=== PATIENT | male | born 1940 | race African-American/Black ===

== ENCOUNTER 2017-03-03 11:16 | Inpatient (IN) | payer OTHER, MEDICARE ==
[2017-03-03] VITALS (11 sets, daily range): BP systolic 144–224; BP diastolic 85–117; PULSE 71–104; RESP 16–20; TEMP 97–98.3; O2SAT 96–100
[~2017-03-03] VITALS: Ht 170.2 cm; Wt 97.7 kg
[2017-03-03] MEDS ORDERED: SODIUM CHLOR 0.9% 1000 ML INJ 1,000 ML IV ONE (11:23)
[2017-03-03] MEDS ORDERED: SODIUM CHLORIDE 0.9% FLUSH 10 ML FLUSH IV FLUSH PRN ×2 (11:30→14:00)
--- NOTE | 2017-03-03 11:41 | PD ---
HPI Chief Complaint: General Weakness Time Seen by Provider: 11:34 Travel History International Travel<30 days: No Contact w/Intl Traveler<30days: No Traveled to known affect area: No History of Present Illness HPI 77-year-old Afro-[place]ian male presents to emergency department via EMS after a near syncopal event at local restaurant all trying to urinate in the bathroom. Patient is alert and oriented currently although somewhat obtunded. He is complaining of need to urinate but is unable to. Patient is a poor historian. He appears disheveled, homeless, and dehydrated. His chief complaint is needing to urinate. He is an alcoholic who drinks daily. He denies any other injury or pain. He denies recent fever, chills, nausea, vomiting, or diarrhea. He has no known drug allergies. [facility] Past Medical History Medical History: Unable to Obtain Arthritis: Yes Blood Disorders: No Cancer: No Cardiovascular Problems: Yes Endocrine: No Genitourinary: Yes (unable to urinate) Immune Disorder: No Musculoskeletal: Yes Neurologic: No Psychiatric: No Respiratory: No Seizures: Yes (as a child) Past Surgical History AICD: No Joint Replacement: No Pacemaker: No Social History Alcohol Use: Yes Tobacco Use: Yes Substance Use: Yes (states crack cocaine and marijuana) Allergies-Medications (Allergen,Severity, Reaction): Coded Allergies: No Known Allergies (Verified , 03/03/17) Reported Meds & Prescriptions Reported Meds & Active Scripts Active Review of Systems ROS Limitations: Altered Mental Status, Poor Historian General / Constitutional: No: Fever Eyes: No: Visual changes HENT: No: Headaches Cardiovascular: No: Chest Pain or Discomfort Respiratory: No: Shortness of Breath Gastrointestinal: No: Abdominal Pain Genitourinary: No: Dysuria Musculoskeletal: No: Pain Skin: No Rash Neurologic: No: Weakness Psychiatric: No: Depression Endocrine: No: Polydipsia Hematologic/Lymphatic: No: Easy Bruising Physical Exam Exam Limitations: Clinical Condition, Altered Mental Status, Poor Historian Narrative GENERAL: Patient appears him to this and in mild to moderate distress due to urinary retention. Patient is disheveled and unkempt. SKIN: Warm and dry. Normal color. Poor turgor with tenting present. HEAD: Atraumatic. Normocephalic. EYES: Pupils equal and round. No scleral icterus. No injection or drainage. ENT: No nasal bleeding or discharge. Mucous membranes pink and moist. Pharynx is clear. Airway is patent. NECK: Trachea midline. No JVD. Supple nontender. CARDIOVASCULAR: Regular rate and rhythm. No murmurs gallops or rubs appreciated. RESPIRATORY: No accessory muscle use. Clear to auscultation. Breath sounds equal bilaterally. GASTROINTESTINAL: Abdomen soft, non-tender, nondistended. Hepatic and splenic margins not palpable. Abdominal pain is improved after Buchanan catheter placed with over a liter of urine drained within 5 minutes. MUSCULOSKELETAL: Extremities without clubbing, cyanosis, or edema. No obvious deformities. NEUROLOGICAL: Awake and alert. No obvious cranial nerve deficits. Motor grossly within normal limits. Five out of 5 muscle strength in the arms and legs. Normal speech. PSYCHIATRIC: Difficult to obtain based on the patient's clinical condition. Data Data Last Documented VS Vital Signs Date Time Temp Pulse Resp B/P Pulse Ox O2 Delivery O2 Flow Rate FiO2 03/03/17 11:41 97.0 84 16 174/103 97 Room Air Orders Complete Blood Count With Diff (03/03/17 11:23) Comprehensive Metabolic Panel (03/03/17 11:23) Lactic Acid (03/03/17 11:23) Urinalysis - C+S If Indicated (03/03/17 11:23) Iv Access Insert/Monitor (03/03/17 11:23) Ecg Monitoring (03/03/17 11:23) Oximetry (03/03/17 11:23) Sodium Chloride 0.9% Flush (Ns Flush) (03/03/17 11:30) Electrocardiogram (03/03/17 11:23) Urinary Catheter Insert/Apply (03/03/17 11:23) Blood Culture (03/03/17 11:23) Magnesium (Mg) (03/03/17 11:23) Ckmb (Isoenzyme) Profile (03/03/17 11:23) Troponin I (03/03/17 11:23) Act Partial Throm Time (Ptt) (03/03/17 11:23) Prothrombin Time / Inr (Pt) (03/03/17 11:23) Sodium Chlor 0.9% 1000 Ml Inj (Ns 1000 M (03/03/17 11:23) Drug Screen, Random Urine (03/03/17 11:33) Alcohol (Ethanol) (03/03/17 11:33) Thiamine Inj (Thiamine Inj) (03/03/17 11:45) Chest, Single Ap (03/03/17 11:41) Urine Culture (03/03/17 11:35) Ceftriaxone Inj (Rocephin Inj) (03/03/17 12:30) CKMB (03/03/17 11:40) CKMB% (03/03/17 11:40) Potassium Chlor 20 Meq Premix (Kcl 20 Me (03/03/17 13:00) Aspirin Chew (Aspirin Chew) (03/03/17 13:00) Metoprolol Tartrate Inj (Lopressor Inj) (03/03/17 13:00) Admit Order (Ed Use Only) (03/03/17 13:14) Labs Laboratory Tests Test 03/03/17 03/03/17 11:35 11:40 Urine Color LIGHT-YELLOW Urine Turbidity HAZY Urine pH 6.5 Urine Specific [place] 1.013 Urine Protein TRACE mg/dL Urine Glucose (UA) NEG mg/dL Urine Ketones NEG mg/dL Urine Occult Blood SMALL Urine Nitrite NEG Urine Bilirubin NEG Urine Urobilinogen LESS THAN 2.0 MG/DL Urine Leukocyte Esterase MOD Urine RBC 3 /hpf Urine WBC 37 /hpf Urine Bacteria MANY /hpf Urine Mucus FEW /lpf Microscopic Urinalysis Comment CULTURE INDICATED White Blood Count 9.6 TH/MM3 Red Blood Count 4.64 MIL/MM3 Hemoglobin 14.2 GM/DL Hematocrit 43.5 % Mean Corpuscular Volume 93.8 FL Mean Corpuscular Hemoglobin 30.7 PG Mean Corpuscular Hemoglobin 32.7 % Concent Red Cell Distribution Width 13.4 % Platelet Count 233 TH/MM3 Mean Platelet Volume 7.5 FL Neutrophils (%) (Auto) 89.4 % Lymphocytes (%) (Auto) 7.2 % Monocytes (%) (Auto) 2.7 % Eosinophils (%) (Auto) 0.1 % Basophils (%) (Auto) 0.6 % Neutrophils # (Auto) 8.6 TH/MM3 Lymphocytes # (Auto) 0.7 TH/MM3 Monocytes # (Auto) 0.3 TH/MM3 Eosinophils # (Auto) 0.0 TH/MM3 Basophils # (Auto) 0.1 TH/MM3 CBC Comment DIFF FINAL Differential Comment Prothrombin Time 12.7 SEC Prothromb Time International 1.1 RATIO Ratio Activated Partial 26.8 SEC Thromboplast Time Sodium Level 140 MEQ/L Potassium Level 2.4 MEQ/L Chloride Level 100 MEQ/L Carbon Dioxide Level 26.9 MEQ/L Anion Gap 13 MEQ/L Blood Urea Nitrogen 14 MG/DL Creatinine 1.41 MG/DL Estimat Glomerular Filtration 59 ML/MIN Rate Random Glucose 174 MG/DL Lactic Acid Level 2.7 mmol/L Calcium Level 7.9 MG/DL Magnesium Level 0.3 MG/DL Total Bilirubin 0.9 MG/DL Aspartate Amino Transf 37 U/L (AST/SGOT) Alanine Aminotransferase 26 U/L (ALT/SGPT) Alkaline Phosphatase 95 U/L Total Creatine Kinase 246 U/L Creatine Kinase MB 3.4 NG/ML Troponin I 0.41 NG/ML Total Protein 8.6 GM/DL Albumin 3.6 GM/DL Urine Opiates Screen NEG Urine Barbiturates Screen NEG Urine Amphetamines Screen NEG Urine Benzodiazepines Screen NEG Urine Cocaine Screen POS Urine Cannabinoids Screen NEG Ethyl Alcohol Level LESS THAN 3 MG/DL MDM Medical Decision Making Medical Screen Exam Complete: Yes Emergency Medical Condition: Yes Medical Record Reviewed: Yes Differential Diagnosis Urinary retention. Urinary sepsis. Prostatitis. Enlarged prostate. History of EtOH abuse. Dehydration. Elect to let him balance. Near syncope. Narrative Course Labs ordered including CBC, CMP, cardiac panel, lactic acid, magnesium, urinalysis, coagulation studies, and blood cultures 2. EKG is obtained. Chest x-ray is ordered. IV access is obtained and the patient is given 1000 mL of normal saline as well as 100 mg thiamine IV. Daily catheters placed by nursing staff with immediate symptomatic relief, and over a liter of urine drained within the first 5 minutes. CBC is unremarkable. EKG shows sinus rhythm with moderate T-wave abnormality suggestive of possible anterior ischemia although the patient is not having chest pain. This was reviewed with Dr. Pastrana. CMP is remarkable for a potassium of 2.4, creatinine 1.14, random glucose 174, lactic acid of 2.7, calcium is 7.9, magnesium of 0.3, troponin is elevated at 0.41, total protein is 8.6. Toxicology is positive for cocaine but otherwise negative. Serum alcohol is negative. Urinalysis is positive for urinary tract infection with moderate leukocyte esterase with 37 wbc's per high-power field, many bacteria, and urine is cultured. Patient is ordered to have 324 mg aspirin by mouth as well as metoprolol 5 mg per protocol 3. Patient is ordered KCl 20 mEq IV 2. 1255 hrs. call was placed to the hospitalist for admission. 1310 hrs. patient was discussed with Dr. Pitts who accepted the patient for admission. Sepsis Criteria SIRS Criteria (2 or more): Heart rate over 90 Sepsis Criteria (SIRS+source): Infect source susp/known Severe Sepsis (+one): Lactate >2 Criteria Outcome: Meets SIRS criteria Diagnosis Primary Impression: UTI (urinary tract infection) Qualified Code: N30.00 - Acute cystitis without hematuria Additional Impressions: Hypokalemia Elevated lactic acid level Elevated troponin Dehydration Acute urinary retention Admitting Information Admitting Physician Requests: Admit Condition: Stable Malcolm Quiros Mar 03, 2017 11:41
[2017-03-03] MEDS ORDERED: THIAMINE INJ 100 MG in SODIUM CHLORIDE 0.9% INJ 100 ML IV ONE (11:45)
[2017-03-03 11:58] LABS: AUTOMATED NEUTROPHIL # 8.6 TH/MM3 (1.8-7.7); BASOPHIL # 0.1 TH/MM3 (0-0.2); BASOPHIL % 0.6 % (0.0-2.0); EOSINOPHIL % 0.1 % (0.0-4.0); HEMATOCRIT 43.5 % (39.0-51.0); HEMO FLAGS DIFF FINAL; LYMPH % 7.2 % (9.0-44.0); LYMPHOCYTE # 0.7 TH/MM3 (1.0-4.8); MEAN CELL VOLUME 93.8 FL (80.0-100.0); MEAN CORPUSCULAR HEMOGLOBIN 30.7 PG (27.0-34.0); MEAN CORPUSCULAR HGB CONC 32.7 % (32.0-36.0); MONO % 2.7 % (0.0-8.0); NEUT % 89.4 % (16.0-70.0); PLATELET COUNT 233 TH/MM3 (150-450); RED BLOOD COUNT 4.64 MIL/MM3 (4.50-5.90); RED CELL DISTRIBUTION WIDTH 13.4 % (11.6-17.2); WHITE BLOOD COUNT 9.6 TH/MM3 (4.0-11.0)
[2017-03-03 11:59] LABS: BACTERIA, URINE MANY /hpf; BLOOD, URINE SMALL (NEG); COMMENT (UR) CULTURE INDICATED; CULTURE IF INDICATED CULTURE INDICATED; GLUCOSE,URINE NEG (NEG); KETONE, URINE NEG (NEG); MUCUS URINE FEW /lpf (OCC); NITRITE,URINE NEG (NEG); PH, URINE 6.5 (5.0-8.5); URINE COLOR LIGHT-YELLOW (YELLW/STRAW)
[2017-03-03 12:07] LABS: AMPHETAMINE, URINE NEG (NEG); BARBITURATES, URINE NEG (NEG); COCAINE, URINE POS (NEG)
[2017-03-03 12:11] LABS: APTT (PATIENT) 26.8 SEC (24.3-30.1); INTERNATIONAL NORMALIZED RATIO 1.1 RATIO; PROTHROMBIN TIME - PATIENT 12.7 SEC (9.8-11.6)
[2017-03-03 12:17] LABS: ANION GAP 13 MEQ/L (5-15)
--- NOTE | 2017-03-03 12:17 | RADRPT ---
EXAM DATE/TIME: 03/03/2017 11:49 [place] COMPARISON: No previous studies available for comparison. INDICATIONS : Short of breath. MEDICAL HISTORY : None. SURGICAL HISTORY : None. ENCOUNTER: Initial ACUITY: 1 day PAIN SCORE: 0/10 LOCATION: Bilateral chest FINDINGS: A single view of the chest demonstrates the lungs to be symmetrically aerated without evidence of mas s, infiltrate or effusion. The cardiomediastinal contours are unremarkable. Osseous structures are intact. CONCLUSION: No acute disease. Soto Moore MD FACR on March 03, 2017 at 12:15 Board Certified Radiologist. This report was verified electronically.
[2017-03-03 12:20] LABS: ALKALINE PHOSPHATASE 95 U/L (45-117); ALT (GPT) 26 U/L (12-78); AST (GOT) 37 U/L (15-37); BICARBONATE 26.9 MEQ/L (21.0-32.0); BLOOD UREA NITROGEN 14 MG/DL (7-18); CHLORIDE 100 MEQ/L (98-107); CREATINE KINASE 246 U/L (39-308); GLOMERULAR FILTRATION RATE 59 ML/MIN (>89); MAGNESIUM 0.3 MG/DL (1.5-2.5); SODIUM (NA) 140 MEQ/L (136-145); TOTAL BILIRUBIN ADULT 0.9 MG/DL (0.2-1.0)
[2017-03-03] MEDS ORDERED: cefTRIAXone INJ 1,000 MG in SODIUM CHLORIDE 0.9% INJ 100 ML IV ONE (12:30)
[2017-03-03 12:42] LABS: POTASSIUM 2.4 MEQ/L (3.5-5.1)
--- NOTE | 2017-03-03 12:58 | PD ---
Physical Exam Narrative I, Dr. Pastrana, have reviewed the advance practice practitioner's documentation and am in agreement, met with the patient face to face, made the diagnosis, and the medical decision making was done by me. *My assessment and Findings: Near syncope vs. vasovagal syncope vs. dehydration vs. electrolyte abnormality vs. UTI 77yo M with episode of near syncope when he was trying to urinate. Pt denies any chest pain or sob. Pt is AAOx3 and follows commands but seems a bit lethargic. Labs reviewed, no leukocytosis. Severe hypokalemia at 2.4, replaced with KCl IV. Creatinine elevated at 1.41. Lactic acid is elevated at 2.7. Pt given ceftriaxone IV. UA showed moderate leukocyte with many WBC. Troponin is elevated at 0.41, may be secondary to sepsis as pt has no chest pain or sob. Although, EKG did show some TW inversions in V1-V3 which is concerning. Will trend. Utox positive for cocaine. Case discussed with hospitalist Dr. Gonzalez and accepted to his service. Data Data Last Documented VS Vital Signs Date Time Temp Pulse Resp B/P Pulse Ox O2 Delivery O2 Flow Rate FiO2 03/03/17 11:41 97.0 84 16 174/103 97 Room Air Orders Complete Blood Count With Diff (03/03/17 11:23) Comprehensive Metabolic Panel (03/03/17 11:23) Lactic Acid (03/03/17 11:23) Urinalysis - C+S If Indicated (03/03/17 11:23) Iv Access Insert/Monitor (03/03/17 11:23) Ecg Monitoring (03/03/17 11:23) Oximetry (03/03/17 11:23) Sodium Chloride 0.9% Flush (Ns Flush) (03/03/17 11:30) Electrocardiogram (03/03/17 11:23) Urinary Catheter Insert/Apply (03/03/17 11:23) Blood Culture (03/03/17 11:23) Magnesium (Mg) (03/03/17 11:23) Ckmb (Isoenzyme) Profile (03/03/17 11:23) Troponin I (03/03/17 11:23) Act Partial Throm Time (Ptt) (03/03/17 11:23) Prothrombin Time / Inr (Pt) (03/03/17 11:23) Sodium Chlor 0.9% 1000 Ml Inj (Ns 1000 M (03/03/17 11:23) Drug Screen, Random Urine (03/03/17 11:33) Alcohol (Ethanol) (03/03/17 11:33) Thiamine Inj (Thiamine Inj) (03/03/17 11:45) Chest, Single Ap (03/03/17 11:41) Urine Culture (03/03/17 11:35) Ceftriaxone Inj (Rocephin Inj) (03/03/17 12:30) CKMB (03/03/17 11:40) CKMB% (03/03/17 11:40) Potassium Chlor 20 Meq Premix (Kcl 20 Me (03/03/17 13:00) Aspirin Chew (Aspirin Chew) (03/03/17 13:00) Metoprolol Tartrate Inj (Lopressor Inj) (03/03/17 13:00) Admit Order (Ed Use Only) (03/03/17 13:14) Labs Laboratory Tests Test 03/03/17 03/03/17 03/03/17 00:00 11:35 11:40 Nasal Screen MRSA (PCR) MRSA NOT DETECTED Urine Color LIGHT-YELLOW Urine Turbidity HAZY Urine pH 6.5 Urine Specific [place] 1.013 Urine Protein TRACE mg/dL Urine Glucose (UA) NEG mg/dL Urine Ketones NEG mg/dL Urine Occult Blood SMALL Urine Nitrite NEG Urine Bilirubin NEG Urine Urobilinogen LESS THAN 2.0 MG/DL Urine Leukocyte Esterase MOD Urine RBC 3 /hpf Urine WBC 37 /hpf Urine Bacteria MANY /hpf Urine Mucus FEW /lpf Microscopic Urinalysis Comment CULTURE INDICATED White Blood Count 9.6 TH/MM3 Red Blood Count 4.64 MIL/MM3 Hemoglobin 14.2 GM/DL Hematocrit 43.5 % Mean Corpuscular Volume 93.8 FL Mean Corpuscular Hemoglobin 30.7 PG Mean Corpuscular Hemoglobin 32.7 % Concent Red Cell Distribution Width 13.4 % Platelet Count 233 TH/MM3 Mean Platelet Volume 7.5 FL Neutrophils (%) (Auto) 89.4 % Lymphocytes (%) (Auto) 7.2 % Monocytes (%) (Auto) 2.7 % Eosinophils (%) (Auto) 0.1 % Basophils (%) (Auto) 0.6 % Neutrophils # (Auto) 8.6 TH/MM3 Lymphocytes # (Auto) 0.7 TH/MM3 Monocytes # (Auto) 0.3 TH/MM3 Eosinophils # (Auto) 0.0 TH/MM3 Basophils # (Auto) 0.1 TH/MM3 CBC Comment DIFF FINAL Differential Comment Prothrombin Time 12.7 SEC Prothromb Time International 1.1 RATIO Ratio Activated Partial 26.8 SEC Thromboplast Time Sodium Level 140 MEQ/L Potassium Level 2.4 MEQ/L Chloride Level 100 MEQ/L Carbon Dioxide Level 26.9 MEQ/L Anion Gap 13 MEQ/L Blood Urea Nitrogen 14 MG/DL Creatinine 1.41 MG/DL Estimat Glomerular Filtration 59 ML/MIN Rate Random Glucose 174 MG/DL Lactic Acid Level 2.7 mmol/L Calcium Level 7.9 MG/DL Magnesium Level 0.3 MG/DL Total Bilirubin 0.9 MG/DL Aspartate Amino Transf 37 U/L (AST/SGOT) Alanine Aminotransferase 26 U/L (ALT/SGPT) Alkaline Phosphatase 95 U/L Total Creatine Kinase 246 U/L Creatine Kinase MB 3.4 NG/ML Troponin I 0.41 NG/ML Total Protein 8.6 GM/DL Albumin 3.6 GM/DL Urine Opiates Screen NEG Urine Barbiturates Screen NEG Urine Amphetamines Screen NEG Urine Benzodiazepines Screen NEG Urine Cocaine Screen POS Urine Cannabinoids Screen NEG Ethyl Alcohol Level LESS THAN 3 MG/DL MDM Supervised Visit with ANGELA: Yes Interpretation(s) EKG: NSR 95bpm. Normal axis. TWI V2, V3. Normal axis. Critical Care Narrative Aggregate critical care time was 50 minutes. Time to perform other separately billable procedures was not included in the critical care time. My time did not include minutes spent treating any other patients simultaneously or on activities that did not directly contribute to the patient's treatment. The services I provided to this patient were to treat and/or prevent clinically significant deterioration that could result in: cardiovascular collapse or . I provided critical care services requiring my management, as noted below: Chart data review, documentation time, medication orders and management, vital sign assessments/reviewing monitor data, ordering and reviewing lab tests, ordering and interpreting/reviewing x-rays and diagnostic studies, care of the patient and discussion of the patient with the admitting physicians. Diagnosis Primary Impression: UTI (urinary tract infection) Qualified Code: N30.00 - Acute cystitis without hematuria Additional Impressions: Acute urinary retention Elevated lactic acid level Elevated troponin Dehydration Hypokalemia Admitting Information Admitting Physician Requests: Admit Condition: Stable Blanche Pastrana DO Mar 03, 2017 12:58
[2017-03-03] MEDS ORDERED: ASPIRIN 81 MG CHEW TAB CHEW ONE (13:00)
[2017-03-03 13:01] LABS: CKMB 3.4 NG/ML (0.5-3.6)
[2017-03-03] MEDS: METOPROLOL TARTRATE 5 MG/5 ML VIAL IVS SCH ×3 (13:05→13:31)
[2017-03-03] MEDS: POTASSIUM CHLOR 20 MEQ PREMIX 100 ML IV SCH ×2 (13:12→15:06)
[2017-03-03] MEDS ORDERED: MAGNESIUM HYDROXIDE SUSP 30 ML CUP PO PRN (14:00)
[2017-03-03] MEDS ORDERED: ACETAMINOPHEN 325 MG TAB PO PRN (14:00)
[2017-03-03] MEDS ORDERED: BISACODYL 10 MG SUPP RECTAL PRN (14:00)
[2017-03-03] MEDS ORDERED: NALOXONE HCL 0.4 MG/ML AMP IV PRN (14:00)
[2017-03-03] MEDS ORDERED: LACTULOSE SYRUP 20 GM/30 ML CUP PO PRN (14:00)
[2017-03-03] MEDS ORDERED: SENNOSIDES 8.6 MG TAB PO PRN (14:00)
--- NOTE | 2017-03-03 14:10 | HHI.HP ---
[facility] Service [place] [facility] Primary Care Physician Unknown Admission Diagnosis Urosepsis/Hypokalemia/dehydration/elevated troponin/ Diagnoses: (1) UTI (urinary tract infection) (2) Elevated lactic acid level (3) Acute urinary retention (4) Elevated troponin (5) Hypokalemia (6) Acute kidney injury (7) Hypertension (8) Syncope Chief Complaint: syncopal episode Travel History International Travel<30 Days: No Contact w/Intl Traveler <30 Da: No Traveled to Known Affected Are: No History of Present Illness Condition to the 77-year-old male who presented to the emergency department after a syncopal episode. He states that he was in the restroom trying to urinate and passed out. He has had difficulty urinating for the past few days. Denies chest pain, dyspnea. Denies lightheadedness or dizziness. Denies headache , vision changes. Denies numbness, tingling, weakness of his extremities. Review of Systems Constitutional: DENIES: Fever, Chills, Night Sweats Eyes: DENIES: Blurred vision, Vision loss Ears, nose, mouth, throat: DENIES: Hearing loss Respiratory: DENIES: Cough, Wheezing, Sputum production, Shortness of breath Cardiovascular: COMPLAINS OF: Syncope, DENIES: Chest pain, Palpitations, Dyspnea on Exertion, Lower Extremity Edema Gastrointestinal: DENIES: Abdominal pain, Constipation, Diarrhea, Nausea, Vomiting Genitourinary: DENIES: Urinary frequency, Urinary incontinence, Urgency, Hematuria, Dysuria, Nocturia Musculoskeletal: DENIES: Joint pain, Muscle aches Integumentary: DENIES: Pruritus, Rash Hematologic/lymphatic: DENIES: Bruising Neurologic: DENIES: Headache Past Family Social History Past Medical History Osteoarthritis Hypertension Past Surgical History Denies Reported Medications Patient states that he takes 2 medications, one for blood pressure and one for his stomach, but he does not know what they are. Allergies: Coded Allergies: No Known Allergies (Verified , 03/03/17) Family History He is not aware of any family history. Social History Smokes cigarettes "occasionally". Admits to marijuana use. Previously admitted to crack cocaine use. States that he used cocaine once, about a year ago. Drinks 1 beer per day. Physical Exam Vital Signs Vital Signs Date Time Temp Pulse Resp B/P Pulse Ox O2 Delivery O2 Flow Rate FiO2 03/03/17 13:40 77 18 159/102 98 Room Air 03/03/17 13:31 91 16 184/109 99 Room Air 03/03/17 11:41 97.0 84 16 174/103 97 Room Air 03/03/17 11:41 97.0 91 16 174/103 97 Room Air 03/03/17 11:31 95 18 97 Room Air 03/03/17 11:23 97.0 90 20 224/104 99 Physical Exam GENERAL: Thin, disheveled male in no acute distress. HEENT: Normocephalic, atraumatic. Pupils equal, round and reactive. Extraocular movements intact. No scleral icterus. No injection or drainage. Oropharynx is clear. Mucous membranes are moist. Poor dentition. CARDIOVASCULAR: Regular rate and rhythm without murmurs, gallops, or rubs. RESPIRATORY: Clear to auscultation. No wheezes, rales, or rhonchi. Breathing is non-labored. GASTROINTESTINAL: Abdomen soft, non-tender, nondistended. EXTREMITIES: No lower extremity edema. No calf tenderness. PSYCH: Alert and oriented x 3. Laboratory Laboratory Tests Test 03/03/17 03/03/17 11:35 11:40 Urine Color LIGHT-YELLOW Urine Turbidity HAZY Urine pH 6.5 Urine Specific [place] 1.013 Urine Protein TRACE Urine Glucose (UA) NEG Urine Ketones NEG Urine Occult Blood SMALL Urine Nitrite NEG Urine Bilirubin NEG Urine Urobilinogen LESS THAN 2.0 Urine Leukocyte Esterase MOD Urine RBC 3 Urine WBC 37 Urine Bacteria MANY Urine Mucus FEW Microscopic Urinalysis Comment CULTURE INDICATED White Blood Count 9.6 Red Blood Count 4.64 Hemoglobin 14.2 Hematocrit 43.5 Mean Corpuscular Volume 93.8 Mean Corpuscular Hemoglobin 30.7 Mean Corpuscular Hemoglobin 32.7 Concent Red Cell Distribution Width 13.4 Platelet Count 233 Mean Platelet Volume 7.5 Neutrophils (%) (Auto) 89.4 Lymphocytes (%) (Auto) 7.2 Monocytes (%) (Auto) 2.7 Eosinophils (%) (Auto) 0.1 Basophils (%) (Auto) 0.6 Neutrophils # (Auto) 8.6 Lymphocytes # (Auto) 0.7 Monocytes # (Auto) 0.3 Eosinophils # (Auto) 0.0 Basophils # (Auto) 0.1 CBC Comment DIFF FINAL Differential Comment Prothrombin Time 12.7 Prothromb Time International 1.1 Ratio Activated Partial 26.8 Thromboplast Time Sodium Level 140 Potassium Level 2.4 Chloride Level 100 Carbon Dioxide Level 26.9 Anion Gap 13 Blood Urea Nitrogen 14 Creatinine 1.41 Estimat Glomerular Filtration 59 Rate Random Glucose 174 Lactic Acid Level 2.7 Calcium Level 7.9 Magnesium Level 0.3 Total Bilirubin 0.9 Aspartate Amino Transf 37 (AST/SGOT) Alanine Aminotransferase 26 (ALT/SGPT) Alkaline Phosphatase 95 Total Creatine Kinase 246 Creatine Kinase MB 3.4 Troponin I 0.41 Total Protein 8.6 Albumin 3.6 Urine Opiates Screen NEG Urine Barbiturates Screen NEG Urine Amphetamines Screen NEG Urine Benzodiazepines Screen NEG Urine Cocaine Screen POS Urine Cannabinoids Screen NEG Ethyl Alcohol Level LESS THAN 3 Date/Time Procedure Status Source Growth 03/03/17 11:40 Aerobic Blood Culture Received Blood Peripheral Pending 03/03/17 11:40 Anaerobic Blood Culture Received Blood Peripheral Pending 03/03/17 11:35 Urine Culture Received Urine Random Urine Pending Result Diagram: 03/03/17 1140 03/03/17 1140 Imaging Last Impressions Chest X-Ray 03/03/17 1141 Signed Impressions: Service Date/Time: Friday, March 03, 2017 11:49 - CONCLUSION: No acute disease. Soto Moore MD FACR Assessment and Plan Assessment and Plan 1. Urinary retention: Buchanan catheter placed and 1000 mL of urine was drained. Continue Buchanan catheter. Consult urology. 2. Acute kidney injury: Check renal ultrasound. Monitor BUN and creatinine. Possibly obstructive uropathy. IV fluids. 3. Syncopal episode: Likely vasovagal. Patient was trying to urinate and unable to do so at the time of the syncopal episode. Check echocardiogram. Monitor on telemetry. 4. Elevated troponin: Check serial cardiac enzymes and EKGs. Consider cardiology consultation. 5. UTI: IV Rocephin. 6. Hypokalemia: Received supplementation in the ER. Follow labs. 7. Lactic acidosis: Follow serum lactic acid level. 8. Hypertension: Patient states that he is on a medication for blood pressure, but he does not know what it is. He did not take his medication today. Add clonidine as needed. Start amlodipine. 9. DVT prophylaxis: Heparin. Problem Qualifiers (1) UTI (urinary tract infection): Qualified Code: N30.00 - Acute cystitis without hematuria Aditya Pitts MD Mar 03, 2017 14:10
[2017-03-03] MEDS: amLODIPine BESYLATE 5 MG TAB PO SCH (15:06)
[2017-03-03] MEDS: HEPARIN SODIUM - SQ 10,000 UNITS/ML VIAL SQ SCH (15:06)
[2017-03-03] MEDS: cloNIDine HCL 0.1 MG TAB PO PRN (15:35)
[2017-03-03] MEDS: niCARdipine INJ 25 MG in SODIUM CHLOR 0.9% 250 ML INJ 250 ML IV SCH ×2 (17:28→22:47)
[2017-03-03 18:31] LABS: LACTIC ACID GHOST NOT REPORTABLE
[2017-03-03] MEDS: SODIUM CHLORIDE 0.9% FLUSH 10 ML FLUSH IV FLUSH SCH (20:03)
[2017-03-03] MEDS: DOCUSATE SODIUM 50 MG/SENNA 8.6 MG TAB PO SCH (20:03)
[2017-03-03 21:23] LABS: CKMB 8.4 NG/ML (0.5-3.6)
[2017-03-03] MEDS: ONDANSETRON HCL 4 MG/2 ML VIAL IVP PRN (21:26)
--- NOTE | 2017-03-03 22:38 | ECHRPT ---
Indication: Transient cerebral ischemic attack, unspecified CONCLUSIONS The left ventricular systolic function is normal with an estimated ejection fraction in the range of 55-65%. Mild tricuspid valve regurgitation. Trivial pulmonary valve regurgitation. BP: 159 / 102 HR: Rhythm: MEASUREMENTS (Male / Female) Normal Values Technical Quality:Poor 2D ECHO LV Diastolic Diameter PLAX 3.1 cm 4.2 - 5.9 / 3.9 - 5.3 cm LV Systolic Diameter PLAX 2.3 cm IVS Diastolic Thickness 1.2 cm 0.6 - 1.0 / 0.6 - 0.9 cm LVPW Diastolic Thickness 1.0 cm 0.6 - 1.0 / 0.6 - 0.9 cm LV Relative Wall Thickness 0.7 RV Internal Dim ED PLAX 2.4 cm M-MODE Aortic Root Diameter MM 3.4 cm LA Systolic Diameter MM 3.3 cm LA Ao Ratio MM 1.0 AV Cusp Separation MM 1.7 cm DOPPLER Mitral E Point Velocity 43.4 cm/s Mitral A Point Velocity 105.0 cm/s Mitral E to A Ratio 0.4 TR Peak Velocity 284.0 cm/s TR Peak Gradient 32.3 mmHg FINDINGS LEFT VENTRICLE Normal left ventricular size and wall thickness. The left ventricular systolic function is normal wi th an estimated ejection fraction in the range of 55-65%. Left ventricular diastolic function parameters a re normal. RIGHT VENTRICLE Normal right ventricular size and systolic function. LEFT ATRIUM The left atrial size is normal. RIGHT ATRIUM The right atrial size is normal. ATRIAL SEPTUM Normal atrial septal thickness without atrial level shunting by limited color doppler interrogation. AORTA The aortic root and proximal ascending aorta are normal in size on limited imaging. MITRAL VALVE Structurally normal mitral valve. No mitral valve stenosis or regurgitation. AORTIC VALVE Trileaflet aortic valve. No aortic valve stenosis or regurgitation. TRICUSPID VALVE Structurally normal tricuspid valve. No tricuspid valve stenosis there is mild tricuspid valve regur gitation. PULMONARY VALVE no pulmonary valve stenosis. Trivial pulmonary valve regurgitation. VESSELS The inferior vena cava is normal in size. PERICARDIUM No pericardial effusion. Savage James MD (Electronically Signed) Final Date:03 March 2017 22:37
[2017-03-04] VITALS (18 sets, daily range): BP systolic 98–127; BP diastolic 53–80; PULSE 75–104; RESP 17–24; TEMP 98.3–98.8; O2SAT 95–100
[2017-03-04] MEDS: HEPARIN SODIUM - SQ 10,000 UNITS/ML VIAL SQ SCH ×2 (03:15→13:07)
[2017-03-04 05:13] LABS: CKMB 9.9 NG/ML (0.5-3.6)
[2017-03-04 05:21] LABS: BICARBONATE 29.6 MEQ/L (21.0-32.0)
[2017-03-04 05:29] LABS: POTASSIUM 2.4 MEQ/L (3.5-5.1)
[2017-03-04] MEDS ORDERED: POTASSIUM CHLORIDE 25 MEQ EFFERVESCENT TAB PO ONE (06:00)
[2017-03-04] MEDS: SODIUM CHLOR 0.9% 1000 ML INJ 1,000 ML IV SCH ×3 (06:18→19:51)
[2017-03-04] MEDS: POTASSIUM CHLOR 20 MEQ PREMIX 100 ML IV SCH ×3 (06:18→11:31)
[2017-03-04] MEDS: amLODIPine BESYLATE 5 MG TAB PO SCH (07:53)
[2017-03-04] MEDS: DOCUSATE SODIUM 50 MG/SENNA 8.6 MG TAB PO SCH ×2 (07:53→19:51)
[2017-03-04] MEDS: SODIUM CHLORIDE 0.9% FLUSH 10 ML FLUSH IV FLUSH SCH ×2 (07:53→19:51)
[2017-03-04] MEDS ORDERED: MAGNESIUM SULFATE INJ 4 GM in SODIUM CHLORIDE 0.9% INJ 92 ML IV PRN (09:30)
[2017-03-04] MEDS ORDERED: POTASSIUM CHLORIDE 25 MEQ EFFERVESCENT TAB PO PRN (09:30)
[2017-03-04] MEDS ORDERED: POTASSIUM PHOSPHATE INJ 30 MMOL in SODIUM CHLOR 0.9% 250 ML INJ 250 ML IV PRN (09:30)
[2017-03-04] MEDS ORDERED: POTASSIUM CHLOR 20 MEQ PREMIX 100 ML IV PRN (09:30)
[2017-03-04] MEDS ORDERED: POTASSIUM PHOSPHATE MONOBASIC 500 MG TAB PO PRN (09:30)
[2017-03-04] MEDS ORDERED: SODIUM PHOSPHATE INJ 30 MMOL in SODIUM CHLOR 0.9% 250 ML INJ 240 ML IV PRN (09:30)
[2017-03-04] MEDS ORDERED: POTASSIUM CHLOR 40 MEQ PREMIX 100 ML IV PRN ×2 (09:30)
[2017-03-04] MEDS ORDERED: MAGNESIUM OXIDE 400 MG TAB PO PRN (09:30)
[2017-03-04] MEDS ORDERED: MAGNESIUM SULFATE INJ 2 GM in SODIUM CHLORIDE 0.9% INJ 96 ML IV PRN (09:30)
[2017-03-04] MEDS ORDERED: POTASSIUM PHOSPHATE MONOBASIC 500 MG TAB PO/TUBE PRN (09:30)
--- NOTE | 2017-03-04 09:39 | PD.CONS ---
HPI Consult Requested By Reason for Consult Syncope, elevated troponin Primary Care Physician Unknown History of Present Illness The patient denies any cardiac history. He lives in a single room in apparently was urinating. He really denies any major problems with urination but apparently passed out which was not witnessed. He does not remember this. He otherwise is moderately active and has no cardiopulmonary symptoms whatsoever. Electrocardiogram shows sinus rhythm with nonspecific T-wave changes but we have no old EKGs to compare. Telemetry shows sinus rhythm. Review of Systems Consitutional: COMPLAINS OF: Fatigue, Weight loss HEENT: COMPLAINS OF: Change in hearing Respiratory: DENIES: Snoring, Wheezing, Sputum production Cardiovascular: COMPLAINS OF: Syncope Neurologic: COMPLAINS OF: Poor Balance, DENIES: Tingling or numbness Musculoskeletal: COMPLAINS OF: Joint pain Psychiatric: DENIES: Anxiety, Depression Past Family Social History Allergies: Coded Allergies: No Known Allergies (Verified , 03/03/17) Past Medical History The patient denies hypertension, diabetes, hyperlipidemia. Past Surgical History TURP Reported Medications Reported Meds & Active Scripts Active Active Ordered Medications Current Medications Medications (Trade) Dose Ordered Sig/Arabella Route Start Time Stop Time Status Last Admin (NS Flush) 2 ml UNSCH PRN IV FLUSH 03/03/17 14:00 (NS Flush) 2 ml BID IV FLUSH 03/03/17 21:00 03/04/17 07:53 (Tylenol) 650 mg Q4H PRN PO 03/03/17 14:00 (Zofran Inj) 4 mg Q6H PRN IVP 03/03/17 14:00 03/03/17 21:26 (Heparin Inj) 5,000 units Q12H SQ 03/03/17 15:00 03/04/17 03:15 (Narcan Inj) 0.4 mg UNSCH PRN IV 03/03/17 14:00 (Juliet-Colace) 1 tab BID PO 03/03/17 21:00 03/04/17 07:53 (Milk Of Magnesia Liq) 30 ml Q12H PRN PO 03/03/17 14:00 (Senokot) 17.2 mg Q12H PRN PO 03/03/17 14:00 (Dulcolax Supp) 10 mg DAILY PRN RECTAL 03/03/17 14:00 (Lactulose Liq) 30 ml DAILY PRN PO 03/03/17 14:00 (Catapres) 0.1 mg Q6H PRN PO 03/03/17 14:15 03/03/17 15:35 Amlodipine Besylate 5 mg 5 mg DAILY PO 03/03/17 14:15 03/04/17 07:53 Nicardipine HCl 25 mg/Sodium Chloride 260 ml @ 0 mls/hr TITRATE IV 03/03/17 17:00 Hold 03/03/17 22:47 Potassium Chloride 100 ml @ 50 mls/hr Q2H IV 03/04/17 06:00 03/04/17 11:59 03/04/17 09:26 Sodium Chloride 1,000 ml @ 125 mls/hr Q8H IV 03/04/17 06:15 03/06/17 06:14 03/04/17 06:18 Potassium Chloride 100 ml @ 50 mls/hr Q2H PRN IV 03/04/17 09:30 (KCl 20 Meq Premix Inj) 100 ml @ 50 mls/hr Q2H PRN IV 03/04/17 09:30 UNV Potassium Bicarb/ Potassium Chloride 50 meq 50 meq UNSCH PRN PO 03/04/17 09:30 UNV Potassium Chloride 100 ml @ 25 mls/hr UNSCH PRN IV 03/04/17 09:30 UNV Potassium Chloride 100 ml @ 50 mls/hr Q2H PRN IV 03/04/17 09:30 UNV (Magnesium Sulfate Inj/NS Inj) 100 ml @ 50 mls/hr UNSCH PRN IV 03/04/17 09:30 UNV Magnesium Oxide 800 mg 800 mg UNSCH PRN PO 03/04/17 09:30 UNV (Magnesium Sulfate Inj/NS Inj) 100 ml @ 50 mls/hr UNSCH PRN IV 03/04/17 09:30 UNV Potassium Phosphate 2000 mg 2,000 mg Q4H PRN PO 03/04/17 09:30 UNV (Sodium Phosphate Inj/NS 250 ml Inj) 250 ml @ 42 mls/hr UNSCH PRN IV 03/04/17 09:30 UNV Potassium Phosphate 2000 mg 2,000 mg UNSCH PRN PO/TUBE 03/04/17 09:30 UNV Potassium Phosphate 30 mmol/ Sodium Chloride 260 ml @ 42 mls/hr UNSCH PRN IV 03/04/17 09:30 UNV (Magnesium Sulfate 1 Gm Premix) 100 ml @ 100 mls/hr Q1H IV 03/04/17 09:30 03/04/17 11:29 Family History Noncontributory Social History The patient states he is single and lives in a single room. He has a rare cigarette and an occasional drink. He does use crack and marijuana. Physical Exam Vital Signs Vital Signs Date Time Temp Pulse Resp B/P Pulse Ox O2 Delivery O2 Flow Rate FiO2 03/04/17 08:00 98.8 98 119/80 98 03/04/17 08:00 98 03/04/17 06:00 97 03/04/17 04:00 98.5 100 18 114/69 100 03/04/17 04:00 75 03/04/17 02:00 95 03/04/17 00:00 98.4 92 18 121/71 100 03/04/17 00:00 89 03/03/17 22:00 91 03/03/17 20:00 98.3 104 20 146/85 96 03/03/17 20:00 104 03/03/17 19:50 100 03/03/17 18:30 101 18 144/86 98 03/03/17 17:58 98 19 169/93 99 03/03/17 17:03 71 18 202/102 98 03/03/17 16:19 72 18 211/117 98 03/03/17 13:40 77 18 159/102 98 Room Air 03/03/17 13:31 91 16 184/109 99 Room Air 03/03/17 11:41 97.0 84 16 174/103 97 Room Air 03/03/17 11:41 97.0 91 16 174/103 97 Room Air 03/03/17 11:31 95 18 97 Room Air 03/03/17 11:23 97.0 90 20 224/104 99 Physical Exam CONSTITUTIONAL: A thin patient in no apparent distress. EYES: Conjunctiva normal. Sclera nonicteric. Eyelids normal. No xanthelasma. HEENT: Oral mucosa normal without pallor or cyanosis. NECK: JVD less than or equal to 5 cm of water. RESPIRATORY: Breathing is unlabored without accessory muscle use. Normal breath sounds. No wheezes, rales or rubs present. CARDIOVASCULAR: Normal point of maximal impulse. No cardiac thrill present. Regular rate and rhythm. No murmurs, gallops, rubs or clicks present. PULSES: Carotid arteries: Normal pulses bilaterally without bruits. Palmar arteries: Radial pulses 2+ bilaterally Abdominal aorta: Aortic pulses normal without bruits or enlargement. Femoral arteries: 2+ bilaterally. No bruits present. Pedal pulses: 1+ bilaterally PERIPHERAL CIRCULATION: No cyanosis, clubbing, edema or varicosities present. GASTROINTESTINAL: Normal bowel sounds. Nontender without rigidity or guarding. No masses present. No hepatomegaly. Liver is nontender to palpation and spleen is nonpalpable. Digital rectal exam-not indicated for cardiovascular exam. MUSCULOSKELETAL: No kyphosis or scoliosis present. The patient is not ambulated. Able to undergo rehabilitation. SKIN: Skin turgor is normal. No rashes. NEUROLOGIC: Grossly oriented to person, place and time. Normal mood and appropriate affect. Laboratory Laboratory Tests Test 03/03/17 03/03/17 03/03/17 03/03/17 11:35 11:40 16:30 20:22 Urine Color LIGHT-YELLOW Urine Turbidity HAZY Urine pH 6.5 Urine Specific [place] 1.013 Urine Protein TRACE Urine Glucose (UA) NEG Urine Ketones NEG Urine Occult Blood SMALL Urine Nitrite NEG Urine Bilirubin NEG Urine Urobilinogen LESS THAN 2.0 Urine Leukocyte Esterase MOD Urine RBC 3 Urine WBC 37 Urine Bacteria MANY Urine Mucus FEW Microscopic Urinalysis Comment CULTURE INDICATED White Blood Count 9.6 Red Blood Count 4.64 Hemoglobin 14.2 Hematocrit 43.5 Mean Corpuscular Volume 93.8 Mean Corpuscular Hemoglobin 30.7 Mean Corpuscular Hemoglobin 32.7 Concent Red Cell Distribution Width 13.4 Platelet Count 233 Mean Platelet Volume 7.5 Neutrophils (%) (Auto) 89.4 Lymphocytes (%) (Auto) 7.2 Monocytes (%) (Auto) 2.7 Eosinophils (%) (Auto) 0.1 Basophils (%) (Auto) 0.6 Neutrophils # (Auto) 8.6 Lymphocytes # (Auto) 0.7 Monocytes # (Auto) 0.3 Eosinophils # (Auto) 0.0 Basophils # (Auto) 0.1 CBC Comment DIFF FINAL Differential Comment Prothrombin Time 12.7 Prothromb Time International 1.1 Ratio Activated Partial 26.8 Thromboplast Time Sodium Level 140 Potassium Level 2.4 Chloride Level 100 Carbon Dioxide Level 26.9 Anion Gap 13 Blood Urea Nitrogen 14 Creatinine 1.41 Estimat Glomerular Filtration 59 Rate Random Glucose 174 Lactic Acid Level 2.7 3.6 2.7 Calcium Level 7.9 Magnesium Level 0.3 Total Bilirubin 0.9 Aspartate Amino Transf 37 (AST/SGOT) Alanine Aminotransferase 26 (ALT/SGPT) Alkaline Phosphatase 95 Total Creatine Kinase 246 441 Creatine Kinase MB 3.4 8.4 Troponin I 0.41 0.40 Total Protein 8.6 Albumin 3.6 Urine Opiates Screen NEG Urine Barbiturates Screen NEG Urine Amphetamines Screen NEG Urine Benzodiazepines Screen NEG Urine Cocaine Screen POS Urine Cannabinoids Screen NEG Ethyl Alcohol Level LESS THAN 3 Creatine Kinase MB % 1.9 Test 03/04/17 04:02 Sodium Level 140 Potassium Level 2.4 Chloride Level 99 Carbon Dioxide Level 29.6 Anion Gap 11 Blood Urea Nitrogen 12 Creatinine 1.11 Estimat Glomerular Filtration 78 Rate Random Glucose 87 Calcium Level 7.5 Total Creatine Kinase 617 Creatine Kinase MB 9.9 Creatine Kinase MB % 1.6 Troponin I 0.35 Date/Time Procedure Status Source Growth 03/03/17 11:40 Aerobic Blood Culture Received Blood Peripheral Pending 03/03/17 11:40 Anaerobic Blood Culture Received Blood Peripheral Pending 03/03/17 11:35 Urine Culture Received Urine Random Urine Pending Result Diagram: 03/03/17 1140 03/04/17 0402 Imaging Last 48 hours Impressions Chest X-Ray 03/03/17 1141 Signed Impressions: Service Date/Time: Friday, March 03, 2017 11:49 - CONCLUSION: No acute disease. Soto Moore MD FACR Assessment and Plan Assessment and Plan Problems: Syncopethe etiology is unclear. He has not had any arrhythmia and this could' ve been vasovagal, arrhythmia in the setting of hypokalemia, seizure or others. Crack and marijuana use Urosepsis Acute kidney injury Noncompliance Elevated troponinnonspecific although somewhat concerning with abnormal EKG. Severe hypokalemia Recommendations: Substance abstinence DVT prophylaxis per primary service. I would have him on a baby aspirin daily for now. Antibiotics and electrolyte normalization per primary service. When the patient is stable I would pursue either SPECT nuclear or CT angiogram of the coronary arteries. His echocardiogram showed preserved ventricular function. I will not follow but be available should any significant abnormalities occur on the recommended testing. Edd Lee MD Mar 04, 2017 09:39
--- NOTE | 2017-03-04 10:08 | HHI.PR ---
Subjective Remarks Follow up electrolyte abnormalities, syncope. Patient states that he feels better today. Denies chest pain, dyspnea. Objective Vitals Vital Signs Date Time Temp Pulse Resp B/P Pulse Ox O2 Delivery O2 Flow Rate FiO2 03/04/17 08:00 98.8 98 119/80 98 03/04/17 08:00 98 03/04/17 06:00 97 03/04/17 04:00 98.5 100 18 114/69 100 03/04/17 04:00 75 03/04/17 02:00 95 03/04/17 00:00 98.4 92 18 121/71 100 03/04/17 00:00 89 03/03/17 22:00 91 03/03/17 20:00 98.3 104 20 146/85 96 03/03/17 20:00 104 03/03/17 19:50 100 03/03/17 18:30 101 18 144/86 98 03/03/17 17:58 98 19 169/93 99 03/03/17 17:03 71 18 202/102 98 03/03/17 16:19 72 18 211/117 98 03/03/17 13:40 77 18 159/102 98 Room Air 03/03/17 13:31 91 16 184/109 99 Room Air 03/03/17 11:41 97.0 84 16 174/103 97 Room Air 03/03/17 11:41 97.0 91 16 174/103 97 Room Air 03/03/17 11:31 95 18 97 Room Air 03/03/17 11:23 97.0 90 20 224/104 99 I/O 03/03/17 03/03/17 03/03/17 03/04/17 03/04/17 03/04/17 06:59 14:59 22:59 06:59 14:59 22:59 Intake Total 1100 ml 632 ml 239 ml Output Total 1000 ml 1625 ml 200 ml Balance 100 ml -993 ml 39 ml Intake Oral 100 ml IV Total 1100 ml 532 ml 239 ml Output Urine Total 1000 ml 1125 ml 200 ml Emesis 500 ml Result Diagram: 03/03/17 1140 03/04/17 0402 Imaging Last Impressions Chest X-Ray 03/03/17 1141 Signed Impressions: Service Date/Time: Friday, March 03, 2017 11:49 - CONCLUSION: No acute disease. Soto Moore MD FACR Objective Remarks General: Thin elderly male in no acute distress. Heart: Regular rate and rhythm. No murmur. Lungs: Clear to auscultation bilaterally. No wheezes, rales, or rhonchi. Breathing is nonlabored. Abdomen: Soft, nontender, nondistended. Extremities: No lower extremity edema. Psych: Alert and oriented. Procedures None Urinary Catheter: Yes Assessment to: Continue Buchanan insert reason: Obstruction/Retention Vascular Central Line Catheter: No A/P Problem List: (1) UTI (urinary tract infection) ICD Code: N39.0 Status: Acute (2) Elevated lactic acid level ICD Code: R79.89 Status: Acute (3) Acute urinary retention ICD Code: R33.8 Status: Acute (4) Elevated troponin ICD Code: R74.8 Status: Acute (5) Hypokalemia ICD Code: E87.6 Status: Acute (6) Acute kidney injury ICD Code: N17.9 Status: Acute (7) Hypertension ICD Code: I10 Status: Acute (8) Syncope ICD Code: R55 Status: Acute (9) Hypomagnesemia ICD Code: E83.42 Status: Acute Assessment and Plan 1. Urinary retention: Buchanan catheter placed and 1000 mL of urine was drained. Continue Buchanan catheter. Urology consultation is pending. 2. Acute kidney injury: Check renal ultrasound. Monitor BUN and creatinine. Possibly obstructive uropathy. IV fluids. 3. Syncopal episode: Likely vasovagal. Patient was trying to urinate and unable to do so at the time of the syncopal episode. Echocardiogram report noted. Ejection fraction 55-65%. Monitor on telemetry. 4. Elevated troponin: Check serial cardiac enzymes and EKGs. Appreciate cardiology recommendations. 5. UTI: IV Rocephin. 6. Hypokalemia: Potassium still low. Supplement and recheck labs. 7. Lactic acidosis: Follow serum lactic acid level. 8. Hypertension: Patient states that he is on a medication for blood pressure, but he does not know what it is. Add clonidine as needed. Continue amlodipine. Patient was on Cardene drip until early this morning. Blood pressure control is improved. 9. Hypomagnesemia: Supplement magnesium and monitor labs. 10. DVT prophylaxis: Heparin. 11. Substance abuse: Urine drug screen positive for cocaine. Patient states that he formerly used crack cocaine, but stopped a year ago. Problem Qualifiers (1) UTI (urinary tract infection): Qualified Code: N30.00 - Acute cystitis without hematuria Aditya Pitts MD Mar 04, 2017 10:08
--- NOTE | 2017-03-04 10:18 | PD.CONS ---
[facility] Service Urology Consult Requested By Reason for Consult Urinary retention Primary Care Physician Unknown Diagnosis: (1) UTI (urinary tract infection) ICD Code: N39.0 (2) Elevated lactic acid level ICD Code: R79.89 (3) Acute urinary retention ICD Code: R33.8 (4) Elevated troponin ICD Code: R74.8 (5) Hypokalemia ICD Code: E87.6 (6) Acute kidney injury ICD Code: N17.9 (7) Hypertension ICD Code: I10 (8) Syncope ICD Code: R55 (9) Hypomagnesemia ICD Code: E83.42 History of Present Illness 77-year-old gentleman with difficulty urinating over the past several days who presented to the emergency room for further management of a syncopal episode. Apparently the patient was in the restroom and trying to void and subsequently passed out. Buchanan catheter was placed upon arrival to the emergency room with evacuation of 1 L yellow urine. Urinalysis was consistent with a urinary tract infection. Patient is also being evaluated by cardiology as he had elevation in the serum troponin levels. At the time of consultation the patient was resting quietly in the intensive care unit and did not appear to be in any distress. His Buchanan catheter was draining clear yellow urine. He reports progressive deterioration in his voiding pattern up until present hospitalization. He denies any prior urologic history. Review of Systems Constitutional: DENIES: Fever, Chills Cardiovascular: DENIES: Chest pain Gastrointestinal: DENIES: Abdominal pain Genitourinary: DENIES: Hematuria Musculoskeletal: DENIES: Back pain Except as stated in HPI: all other systems reviewed are Neg Past Family Social History Past Medical History Hypertension Arthritis Past Surgical History Denies major surgery Reported Medications Refer to EMR Allergies: Coded Allergies: No Known Allergies (Verified , 03/03/17) Active Ordered Medications Refer to EMR Family History Reviewed and noncontributory Social History Occasional tobacco and marijuana use Occasional alcohol use Denies intravenous drug abuse Physical Exam Vital Signs Date Time Temp Pulse Resp B/P Pulse Ox O2 Delivery O2 Flow Rate FiO2 03/04/17 08:00 98.8 98 119/80 98 03/04/17 08:00 98 03/04/17 06:00 97 03/04/17 04:00 98.5 100 18 114/69 100 03/04/17 04:00 75 03/04/17 02:00 95 03/04/17 00:00 98.4 92 18 121/71 100 03/04/17 00:00 89 03/03/17 22:00 91 03/03/17 20:00 98.3 104 20 146/85 96 03/03/17 20:00 104 03/03/17 19:50 100 03/03/17 18:30 101 18 144/86 98 03/03/17 17:58 98 19 169/93 99 03/03/17 17:03 71 18 202/102 98 03/03/17 16:19 72 18 211/117 98 03/03/17 13:40 77 18 159/102 98 Room Air 03/03/17 13:31 91 16 184/109 99 Room Air 03/03/17 11:41 97.0 84 16 174/103 97 Room Air 03/03/17 11:41 97.0 91 16 174/103 97 Room Air 03/03/17 11:31 95 18 97 Room Air 03/03/17 11:23 97.0 90 20 224/104 99 Physical Exam GENERAL: This is a well-nourished, well-developed patient, in no apparent distress. SKIN: No rashes, ecchymoses or lesions. Cool and dry. HEAD: Atraumatic. Normocephalic. No temporal or scalp tenderness. EYES: Pupils equal round and reactive. Extraocular motions intact. No scleral icterus. No injection or drainage. ENT: Nose without bleeding, purulent drainage or septal hematoma. Throat without erythema, tonsillar hypertrophy or exudate. Uvula midline. Airway patent. NECK: Trachea midline. No JVD or lymphadenopathy. Supple, nontender, no meningeal signs. GASTROINTESTINAL: Abdomen soft, non-tender, nondistended. No hepato-splenomegaly , or palpable masses. No guarding. GENITOURINARY: Bladder not distended. Buchanan catheter in place draining yellow urine. No CVA tenderness MUSCULOSKELETAL: Extremities without clubbing, cyanosis, or edema. No joint tenderness, effusion, or edema noted. No calf tenderness. Negative Homans sign bilaterally. NEUROLOGICAL: Awake and alert. Cranial nerves II through XII intact. Motor and sensory grossly within normal limits. Five out of 5 muscle strength in all muscle groups. Normal speech. Lab results reviewed: Yes Laboratory Tests Test 7/03/03/17 03/03/17 03/03/17 11:35 11:40 16:30 20:22 Urine Color LIGHT-YELLOW Urine Turbidity HAZY Urine pH 6.5 Urine Specific [place] 1.013 Urine Protein TRACE Urine Glucose (UA) NEG Urine Ketones NEG Urine Occult Blood SMALL Urine Nitrite NEG Urine Bilirubin NEG Urine Urobilinogen LESS THAN 2.0 Urine Leukocyte Esterase MOD Urine RBC 3 Urine WBC 37 Urine Bacteria MANY Urine Mucus FEW Microscopic Urinalysis Comment CULTURE INDICATED White Blood Count 9.6 Red Blood Count 4.64 Hemoglobin 14.2 Hematocrit 43.5 Mean Corpuscular Volume 93.8 Mean Corpuscular Hemoglobin 30.7 Mean Corpuscular Hemoglobin 32.7 Concent Red Cell Distribution Width 13.4 Platelet Count 233 Mean Platelet Volume 7.5 Neutrophils (%) (Auto) 89.4 Lymphocytes (%) (Auto) 7.2 Monocytes (%) (Auto) 2.7 Eosinophils (%) (Auto) 0.1 Basophils (%) (Auto) 0.6 Neutrophils # (Auto) 8.6 Lymphocytes # (Auto) 0.7 Monocytes # (Auto) 0.3 Eosinophils # (Auto) 0.0 Basophils # (Auto) 0.1 CBC Comment DIFF FINAL Differential Comment Prothrombin Time 12.7 Prothromb Time International 1.1 Ratio Activated Partial 26.8 Thromboplast Time Sodium Level 140 Potassium Level 2.4 Chloride Level 100 Carbon Dioxide Level 26.9 Anion Gap 13 Blood Urea Nitrogen 14 Creatinine 1.41 Estimat Glomerular Filtration 59 Rate Random Glucose 174 Lactic Acid Level 2.7 3.6 2.7 Calcium Level 7.9 Magnesium Level 0.3 Total Bilirubin 0.9 Aspartate Amino Transf 37 (AST/SGOT) Alanine Aminotransferase 26 (ALT/SGPT) Alkaline Phosphatase 95 Total Creatine Kinase 246 441 Creatine Kinase MB 3.4 8.4 Troponin I 0.41 0.40 Total Protein 8.6 Albumin 3.6 Urine Opiates Screen NEG Urine Barbiturates Screen NEG Urine Amphetamines Screen NEG Urine Benzodiazepines Screen NEG Urine Cocaine Screen POS Urine Cannabinoids Screen NEG Ethyl Alcohol Level LESS THAN 3 Creatine Kinase MB % 1.9 Test 03/04/17 04:02 Sodium Level 140 Potassium Level 2.4 Chloride Level 99 Carbon Dioxide Level 29.6 Anion Gap 11 Blood Urea Nitrogen 12 Creatinine 1.11 Estimat Glomerular Filtration 78 Rate Random Glucose 87 Calcium Level 7.5 Total Creatine Kinase 617 Creatine Kinase MB 9.9 Creatine Kinase MB % 1.6 Troponin I 0.35 Date/Time Procedure Status Source Growth 03/03/17 11:40 Aerobic Blood Culture Received Blood Peripheral Pending 03/03/17 11:40 Anaerobic Blood Culture Received Blood Peripheral Pending 03/03/17 11:35 Urine Culture Received Urine Random Urine Pending Result Diagram: 03/03/17 1140 03/04/17 0402 Personally reviewed images: Yes Imaging Last Impressions Chest X-Ray 03/03/17 1141 Signed Impressions: Service Date/Time: Friday, March 03, 2017 11:49 - CONCLUSION: No acute disease. Soto Moore MD FACR Assessment and Plan Assessment and Plan Urologic impression: #1 urinary retention most likely secondary to an obstructing prostate however other etiologies will need to be ruled out #2 urinary tract infection related to urinary retention Recommendations: #1 continue with Buchanan catheter to gravity drainage #2 agree with present antibiotic therapy #3 office follow up sometime after hospital discharge to proceed with a full urologic workup to include cystoscopic evaluation. Problem Qualifiers (1) UTI (urinary tract infection): Qualified Code: N30.00 - Acute cystitis without hematuria Claudio Augustin MD Mar 04, 2017 10:18
[2017-03-04] MEDS: ASPIRIN EC 81 MG TABEC PO SCH (11:30)
[2017-03-04] MEDS: MAGNESIUM SULFATE 1 GM PREMIX 100 ML IV SCH ×2 (11:31→13:07)
--- NOTE | 2017-03-04 19:11 | EKG ---
Date Performed: 03/03/2017 Time Performed: 12:29:17 PTAGE: 77 years EKG: Sinus rhythm NONSPECIFIC T-WAVE CHANGES ANTERIORLY ABNORMAL ECG Compared to PREVIOUS TRACING , the T-wave changes are new. PREVIOUS TRACIN10/02/2005 16.15 DOCTOR: Gallito Malloy Interpretating Date/Time 03/04/2017 19:10:06
--- NOTE | 2017-03-04 19:12 | EKG ---
Date Performed: 03/03/2017 Time Performed: 17:41:07 PTAGE: 77 years EKG: Sinus rhythm NONSPECFIC T-WAVE CHANGES ANTERIORLY V1-V3 ABNORMAL ECG Since PREVIOUS TRACING , no significant change noted PREVIOUS TRACIN03/03/2017 12.29 DOCTOR: Gallito Malloy Interpretating Date/Time 03/04/2017 19:10:38
[2017-03-05] VITALS (21 sets, daily range): BP systolic 122–195; BP diastolic 70–108; PULSE 79–126; RESP 10–96; TEMP 97.5–98.7; O2SAT 93–99
[2017-03-05] MEDS: HEPARIN SODIUM - SQ 10,000 UNITS/ML VIAL SQ SCH ×2 (02:25→16:13)
[2017-03-05] MEDS: SODIUM CHLOR 0.9% 1000 ML INJ 1,000 ML IV SCH (02:25)
[2017-03-05] MEDS: amLODIPine BESYLATE 5 MG TAB PO SCH (08:12)
[2017-03-05] MEDS: SODIUM CHLORIDE 0.9% FLUSH 10 ML FLUSH IV FLUSH SCH ×2 (08:12→19:47)
[2017-03-05] MEDS: ASPIRIN EC 81 MG TABEC PO SCH (08:12)
[2017-03-05] MEDS: DOCUSATE SODIUM 50 MG/SENNA 8.6 MG TAB PO SCH ×2 (08:22→19:48)
--- NOTE | 2017-03-05 08:46 | HHI.PR ---
Subjective Remarks Follow up syncope, hypokalemia. Patient has no complaints at this time. Denies chest pain, dyspnea. Does have some nausea, but no vomiting. Objective Vitals Vital Signs Date Time Temp Pulse Resp B/P Pulse Ox O2 Delivery O2 Flow Rate FiO2 03/05/17 06:00 103 03/05/17 04:00 98.7 90 29 94 03/05/17 04:00 90 03/05/17 03:00 87 20 164/85 99 03/05/17 02:00 83 17 149/82 95 03/05/17 02:00 83 03/05/17 01:48 88 20 147/81 97 03/05/17 01:00 80 23 97 03/05/17 00:00 90 03/05/17 00:00 98.5 96 03/04/17 23:00 90 18 121/71 97 03/04/17 22:00 96 20 127/70 98 03/04/17 22:00 96 03/04/17 21:01 98 24 123/64 96 03/04/17 21:00 96 21 03/04/17 21:00 102 23 98 03/04/17 20:00 98.3 98 21 124/65 03/04/17 20:00 98 03/04/17 19:00 95 125/77 99 03/04/17 18:00 100 03/04/17 18:00 100 117/71 100 03/04/17 17:00 104 98/53 95 03/04/17 16:01 98.5 99 17 116/66 99 03/04/17 16:00 99 03/04/17 14:00 81 03/04/17 12:00 98.6 94 21 123/77 97 03/04/17 12:00 94 03/04/17 10:00 99 I/O 03/04/17 03/04/17 03/04/17 03/05/17 03/05/17 03/05/17 07:00 15:00 23:00 07:00 15:00 23:00 Intake Total 239 ml 1438 ml 950 ml 734 ml Output Total 200 ml 275 ml 165 ml 525 ml Balance 39 ml 1163 ml 785 ml 209 ml Intake Oral 150 ml 240 ml IV Total 239 ml 1288 ml 710 ml 734 ml Output Urine Total 200 ml 275 ml 165 ml 525 ml # Bowel Movements 1 Result Diagram: 03/03/17 1140 03/04/17 1837 Imaging Last Impressions Chest X-Ray 03/03/17 1141 Signed Impressions: Service Date/Time: Friday, March 03, 2017 11:49 - CONCLUSION: No acute disease. Soto Moore MD FACR Objective Remarks General: Thin elderly male in no acute distress. Heart: Regular rate and rhythm. No murmur. Lungs: Clear to auscultation bilaterally. No wheezes, rales, or rhonchi. Breathing is nonlabored. Abdomen: Soft, nontender, nondistended. Extremities: No lower extremity edema. SCDs. Psych: Alert and oriented. Procedures None Urinary Catheter: Yes Assessment to: Continue Buchanan insert reason: Obstruction/Retention Vascular Central Line Catheter: No A/P Problem List: (1) UTI (urinary tract infection) ICD Code: N39.0 Status: Acute (2) Elevated lactic acid level ICD Code: R79.89 Status: Acute (3) Acute urinary retention ICD Code: R33.8 Status: Acute (4) Elevated troponin ICD Code: R74.8 Status: Acute (5) Hypokalemia ICD Code: E87.6 Status: Acute (6) Acute kidney injury ICD Code: N17.9 Status: Acute (7) Hypertension ICD Code: I10 Status: Acute (8) Syncope ICD Code: R55 Status: Acute (9) Hypomagnesemia ICD Code: E83.42 Status: Acute Assessment and Plan 1. Urinary retention: Buchanan catheter placed and 1000 mL of urine was drained. Appreciate urology recommendations. Continue Buchanan catheter. 2. Acute kidney injury: Possibly obstructive uropathy versus prerenal secondary to dehydration. Creatinine has improved. Labs are pending today. 3. Syncopal episode: Likely vasovagal. Patient was trying to urinate and unable to do so at the time of the syncopal episode. Echocardiogram report noted. Ejection fraction 55-65%. Monitor on telemetry. She cardiology recommendations. 4. Elevated troponin: Troponin remained mildly elevated on serial enzymes. Will check SPECT nuclear scan per cardiology recommendations. 5. UTI: Urine culture positive for Enterobacter. Switch to Bactrim. 6. Hypokalemia: Potassium still low. Labs are pending this morning. 7. Lactic acidosis: Follow serum lactic acid level. 8. Hypertension: Patient states that he is on a medication for blood pressure, but he does not know what it is. Clonidine as needed. Continue amlodipine. 9. Hypomagnesemia: Supplement magnesium and monitor labs. Labs are pending this morning. 10. DVT prophylaxis: Heparin. 11. Substance abuse: Urine drug screen positive for cocaine. Patient states that he formerly used crack cocaine, but stopped a year ago. Discharge Planning Possible transfer to medical/surgical floor later today once labs are available. Problem Qualifiers (1) UTI (urinary tract infection): Qualified Code: N30.00 - Acute cystitis without hematuria Adtiya Pitts MD Mar 05, 2017 08:46
[2017-03-05] MEDS ORDERED: TEMAZEPAM 7.5 MG CAP PO PRN (09:00)
[2017-03-05] MEDS: SULFAMETHOXAZOLE-TRIMETHOPRIM DS 800-160 MG TAB PO SCH ×2 (09:37→19:47)
[2017-03-05 11:53] LABS: BICARBONATE 28.4 MEQ/L (21.0-32.0); MAGNESIUM 0.9 MG/DL (1.5-2.5)
[2017-03-05 12:12] LABS: CALCIUM-PROTEIN CORRECTED 7.1 MG/DL (8.5-10.1)
[2017-03-05] MEDS ORDERED: CALCIUM GLUCONATE INJ 1 GM in SODIUM CHLORIDE 0.9% INJ 100 ML IV ONE (12:30)
[2017-03-05] MEDS: POTASSIUM CHLOR 20 MEQ PREMIX 100 ML IV PRN ×4 (12:33→18:56)
[2017-03-05] MEDS: cloNIDine HCL 0.1 MG TAB PO PRN (21:05)
[2017-03-05] MEDS ORDERED: LORazepam 2 MG/ML VIAL IV PUSH PRN (22:00)
[2017-03-05] MEDS ORDERED: LORazepam 2 MG/ML VIAL IV PUSH ONE (22:00)
[2017-03-05] MEDS ORDERED: HALOPERIDOL LACTATE 5 MG/ML AMP IM ONE (23:15)
[2017-03-06] VITALS (14 sets, daily range): BP systolic 125–151; BP diastolic 70–87; PULSE 76–115; RESP 16–19; TEMP 97.2–98.3; O2SAT 96–100
[2017-03-06] MEDS: HEPARIN SODIUM - SQ 10,000 UNITS/ML VIAL SQ SCH ×2 (06:21→14:04)
[2017-03-06] MEDS: DOCUSATE SODIUM 50 MG/SENNA 8.6 MG TAB PO SCH ×2 (09:00→21:27)
[2017-03-06] MEDS: ASPIRIN EC 81 MG TABEC PO SCH (09:12)
[2017-03-06] MEDS: SULFAMETHOXAZOLE-TRIMETHOPRIM DS 800-160 MG TAB PO SCH ×2 (09:12→21:27)
[2017-03-06] MEDS: amLODIPine BESYLATE 5 MG TAB PO SCH (09:12)
[2017-03-06] MEDS: SODIUM CHLORIDE 0.9% FLUSH 10 ML FLUSH IV FLUSH SCH ×2 (09:12→21:28)
[2017-03-06 10:24] LABS: BICARBONATE 26.8 MEQ/L (21.0-32.0); MAGNESIUM 1.9 MG/DL (1.5-2.5); POTASSIUM 3.9 MEQ/L (3.5-5.1)
--- NOTE | 2017-03-06 11:17 | HHI.PR ---
Subjective Remarks Written by Nilsa Taylor PA-C acting as scribe for Dr. Pitts on 03/06/17 at 11:13. Follow up on patient with syncope and electrolyte abnormalities. Patient seen and examined today. Patient reports feeling well. Denies any chest pain or SOB. Discussed with nursing staff, patient confused, repeatedly getting out of bed. Given dose of Haldol and placed in restraints. Objective Vitals Vital Signs Date Time Temp Pulse Resp B/P Pulse Ox O2 Delivery O2 Flow Rate FiO2 03/06/17 07:59 100 03/06/17 06:00 80 03/06/17 06:00 80 16 125/81 98 03/06/17 05:00 81 16 138/87 97 03/06/17 04:00 97.8 84 17 147/80 96 03/06/17 04:00 84 03/06/17 03:00 82 17 134/80 96 03/06/17 02:00 85 03/06/17 02:00 85 17 145/86 98 03/06/17 01:00 86 18 144/72 97 03/06/17 00:00 98.0 91 19 140/70 96 03/06/17 00:00 91 03/05/17 23:00 108 10 157/86 95 03/05/17 22:00 126 03/05/17 22:00 126 29 165/108 96 03/05/17 21:00 109 19 177/91 93 03/05/17 20:00 108 03/05/17 20:00 97.5 108 22 163/91 98 03/05/17 19:56 112 24 172/103 98 03/05/17 19:00 106 22 195/93 94 03/05/17 18:21 104 20 167/92 95 03/05/17 18:00 99 96 98 03/05/17 18:00 99 03/05/17 17:00 94 18 140/70 98 03/05/17 16:00 98.3 91 18 154/88 98 03/05/17 16:00 91 03/05/17 14:00 92 03/05/17 12:00 104 03/05/17 12:00 98.0 104 26 122/74 93 I/O 03/05/17 03/05/17 03/05/17 03/06/17 03/06/17 03/06/17 07:00 15:00 23:00 07:00 15:00 23:00 Intake Total 734 ml 1689 ml 215 ml Output Total 525 ml 3380 ml 850 ml Balance 209 ml -1691 ml -635 ml Intake Oral 480 ml IV Total 734 ml 1209 ml 215 ml Output Urine Total 525 ml 3380 ml 850 ml # Bowel Movements 1 Result Diagram: 03/03/17 1140 03/06/17 0910 Imaging Last Impressions Chest X-Ray 03/03/17 1141 Signed Impressions: Service Date/Time: Friday, March 03, 2017 11:49 - CONCLUSION: No acute disease. Soto Moore MD FACR Objective Remarks GENERAL: Well-nourished, well-developed elderly patient in NAD. In soft restraints. Awake and alert. SKIN: Warm and dry. No rash. HEAD: Normocephalic. Atraumatic. EYES: Pupils equal and round. No scleral icterus. No injection or drainage. ENT: No nasal bleeding or discharge. Mucous membranes pink and moist. NECK: Supple. Trachea midline. CARDIOVASCULAR: Regular rate and rhythm. S1, S2 noted. No murmur appreciated. RESPIRATORY: No accessory muscle use. Clear to auscultation. Breath sounds equal bilaterally. GASTROINTESTINAL: Abdomen soft, non-tender, nondistended. Normoactive bowel sounds x4. MUSCULOSKELETAL: No obvious deformities. Extremities without clubbing, cyanosis , or edema. NEUROLOGICAL: Awake and alert. Able to move all extremities. Normal speech. PSYCHIATRIC: Appropriate mood and affect; insight and judgment normal. Procedures None Medications and IVs Current Medications Medications (Trade) Dose Ordered Sig/Arabella Route Start Time Stop Time Status Last Admin (NS Flush) 2 ml UNSCH PRN IV FLUSH 03/03/17 14:00 (NS Flush) 2 ml BID IV FLUSH 03/03/17 21:00 03/06/17 09:12 (Tylenol) 650 mg Q4H PRN PO 03/03/17 14:00 (Zofran Inj) 4 mg Q6H PRN IVP 03/03/17 14:00 03/03/17 21:26 (Heparin Inj) 5,000 units Q12H SQ 03/03/17 15:00 03/06/17 06:21 (Narcan Inj) 0.4 mg UNSCH PRN IV 03/03/17 14:00 (Juliet-Colace) 1 tab BID PO 03/03/17 21:00 03/04/17 07:53 (Milk Of Magnesia Liq) 30 ml Q12H PRN PO 03/03/17 14:00 (Senokot) 17.2 mg Q12H PRN PO 03/03/17 14:00 (Dulcolax Supp) 10 mg DAILY PRN RECTAL 03/03/17 14:00 (Lactulose Liq) 30 ml DAILY PRN PO 03/03/17 14:00 (Catapres) 0.1 mg Q6H PRN PO 03/03/17 14:15 03/05/17 21:05 (Norvasc) 5 mg DAILY PO 03/03/17 14:15 03/06/17 09:12 (Ecotrin Ec) 81 mg DAILY PO 03/04/17 11:00 03/06/17 09:12 (Bactrim Ds 800-160 Mg) 1 tab Q12HR PO 03/05/17 09:00 03/06/17 09:12 (Restoril) 7.5 mg HS PRN PO 03/05/17 09:00 A/P Problem List: (1) UTI (urinary tract infection) ICD Code: N39.0 Status: Acute (2) Elevated lactic acid level ICD Code: R79.89 Status: Acute (3) Acute urinary retention ICD Code: R33.8 Status: Acute (4) Elevated troponin ICD Code: R74.8 Status: Acute (5) Hypokalemia ICD Code: E87.6 Status: Acute (6) Acute kidney injury ICD Code: N17.9 Status: Acute (7) Hypertension ICD Code: I10 Status: Acute (8) Syncope ICD Code: R55 Status: Acute (9) Hypomagnesemia ICD Code: E83.42 Status: Acute Assessment and Plan 1. Urinary retention: Buchanan catheter placed and 1000 mL of urine was drained. Appreciate urology recommendations. Continue Buchanan catheter. 2. Acute kidney injury: Possibly obstructive uropathy versus prerenal secondary to dehydration. Creatinine continues to trend down. 3. Syncopal episode: Likely vasovagal. Patient was trying to urinate and unable to do so at the time of the syncopal episode. Echocardiogram report noted. Ejection fraction 55-65%. Monitor on telemetry. Appreciate cardiology recommendations. 4. Elevated troponin: Troponin remained mildly elevated on serial enzymes. Will check SPECT nuclear scan per cardiology recommendations. 5. UTI: Urine culture positive for Enterobacter. Continue Bactrim. 6. Hypokalemia: Resolved. Continue to monitor, am labs ordered. Transfer to med /surg floor. 7. Lactic acidosis: Follow serum lactic acid level. 8. Hypertension: Patient states that he is on a medication for blood pressure, but he does not know what it is. Clonidine as needed. Continue amlodipine. 9. Hypomagnesemia: Resolved. Continue to supplement magnesium and monitor labs. 10. DVT prophylaxis: Heparin. 11. Substance abuse: Urine drug screen positive for cocaine. Patient states that he formerly used crack cocaine, but stopped a year ago. This note was transcribed by daniel Taylor PA-C. I, Dr. Aditya Pitts personally performed the history, physical exam, and medical decision making; and confirmed the accuracy of the information in the transcribed note. Authenticated by Dr. Aditya Pitts on 03/06/17 at 13:58. Discharge Planning Transfer to medical/surgical for today. Problem Qualifiers (1) UTI (urinary tract infection): Qualified Code: N30.00 - Acute cystitis without hematuria Nilsa Taylor Mar 06, 2017 11:17 Aditya Pitts MD Mar 06, 2017 13:59
[2017-03-07] VITALS: BP 140/85; PULSE 114; RESP 18; TEMP 98.5; O2SAT 98
[2017-03-07] MEDS: HEPARIN SODIUM - SQ 10,000 UNITS/ML VIAL SQ SCH ×2 (02:33→15:32)
[2017-03-07 04:00] VITALS: BP 135/84; PULSE 107; RESP 16; TEMP 98.2; O2SAT 96
[2017-03-07 06:06] LABS: BICARBONATE 26.4 MEQ/L (21.0-32.0); MAGNESIUM 1.6 MG/DL (1.5-2.5); POTASSIUM 3.7 MEQ/L (3.5-5.1)
[2017-03-07 08:00] VITALS: BP 118/72; PULSE 102; PULSE 108; RESP 19; TEMP 97.7; O2SAT 96
[2017-03-07] MEDS: SODIUM CHLORIDE 0.9% FLUSH 10 ML FLUSH IV FLUSH SCH ×2 (08:20→20:35)
[2017-03-07] MEDS: ASPIRIN EC 81 MG TABEC PO SCH (08:21)
[2017-03-07] MEDS: SULFAMETHOXAZOLE-TRIMETHOPRIM DS 800-160 MG TAB PO SCH ×2 (08:21→20:35)
[2017-03-07] MEDS: DOCUSATE SODIUM 50 MG/SENNA 8.6 MG TAB PO SCH ×2 (08:21→20:35)
[2017-03-07] MEDS: NS + KCL 20 MEQ INJ 1,000 ML IV SCH (08:21)
[2017-03-07] MEDS: amLODIPine BESYLATE 5 MG TAB PO SCH (08:21)
[2017-03-07 12:00] VITALS: BP 133/74; PULSE 98; RESP 16; TEMP 97.8; O2SAT 99
--- NOTE | 2017-03-07 15:22 | HHI.PR ---
Subjective Remarks Follow-up syncope, electrode abnormalities. Patient reporting heartburn. States that he takes omeprazole at home. Requesting Tums. No chest pain or dyspnea. Otherwise no complaints at this time. Objective Vitals Vital Signs Date Time Temp Pulse Resp B/P Pulse Ox O2 Delivery O2 Flow Rate FiO2 03/07/17 12:00 97.8 98 16 133/74 99 03/07/17 08:00 97.7 102 19 118/72 96 03/07/17 04:00 98.2 107 16 135/84 96 03/07/17 00:00 98.5 114 18 140/85 98 03/06/17 20:00 98.0 115 16 146/82 98 03/06/17 15:30 97.2 99 17 138/81 99 I/O 03/06/17 03/06/17 03/06/17 03/07/17 03/07/17 03/07/17 07:00 15:00 23:00 07:00 15:00 23:00 Intake Total 215 ml 280 ml 360 ml Output Total 850 ml 400 ml 250 ml 550 ml Balance -635 ml -120 ml -250 ml -190 ml Intake Oral 240 ml 360 ml IV Total 215 ml 40 ml Output Urine Total 850 ml 400 ml 250 ml 550 ml # Voids 0 # Bowel Movements 1 Result Diagram: 03/03/17 1140 03/07/17 0500 Imaging Last Impressions Chest X-Ray 03/03/17 1141 Signed Impressions: Service Date/Time: Friday, March 03, 2017 11:49 - CONCLUSION: No acute disease. Soto Moore MD FACR Objective Remarks General: Thin elderly male in no acute distress. Heart: Regular rate and rhythm. No murmur. Lungs: Clear to auscultation bilaterally. No wheezes, rales, or rhonchi. Breathing is nonlabored. Abdomen: Soft, nontender, nondistended. Extremities: No lower extremity edema. Psych: Alert and oriented. Procedures None Urinary Catheter: No Vascular Central Line Catheter: No A/P Problem List: (1) UTI (urinary tract infection) ICD Code: N39.0 Status: Acute (2) Elevated lactic acid level ICD Code: R79.89 Status: Acute (3) Acute urinary retention ICD Code: R33.8 Status: Acute (4) Elevated troponin ICD Code: R74.8 Status: Acute (5) Hypokalemia ICD Code: E87.6 Status: Acute (6) Acute kidney injury ICD Code: N17.9 Status: Acute (7) Hypertension ICD Code: I10 Status: Acute (8) Syncope ICD Code: R55 Status: Acute (9) Hypomagnesemia ICD Code: E83.42 Status: Acute Assessment and Plan 1. Urinary retention: Buchanan catheter placed and 1000 mL of urine was drained. Appreciate urology recommendations. Continue Buchanan catheter. 2. Acute kidney injury: Possibly obstructive uropathy versus prerenal secondary to dehydration. Creatinine increased slightly today. 3. Syncopal episode: Likely vasovagal. Patient was trying to urinate and unable to do so at the time of the syncopal episode. Echocardiogram report noted. Ejection fraction 55-65%. Monitor on telemetry. Appreciate cardiology recommendations. 4. Elevated troponin: Troponin remained mildly elevated on serial enzymes. Will check SPECT nuclear scan per cardiology recommendations. 5. UTI: Urine culture positive for Enterobacter. Continue Bactrim. 6. Hypokalemia: Resolved. Continue to monitor, am labs ordered. Transfer to med /surg floor. 7. Lactic acidosis: Follow serum lactic acid level. 8. Hypertension: Patient states that he is on a medication for blood pressure, but he does not know what it is. Clonidine as needed. Continue amlodipine. 9. Hypomagnesemia: Resolved. Continue to supplement magnesium and monitor labs. 10. DVT prophylaxis: Heparin. 11. Substance abuse: Urine drug screen positive for cocaine. Patient states that he formerly used crack cocaine, but stopped a year ago. 12. GERD: PPI, TUMS. Discharge Planning Possible discharge to SNF next 1-2 days. Problem Qualifiers (1) UTI (urinary tract infection): Qualified Code: N30.00 - Acute cystitis without hematuria Aditya Pitts MD Mar 07, 2017 15:22
[2017-03-07] MEDS: ONDANSETRON HCL 4 MG/2 ML VIAL IVP PRN (15:31)
[2017-03-07 16:00] VITALS: BP 158/94; PULSE 116; RESP 19; TEMP 98.1; O2SAT 96
[2017-03-07] MEDS: PANTOPRAZOLE SOD 40 MG DELAYED RELEASE TAB PO SCH (16:51)
[2017-03-07] MEDS: MAGNESIUM OXIDE 400 MG TAB PO SCH (16:51)
[2017-03-07] MEDS ORDERED: CALCIUM CARBONATE 500 MG CHEWABLE TAB CHEW PRN (17:00)
[2017-03-07 20:00] VITALS: BP 163/86; PULSE 118; RESP 16; TEMP 99.6; O2SAT 96
[2017-03-08] VITALS: BP 137/79; PULSE 113; RESP 18; TEMP 99.4; O2SAT 100
[2017-03-08] MEDS: HEPARIN SODIUM - SQ 10,000 UNITS/ML VIAL SQ SCH ×2 (03:17→14:53)
[2017-03-08 05:16] LABS: BICARBONATE 27.8 MEQ/L (21.0-32.0); POTASSIUM 3.9 MEQ/L (3.5-5.1)
[2017-03-08] MEDS: NS + KCL 20 MEQ INJ 1,000 ML IV SCH (06:35)
[2017-03-08 08:00] VITALS: BP 134/83; PULSE 95; RESP 18; TEMP 97.7; O2SAT 97
[2017-03-08] MEDS: amLODIPine BESYLATE 5 MG TAB PO SCH (08:29)
[2017-03-08] MEDS: DOCUSATE SODIUM 50 MG/SENNA 8.6 MG TAB PO SCH ×2 (08:29→21:57)
[2017-03-08] MEDS: MAGNESIUM OXIDE 400 MG TAB PO SCH (08:29)
[2017-03-08] MEDS: PANTOPRAZOLE SOD 40 MG DELAYED RELEASE TAB PO SCH (08:29)
[2017-03-08 08:30] VITALS: PULSE 85
[2017-03-08] MEDS: ASPIRIN EC 81 MG TABEC PO SCH (08:33)
[2017-03-08] MEDS: SODIUM CHLORIDE 0.9% FLUSH 10 ML FLUSH IV FLUSH SCH ×2 (09:00→21:59)
[2017-03-08] MEDS ORDERED: REGADENOSON INJ 0.4 MG/5 ML SYR ONE (11:19)
[2017-03-08] MEDS ORDERED: REGADENOSON INJ 0.4 MG/5 ML SYR IV ONE (11:27)
[2017-03-08 12:00] VITALS: BP 142/68; PULSE 89; RESP 18; TEMP 97.4; O2SAT 96
[2017-03-08] MEDS: SULFAMETHOXAZOLE-TRIMETHOPRIM DS 800-160 MG TAB PO SCH ×2 (12:24→21:57)
--- NOTE | 2017-03-08 12:41 | RADRPT ---
EXAM DATE/TIME: 03/08/2017 10:19 [facility] COMPARISON: No previous studies available for comparison. INDICATIONS : Syncopal episode. Abnormal EKG. DOSE: 25.7 mCi Tc99m Myoview at stress. 8.7 mCi Tc99m Myoview at rest. 0.4 mg Lexiscan STRESS SYMPTOMS: None noted. EJECTION FRACTION: 68% MEDICAL HISTORY : Hypertension. SURGICAL HISTORY : None. ENCOUNTER: Initial ACUITY: 1 day PAIN SCALE: 0/10 LOCATION: chest TECHNIQUE: The patient underwent pharmacologic stress with infusion of prescribed dose. Continuous ECG tracing was monitored during stress. Gated SPECT imaging was performed after stress and conventional SPECT i maging was performed at rest. The examination was performed on a SPECT/CT scanner, both attenuation and non-corrected datasets were reviewed. FINDINGS: DISTRIBUTION: The maximum perfused segment at stress is in the anterior lateral wall wall. PERFUSION STUDY: The pattern of perfusion at stress is within normal limits. GATED STUDY: There is intact wall motion and thickening without hypokinetic or dyskinetic segments. CONCLUSION: Negative for stress-induced ischemia. RISK CATEGORY: Low (<1% Annual Mortality Rate) Soto Moore MD FACR on March 08, 2017 at 12:38 Board Certified Radiologist. This report was verified electronically.
[2017-03-08] MEDS ORDERED: ASPI-99 PO (13:53)
[2017-03-08] MEDS ORDERED: SULF1TAB23 PO (13:53)
[2017-03-08] MEDS ORDERED: AMLO5 PO (13:53)
[2017-03-08] MEDS ORDERED: PANT40TA3 PO (13:53)
[2017-03-08] MEDS ORDERED: MAGN400T3 PO (13:53)
--- NOTE | 2017-03-08 13:53 | HHI.DCPOC ---
Discharge Care Plan Diagnosis: (1) Dehydration (2) Hypokalemia (3) Syncope (4) UTI (urinary tract infection) (5) Hypertension (6) Elevated troponin (7) Acute kidney injury (8) Acute urinary retention (9) Elevated lactic acid level (10) Hypomagnesemia Goals to Promote Your Health * To prevent worsening of your condition and complications * To maintain your health at the optimal level Directions to Meet Your Goals Take your medications as prescribed Follow your dietary instruction Follow activity as directed Keep your appointments as scheduled Take your immunizations and boosters as scheduled If your symptoms worsen call your PCP, if no PCP go to Urgent Care Center or Emergency Room Smoking is Dangerous to Your Health. Avoid second hand smoke Call the 24-hour hour crisis hotline for domestic abuse at Aditya Pitts MD Mar 08, 2017 13:53
--- NOTE | 2017-03-08 14:41 | HHI.PR ---
Subjective Remarks Follow up syncope, electrolyte abnormalities, hypertension, elevated troponin. The patient states that he feels good today. Denies chest pain or dyspnea. No nausea or vomiting. Just returned from nuclear stress test. Objective Vitals Vital Signs Date Time Temp Pulse Resp B/P Pulse Ox O2 Delivery O2 Flow Rate FiO2 03/08/17 12:00 97.4 89 18 142/68 96 03/08/17 08:30 85 03/08/17 08:00 97.7 95 18 134/83 97 03/08/17 00:00 99.4 113 18 137/79 100 03/07/17 20:00 99.6 118 16 163/86 96 03/07/17 16:00 98.1 116 19 158/94 96 I/O 03/07/17 03/07/17 03/07/17 03/08/17 03/08/17 03/08/17 07:00 15:00 23:00 07:00 15:00 23:00 Intake Total 360 ml 587 ml 378 ml Output Total 550 ml 375 ml 325 ml Balance -190 ml 212 ml 53 ml Intake Oral 360 ml IV Total 587 ml 378 ml Output Urine Total 550 ml 375 ml 325 ml # Voids 0 # Bowel Movements 1 Result Diagram: 03/03/17 1140 03/08/17 0408 Imaging Last Impressions Myocardial Perfusion Scan Nuc Med 03/08/17 0000 Signed Impressions: Service Date/Time: Wednesday, March 08, 2017 10:19 - CONCLUSION: Negative for stress-induced ischemia. RISK CATEGORY: Low (<1%% Annual Mortality Rate) Soto Moore MD FACR Chest X-Ray 03/03/17 1141 Signed Impressions: Service Date/Time: Friday, March 03, 2017 11:49 - CONCLUSION: No acute disease. Soto Moore MD FACR Objective Remarks General: Thin elderly male in no acute distress. Sitting up in a chair. Heart: Regular rate and rhythm. No murmur. Lungs: Clear to auscultation bilaterally. No wheezes, rales, or rhonchi. Breathing is nonlabored. Abdomen: Soft, nontender, nondistended. Extremities: No lower extremity edema. Psych: Alert and oriented. Procedures None Urinary Catheter: No Vascular Central Line Catheter: No A/P Problem List: (1) UTI (urinary tract infection) ICD Code: N39.0 Status: Acute (2) Elevated lactic acid level ICD Code: R79.89 Status: Acute (3) Acute urinary retention ICD Code: R33.8 Status: Acute (4) Elevated troponin ICD Code: R74.8 Status: Acute (5) Hypokalemia ICD Code: E87.6 Status: Acute (6) Acute kidney injury ICD Code: N17.9 Status: Acute (7) Hypertension ICD Code: I10 Status: Acute (8) Syncope ICD Code: R55 Status: Acute (9) Hypomagnesemia ICD Code: E83.42 Status: Acute Assessment and Plan 1. Urinary retention: Buchanan catheter placed and 1000 mL of urine was drained. Appreciate urology recommendations. Continue Buchanan catheter. Follow-up as outpatient with urology. 2. Acute kidney injury: Possibly obstructive uropathy versus prerenal secondary to dehydration. Continue IV fluids. 3. Syncopal episode: Likely vasovagal. Patient was trying to urinate and unable to do so at the time of the syncopal episode. Echocardiogram report noted. Ejection fraction 55-65%. Monitor on telemetry. Appreciate cardiology recommendations. 4. Elevated troponin: Troponin remained mildly elevated on serial enzymes. Cardiac nuclear stress test is negative. 5. UTI: Urine culture positive for Enterobacter. Continue Bactrim. 6. Hypokalemia: Resolved. 7. Lactic acidosis 8. Hypertension: Patient states that he has been on a medication for blood pressure, but he does not know what it is. Clonidine as needed. Continue amlodipine. 9. Hypomagnesemia: Resolved. Continue to supplement magnesium and monitor labs. 10. DVT prophylaxis: Heparin. 11. Substance abuse: Urine drug screen positive for cocaine. Patient states that he formerly used crack cocaine, but stopped a year ago. He was counseled. 12. GERD: PPI, TUMS. Discharge Planning Discharge to SNF when arrangements can be made. Discussed with case management, who is pursuing insurance authorization. Problem Qualifiers (1) UTI (urinary tract infection): Qualified Code: N30.00 - Acute cystitis without hematuria Aditya Pitts MD Mar 08, 2017 14:41
[2017-03-08 16:00] VITALS: BP 139/76; PULSE 98; RESP 18; TEMP 97.7; O2SAT 100
[2017-03-08 20:00] VITALS: BP 125/64; PULSE 100; PULSE 93; RESP 18; TEMP 97.6; O2SAT 98
[2017-03-09] VITALS (7 sets, daily range): BP systolic 117–138; BP diastolic 63–81; PULSE 86–107; RESP 18–20; TEMP 97.1–98.3; O2SAT 96–100
[2017-03-09] MEDS: HEPARIN SODIUM - SQ 10,000 UNITS/ML VIAL SQ SCH ×2 (03:52→16:58)
[2017-03-09] MEDS: SODIUM CHLORIDE 0.9% FLUSH 10 ML FLUSH IV FLUSH SCH ×2 (09:00→16:58)
--- NOTE | 2017-03-09 09:04 | HHI.PR ---
Subjective Remarks Follow up syncope, electrolyte abnormalities, hypertension, elevated troponin. The patient has no complaints at this time other than feeling weak. Denies chest pain, dyspnea, nausea, vomiting. Objective Vitals Vital Signs Date Time Temp Pulse Resp B/P Pulse Ox O2 Delivery O2 Flow Rate FiO2 03/09/17 08:00 97.1 90 18 130/79 96 03/09/17 04:00 97.6 91 18 137/71 96 03/09/17 00:00 97.5 86 18 138/81 99 03/08/17 20:00 100 03/08/17 20:00 97.6 93 18 125/64 98 03/08/17 16:00 97.7 98 18 139/76 100 03/08/17 12:00 97.4 89 18 142/68 96 I/O 03/08/17 03/08/17 03/08/17 03/09/17 03/09/17 03/09/17 07:00 15:00 23:00 07:00 15:00 23:00 Intake Total 378 ml 350 ml 776 ml 487 ml Output Total 325 ml 750 ml 700 ml Balance 53 ml -400 ml 776 ml -213 ml Intake Oral 350 ml 240 ml 120 ml IV Total 378 ml 536 ml 367 ml Output Urine Total 325 ml 750 ml 700 ml # Voids 1 # Bowel Movements 1 Result Diagram: 03/08/17 0408 Imaging Last Impressions Myocardial Perfusion Scan Nuc Med 03/08/17 0000 Signed Impressions: Service Date/Time: Wednesday, March 08, 2017 10:19 - CONCLUSION: Negative for stress-induced ischemia. RISK CATEGORY: Low (<1%% Annual Mortality Rate) Soto Moore MD FACR Chest X-Ray 03/03/17 1141 Signed Impressions: Service Date/Time: Friday, March 03, 2017 11:49 - CONCLUSION: No acute disease. Soto Moore MD FACR Objective Remarks General: Thin elderly male in no acute distress. Heart: Regular rate and rhythm. No murmur. Lungs: Clear to auscultation bilaterally. No wheezes, rales, or rhonchi. Breathing is nonlabored. Abdomen: Soft, nontender, nondistended. Extremities: No lower extremity edema. Psych: Alert and oriented. Procedures None Urinary Catheter: No Vascular Central Line Catheter: No A/P Problem List: (1) Syncope ICD Code: R55 Status: Acute (2) Hypertensive urgency ICD Code: I16.0 Status: Resolved (3) Elevated lactic acid level ICD Code: R79.89 Status: Acute (4) Acute urinary retention ICD Code: R33.8 Status: Acute (5) Elevated troponin ICD Code: R74.8 Status: Acute (6) Hypokalemia ICD Code: E87.6 Status: Acute (7) UTI (urinary tract infection) ICD Code: N39.0 Status: Acute (8) Acute kidney injury ICD Code: N17.9 Status: Acute (9) Hypertension ICD Code: I10 Status: Acute (10) Hypomagnesemia ICD Code: E83.42 Status: Acute Assessment and Plan 1. Urinary retention: Appreciate urology recommendations. Continue Buchanan catheter. Follow-up as outpatient with urology. 2. Acute kidney injury: Possibly obstructive uropathy versus prerenal secondary to dehydration. Continue IV fluids. Monitor BUN and creatinine. 3. Syncopal episode: Likely vasovagal. Patient was trying to urinate and unable to do so at the time of the syncopal episode. Echocardiogram report noted. Ejection fraction 55-65%. Monitor on telemetry. Appreciate cardiology recommendations. 4. Elevated troponin: Troponin remained mildly elevated on serial enzymes. Appreciate cardiology recommendations. Cardiac nuclear stress test is negative. 5. UTI: Urine culture positive for Enterobacter. Continue Bactrim. 6. Hypokalemia: Resolved. 7. Lactic acidosis 8. Hypertensive urgency: Blood pressure is much improved. Had required Cardene drip. Patient states that he has been on a medication for blood pressure, but he does not know what it is. Clonidine as needed. Continue amlodipine. 9. Hypomagnesemia: Resolved. Continue to supplement magnesium and monitor labs. 10. DVT prophylaxis: Heparin. 11. Substance abuse: Urine drug screen positive for cocaine. Patient states that he formerly used crack cocaine, but stopped a year ago. He was counseled. 12. GERD: PPI, TUMS. Discharge Planning Discharge to SNF when arrangements can be made. Discussed with case management, who is pursuing insurance authorization. At this time there is no accepting facility. Patient is not safe for discharge home at this time secondary to generalized weakness. If no facility is available, will continue physical therapy and consider discharge home with home health care once patient is stronger. Problem Qualifiers (1) UTI (urinary tract infection): Qualified Code: N30.00 - Acute cystitis without hematuria Aditya Pitts MD Mar 09, 2017 09:04
[2017-03-09] MEDS: amLODIPine BESYLATE 5 MG TAB PO SCH (09:42)
[2017-03-09] MEDS: SULFAMETHOXAZOLE-TRIMETHOPRIM DS 800-160 MG TAB PO SCH ×2 (09:42→21:08)
[2017-03-09] MEDS: DOCUSATE SODIUM 50 MG/SENNA 8.6 MG TAB PO SCH ×2 (09:42→21:00)
[2017-03-09] MEDS: ASPIRIN EC 81 MG TABEC PO SCH (09:42)
[2017-03-09] MEDS: NS + KCL 20 MEQ INJ 1,000 ML IV SCH (09:43)
[2017-03-09] MEDS: PANTOPRAZOLE SOD 40 MG DELAYED RELEASE TAB PO SCH (09:43)
[2017-03-09] MEDS: MAGNESIUM OXIDE 400 MG TAB PO SCH (11:44)
[2017-03-10] VITALS (8 sets, daily range): BP systolic 113–140; BP diastolic 68–78; PULSE 79–109; RESP 18–19; TEMP 96.9–99.5; O2SAT 95–100
[2017-03-10] MEDS: HEPARIN SODIUM - SQ 10,000 UNITS/ML VIAL SQ SCH ×2 (03:16→18:24)
[2017-03-10] MEDS: NS + KCL 20 MEQ INJ 1,000 ML IV SCH (05:41)
[2017-03-10 06:07] LABS: MAGNESIUM 1.4 MG/DL (1.5-2.5); POTASSIUM 4.4 MEQ/L (3.5-5.1)
[2017-03-10] MEDS: PANTOPRAZOLE SOD 40 MG DELAYED RELEASE TAB PO SCH (09:00)
[2017-03-10] MEDS: SODIUM CHLORIDE 0.9% FLUSH 10 ML FLUSH IV FLUSH SCH ×2 (09:00→22:04)
[2017-03-10] MEDS: ASPIRIN EC 81 MG TABEC PO SCH (10:06)
[2017-03-10] MEDS: MAGNESIUM OXIDE 400 MG TAB PO SCH (10:06)
[2017-03-10] MEDS: amLODIPine BESYLATE 5 MG TAB PO SCH (10:06)
[2017-03-10] MEDS: DOCUSATE SODIUM 50 MG/SENNA 8.6 MG TAB PO SCH ×2 (10:06→22:03)
[2017-03-10] MEDS: SULFAMETHOXAZOLE-TRIMETHOPRIM DS 800-160 MG TAB PO SCH ×2 (10:06→22:03)
--- NOTE | 2017-03-10 13:08 | HHI.PR ---
Subjective Remarks Follow-up for syncope No further evidence of syncope, episodes of lightheadedness. Blood pressure stable. Objective Vitals Vital Signs Date Time Temp Pulse Resp B/P Pulse Ox O2 Delivery O2 Flow Rate FiO2 03/10/17 12:00 96.9 86 19 128/68 95 03/10/17 10:00 79 03/10/17 10:00 79 03/10/17 08:00 97.9 86 19 121/74 100 03/10/17 04:00 97.7 109 18 120/73 98 03/10/17 00:00 97.3 88 18 132/78 98 03/09/17 20:04 96 03/09/17 20:00 97.9 100 18 128/73 100 03/09/17 16:00 98.1 99 20 123/67 97 I/O 03/09/17 03/09/17 03/09/17 03/10/17 03/10/17 03/10/17 06:59 14:59 22:59 06:59 14:59 22:59 Intake Total 487 ml 120 ml 572 ml 602 ml 120 ml Output Total 700 ml 600 ml 550 ml 1225 ml Balance -213 ml -480 ml 22 ml -623 ml 120 ml Intake Oral 120 ml 120 ml 240 ml 240 ml 120 ml IV Total 367 ml 332 ml 362 ml Output Urine Total 700 ml 600 ml 550 ml 1225 ml Result Diagram: 03/10/17 0429 Objective Remarks General: Thin elderly male in no acute distress. Heart: Regular rate and rhythm. No murmur. Lungs: Clear to auscultation bilaterally. No wheezes, rales, or rhonchi. Breathing is nonlabored. Abdomen: Soft, nontender, nondistended. Extremities: No lower extremity edema. Psych: Alert and oriented. Procedures None A/P Problem List: (1) Syncope ICD Code: R55 Status: Acute (2) Hypertensive urgency ICD Code: I16.0 Status: Resolved (3) Elevated lactic acid level ICD Code: R79.89 Status: Acute (4) Acute urinary retention ICD Code: R33.8 Status: Acute (5) Elevated troponin ICD Code: R74.8 Status: Acute (6) Hypokalemia ICD Code: E87.6 Status: Acute (7) UTI (urinary tract infection) ICD Code: N39.0 Status: Acute (8) Acute kidney injury ICD Code: N17.9 Status: Acute (9) Hypertension ICD Code: I10 Status: Acute (10) Hypomagnesemia ICD Code: E83.42 Status: Acute Assessment and Plan 1. Urinary retention: Appreciate urology recommendations. Continue Buchanan catheter. Follow-up as outpatient with urology. 2. Acute kidney injury: Possibly obstructive uropathy versus prerenal secondary to dehydration. Continue IV fluids, increased rate, recheck BMP tomorrow. 3. Syncopal episode: Likely vasovagal. Patient was trying to urinate and unable to do so at the time of the syncopal episode. Echocardiogram report noted. Ejection fraction 55-65%. Monitor on telemetry. Appreciate cardiology recommendations. 4. Elevated troponin: Troponin remained mildly elevated on serial enzymes. Appreciate cardiology recommendations. Cardiac nuclear stress test is negative. 5. UTI: Urine culture positive for Enterobacter. Continue Bactrim. 6. Hypokalemia: Resolved. 7. Lactic acidosis 8. Hypertensive urgency: Blood pressure is much improved. Had required Cardene drip. Patient states that he has been on a medication for blood pressure, but he does not know what it is. Clonidine as needed. Continue amlodipine. 9. Hypomagnesemia: Resolved. Continue to supplement magnesium and monitor labs. 10. DVT prophylaxis: Heparin. 11. Substance abuse: Urine drug screen positive for cocaine. Patient states that he formerly used crack cocaine, but stopped a year ago. He was counseled. 12. GERD: PPI, TUMS. Discharge Planning Discharge to SNF when arrangements can be made and if creatinine is better. Discussed with case management, who is pursuing insurance authorization. At this time there is no accepting facility. Patient is not safe for discharge home at this time secondary to generalized weakness. If no facility is available , will continue physical therapy and consider discharge home with home health care once patient is stronger. Problem Qualifiers (1) UTI (urinary tract infection): Qualified Code: N30.00 - Acute cystitis without hematuria Piotr Laughlin MD Mar 10, 2017 13:08
[2017-03-10 19:39] LABS: BICARBONATE 24.2 MEQ/L (21.0-32.0); POTASSIUM 4.5 MEQ/L (3.5-5.1)
[2017-03-11] VITALS: BP 121/66; PULSE 93; RESP 19; TEMP 97.6; O2SAT 98
[2017-03-11] MEDS: HEPARIN SODIUM - SQ 10,000 UNITS/ML VIAL SQ SCH (03:57)
[2017-03-11] MEDS: NS + KCL 20 MEQ INJ 1,000 ML IV SCH ×2 (03:58→04:03)
[2017-03-11 04:00] VITALS: BP 141/78; PULSE 92; RESP 19; TEMP 97.8; O2SAT 100
[2017-03-11 07:15] LABS: BICARBONATE 24.8 MEQ/L (21.0-32.0); POTASSIUM 5.1 MEQ/L (3.5-5.1)
[2017-03-11 08:00] VITALS: BP 134/78; PULSE 83; RESP 17; TEMP 96.9; O2SAT 100
[2017-03-11] MEDS: SODIUM CHLORIDE 0.9% FLUSH 10 ML FLUSH IV FLUSH SCH (08:47)
[2017-03-11] MEDS: ASPIRIN EC 81 MG TABEC PO SCH (08:47)
[2017-03-11] MEDS: amLODIPine BESYLATE 5 MG TAB PO SCH (08:47)
[2017-03-11] MEDS: MAGNESIUM OXIDE 400 MG TAB PO SCH (08:47)
[2017-03-11] MEDS: SULFAMETHOXAZOLE-TRIMETHOPRIM DS 800-160 MG TAB PO SCH (08:47)
[2017-03-11] MEDS: PANTOPRAZOLE SOD 40 MG DELAYED RELEASE TAB PO SCH (08:47)
[2017-03-11] MEDS: DOCUSATE SODIUM 50 MG/SENNA 8.6 MG TAB PO SCH (08:47)
--- NOTE | 2017-03-11 10:05 | HHI.DS ---
Discharge Summary Admission Date Mar 03, 2017 at 13:17 Discharge Date: Mar 11, 2017 Admitting Diagnosis Urosepsis/Hypokalemia/dehydration/elevated troponin/ (1) Syncope ICD Code: R55 Diagnosis: Principal (2) Hypertensive urgency ICD Code: I16.0 Diagnosis: Principal (3) Elevated lactic acid level ICD Code: R79.89 Diagnosis: Secondary (4) Acute urinary retention ICD Code: R33.8 Diagnosis: Secondary (5) Elevated troponin ICD Code: R74.8 Diagnosis: Secondary (6) Hypokalemia ICD Code: E87.6 Diagnosis: Secondary (7) UTI (urinary tract infection) ICD Code: N39.0 Diagnosis: Secondary (8) Acute kidney injury ICD Code: N17.9 Diagnosis: Principal (9) Hypertension ICD Code: I10 Diagnosis: Secondary (10) Hypomagnesemia ICD Code: E83.42 Diagnosis: Secondary (11) Hypertensive emergency ICD Code: I16.1 Diagnosis: Principal Procedures None Brief History - From Admission Condition to the 77-year-old male who presented to the emergency department after a syncopal episode. He states that he was in the restroom trying to urinate and passed out. He has had difficulty urinating for the past few days. Denies chest pain, dyspnea. Denies lightheadedness or dizziness. Denies headache , vision changes. Denies numbness, tingling, weakness of his extremities. CBC/BMP: 03/11/17 0417 Significant Findings Laboratory Tests Test 03/10/17 03/10/17 03/11/17 04:29 18:50 04:17 Blood Urea Nitrogen 23 MG/DL (7-18) 24 MG/DL (7-18) 24 MG/DL (7-18) Creatinine 1.31 MG/DL (0.60-1.30) Estimat Glomerular Filtration 65 ML/MIN (>89) 70 ML/MIN (>89) 68 ML/MIN (>89) Rate Magnesium Level 1.4 MG/DL (1.5-2.5) Random Glucose 113 MG/DL (74-106) PE at Discharge General: Thin elderly male in no acute distress. Heart: Regular rate and rhythm. No murmur. Lungs: Clear to auscultation bilaterally. No wheezes, rales, or rhonchi. Breathing is nonlabored. Abdomen: Soft, nontender, nondistended. Extremities: No lower extremity edema. Psych: Alert and oriented. Pt update on day of discharge Feels good, creatinine better, no dizziness or lightheadedness. Hospital Course This is a 77-year-old admitted after a syncopal episode. This was thought to be vasovagal connected to inability to urinate. Echocardiogram was done, ejection fraction is 55-65%. Cardiology cleared the patient. Patient also had mild troponin elevation, nuclear stress test was negative. Upon admission, patient also had hypertensive emergency, could be secondary to distended bladder , he required Cardene drip which was then switched oral antihypertensives. For his urinary retention, Buchanan catheter was inserted, urology was consulted, recommendation is to follow-up as outpatient. Patient also had acute renal failure which was secondary to obstructive uropathy which improved with Buchanan catheterization. Creatinine improved. Patient was also found to have UTI, urine culture grew Enterobacter, he will be discharged on Bactrim to finish a course of antibiotics. He'll be discharged to rehabilitation and follow-up with urology. Pt Condition on Discharge: Stable Discharge Disposition: Discharge to SNF Discharge Time: > 30 minutes Discharge Instructions DIET: Follow Instructions for: Heart Healthy Diet Activities you can perform: Regular-No Restrictions Follow up Referrals: Cardiology - 1 Week with Edd Lee MD PCP Follow-up - 2 Weeks Urology - 1 Week with Claudio Augustin MD New Medications: Amlodipine (Norvasc) 5 Mg Tab 5 MG PO DAILY Blood Pressure Management #[address] (Adult Aspirin EC Low Strength) 81 Mg Tabec 81 MG PO DAILY heart #30 Ref 0 TAB Magnesium Oxide (Magnesium Oxide) 241.3 Mg Tab 400 MG PO DAILY Nutritional Supplement #30 Ref 0 TAB Pantoprazole (Pantoprazole) 40 Mg Tab 40 MG PO DAILY Reflux #30 Ref 0 TAB Sulfamethoxazole-Trimethoprim (Sulfamethoxazole-Trimethoprim) 800-160 Mg Tab 1 TAB PO Q12HR uti #6 Ref 0 TAB Piotr Laughlin MD Mar 11, 2017 10:05
== END 2017-03-11 12:22 | DRG 683 ==
LOC: NEPE 11:16 → NEDA 13:17 → HIMN 18:40 → N07A 03-06 15:02
PROVIDERS: ADMIT Hospitalist; ATTEND Hospitalist
DX: N17.9 Acute kidney failure, unspecified (principal); E87.2 Acidosis; E86.0 Dehydration; N39.0 Urinary tract infection, site not specified; I16.1 Hypertensive emergency; F10.20 Alcohol dependence, uncomplicated; F17.210 Nicotine dependence, cigarettes, uncomplicated; E87.6 Hypokalemia; I10 Essential (primary) hypertension; M19.90 Unspecified osteoarthritis, unspecified site; R55 Syncope and collapse; E83.42 Hypomagnesemia; N40.1 Benign prostatic hyperplasia with lower urinary tract symptoms; R33.8 Other retention of urine; K21.9 Gastro-esophageal reflux disease without esophagitis; Z59.0 Homelessness
CPT/HCPCS: 51703; 71010; 76937; 78452; 80048; 80053; 80307; 81001; 82550; 82552; 83605; 83735; 84132; 84155; 84484; 85025; 85610; 85730; 87040; 87077; 87086; 87186; 87641; 93005; 93017; 93306; 96361; 96365; 96375; A9502; J0610; J0696; J1630; J1644; J2060; J2405; J2785; J3411; J3475; J3480; J7030; J7050

== ENCOUNTER 2017-04-19 09:21 | Inpatient (IN) | payer MEDICARE, OTHER ==
[~2017-04-19] VITALS: Ht 170.2 cm; Wt 55.8 kg
[~2017-04-19 09:21] MED LIST: AMLO5 PO; ASPI-99 PO; MAGN400T3 PO; PANT40TA3 PO
[2017-04-19 09:38] VITALS: BP 124/60; PULSE 104; RESP 24; TEMP 97.7
[2017-04-19 10:28] LABS: AUTOMATED NEUTROPHIL # 10.2 TH/MM3 (1.8-7.7); BASOPHIL # 0.1 TH/MM3 (0-0.2); BASOPHIL % 0.5 % (0.0-2.0); EOSINOPHIL % 0.2 % (0.0-4.0); HEMATOCRIT 41.5 % (39.0-51.0); HEMO FLAGS DIFF FINAL; LYMPH % 10.1 % (9.0-44.0); LYMPHOCYTE # 1.2 TH/MM3 (1.0-4.8); MEAN CELL VOLUME 94.5 FL (80.0-100.0); MEAN CORPUSCULAR HEMOGLOBIN 31.2 PG (27.0-34.0); MONO % 6.6 % (0.0-8.0); NEUT % 82.6 % (16.0-70.0); PLATELET COUNT 316 TH/MM3 (150-450); RED CELL DISTRIBUTION WIDTH 13.3 % (11.6-17.2); WHITE BLOOD COUNT 12.4 TH/MM3 (4.0-11.0)
[2017-04-19] MEDS ORDERED: OMEP20TA PO (10:35)
[2017-04-19 10:43] LABS: BICARBONATE 26.1 MEQ/L (21.0-32.0); POTASSIUM 3.1 MEQ/L (3.5-5.1)
[2017-04-19] MEDS ORDERED: SODIUM CHLORID 0.9% 500 ML INJ 500 ML IV ONE (11:00)
[2017-04-19 11:30] VITALS: BP 118/71; PULSE 96; RESP 20; TEMP 97.8; O2SAT 97
--- NOTE | 2017-04-19 11:33 | PD ---
HPI Chief Complaint: General Weakness Time Seen by Provider: 11:26 Travel History International Travel<30 days: No Contact w/Intl Traveler<30days: No Traveled to known affect area: No History of Present Illness HPI 77 YO M with PMH of hypertension, recent cystoscopy by Dr. Augustin presents to the ED for evaluation of 1 month history of intermittent dizziness. No alleviating or exacerbating factors reported. Patient states that the episodes are preceded by "graying out of my vision" and last approximately 60 seconds before resolving spontaneously. He denies ever losing consciousness with these episodes. He endorses chills but has not measured a fever at home. He denies headache, chest pain, palpitations, shortness of breath, cough, abdominal pain, nausea, vomiting, dysuria, back pain, weakness of the extremities. He states that he was seen in the ED approximately one month ago with the same complaint but " they never told me nothing." PFSH Past Medical History Arthritis: Yes Blood Disorders: No Cancer: No Cardiovascular Problems: Yes Diminished Hearing: No Endocrine: No Gastrointestinal Disorders: Yes GERD: Yes Genitourinary: Yes (unable to urinate) Hypertension: Yes Immune Disorder: No Musculoskeletal: Yes Neurologic: No Psychiatric: No Respiratory: No Seizures: Yes (as a child) Tetanus Vaccination: > 5 Years Influenza Vaccination: No Past Surgical History Surgical History: No Previous Surgery AICD: No Joint Replacement: No Pacemaker: No Social History Alcohol Use: Yes (daily) Tobacco Use: No Substance Use: Yes (states crack cocaine and marijuana) Allergies-Medications (Allergen,Severity, Reaction): Coded Allergies: No Known Allergies (Verified , 04/19/17) Reported Meds & Prescriptions Reported Meds & Active Scripts Active Norvasc (Amlodipine Besylate) 5 Mg Tab 5 Mg PO DAILY Reported Omeprazole 20 Mg Tab 20 Mg PO DAILY Review of Systems Except as stated in HPI: all other systems reviewed are Neg Physical Exam Narrative GENERAL: Well-nourished, well-developed thin black male in no acute distress. SKIN: Focused skin assessment warm/dry. HEAD: Normocephalic. EYES: No scleral icterus. No injection or drainage. NECK: Supple, trachea midline. No JVD or lymphadenopathy. CARDIOVASCULAR: Regular rate and rhythm without murmurs, gallops, or rubs. RESPIRATORY: Breath sounds clear and equal bilaterally. No accessory muscle use. GASTROINTESTINAL: Abdomen soft, non-tender, nondistended. Active bowel sounds. GENITOURINARY: Circumcised. Testes descended bilaterally without evidence of rotation. No lesions or erythema. No urethral discharge. Urinary catheter in place with pale, clear yellow urine in the collection bag. MUSCULOSKELETAL: No cyanosis, or edema. BACK: Nontender without obvious deformity. No CVA tenderness. Data Data Last Documented VS Vital Signs Date Time Temp Pulse Resp B/P (MAP) Pulse Ox O2 Delivery O2 Flow Rate FiO2 04/19/17 11:30 97.8 96 20 118/71 (87) 97 Room Air Orders Orders Electrocardiogram (04/19/17 ) Complete Blood Count With Diff (04/19/17 09:41) Basic Metabolic Panel (Bmp) (04/19/17 09:41) Urinalysis - C+S If Indicated (04/19/17 10:57) Chest, Pa & Lat (04/19/17 ) Lactic Acid (04/19/17 10:58) Sodium Chlorid 0.9% 500 Ml Inj (Ns 500 M (04/19/17 11:00) Urine Culture (04/19/17 11:55) Potassium Chloride (Kcl) (04/19/17 13:00) Calcium Carbonate Chew (Tums Chew) (04/19/17 13:00) Levofloxacin 750 Mg Premix Inj (Levaquin (04/19/17 13:00) Labs Laboratory Tests Test 04/19/17 09:53 04/19/17 11:55 White Blood Count 12.4 TH/MM3 Red Blood Count 4.40 MIL/MM3 Hemoglobin 13.7 GM/DL Hematocrit 41.5 % Mean Corpuscular Volume 94.5 FL Mean Corpuscular Hemoglobin 31.2 PG Mean Corpuscular Hemoglobin Concent 33.0 % Red Cell Distribution Width 13.3 % Platelet Count 316 TH/MM3 Mean Platelet Volume 7.2 FL Neutrophils (%) (Auto) 82.6 % Lymphocytes (%) (Auto) 10.1 % Monocytes (%) (Auto) 6.6 % Eosinophils (%) (Auto) 0.2 % Basophils (%) (Auto) 0.5 % Neutrophils # (Auto) 10.2 TH/MM3 Lymphocytes # (Auto) 1.2 TH/MM3 Monocytes # (Auto) 0.8 TH/MM3 Eosinophils # (Auto) 0.0 TH/MM3 Basophils # (Auto) 0.1 TH/MM3 CBC Comment DIFF FINAL Differential Comment Blood Urea Nitrogen 17 MG/DL Creatinine 1.35 MG/DL Random Glucose 84 MG/DL Calcium Level 7.7 MG/DL Sodium Level 138 MEQ/L Potassium Level 3.1 MEQ/L Chloride Level 101 MEQ/L Carbon Dioxide Level 26.1 MEQ/L Anion Gap 11 MEQ/L Estimat Glomerular Filtration Rate 62 ML/MIN Urine Color YELLOW Urine Turbidity CLOUDY Urine pH 6.0 Urine Specific [place] 1.018 Urine Protein 300 mg/dL Urine Glucose (UA) NEG mg/dL Urine Ketones NEG mg/dL Urine Occult Blood MOD Urine Nitrite NEG Urine Bilirubin NEG Urine Urobilinogen 4.0 MG/DL Urine Leukocyte Esterase LARGE Urine RBC 20 /hpf Urine WBC /hpf Urine WBC Clumps MANY Urine Squamous Epithelial Cells <1 /hpf Urine Bacteria MANY /hpf Microscopic Urinalysis Comment CULTURE INDICATED Lactic Acid Level 2.2 mmol/L MDM Medical Decision Making Medical Screen Exam Complete: Yes Emergency Medical Condition: Yes Differential Diagnosis UTI versus urosepsis versus metabolic derangement versus other Narrative Course 77 YO M with PMH of hypertension, recent cystoscopy by Dr. Augustin presents to the ED for evaluation of 1 month history of intermittent dizziness. Patient states that the episodes are preceded by "graying out of my vision" and last approximately 60 seconds before resolving spontaneously. He denies LOC. He endorses chills. He denies headache, chest pain, palpitations, shortness of breath, cough, abdominal pain, nausea, vomiting, dysuria, back pain, weakness of the extremities. Patient is afebrile, tachycardic rate 104, respiratory rate 24 on presentation. Physical exam reveals a black male in NAD. Abdomen nontender. Silva catheter in place with pale yellow urine in the collecting bag. No focal neuro deficits. Review of the record reveals the patient was admitted 03/03 and DC'd 03/11 with urosepsis. He had a negative cardiac workup at that time. He had an in office cystoscopy on 03/[address] Menezes who placed the silva catheter. The patient is scheduled for an upcoming TURP. CBC: WBC 12.4 CMP: K 3.1, Ca 7.7 Lactic: 2.2 UA: Cloudy, moderate occult blood, large leukocyte esterase, innumerable WBCs, many clumps, many bacteria. Culture pending. Patient was administered 500 mL's normal saline, 750 mg Levaquin, 40 mg potassium and 1 g of calcium. He meets sepsis/severe sepsis criteria. Dr. Gillespie discussed the workup with the patient who is agreeable to admission. I spoke with Dr. Pitts who agrees to accept the patient to the medicine service. Urology consult placed with Dr. Augustin. Please see her allergy medicine notes for disposition. Sepsis Criteria SIRS Criteria (2 or more): Heart rate over 90, WBC > 89349, < 4000 or > 10% bands Sepsis Criteria (SIRS+source): Infect source susp/known Severe Sepsis (+one): Lactate >2 Criteria Outcome: Meets SIRS criteria, Meets sepsis criteria, Meets severe sepsis criteria Gabrielle Zamora Apr 19, 2017 11:33
--- NOTE | 2017-04-19 11:43 | RADRPT ---
EXAM DATE/TIME: 04/19/2017 11:23 [facility] COMPARISON: No previous studies available for comparison. INDICATIONS : Dizziness and chest palpitations. MEDICAL HISTORY : Hypertension. SURGICAL HISTORY : None. ENCOUNTER: Initial ACUITY: 2 days PAIN SCORE: 2/10 LOCATION: Bilateral chest FINDINGS: PA and lateral views of the chest demonstrate the lungs to be symmetrically aerated without evidence of mass, infiltrate or effusion. The cardiomediastinal contours are unremarkable. Osseous structure s are intact. CONCLUSION: No acute disease. Bert Jo MD on April 19, 2017 at 11:42 Board Certified Radiologist. This report was verified electronically.
[2017-04-19 12:17] LABS: BACTERIA, URINE MANY /hpf; BLOOD, URINE MOD (NEG); COMMENT (UR) CULTURE INDICATED; CULTURE IF INDICATED CULTURE INDICATED; GLUCOSE,URINE NEG (NEG); KETONE, URINE NEG (NEG); NITRITE,URINE NEG (NEG); SQUAMOUS EPITHELIAL CELL URINE <1 /hpf (0-5); URINE COLOR YELLOW (YELLW/STRAW)
[2017-04-19] MEDS ORDERED: CALCIUM CARBONATE 500 MG CHEWABLE TAB CHEW ONE (13:00)
[2017-04-19] MEDS ORDERED: POTASSIUM CHLORIDE 20 MEQ CONTROLLED RELEASE TAB PO ONE (13:00)
[2017-04-19] MEDS ORDERED: LEVOFLOXACIN 750 MG PREMIX INJ 150 ML IV ONE (13:00)
[2017-04-19 13:04] VITALS: BP 137/81; PULSE 98; RESP 18; TEMP 97.9; O2SAT 97
--- NOTE | 2017-04-19 13:15 | PD ---
Physical Exam Narrative GENERAL: Well-nourished, well-developed patient. SKIN: Warm and dry. HEAD: Normocephalic EYES: No injection or drainage. ENT: No nasal drainage noted. NECK: Supple, trachea midline. CARDIOVASCULAR: Regular rate and rhythm RESPIRATORY: no increased effort. No accessory muscle use. NEUROLOGICAL: Awake and alert. moves all extremities. Normal speech. Data Data Last Documented VS Vital Signs Date Time Temp Pulse Resp B/P (MAP) Pulse Ox O2 Delivery O2 Flow Rate FiO2 04/19/17 11:30 97.8 96 20 118/71 (87) 97 Room Air Orders Orders Electrocardiogram (04/19/17 ) Complete Blood Count With Diff (04/19/17 09:41) Basic Metabolic Panel (Bmp) (04/19/17 09:41) Urinalysis - C+S If Indicated (04/19/17 10:57) Chest, Pa & Lat (04/19/17 ) Lactic Acid (04/19/17 10:58) Sodium Chlorid 0.9% 500 Ml Inj (Ns 500 M (04/19/17 11:00) Urine Culture (04/19/17 11:55) Potassium Chloride (Kcl) (04/19/17 13:00) Calcium Carbonate Chew (Tums Chew) (04/19/17 13:00) Levofloxacin 750 Mg Premix Inj (Levaquin (04/19/17 13:00) Admit Order (Ed Use Only) (04/19/17 12:56) Consult Urology (04/19/17 ) Labs Laboratory Tests Test 04/19/17 09:53 04/19/17 11:55 White Blood Count 12.4 TH/MM3 Red Blood Count 4.40 MIL/MM3 Hemoglobin 13.7 GM/DL Hematocrit 41.5 % Mean Corpuscular Volume 94.5 FL Mean Corpuscular Hemoglobin 31.2 PG Mean Corpuscular Hemoglobin Concent 33.0 % Red Cell Distribution Width 13.3 % Platelet Count 316 TH/MM3 Mean Platelet Volume 7.2 FL Neutrophils (%) (Auto) 82.6 % Lymphocytes (%) (Auto) 10.1 % Monocytes (%) (Auto) 6.6 % Eosinophils (%) (Auto) 0.2 % Basophils (%) (Auto) 0.5 % Neutrophils # (Auto) 10.2 TH/MM3 Lymphocytes # (Auto) 1.2 TH/MM3 Monocytes # (Auto) 0.8 TH/MM3 Eosinophils # (Auto) 0.0 TH/MM3 Basophils # (Auto) 0.1 TH/MM3 CBC Comment DIFF FINAL Differential Comment Blood Urea Nitrogen 17 MG/DL Creatinine 1.35 MG/DL Random Glucose 84 MG/DL Calcium Level 7.7 MG/DL Sodium Level 138 MEQ/L Potassium Level 3.1 MEQ/L Chloride Level 101 MEQ/L Carbon Dioxide Level 26.1 MEQ/L Anion Gap 11 MEQ/L Estimat Glomerular Filtration Rate 62 ML/MIN Urine Color YELLOW Urine Turbidity CLOUDY Urine pH 6.0 Urine Specific [place] 1.018 Urine Protein 300 mg/dL Urine Glucose (UA) NEG mg/dL Urine Ketones NEG mg/dL Urine Occult Blood MOD Urine Nitrite NEG Urine Bilirubin NEG Urine Urobilinogen 4.0 MG/DL Urine Leukocyte Esterase LARGE Urine RBC 20 /hpf Urine WBC /hpf Urine WBC Clumps MANY Urine Squamous Epithelial Cells <1 /hpf Urine Bacteria MANY /hpf Microscopic Urinalysis Comment CULTURE INDICATED Lactic Acid Level 2.2 mmol/L MDM Supervised Visit with ANGELA: Yes Interpretation(s) CBC & BMP Diagram 04/19/17 09:53 Calcium Level 7.7 L Last 24 hours Impressions Chest X-Ray 04/19/17 0000 Signed Impressions: Service Date/Time: Wednesday, April 19, 2017 11:23 - CONCLUSION: No acute disease. Bert Jo MD Narrative Course I, Dr. nelson, have reviewed the advance practice practitioner's documentation and am in agreement, met with the patient face to face, made the diagnosis, and the medical decision making was done by me. *My assessment and Findings: 77-year-old gentleman that presents with ongoing dizziness, ua, xray, and lactic added on to protocols ordered given recent UTI with sepsis, workup reveals uti with sepsis again with elevated lactic acid, patient updated and agrees to admit Sepsis Criteria SIRS Criteria (2 or more): WBC > 51778, < 4000 or > 10% bands Sepsis Criteria (SIRS+source): Infect source susp/known Severe Sepsis (+one): Lactate >2 Criteria Outcome: Meets severe sepsis criteria Diagnosis Primary Impression: Sepsis Qualified Codes: A41.9 - Sepsis, unspecified organism Admitting Information Admitting Physician Requests: Admit Jyothi Nelson MD Apr 19, 2017 13:15
[2017-04-19] MEDS ORDERED: NALOXONE HCL 0.4 MG/ML AMP IV PUSH PRN (13:30)
[2017-04-19] MEDS ORDERED: LACTULOSE SYRUP 20 GM/30 ML CUP PO PRN (13:30)
[2017-04-19] MEDS ORDERED: BISACODYL 10 MG SUPP RECTAL PRN (13:30)
[2017-04-19] MEDS ORDERED: MAGNESIUM HYDROXIDE SUSP 30 ML CUP PO PRN (13:30)
[2017-04-19] MEDS ORDERED: ACETAMINOPHEN 325 MG TAB PO PRN (13:30)
[2017-04-19] MEDS ORDERED: ONDANSETRON HCL 4 MG/2 ML VIAL IVP PRN (13:30)
[2017-04-19] MEDS ORDERED: SENNOSIDES 8.6 MG TAB PO PRN (13:30)
[2017-04-19] MEDS: NS + KCL 20 MEQ INJ 1,000 ML IV SCH (15:03)
[2017-04-19] MEDS: HEPARIN SODIUM - SQ 10,000 UNITS/ML VIAL SQ SCH (15:05)
--- NOTE | 2017-04-19 15:10 | HHI.HP ---
[facility] Service [facility] Primary Care Physician No Primary Care Physician Admission Diagnosis urosepsis Diagnoses: (1) Sepsis (2) Leukocytosis (3) Lactic acidosis (4) Hypertension (5) UTI (urinary tract infection) (6) Hypokalemia Chief Complaint: Dizziness Travel History International Travel<30 Days: No Contact w/Intl Traveler <30 Da: No Traveled to Known Affected Are: No Sepsis Criteria SIRS Criteria (2 or more): Heart rate over 90, WBC > 84995, < 4000 or > 10% bands Sepsis Criteria (SIRS+source): Infect source susp/known Severe Sepsis (+one): Lactate >2 Criteria Outcome: Meets severe sepsis criteria History of Present Illness Patient is a 77-year-old male who presents to the emergency department with complaint of intermittent dizziness for the past month. He states that it has not really gotten better since he got out of the hospital. His symptoms worsened over the past couple days. He felt like he was going to pass out. He denies actual syncopal episodes. Denies chest pain or dyspnea. Denies fever, chills, night sweats. He had a cystoscopy recently and has an indwelling Buchanan catheter. Review of Systems Constitutional: COMPLAINS OF: Dizziness, DENIES: Fever, Chills, Night Sweats Eyes: DENIES: Blurred vision, Vision loss Ears, nose, mouth, throat: DENIES: Hearing loss Respiratory: DENIES: Cough, Wheezing, Sputum production, Shortness of breath Cardiovascular: DENIES: Chest pain, Palpitations, Dyspnea on Exertion, Lower Extremity Edema Gastrointestinal: DENIES: Abdominal pain, Constipation, Diarrhea, Nausea, Vomiting Genitourinary: DENIES: Urinary frequency, Urinary incontinence, Urgency, Hematuria, Dysuria, Nocturia Musculoskeletal: DENIES: Joint pain, Muscle aches Integumentary: DENIES: Pruritus, Rash Hematologic/lymphatic: DENIES: Bruising Neurologic: DENIES: Headache Past Family Social History Past Medical History GERD Hypertension Urinary retention Osteoarthritis Past Surgical History Cystoscopy Reported Medications Norvasc 5 mg daily Omeprazole 20 mg daily Allergies: Coded Allergies: No Known Allergies (Verified , 04/19/17) Family History Denies significant family medical history. Social History Quit smoking 40 years ago, but has previously stated that he smokes cigarettes "occasionally". Admits to marijuana use. Remote history of crack cocaine use, which he states was 35 years ago. On previous admission he had stated that he used cocaine about a year ago. Drinks beer daily. Physical Exam Vital Signs Vital Signs Date Time Temp Pulse Resp B/P (MAP) Pulse Ox O2 Delivery O2 Flow Rate FiO2 04/19/17 13:04 97.9 98 18 137/81 (99) 97 Room Air 04/19/17 11:30 97.8 96 20 118/71 (87) 97 Room Air 04/19/17 10:35 98 20 97 Room Air 04/19/17 09:38 97.7 104 24 124/60 (81) Room Air Physical Exam GENERAL: Well-nourished, well-developed male in no acute distress. HEENT: Normocephalic, atraumatic. Pupils equal, round and reactive. Extraocular movements intact. No scleral icterus. No injection or drainage. Oropharynx is clear. Mucous membranes are moist. CARDIOVASCULAR: Regular rate and rhythm without murmurs, gallops, or rubs. RESPIRATORY: Clear to auscultation. No wheezes, rales, or rhonchi. Breathing is non-labored. GASTROINTESTINAL: Abdomen soft, non-tender, nondistended. EXTREMITIES: No lower extremity edema. No calf tenderness. PSYCH: Alert and oriented x 3. Laboratory Laboratory Tests Test 04/19/17 09:53 04/19/17 11:55 White Blood Count 12.4 Red Blood Count 4.40 Hemoglobin 13.7 Hematocrit 41.5 Mean Corpuscular Volume 94.5 Mean Corpuscular Hemoglobin 31.2 Mean Corpuscular Hemoglobin Concent 33.0 Red Cell Distribution Width 13.3 Platelet Count 316 Mean Platelet Volume 7.2 Neutrophils (%) (Auto) 82.6 Lymphocytes (%) (Auto) 10.1 Monocytes (%) (Auto) 6.6 Eosinophils (%) (Auto) 0.2 Basophils (%) (Auto) 0.5 Neutrophils # (Auto) 10.2 Lymphocytes # (Auto) 1.2 Monocytes # (Auto) 0.8 Eosinophils # (Auto) 0.0 Basophils # (Auto) 0.1 CBC Comment DIFF FINAL Differential Comment Blood Urea Nitrogen 17 Creatinine 1.35 Random Glucose 84 Calcium Level 7.7 Sodium Level 138 Potassium Level 3.1 Chloride Level 101 Carbon Dioxide Level 26.1 Anion Gap 11 Estimat Glomerular Filtration Rate 62 Urine Color YELLOW Urine Turbidity CLOUDY Urine pH 6.0 Urine Specific [place] 1.018 Urine Protein 300 Urine Glucose (UA) NEG Urine Ketones NEG Urine Occult Blood MOD Urine Nitrite NEG Urine Bilirubin NEG Urine Urobilinogen 4.0 Urine Leukocyte Esterase LARGE Urine RBC 20 Urine WBC Urine WBC Clumps MANY Urine Squamous Epithelial Cells <1 Urine Bacteria MANY Microscopic Urinalysis Comment CULTURE INDICATED Lactic Acid Level 2.2 Date/Time Source Procedure Growth Status 04/19/17 13:45 Blood Peripheral Aerobic Blood Culture Pending Received 04/19/17 13:45 Blood Peripheral Anaerobic Blood Culture Pending Received 04/19/17 11:55 Urine Clean Catch Urine Culture Pending Received Result Diagram: 04/19/17 0953 04/19/17 0953 Imaging Last Impressions Chest X-Ray 04/19/17 0000 Signed Impressions: Service Date/Time: Wednesday, April 19, 2017 11:23 - CONCLUSION: No acute disease. Bert Jo MD [facility] VTE Risk Assessment Caprini VTE Risk Assessment: Mod/High Risk (score >= 2) Caprini Risk Assessment Model Point Value = 1 Point Value = 2 Point Value = 3 Point Value = 5 Age 41-60 Minor surgery BMI > 25 kg/m2 Swollen legs Varicose veins or History of unexplained or recurrent spontaneous Oral contraceptives or hormone replacement Sepsis (< 1 month) Serious lung disease, including pneumonia (< 1 month) Abnormal pulmonary function Acute myocardial infarction Congestive heart failure (< 1 month) History of inflammatory bowel disease Medical patient at bed rest Age 61-74 Arthroscopic surgery Major open surgery (> 45 min) Laparoscopic surgery (> 45 min) Malignancy Confined to bed (> 72 hours) Immobilizing plaster cast Central venous access Age >= 75 History of VTE Family history of VTE Factor V Leiden Prothrombin [id number] Lupus anticoagulant Anticardiolipin antibodies Elevated serum homocysteine Heparin-induced thrombocytopenia Other congenital or acquired thrombophilia Stroke (< 1 month) Elective arthroplasty Hip, pelvis, or leg fracture Acute spinal cord injury (< 1 month) Prophylaxis Regimen Total Risk Factor Score Risk Level Prophylaxis Regimen 0-1 Low Early ambulation 2 Moderate Order ONE of the following: *Sequential Compression Device (SCD) *Heparin 5000 units SQ BID 3-4 Higher Order ONE of the following medications: *Heparin 5000 units SQ TID *Enoxaparin/Lovenox 40 mg SQ daily (WT < 150 kg, CrCl > 30 mL/min) *Enoxaparin/Lovenox 30 mg SQ daily (WT < 150 kg, CrCl > 10-29 mL/min) *Enoxaparin/Lovenox 30 mg SQ BID (WT < 150 kg, CrCl > 30 mL/min) AND/OR *Sequential Compression Device (SCD) 5 or more Highest Order ONE of the following medications: *Heparin 5000 units SQ TID (Preferred with Epidurals) *Enoxaparin/Lovenox 40 mg SQ daily (WT < 150 kg, CrCl > 30 mL/min) *Enoxaparin/Lovenox 30 mg SQ daily (WT < 150 kg, CrCl > 10-29 mL/min) *Enoxaparin/Lovenox 30 mg SQ BID (WT < 150 kg, CrCl > 30 mL/min) AND *Sequential Compression Device (SCD) Assessment and Plan Assessment and Plan 1. Severe sepsis, source is UTI: Continue antibiotics. Urine culture and blood culture ordered. Serum lactic acid level is elevated. Repeat is pending. 2. UTI, urinary retention, indwelling Buchanan catheter: Consult urology. Change Buchanan catheter. 3. Acute kidney injury: Likely secondary to dehydration. IV fluids. Monitor BUN and creatinine. 4. Hypokalemia: Supplement potassium. 5. Lactic acidosis: Follow serum lactic acid level. 6. Hypertension: Continue Norvasc. 7. Dizziness, lightheadedness: Likely exacerbated by sepsis/UTI. Monitor on telemetry. 8. DVT prophylaxis: Heparin. Problem Qualifiers (1) Sepsis: Qualified Codes: A41.9 - Sepsis, unspecified organism Aditya Pitts MD Apr 19, 2017 15:10
[2017-04-19 15:35] VITALS: BP 130/84; TEMP 97.8
[2017-04-19 16:00] VITALS: BP 139/84; PULSE 108; RESP 16; TEMP 97.8; O2SAT 95
[2017-04-19 20:00] VITALS: BP 131/70; PULSE 110; RESP 20; TEMP 97.4; O2SAT 97
[2017-04-19] MEDS: DOCUSATE SODIUM 50 MG/SENNA 8.6 MG TAB PO SCH (20:36)
--- NOTE | 2017-04-19 21:04 | EKG ---
Date Performed: 04/19/2017 Time Performed: 10:05:13 PTAGE: 77 years EKG: Sinus rhythm NORMAL ECG PREVIOUS TRACING : 03/03/2017 17.41 Compared to prior tracing no significant change DOCTOR: Nivia Gilbert Interpretating Date/Time 04/19/2017 21:02:41
[2017-04-20] VITALS (8 sets, daily range): BP systolic 110–129; BP diastolic 65–79; PULSE 96–116; RESP 16–18; TEMP 96.4–98.1; O2SAT 95–97
[2017-04-20] MEDS: NS + KCL 20 MEQ INJ 1,000 ML IV SCH ×2 (04:54→11:57)
[2017-04-20] MEDS: HEPARIN SODIUM - SQ 10,000 UNITS/ML VIAL SQ SCH ×2 (04:54→16:27)
[2017-04-20] MEDS: DOCUSATE SODIUM 50 MG/SENNA 8.6 MG TAB PO SCH ×2 (07:59→20:27)
[2017-04-20] MEDS: PANTOPRAZOLE SOD 20 MG DELAYED RELEASE TAB PO SCH (08:00)
[2017-04-20] MEDS: amLODIPine BESYLATE 5 MG TAB PO SCH (08:00)
[2017-04-20] MEDS: LEVOFLOXACIN 750 MG PREMIX INJ 150 ML IV SCH (11:57)
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
--- NOTE | 2017-04-20 14:22 | HHI.PR ---
Subjective Remarks Follow-up UTI, sepsis. Patient has no complaints at this time. Denies pain, fever, chills, dyspnea. Objective Vitals Vital Signs Date Time Temp Pulse Resp B/P (MAP) Pulse Ox O2 Delivery O2 Flow Rate FiO2 04/20/17 12:00 98.1 96 16 110/65 (80) 97 04/20/17 08:00 97.6 102 18 121/65 (83) 95 04/20/17 04:00 97.6 104 18 123/70 (87) 97 04/20/17 01:32 105 04/20/17 00:00 96.4 116 18 124/79 (94) 97 04/19/17 20:00 97.4 110 20 131/70 (90) 97 04/19/17 16:00 97.8 108 16 139/84 (102) 95 04/19/17 15:35 97.8 86 17 130/84 (99) 98 I/O 04/19/17 04/19/17 04/19/17 04/20/17 04/20/17 04/20/17 07:00 15:00 23:00 07:00 15:00 23:00 Intake Total 650 ml 120 ml Output Total 600 ml Balance 650 ml -600 ml 120 ml Intake Oral 120 ml IV Total 650 ml Output Urine Total 600 ml # Bowel Movements 0 Result Diagram: 04/19/17 0953 04/19/17 0953 Imaging Last Impressions Chest X-Ray 04/19/17 0000 Signed Impressions: Service Date/Time: Wednesday, April 19, 2017 11:23 - CONCLUSION: No acute disease. Bert Jo MD Objective Remarks General: No acute distress. Heart: Regular rate and rhythm. No murmur. Lungs: Clear to auscultation bilaterally. No wheezes, rales, or rhonchi. Breathing is nonlabored. Abdomen: Soft, nontender, nondistended. Extremities: No lower extremity edema. Psych: Alert and oriented. Procedures None Urinary Catheter: Yes Assessment to: Continue Buchanan insert reason: Obstruction/Retention Vascular Central Line Catheter: No A/P Problem List: (1) Sepsis ICD Code: A41.9 - Sepsis, unspecified organism Status: Acute (2) Leukocytosis ICD Code: D72.829 - Elevated white blood cell count, unspecified (3) Lactic acidosis ICD Code: E87.2 - Acidosis (4) Hypertension ICD Code: I10 - Essential (primary) hypertension Status: Acute (5) UTI (urinary tract infection) ICD Code: N39.0 - Urinary tract infection, site not specified Status: Acute (6) Hypokalemia ICD Code: E87.6 - Hypokalemia Status: Acute Assessment and Plan 1. Severe sepsis, source is UTI: Continue antibiotics. Blood culture negative so far. Urine culture growing gram-negative florentino. Serum lactic acid now within normal limits. 2. UTI, urinary retention, indwelling Buchanan catheter: Appreciate urology consult. Change Buchanan catheter. 3. Acute kidney injury: Likely secondary to dehydration. IV fluids. Monitor BUN and creatinine. Labs are pending today. 4. Hypokalemia: Labs are pending today. 5. Lactic acidosis: Resolved. 6. Hypertension: Continue Norvasc. 7. Dizziness, lightheadedness: Likely exacerbated by sepsis/UTI. Monitor on telemetry. 8. DVT prophylaxis: Heparin. Problem Qualifiers (1) Sepsis: Qualified Codes: A41.9 - Sepsis, unspecified organism Aditya Pitts MD Apr 20, 2017 14:22
[2017-04-20] MEDS: PHENAZOPYRIDINE HCL 100 MG TAB PO PRN (19:15)
[2017-04-20 19:57] LABS: AUTOMATED NEUTROPHIL # 6.9 TH/MM3 (1.8-7.7); BASOPHIL # 0.1 TH/MM3 (0-0.2); BASOPHIL % 0.8 % (0.0-2.0); EOSINOPHIL % 0.1 % (0.0-4.0); HEMATOCRIT 39.5 % (39.0-51.0); HEMO FLAGS DIFF FINAL; LYMPH % 18.7 % (9.0-44.0); LYMPHOCYTE # 1.8 TH/MM3 (1.0-4.8); MEAN CELL VOLUME 93.6 FL (80.0-100.0); MEAN CORPUSCULAR HEMOGLOBIN 31.1 PG (27.0-34.0); MEAN CORPUSCULAR HGB CONC 33.2 % (32.0-36.0); NEUT % 72.4 % (16.0-70.0); PLATELET COUNT 341 TH/MM3 (150-450); RED BLOOD COUNT 4.22 MIL/MM3 (4.50-5.90); RED CELL DISTRIBUTION WIDTH 13.1 % (11.6-17.2); WHITE BLOOD COUNT 9.5 TH/MM3 (4.0-11.0)
[2017-04-20 20:28] LABS: ANION GAP 8 MEQ/L (5-15); AST (GOT) 14 U/L (15-37); BICARBONATE 27.4 MEQ/L (21.0-32.0); BLOOD UREA NITROGEN 11 MG/DL (7-18); CHLORIDE 104 MEQ/L (98-107); POTASSIUM 3.1 MEQ/L (3.5-5.1); SODIUM (NA) 139 MEQ/L (136-145)
[2017-04-20 20:29] LABS: GLOMERULAR FILTRATION RATE 95 ML/MIN (>89)
[2017-04-20 20:31] LABS: ALKALINE PHOSPHATASE 64 U/L (45-117); ALT (GPT) 12 U/L (12-78); TOTAL BILIRUBIN ADULT 0.6 MG/DL (0.2-1.0)
[2017-04-21] VITALS: BP 122/71; PULSE 96; RESP 17; TEMP 97.2; O2SAT 97
[2017-04-21] MEDS: HEPARIN SODIUM - SQ 10,000 UNITS/ML VIAL SQ SCH ×2 (04:00→15:07)
[2017-04-21] MEDS: NS + KCL 20 MEQ INJ 1,000 ML IV SCH ×3 (05:43→21:16)
[2017-04-21 08:00] VITALS: BP 127/81; PULSE 105; RESP 16; TEMP 96.7; O2SAT 99
[2017-04-21] MEDS: DOCUSATE SODIUM 50 MG/SENNA 8.6 MG TAB PO SCH ×2 (08:59→21:00)
[2017-04-21] MEDS: PANTOPRAZOLE SOD 20 MG DELAYED RELEASE TAB PO SCH (09:00)
[2017-04-21] MEDS: amLODIPine BESYLATE 5 MG TAB PO SCH (09:01)
[2017-04-21 09:03] LABS: BICARBONATE 23.9 MEQ/L (21.0-32.0); POTASSIUM 3.2 MEQ/L (3.5-5.1)
[2017-04-21] MEDS: PHENAZOPYRIDINE HCL 100 MG TAB PO PRN (09:04)
[2017-04-21 09:07] LABS: AUTOMATED NEUTROPHIL # 6.7 TH/MM3 (1.8-7.7); BASOPHIL # 0.1 TH/MM3 (0-0.2); BASOPHIL % 0.8 % (0.0-2.0); EOSINOPHIL % 0.2 % (0.0-4.0); HEMATOCRIT 40.5 % (39.0-51.0); HEMO FLAGS DIFF FINAL; LYMPH % 18.7 % (9.0-44.0); LYMPHOCYTE # 1.7 TH/MM3 (1.0-4.8); MEAN CELL VOLUME 94.1 FL (80.0-100.0); MEAN CORPUSCULAR HEMOGLOBIN 31.5 PG (27.0-34.0); MEAN CORPUSCULAR HGB CONC 33.4 % (32.0-36.0); MONO % 8.1 % (0.0-8.0); NEUT % 72.2 % (16.0-70.0); PLATELET COUNT 364 TH/MM3 (150-450); RED CELL DISTRIBUTION WIDTH 12.7 % (11.6-17.2); WHITE BLOOD COUNT 9.3 TH/MM3 (4.0-11.0)
[2017-04-21 12:00] VITALS: BP 130/76; PULSE 90; RESP 16; TEMP 97.5; O2SAT 98
[2017-04-21] MEDS: LEVOFLOXACIN 750 MG PREMIX INJ 150 ML IV SCH (13:10)
[2017-04-21] MEDS ORDERED: POTASSIUM CHLORIDE 10 MEQ CONTROLLED RELEASE TAB PO ONE (14:00)
--- NOTE | 2017-04-21 14:27 | HHI.PR ---
Subjective Remarks Follow up UTI, sepsis. Buchanan catheter changed. Patient reporting dysuria. No chest pain, dyspnea, nausea, vomiting. Objective Vitals Vital Signs Date Time Temp Pulse Resp B/P (MAP) Pulse Ox O2 Delivery O2 Flow Rate FiO2 04/21/17 12:00 97.5 90 16 130/76 (94) 98 04/21/17 08:00 96.7 105 16 127/81 (96) 99 04/21/17 00:00 97.2 96 17 122/71 (88) 97 04/20/17 20:20 107 04/20/17 20:00 97.8 105 17 128/78 (95) 97 04/20/17 16:00 97.4 100 16 129/70 (89) 96 I/O 04/20/17 04/20/17 04/20/17 04/21/17 04/21/17 04/21/17 07:00 15:00 23:00 07:00 15:00 23:00 Intake Total 120 ml 240 ml 943 ml Output Total 750 ml 1050 ml Balance 120 ml -510 ml -107 ml Intake Oral 120 ml 240 ml 240 ml IV Total 703 ml Output Urine Total 750 ml 1050 ml # Bowel Movements 0 Result Diagram: 04/21/17 0737 04/21/17 0737 Imaging Last Impressions Chest X-Ray 04/19/17 0000 Signed Impressions: Service Date/Time: Wednesday, April 19, 2017 11:23 - CONCLUSION: No acute disease. Bert Jo MD Objective Remarks General: No acute distress. Heart: Regular rate and rhythm. No murmur. Lungs: Clear to auscultation bilaterally. No wheezes, rales, or rhonchi. Breathing is nonlabored. Abdomen: Soft, nontender, nondistended. Extremities: No lower extremity edema. Psych: Alert and oriented. Procedures None Urinary Catheter: Yes Assessment to: Continue Buchanan insert reason: Obstruction/Retention Vascular Central Line Catheter: No A/P Problem List: (1) Sepsis ICD Code: A41.9 - Sepsis, unspecified organism Status: Acute (2) Leukocytosis ICD Code: D72.829 - Elevated white blood cell count, unspecified (3) Lactic acidosis ICD Code: E87.2 - Acidosis (4) Hypertension ICD Code: I10 - Essential (primary) hypertension Status: Acute (5) UTI (urinary tract infection) ICD Code: N39.0 - Urinary tract infection, site not specified Status: Acute (6) Hypokalemia ICD Code: E87.6 - Hypokalemia Status: Acute Assessment and Plan 1. Severe sepsis, source is UTI: Blood culture negative so far. Urine culture growing E coli. Adjust antibiotics. Serum lactic acid now within normal limits. 2. UTI, urinary retention, indwelling Buchanan catheter: Appreciate urology consult. Buchanan catheter changed. 3. Acute kidney injury: Likely secondary to dehydration. IV fluids. Monitor BUN and creatinine. Improved. 4. Hypokalemia: Supplement potassium. Check serum magnesium. 5. Lactic acidosis: Resolved. 6. Hypertension: Continue Norvasc. 7. Dizziness, lightheadedness: Likely exacerbated by sepsis/UTI. Monitor on telemetry. 8. DVT prophylaxis: Heparin. Problem Qualifiers (1) Sepsis: Qualified Codes: A41.9 - Sepsis, unspecified organism Aditya Pitts MD Apr 21, 2017 14:27
[2017-04-21] MEDS: cefTRIAXone INJ 1,000 MG in SODIUM CHLORIDE 0.9% INJ 100 ML IV SCH (15:07)
[2017-04-21 16:00] VITALS: BP 138/83; PULSE 99; RESP 16; TEMP 97.6; O2SAT 98
[2017-04-21 20:00] VITALS: BP 136/73; PULSE 104; RESP 16; TEMP 97.7; O2SAT 95
[2017-04-22] VITALS (8 sets, daily range): BP systolic 117–136; BP diastolic 67–89; PULSE 93–113; RESP 16–18; TEMP 96.2–98.2; O2SAT 95–100
[2017-04-22] MEDS: HEPARIN SODIUM - SQ 10,000 UNITS/ML VIAL SQ SCH ×2 (04:00→16:35)
[2017-04-22 06:00] LABS: BASOPHIL # 0.1 TH/MM3 (0-0.2); EOSINOPHIL % 0.4 % (0.0-4.0); HEMATOCRIT 41.1 % (39.0-51.0); HEMO FLAGS DIFF FINAL; LYMPH % 22.1 % (9.0-44.0); LYMPHOCYTE # 1.9 TH/MM3 (1.0-4.8); MEAN CELL VOLUME 93.7 FL (80.0-100.0); MEAN CORPUSCULAR HEMOGLOBIN 31.6 PG (27.0-34.0); MEAN CORPUSCULAR HGB CONC 33.7 % (32.0-36.0); MONO % 7.5 % (0.0-8.0); PLATELET COUNT 372 TH/MM3 (150-450); RED BLOOD COUNT 4.39 MIL/MM3 (4.50-5.90); RED CELL DISTRIBUTION WIDTH 12.8 % (11.6-17.2); WHITE BLOOD COUNT 8.7 TH/MM3 (4.0-11.0)
[2017-04-22 06:28] LABS: ANION GAP 11 MEQ/L (5-15); BICARBONATE 26.4 MEQ/L (21.0-32.0); BLOOD UREA NITROGEN 14 MG/DL (7-18); CHLORIDE 104 MEQ/L (98-107); GLOMERULAR FILTRATION RATE 89 ML/MIN (>89); MAGNESIUM LESS THAN 0.3 MG/DL (1.5-2.5); POTASSIUM 3.7 MEQ/L (3.5-5.1); SODIUM (NA) 141 MEQ/L (136-145)
[2017-04-22] MEDS: DOCUSATE SODIUM 50 MG/SENNA 8.6 MG TAB PO SCH ×2 (08:55→20:59)
[2017-04-22] MEDS: amLODIPine BESYLATE 5 MG TAB PO SCH (08:58)
[2017-04-22] MEDS: PANTOPRAZOLE SOD 20 MG DELAYED RELEASE TAB PO SCH (08:58)
[2017-04-22] MEDS ORDERED: AMOX875T PO (11:04)
[2017-04-22] MEDS: cefTRIAXone INJ 1,000 MG in SODIUM CHLORIDE 0.9% INJ 100 ML IV SCH (13:27)
[2017-04-22] MEDS: NS + KCL 20 MEQ INJ 1,000 ML IV SCH (14:30)
[2017-04-22] MEDS: MAGNESIUM SULFATE 1 GM PREMIX 100 ML IV SCH ×2 (17:15→19:04)
[2017-04-22] MEDS ORDERED: MAGNESIUM OXIDE 400 MG TAB PO ONE (17:15)
[2017-04-22] MEDS ORDERED: THIAMINE HCL 100 MG TAB PO ONE (17:15)
--- NOTE | 2017-04-22 17:16 | HHI.PR ---
Subjective Remarks Reports continued urethral discomfort. Denies any chest pain or shortness of breath. He says that ever since he has been in the hospital, he feels lightheaded when he stands up as if he will pass out, but also endorses room spinning during this time as well. Objective Vital Signs Date Time Temp Pulse Resp B/P (MAP) Pulse Ox O2 Delivery O2 Flow Rate FiO2 04/22/17 12:00 98.2 103 16 136/81 (99) 100 04/22/17 08:00 99 04/22/17 08:00 97.3 97 16 132/78 (96) 96 04/22/17 04:00 104 127/76 (93) 04/22/17 00:00 96.2 107 18 127/86 (100) 100 04/21/17 20:00 97.7 104 16 136/73 (94) 95 I/O 04/21/17 04/21/17 04/21/17 04/22/17 04/22/17 04/22/17 07:00 15:00 23:00 07:00 15:00 23:00 Intake Total 943 ml 1534 ml 1779 ml Output Total 1050 ml 600 ml Balance -107 ml 934 ml 1779 ml Intake Oral 240 ml 360 ml IV Total 703 ml 1174 ml 1779 ml Output Urine Total 1050 ml 600 ml # Bowel Movements 0 Result Diagram: 04/22/1744804/22/17448 Objective Remarks GENERAL: sitting up in bed. Appears comfortable. SKIN: Warm and dry. HEAD: Normocephalic. EYES: No scleral icterus. No injection or drainage. Pupils equal round and reactive to light. Severe bilateral nystagmus NECK: Supple, trachea midline. No JVD. CARDIOVASCULAR: Regular rate and rhythm without murmurs, gallops, or rubs. RESPIRATORY: Breath sounds equal bilaterally. No accessory muscle use. GASTROINTESTINAL: Abdomen soft, non-tender, nondistended. MUSCULOSKELETAL: No cyanosis, or edema. BACK: Nontender without obvious deformity. No CVA tenderness. A/P Assessment and Plan =====04/22/17 /Dizziness. //significant bilateral nystagmus on exam -no significant tremor or other signs of alcohol withdrawal. Patient does drink about 2 drinks per day. Denies any history of withdrawal. Ataxia not typical of Warneke's. Nevertheless, will place on thiamine. Order CT head, consult neurology //Severe hypomagnesemia. Magnesium less than 0.3. Could be a possible cause of nystagmus. Replaced IV and by mouth.. Recheck labs tomorrow // Severe sepsis, source is UTI: Blood culture negative so far. Urine culture growing E coli. Adjust antibiotics. Serum lactic acid now within normal limits. -04/22 Switched to amoxicillin by mouth. //UTI, urinary retention, indwelling Buchanan catheter: Appreciate urology consult. Buchanan catheter changed. -04/22. Switched to amoxicillin by mouth. //Acute kidney injury: Likely secondary to dehydration. IV fluids. Monitor BUN and creatinine. = Resolved. //Hypokalemia: Resolved after replacement. //Lactic acidosis: Resolved. //Hypertension: Continue Norvasc. //Dizziness, lightheadedness -Suspect this could be secondary to nystagmus, hypomagnesemia. DVT prophylaxis: Heparin. Discharge Planning Possible discharge tomorrow if magnesium replaced and lightheadedness, nystagmus resolves. Stepan Mehta MD Apr 22, 2017 17:16
[2017-04-22] MEDS ORDERED: THIAMINE INJ 100 MG in SODIUM CHLORIDE 0.9% INJ 100 ML IV ONE (18:00)
--- NOTE | 2017-04-22 18:39 | RADRPT ---
EXAM DATE/TIME: 04/22/2017 18:00 [facility] COMPARISON: No previous studies available for comparison. INDICATIONS : Syncope. MEDICAL HISTORY : Gastroesophageal reflux disease. Hypertension. Seizures. Angina. Arthritis. Urinary tract infecti on. Arthritis. Alcohol use. SURGICAL HISTORY : None. ENCOUNTER: Initial ACUITY: 1 day PAIN SCORE: 3/10 LOCATION: Bilateral neck PEAK SYSTOLIC VELOCITIES (cm/sec): ICA/CCA RATIO: Right: 0.8 Left: 1.0 ICA: Right: 52.6 Left: 63.3 CCA: Right: 64.7 Left: 60.7 ECA: Right: 40.5 Left: 32.7 VERTEBRAL: Right: 44.9 antegrade Left: 32.7 antegrade Elevated flow velocities and ICA/CCA ratios have been found to correlate with increased degrees of vessel stenosis, calculated as percentage of diameter relative to a normal segment of distal ICA/CCA FINDINGS: RIGHT CAROTID: No significant stenosis is visualized. The waveforms are within normal limits. LEFT CAROTID: No significant stenosis is visualized. The waveforms are within normal limits. VERTEBRAL ARTERIES: Antegrade flow is seen in both vertebral arteries. MISCELLANEOUS: None. CONCLUSION: Within normal limits. No significant plaque or narrowing of the carotids. Rodriguez Donald MD on April 22, 2017 at 18:37 Board Certified Radiologist. This report was verified electronically.
[2017-04-22] MEDS: AMOXICILLIN 875 MG TAB PO SCH (20:59)
--- NOTE | 2017-04-22 21:57 | RADRPT ---
EXAM DATE/TIME: 04/22/2017 21:41 [facility] COMPARISON: No previous studies available for comparison. INDICATIONS : Dizziness. RADIATION DOSE: 31.37 CTDIvol (mGy) MEDICAL HISTORY : Cardiovascular disease. Seizures. Gastroesophageal reflux disease.Hypertension. SURGICAL HISTORY : None. ENCOUNTER: Initial ACUITY: 1 day PAIN SCALE: 1/10 LOCATION: cranial TECHNIQUE: Multiple contiguous axial images were obtained of the head. Using automated exposure control and adj ustment of the mA and/or kV according to patient size, radiation dose was kept as low as reasonably a chievable to obtain optimal diagnostic quality images. DICOM format image data is available electro nically for review and comparison. FINDINGS: CEREBRUM: Atrophy with mild ventricular dilatation noted.. No evidence of midline shift, mass lesion, hemorrha ge or acute infarction. No extra-axial fluid collections are seen. The chronic, symmetric low attenu ation seen in the periventricular white matter. POSTERIOR FOSSA: The cerebellum and brainstem are intact. The 4th ventricle is midline. The cerebellopontine angle i s unremarkable. EXTRACRANIAL: There is a small fluid level in the visualized right maxillary air cell. SKULL: The calvaria is intact. No evidence of skull fracture. CONCLUSION: 1. No acute intracranial abnormality. 2. Atrophy and chronic white matter changes. 3. Apparent right maxillary sinus disease. Rodriguez Donald MD on April 22, 2017 at 21:55 Board Certified Radiologist. This report was verified electronically.
[2017-04-23] VITALS (7 sets, daily range): BP systolic 103–127; BP diastolic 60–81; PULSE 84–110; RESP 16–18; TEMP 96.3–97.9; O2SAT 95–100
[2017-04-23] MEDS: HEPARIN SODIUM - SQ 10,000 UNITS/ML VIAL SQ SCH ×2 (05:08→16:27)
[2017-04-23 07:24] LABS: AUTOMATED NEUTROPHIL # 4.5 TH/MM3 (1.8-7.7); BASOPHIL # 0.1 TH/MM3 (0-0.2); BASOPHIL % 1.1 % (0.0-2.0); EOSINOPHIL # 0.1 TH/MM3 (0-0.4); EOSINOPHIL % 0.9 % (0.0-4.0); HEMATOCRIT 40.4 % (39.0-51.0); HEMO FLAGS DIFF FINAL; LYMPHOCYTE # 1.7 TH/MM3 (1.0-4.8); MEAN CELL VOLUME 94.3 FL (80.0-100.0); MEAN CORPUSCULAR HEMOGLOBIN 31.5 PG (27.0-34.0); MEAN CORPUSCULAR HGB CONC 33.5 % (32.0-36.0); MONO % 4.9 % (0.0-8.0); NEUT % 68.1 % (16.0-70.0); PLATELET COUNT 372 TH/MM3 (150-450); RED BLOOD COUNT 4.29 MIL/MM3 (4.50-5.90); RED CELL DISTRIBUTION WIDTH 12.6 % (11.6-17.2); WHITE BLOOD COUNT 6.7 TH/MM3 (4.0-11.0)
[2017-04-23 08:12] LABS: BICARBONATE 24.2 MEQ/L (21.0-32.0); MAGNESIUM 0.5 MG/DL (1.5-2.5)
[2017-04-23 08:14] LABS: POTASSIUM 4.4 MEQ/L (3.5-5.1)
[2017-04-23] MEDS: DOCUSATE SODIUM 50 MG/SENNA 8.6 MG TAB PO SCH ×3 (08:22→20:22)
[2017-04-23] MEDS: PANTOPRAZOLE SOD 20 MG DELAYED RELEASE TAB PO SCH (08:22)
[2017-04-23] MEDS: amLODIPine BESYLATE 5 MG TAB PO SCH (08:22)
[2017-04-23] MEDS: THIAMINE HCL 100 MG TAB PO SCH (08:22)
[2017-04-23] MEDS: AMOXICILLIN 875 MG TAB PO SCH ×2 (08:22→20:21)
--- NOTE | 2017-04-23 09:20 | MB ---
cc: BRI SIMON DATE OF CONSULTATION: 04/23/2017 HISTORY OF PRESENT ILLNESS A 77-year-old right-handed man with a history of hypertension, seizure as a child up until he was about 24 years old. He lives alone, has two beers a day, he does not take an aspirin a day. He has felt dizzy for the last month on and off. No vertigo. He has been imbalanced, evidently in and out of the hospital here. He had to have an indwelling Buchanan catheter placed. He staggered but did not fall. He was walking a few days ago at home with unsteady on his feet. He has not been seen by neurology. He was admitted this time on 04/19/2017 for dizziness, felt like his vision is a little blurry. MEDICATIONS Medications at home: Omeprazole, Norvasc. ALLERGIES NO KNOWN DRUG ALLERGIES. REVIEW OF SYSTEMS He denied any diabetes, hypercholesterolemia, [place], CABG, stent, angioplasty, atrial fibrillation, Coumadin, renal, hepatic or pulmonary disease, thyroid disease, lupus, ulcer, cancer, stroke. SOCIAL HISTORY Not a smoker, has two beers a day. Lives by herself. FAMILY HISTORY Negative for cancer, seizure, stroke. PAST MEDICAL HISTORY 1. Some urinary retention. 2. Hypertension. 3. GERD. 4. Osteoarthritis. 5. Supposed to have a TURP done. PHYSICAL EXAMINATION VITAL SIGNS: Afebrile, 97, 18. EKG showed sinus rhythm. NECK: No carotid or vertebral bruits. HEART: Regular rhythm. I do not detect a murmur. NEURO: Pupils are equal. Visual perez are full. He could count fingers well at a distance. Extraocular movements are intact but he does have some slight rotatory nystagmus on primary gaze, has some vertical component and also on lateral gaze bilaterally and downward gaze. Hallpike maneuver was negative bilaterally. Face is symmetric with normal sensation. Tongue was midline. There is no drift. He had normal strength in upper and lower extremities bilaterally. DTRs are 2+ and symmetric throughout. Toes downgoing bilaterally. There is no ankle clonus. Pinprick was intact throughout. He is not ataxic on [id number], [id number]. He can stand with minimal assist but he is very unsteady on his feet, tends to fall back. LABORATORY DATA CBC is normal. UA shows large amount of leukocyte esterase, white blood cell clumps. Urine drug screen positive for cocaine March 03 and also yesterday. Coags normal. Basic metabolic profile essentially normal. LFTs have been normal. Albumin is low at 2.5. CEA in 2005 was normal. PSA was 16 in 2005. Troponin was positive 03/04/2017. LFTs normal. Magnesium less than 0.3, calcium low, phosphorus normal. Coags normal. IMAGING STUDIES CAT scan of the brain was normal. Carotid ultrasound was negative. IMPRESSION Nystagmus. Imbalance. Possibly some slight opsoclonus. Paraneoplastic syndrome was considered versus a metabolic problem with the low magnesium, is being rechecked today. Will do an MRI of the brain, MRA [id number]. He tells me he has not had any hearing loss or hearing change or tinnitus. How much could be related to the cocaine use is unclear. He has been given thiamine here, although he says he only drinks two beers a day. A Wernicke's encephalopathy could be considered. Will check some additional blood work on him and do a CT scan on his chest. I note his PSA has been elevated in the past, will recheck that. Why his troponin was elevated on the last admission is unclear. We can recheck, also can check some standing blood pressures on him. MD FLORENCIA Barros/ANNEMARIE /8:13 AM /8:49 AM
[2017-04-23 09:40] LABS: BLOOD GAS BASE EXCESS -0.2 mmol/L (-2-2); BLOOD GAS CARBOXYHEMOGLOBIN 1.1 % (0-4); BLOOD GAS HCO3 23 mmol/L (22-26); BLOOD GAS METHEMOGLOBIN 0.7 % (0-2); BLOOD GAS O2 HGB SATURATION 93 % (90-100); BLOOD GAS OXYGEN CONTENT 18.5 Vol % (12.0-20.0); BLOOD GAS PCO2 33 mmHg (38-42); BLOOD GAS PO2 79 mmHg (61-120); BLOOD GAS TOTAL HGB 14.1 G/DL (12.0-16.0); CRITICAL VALUE NO; DRAW SITE RT RADIAL; FIO2 21 %; NUMBER OF ARTERIAL PUNCTURES 1; STAT YES; TEMP CORR TO 98.6; ULNAR PULSE PRESENT
[2017-04-23] MEDS: MAGNESIUM SULFATE 1 GM PREMIX 100 ML IV SCH ×2 (10:48→13:04)
[2017-04-23] MEDS ORDERED: GADODIAMIDE PF 287 MG/ML 10 ML VIAL (for RAD MRI) IVCONTRAST ONE (11:55)
--- NOTE | 2017-04-23 12:06 | RADRPT ---
EXAM DATE/TIME: 04/23/2017 11:28 [facility] COMPARISON: No previous studies available for comparison. INDICATIONS : Dizziness. MEDICAL HISTORY : Hypertension. Seizures. SURGICAL HISTORY : None. ENCOUNTER: Initial ACUITY: 1 day PAIN SCORE: 0/10 LOCATION: cranial Please note a normal MRA of the brain does not entirely exclude the possibility of a small aneurysm, nor the possibility of distal intracranial vessel disease. TECHNIQUE: 3D time of flight MRA was performed. Source images, multiplanar STS MIP, and 3D volume MIP reconstru ctions were reviewed. FINDINGS: Anterior circulation: Distal intracranial internal carotid arteries are patent with flow extending to the middle and anteri or cerebral arteries. There is no evidence for aneurysm, vessel truncation or stenosis, and no eviden ce for vascular malformation. Posterior circulation: Asymmetric distal vertebral arteries with dominant right vertebral artery. Flow extends to basilar ar giovana. left [employer]ER origin. Patent right posterior communicating artery. There is no evidence for an eurysm, vessel truncation or stenosis, and no evidence for vascular malformation. CONCLUSION: 1. Unremarkable MRA examination. No significant large vessel occlusions, flow-limiting stenosis or an eurysm. Sg López MD on April 23, 2017 at 12:00 Board Certified Radiologist. This report was verified electronically.
--- NOTE | 2017-04-23 12:27 | RADRPT ---
EXAM DATE/TIME: 04/23/2017 11:28 [facility] COMPARISON: MRA BRAIN W/O CONTRAST, April 23, 2017, 11:28. INDICATIONS : Dizziness. CONTRAST: 10 cc Omniscan (gadodiamide) IV GFR: Date: Apr 23 2017 MEDICAL HISTORY : Hypertension. Seizures. SURGICAL HISTORY : None. ENCOUNTER: Initial ACUITY: 1 day PAIN SCORE: 0/10 LOCATION: cranial TECHNIQUE: Multiplanar, multisequence MRI of the brain was performed both prior to and following the administrat ion of paramagnetic contrast. FINDINGS: CEREBRUM: The ventricles are normal for age. No evidence of midline shift, mass lesion, hemorrhage or acute in farction. No extraaxial fluid collections are seen. The pituitary gland and suprasellar cistern are normal in configuration. WHITE MATTER: There is increased signal seen throughout the cerebral white matter. POSTERIOR FOSSA: The cerebellum and brainstem are intact. The 4th ventricle is midline. The cerebellopontine angle is unremarkable. The cerebellar tonsils are normal in position. DIFFUSION IMAGING: There is a small focal area of minimally increased signal seen at the lateral aspect of the left cere bral peduncle on the flair images. This could be artifactual. EXTRACRANIAL: The visualized portions of the orbits are unremarkable. There is fluid in the right maxillary sinus. POST-CONTRAST: No abnormal areas of parenchymal or dural enhancement. No evidence of blood-brain barrier breakdown. CONCLUSION: 1. No definite acute abnormality seen. 2. Minimal smaller focal increased signal at the left cerebral peduncle on the diffusion weighted jillian ges. This could be artifactual. We correlated the patient has any symptoms potentially related to thi s area. 3. Diffuse demyelination likely secondary to small vessel scan change. 4. Fluid in the right maxillary sinus. Rodriguez De Leon MD on April 23, 2017 at 12:17 Board Certified Radiologist. This report was verified electronically.
[2017-04-23 14:57] LABS: FREE T4 1.83 NG/DL (0.76-1.46); LDL CHOLESTEROL 71 MG/DL (0-99); TOTAL PROTEIN SPE 6.7 GM/DL (6.0-7.6)
[2017-04-23 14:58] LABS: CREATINE KINASE 29 U/L (39-308)
--- NOTE | 2017-04-23 16:25 | HHI.PR ---
Subjective Remarks Patient seen this morning prior to MRI. Says he is feeling better than yesterday. Dizziness still present, however slightly improved. Denies any nausea or vomiting. Asked patient about cocaine abuse, reports most recent cocaine was one year ago. Objective Vital Signs Date Time Temp Pulse Resp B/P (MAP) Pulse Ox O2 Delivery O2 Flow Rate FiO2 04/23/17 12:00 97.9 84 17 114/68 (83) 95 04/23/17 08:00 97.6 88 16 111/70 (84) 95 04/23/17 08:00 85 04/23/17 04:00 96.3 97 18 126/81 (96) 100 04/23/17 00:00 96.7 110 18 127/78 (94) 100 04/22/17 20:45 113 04/22/17 20:00 97.7 93 18 117/75 (89) 97 04/22/17 18:01 94 17 130/82 (98) 95 132/89 (103) 131/67 (88) I/O 04/22/17 04/22/17 04/22/17 04/23/17 04/23/17 04/23/17 07:00 15:00 23:00 07:00 15:00 23:00 Intake Total 1779 ml 360 ml Output Total 450 ml Balance 1779 ml -90 ml Intake Oral 360 ml IV Total 1779 ml Output Urine Total 450 ml # Bowel Movements 0 Result Diagram: 04/23/1762604/23/17626 Objective Remarks GENERAL: pt sitting up in bed. Appears comfortable. SKIN: Warm and dry. HEAD: Normocephalic. EYES: No scleral icterus. No injection or drainage. Pupils equal round and reactive to light. Severe bilateral nystagmus, however has improved from yesterday. NECK: Supple, trachea midline. No JVD. CARDIOVASCULAR: Regular rate and rhythm without murmurs, gallops, or rubs. RESPIRATORY: Breath sounds equal bilaterally. No accessory muscle use. GASTROINTESTINAL: Abdomen soft, non-tender, nondistended. MUSCULOSKELETAL: No cyanosis, or edema. BACK: Nontender without obvious deformity. No CVA tenderness. A/P Assessment and Plan =====04/23/17 /Dizziness. Improving. //significant bilateral nystagmus on exam, slightly improved from yesterday -no significant tremor or other signs of alcohol withdrawal. Patient does drink about 2 drinks per day. Denies any history of withdrawal. Ataxia not typical of Warneke's. Nevertheless, will place on thiamine. = Appreciate neurology assistance. MRI pending. Labs pending. //Severe hypomagnesemia. Magnesium below detectable limits on 04/22. -Magnesium 0.5 today. Replaced again. Follow-up tomorrow. //Cocaine abuse. Patient denies any recent abuse. We'll discuss with him again tomorrow. // Severe sepsis, source is UTI: Blood culture negative so far. Urine culture growing E coli. Adjust antibiotics. Serum lactic acid now within normal limits. -04/22 Switched to amoxicillin by mouth. //UTI, urinary retention, indwelling Buchanan catheter: Appreciate urology consult. Buchanan catheter changed. -04/22. Switched to amoxicillin by mouth. //Acute kidney injury: Likely secondary to dehydration. IV fluids. Monitor BUN and creatinine. = Resolved. //Hypokalemia: Resolved after replacement. //Lactic acidosis: Resolved. //Hypertension: Continue Norvasc. //Dizziness, lightheadedness -Suspect this could be secondary to nystagmus, hypomagnesemia. DVT prophylaxis: Heparin. Discharge Planning Patient still with nystagmus, low magnesium. Possible discharge tomorrow if magnesium replaced and lightheadedness, nystagmus resolves. Stepan Mehta MD Apr 23, 2017 16:25
[2017-04-23 19:47] LABS: MAGNESIUM 1.2 MG/DL (1.5-2.5)
[2017-04-24] VITALS: BP 102/62; PULSE 89; RESP 18; TEMP 97.5; O2SAT 96
[2017-04-24 04:29] VITALS: BP 110/66; PULSE 96; RESP 18; TEMP 97.4; O2SAT 98
[2017-04-24] MEDS: HEPARIN SODIUM - SQ 10,000 UNITS/ML VIAL SQ SCH ×2 (05:00→15:29)
[2017-04-24 06:11] LABS: AUTOMATED NEUTROPHIL # 4.1 TH/MM3 (1.8-7.7); BASOPHIL # 0.1 TH/MM3 (0-0.2); BASOPHIL % 1.1 % (0.0-2.0); EOSINOPHIL # 0.2 TH/MM3 (0-0.4); EOSINOPHIL % 2.9 % (0.0-4.0); HEMATOCRIT 35.7 % (39.0-51.0); HEMO FLAGS DIFF FINAL; LYMPH % 23.7 % (9.0-44.0); LYMPHOCYTE # 1.5 TH/MM3 (1.0-4.8); MEAN CELL VOLUME 92.9 FL (80.0-100.0); MEAN CORPUSCULAR HEMOGLOBIN 31.2 PG (27.0-34.0); MEAN CORPUSCULAR HGB CONC 33.6 % (32.0-36.0); MONO % 7.2 % (0.0-8.0); NEUT % 65.1 % (16.0-70.0); PLATELET COUNT 345 TH/MM3 (150-450); RED BLOOD COUNT 3.85 MIL/MM3 (4.50-5.90); RED CELL DISTRIBUTION WIDTH 12.6 % (11.6-17.2); WHITE BLOOD COUNT 6.3 TH/MM3 (4.0-11.0)
[2017-04-24 06:26] LABS: BICARBONATE 26.2 MEQ/L (21.0-32.0); MAGNESIUM 1.1 MG/DL (1.5-2.5)
[2017-04-24 06:41] LABS: CALCIUM-PROTEIN CORRECTED 7.5 MG/DL (8.5-10.1)
--- NOTE | 2017-04-24 07:21 | HHI.PR ---
Objective Vital Signs Date Time Temp Pulse Resp B/P (MAP) Pulse Ox O2 Delivery O2 Flow Rate FiO2 04/24/17 04:29 97.4 96 18 110/66 (81) 98 04/24/17 00:00 97.5 89 18 102/62 (75) 96 04/23/17 20:00 96.4 100 18 103/60 (74) 95 107/67 (80) 108/67 (81) 04/23/17 19:50 91 04/23/17 16:00 97.9 94 18 106/68 (81) 96 04/23/17 12:00 97.9 84 17 114/68 (83) 95 04/23/17 08:00 97.6 88 16 111/70 (84) 95 04/23/17 08:00 85 I/O 04/23/17 04/23/17 04/23/17 04/24/17 04/24/17 04/24/17 07:00 15:00 23:00 07:00 15:00 23:00 Intake Total 360 ml 480 ml Output Total 450 ml 400 ml 200 ml Balance -90 ml 80 ml -200 ml Intake Oral 360 ml 480 ml Output Urine Total 450 ml 400 ml 200 ml # Bowel Movements 0 0 Result Diagram: 04/24/17 0540 04/24/17 0540 Objective Remarks still nystagmus Assessment and Plan Assessment and Plan imp mri i reviewed and nl x some central atrophy mra neg stand bp ok psa 34 defer to med team trop neg mg still low 1.2 us neg b12 ok on thiamine plan is ct chest and abd paraneoplatic screen pend will consider LP PT Isai Cerrato MD Apr 24, 2017 07:21
[2017-04-24] MEDS ORDERED: DIATRIZOATE MEGLUM/DIATRIZOATE SOD 9 ML CUP PO ONE (07:45)
[2017-04-24 08:00] VITALS: BP 115/66; PULSE 83; RESP 16; TEMP 97.7; O2SAT 94
[2017-04-24] MEDS: DOCUSATE SODIUM 50 MG/SENNA 8.6 MG TAB PO SCH ×2 (08:50→20:11)
[2017-04-24] MEDS: AMOXICILLIN 875 MG TAB PO SCH ×2 (09:00→20:11)
[2017-04-24] MEDS: amLODIPine BESYLATE 5 MG TAB PO SCH (09:00)
[2017-04-24] MEDS: THIAMINE HCL 100 MG TAB PO SCH (09:00)
[2017-04-24] MEDS: PANTOPRAZOLE SOD 20 MG DELAYED RELEASE TAB PO SCH (09:00)
[2017-04-24] MEDS: CYANOCOBALAMIN 1000 MCG/ML VIAL SQ SCH (09:02)
[2017-04-24] MEDS ORDERED: SODIUM CHLORID 0.9% 500 ML INJ 500 ML IV ONE (10:30)
[2017-04-24] MEDS ORDERED: POTASSIUM CHLORIDE 10 MEQ CONTROLLED RELEASE TAB PO ONE (10:45)
[2017-04-24 12:00] VITALS: BP 140/74; PULSE 104; RESP 18; TEMP 97.6; O2SAT 93
[2017-04-24] MEDS ORDERED: IOHEXOL 350 MG/ML 10 ML VIAL (for RAD DIAG) IVCONTRAST ONE (12:41)
--- NOTE | 2017-04-24 13:09 | RADRPT ---
EXAM DATE/TIME: 04/24/2017 12:29 [facility] COMPARISON: No previous studies available for comparison. INDICATIONS : Evaluate for mass. IV CONTRAST: 86 cc Omnipaque 350 (iohexol) IV ; Cumulative dose for multiple exams. RADIATION DOSE: 5.13 CTDIvol (mGy) ; Combined studies - Thorax/Abdomen/Pelvis MEDICAL HISTORY : Hypertension. SURGICAL HISTORY : TURP. ENCOUNTER: Initial ACUITY: 1 day PAIN SCALE: 0/10 LOCATION: chest TECHNIQUE: Volumetric scanning of the chest was performed. Using automated exposure control and adjustment of t he mA and/or kV according to patient size, radiation dose was kept as low as reasonably achievable to obtain optimal diagnostic quality images. DICOM format image data is available electronically for review and comparison. Follow-up recommendations for detected pulmonary nodules are based at a minimum on nodule size and pa tient risk factors according to Fleischner Society Guidelines. FINDINGS: LUNGS: There is no consolidation or pneumothorax. No concerning pulmonary nodule is visualized. PLEURA: There is no pleural thickening or pleural effusion. MEDIASTINUM: There is an air-filled proximal esophagus that disappears into the large well-circumscribed esophagea l mass. Endoscopy would be of benefit. AXILLAE: Within normal limits. No lymphadenopathy. SKELETAL: Within normal limits for patient age. MISCELLANEOUS: Please see the CT scan abdomen and pelvis CONCLUSION: Distal esophageal mass as described above no obvious metastatic disease to the chest. Soto Moore MD FACR on April 24, 2017 at 13:05 Board Certified Radiologist. This report was verified electronically.
--- NOTE | 2017-04-24 13:13 | RADRPT ---
EXAM DATE/TIME: 04/24/2017 12:29 [facility] COMPARISON: No previous studies available for comparison. INDICATIONS : Evaluate for mass. IV CONTRAST: 86 cc Omnipaque 350 (iohexol) IV ; Cumulative dose for multiple exams. ORAL CONTRAST: Prescribed oral contrast ingested. RADIATION DOSE: 5.13 CTDIvol (mGy) ; Combined studies - Thorax/Abdomen/Pelvis MEDICAL HISTORY : Hypertension. SURGICAL HISTORY : TURP. ENCOUNTER: Initial ACUITY: 1 day PAIN SCALE: 0/10 LOCATION: abdomen/pelvis TECHNIQUE: Volumetric scanning of the abdomen and pelvis was performed. Using automated exposure control and ad justment of the mA and/or kV according to patient size, radiation dose was kept as low as reasonably achievable to obtain optimal diagnostic quality images. DICOM format image data is available electro nically for review and comparison. FINDINGS: LOWER LUNGS: The visualized lower lungs are clear. LIVER: The liver is free of focal defects. There appear to be an calcification in the proximal common duct. There is no pipe hepatis adenopathy. SPLEEN: Normal size without lesion. PANCREAS: Within normal limits. KIDNEYS: Normal in size and shape. There is no mass, stone or hydronephrosis. ADRENAL GLANDS: Within normal limits. VASCULAR: There is no aortic aneurysm. BOWEL/MESENTERY: The stomach, small bowel, and colon demonstrate no acute abnormality. There is no free intraperitone al air or fluid. ABDOMINAL WALL: Within normal limits. RETROPERITONEUM: There is no lymphadenopathy. BLADDER: Bladder is decompressed by Buchanan does have enlarged thickened irregular wall. Cystoscopy is suggeste d. There is minimal obturator adenopathy on the left. REPRODUCTIVE: Within normal limits. INGUINAL: There is no lymphadenopathy or hernia. MUSCULOSKELETAL: Within normal limits for patient age. CONCLUSION: Thickwalled bladder with obturator adenopathy on the left Possible stone in the proximal common duct There is no adenopathy, portal adenopathy or metastatic disease. Soto Moore MD FACR on April 24, 2017 at 13:08 Board Certified Radiologist. This report was verified electronically.
--- NOTE | 2017-04-24 13:27 | HHI.PR ---
Subjective Remarks Patient seen this morning around 10 AM. Sitting up in chair. Says he is still dizzy, unsteady on his feet. No change from yesterday. denies any chest pain or shortness of breath. Patient was to cocaine use, making marijuana cigars dirty. Objective Vital Signs Date Time Temp Pulse Resp B/P (MAP) Pulse Ox O2 Delivery O2 Flow Rate FiO2 04/24/17 08:00 97.7 83 16 115/66 (82) 94 04/24/17 04:29 97.4 96 18 110/66 (81) 98 04/24/17 00:00 97.5 89 18 102/62 (75) 96 04/23/17 20:00 96.4 100 18 103/60 (74) 95 107/67 (80) 108/67 (81) 04/23/17 19:50 91 04/23/17 16:00 97.9 94 18 106/68 (81) 96 I/O 04/23/17 04/23/17 04/23/17 04/24/17 04/24/17 04/24/17 07:00 15:00 23:00 07:00 15:00 23:00 Intake Total 360 ml 480 ml Output Total 450 ml 400 ml 200 ml Balance -90 ml 80 ml -200 ml Intake Oral 360 ml 480 ml Output Urine Total 450 ml 400 ml 200 ml # Bowel Movements 0 0 Result Diagram: 04/24/17 0540 04/24/17 0540 Objective Remarks GENERAL: pt sitting up in bed. Appears comfortable. SKIN: Warm and dry. HEAD: Normocephalic. EYES: No scleral icterus. No injection or drainage. Pupils equal round and reactive to light. Severe bilateral nystagmus, no change from yesterday. NECK: Supple, trachea midline. No JVD. CARDIOVASCULAR: Regular rate and rhythm without murmurs, gallops, or rubs. RESPIRATORY: Breath sounds equal bilaterally. No accessory muscle use. GASTROINTESTINAL: Abdomen soft, non-tender, nondistended. MUSCULOSKELETAL: No cyanosis, or edema. BACK: Nontender without obvious deformity. No CVA tenderness. A/P Assessment and Plan =====04/23/17 //Hypokalemia. Potassium 3.0. Affected by mg.replace potassium. Recheck tomorrow /Dizziness. //significant bilateral nystagmus on exam, no change from yesterday. -no significant tremor or other signs of alcohol withdrawal. Patient does drink about 2 drinks per day. Denies any history of withdrawal. Ataxia not typical of Warneke's. Nevertheless, cont on thiamine. = Appreciate neurology assistance. MRI pending. Labs pending. //Severe hypomagnesemia. -Magnesium below detectable limits on 04/22. -Magnesium 1.1 today. Replaced again. Follow-up needed today //Cocaine abuse. -Patient admits to making his marijuana cigars dirty. Counseled on cocaine cessation. Patient agrees to stop cocaine. // Severe sepsis. resolved. source is UTI: Blood culture negative so far. Urine culture growing E coli. Adjust antibiotics. Serum lactic acid now within normal limits. -04/22 Switched to amoxicillin by mouth. /Dizziness. //significant bilateral nystagmus on exam, no change from yesterday. -no significant tremor or other signs of alcohol withdrawal. Patient does drink about 2 drinks per day. Denies any history of withdrawal. Ataxia not typical of Warneke's. Nevertheless, cont on thiamine. = Appreciate neurology assistance. MRI pending. Labs pending. //UTI, urinary retention, indwelling Buchanan catheter: Appreciate urology consult. Buchanan catheter changed. -04/22. Switched to amoxicillin by mouth. //Acute kidney injury: Likely secondary to dehydration. IV fluids. Monitor BUN and creatinine. = Resolved. //Hypokalemia: Resolved after replacement. //Lactic acidosis: Resolved. //Hypertension: Continue Norvasc. //Cocaine abuse. -Patient admits to making his marijuana cigars dirty. Counseled on cocaine cessation. Patient agrees to stop cocaine. //Dizziness, lightheadedness -Suspect this could be secondary to nystagmus, hypomagnesemia. as above. DVT prophylaxis: Heparin. Discharge Planning Patient still with nystagmus, low magnesium. Possible discharge tomorrow if magnesium replaced and lightheadedness, nystagmus resolves. = May need SNF. PT following. Appreciate assistance. Stepan Mehta MD Apr 24, 2017 13:27
[2017-04-24 14:29] LABS: ANA SCREEN POS (NEG)
[2017-04-24] MEDS: MAGNESIUM SULFATE 1 GM PREMIX 100 ML IV SCH ×2 (15:11→21:50)
[2017-04-24] MEDS: SODIUM CHLOR 0.9% 1000 ML INJ 1,000 ML IV SCH (15:20)
[2017-04-24 16:00] VITALS: BP 130/74; PULSE 88; RESP 16; TEMP 97.9; O2SAT 94
[2017-04-24 20:00] VITALS: BP_SYST 122; BP_SYST 125; BP_SYST 135; BP_SYST 137; BP_DIAS 66; BP_DIAS 71; BP_DIAS 73; BP_DIAS 79; PULSE 111; PULSE 119; PULSE 92; PULSE 97; RESP 18; TEMP 98.2; O2SAT 100; O2SAT 95; O2SAT 96
[2017-04-24 22:17] LABS: ALBUMIN SPE 3.17 GM/DL (3.50-5.00); ALPHA 1 GLOBULIN 0.25 GM/DL (0.11-0.29); ALPHA 2 GLOBULIN 0.84 GM/DL (0.22-1.00); BETA GLOBULINS (SPE) 0.86 GM/DL (0.53-1.03)
[2017-04-25] VITALS (7 sets, daily range): BP systolic 125–154; BP diastolic 71–84; PULSE 83–111; RESP 17–18; TEMP 95.1–97; O2SAT 91–100
[2017-04-25] MEDS: HEPARIN SODIUM - SQ 10,000 UNITS/ML VIAL SQ SCH ×2 (06:52→14:39)
[2017-04-25] MEDS: SODIUM CHLOR 0.9% 1000 ML INJ 1,000 ML IV SCH ×2 (06:53→14:37)
--- NOTE | 2017-04-25 07:32 | HHI.PR ---
Subjective Remarks not dizzy now Objective Vital Signs Date Time Temp Pulse Resp B/P (MAP) Pulse Ox O2 Delivery O2 Flow Rate FiO2 04/25/17 04:00 97.0 85 18 125/76 (92) 97 04/25/17 00:00 96.5 85 18 127/71 (89) 100 04/24/17 20:00 119 135/79 (97) 95 04/24/17 20:00 98.2 97 18 137/66 (89) 96 04/24/17 20:00 111 125/73 (90) 100 04/24/17 20:00 92 122/71 (88) 100 04/24/17 16:00 97.9 88 16 130/74 (92) 94 04/24/17 12:00 97.6 104 18 140/74 (96) 93 04/24/17 08:00 97.7 83 16 115/66 (82) 94 I/O 04/24/17 04/24/17 04/24/17 04/25/17 04/25/17 04/25/17 07:00 15:00 23:00 07:00 15:00 23:00 Intake Total 460 ml Output Total 200 ml 650 ml 800 ml Balance -200 ml -190 ml -800 ml Intake Oral 360 ml IV Total 100 ml Output Urine Total 200 ml 650 ml 800 ml # Bowel Movements 2 Result Diagram: 04/24/17 0540 04/24/17 0540 Objective Remarks still nystagmus not dizzy Assessment and Plan Assessment and Plan imp mri i reviewed and nl x some central atrophy mra neg stand bp ok psa 34 defer to med team trop neg mg nl 1.8 us neg b12 ok on thiamine plan is ct chest and abd bladder thick adn esoph mass will defer to med team on that paraneoplatic screen pend PT oob spep abn check ipep upep Isai Vasquez MD Apr 25, 2017 07:32
[2017-04-25] MEDS: DOCUSATE SODIUM 50 MG/SENNA 8.6 MG TAB PO SCH ×2 (09:00→19:49)
[2017-04-25] MEDS: amLODIPine BESYLATE 5 MG TAB PO SCH (10:22)
[2017-04-25] MEDS: THIAMINE HCL 100 MG TAB PO SCH (10:23)
[2017-04-25] MEDS: CYANOCOBALAMIN 1000 MCG/ML VIAL SQ SCH (10:23)
[2017-04-25] MEDS: PANTOPRAZOLE SOD 20 MG DELAYED RELEASE TAB PO SCH (10:23)
[2017-04-25] MEDS: AMOXICILLIN 875 MG TAB PO SCH ×2 (10:23→19:48)
[2017-04-25 11:17] LABS: BICARBONATE 26.1 MEQ/L (21.0-32.0); POTASSIUM 3.7 MEQ/L (3.5-5.1)
--- NOTE | 2017-04-25 12:23 | HHI.PR ---
Subjective Remarks Patient seen this morning around 10 AM. Says he is feeling all right. He says the dizziness is improved, however still unable to stand without assistance. Objective Vital Signs Date Time Temp Pulse Resp B/P (MAP) Pulse Ox O2 Delivery O2 Flow Rate FiO2 04/25/17 08:00 97.0 83 17 130/75 (93) 99 04/25/17 04:00 97.0 85 18 125/76 (92) 97 04/25/17 00:00 96.5 85 18 127/71 (89) 100 04/24/17 20:00 119 135/79 (97) 95 04/24/17 20:00 98.2 97 18 137/66 (89) 96 04/24/17 20:00 111 125/73 (90) 100 04/24/17 20:00 92 122/71 (88) 100 04/24/17 16:00 97.9 88 16 130/74 (92) 94 I/O 04/24/17 04/24/17 04/24/17 04/25/17 04/25/17 04/25/17 07:00 15:00 23:00 07:00 15:00 23:00 Intake Total 460 ml 1000 ml Output Total 200 ml 650 ml 800 ml Balance -200 ml -190 ml 200 ml Intake Oral 360 ml IV Total 100 ml 1000 ml Output Urine Total 200 ml 650 ml 800 ml # Bowel Movements 2 Result Diagram: 04/24/17 0540 04/25/17 0956 Objective Remarks GENERAL: pt sitting up in bed. Appears comfortable. Upon standing, patient stumbles back to sit on bed. SKIN: Warm and dry. HEAD: Normocephalic. EYES: No scleral icterus. No injection or drainage. Pupils equal round and reactive to light. Severe bilateral nystagmus, no change from yesterday. NECK: Supple, trachea midline. No JVD. CARDIOVASCULAR: Regular rate and rhythm without murmurs, gallops, or rubs. RESPIRATORY: Breath sounds equal bilaterally. No accessory muscle use. GASTROINTESTINAL: Abdomen soft, non-tender, nondistended. MUSCULOSKELETAL: No cyanosis, or edema. BACK: Nontender without obvious deformity. No CVA tenderness. A/P Assessment and Plan =====04/25/17 //Hypokalemia. Resolved after replacement. /Dizziness. //significant bilateral nystagmus on exam, no change from yesterday. -no significant tremor or other signs of alcohol withdrawal. Patient does drink about 2 drinks per day. Denies any history of withdrawal. Ataxia not typical of Warneke's. Nevertheless, cont on thiamine. = Appreciate neurology assistance. MRI with no acute abnormality. LIZZIE positive. 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 Consult gastroenterology. //Thick-walled bladder with all. Her abnormality on the left. May need cystoscopy. Reconsult urology. //Severe hypomagnesemia. -Years to have resolved after replacement. We'll continue to monitor for 1 more day. // Severe sepsis. resolved. source is UTI: Blood culture negative so far. Urine culture growing E coli. Adjust antibiotics. Serum lactic acid now within normal limits. -04/22 Switched to amoxicillin by mouth. Finish amoxicillin on 04/29 /Dizziness. //significant bilateral nystagmus on exam, no change from yesterday. -no significant tremor or other signs of alcohol withdrawal. Patient does drink about 2 drinks per day. Denies any history of withdrawal. Ataxia not typical of Warneke's. Nevertheless, cont on thiamine. = Appreciate neurology assistance. MRI pending. Labs pending. //UTI, urinary retention, indwelling Buchanan catheter: Appreciate urology consult. Buchanan catheter changed. -04/22. Switched to amoxicillin by mouth. //Acute kidney injury: Likely secondary to dehydration. IV fluids. Monitor BUN and creatinine. = Resolved. //Hypokalemia: Resolved after replacement. //Lactic acidosis: Resolved. //Hypertension: Continue Norvasc. //Cocaine abuse. -Patient admits to making his marijuana cigars dirty. Counseled on cocaine cessation. Patient agrees to stop cocaine. //Dizziness, lightheadedness -Suspect this could be secondary to nystagmus, hypomagnesemia. as above. DVT prophylaxis: Heparin. Discharge Planning Patient still with nystagmus, inability to walk unassisted. -Undergoing gastroenterology and neurology workup for possible paraneoplastic cause -Completes amoxicillin by mouth 04/29 = will need SNF. PT following. Appreciate assistance. Stepan Mehta MD Apr 25, 2017 12:23
--- NOTE | 2017-04-25 12:52 | PD.CONS ---
HPI History of Present Illness This is a 77 year old male who presented to the emergency room for evaluation of intermittent dizziness x 1 month. He was found to have severe urosepsis and admitted for further evaluation and treatment. He was evaluated by urology who recommended keeping silva catheter for urinary retention. He was also noted to have some nystagmus and neurology was consulted and he was evaluated with MRI ( unremarkable other than central atrophy) and MRA(negative). During his workup, he underwent CT thorax (04/24/17) and this revealed distal esophageal mass as described above no obvious metastatic disease to the chest. He was also evaluated with CT scan abdomen and pelvis (04/24/17)---> thick walled bladder with obturator adenopathy on the left, possible stone in the proximal common duct, there is no adenopathy, portal adenopathy, or metastatic disease. GI has been consulted for evaluation of esophageal mass seen on CT thorax. The patient has never had an EGD. He does have a long history of GERD and takes Omeprazole at home. He states that as long as he takes this, his GERD is well controlled. However, if he skips a dose, he will have significant reflux/ heartburn, as well as nausea and vomiting. He does report a decreased appetite and weight loss, but is not able to quantify or tell me over what time period. He denies abdominal pain. He denies bowel changes, melena, or hematochezia. He drinks 2 beers daily and smokes marijuana. He denies cocaine use, but was positive on his toxicology screen. (Maddison Guzman) [facility] Past Medical History GERD Hypertension Urinary retention Osteoarthritis Polysubstance abuse Past Surgical History Cystoscopy (Maddison Guzman) Coded Allergies: No Known Allergies (Verified , 04/19/17) Medications Allergies Coded Allergies Type Severity Reaction Last Updated Verified No Known Allergies 04/19/17 Yes Active Scripts Medications Dose Route/Sig Max Daily Dose Days Date Category Amoxicillin 875 Mg Tab 875 Mg PO BID 7 04/22/17 Rx Omeprazole 20 Mg Tab 20 Mg PO DAILY 04/19/17 Reported Norvasc (Amlodipine Besylate) 5 Mg Tab 5 Mg PO DAILY 03/08/17 Rx Family History Denies any family history of esophageal, gastric, or colorectal cancer. Social History Denies tobacco use. Past tobacco use x 40 years ago. + MJ Denies cocaine, was positive on toxicology screen 2 beers per day (Maddison Guzman JADE) Review of Systems Constitutional: COMPLAINS OF: Fatigue, Weight loss, Change in appetite, DENIES : Fever, Chills Respiratory: DENIES: Cough Cardiovascular: DENIES: Chest pain Gastrointestinal: COMPLAINS OF: Nausea, Vomiting, Heartburn, DENIES: Abdominal pain, Black stools, Bloody stools, Constipation, Diarrhea Hematologic/lymphatic: DENIES: Bruising Neurologic: DENIES: Headache Psychiatric: DENIES: Confusion (Maddison Guzman JADE) GI Exam Vitals I&O Vital Signs Date Time Temp Pulse Resp B/P (MAP) Pulse Ox O2 Delivery O2 Flow Rate FiO2 04/25/17 08:00 97.0 83 17 130/75 (93) 99 04/25/17 04:00 97.0 85 18 125/76 (92) 97 04/25/17 00:00 96.5 85 18 127/71 (89) 100 04/24/17 20:00 119 135/79 (97) 95 04/24/17 20:00 98.2 97 18 137/66 (89) 96 04/24/17 20:00 111 125/73 (90) 100 04/24/17 20:00 92 122/71 (88) 100 04/24/17 16:00 97.9 88 16 130/74 (92) 94 I/O 04/24/17 04/24/17 04/24/17 04/25/17 04/25/17 04/25/17 07:00 15:00 23:00 07:00 15:00 23:00 Intake Total 460 ml 1000 ml Output Total 200 ml 650 ml 800 ml Balance -200 ml -190 ml 200 ml Intake Oral 360 ml IV Total 100 ml 1000 ml Output Urine Total 200 ml 650 ml 800 ml # Bowel Movements 2 Imaging Last Impressions Chest CT 04/24/17 0000 Signed Impressions: Service Date/Time: Monday, April 24, 2017 12:29 - CONCLUSION: Distal esophageal mass as described above no obvious metastatic disease to the chest. Soto Moore MD FACR Abdomen/Pelvis CT 04/24/17 0000 Signed Impressions: Service Date/Time: Monday, April 24, 2017 12:29 - CONCLUSION: Thickwalled bladder with obturator adenopathy on the left Possible stone in the proximal common duct There is no adenopathy, portal adenopathy or metastatic disease. Soto Moore MD FACR Head Magnetic Resonance Angiography 04/23/17818 Signed Impressions: Service Date/Time: Sunday, April 23, 2017 11:28 - CONCLUSION: 1. Unremarkable MRA examination. No significant large vessel occlusions, flow-limiting stenosis or aneurysm. Sg López MD Brain MRI 04/23/17818 Signed Impressions: Service Date/Time: Sunday, April 23, 2017 11:28 - CONCLUSION: 1. No definite acute abnormality seen. 2. Minimal smaller focal increased signal at the left cerebral peduncle on the diffusion weighted images. This could be artifactual. We correlated the patient has any symptoms potentially related to this area. 3. Diffuse demyelination likely secondary to small vessel scan change. 4. Fluid in the right maxillary sinus. Rodriguez De Leon MD Head CT 04/22/17 0000 Signed Impressions: Service Date/Time: Saturday, April 22, 2017 21:41 - CONCLUSION: 1. No acute intracranial abnormality. 2. Atrophy and chronic white matter changes. 3. Apparent right maxillary sinus disease. Rodriguez Donald MD Carotid Artery Ultrasound 04/22/17 0000 Signed Impressions: Service Date/Time: Saturday, April 22, 2017 18:00 - CONCLUSION: Within normal limits. No significant plaque or narrowing of the carotids. Rodriguez Donald MD Chest X-Ray 04/19/17 0000 Signed Impressions: Service Date/Time: Wednesday, April 19, 2017 11:23 - CONCLUSION: No acute disease. Bert Jo MD Laboratory Test 04/24/17 20:08 04/25/17 09:56 Magnesium Level 1.8 MG/DL 2.0 MG/DL Blood Urea Nitrogen 10 MG/DL Creatinine 1.00 MG/DL Random Glucose 73 MG/DL Albumin 2.9 GM/DL Calcium Level 8.1 MG/DL Phosphorus Level 2.2 MG/DL Sodium Level 141 MEQ/L Potassium Level 3.7 MEQ/L Chloride Level 107 MEQ/L Carbon Dioxide Level 26.1 MEQ/L Anion Gap 8 MEQ/L Estimat Glomerular Filtration Rate 88 ML/MIN Date/Time Source Procedure Growth Status 04/19/17 13:45 Blood Peripheral Aerobic Blood Culture - Final NO GROWTH IN 5 DAYS Complete 04/19/17 13:45 Blood Peripheral Anaerobic Blood Culture - Final NO GROWTH IN 5 DAYS Complete 04/19/17 11:55 Urine Clean Catch Urine Culture - Final Escherichia Coli Complete Physical Examination HEENT: Normocephalic; atraumatic; no jaundice. CHEST: CTA CARDIAC: RRR ABDOMEN: Soft, nondistended, nontender; no hepatosplenomegaly; bowel sounds are present in all four quadrants. EXTREMITIES: No clubbing, cyanosis, or edema. SKIN: Normal; no rash; no jaundice. DROP FORGER: No focal deficits; alert and oriented times three. (Maddison Guzman) Assessment and Plan Plan ASSESSMENT: - Abnormal imaging with esophageal mass noted on CT thorax. CT thorax (04/24/17 ) and this revealed distal esophageal mass as described above no obvious metastatic disease to the chest. He was also evaluated with CT scan abdomen and pelvis (04/24/17 )---> thick walled bladder with obturator adenopathy on the left, possible stone in the proximal common duct, there is no adenopathy, portal adenopathy, or metastatic disease. GI has been consulted for evaluation of esophageal mass seen on CT thorax. The patient has never had an EGD. GERD and takes Omeprazole at home. + decreased appetite and weight loss, but is not able to quantify or tell me over what time period. - Questionable choledocholithiasis. CT abdomen and pelvis with questionable CBD stone. LFT normal. No n/v/pain. - Urosepsis, UTI, Urinary retention. S/P Silva catheter placement. S/P evaluation. Cx E. Coli. Amoxicillin. - Nystagmus. Neurology following. MRI (unremarkable other than central atrophy ) and MRA(negative). Per neurology. - Hypokalemia, PSA, per attending. PLAN: - Plan for EGD tomorrow - Obtain consents - NPO after MN - CBC, LFT in am - Will d/w Dr. Hardy questionable cbd stone on CT to see if further imaging needed prior to EGD - Supportive care - Further recommendations to follow based on results of above - Pt seen and examined by Dr. 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
--- NOTE | 2017-04-25 13:01 | HHI.PR ---
Addendum to Inpatient Note Addendum Reason: Additional Documentation Additional Information Patient already evaluated bu Urology 5 days ago. Patient had a cystoscopy [address] Augsutin. Will need TURP as outpatient. No further Urological intervention required during this admission. Jg Sarkar MD Apr 25, 2017 13:01
[2017-04-25] MEDS ORDERED: GADODIAMIDE PF 287 MG/ML 5 ML VIAL (for RAD MRI) IVCONTRAST ONE (19:31)
--- NOTE | 2017-04-25 20:20 | RADRPT ---
EXAM DATE/TIME: 04/25/2017 19:10 [facility] COMPARISON: CT ABDOMEN & PELVIS W CONTRAST, April 24, 2017, 12:29. INDICATIONS : Obstruction. CONTRAST: 12 cc Omniscan (gadodiamide) IV MEDICAL HISTORY : Hypertension. Seizures. SURGICAL HISTORY : None. ENCOUNTER: Subsequent ACUITY: 3 day PAIN SCORE: 5/10 LOCATION: Abdomen. TECHNIQUE: Multiplanar, multisequence magnetic resonance imaging of the abdomen was performed. High-resolution 3D dataset was utilized to reconstruct maximum-intensity projection (MIP) images. FINDINGS: There are filling defects within the expected region of the neck of the gallbladder and cystic duct c onsistent with cholelithiasis. Minimal gallbladder wall thickening is noted. If there is clinical c oncern for acute cholecystitis a hepatobiliary scan may be helpful to confirm cystic duct obstruction . No filling defect is noted within the common bile duct or common hepatic duct. There are mild sca ttered strictures within the central intrahepatic ducts raising the possibility of primary sclerosing cholangitis. No significant biliary ductal dilatation is noted. The pancreatic duct is normal. Ev aluation of the stomach and distal esophagus is suboptimal on this examination. If there is clinical concern for esophageal mass upper endoscopy would be helpful for further evaluation of this patient. Diffuse urinary bladder wall thickening is again noted. A Buchanan catheter is noted within the urina ry bladder. Debris is noted within the urinary bladder also. Underlying bladder wall mass is diffic ult to rule out on the basis of this examination. No hepatic mass is noted. The spleen is unremarkable. The pancreas is also unremarkable without foca l mass. The adrenal glands are normal bilaterally. The abdominal aorta and inferior vena cava are un remarkable. No ascites is noted. No bowel obstruction is noted. Scattered colonic diverticulosis is noted. CONCLUSION: 1. Filling defects within the expected region of the gallbladder neck and/or cystic duct. Minimal ga llbladder wall thickening is noted. If there is clinical concern for acute cholecystitis a hepatobil iary scan may be helpful to rule out cystic duct obstruction. 2. Multiple mild focal strictures within the central intrahepatic biliary system raising the possibil ity of primary sclerosing cholangitis. Clinical correlation is recommended. 3. No evidence of choledocholithiasis. 4. Diffuse urinary bladder wall thickening which is stable compared to the previous examination. Int ernal debris is also noted. Small bladder wall mass cannot be ruled out on the basis of this examina tion. 5. Suboptimal evaluation of the stomach and distal esophagus on this examination. If there is clinica l concern for a distal esophageal mass upper endoscopy would be more sensitive. 6. Uncomplicated colonic diverticulosis. Bert Jo MD on April 25, 2017 at 20:02 Board Certified Radiologist. This report was verified electronically.
[2017-04-26] VITALS (8 sets, daily range): BP systolic 77–166; BP diastolic 71–94; PULSE 94–112; RESP 16–18; TEMP 96.6–97.9; O2SAT 94–100
[2017-04-26] MEDS ORDERED: LACTATED RINGER'S 1000 ML IV PRN (02:15)
[2017-04-26] MEDS: HEPARIN SODIUM - SQ 10,000 UNITS/ML VIAL SQ SCH ×2 (04:00→16:51)
[2017-04-26] MEDS: SODIUM CHLOR 0.9% 1000 ML INJ 1,000 ML IV SCH ×2 (05:07→16:46)
[2017-04-26 07:10] LABS: AUTOMATED NEUTROPHIL # 3.7 TH/MM3 (1.8-7.7); BASOPHIL # 0.1 TH/MM3 (0-0.2); BASOPHIL % 1.1 % (0.0-2.0); EOSINOPHIL # 0.3 TH/MM3 (0-0.4); EOSINOPHIL % 4.1 % (0.0-4.0); HEMATOCRIT 36.7 % (39.0-51.0); HEMO FLAGS DIFF FINAL; LYMPH % 28.6 % (9.0-44.0); LYMPHOCYTE # 1.9 TH/MM3 (1.0-4.8); MEAN CELL VOLUME 95.2 FL (80.0-100.0); MEAN CORPUSCULAR HEMOGLOBIN 31.2 PG (27.0-34.0); MEAN CORPUSCULAR HGB CONC 32.8 % (32.0-36.0); MONO % 10.1 % (0.0-8.0); NEUT % 56.1 % (16.0-70.0); PLATELET COUNT 353 TH/MM3 (150-450); RED BLOOD COUNT 3.86 MIL/MM3 (4.50-5.90); RED CELL DISTRIBUTION WIDTH 12.9 % (11.6-17.2); WHITE BLOOD COUNT 6.7 TH/MM3 (4.0-11.0)
--- NOTE | 2017-04-26 07:38 | HHI.PR ---
Subjective Remarks imbalance for 6 weeks Objective Vital Signs Date Time Temp Pulse Resp B/P (MAP) Pulse Ox O2 Delivery O2 Flow Rate FiO2 04/26/17 04:00 97.5 94 18 166/92 (116) 100 04/26/17 00:00 96.6 103 18 147/79 (101) 97 04/25/17 20:03 102 04/25/17 20:00 109 18 136/82 (100) 99 04/25/17 20:00 96.6 99 18 154/83 (106) 100 04/25/17 20:00 111 18 141/80 (100) 95 04/25/17 16:00 95.2 90 18 136/84 (101) 96 04/25/17 12:00 95.1 88 18 149/82 (104) 91 04/25/17 08:00 97.0 83 17 130/75 (93) 99 156/73 (100) 151/72 (98) I/O 04/25/17 04/25/17 04/25/17 04/26/17 04/26/17 04/26/17 07:00 15:00 23:00 07:00 15:00 23:00 Intake Total 1000 ml 1331 ml Output Total 800 ml 1100 ml 3000 ml Balance 200 ml 231 ml -3000 ml Intake Oral 600 ml IV Total 1000 ml 731 ml Output Urine Total 800 ml 1100 ml 3000 ml # Bowel Movements 0 Result Diagram: 04/26/17 0550 04/25/17 0956 Objective Remarks still nystagmus but less gait improved independently walked yest Assessment and Plan Assessment and Plan imp mri i reviewed and nl x some central atrophy mra neg stand bp ok psa 34 defer to med team trop neg mg nl 1.8 us neg b12 ok on thiamine plan is ct chest and abd bladder thick adn esoph mass will defer to med team on that paraneoplatic screen pend PT oob spep abn check ipep upep 04/26/17 looks better gait and nyst i think considering all prudent to do LP check hiv egd labs pend ipep/paraneo better though can silva be dced? standing bp ok Isai Vasquez MD Apr 26, 2017 07:38
[2017-04-26 07:40] LABS: BICARBONATE 25.3 MEQ/L (21.0-32.0); MAGNESIUM 1.6 MG/DL (1.5-2.5); POTASSIUM 3.5 MEQ/L (3.5-5.1)
[2017-04-26 07:42] LABS: INDIRECT BILIRUBIN 0.2 MG/DL (0.0-0.8); TOTAL BILIRUBIN ADULT 0.3 MG/DL (0.2-1.0)
[2017-04-26] MEDS: DOCUSATE SODIUM 50 MG/SENNA 8.6 MG TAB PO SCH ×2 (09:56→20:23)
[2017-04-26] MEDS: CYANOCOBALAMIN 1000 MCG/ML VIAL SQ SCH (09:56)
[2017-04-26] MEDS: amLODIPine BESYLATE 5 MG TAB PO SCH (09:56)
[2017-04-26] MEDS: AMOXICILLIN 875 MG TAB PO SCH ×2 (09:56→20:23)
[2017-04-26] MEDS: THIAMINE HCL 100 MG TAB PO SCH (09:56)
[2017-04-26] MEDS: PANTOPRAZOLE SOD 20 MG DELAYED RELEASE TAB PO SCH (09:56)
--- NOTE | 2017-04-26 10:08 | HHI.GIFU ---
Subjective Remarks Resting in bed. Going for LP today. Denies fevers, chills, abdominal pain. Still having dizziness. (Maddison Guzman) Objective Vitals I&O Vital Signs Date Time Temp Pulse Resp B/P (MAP) Pulse Ox O2 Delivery O2 Flow Rate FiO2 04/26/17 08:00 97.5 95 16 124/71 (88) 100 128/77 (94) 130/83 (99) 04/26/17 04:00 97.5 94 18 166/92 (116) 100 04/26/17 00:00 96.6 103 18 147/79 (101) 97 04/25/17 20:03 102 04/25/17 20:00 109 18 136/82 (100) 99 04/25/17 20:00 96.6 99 18 154/83 (106) 100 04/25/17 20:00 111 18 141/80 (100) 95 04/25/17 16:00 95.2 90 18 136/84 (101) 96 04/25/17 12:00 95.1 88 18 149/82 (104) 91 I/O 04/25/17 04/25/17 04/25/17 04/26/17 04/26/17 04/26/17 07:00 15:00 23:00 07:00 15:00 23:00 Intake Total 1000 ml 1331 ml 558 ml Output Total 800 ml 1100 ml 3000 ml Balance 200 ml 231 ml -2442 ml Intake Oral 600 ml IV Total 1000 ml 731 ml 558 ml Output Urine Total 800 ml 1100 ml 3000 ml # Bowel Movements 0 Laboratory Laboratory Tests Test 04/25/17 09:56 04/26/17 05:50 Blood Urea Nitrogen 10 6 Creatinine 1.00 0.96 Random Glucose 73 68 Albumin 2.9 2.7 Calcium Level 8.1 8.4 Phosphorus Level 2.2 2.5 Magnesium Level 2.0 1.6 Sodium Level 141 141 Potassium Level 3.7 3.5 Chloride Level 107 109 Carbon Dioxide Level 26.1 25.3 Anion Gap 8 7 Estimat Glomerular Filtration Rate 88 93 White Blood Count 6.7 Red Blood Count 3.86 Hemoglobin 12.1 Hematocrit 36.7 Mean Corpuscular Volume 95.2 Mean Corpuscular Hemoglobin 31.2 Mean Corpuscular Hemoglobin Concent 32.8 Red Cell Distribution Width 12.9 Platelet Count 353 Mean Platelet Volume 7.1 Neutrophils (%) (Auto) 56.1 Lymphocytes (%) (Auto) 28.6 Monocytes (%) (Auto) 10.1 Eosinophils (%) (Auto) 4.1 Basophils (%) (Auto) 1.1 Neutrophils # (Auto) 3.7 Lymphocytes # (Auto) 1.9 Monocytes # (Auto) 0.7 Eosinophils # (Auto) 0.3 Basophils # (Auto) 0.1 CBC Comment DIFF FINAL Differential Comment Total Protein 7.2 Alkaline Phosphatase 79 Aspartate Amino Transf (AST/SGOT) 27 Alanine Aminotransferase (ALT/SGPT) 20 Total Bilirubin 0.3 Direct Bilirubin 0.1 Indirect Bilirubin 0.2 Date/Time Source Procedure Growth Status 04/19/17 13:45 Blood Peripheral Aerobic Blood Culture - Final NO GROWTH IN 5 DAYS Complete 04/19/17 13:45 Blood Peripheral Anaerobic Blood Culture - Final NO GROWTH IN 5 DAYS Complete 04/19/17 11:55 Urine Clean Catch Urine Culture - Final Escherichia Coli Complete Imaging Last Impressions Cholangiopancreatography MRI 04/25/17 0000 Signed Impressions: Service Date/Time: Tuesday, April 25, 2017 19:10 - CONCLUSION: 1. Filling defects within the expected region of the gallbladder neck and/or cystic duct. Minimal gallbladder wall thickening is noted. If there is clinical concern for acute cholecystitis a hepatobiliary scan may be helpful to rule out cystic duct obstruction. 2. Multiple mild focal strictures within the central intrahepatic biliary system raising the possibility of primary sclerosing cholangitis. Clinical correlation is recommended. 3. No evidence of choledocholithiasis. 4. Diffuse urinary bladder wall thickening which is stable compared to the previous examination. Internal debris is also noted. Small bladder wall mass cannot be ruled out on the basis of this examination. 5. Suboptimal evaluation of the stomach and distal esophagus on this examination. If there is clinical concern for a distal esophageal mass upper endoscopy would be more sensitive. 6. Uncomplicated colonic diverticulosis. Bert Jo MD Chest CT 04/24/17 0000 Signed Impressions: Service Date/Time: Monday, April 24, 2017 12:29 - CONCLUSION: Distal esophageal mass as described above no obvious metastatic disease to the chest. Soto Moore MD FACR Abdomen/Pelvis CT 04/24/17 0000 Signed Impressions: Service Date/Time: Monday, April 24, 2017 12:29 - CONCLUSION: Thickwalled bladder with obturator adenopathy on the left Possible stone in the proximal common duct There is no adenopathy, portal adenopathy or metastatic disease. Soto Moore MD FACR Head Magnetic Resonance Angiography 04/23/17818 Signed Impressions: Service Date/Time: Sunday, April 23, 2017 11:28 - CONCLUSION: 1. Unremarkable MRA examination. No significant large vessel occlusions, flow-limiting stenosis or aneurysm. Sg López MD Brain MRI 04/23/17818 Signed Impressions: Service Date/Time: Sunday, April 23, 2017 11:28 - CONCLUSION: 1. No definite acute abnormality seen. 2. Minimal smaller focal increased signal at the left cerebral peduncle on the diffusion weighted images. This could be artifactual. We correlated the patient has any symptoms potentially related to this area. 3. Diffuse demyelination likely secondary to small vessel scan change. 4. Fluid in the right maxillary sinus. Rodriguez De Leon MD Head CT 04/22/17 0000 Signed Impressions: Service Date/Time: Saturday, April 22, 2017 21:41 - CONCLUSION: 1. No acute intracranial abnormality. 2. Atrophy and chronic white matter changes. 3. Apparent right maxillary sinus disease. Rodriguez Donald MD Carotid Artery Ultrasound 04/22/17 0000 Signed Impressions: Service Date/Time: Saturday, April 22, 2017 18:00 - CONCLUSION: Within normal limits. No significant plaque or narrowing of the carotids. Rodriguez Donald MD Chest X-Ray 04/19/17 0000 Signed Impressions: Service Date/Time: Wednesday, April 19, 2017 11:23 - CONCLUSION: No acute disease. Bert Jo MD Physical Exam HEENT: Normocephalic; atraumatic; no jaundice. CHEST: CTA CARDIAC: RRR ABDOMEN: Soft, nondistended, nontender; no hepatosplenomegaly; bowel sounds are present in all four quadrants. EXTREMITIES: No clubbing, cyanosis, or edema. SKIN: Normal; no rash; no jaundice. [employer]: No focal deficits; alert and oriented times three. (Maddison Guzman [facility]) Assessment and Plan Plan ASSESSMENT: - Abnormal imaging with esophageal mass noted on CT thorax. CT thorax (04/24/17 ) and this revealed distal esophageal mass as described above no obvious metastatic disease to the chest. He was also evaluated with CT scan abdomen and pelvis (04/24/17 )---> thick walled bladder with obturator adenopathy on the left, possible stone in the proximal common duct, there is no adenopathy, portal adenopathy, or metastatic disease. GI has been consulted for evaluation of esophageal mass seen on CT thorax. The patient has never had an EGD. GERD and takes Omeprazole at home. + decreased appetite and weight loss, but is not able to quantify or tell me over what time period. Plan for EGD tomorrow. - Questionable choledocholithiasis. CT abdomen and pelvis with questionable CBD stone. MRCP (04/25/17)---> Filling defects within the expected region of the gallbladder neck and/or cystic duct. Minimal gallbladder wall thickening is noted. If there is clinical concern for acute cholecystitis a HIDA may be helpful to rule out cystic duct obstruction. Multiple mild focal strictures within the central intrahepatic biliary system raising the possibility of primary sclerosing cholangitis. Clinical correlation is recommended. No evidence of choledocholithiasis. Diffuse urinary bladder wall thickened which is stable compared to the previous examination. Internal debris is also noted. Small bladder wall mass cannot be ruled out on the basis of this examination. Suboptimal evaluation of the stomach and distal esopahgus on this examination. If there is clinical concern for a distal esophageal mass upper endoscopy would be more sensitive. Uncomplicated colonic diverticulosis. LFT normal. No n/v/pain. Plan for EGD/ERCP for possible PSC in am. - Urosepsis, UTI, Urinary retention. S/P Buchanan catheter placement. S/P evaluation. Cx E. Coli. Amoxicillin. - Nystagmus. Neurology following. MRI (unremarkable other than central atrophy ) and MRA(negative). Per neurology. Scheduled for LP today. - Hypokalemia, PSA, per attending. PLAN: - Plan for EGD/ERCP tomorrow - Obtain consents - NPO after MN - Monitor labs - Supportive care - Further recommendations to follow based on results of above - Pt seen and examined by Dr. Hardy and myself and this note is written on his behalf (Maddison Guzman) Physician Comments Patient seen and examined Agree with above Continue with current supportive care Monitor labs EGD with ERCP tomorrow (Maxim Hardy MD) Maddison Guzman Apr 26, 2017 10:08 Maxim Hardy MD Apr 26, 2017 20:25
--- NOTE | 2017-04-26 12:00 | PD.RAD ---
Post Procedure Progress Note Pre Procedure Diagnosis: (1) Dizziness Post Procedure Diagnosis: (1) Dizziness Procedure Date: Apr 26, 2017 Supervising Radiologist: Donis Moore Estimated blood loss: None Anesthesia: Local Plan of Activity Patient to Unit: Nursing Unit Patient Condition: Fair Additional Comments: LP completed without difficulty 18CC of clear csf removed. Full dictated report to follow. See PACS Report for procedural detail/treatment Donis Moore MD Apr 26, 2017 12:00
[2017-04-26 13:08] LABS: GROSS BLOOD TUBE #2 TRACE (0); GROSS BLOOD TUBE #4 0 (0); SUPERNATE COLOR TUBE #1 CLEAR (CLEAR); SUPERNATE COLOR TUBE #2 CLEAR (CLEAR); SUPERNATE COLOR TUBE #3 CLEAR (CLEAR); SUPERNATE COLOR TUBE #4 CLEAR (CLEAR); VOLUME TUBE # 2 3.6 ML; VOLUME TUBE # 4 6.5 ML
[2017-04-26 13:10] LABS: CSF LYMPHOCYTES 0 %; CSF NEUTROPHILS 0 %; GROSS BLOOD TUBE #4 0 (0); SUPERNATE COLOR TUBE #4 CLEAR (CLEAR); VOLUME TUBE # 4 6.5 ML; WBC TUBE #4 0 /MM3 (0-10)
[2017-04-26 13:41] LABS: CSF LYMPHOCYTES 90 %; CSF NEUTROPHILS 0 %
[2017-04-26 13:42] LABS: CSF MONOCYTES 10 %; WBC TUBE #1 6 /MM3 (0-10)
--- NOTE | 2017-04-26 13:47 | RADRPT ---
EXAM DATE/TIME: 04/26/2017 11:53 [facility] COMPARISON: No previous studies available for comparison. INDICATIONS : Patient presents with dizziness and weakness in need of lumbar puncture to rule out encephalitis. MEDICAL HISTORY : Urosepsis HTN UTI GERD Osteoarthritis SURGICAL HISTORY : Cystoscopy ENCOUNTER: Initial ACUITY: 1 week PAIN SCORE: 0/10 LOCATION: N/A LUMBAR PUNCTURE TIME: 11:43 hours FLUORO TIME: 2.43 minutes IMAGE SERIES: 0 ACCESS LEVEL: L3-4 FLUID: 18 cc of clear CSF was collected and sent to the laboratory for analysis. PROCEDURE : 1. Fluoroscopic guided lumbar puncture. The risks, benefits and alternatives to the procedure were explained and verbal and written consent w as obtained. The site was prepped in sterile fashion. Full sterile technique was used, including ca p, mask, sterile gloves and gown and a large sterile sheet. Hand hygiene and 2% chlorhexidine and/or betadine/alcohol prep was utilized per protocol for cutaneous antisepsis. The skin and subcutaneous tissues were infiltrated with local anesthetic solution. With fluoroscopic guidance the lumbar thecal sac was punctured at the level above. The fluid describ ed above was removed without difficulty. The patient tolerated the procedure well and there were no complications. CONCLUSION: Uncomplicated fluoroscopically guided lumbar puncture. Donis Moore MD on April 26, 2017 at 13:45 Board Certified Radiologist. This report was verified electronically.
[2017-04-26] MEDS ORDERED: MAGNESIUM SULFATE 1 GM PREMIX 100 ML IV ONE (15:00)
--- NOTE | 2017-04-26 15:03 | HHI.PR ---
Subjective Remarks Patient seen this morning. Says he feels all right. Says that dizziness is a little better today. Denies any chest pain or shortness of breath. Denies any nausea or vomiting. Objective Vital Signs Date Time Temp Pulse Resp B/P (MAP) Pulse Ox O2 Delivery O2 Flow Rate FiO2 04/26/17 10:00 95 04/26/17 08:00 97.5 95 16 124/71 (88) 100 128/77 (94) 130/83 (99) 04/26/17 04:00 97.5 94 18 166/92 (116) 100 04/26/17 00:00 96.6 103 18 147/79 (101) 97 04/25/17 20:03 102 04/25/17 20:00 109 18 136/82 (100) 99 04/25/17 20:00 96.6 99 18 154/83 (106) 100 04/25/17 20:00 111 18 141/80 (100) 95 04/25/17 16:00 95.2 90 18 136/84 (101) 96 I/O 04/25/17 04/25/17 04/25/17 04/26/17 04/26/17 04/26/17 07:00 15:00 23:00 07:00 15:00 23:00 Intake Total 1000 ml 1331 ml 558 ml Output Total 800 ml 1100 ml 3000 ml 450 ml Balance 200 ml 231 ml -2442 ml -450 ml Intake Oral 600 ml IV Total 1000 ml 731 ml 558 ml Output Urine Total 800 ml 1100 ml 3000 ml 450 ml # Bowel Movements 0 Result Diagram: 04/26/17 0550 04/26/17 0550 Objective Remarks GENERAL: pt sitting up in bed. Appears comfortable. SKIN: Warm and dry. HEAD: Normocephalic. EYES: No scleral icterus. No injection or drainage. Pupils equal round and reactive to light. Severe bilateral nystagmus, still no change from yesterday. NECK: Supple, trachea midline. No JVD. CARDIOVASCULAR: Regular rate and rhythm without murmurs, gallops, or rubs. RESPIRATORY: Breath sounds equal bilaterally. No accessory muscle use. GASTROINTESTINAL: Abdomen soft, non-tender, nondistended. MUSCULOSKELETAL: No cyanosis, or edema. BACK: Nontender without obvious deformity. No CVA tenderness. A/P Assessment and Plan =====9/20/17 /Dizziness. //significant bilateral nystagmus on exam, no change from yesterday. -no significant tremor or other signs of alcohol withdrawal. Patient does drink about 2 drinks per day. Denies any history of withdrawal. Ataxia not typical of Warneke's. Nevertheless, cont on thiamine. = Lumbar puncture plan for today. //Esophageal mass. As seen on CT abdomen. Consult gastroenterology. //Urinary retention, thick-walled bladder. -Buchanan removed. Continue straight catheters. Follow with Dr. Butcher as outpatient for TURP. -Monitor closely, may need Buchanan replaced if straight catheter is unsuccessful. //Severe hypomagnesemia. -Years to have resolved after replacement. We'll continue to monitor for 1 more day. // Severe sepsis. resolved. source is UTI: Blood culture negative so far. Urine culture growing E coli. Adjust antibiotics. Serum lactic acid now within normal limits. -04/22 Switched to amoxicillin by mouth. Finish amoxicillin on 04/29 /Dizziness. //significant bilateral nystagmus on exam, no change from yesterday. -no significant tremor or other signs of alcohol withdrawal. Patient does drink about 2 drinks per day. Denies any history of withdrawal. Ataxia not typical of Warneke's. Nevertheless, cont on thiamine. = Appreciate neurology assistance. MRI with no acute abnormality. LIZZIE positive. 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 Further serologies pending //UTI, urinary retention, indwelling Buchanan catheter: Appreciate urology consult. Buchanan catheter changed. -04/22. Switched to amoxicillin by mouth. //Acute kidney injury: Likely secondary to dehydration. IV fluids. Monitor BUN and creatinine. = Resolved. //Hypokalemia: Resolved after replacement. //Lactic acidosis: Resolved. //Hypertension: Continue Norvasc. //Elevated PSA in the 30s. Follow-up with urology. //Cocaine abuse. -Patient admits to making his marijuana cigars dirty. Counseled on cocaine cessation. Patient agrees to stop cocaine. //Dizziness, lightheadedness -Suspect this could be secondary to nystagmus, hypomagnesemia. as above. DVT prophylaxis: Heparin. Discharge Planning Patient still with nystagmus, inability to walk unassisted. -Undergoing gastroenterology and neurology workup for possible paraneoplastic cause -Completes amoxicillin by mouth 04/29 -EGD pending -LP planned for today 04/26 = will need SNF. PT following. Appreciate assistance. Stepan Mehta MD Apr 26, 2017 15:03
[2017-04-26 18:02] LABS: APTT (PATIENT) 30.4 SEC (24.3-30.1); PROTHROMBIN TIME - PATIENT 11.2 SEC (9.8-11.6)
[2017-04-27] MEDS: SODIUM CHLOR 0.9% 1000 ML INJ 1,000 ML IV SCH ×2 (00:33→04:19)
[2017-04-27 00:41] VITALS: BP 118/59; PULSE 93; RESP 18; TEMP 97; O2SAT 100
[2017-04-27 04:00] VITALS: BP 141/73; PULSE 92; RESP 18; TEMP 97.1; O2SAT 95
[2017-04-27] MEDS: HEPARIN SODIUM - SQ 10,000 UNITS/ML VIAL SQ SCH ×2 (04:24→16:27)
[2017-04-27 04:53] LABS: BASOPHIL # 0.1 TH/MM3 (0-0.2); BASOPHIL % 1.1 % (0.0-2.0); EOSINOPHIL # 0.2 TH/MM3 (0-0.4); EOSINOPHIL % 3.5 % (0.0-4.0); HEMATOCRIT 34.8 % (39.0-51.0); HEMO FLAGS DIFF FINAL; LYMPH % 28.7 % (9.0-44.0); LYMPHOCYTE # 1.5 TH/MM3 (1.0-4.8); MEAN CELL VOLUME 94.4 FL (80.0-100.0); MEAN CORPUSCULAR HEMOGLOBIN 31.6 PG (27.0-34.0); MEAN CORPUSCULAR HGB CONC 33.4 % (32.0-36.0); MONO % 9.7 % (0.0-8.0); PLATELET COUNT 347 TH/MM3 (150-450); RED BLOOD COUNT 3.68 MIL/MM3 (4.50-5.90); RED CELL DISTRIBUTION WIDTH 12.7 % (11.6-17.2); WHITE BLOOD COUNT 5.3 TH/MM3 (4.0-11.0)
[2017-04-27 05:10] LABS: BICARBONATE 26.3 MEQ/L (21.0-32.0); MAGNESIUM 1.6 MG/DL (1.5-2.5); POTASSIUM 3.3 MEQ/L (3.5-5.1)
[2017-04-27 08:00] VITALS: BP_SYST 137; BP_SYST 138; BP_DIAS 77; BP_DIAS 79; BP_DIAS 88; PULSE 86; RESP 16; TEMP 96.7; O2SAT 99
[2017-04-27] MEDS ORDERED: MAGNESIUM OXIDE 400 MG TAB PO SCH (09:00)
[2017-04-27] MEDS: DOCUSATE SODIUM 50 MG/SENNA 8.6 MG TAB PO SCH ×2 (09:12→20:43)
[2017-04-27] MEDS: THIAMINE HCL 100 MG TAB PO SCH (09:13)
[2017-04-27] MEDS: PANTOPRAZOLE SOD 20 MG DELAYED RELEASE TAB PO SCH (09:13)
[2017-04-27] MEDS: amLODIPine BESYLATE 5 MG TAB PO SCH (09:14)
[2017-04-27] MEDS: AMOXICILLIN 875 MG TAB PO SCH ×2 (09:14→20:43)
--- NOTE | 2017-04-27 09:18 | HHI.PR ---
Subjective Remarks imbalance for 6 weeksm feels better Objective Vital Signs Date Time Temp Pulse Resp B/P (MAP) Pulse Ox O2 Delivery O2 Flow Rate FiO2 04/27/17 08:00 96.7 86 16 137/77 (97) 99 138/79 (98) 138/88 (105) 04/27/17 04:00 97.1 92 18 141/73 (95) 95 04/27/17 00:41 97.0 93 18 118/59 (78) 100 04/26/17 20:42 110 117/76 (90) 04/26/17 20:42 109 124/80 (95) 04/26/17 20:41 97.8 100 17 117/77 (90) 97 04/26/17 20:00 109 04/26/17 16:00 112 134/94 (107) 98 120/73 (89) 04/26/17 16:00 97.9 95 17 141/78 (99) 94 134/94 (107) 04/26/17 10:00 95 I/O 04/26/17 04/26/17 04/26/17 04/27/17 04/27/17 04/27/17 07:00 15:00 23:00 07:00 15:00 23:00 Intake Total 558 ml 600 ml 120 ml 1374 ml Output Total 3000 ml 450 ml 1150 ml Balance -2442 ml 150 ml -1030 ml 1374 ml Intake Oral 600 ml 120 ml IV Total 558 ml 1374 ml Output Urine Total 3000 ml 450 ml 1150 ml # Voids 1 # Bowel Movements 0 Result Diagram: 04/27/1740904/27/17 0410 Objective Remarks still nystagmus but less more to r than left but much less in general gait improved independently walked today down [address] Assessment and Plan Assessment and Plan imp mri i reviewed and nl x some central atrophy mra neg stand bp ok psa 34 defer to med team trop neg mg nl 1.8 us neg b12 ok on thiamine plan is ct chest and abd bladder thick and esoph mass will defer to med team on that paraneoplatic screen pend PT oob spep abn check ipep upep 04/26/17 looks better gait and nyst i think considering all prudent to do LP check hiv egd labs pend ipep/paraneo better though can silva be dced? standing bp ok 04/27/17 silva out doing well LP neg paraneo pend for egd he can dc neurowise after all else clear on mvi a day he is much improved psa high defer to med team Isai Vasquez MD Apr 27, 2017 09:18
[2017-04-27 09:29] VITALS: PULSE 71
[2017-04-27] MEDS ORDERED: MAGNESIUM SULFATE 1 GM PREMIX 100 ML IV ONE (09:45)
[2017-04-27] MEDS ORDERED: ONDANSETRON HCL 4 MG/2 ML VIAL IV PUSH ONE (09:45)
[2017-04-27] MEDS ORDERED: ePHEDrine/NS 25 MG/5 ML SYR IV ONE (09:45)
[2017-04-27] MEDS ORDERED: PROPOFOL 200 MG/20 ML AMP IV ONE ×2 (09:45→12:00)
[2017-04-27] MEDS ORDERED: SUCCINYLCHOLINE CHLORIDE 100 MG/5 ML SYRINGE IV PUSH ONE (09:45)
[2017-04-27] MEDS ORDERED: PHENYLEPH/NS 1000 MCG/10 ML SYR IV ONE (09:45)
[2017-04-27] MEDS ORDERED: GLUCAGON 1 MG/ML VIAL IV PUSH ONE (11:59)
[2017-04-27] MEDS ORDERED: IOHEXOL 350 MG/ML 50 ML BTL (for RAD DIAG) OTHER ONE (12:07)
[2017-04-27] MEDS ORDERED: DO NOT ADM ANY ANTICOAGULANT DRUGS PRN (12:40)
--- NOTE | 2017-04-27 12:46 | PD.PROCEDR ---
GI Procedure REFERRING PHYSICIAN DIEGO PROCEDURE PERFORMED EGD followed by an ERCP INDICATION FOR PROCEDURE Abnormal imaging suggesting esophageal mass also suggesting PSC PROCEDURE: The procedure, risks and benefits were discussed with Mr. Chacon and informed consent was obtained. Anesthesia sedated him with Diprivan. He was placed in the left lateral decubitus position. EGD: The Pentax videoscope was introduced through the oropharynx and advanced to the second portion of the duodenum under direct visualization. Retroflexion was performed in the stomach. FINDINGS: The esophagus this was normal The stomach this was unremarkable The duodenum this too was normal ERCP: Patient was placed in a prone position. The Pentax videoscope was introduced through the oropharynx and advanced to the second portion of the duodenum where the ampula was identified. FINDINGS: The ampulla was noted to be unremarkable. This was hard to cannulate and so a needle-knife sphincterotomy was performed. Thereafter we were able to obtain easy cannulation of the common bile duct which appeared to be slightly dilated but most importantly were the intrahepatics that were very narrowed the left intrahepatic system had a slightly beady look to it suggesting possible PSC. No filling defects were noted. No gallbladder was seen ESTIMATED BLOOD LOSS: None SPECIMENS REMOVED: None COMPLICATIONS: None IMPRESSION: Unremarkable EGD Narrowed intrahepatic biliary system possibly representing PSC PLAN: Continue with current supportive care Will obtain ASCA Consider liver biopsy Maxim Hardy MD Apr 27, 2017 12:46
[2017-04-27 13:54] LABS: HU (NEURONAL NUCLEAR) WESTBLOT NEGATIVE (NEGATIVE); NEURONAL NUCLEAR(Ri) AB SCREEN FLUORESCENCE NOTED (NEGATIVE); PURKINJE CELL (YO) AB FLUORESCENCE NOTED (NEGATIVE); PURKINJE CELL(YO)IGG AB TITER ND titer (<1:40); YO WESTBLOT NEGATIVE (NEGATIVE)
--- NOTE | 2017-04-27 14:10 | RADRPT ---
EXAM DATE/TIME: 04/27/2017 12:13 [facility] COMPARISON: No previous studies available for comparison. INDICATIONS : Obstruction, sphincterotomy, balloon sweep. FLUORO TIME: 2.12 minutes IMAGE COUNT: 5 CONTRAST: Instilled by Ordering Physician MEDICAL HISTORY : Hypertension. Seizure SURGICAL HISTORY : None. ENCOUNTER: Initial ACUITY: 1 day PAIN SCORE: Non-responsive. LOCATION: Right lower quadrant FINDINGS: An ERCP was performed by the ordering physician. The images demonstrate a balloon sweep of a mildly dilated cannulated common bile duct. No complicati ons identified. CONCLUSION: ERCP as above. Giles Gardner MD on April 27, 2017 at 14:02 Board Certified Radiologist. This report was verified electronically.
[2017-04-27 20:00] VITALS: BP 146/81; PULSE 73; PULSE 75; RESP 20; TEMP 97.2; O2SAT 93
[2017-04-27] MEDS: MAGNESIUM OXIDE 400 MG TAB PO SCH (20:43)
[2017-04-27] MEDS ORDERED: POTASSIUM CHLORIDE 20 MEQ CONTROLLED RELEASE TAB PO ONE (21:30)
--- NOTE | 2017-04-27 21:59 | HHI.PR ---
Subjective Remarks Patient seen today after EGD. Says he feels tired. Denies any pain. He says he is not sure if he has dizziness. Objective Vital Signs Date Time Temp Pulse Resp B/P (MAP) Pulse Ox O2 Delivery O2 Flow Rate FiO2 04/27/17 20:00 97.2 73 20 146/81 (102) 93 04/27/17 13:05 97.4 90 20 136/75 (95) 95 Room Air 04/27/17 13:00 92 20 134/74 (94) 98 Nasal Cannula 2 04/27/17 12:45 99 20 116/67 (83) 98 Nasal Cannula 2 04/27/17 12:37 98.7 99 20 126/72 (90) 100 Nasal Cannula 2 Manual Cuff/Doppler 04/27/17 09:29 71 04/27/17 08:00 96.7 86 16 137/77 (97) 99 138/79 (98) 138/88 (105) 04/27/17 04:00 97.1 92 18 141/73 (95) 95 04/27/17 00:41 97.0 93 18 118/59 (78) 100 I/O 04/26/17 04/26/17 04/26/17 04/27/17 04/27/17 04/27/17 06:59 14:59 22:59 06:59 14:59 22:59 Intake Total 558 ml 600 ml 120 ml 1374 ml 400 ml 583 ml Output Total 3000 ml 450 ml 1150 ml Balance -2442 ml 150 ml -1030 ml 1374 ml 400 ml 583 ml Intake Oral 600 ml 120 ml 120 ml IV Total 558 ml 1374 ml 463 ml Other 400 ml Output Urine Total 3000 ml 450 ml 1150 ml # Voids 1 3 # Bowel Movements 0 0 Result Diagram: 04/27/1740904/27/17409 Objective Remarks GENERAL: patient sleeping, wakes up for exam. SKIN: Warm and dry. HEAD: Normocephalic. EYES: No scleral icterus. No injection or drainage. Pupils equal round and reactive to light. still with bilateral nystagmus. NECK: Supple, trachea midline. No JVD. CARDIOVASCULAR: Regular rate and rhythm without murmurs, gallops, or rubs. RESPIRATORY: Breath sounds equal bilaterally. No accessory muscle use. GASTROINTESTINAL: Abdomen soft, non-tender, nondistended. MUSCULOSKELETAL: No cyanosis, or edema. BACK: Nontender without obvious deformity. No CVA tenderness. A/P Assessment and Plan =====04/27/17 /Dizziness. //significant bilateral nystagmus on exam, no change from yesterday. -no significant tremor or other signs of alcohol withdrawal. Patient does drink about 2 drinks per day. Denies any history of withdrawal. Ataxia not typical of Warneke's. Nevertheless, cont on thiamine. = Lumbar puncture appears negative. = LIZZIE positive, with anti-RI, and type Purkinje cell antibody, neuronal nuclear antibody positive. Neurology following. Appreciate assistance //Esophageal mass. //Narrowed intrahepatic biliary system, possibly PSC -Negative EGD today. -ERCP performed today. Serologies pending. Appreciate GI assistance. //Urinary retention, thick-walled bladder. - Continue straight catheters. Follow with Dr. Butcher as outpatient for TURP. //Severe hypomagnesemia. -Replaced again. Switched to twice daily by mouth replacement. // Severe sepsis. resolved. source is UTI: Blood culture negative so far. Urine culture growing E coli. Adjust antibiotics. Serum lactic acid now within normal limits. -04/22 Switched to amoxicillin by mouth. Finish amoxicillin on 04/29 /Dizziness. //significant bilateral nystagmus on exam, no change from yesterday. -no significant tremor or other signs of alcohol withdrawal. Patient does drink about 2 drinks per day. Denies any history of withdrawal. Ataxia not typical of Warneke's. Nevertheless, cont on thiamine. = Appreciate neurology assistance. MRI with no acute abnormality. LIZZIE positive. 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 Further serologies pending //UTI, urinary retention, indwelling Buchanan catheter: Appreciate urology consult. Buchanan catheter changed. -04/22. Switched to amoxicillin by mouth. //Acute kidney injury: Likely secondary to dehydration. IV fluids. Monitor BUN and creatinine. = Resolved. //Hypokalemia: Resolved after replacement. //Lactic acidosis: Resolved. //Hypertension: Continue Norvasc. //Elevated PSA in the 30s. Follow-up with urology. //Cocaine abuse. -Patient admits to making his marijuana cigars dirty. Counseled on cocaine cessation. Patient agrees to stop cocaine. //Dizziness, lightheadedness -Suspect this could be secondary to nystagmus, hypomagnesemia. as above. DVT prophylaxis: Heparin. Discharge Planning Patient still with nystagmus, inability to walk unassisted. -Undergoing gastroenterology and neurology workup for possible paraneoplastic cause -Completes amoxicillin by mouth 04/29 = patient apparently refuses SNF. we'll need straight catheters versus Buchanan, follow with urology as outpatient. Appreciate assistance. Stepan Mehta MD Apr 27, 2017 21:59
[2017-04-28] VITALS (7 sets, daily range): BP systolic 115–131; BP diastolic 65–80; PULSE 80–97; RESP 16–20; TEMP 96.6–98.3; O2SAT 94–100
[2017-04-28] MEDS: SODIUM CHLOR 0.9% 1000 ML INJ 1,000 ML IV SCH ×2 (00:14→12:35)
[2017-04-28] MEDS: HEPARIN SODIUM - SQ 10,000 UNITS/ML VIAL SQ SCH ×2 (04:00→16:39)
[2017-04-28 07:24] LABS: HEMATOCRIT 34.4 % (39.0-51.0); MEAN CELL VOLUME 93.3 FL (80.0-100.0); MEAN CORPUSCULAR HGB CONC 33.2 % (32.0-36.0); PLATELET COUNT 360 TH/MM3 (150-450); RED BLOOD COUNT 3.69 MIL/MM3 (4.50-5.90); RED CELL DISTRIBUTION WIDTH 12.9 % (11.6-17.2); REVIEW FLAG FINAL; WHITE BLOOD COUNT 6.2 TH/MM3 (4.0-11.0)
[2017-04-28 08:01] LABS: ALKALINE PHOSPHATASE 181 U/L (45-117); ALT (GPT) 45 U/L (12-78); ANION GAP 6 MEQ/L (5-15); AST (GOT) 69 U/L (15-37); BICARBONATE 26.1 MEQ/L (21.0-32.0); BLOOD UREA NITROGEN 9 MG/DL (7-18); CHLORIDE 107 MEQ/L (98-107); GLOMERULAR FILTRATION RATE 74 ML/MIN (>89); POTASSIUM 3.5 MEQ/L (3.5-5.1); SODIUM (NA) 139 MEQ/L (136-145); TOTAL BILIRUBIN ADULT 0.4 MG/DL (0.2-1.0)
[2017-04-28] MEDS: THIAMINE HCL 100 MG TAB PO SCH (08:59)
[2017-04-28] MEDS: DOCUSATE SODIUM 50 MG/SENNA 8.6 MG TAB PO SCH (08:59)
[2017-04-28] MEDS: PANTOPRAZOLE SOD 20 MG DELAYED RELEASE TAB PO SCH (08:59)
[2017-04-28] MEDS: amLODIPine BESYLATE 5 MG TAB PO SCH (08:59)
[2017-04-28] MEDS: AMOXICILLIN 875 MG TAB PO SCH (09:00)
[2017-04-28] MEDS: MAGNESIUM OXIDE 400 MG TAB PO SCH (09:00)
[2017-04-28] MEDS ORDERED: WALKER WHEELS/F1 MIS (09:12)
--- NOTE | 2017-04-28 09:12 | HHI.FF ---
Face to Face Verification Diagnosis: (1) Dizziness (2) Hypertensive urgency (3) UTI (urinary tract infection) (4) Acute urinary retention Home Health Nursing Order: Medical education Buchanan catheter maintenance Instructions: patient to straight cath q6h Ergonomics Consultant Order: To Provide: Long range planning I have seen patient Kwaku Chacon on 04/28/17. My clinical findings support the need for the requested home health care services because: Deconditioned w/ increased weakness I certify that my clinical findings support that this patient is homebound because: Unsafe to leave home unassisted Stepan Mehta MD Apr 28, 2017 09:12
[2017-04-28] MEDS ORDERED: AMOX875T PO (10:49)
[2017-04-28] MEDS ORDERED: GNP100TA3 PO (10:52)
[2017-04-28] MEDS ORDERED: MULTTAB67 PO (10:52)
[2017-04-28] MEDS ORDERED: BEDSIDE COMMODE1 MI1 (10:52)
--- NOTE | 2017-04-28 12:33 | HHI.GIFU ---
Subjective Remarks Resting in bed. No n/v. No abdominal pain. States he may be going home today. (Maddison Guzman) Objective Vitals I&O Vital Signs Date Time Temp Pulse Resp B/P (MAP) Pulse Ox O2 Delivery O2 Flow Rate FiO2 04/28/17 08:00 97.7 84 16 120/77 (91) 96 04/28/17 04:00 96.7 97 20 123/80 (94) 97 04/28/17 00:00 98.3 95 20 115/65 (82) 96 04/27/17 20:00 97.2 73 20 146/81 (102) 93 04/27/17 20:00 75 04/27/17 13:05 97.4 90 20 136/75 (95) 95 Room Air 04/27/17 13:00 92 20 134/74 (94) 98 Nasal Cannula 2 04/27/17 12:45 99 20 116/67 (83) 98 Nasal Cannula 2 04/27/17 12:37 98.7 99 20 126/72 (90) 100 Nasal Cannula 2 Manual Cuff/Doppler I/O 04/27/17 04/27/17 04/27/17 04/28/17 04/28/17 04/28/17 07:00 15:00 23:00 07:00 15:00 23:00 Intake Total 1374 ml 400 ml 823 ml 1240 ml Balance 1374 ml 400 ml 823 ml 1240 ml Intake Oral 360 ml 240 ml IV Total 1374 ml 463 ml 1000 ml Other 400 ml # Voids 1 8 2 # Bowel Movements 2 Laboratory Laboratory Tests Test 04/28/17 06:20 04/28/17 10:10 White Blood Count 6.2 Red Blood Count 3.69 Hemoglobin 11.4 Hematocrit 34.4 Mean Corpuscular Volume 93.3 Mean Corpuscular Hemoglobin 31.0 Mean Corpuscular Hemoglobin Concent 33.2 Red Cell Distribution Width 12.9 Platelet Count 360 Mean Platelet Volume 7.4 Blood Urea Nitrogen 9 Creatinine 1.16 Random Glucose 83 Total Protein 7.1 Albumin 2.8 Calcium Level 8.5 Alkaline Phosphatase 181 Aspartate Amino Transf (AST/SGOT) 69 Alanine Aminotransferase (ALT/SGPT) 45 Total Bilirubin 0.4 Sodium Level 139 Potassium Level 3.5 Chloride Level 107 Carbon Dioxide Level 26.1 Anion Gap 6 Estimat Glomerular Filtration Rate 74 Date/Time Source Procedure Growth Status 04/19/17 13:45 Blood Peripheral Aerobic Blood Culture - Final NO GROWTH IN 5 DAYS Complete 04/19/17 13:45 Blood Peripheral Anaerobic Blood Culture - Final NO GROWTH IN 5 DAYS Complete 04/26/17 11:43 Cerebral Spinal Fluid Lumbar Puncture Fungal Smear - Final NO FUNGAL ELEMENTS SEEN. Resulted 04/26/17 11:43 Cerebral Spinal Fluid Lumbar Puncture Fungal Culture Pending Resulted 04/19/17 11:55 Urine Clean Catch Urine Culture - Final Escherichia Coli Complete Imaging Last Impressions GI Procedure 04/27/17 0000 Signed Impressions: Service Date/Time: April 12:13 - CONCLUSION: ERCP as above. Giles Gardner MD Lumbar Puncture Fluoroscopy 04/26/17 0000 Signed Impressions: Service Date/Time: Wednesday, April 26, 2017 11:53 - CONCLUSION: Uncomplicated fluoroscopically guided lumbar puncture. Donis Moore MD Cholangiopancreatography MRI 04/25/17 0000 Signed Impressions: Service Date/Time: Tuesday, April 25, 2017 19:10 - CONCLUSION: 1. Filling defects within the expected region of the gallbladder neck and/or cystic duct. Minimal gallbladder wall thickening is noted. If there is clinical concern for acute cholecystitis a hepatobiliary scan may be helpful to rule out cystic duct obstruction. 2. Multiple mild focal strictures within the central intrahepatic biliary system raising the possibility of primary sclerosing cholangitis. Clinical correlation is recommended. 3. No evidence of choledocholithiasis. 4. Diffuse urinary bladder wall thickening which is stable compared to the previous examination. Internal debris is also noted. Small bladder wall mass cannot be ruled out on the basis of this examination. 5. Suboptimal evaluation of the stomach and distal esophagus on this examination. If there is clinical concern for a distal esophageal mass upper endoscopy would be more sensitive. 6. Uncomplicated colonic diverticulosis. Bert Jo MD Chest CT 04/24/17 0000 Signed Impressions: Service Date/Time: Monday, April 24, 2017 12:29 - CONCLUSION: Distal esophageal mass as described above no obvious metastatic disease to the chest. Soto Moore MD FACR Abdomen/Pelvis CT 04/24/17 0000 Signed Impressions: Service Date/Time: Monday, April 24, 2017 12:29 - CONCLUSION: Thickwalled bladder with obturator adenopathy on the left Possible stone in the proximal common duct There is no adenopathy, portal adenopathy or metastatic disease. Soto Moore MD FACR Head Magnetic Resonance Angiography 04/23/17818 Signed Impressions: Service Date/Time: Sunday, April 23, 2017 11:28 - CONCLUSION: 1. Unremarkable MRA examination. No significant large vessel occlusions, flow-limiting stenosis or aneurysm. Sg López MD Brain MRI 04/23/17818 Signed Impressions: Service Date/Time: Sunday, April 23, 2017 11:28 - CONCLUSION: 1. No definite acute abnormality seen. 2. Minimal smaller focal increased signal at the left cerebral peduncle on the diffusion weighted images. This could be artifactual. We correlated the patient has any symptoms potentially related to this area. 3. Diffuse demyelination likely secondary to small vessel scan change. 4. Fluid in the right maxillary sinus. Rodriguez De Leon MD Head CT 04/22/17 0000 Signed Impressions: Service Date/Time: Saturday, April 22, 2017 21:41 - CONCLUSION: 1. No acute intracranial abnormality. 2. Atrophy and chronic white matter changes. 3. Apparent right maxillary sinus disease. Rodriguez Donald MD Carotid Artery Ultrasound 04/22/17 0000 Signed Impressions: Service Date/Time: Saturday, April 22, 2017 18:00 - CONCLUSION: Within normal limits. No significant plaque or narrowing of the carotids. Rodriguez Donald MD Chest X-Ray 04/19/17 0000 Signed Impressions: Service Date/Time: Wednesday, April 19, 2017 11:23 - CONCLUSION: No acute disease. Bert Jo MD Physical Exam HEENT: Normocephalic; atraumatic; no jaundice. CHEST: CTA CARDIAC: RRR ABDOMEN: Soft, nondistended, nontender; no hepatosplenomegaly; bowel sounds are present in all four quadrants. EXTREMITIES: No clubbing, cyanosis, or edema. SKIN: Normal; no rash; no jaundice. NUTRITION HELPER: No focal deficits; alert and oriented times three. (Maddison Guzman) Assessment and Plan Plan ASSESSMENT: - Abnormal imaging with esophageal mass noted on CT thorax. CT thorax (04/24/17 ) and this revealed distal esophageal mass as described above no obvious metastatic disease to the chest. He was also evaluated with CT scan abdomen and pelvis (04/24/17 )---> thick walled bladder with obturator adenopathy on the left, possible stone in the proximal common duct, there is no adenopathy, portal adenopathy, or metastatic disease. GI has been consulted for evaluation of esophageal mass seen on CT thorax. The patient has never had an EGD. GERD and takes Omeprazole at home. + decreased appetite and weight loss, but is not able to quantify or tell me over what time period. 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 ASCA pending (send out). - Questionable choledocholithiasis. CT abdomen and pelvis with questionable CBD stone. MRCP (04/25/17)---> Filling defects within the expected region of the gallbladder neck and/or cystic duct. Minimal gallbladder wall thickening is noted. If there is clinical concern for acute cholecystitis a HIDA may be helpful to rule out cystic duct obstruction. Multiple mild focal strictures within the central intrahepatic biliary system raising the possibility of primary sclerosing cholangitis. Clinical correlation is recommended. No evidence of choledocholithiasis. Diffuse urinary bladder wall thickened which is stable compared to the previous examination. Internal debris is also noted. Small bladder wall mass cannot be ruled out on the basis of this examination. Suboptimal evaluation of the stomach and distal esopahgus on this examination. If there is clinical concern for a distal esophageal mass upper endoscopy would be more sensitive. Uncomplicated colonic diverticulosis. LFT normal. No n/v/pain. 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 ASCA pending (send out). Consider liver biopsy. - Urosepsis, UTI, Urinary retention. S/P Buchanan catheter placement. S/P evaluation. Cx E. Coli. Amoxicillin. - Nystagmus. Neurology following. MRI (unremarkable other than central atrophy ) and MRA(negative). Per neurology. S/P LP - Hypokalemia, PSA, per attending. PLAN: - [facility] - Await cytology - Await ASCA - Supportive care - May need liver biopsy - [facility] [place] [facility], MondayMay 08, 10:[address] Pina - Pt seen and examined by Dr. Hardy and myself and this note is written on his behalf (Maddison Guzman) Physician Comments Patient seen and examined Agree with above Continue with current supportive care Monitor labs (Maxim Hardy MD) Maddison Guzman Apr 28, 2017 12:33 Maxim Hardy MD Apr 28, 2017 18:40
--- NOTE | 2017-04-28 12:44 | HHI.PR ---
Subjective Remarks Patient seen this morning around 10 AM. Says he is feeling well. Feels like going home. Denies any chest pain or shortness of breath. Reports dizziness as a lot better. Says he would like to continue doing straight catheters at home. Most follow-up with Dr. Augustin for TURP. Again stressed avoidance of cocaine and marijuana. Objective Vital Signs Date Time Temp Pulse Resp B/P (MAP) Pulse Ox O2 Delivery O2 Flow Rate FiO2 04/28/17 12:00 96.6 97 18 115/71 (86) 94 04/28/17 08:00 97.7 84 16 120/77 (91) 96 04/28/17 04:00 96.7 97 20 123/80 (94) 97 04/28/17 00:00 98.3 95 20 115/65 (82) 96 04/27/17 20:00 97.2 73 20 146/81 (102) 93 04/27/17 20:00 75 04/27/17 13:05 97.4 90 20 136/75 (95) 95 Room Air 04/27/17 13:00 92 20 134/74 (94) 98 Nasal Cannula 2 04/27/17 12:45 99 20 116/67 (83) 98 Nasal Cannula 2 I/O 04/27/17 04/27/17 04/27/17 04/28/17 04/28/17 04/28/17 07:00 15:00 23:00 07:00 15:00 23:00 Intake Total 1374 ml 400 ml 823 ml 1240 ml Balance 1374 ml 400 ml 823 ml 1240 ml Intake Oral 360 ml 240 ml IV Total 1374 ml 463 ml 1000 ml Other 400 ml # Voids 1 8 2 # Bowel Movements 2 Result Diagram: 04/28/1720 04/28/17 0620 Imaging Last Impressions GI Procedure 04/27/17 0000 Signed Impressions: Service Date/Time: April 12:13 - CONCLUSION: ERCP as above. Giles Gardner MD Lumbar Puncture Fluoroscopy 04/26/17 0000 Signed Impressions: Service Date/Time: Wednesday, April 26, 2017 11:53 - CONCLUSION: Uncomplicated fluoroscopically guided lumbar puncture. Donis Moore MD Cholangiopancreatography MRI 04/25/17 0000 Signed Impressions: Service Date/Time: Tuesday, April 25, 2017 19:10 - CONCLUSION: 1. Filling defects within the expected region of the gallbladder neck and/or cystic duct. Minimal gallbladder wall thickening is noted. If there is clinical concern for acute cholecystitis a hepatobiliary scan may be helpful to rule out cystic duct obstruction. 2. Multiple mild focal strictures within the central intrahepatic biliary system raising the possibility of primary sclerosing cholangitis. Clinical correlation is recommended. 3. No evidence of choledocholithiasis. 4. Diffuse urinary bladder wall thickening which is stable compared to the previous examination. Internal debris is also noted. Small bladder wall mass cannot be ruled out on the basis of this examination. 5. Suboptimal evaluation of the stomach and distal esophagus on this examination. If there is clinical concern for a distal esophageal mass upper endoscopy would be more sensitive. 6. Uncomplicated colonic diverticulosis. Bert Jo MD Chest CT 04/24/17 0000 Signed Impressions: Service Date/Time: Monday, April 24, 2017 12:29 - CONCLUSION: Distal esophageal mass as described above no obvious metastatic disease to the chest. Soto Moore MD FACR Abdomen/Pelvis CT 04/24/17 0000 Signed Impressions: Service Date/Time: Monday, April 24, 2017 12:29 - CONCLUSION: Thickwalled bladder with obturator adenopathy on the left Possible stone in the proximal common duct There is no adenopathy, portal adenopathy or metastatic disease. Soto Moore MD FACR Head Magnetic Resonance Angiography 04/23/17 0819 Signed Impressions: Service Date/Time: Sunday, April 23, 2017 11:28 - CONCLUSION: 1. Unremarkable MRA examination. No significant large vessel occlusions, flow-limiting stenosis or aneurysm. Sg López MD Brain MRI 04/23/17 0819 Signed Impressions: Service Date/Time: Sunday, April 23, 2017 11:28 - CONCLUSION: 1. No definite acute abnormality seen. 2. Minimal smaller focal increased signal at the left cerebral peduncle on the diffusion weighted images. This could be artifactual. We correlated the patient has any symptoms potentially related to this area. 3. Diffuse demyelination likely secondary to small vessel scan change. 4. Fluid in the right maxillary sinus. Rodriguez De Leon MD Head CT 04/22/17 0000 Signed Impressions: Service Date/Time: Saturday, April 22, 2017 21:41 - CONCLUSION: 1. No acute intracranial abnormality. 2. Atrophy and chronic white matter changes. 3. Apparent right maxillary sinus disease. Rodriguez Donald MD Carotid Artery Ultrasound 04/22/17 0000 Signed Impressions: Service Date/Time: Saturday, April 22, 2017 18:00 - CONCLUSION: Within normal limits. No significant plaque or narrowing of the carotids. Rodriguez Donald MD Chest X-Ray 04/19/17 0000 Signed Impressions: Service Date/Time: Wednesday, April 19, 2017 11:23 - CONCLUSION: No acute disease. Bert Jo MD Objective Remarks GENERAL: patient sleeping, wakes up for exam. SKIN: Warm and dry. HEAD: Normocephalic. EYES: No scleral icterus. No injection or drainage. Pupils equal round and reactive to light. Nystagmus has improved today. NECK: Supple, trachea midline. No JVD. CARDIOVASCULAR: Regular rate and rhythm without murmurs, gallops, or rubs. RESPIRATORY: Breath sounds equal bilaterally. No accessory muscle use. GASTROINTESTINAL: Abdomen soft, non-tender, nondistended. MUSCULOSKELETAL: No cyanosis, or edema. BACK: Nontender without obvious deformity. No CVA tenderness. A/P Assessment and Plan // Severe sepsis. resolved. source is UTI: Blood culture negative so far. Urine culture growing E coli. Adjust antibiotics. Serum lactic acid now within normal limits. -04/22 Switched to amoxicillin by mouth. Finish amoxicillin on 04/29 /Dizziness. //significant bilateral nystagmus on exam, no change from yesterday. -no significant tremor or other signs of alcohol withdrawal. Patient does drink about 2 drinks per day. Denies any history of withdrawal. Ataxia not typical of Warneke's. Nevertheless, cont on thiamine. = Appreciate neurology assistance. MRI with no acute abnormality. LIZZIE positive. 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 Further serologies pending = Patient with LIZZIE 1:1280, positive fluorescence, however negative Western blot. Further confirmatory LIZZIE panel pending. Follow-up with neurology as outpatient to go over these results. Discussed with patient who conveys understanding.. //Urinary retention, thick-walled bladder. - Continue straight catheters. Follow with Dr. Augustin as outpatient for TURP. //Esophageal mass. 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 Pathology results still pending. Serologies pending. Appreciate GI assistance. Follow-up with GI as outpatient. //UTI, urinary retention, indwelling Buchanan catheter: Appreciate urology consult. Buchanan catheter changed. -04/27 complete amoxicillin 04/29. //Severe hypomagnesemia. -Magnesium was undetectable initially. -Replaced extensively IV. -Continue twice daily by mouth replacement. //Acute kidney injury: Likely secondary to dehydration. IV fluids. Monitor BUN and creatinine. = Resolved. //Hypokalemia: Resolved after replacement of magnesium. //Lactic acidosis: Resolved. //Hypertension: Continue Norvasc. //Elevated PSA in the 30s. Follow-up with urology. //Cocaine abuse. -Patient admits to making his marijuana cigars dirty. Counseled on cocaine cessation. Patient agrees to stop cocaine. //Dizziness, lightheadedness -Suspect this could be secondary to nystagmus, hypomagnesemia. as above. DVT prophylaxis: Heparin. Discharge Planning Nystagmus improved. Able to walk with walker. -Follow-up gastroenterology, neurology as outpatient. Patient aware he may have cancer, and understands importance of following up. -Close follow-up with Dr. Augustin for TURP -Completes amoxicillin by mouth 04/29 = patient apparently refuses SNF. we'll need straight catheters versus Buchanan, follow with urology as outpatient. Appreciate assistance. Stepan Mehta MD Apr 28, 2017 12:44
--- NOTE | 2017-04-28 12:50 | HHI.DS ---
Discharge Summary Admission Date Apr 19, 2017 at 12:58 Discharge Date: Apr 28, 2017 Admitting Diagnosis urosepsis (1) Sepsis ICD Code: A41.9 - Sepsis, unspecified organism Status: Acute (2) Leukocytosis ICD Code: D72.829 - Elevated white blood cell count, unspecified (3) Lactic acidosis ICD Code: E87.2 - Acidosis (4) Hypertension ICD Code: I10 - Essential (primary) hypertension Status: Acute (5) UTI (urinary tract infection) ICD Code: N39.0 - Urinary tract infection, site not specified Status: Acute (6) Hypokalemia ICD Code: E87.6 - Hypokalemia Status: Acute Procedures EGD, ERCP. LP. Please see reports. Brief History - From Admission Patient is a 77-year-old male who presents to the emergency department with complaint of intermittent dizziness for the past month. He states that it has not really gotten better since he got out of the hospital. His symptoms worsened over the past couple days. He felt like he was going to pass out. He denies actual syncopal episodes. Denies chest pain or dyspnea. Denies fever, chills, night sweats. He had a cystoscopy recently and has an indwelling Buchanan catheter. CBC/BMP: 04/28/17 0620 04/28/17 0620 Significant Findings Laboratory Tests Test 04/26/17 05:50 04/26/17 10:38 04/26/17 11:43 04/26/17 17:33 Red Blood Count 3.86 MIL/MM3 (4.50-5.90) Hemoglobin 12.1 GM/DL (13.0-17.0) Hematocrit 36.7 % (39.0-51.0) Monocytes (%) (Auto) 10.1 % (0.0-8.0) Eosinophils (%) (Auto) 4.1 % (0.0-4.0) Blood Urea Nitrogen 6 MG/DL (7-18) Random Glucose 68 MG/DL (74-106) Albumin 2.7 GM/DL (3.4-5.0) Calcium Level 8.4 MG/DL (8.5-10.1) Chloride Level 109 MEQ/L (98-107) CSF RBC (Tube 1) 35 /MM3 (NONE) CSF Gross Blood (Tube 2) TRACE (0) CSF RBC (Tube 4) 1 /MM3 (NONE) CSF Total Protein 52.1 MG/DL (15.0-45.0) Activated Partial Thromboplast Time 30.4 SEC (24.3-30.1) Test 04/27/17 04:10 04/28/17 06:20 04/28/17 10:10 Red Blood Count 3.68 MIL/MM3 (4.50-5.90) 3.69 MIL/MM3 (4.50-5.90) Hemoglobin 11.6 GM/DL (13.0-17.0) 11.4 GM/DL (13.0-17.0) Hematocrit 34.8 % (39.0-51.0) 34.4 % (39.0-51.0) Monocytes (%) (Auto) 9.7 % (0.0-8.0) Albumin 2.5 GM/DL (3.4-5.0) 2.8 GM/DL (3.4-5.0) Calcium Level 8.1 MG/DL (8.5-10.1) Phosphorus Level 2.4 MG/DL (2.5-4.9) Potassium Level 3.3 MEQ/L (3.5-5.1) Chloride Level 108 MEQ/L (98-107) Estimat Glomerular Filtration Rate 87 ML/MIN (>89) 74 ML/MIN (>89) Alkaline Phosphatase 181 U/L (45-117) Aspartate Amino Transf (AST/SGOT) 69 U/L (15-37) Imaging Last Impressions GI Procedure 04/27/17 0000 Signed Impressions: Service Date/Time: April 12:13 - CONCLUSION: ERCP as above. Giles Gardner MD Lumbar Puncture Fluoroscopy 04/26/17 0000 Signed Impressions: Service Date/Time: Wednesday, April 26, 2017 11:53 - CONCLUSION: Uncomplicated fluoroscopically guided lumbar puncture. Donis Moore MD Cholangiopancreatography MRI 04/25/17 0000 Signed Impressions: Service Date/Time: Tuesday, April 25, 2017 19:10 - CONCLUSION: 1. Filling defects within the expected region of the gallbladder neck and/or cystic duct. Minimal gallbladder wall thickening is noted. If there is clinical concern for acute cholecystitis a hepatobiliary scan may be helpful to rule out cystic duct obstruction. 2. Multiple mild focal strictures within the central intrahepatic biliary system raising the possibility of primary sclerosing cholangitis. Clinical correlation is recommended. 3. No evidence of choledocholithiasis. 4. Diffuse urinary bladder wall thickening which is stable compared to the previous examination. Internal debris is also noted. Small bladder wall mass cannot be ruled out on the basis of this examination. 5. Suboptimal evaluation of the stomach and distal esophagus on this examination. If there is clinical concern for a distal esophageal mass upper endoscopy would be more sensitive. 6. Uncomplicated colonic diverticulosis. Bert Jo MD Chest CT 04/24/17 0000 Signed Impressions: Service Date/Time: Monday, April 24, 2017 12:29 - CONCLUSION: Distal esophageal mass as described above no obvious metastatic disease to the chest. Soto Moore MD FACR Abdomen/Pelvis CT 04/24/17 0000 Signed Impressions: Service Date/Time: Monday, April 24, 2017 12:29 - CONCLUSION: Thickwalled bladder with obturator adenopathy on the left Possible stone in the proximal common duct There is no adenopathy, portal adenopathy or metastatic disease. Soto Moore MD FACR Head Magnetic Resonance Angiography 04/23/17818 Signed Impressions: Service Date/Time: Sunday, April 23, 2017 11:28 - CONCLUSION: 1. Unremarkable MRA examination. No significant large vessel occlusions, flow-limiting stenosis or aneurysm. Sg López MD Brain MRI 04/23/17818 Signed Impressions: Service Date/Time: Sunday, April 23, 2017 11:28 - CONCLUSION: 1. No definite acute abnormality seen. 2. Minimal smaller focal increased signal at the left cerebral peduncle on the diffusion weighted images. This could be artifactual. We correlated the patient has any symptoms potentially related to this area. 3. Diffuse demyelination likely secondary to small vessel scan change. 4. Fluid in the right maxillary sinus. Rodriguez De Leon MD Head CT 04/22/17 0000 Signed Impressions: Service Date/Time: Saturday, April 22, 2017 21:41 - CONCLUSION: 1. No acute intracranial abnormality. 2. Atrophy and chronic white matter changes. 3. Apparent right maxillary sinus disease. Rodriguez Donald MD Carotid Artery Ultrasound 04/22/17 0000 Signed Impressions: Service Date/Time: Saturday, April 22, 2017 18:00 - CONCLUSION: Within normal limits. No significant plaque or narrowing of the carotids. Rodriguez Donald MD Chest X-Ray 04/19/17 0000 Signed Impressions: Service Date/Time: Wednesday, April 19, 2017 11:23 - CONCLUSION: No acute disease. Bert Jo MD PE at Discharge General: No acute distress. Heart: Regular rate and rhythm. No murmur. Lungs: Clear to auscultation bilaterally. No wheezes, rales, or rhonchi. Breathing is nonlabored. Abdomen: Soft, nontender, nondistended. Extremities: No lower extremity edema. Psych: Alert and oriented. Hospital Course Patient with severe sepsis on admission, source UTI. Treated with IV antibiotics, found to be sensitive to amoxicillin. Patient will follow-up with urology as outpatient for TURP. He will continue straight catheters. Regarding patient's dizziness, patient was found to have significant bilateral nystagmus on exam, for which neurology was consulted. MRI did not show any acute intracranial findings, an LP was negative. LIZZIE was +1; 1280, with further serologies pending. PSA was found to be elevated in the 30s, which was communicated with patient. He'll need to follow-up with urology as outpatient. Magnesium was found to be below detectable limits, and was replaced aggressively IV for several days, and patient was started on by mouth replacement which he will continue as outpatient. Patient was also found to have possible esophageal mass on CT for which gastroenterology was consulted, EGD was negative, however ERCP with possible PSC. Results were discussed with patient, however he will need to follow-up with gastroenterology to go over pathology. Patient conveys understanding. For problem-based summary for most recent progress note, please see below. // Severe sepsis. resolved. source is UTI: Blood culture negative so far. Urine culture growing E coli. Adjust antibiotics. Serum lactic acid now within normal limits. -04/22 Switched to amoxicillin by mouth. Finish amoxicillin on 04/29 /Dizziness. //significant bilateral nystagmus on exam, no change from yesterday. -no significant tremor or other signs of alcohol withdrawal. Patient does drink about 2 drinks per day. Denies any history of withdrawal. Ataxia not typical of Warneke's. Nevertheless, cont on thiamine. = Appreciate neurology assistance. MRI with no acute abnormality. LIZZIE positive. 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 Further serologies pending = Patient with LIZZIE 1:1280, positive fluorescence, however negative Western blot. Further confirmatory LIZZIE panel pending. Follow-up with neurology as outpatient to go over these results. Discussed with patient who conveys understanding.. //Urinary retention, thick-walled bladder. - Continue straight catheters. Follow with Dr. Augustin as outpatient for TURP. //Esophageal mass. 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 Pathology results still pending. Serologies pending. Appreciate GI assistance. Follow-up with GI as outpatient. //UTI, urinary retention, indwelling Buchanan catheter: Appreciate urology consult. Buchanan catheter changed. -04/27 complete amoxicillin 04/29. //Severe hypomagnesemia. -Magnesium was undetectable initially. -Replaced extensively IV. -Continue twice daily by mouth replacement. //Acute kidney injury: Likely secondary to dehydration. IV fluids. Monitor BUN and creatinine. = Resolved. //Hypokalemia: Resolved after replacement of magnesium. //Lactic acidosis: Resolved. //Hypertension: Continue Norvasc. //Elevated PSA in the 30s. Follow-up with urology. //Cocaine abuse. -Patient admits to making his marijuana cigars dirty. Counseled on cocaine cessation. Patient agrees to stop cocaine. //Dizziness, lightheadedness -Suspect this could be secondary to nystagmus, hypomagnesemia. as above. DVT prophylaxis: Heparin. Discharge Planning Nystagmus improved. Able to walk with walker. -Follow-up gastroenterology, neurology as outpatient. Patient aware he may have cancer, and understands importance of following up. -Close follow-up with Dr. Augustin for TURP -Completes amoxicillin by mouth 04/29 Pt Condition on Discharge: Good Discharge Disposition: Disch w/ Home Health Serv Discharge Time: > 30 minutes Discharge Instructions DIET: Follow Instructions for: Heart Healthy Diet Activities you can perform: Regular-No Restrictions Follow up Referrals: Gastroenterology - 1 Week with Maxim Hardy MD Neurology - 1 Week with Isai Vasquez MD PCP Follow-up - 1 Week Urology - 1 Week with Claudio Augustin MD New Medications: Amoxicillin (Amoxicillin) 875 Mg Tab 875 MG PO BID for Infection for 2 Days, #4 TAB 0 Refills Bedside Commode (Bedside Commode) 1 Mis Mis EA .ROUTE DIRECTED, #1 Multiple Vitamin (Multiple Vitamin) 1 Tab 1 TAB PO DAILY for Nutritional Supplement for 30 Days, #30 TAB 0 Refills Walker with Front Wheels (Walker with Front Wheels) 1 Mis Mis EA .ROUTE DIRECTED, #1 0 Refills Thiamine HCl (Gnp Vitamin B-1) 100 Mg Tab 100 MG PO DAILY for vitamin for 30 Days, #30 TAB Continued Medications: Amlodipine (Norvasc) 5 Mg Tab 5 MG PO DAILY for Blood Pressure Management, #30 TAB 0 Refills Omeprazole (Omeprazole) 20 Mg Tab 20 MG PO DAILY, #30 TAB 0 Refills Stepan Mehta MD Apr 28, 2017 12:50
[2017-04-28] MEDS ORDERED: MAGN400T3 PO (12:51)
[2017-04-28 19:52] LABS: CALIFORNIA ENCEPH AB IGG <1:4 (<1:4); CALIFORNIA ENCEPH AB IGM <1:4 (<1:4); EAST EQUINE ENCEPH AB IGG <1:4 (<1:4); EAST EQUINE ENCEPH AB IGM <1:4 (<1:4); ST LOUIS ENCEPH AB IGG <1:4 (<1:4); ST LOUIS ENCEPH AB IGM <1:4 (<1:4)
[2017-04-29 03:51] LABS: VITAMIN B6 2.1 ng/mL (2.1-21.7)
[2017-04-29 12:16] LABS: CSF CRYPTOCOCCUS AG CONF ND (NOT DETECTD)
[2017-04-30 03:52] LABS: C3 SERUM 97 mg/dL (90-180); C4 SERUM 33 mg/dL (ADULTS: 16-47); RHEUMATOID FACTOR 6 IU/mL (<14)
[2017-04-30 23:52] LABS: ACTIN AB IGG 81 U
[2017-05-01 15:52] LABS: SCL-70 AB <1.0 NEG AI (<1.0 NEGATIVE)
[2017-05-16] MEDS ORDERED: OMEP20TA PO (16:19)
[2017-05-30] MEDS ORDERED: CATH8MIS (10:44)
[2017-05-30] MEDS ORDERED: AMLO5 PO (10:44)
== END 2017-04-28 18:44 | disposition home health service (06) | DRG 871 ==
LOC: NEPC 09:21 → NEDA 12:58 → N07B 15:47
PROVIDERS: ADMIT Internal Medicine; ATTEND Internal Medicine
PROC: 009U3ZX Drainage of Spinal Canal, Percutaneous Approach, Diagnostic (ICD-10-PCS; principal; 2017-04-26)
PROC: 0DJ08ZZ Inspection of Upper Intestinal Tract, Via Natural or Artificial Opening Endoscopic (ICD-10-PCS; 2017-04-27)
PROC: 0FJB8ZZ Inspection of Hepatobiliary Duct, Via Natural or Artificial Opening Endoscopic (ICD-10-PCS; 2017-04-27 11:35)
DX: A41.51 Sepsis due to Escherichia coli [E. coli] (principal); K83.1 Obstruction of bile duct; N17.9 Acute kidney failure, unspecified; E87.2 Acidosis; N39.0 Urinary tract infection, site not specified; Z68.1 Body mass index [BMI] 19.9 or less, adult; R65.20 Severe sepsis without septic shock; E83.42 Hypomagnesemia; E86.0 Dehydration; E87.6 Hypokalemia; I10 Essential (primary) hypertension; K21.9 Gastro-esophageal reflux disease without esophagitis; N40.1 Benign prostatic hyperplasia with lower urinary tract symptoms; R33.8 Other retention of urine; H55.00 Unspecified nystagmus; R63.4 Abnormal weight loss; R27.0 Ataxia, unspecified; K57.30 Diverticulosis of large intestine without perforation or abscess without bleeding; M19.90 Unspecified osteoarthritis, unspecified site; F12.90 Cannabis use, unspecified, uncomplicated; F14.10 Cocaine abuse, uncomplicated; F17.210 Nicotine dependence, cigarettes, uncomplicated
CPT/HCPCS: 36600; 62270; 70450; 70544; 70553; 71020; 71260; 74177; 74183; 74330; 76377; 76937; 77003; 80048; 80053; 80061; 80069; 80076; 80307; 81001; 82140; 82550; 82607; 82746; 82805; 82945; 83516; 83605; 83735; 83921; 84153; 84155; 84157; 84165; 84181; 84207; 84439; 84443; 84484; 85025; 85027; 85610; 85652; 85730; 86038; 86039; 86140; 86160; 86225; 86235; 86255; 86403; 86431; 86592; 86651; 86652; 86653; 86654; 87015; 87040; 87070; 87077; 87086; 87102; 87116; 87186; 87205; 87206; 87389; 88112; 89051; 93005; 93880; 96360; A9579; C1769; J0330; J0696; J1610; J1644; J1956; J2370; J2405; J3010; J3411; J3420; J3475; J3480; J7030; J7040; Q9963; Q9967

== ENCOUNTER 2017-06-21 11:48 | Emergency (ER) | payer MEDICARE, MEDICAID ==
[~2017-06-21] VITALS: Ht 170.2 cm; Wt 57.7 kg
[~2017-06-21 11:48] MED LIST changes: -ASPI-99 PO; +BEDSIDE COMMODE1 MI1; +CATH8MIS; -MAGN400T3 PO; +MULTTAB67 PO; +OMEP20TA93 PO; -PANT40TA3 PO; +THIA100 PO; +WALKER WHEELS/F1 MIS
[2017-06-21] MEDS ORDERED: IOHEXOL 350 MG/ML 10 ML VIAL (for RAD DIAG) IVCONTRAST ONE (11:49)
[2017-06-21 11:51] VITALS: BP 161/77; PULSE 124; RESP 18; TEMP 97.8; O2SAT 99
[2017-06-21] MEDS ORDERED: SODIUM CHLOR 0.9% 1000 ML INJ 1,000 ML IV ONE ×2 (11:52→12:15)
[2017-06-21 11:53] VITALS: RESP 18; O2SAT 100
--- NOTE | 2017-06-21 12:08 | PD ---
HPI Chief Complaint: Stroke Alert Time Seen by Provider: 11:52 Travel History International Travel<30 days: No Contact w/Intl Traveler<30days: No History of Present Illness HPI Patient is a 77-year-old male presents emergency Department as a stroke alert by EMS. Foster confusion on the scene it was unclear initially as to what his onset time was. A neighbor walked out of state that he saw the patient approximately 60 minutes prior to arrival he was seen walking out onto his porch saying that he was going to see his doctor today. He was seen about 40 minutes prior to arrival slumped over in his chair drooling and was unable to talk at that time. EMS was called and states it was chaotic on scene in several different stories were heard but this was the most reliable history. The patient was stroke alert on arrival as he is densely aphasic was certainly limits his history at this time. Review of his records shows cocaine history and multiple occasions wrist tested positive for cocaine here. EMS states that possibly he was drinking prior to arrival according to bystanders. They also state them when they tried to walk the patient he had fair flaccidity of his left lower extremity. PFSH Past Medical History Arthritis: Yes Blood Disorders: No Cancer: No Cardiovascular Problems: Yes Diminished Hearing: No Endocrine: No Gastrointestinal Disorders: Yes GERD: Yes Genitourinary: Yes (unable to urinate) Hypertension: Yes Immune Disorder: No Musculoskeletal: Yes Neurologic: No Psychiatric: No Respiratory: No Seizures: Yes (as a child) Past Surgical History AICD: No Joint Replacement: No Pacemaker: No Social History Alcohol Use: Yes (daily) Tobacco Use: No Substance Use: No Allergies-Medications (Allergen,Severity, Reaction): Coded Allergies: No Known Allergies (Verified Allergy, Unknown, 06/21/17) Reported Meds & Prescriptions Reported Meds & Active Scripts Active Norvasc (Amlodipine Besylate) 5 Mg Tab 5 Mg PO DAILY Omeprazole 20 Mg Tab 20 Mg PO DAILY Review of Systems ROS Limitations: Altered Mental Status Physical Exam Narrative GENERAL: Well-developed well-nourished in no obvious distress. Very thin. SKIN: Focused skin assessment warm/dry. HEAD: Atraumatic. Normocephalic. EYES: Pupils equal and round. No scleral icterus. No injection or drainage. ENT: No nasal bleeding or discharge. Mucous membranes pink and moist. NECK: Trachea midline. No JVD. CARDIOVASCULAR: Regular rate and rhythm. No murmur appreciated. RESPIRATORY: No accessory muscle use. Clear to auscultation. Breath sounds equal bilaterally. GASTROINTESTINAL: Abdomen soft, non-tender, nondistended. Hepatic and splenic margins not palpable. MUSCULOSKELETAL: No obvious deformities. No clubbing. No cyanosis. No edema. NEUROLOGICAL: Awake and alert. Has a GCS of [id number]=16. He is densely aphasic on arrival but is able to follow commands in all 4 extremities. Possibly a little weak on the left side with 4 out of 5 dorsiflexion. His total NIH stroke scale on arrival is 4. He seems to be quickly resolving in the emergency department. He is intermittently cooperative with a cranial nerve examination but does not have any obvious deficits. PSYCHIATRIC: Appropriate mood and affect; insight and judgment normal. Data Data Last Documented VS Vital Signs Date Time Temp Pulse Resp B/P (MAP) Pulse Ox O2 Delivery O2 Flow Rate FiO2 06/21/17 17:10 06/21/17 14:00 97.9 108 18 97 Nasal Cannula 2.00 Orders Orders Diet Npo (06/21/17 Lunch) Activity Bed Rest (06/21/17 ) Electrocardiogram (06/21/17 ) I-Stat Creatinine (06/21/17 11:52) I-Stat Profile (06/21/17 11:52) Prothrombin Time / Inr (Pt) (06/21/17 11:52) Act Partial Throm Time (Ptt) (06/21/17 11:52) Complete Blood Count With Diff (06/21/17 11:52) Fibrinogen (06/21/17 11:52) Creatine Kinase (Cpk) (06/21/17 11:52) Troponin I (06/21/17 11:52) Ua Includes Microscopic (06/21/17 11:52) Drug Screen, Random Urine (06/21/17 11:52) Type And Screen (06/21/17 11:52) Ct Brain W/O Iv Contrast(Rout) (06/21/17 ) Cta Brain W Iv Contrast W 3d (06/21/17 11:52) Cta Neck W Iv Contrast W 3d (06/21/17 11:52) Consult Neurology (06/21/17 ) Blood Glucose (06/21/17 11:52) Ecg Monitoring (06/21/17 11:52) Neuro Checks Q2HX12,Q4H (06/21/17 11:52) Nursing Bedside Swallow Assess .ONCE (06/21/17 11:52) Iv Access Insert/Monitor (06/21/17 11:52) NPO (06/21/17 11:52) Oximetry (06/21/17 11:52) Oxygen Administration (06/21/17 11:52) Sodium Chlor 0.9% 1000 Ml Inj (Ns 1000 M (06/21/17 11:52) Resp Oxygen Jules C Titrat 1-4 L (06/21/17 11:52) Cath For Specimen (06/21/17 11:52) (Hub Use Only)[facility] Cons[facility] (06/21/17 ) Alcohol (Ethanol) (06/21/17 12:01) Sodium Chlor 0.9% 1000 Ml Inj (Ns 1000 M (06/21/17 12:15) Iohexol 350 Inj (Omnipaque 350 Inj) (06/21/17 11:49) Thiamine Inj (Thiamine Inj) (06/21/17 14:15) Multivitamin (Theragran) (06/21/17 14:15) Potassium Chlor 10 Meq Premix (Kcl 10 Me (06/21/17 14:15) Potassium Chloride (Kcl) (06/21/17 14:15) Lipid Profile (06/21/17 14:26) Westergren Sedimentation Rate (06/21/17 14:26) Echo 2d Comp With Doppler (06/21/17 ) Eeg Study (06/21/17 ) Aspirin Ec (Ecotrin Ec) (06/21/17 15:00) (Hub Use Only)[facility]Ref (06/21/17 ) ^ Straight Catheter (06/21/17 16:46) Labs Laboratory Tests Test 06/21/17 11:50 06/21/17 12:40 06/21/17 15:40 White Blood Count 12.4 TH/MM3 Red Blood Count 3.87 MIL/MM3 Hemoglobin 12.2 GM/DL Bedside Hemoglobin 12.9 G/DL Hematocrit 36.8 % Bedside Hematocrit 38.0 % Mean Corpuscular Volume 95.1 FL Mean Corpuscular Hemoglobin 31.5 PG Mean Corpuscular Hemoglobin Concent 33.1 % Red Cell Distribution Width 13.7 % Platelet Count 278 TH/MM3 Mean Platelet Volume 8.6 FL CBC Comment AUTO DIFF Differential Total Cells Counted 100 Neutrophils % (Manual) 53 % Lymphocytes % 40 % Monocytes % 4 % Eosinophils % 3 % Neutrophils # (Manual) 6.6 TH/MM3 Differential Comment FINAL DIFF MANUAL Platelet Estimate NORMAL Platelet Morphology Comment NORMAL [place] Cells 1+ Acanthocytes OCC Keratocytes Prothrombin Time 13.3 SEC Prothromb Time International Ratio 1.2 RATIO Activated Partial Thromboplast Time 28.5 SEC Fibrinogen 284 mg/dL Bedside Sodium 143 MMOL/L Bedside Potassium 2.6 MMOL/L Bedside Chloride 103 MMOL/L Bedside Blood Urea Nitrogen 11 MG/DL Bedside Creatinine 1.3 MG/DL Bedside Glucose 108 MG/DL Total Creatine Kinase 90 U/L Troponin I LESS THAN 0.02 NG/ML Ethyl Alcohol Level 6 MG/DL Urine Color LIGHT-YELLOW Urine Turbidity HAZY Urine pH 6.0 Urine Specific [place] 1.018 Urine Protein TRACE mg/dL Urine Glucose (UA) NEG mg/dL Urine Ketones NEG mg/dL Urine Occult Blood NEG Urine Nitrite NEG Urine Bilirubin NEG Urine Urobilinogen LESS THAN 2.0 MG/DL Urine Leukocyte Esterase LARGE Urine RBC 1 /hpf Urine WBC 43 /hpf Urine Squamous Epithelial Cells <1 /hpf Urine Opiates Screen NEG Urine Barbiturates Screen NEG Urine Amphetamines Screen NEG Urine Benzodiazepines Screen NEG Urine Cocaine Screen POS Urine Cannabinoids Screen NEG Erythrocyte Sedimentation Rate 16 mm/hr Triglycerides Level 84 MG/DL Cholesterol Level 148 MG/DL LDL Cholesterol 60 MG/DL HDL Cholesterol 71.6 MG/DL Cholesterol/HDL Ratio 2.06 RATIO MDM Medical Screen Exam Complete: Yes Emergency Medical Condition: Yes Differential Diagnosis TIA, ACS, intracranial hemorrhage, hypertensive emergency, alcoholic encephalopathy. Narrative Course Patient roomed in the emergency department stroke alert was called on his arrival. The patient was discussed with Dr. Hodge who recommended CT angiogram the head and neck as well as CAT scan of the head as the patient may be a TPA candidate given his dense aphasia. He was taken a CAT scan on arrival to the CAT scanner he is now able to talk. He remained significantly confused and has to be redirected several times to lie flat which ultimately is able to do. 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 Minimal intimal hyperplasia is present with scattered calcific plaque. LEFT CAROTID: There is no evidence for a hemodynamically significant carotid stenosis. Minimal intimal hyperplasia is present with scattered calcific plaque. VERTEBRAL ARTERIES: Flow is antegrade in both vertebral arteries. MISCELLANEOUS: There are no ancillary masses or adenopathy. CONCLUSION: Negative examination for a hemodynamically significant carotid stenosis. Soto Moore MD FACR Head CTA 06/21/17 1152 Signed Impressions: Service Date/Time: Wednesday, June 21, 2017 12:05 - CONCLUSION: Normal examination. Flaco Lane MD Head CT 06/21/17 0000 Signed Impressions: Service Date/Time: Wednesday, June 21, 2017 11:53 - CONCLUSION: 1. No acute intracranial abnormality. 2. Extensive chronic small vessel ischemic change. Keven Velazquez Jr., MD Over the next several hours the patient continued to improve in the emergency department. Discussed again with Dr. Hodge and we held TPA. Discussed the results with the patient and highly recommended admission to the hospital for TIA given his severity of symptoms I suggested informed him that the likelihood of him having a larger stroke in the near future is significant and can lead to significant and possibly permanent morbidity or even mortality. I even explained that this could include being bedbound for the rest of his life including bedsores dependence on machines for living and feeding or unable to use an extremity or talk for the rest of his life. The patient vocalized understanding and agreement all these risks and explained that he would like to go home. He does have a negative alcohol level tested positive for cocaine here. However he does understand the risks of leaving AGAINST MEDICAL ADVICE and is no indication to keep him here against his will. Requested patient family come to offer ride home, when they arrived they are also unable to talk him into staying. At this point he must be released to his own recognizance. I discussed with him that he needs to follow-up with a primary care physician discussed cocaine cessation as well as smoking cessation and discussed she can return to the emergency department anytime should he feel he should be admitted as encouraged to do so. Critical Care Narrative Aggregate critical care time was 35 minutes. Time to perform other separately billable procedures was not included in the critical care time. My time did not include minutes spent treating any other patients simultaneously or on activities that did not directly contribute to the patient's treatment. The services I provided to this patient were to treat and/or prevent clinically significant deterioration that could result in: [ disability and organ failure I provided critical care services requiring my management, as noted below: Chart data review, documentation time, medication orders and management, vital sign assessments/reviewing monitor data, ordering and reviewing lab tests, ordering and interpreting/reviewing x-rays and diagnostic studies, care of the patient and discussion of the patient with the admitting physicians. Stroke Alert NIHSS NIH Stroke Scale Result: 4 NIHSS Time Completed: 11:55 Thrombolytic Contraindications Contraindications Comment: Resolving Diagnosis Diagnosis: Primary Impression: TIA (transient ischemic attack) Qualified Codes: G45.9 - Transient cerebral ischemic attack, unspecified Referrals: [facility] [address] Additional Instructions: I believe you had a TIA today also known as a transient ischemic attack. This can lead to a more massive stroke. Highly recommend that she follow-up with a primary care physician or the [facility] for further workup. Your strongly encouraged to return to the emergency department for admission. I recommend he take an aspirin 81 mg every day. Highly recommend you stop using illicit substances including cocaine, recommend stop smoking as these will put you at increased risk of stroke and heart attack. Disposition: 07 AGAINST MEDICAL ADVICE Condition: Bert Brown MD Jun 21, 2017 12:07
[2017-06-21 12:16] LABS: I-STAT SODIUM 143 MMOL/L (138-146)
--- NOTE | 2017-06-21 12:16 | RADRPT ---
EXAM DATE/TIME: 06/21/2017 11:53 [facility] COMPARISON: CT BRAIN W/O CONTRAST, April 22, 2017, 21:41. INDICATIONS : Stroke alert, inability to speak, resolved now RADIATION DOSE: 56.35 CTDIvol (mGy) This report was called by Dr Velazquez to Dr Rosen at 1210 MEDICAL HISTORY : Non-responsive. SURGICAL HISTORY : Non-responsive. ENCOUNTER: Initial ACUITY: 1 day PAIN SCALE: 0/10 LOCATION: cranial TECHNIQUE: Multiple contiguous axial images were obtained of the head. Using automated exposure control and adj ustment of the mA and/or kV according to patient size, radiation dose was kept as low as reasonably a chievable to obtain optimal diagnostic quality images. DICOM format image data is available electro nically for review and comparison. FINDINGS: CEREBRUM: Periventricular low attenuation change involving both cerebral hemispheres. The ventricles are normal for age. No evidence of midline shift, mass lesion, hemorrhage or acute infarction. No extra-axial fluid collections are seen. POSTERIOR FOSSA: The cerebellum and brainstem are intact. The 4th ventricle is midline. The cerebellopontine angle i s unremarkable. EXTRACRANIAL: The visualized portion of the orbits is intact. Small air-fluid level within the right maxillary sinu s without mucosal thickening. Mastoid air cells are clear. SKULL: The calvaria is intact. No evidence of skull fracture. CONCLUSION: 1. No acute intracranial abnormality. 2. Extensive chronic small vessel ischemic change. Keven Velazquez Jr., MD on June 21, 2017 at 12:08 Board Certified Radiologist. This report was verified electronically.
[2017-06-21 12:18] LABS: I-STAT POTASSIUM 2.6 MMOL/L (3.5-4.9)
[2017-06-21 12:21] LABS: HEMATOCRIT 36.8 % (39.0-51.0); MEAN CELL VOLUME 95.1 FL (80.0-100.0); MEAN CORPUSCULAR HEMOGLOBIN 31.5 PG (27.0-34.0); MEAN CORPUSCULAR HGB CONC 33.1 % (32.0-36.0); PLATELET COUNT 278 TH/MM3 (150-450); RED BLOOD COUNT 3.87 MIL/MM3 (4.50-5.90); RED CELL DISTRIBUTION WIDTH 13.7 % (11.6-17.2); WHITE BLOOD COUNT 12.4 TH/MM3 (4.0-11.0)
[2017-06-21 12:24] LABS: HEMO FLAGS AUTO DIFF
[2017-06-21 12:27] LABS: APTT (PATIENT) 28.5 SEC (24.3-30.1); INTERNATIONAL NORMALIZED RATIO 1.2 RATIO; PROTHROMBIN TIME - PATIENT 13.3 SEC (9.8-11.6)
[2017-06-21 12:39] VITALS: BP 161/86; PULSE 113; RESP 18; TEMP 97.8; O2SAT 99
[2017-06-21 12:46] LABS: CREATINE KINASE 90 U/L (39-308)
--- NOTE | 2017-06-21 12:59 | RADRPT ---
EXAM DATE/TIME: 06/21/2017 12:05 [facility] COMPARISON: CT BRAIN W/O CONTRAST, June 21, 2017, 11:53. INDICATIONS : Stroke alert confusion IV CONTRAST: 75 cc Omnipaque 350 (iohexol) IV ; Cumulative dose for multiple exams. RADIATION DOSE: 14.44 CTDIvol (mGy) ; Combined studies MEDICAL HISTORY : Non-responsive. SURGICAL HISTORY : Non-responsive. ENCOUNTER: Initial ACUITY: 1 day PAIN SCALE: Non-responsive LOCATION: CTA head TECHNIQUE: Volumetric scanning was performed using a multi-row detector CT scanner. The data was post processed with a variety of visualization algorithms including full volume maximum intensity projection, multi -planar sliding thin slab reformation, curved planar reformation, and surface rendering techniques. Using automated exposure control and adjustment of the mA and/or kV according to patient size, radiat ion dose was kept as low as reasonably achievable to obtain optimal diagnostic quality images. DICO M format image data is available electronically for review and comparison. FINDINGS: There is excellent visualization of the major intracranial arteries out to the second-order branch ve ssels. There is no evidence for aneurysm, vessel truncation or stenosis, and no evidence for vascula r malformation. CONCLUSION: Normal examination. Flaco Lane MD on June 21, 2017 at 12:57 Board Certified Radiologist. This report was verified electronically.
[2017-06-21 13:28] LABS: BLOOD, URINE NEG (NEG); GLUCOSE,URINE NEG (NEG); KETONE, URINE NEG (NEG); NITRITE,URINE NEG (NEG); SQUAMOUS EPITHELIAL CELL URINE <1 /hpf (0-5); URINE COLOR LIGHT-YELLOW (YELLW/STRAW)
[2017-06-21 13:29] LABS: EOSINOPHILS 3 % (0-4); NEUTROPHIL # MANUAL DIFF 6.6 TH/MM3 (1.8-7.7); PLATELET ESTIMATE SMEAR NORMAL (NORMAL); PLATELET MORPHOLOGY NORMAL (NORMAL); POLYS (SEG NEUTROPHILS) 53 % (16-70); SCAN/DIFF FINAL DIFF MANUAL; WBC DIFF SAMPLE 100
[2017-06-21 13:30] LABS: BURR CELLS 1+ (NORMAL)
--- NOTE | 2017-06-21 13:30 | RADRPT ---
EXAM DATE/TIME: 06/21/2017 12:03 [facility] COMPARISON: No previous studies available for comparison. INDICATIONS : Stroke alert,confusion IV CONTRAST: 75 cc Omnipaque 350 (iohexol) IV ; Cumulative dose for multiple exams. RADIATION DOSE: 14.44 CTDIvol (mGy) ; Combined studies MEDICAL HISTORY : Non-responsive. SURGICAL HISTORY : Non-responsive. ENCOUNTER: Initial ACUITY: 1 day PAIN SCALE: Non-responsive LOCATION: CTA carotid Elevated flow velocities and ICA/CCA ratios have been found to correlate with increased degrees of vessel stenosis, calculated as percentage of diameter relative to a normal segment of distal ICA/CCA. TECHNIQUE: Volumetric scanning was performed using a multirow detector CT scanner. The data was post processed with a variety of visualization algorithms including full-volume maximum intensity projection, multip lanar sliding thin-slab reformation, curved-planar reformation, and surface-rendering techniques. Us ing automated exposure control and adjustment of the mA and/or kV according to patient size, radiatio n dose was kept as low as reasonably achievable to obtain optimal diagnostic quality images. DICOM f ormat image data is available electronically for review and comparison. FINDINGS: AORTIC ARCH: There is a three-vessel origin of the great vessels from the aorta. No evidence of ostial narrowing. RIGHT CAROTID: The common carotid artery is intact. The carotid bulb has a normal configuration without ulceration o r narrowing. The internal carotid artery lumen is smooth without stenosis. The external carotid patricia ry is intact. LEFT CAROTID: The common carotid artery is intact. The carotid bulb has a normal configuration without ulceration or narrowing. The internal carotid artery lumen is smooth without stenosis. The external carotid ar giovana is intact. VERTEBRALS: The vertebral arteries have a symmetric diameter. No stenotic lesions are seen. CONCLUSION: RIGHT CAROTID: There is no evidence for a hemodynamically significant carotid stenos is. Minimal intimal hyperplasia is present with scattered calcific plaque. LEFT CAROTID: There is no evidence for a hemodynamically significant carotid stenosis. Minimal inti mal hyperplasia is present with scattered calcific plaque. VERTEBRAL ARTERIES: Flow is antegrade in both vertebral arteries. MISCELLANEOUS: There are no ancillary masses or adenopathy. CONCLUSION: Negative examination for a hemodynamically significant carotid stenosis. Soto Moore MD FACR on June 21, 2017 at 13:17 Board Certified Radiologist. This report was verified electronically.
[2017-06-21 13:31] LABS: ACANTHOCYTES OCC (NORMAL)
[2017-06-21 14:00] VITALS: BP 154/87; PULSE 108; RESP 18; TEMP 97.9; O2SAT 97
[2017-06-21] MEDS ORDERED: POTASSIUM CHLORIDE 20 MEQ CONTROLLED RELEASE TAB PO ONE (14:15)
[2017-06-21] MEDS ORDERED: POTASSIUM CHLOR 10 MEQ PREMIX 100 ML IV ONE (14:15)
[2017-06-21] MEDS ORDERED: THIAMINE INJ 100 MG in SODIUM CHLORIDE 0.9% INJ 100 ML IV ONE (14:15)
[2017-06-21] MEDS ORDERED: MULTIVITAMIN TAB PO ONE (14:15)
--- NOTE | 2017-06-21 14:59 | MB ---
cc: IKE MALONE M.D. DATE OF CONSULTATION: 06/21/2017 REASON FOR CONSULTATION The patient is [id number] seen for neurological consultation in regards to a possible stroke. HISTORY OF PRESENT ILLNESS The patient came in as a Stroke Alert. Apparently the patient lives by himself and was going to see doctors today. Then later on he was apparently found on the ground, unclear if this was by neighbors. He was brought to the hospital and initially may have been aphasic but he was moving all four extremities and following commands, just not verbalizing. I spoke to Dr. Castaneda on a couple of occasions. The patient was a potential candidate for TPA. He was sent for CT brain and CT angio studies. The studies came back negative including CT angio head and neck. The patient improved quickly and started conversing in the emergency room and seemed to be reasonably appropriate. He admitted to some significant alcohol use which apparently happened earlier today, though he is very vague when discussing this with me. He remains quite functional neurologic-arce for the past hour or two in the emergency room. PAST MEDICAL HISTORY He is unable to give me much history. He takes blood pressure medication and also medication for his stomach. We looked at the records here from the hospital including evaluation for urosepsis, positive cocaine in April this year when he had a neurologic evaluation. MRI brain and MRA head were negative studies. He had a lumbar puncture that was essentially negative. 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 NEUROLOGICAL EXAMINATION The exam shows the patient to be alert. He seems mildly anxious. He was initially standing up after he used the bedside commode on his own. The nurse helped him get back to bed. He is partially oriented but does not remember exactly why he came to the hospital. He started denying alcohol use earlier today but says he drank yesterday. He has some awareness of his medical history of hypertension and apparent stomach problems. There is facial symmetry where the left side of the face segs down. He is edentulous and more so on the left side. His speech was fairly clear and somewhat limited to a few words or simple phrases. He did head of ict strongly. He moves the lower extremities symmetrically. Reflexes were trace bilaterally and plantar responses were flexor. IMAGING CT brain and CT angio head and neck were essentially unremarkable. LABORATORY Labs so far include a potassium of 2.6, sodium normal, glucose 108. WBC 12.4, hemoglobin 12.2, platelet count 278. Toxicology positive cocaine in the urine. Alcohol level pending. Urinalysis with 1 rbc and 43 wbc's. ASSESSMENT AND RECOMMENDATIONS Stroke Alert, decreased responsiveness. He is markedly improved and his evaluation is showing findings of urinary tract infection, possible urosepsis. Again positive cocaine toxicology like in April of this year. We did not feel he was a candidate for TPA or more aggressive stroke care. We will request an EEG on him as a seizure is a consideration. Encephalopathy also probably from alcohol, cocaine and possibly from urosepsis. I will follow the neurological care. He has been started on thiamine, vitamins, IV hydration and aggressive medical care otherwise. Thank you for asking us to participate in his care. MD CECILY Waggoner/RADHA /2:25 PM /2:53 PM
[2017-06-21] MEDS ORDERED: ASPIRIN EC 81 MG TABEC PO SCH (15:00)
[2017-06-21 16:18] LABS: HDL CHOLESTEROL 71.6 MG/DL (40.0-60.0)
--- NOTE | 2017-06-22 18:11 | EKG ---
Date Performed: 06/21/2017 Time Performed: 12:28:11 PTAGE: 77 years EKG: SINUS TACHYCARDIA WITH SHORT ND INTERVAL NONSPECIFIC ST & T-WAVE ABNORMALITY ABNORMAL RHYTH M ECG PREVIOUS TRACING : 04/19/2017 10.05 Since the prior tracing, sinus tachycardia is new and the i nferolateral ST segment changes have increased. DOCTOR: Romelia Teran Interpretating Date/Time 06/22/2017 18:10:06
[2017-06-28] MEDS ORDERED: SODIUM CHLOR 0.9% 1000 ML INJ 1,000 ML IV SCH (10:23)
--- NOTE | 2017-06-30 08:43 | EKG ---
Date Performed: 06/28/2017 Time Performed: 10:17:03 PTAGE: 77 years EKG: Sinus rhythm WITH SHORT OK INTERVAL NONSPECIFIC ST & T-WAVE ABNORMALITY BORDERLINE ECG PREVIOUS TRACING : 06/21/2017 12.28 DOCTOR: Marcelino Ibanez Interpretating Date/Time 06/30/2017 08:42:46
== END 2017-06-21 17:11 | disposition left against medical advice (07) ==
LOC: NEPE 11:48
DX: G45.9 Transient cerebral ischemic attack, unspecified (principal); I10 Essential (primary) hypertension; M19.90 Unspecified osteoarthritis, unspecified site; K21.9 Gastro-esophageal reflux disease without esophagitis; R94.31 Abnormal electrocardiogram [ECG] [EKG]
CPT/HCPCS: 70450; 70496; 70498; 80061; 80307; 81001; 82435; 82550; 82565; 82947; 84132; 84295; 84484; 84520; 85007; 85027; 85384; 85610; 85652; 85730; 86850; 86900; 86901; 93005; 96361; 96365; 96368; 99291; J3411; J3480; J7030; Q9967

== ENCOUNTER 2017-06-28 09:55 | Emergency (ER) | payer MEDICARE, MEDICAID ==
[~2017-06-28] VITALS: Ht 170.2 cm; Wt 52.0 kg
[~2017-06-28 09:55] MED LIST changes: -BEDSIDE COMMODE1 MI1; -CATH8MIS; -MULTTAB67 PO; -THIA100 PO; -WALKER WHEELS/F1 MIS
[2017-06-28 10:13] VITALS: BP 168/99; PULSE 85; RESP 18; TEMP 97.8; O2SAT 99
[2017-06-28] MEDS ORDERED: SODIUM CHLOR 0.9% 1000 ML INJ 1,000 ML IV SCH (10:26)
--- NOTE | 2017-06-28 10:28 | PD ---
HPI Chief Complaint: altered mental status/syncope Time Seen by Provider: 10:03 Travel History International Travel<30 days: No Contact w/Intl Traveler<30days: No History of Present Illness HPI 77 y/o male patient brought to the ED by EMS. The patient was found by his nephew in his room, the nephew states that the patient was shaking and not responding appropriately so he called EMS. The patients only complaint is feeling weak. He also acknowledges some dizziness and difficulty with balance over the past two days. He denies chest pain/SOB, palpitations. He had N/V yesterday. He denies headache. No neck pain. No sick contacts. No recent travel. Patient was seen by me recently and had concerns for acute stroke in this person he was a stroke alert at the time and then spontaneously resolves no TPA was given. It was highly recommended him to stay in the hospital but he chose to leave AGAINST MEDICAL ADVICE. The patient does admit that he straight catheters at home and feels like he has to urinate now. PFSH Past Medical History Arthritis: Yes Blood Disorders: No Cancer: No Cardiovascular Problems: Yes Diminished Hearing: No Endocrine: No Gastrointestinal Disorders: Yes GERD: Yes Genitourinary: Yes (unable to urinate) Hypertension: Yes Immune Disorder: No Musculoskeletal: Yes Neurologic: No Psychiatric: No Respiratory: No Seizures: Yes (as a child) Past Surgical History AICD: No Joint Replacement: No Pacemaker: No Social History Alcohol Use: Yes (daily) Tobacco Use: No Substance Use: No Allergies-Medications (Allergen,Severity, Reaction): Coded Allergies: No Known Allergies (Verified Allergy, Unknown, 06/21/17) Reported Meds & Prescriptions Reported Meds & Active Scripts Active Norvasc (Amlodipine Besylate) 5 Mg Tab 5 Mg PO DAILY Omeprazole 20 Mg Tab 20 Mg PO DAILY Review of Systems Except as stated in HPI: all other systems reviewed are Neg Physical Exam Narrative GENERAL: patient is laying in bed in no acute distress, thin bordering on cachectic. SKIN: Warm and dry. HEAD: Atraumatic. Normocephalic. EYES: Pupils equal, round and reactive. The patient has episodic horizontal nystagmus lasting roughly 15-30 seconds as well as No scleral icterus. No injection or drainage. ENT: No nasal bleeding or discharge. Mucous membranes pink and moist. NECK: Trachea midline. No JVD. CARDIOVASCULAR: Regular rate and rhythm with occasional premature beats RESPIRATORY: No accessory muscle use. Clear to auscultation. Breath sounds equal bilaterally. GASTROINTESTINAL: Abdomen soft, non-tender, nondistended. Hepatic and splenic margins not palpable. MUSCULOSKELETAL: Extremities without clubbing, cyanosis, or edema. No obvious deformities. NEUROLOGICAL: Awake and alert. No obvious cranial nerve deficits. Motor grossly within normal limits. Five out of 5 muscle strength in the arms and legs. Normal speech. no ataxia. Horizontal nystagmus noted. Ambulates with even narrow based gait. PSYCHIATRIC: Appropriate mood and affect; insight and judgment normal. Alert and awake and oriented Data Data Last Documented VS Vital Signs Date Time Temp Pulse Resp B/P (MAP) Pulse Ox O2 Delivery O2 Flow Rate FiO2 06/28/17 10:17 Room Air 06/28/17 10:13 97.8 85 18 168/99 (122) 99 Orders Orders Ammonia (06/28/17 10:26) Complete Blood Count With Diff (06/28/17 10:26) Comprehensive Metabolic Panel (06/28/17 10:26) Creatine Kinase (Cpk) (06/28/17 10:26) Prothrombin Time / Inr (Pt) (06/28/17 10:26) Act Partial Throm Time (Ptt) (06/28/17 10:26) Troponin I (06/28/17 10:26) Thyroid Stimulating Hormone (06/28/17 10:26) Urinalysis - C+S If Indicated (06/28/17 10:26) Ct Brain W/O Iv Contrast(Rout) (06/28/17 10:26) Blood Glucose (06/28/17 10:26) Ecg Monitoring (06/28/17 10:26) Iv Access Insert/Monitor (06/28/17 10:26) Oximetry (06/28/17 10:26) Sodium Chloride 0.9% Flush (Ns Flush) (06/28/17 10:30) Sodium Chlor 0.9% 1000 Ml Inj (Ns 1000 M (06/28/17 10:26) Drug Screen, Random Urine (06/28/17 10:26) Alcohol (Ethanol) (06/28/17 10:26) Tylenol (Acetaminophen) (06/28/17 10:26) Salicylates (Aspirin) (06/28/17 10:26) CKMB (06/28/17 10:20) CKMB% (06/28/17 10:20) Potassium Chlor 20 Meq Premix (Kcl 20 Me (06/28/17 13:00) Potassium Chloride (Kcl) (06/28/17 12:15) Cath For Specimen (06/28/17 12:11) Ed Discharge Order (06/28/17 13:04) Urine Culture (06/28/17 12:33) Labs Laboratory Tests Test 06/28/17 10:20 06/28/17 12:33 White Blood Count 10.6 TH/MM3 Red Blood Count 4.25 MIL/MM3 Hemoglobin 13.5 GM/DL Hematocrit 39.5 % Mean Corpuscular Volume 92.9 FL Mean Corpuscular Hemoglobin 31.7 PG Mean Corpuscular Hemoglobin Concent 34.1 % Red Cell Distribution Width 13.6 % Platelet Count 315 TH/MM3 Mean Platelet Volume 8.4 FL Neutrophils (%) (Auto) 87.2 % Lymphocytes (%) (Auto) 8.6 % Monocytes (%) (Auto) 3.1 % Eosinophils (%) (Auto) 0.1 % Basophils (%) (Auto) 1.0 % Neutrophils # (Auto) 9.2 TH/MM3 Lymphocytes # (Auto) 0.9 TH/MM3 Monocytes # (Auto) 0.3 TH/MM3 Eosinophils # (Auto) 0.0 TH/MM3 Basophils # (Auto) 0.1 TH/MM3 CBC Comment DIFF FINAL Differential Comment Prothrombin Time 14.6 SEC Prothromb Time International Ratio 1.3 RATIO Activated Partial Thromboplast Time 25.7 SEC Blood Urea Nitrogen 16 MG/DL Creatinine 1.34 MG/DL Random Glucose 139 MG/DL Total Protein 7.9 GM/DL Albumin 3.4 GM/DL Calcium Level 7.5 MG/DL Alkaline Phosphatase 84 U/L Aspartate Amino Transf (AST/SGOT) 37 U/L Alanine Aminotransferase (ALT/SGPT) 24 U/L Total Bilirubin 0.7 MG/DL Sodium Level 139 MEQ/L Potassium Level 2.7 MEQ/L Chloride Level 100 MEQ/L Carbon Dioxide Level 25.9 MEQ/L Anion Gap 13 MEQ/L Estimat Glomerular Filtration Rate 63 ML/MIN Ammonia LESS THAN 10 MCMOL/L Total Creatine Kinase 998 U/L Creatine Kinase MB 1.0 NG/ML Creatine Kinase MB % 0.1 % Troponin I 0.02 NG/ML Thyroid Stimulating Hormone 3rd Gen 1.120 uIU/ML Salicylates Level LESS THAN 1.7 MG/DL Acetaminophen Level LESS THAN 2.0 MCG/ML Ethyl Alcohol Level 3 MG/DL Urine Color YELLOW Urine Turbidity HAZY Urine pH 6.0 Urine Specific [place] 1.016 Urine Protein 30 mg/dL Urine Glucose (UA) NEG mg/dL Urine Ketones TRACE mg/dL Urine Occult Blood TRACE Urine Nitrite NEG Urine Bilirubin NEG Urine Urobilinogen 2.0 MG/DL Urine Leukocyte Esterase LARGE Urine RBC 4 /hpf Urine WBC 144 /hpf Urine WBC Clumps FEW Urine Bacteria MANY /hpf Urine Mucus FEW /lpf Microscopic Urinalysis Comment CATH-CULTURE IND Urine Opiates Screen NEG Urine Barbiturates Screen NEG Urine Amphetamines Screen NEG Urine Benzodiazepines Screen NEG Urine Cocaine Screen POS Urine Cannabinoids Screen POS MDM Medical Decision Making Medical Screen Exam Complete: Yes Emergency Medical Condition: Yes Differential Diagnosis Syncope, TIA, substance abuse. Narrative Course Patient roomed in emergency department, repeat workup today shows no obvious source of his symptoms. Given his recent history and this is second presentation for similar symptoms I highly recommended to him again that he stay in the hospital. He is alert and awake and oriented and after we discussed the risks of signing out AMA including becoming permanently disabled, life-support dependent or even he verbalized understanding and wrist to go home. At this time he is alert and awake and oriented is able to make his own decisions there is no indication to keep him against his will. He was catheterized prior to discharge. His potassium was low and IV potassium infusion was ordered though he refused the IV potassium. He did take by mouth potassium. Diagnosis Primary Impression: Syncope Additional Impression: Hypokalemia Disposition: 07 AGAINST MEDICAL ADVICE Condition: Stable Bert Castaneda MD Jun 28, 2017 10:28
[2017-06-28] MEDS ORDERED: SODIUM CHLORIDE 0.9% FLUSH 5 ML FLUSH IV FLUSH PRN (10:30)
[2017-06-28 11:22] LABS: AUTOMATED NEUTROPHIL # 9.2 TH/MM3 (1.8-7.7); BASOPHIL # 0.1 TH/MM3 (0-0.2); EOSINOPHIL % 0.1 % (0.0-4.0); HEMATOCRIT 39.5 % (39.0-51.0); HEMO FLAGS DIFF FINAL; LYMPH % 8.6 % (9.0-44.0); LYMPHOCYTE # 0.9 TH/MM3 (1.0-4.8); MEAN CELL VOLUME 92.9 FL (80.0-100.0); MEAN CORPUSCULAR HEMOGLOBIN 31.7 PG (27.0-34.0); MEAN CORPUSCULAR HGB CONC 34.1 % (32.0-36.0); MONO % 3.1 % (0.0-8.0); NEUT % 87.2 % (16.0-70.0); PLATELET COUNT 315 TH/MM3 (150-450); RED BLOOD COUNT 4.25 MIL/MM3 (4.50-5.90); RED CELL DISTRIBUTION WIDTH 13.6 % (11.6-17.2); WHITE BLOOD COUNT 10.6 TH/MM3 (4.0-11.0)
--- NOTE | 2017-06-28 11:24 | RADRPT ---
EXAM DATE/TIME: 06/28/2017 11:11 [facility] COMPARISON: CT BRAIN W/O CONTRAST, June 21, 2017, 11:53. INDICATIONS : Generalized weakness and dizziness. RADIATION DOSE: 30.59 CTDIvol (mGy) MEDICAL HISTORY : Seizures. Cardiovascular disease Hypertension.Prostate cancer. SURGICAL HISTORY : None. ENCOUNTER: Initial ACUITY: 1 day PAIN SCALE: 0/10 LOCATION: cranial TECHNIQUE: Multiple contiguous axial images were obtained of the head. Using automated exposure control and adj ustment of the mA and/or kV according to patient size, radiation dose was kept as low as reasonably a chievable to obtain optimal diagnostic quality images. DICOM format image data is available electro nically for review and comparison. FINDINGS: CEREBRUM: The ventricles are normal for age. No evidence of midline shift, mass lesion, hemorrhage or acute in farction. No extra-axial fluid collections are seen. POSTERIOR FOSSA: The cerebellum and brainstem are intact. The 4th ventricle is midline. The cerebellopontine angle i s unremarkable. EXTRACRANIAL: The visualized portion of the orbits is intact. SKULL: The calvaria is intact. No evidence of skull fracture. CONCLUSION: Normal examination except for trace fluid right maxillary sinus. Macrelino Llanes MD on June 28, 2017 at 11:21 Board Certified Radiologist. This report was verified electronically.
[2017-06-28 11:32] LABS: APTT (PATIENT) 25.7 SEC (24.3-30.1); INTERNATIONAL NORMALIZED RATIO 1.3 RATIO; PROTHROMBIN TIME - PATIENT 14.6 SEC (9.8-11.6)
[2017-06-28 11:47] LABS: ALT (GPT) 24 U/L (12-78); ANION GAP 13 MEQ/L (5-15); AST (GOT) 37 U/L (15-37); BICARBONATE 25.9 MEQ/L (21.0-32.0); BLOOD UREA NITROGEN 16 MG/DL (7-18); CHLORIDE 100 MEQ/L (98-107); GLOMERULAR FILTRATION RATE 63 ML/MIN (>89); SODIUM (NA) 139 MEQ/L (136-145)
[2017-06-28 11:48] LABS: ALCOHOL 3 MG/DL (0-5)
[2017-06-28 11:51] LABS: POTASSIUM 2.7 MEQ/L (3.5-5.1)
[2017-06-28 11:53] LABS: ACETAMINOPHEN LESS THAN 2.0 MCG/ML (10.0-30.0); ALKALINE PHOSPHATASE 84 U/L (45-117); CREATINE KINASE 998 U/L (39-308); TOTAL BILIRUBIN ADULT 0.7 MG/DL (0.2-1.0)
[2017-06-28] MEDS ORDERED: POTASSIUM CHLORIDE 20 MEQ CONTROLLED RELEASE TAB PO ONE (12:15)
[2017-06-28] MEDS ORDERED: POTASSIUM CHLOR 20 MEQ PREMIX 100 ML IV ONE (13:00)
[2017-06-28 13:06] LABS: BACTERIA, URINE MANY /hpf; BLOOD, URINE TRACE (NEG); GLUCOSE,URINE NEG (NEG); KETONE, URINE TRACE mg/dL (NEG); MUCUS URINE FEW /lpf (OCC); NITRITE,URINE NEG (NEG); URINE COLOR YELLOW (YELLW/STRAW)
[2017-06-28 13:07] LABS: COMMENT (UR) CATH-CULTURE IND; CULTURE IF INDICATED CATH CULTURE IND
--- NOTE | 2017-07-03 10:51 | EKG ---
Date Performed: 06/28/2017 Time Performed: 10:17:03 PTAGE: 77 years EKG: Sinus rhythm WITH SHORT SD INTERVAL NONSPECIFIC ST & T-WAVE ABNORMALITY BORDERLINE ECG PREVIOUS TRACING : 06/21/2017 12.28 DOCTOR: Marcelino Ibanez Interpretating Date/Time 07/03/2017 10:49:01
[2017-07-10] MEDS ORDERED: NITR1CAP37 PO (09:38)
== END 2017-06-28 13:05 | disposition left against medical advice (07) ==
LOC: NEPE 09:55
DX: R55 Syncope and collapse (principal); E87.6 Hypokalemia; N39.0 Urinary tract infection, site not specified; B96.20 Unspecified Escherichia coli [E. coli] as the cause of diseases classified elsewhere; I10 Essential (primary) hypertension; M19.90 Unspecified osteoarthritis, unspecified site; R94.31 Abnormal electrocardiogram [ECG] [EKG]; Z79.899 Other long term (current) drug therapy; Z16.29 Resistance to other single specified antibiotic; Z16.23 Resistance to quinolones and fluoroquinolones
CPT/HCPCS: 70450; 80053; 80307; 81001; 82140; 82550; 82552; 84443; 84484; 85025; 85610; 85730; 87077; 87086; 87186; 93005; 96360; 99285; J7030

== ENCOUNTER 2017-09-26 16:31 | Inpatient (IN) | payer MEDICARE, MEDICAID ==
[~2017-09-26] VITALS: Ht 170.2 cm; Wt 56.5 kg
[~2017-09-26 16:31] MED LIST changes: +NITR1CAP37 PO
[2017-09-26] MEDS ORDERED: SODIUM CHLOR 0.9% 1000 ML INJ 1,000 ML IV SCH ×2 (16:48→20:00)
[2017-09-26 17:00] VITALS: BP 153/67; PULSE 121; RESP 16; TEMP 97.5
[2017-09-26] MEDS ORDERED: LORazepam 2 MG/ML VIAL IV PUSH ONE ×2 (17:00→18:30)
[2017-09-26 17:03] VITALS: BP 153/67; PULSE 123; RESP 16; TEMP 97.5
[2017-09-26] MEDS ORDERED: MAGN400T2 PO (17:10)
--- NOTE | 2017-09-26 17:12 | PD ---
HPI Chief Complaint: AMS, fever, dizziness Time Seen by Provider: 16:47 Travel History International Travel<30 days: No Contact w/Intl Traveler<30days: No History of Present Illness HPI 77-year-old male presents emergency department via [facility] from home with confusion for approximately 2 weeks. States that his nephews were concerned about him. There is very limited history on this patient as patient initially was unable to answer my questions and he was rather irritable. Patient denies fever, chills, chest pain, shortness of breath. When asked questions patient becomes agitated and says "I do not know". I asked about his alcohol history and he says that he drinks alcohol regularly but has not had a drink" quite a while". Patient is unable to quantify this. PFSH Past Medical History Arthritis: Yes Blood Disorders: No Cancer: Yes (PROSTATE) Cardiovascular Problems: Yes Diminished Hearing: No Endocrine: No Gastrointestinal Disorders: Yes GERD: Yes Genitourinary: Yes (unable to urinate) Hypertension: Yes Immune Disorder: No Musculoskeletal: Yes Neurologic: No Psychiatric: No Respiratory: No Seizures: Yes (as a child) Past Surgical History AICD: No Joint Replacement: No Pacemaker: No Other Surgery: No Social History Alcohol Use: Yes (3-4 BEERS/DAY) Tobacco Use: No Substance Use: Yes (MARIJUANA DAILY) Allergies-Medications (Allergen,Severity, Reaction): Coded Allergies: No Known Allergies (Verified Allergy, Unknown, 07/10/17) Reported Meds & Prescriptions Reported Meds & Active Scripts Active Omeprazole 20 Mg Tab 20 Mg PO DAILY Norvasc (Amlodipine Besylate) 5 Mg Tab 5 Mg PO DAILY Reported Magnesium Oxide 400 Mg Tab 400 Mg PO DAILY Review of Systems ROS Limitations: Altered Mental Status, Uncooperative, Poor Historian Except as stated in HPI: all other systems reviewed are Neg Physical Exam Narrative GENERAL: Well developed, thin male very anxious appearing and tremulous SKIN: Focused skin assessment warm/dry. Poor skin turgor HEAD: Atraumatic. Normocephalic. EYES: Pupils equal and round. No scleral icterus. No injection or drainage. Borderline exophthalmos. EOMI ENT: No nasal bleeding or discharge. Mucous membranes pink and dry NECK: Trachea midline. No JVD. No lymphadenopathy CARDIOVASCULAR: Tachycardic and regular. No murmur appreciated. RESPIRATORY: No accessory muscle use. Clear to auscultation. Breath sounds equal bilaterally. GASTROINTESTINAL: Abdomen soft, non-tender, nondistended. MUSCULOSKELETAL: No obvious deformities. No clubbing. No cyanosis. No edema. Homans sign negative bilaterally NEUROLOGICAL: Awake and alert. No obvious cranial nerve deficits. Motor grossly within normal limits. Normal speech. PSYCHIATRIC: Appropriate mood and affect; insight and judgment normal. Data Data Last Documented VS Vital Signs Date Time Temp Pulse Resp B/P (MAP) Pulse Ox O2 Delivery O2 Flow Rate FiO2 09/26/17 18:53 98.2 112 20 139/70 (93) 100 Nasal Cannula 2.00 Orders Orders Electrocardiogram (09/26/17 16:48) Ammonia (09/26/17 16:48) Complete Blood Count With Diff (09/26/17 16:48) Comprehensive Metabolic Panel (09/26/17 16:48) Prothrombin Time / Inr (Pt) (09/26/17 16:48) Act Partial Throm Time (Ptt) (09/26/17 16:48) Troponin I (09/26/17 16:48) Thyroid Stimulating Hormone (09/26/17 16:48) Urinalysis - C+S If Indicated (09/26/17 16:48) Lactic Acid Sepsis Protocol (09/26/17 16:48) Blood Culture (09/26/17 16:48) Chest, Single Ap (09/26/17 16:48) Ct Brain W/O Iv Contrast(Rout) (09/26/17 16:48) Blood Glucose (09/26/17 16:48) Ecg Monitoring (09/26/17 16:48) Iv Access Insert/Monitor (09/26/17 16:48) Oximetry (09/26/17 16:48) Oxygen Administration (09/26/17 16:48) Sodium Chlor 0.9% 1000 Ml Inj (Ns 1000 M (09/26/17 16:48) Drug Screen, Random Urine (09/26/17 16:48) Alcohol (Ethanol) (09/26/17 16:48) Ckmb (Isoenzyme) Profile (09/26/17 16:48) Lorazepam Inj (Ativan Inj) (09/26/17 17:00) Cath For Specimen (09/26/17 16:57) Dextrose 50% In Jalen (Syr) Inj (D50w (Syr (09/26/17 17:30) Thiamine Inj (Thiamine Inj) (09/26/17 18:00) Dextrose 50% In Jalen (Vial) Inj (D50w (Vi (09/26/17 18:00) Dextrose 10% Inj (D... W/Sodium Chloride (09/26/17 18:00) Insert Temp Sensing [place] Cath (09/26/17 17:53) Glucagon Inj (Glucagon Inj) (09/26/17 18:00) Magnesium (Mg) (09/26/17 17:54) Lorazepam Inj (Ativan Inj) (09/26/17 18:30) Lactulose Liq (Lactulose Liq) (09/26/17 18:30) Vancomycin Inj (Vancomycin Inj) (09/26/17 18:30) Piperacil-Tazo 4.5 Gm Premix (Zosyn 4.5 (09/26/17 18:30) Sodium Chlor 0.9% 1000 Ml Inj (Ns 1000 M (09/26/17 18:30) CKMB (09/26/17 17:35) CKMB% (09/26/17 17:35) Magnesium Sulfate 1 Gm Premix (Magnesium (09/26/17 20:00) Lactic Acid Sepsis Protocol (09/27/17 03:30) Admit Order (Ed Use Only) (09/26/17 19:10) Labs Laboratory Tests Test 09/26/17 17:35 09/26/17 19:00 White Blood Count 9.3 TH/MM3 Red Blood Count 4.33 MIL/MM3 Hemoglobin 13.4 GM/DL Hematocrit 40.5 % Mean Corpuscular Volume 93.4 FL Mean Corpuscular Hemoglobin 30.8 PG Mean Corpuscular Hemoglobin Concent 33.0 % Red Cell Distribution Width 13.3 % Platelet Count 272 TH/MM3 Mean Platelet Volume 8.6 FL Neutrophils (%) (Auto) 76.6 % Lymphocytes (%) (Auto) 18.0 % Monocytes (%) (Auto) 5.1 % Eosinophils (%) (Auto) 0.0 % Basophils (%) (Auto) 0.3 % Neutrophils # (Auto) 7.1 TH/MM3 Lymphocytes # (Auto) 1.7 TH/MM3 Monocytes # (Auto) 0.5 TH/MM3 Eosinophils # (Auto) 0.0 TH/MM3 Basophils # (Auto) 0.0 TH/MM3 CBC Comment DIFF FINAL Differential Comment Prothrombin Time 14.3 SEC Prothromb Time International Ratio 1.4 RATIO Activated Partial Thromboplast Time 29.7 SEC Blood Urea Nitrogen 64 MG/DL Creatinine 6.90 MG/DL Random Glucose 125 MG/DL Total Protein 9.1 GM/DL Albumin 3.8 GM/DL Calcium Level 6.3 MG/DL Alkaline Phosphatase 65 U/L Aspartate Amino Transf (AST/SGOT) 74 U/L Alanine Aminotransferase (ALT/SGPT) 29 U/L Total Bilirubin 0.8 MG/DL Sodium Level 132 MEQ/L Potassium Level 5.2 MEQ/L Chloride Level 92 MEQ/L Carbon Dioxide Level 17.2 MEQ/L Anion Gap 23 MEQ/L Estimat Glomerular Filtration Rate 10 ML/MIN Lactic Acid Level 13.7 mmol/L Protein Corrected Calcium MG/DL Magnesium Level 0.5 MG/DL Ammonia 63 MCMOL/L Total Creatine Kinase 955 U/L Creatine Kinase MB 5.9 NG/ML Creatine Kinase MB % 0.6 % Troponin I LESS THAN 0.02 NG/ML Thyroid Stimulating Hormone 3rd Gen 2.030 uIU/ML Ethyl Alcohol Level LESS THAN 3 MG/DL Urine Color YELLOW Urine Turbidity HAZY Urine pH 5.5 Urine Specific [place] 1.015 Urine Protein 30 mg/dL Urine Glucose (UA) TRACE mg/dL Urine Ketones NEG mg/dL Urine Occult Blood SMALL Urine Nitrite NEG Urine Bilirubin NEG Urine Urobilinogen LESS THAN 2.0 MG/DL Urine Leukocyte Esterase LARGE Urine RBC 24 /hpf Urine WBC 126 /hpf Urine WBC Clumps FEW Urine Bacteria MANY /hpf Urine Mucus MOD /lpf Microscopic Urinalysis Comment CATH-CULTURE IND Urine Opiates Screen NEG Urine Barbiturates Screen NEG Urine Amphetamines Screen NEG Urine Benzodiazepines Screen NEG Urine Cocaine Screen POS Urine Cannabinoids Screen NEG MDM Medical Decision Making Medical Screen Exam Complete: Yes Emergency Medical Condition: Yes Differential Diagnosis CVA, TIA, polysubstance abuse, alcohol intoxication, delirium tremens, sepsis Narrative Course 77-year-old male presents emergency department via [facility] from home with confusion for approximately 2 weeks. Evac states he had a BLG 61. States that his nephews were concerned about him. There is very limited history on this patient as patient initially was unable to answer my questions and he was rather irritable. Patient denies fever, chills, chest pain, shortness of breath. When asked questions patient becomes agitated and says "I do not know" . I asked about his alcohol history and he says that he drinks alcohol regularly but has not had a drink" quite a while". Patient is unable to quantify this. After a brief review of EMR, it appears the patient has chronic urinary retention, history of TIA (06/2017), urosepsis and cocaine use (04/2017). He was also found to have an LIZZIE of 1:1280. EKG demonstrates sinus tachycardia with occasional PVCs, no STEMI changes. Vital signs-difficulty with obtaining SaO2. BP stable. Initial heart rate 145. Last Impressions Chest X-Ray 09/26/17 1648 Signed Impressions: Service Date/Time: Tuesday, September 26, 2017 16:53 - CONCLUSION: The lungs are clear. Keven Courtney MD First 1 L IV fluids initiated and heart rate decreased to 122, remained steady throughout the visit. [id number] glucose in the ER 21. 1amp D50 administered, repeat at 21. Oral intake of juice, Thiamine 100mg & repeat D50 admin. D10 1/2NS ordered 50mL/hr, canceled as there was an equipment malfunction. Patient's actual blood sugar is 340. Repeat at 150. Will monitor closely. A total of 2 amps of D50, thiamine 100 mg, 3 L IV fluid administered in the emergency department today. Total of 2 mg Ativan administered for tremors. Concern for delirium tremens. Lactulose canceled as patient requires hydration. Critical value lactic acid 13.7 called to the emergency department. Empiric antibiotics immediately ordered. Vancomycin 1750mg and Zosyn 4.5mg. UA unavailable at this time, Suspected urosepsis with septic shock. I spoke with Dr. Aragon regarding this patient. He is admitted for JACOBO, urosepsis , hepatic encephalopathy, ammonemia, lactic acidosis. Ct Head and UA pending as of admission. Sepsis Criteria SIRS Criteria (2 or more): Heart rate over 90 Sepsis Criteria (SIRS+source): Infect source susp/known Severe Sepsis (+one): Lactate >2 Septic Shock Criteria: Lactic acid >=4 Criteria Outcome: Meets severe sepsis criteria Physician Communication Physician Communication Spoke with Dr. Aragon who is aware of this patient. Diagnosis Primary Impression: Increased ammonia level Additional Impressions: Hepatic encephalopathy Lactic acidosis UTI (urinary tract infection) Qualified Codes: N30.00 - Acute cystitis without hematuria Acute kidney injury Admitting Information Admitting Physician Requests: Admit Condition: Serious Malia Jamison Sep 26, 2017 17:12
[2017-09-26 17:14] VITALS: BP 153/67; PULSE 120; RESP 16; TEMP 97.5
[2017-09-26] MEDS ORDERED: DEXTROSE 50% IN WATER 50 ML SYRINGE IV PUSH ONE (17:30)
--- NOTE | 2017-09-26 17:31 | RADRPT ---
EXAM DATE/TIME: 09/26/2017 16:53 [facility] COMPARISON: CHEST SINGLE AP, March 03, 2017, 11:49. INDICATIONS : Syncope. Altered mental status. MEDICAL HISTORY : Cardiovascular disease. Hypertension Carcinoma, prostatic. Seizures SURGICAL HISTORY : None. ENCOUNTER: Initial ACUITY: 1 day PAIN SCORE: Non-responsive. LOCATION: Bilateral chest FINDINGS: A single view of the chest demonstrates the lungs to be symmetrically aerated without evidence of mas s, infiltrate or effusion. No evidence of pneumothorax. The cardiomediastinal contours are unremark able. Osseous structures are intact. CONCLUSION: The lungs are clear. Keven Courtney MD on September 26, 2017 at 17:29 Board Certified Radiologist. This report was verified electronically.
[2017-09-26 17:57] LABS: AUTOMATED NEUTROPHIL # 7.1 TH/MM3 (1.8-7.7); BASOPHIL % 0.3 % (0.0-2.0); HEMATOCRIT 40.5 % (39.0-51.0); HEMOGLOBIN 13.4 GM/DL (13.0-17.0); LYMPHOCYTE # 1.7 TH/MM3 (1.0-4.8); MEAN CELL VOLUME 93.4 FL (80.0-100.0); MEAN CORPUSCULAR HEMOGLOBIN 30.8 PG (27.0-34.0); MEAN PLATELET VOLUME 8.6 FL (7.0-11.0); MONO % 5.1 % (0.0-8.0); MONOCYTE # 0.5 TH/MM3 (0-0.9); NEUT % 76.6 % (16.0-70.0); PLATELET COUNT 272 TH/MM3 (150-450); RED BLOOD COUNT 4.33 MIL/MM3 (4.50-5.90); RED CELL DISTRIBUTION WIDTH 13.3 % (11.6-17.2); WHITE BLOOD COUNT 9.3 TH/MM3 (4.0-11.0)
--- NOTE | 2017-09-26 17:58 | PD ---
Data Data Last Documented VS Vital Signs Date Time Temp Pulse Resp B/P (MAP) Pulse Ox O2 Delivery O2 Flow Rate FiO2 09/26/17 18:53 98.2 112 20 139/70 (93) 100 Nasal Cannula 2.00 Orders Orders Electrocardiogram (09/26/17 16:48) Ammonia (09/26/17 16:48) Complete Blood Count With Diff (09/26/17 16:48) Comprehensive Metabolic Panel (09/26/17 16:48) Prothrombin Time / Inr (Pt) (09/26/17 16:48) Act Partial Throm Time (Ptt) (09/26/17 16:48) Troponin I (09/26/17 16:48) Thyroid Stimulating Hormone (09/26/17 16:48) Urinalysis - C+S If Indicated (09/26/17 16:48) Lactic Acid Sepsis Protocol (09/26/17 16:48) Blood Culture (09/26/17 16:48) Chest, Single Ap (09/26/17 16:48) Ct Brain W/O Iv Contrast(Rout) (09/26/17 16:48) Blood Glucose (09/26/17 16:48) Ecg Monitoring (09/26/17 16:48) Iv Access Insert/Monitor (09/26/17 16:48) Oximetry (09/26/17 16:48) Oxygen Administration (09/26/17 16:48) Sodium Chlor 0.9% 1000 Ml Inj (Ns 1000 M (09/26/17 16:48) Drug Screen, Random Urine (09/26/17 16:48) Alcohol (Ethanol) (09/26/17 16:48) Ckmb (Isoenzyme) Profile (09/26/17 16:48) Lorazepam Inj (Ativan Inj) (09/26/17 17:00) Cath For Specimen (09/26/17 16:57) Dextrose 50% In Jalen (Syr) Inj (D50w (Syr (09/26/17 17:30) Thiamine Inj (Thiamine Inj) (09/26/17 18:00) Dextrose 50% In Jalen (Vial) Inj (D50w (Vi (09/26/17 18:00) Dextrose 10% Inj (D... W/Sodium Chloride (09/26/17 18:00) Insert Temp Sensing [place] Cath (09/26/17 17:53) Glucagon Inj (Glucagon Inj) (09/26/17 18:00) Magnesium (Mg) (09/26/17 17:54) Lorazepam Inj (Ativan Inj) (09/26/17 18:30) Lactulose Liq (Lactulose Liq) (09/26/17 18:30) Vancomycin Inj (Vancomycin Inj) (09/26/17 18:30) Piperacil-Tazo 4.5 Gm Premix (Zosyn 4.5 (09/26/17 18:30) Sodium Chlor 0.9% 1000 Ml Inj (Ns 1000 M (09/26/17 18:30) CKMB (09/26/17 17:35) CKMB% (09/26/17 17:35) Magnesium Sulfate 1 Gm Premix (Magnesium (09/26/17 20:00) Lactic Acid Sepsis Protocol (09/27/17 03:30) Lactic Acid Sepsis Protocol (09/27/17 07:30) Admit Order (Ed Use Only) (09/26/17 19:10) Labs Laboratory Tests Test 09/26/17 17:35 09/26/17 19:00 White Blood Count 9.3 TH/MM3 Red Blood Count 4.33 MIL/MM3 Hemoglobin 13.4 GM/DL Hematocrit 40.5 % Mean Corpuscular Volume 93.4 FL Mean Corpuscular Hemoglobin 30.8 PG Mean Corpuscular Hemoglobin Concent 33.0 % Red Cell Distribution Width 13.3 % Platelet Count 272 TH/MM3 Mean Platelet Volume 8.6 FL Neutrophils (%) (Auto) 76.6 % Lymphocytes (%) (Auto) 18.0 % Monocytes (%) (Auto) 5.1 % Eosinophils (%) (Auto) 0.0 % Basophils (%) (Auto) 0.3 % Neutrophils # (Auto) 7.1 TH/MM3 Lymphocytes # (Auto) 1.7 TH/MM3 Monocytes # (Auto) 0.5 TH/MM3 Eosinophils # (Auto) 0.0 TH/MM3 Basophils # (Auto) 0.0 TH/MM3 CBC Comment DIFF FINAL Differential Comment Prothrombin Time 14.3 SEC Prothromb Time International Ratio 1.4 RATIO Activated Partial Thromboplast Time 29.7 SEC Blood Urea Nitrogen 64 MG/DL Creatinine 6.90 MG/DL Random Glucose 125 MG/DL Total Protein 9.1 GM/DL Albumin 3.8 GM/DL Calcium Level 6.3 MG/DL Alkaline Phosphatase 65 U/L Aspartate Amino Transf (AST/SGOT) 74 U/L Alanine Aminotransferase (ALT/SGPT) 29 U/L Total Bilirubin 0.8 MG/DL Sodium Level 132 MEQ/L Potassium Level 5.2 MEQ/L Chloride Level 92 MEQ/L Carbon Dioxide Level 17.2 MEQ/L Anion Gap 23 MEQ/L Estimat Glomerular Filtration Rate 10 ML/MIN Lactic Acid Level 13.7 mmol/L Protein Corrected Calcium MG/DL Magnesium Level 0.5 MG/DL Ammonia 63 MCMOL/L Total Creatine Kinase 955 U/L Creatine Kinase MB 5.9 NG/ML Creatine Kinase MB % 0.6 % Troponin I LESS THAN 0.02 NG/ML Thyroid Stimulating Hormone 3rd Gen 2.030 uIU/ML Ethyl Alcohol Level LESS THAN 3 MG/DL Urine Color YELLOW Urine Turbidity HAZY Urine pH 5.5 Urine Specific [place] 1.015 Urine Protein 30 mg/dL Urine Glucose (UA) TRACE mg/dL Urine Ketones NEG mg/dL Urine Occult Blood SMALL Urine Nitrite NEG Urine Bilirubin NEG Urine Urobilinogen LESS THAN 2.0 MG/DL Urine Leukocyte Esterase LARGE Urine RBC 24 /hpf Urine WBC 126 /hpf Urine WBC Clumps FEW Urine Bacteria MANY /hpf Urine Mucus MOD /lpf Microscopic Urinalysis Comment CATH-CULTURE IND Urine Opiates Screen NEG Urine Barbiturates Screen NEG Urine Amphetamines Screen NEG Urine Benzodiazepines Screen NEG Urine Cocaine Screen POS Urine Cannabinoids Screen NEG MDM Supervised Visit with ANGELA: Yes Narrative Course I, Dr. Castaneda, have reviewed the advance practice practitioner's documentation and am in agreement, met with the patient face to face, made the diagnosis, and the medical decision making was done by me. *My assessment and Findings: Patient seen and examined by me in addition to Malia CARBALLO. Patient certainly is significantly altered, he is tremulous in our initial diagnostic impression of him may have been delirium tremens. A full septic workup was ordered with this patient as well and does show significant abnormal lab findings concluding a and acute kidney injury, lactic acidosis with a lactic acid of 13, chest x- ray was clear, remainder of his physical exam for me did not reveal any source of his fever. According to EMS the patient has been altered for the past few days, he has self cathed in the past for urinary retention and quite possibly the source of his fever is urine. The patient has no nuchal rigidity. He certainly is critically ill and have ordered vancomycin and Zosyn. He is received a total of 3 L of fluid in the emergency department and is critically ill. I have paged Dr. Aragon and Malia has discussed this patient with her and she will admit the patient. CT head still pending. The patient also had been noted to be hypoglycemic for EMS into the 60s, for us he has been as low as 20 but has not been diaphoretic, he was bolus D50 and repeat glucose again was in the 20s, he was bolused an additional D50 ampule. The patient's blood sugar was rechecked using a different glucometer and now is in the 350 range. It is quite possible that this was spurious however the blood sugars again starting to decline into the 150s range. All this was discussed with Dr. Aragon by Malia CARBALLO. The patient's ammonia level is also increased, initially Malia had ordered lactulose for this, we have discontinued this order as we will get the patient adequately hydrated prior to treating his ammonia level. Critical Care Narrative Aggregate critical care time was 35 minutes. Time to perform other separately billable procedures was not included in the critical care time. My time did not include minutes spent treating any other patients simultaneously or on activities that did not directly contribute to the patient's treatment. The services I provided to this patient were to treat and/or prevent clinically significant deterioration that could result in: , disability, organ failure I provided critical care services requiring my management, as noted below: I managed all this patient care including fluid, antibiotics, multiple reassessments management of blood sugar and discussion with the admitting physicians. I instructed Ms. Jamison which fluid orders to place. I also directly discussed this patient with Dr. Aragon. Chart data review, documentation time, medication orders and management, vital sign assessments/reviewing monitor data, ordering and reviewing lab tests, ordering and interpreting/reviewing x-rays and diagnostic studies, care of the patient and discussion of the patient with the admitting physicians. Diagnosis Primary Impression: Severe sepsis Additional Impressions: Lactic acidosis Acute kidney failure Dehydration Encephalopathy, toxic Hepatic encephalopathy Increased ammonia level Admitting Information Admitting Physician Requests: Admit Condition: Critical Bert Castaneda MD Sep 26, 2017 17:58
[2017-09-26] MEDS ORDERED: GLUCAGON 1 MG/ML VIAL IV PUSH ONE (18:00)
[2017-09-26] MEDS ORDERED: THIAMINE INJ 100 MG in SODIUM CHLORIDE 0.9% INJ 100 ML IV ONE (18:00)
[2017-09-26] MEDS ORDERED: SODIUM CHLORIDE 23.4% INJ 77 MEQ in DEXTROSE 10% INJ 1,000 ML IV SCH (18:00)
[2017-09-26] MEDS ORDERED: DEXTROSE 50% IN WATER 50 ML VIAL(D50) IV PUSH ONE ×2 (18:00→21:00)
[2017-09-26 18:12] LABS: LACTIC ACID SEPSIS PROTOCOL 13.7 mmol/L (0.4-2.0)
[2017-09-26 18:15] LABS: INTERNATIONAL NORMALIZED RATIO 1.4 RATIO; PROTHROMBIN TIME - PATIENT 14.3 SEC (9.8-11.6)
[2017-09-26 18:28] LABS: ALBUMIN 3.8 GM/DL (3.4-5.0); ALT (GPT) 29 U/L (12-78); AST (GOT) 74 U/L (15-37); BICARBONATE 17.2 MEQ/L (21.0-32.0); BLOOD UREA NITROGEN 64 MG/DL (7-18); CALCIUM 6.3 MG/DL (8.5-10.1); CHLORIDE 92 MEQ/L (98-107); GLOMERULAR FILTRATION RATE 10 ML/MIN (>89); GLUCOSE,RANDOM 125 MG/DL (74-106); SODIUM (NA) 132 MEQ/L (136-145)
[2017-09-26] MEDS ORDERED: SODIUM CHLOR 0.9% 1000 ML INJ 1,000 ML IV ONE ×2 (18:30→19:15)
[2017-09-26] MEDS ORDERED: VANCOMYCIN INJ 1,750 MG in SODIUM CHLORID 0.9% 500 ML INJ 500 ML IV ONE (18:30)
[2017-09-26] MEDS ORDERED: LACTULOSE SYRUP 20 GM/30 ML CUP PO ONE (18:30)
[2017-09-26] MEDS ORDERED: PIPERACIL-TAZO 4.5 GM PREMIX 100 ML IV ONE (18:30)
[2017-09-26 18:38] LABS: ALKALINE PHOSPHATASE 65 U/L (45-117); TOTAL BILIRUBIN ADULT 0.8 MG/DL (0.2-1.0); TROPONIN I LESS THAN 0.02 NG/ML (0.02-0.05)
[2017-09-26 18:41] LABS: TOTAL PROTEIN 9.1 GM/DL (6.4-8.2)
[2017-09-26 18:53] VITALS: BP 139/70; PULSE 112; RESP 20; TEMP 98.2; O2SAT 100
[2017-09-26 19:39] VITALS: BP 118/71; PULSE 98; RESP 20; TEMP 98.6; O2SAT 100
[2017-09-26 19:41] LABS: BACTERIA, URINE MANY /hpf; BILIRUBIN, URINE NEG (NEG); BLOOD, URINE SMALL (NEG); GLUCOSE,URINE TRACE mg/dL (NEG); KETONE, URINE NEG (NEG); MUCUS URINE MOD /lpf (OCC); NITRITE,URINE NEG (NEG); PH, URINE 5.5 (5.0-8.5); URINE COLOR YELLOW (YELLW/STRAW); URINE LEUKOCYTE ESTERASE LARGE (NEG); WHITE BLOOD CELL CLUMPS FEW
[2017-09-26] MEDS ORDERED: MAGNESIUM SULFATE 1 GM PREMIX 100 ML IV SCH ×2 (20:00→22:00)
--- NOTE | 2017-09-26 20:32 | HHI.HP ---
HPI Service Critical Care Medicine Primary Care Physician Unknown Admission Diagnosis Severe sepsis, urosepsis, lactic acidosis Diagnosis: Travel History International Travel<30 Days: No Contact w/Intl Traveler <30 Da: No Traveled to Known Affected Are: No History of Present Illness 77-year-old male with past medical history of hypertension, prostate cancer, urinary retention with self I/O cath, cocaine abuse, GERD, prior TIA, who presents to [facility] emergency department from home via [facility] complaining of 2 weeks of dizziness and weakness. History from patient is limited due to mental status. I attempted to contact family and was only able to get in touch his nephew Paul who states patient has been unable to ambulate, not eating very well for couple of weeks. He was not able to really elaborate any further. When patient presented to [place] he was afebrile, tachycardic in the 120s. Blood pressure was 153/76. It has trended down to 118/71 in emergency department. He has acute kidney injury with creatinine of 6.9, BUN 64. Potassium is 5.2. Lactic acid 13.7. He is hypomagnesemic with magnesium of 0.5. WBC 9.3 He has been intermittently hypoglycemic with glucose in the 20s in the emergency department and received multiple amps of D50. Repeat glucose was 125 but then down trended again. Buchanan catheter was inserted. There is 1100 of urine in the Buchanan bag, unclear how much of that was immediately on insertion. No reported seizure. Review of Systems ROS Limitations: Clinical Condition Past Family Social History Allergies: Coded Allergies: No Known Allergies (Verified Allergy, Unknown, 07/10/17) Past Medical History Hypertension Prostate cancer Urinary retention GERD Osteoarthritis TIA Cocaine abuse History of seizure during childhood Past Surgical History TURP 09/30/[address] Griffin pathology indicated adenocarcinoma Cystoscopy EGD and ERCP 04/27/17 Dr. Hardy Reported Medications Norvasc 5 mg by mouth daily Omeprazole 20 mill grams by mouth daily Magnesium Family History Unable to obtain from patient due to clinical condition. Nephew is not certain of significant family medical history. Social History Reportedly drinks 3-4 beers per day Uses marijuana Not Has 1 adult daughter whose name is Hailee Chacon. Contact information was provided for his nephew, Paul who was reached at [phone]. He is not aware of patient having any advance directives. Physical Exam Vital Signs Vital Signs Date Time Temp Pulse Resp B/P (MAP) Pulse Ox O2 Delivery O2 Flow Rate FiO2 09/26/17 19:39 98.6 98 20 118/71 (87) 100 Nasal Cannula 2.00 18 18:53 98.2 112 20 139/70 (93) 100 Nasal Cannula 2.00 09/26/17 17:14 Nasal Cannula 2.00 09/26/17 17:14 97.5 120 16 153/67 (95) Nasal Cannula 2.00 18 17:03 Nasal Cannula 2.00 09/26/17 17:03 97.5 123 16 153/67 (95) Nasal Cannula 2.00 09/26/17 17:00 97.5 121 16 153/67 (95) Physical Exam GENERAL: Very thin chronically ill appearing male who is sitting up in ED stretcher. SKIN: Warm and dry. HEAD: Atraumatic. Normocephalic. EYES: Pupils equal and round, 2 mm and sluggishly reactive bilaterally.. No scleral icterus. No injection or drainage. ENT: No nasal bleeding or discharge. Mucous membranes dry. NECK: Trachea midline. No JVD. CARDIOVASCULAR: Regular rate and rhythm currently rate in the 80s with sinus rhythm on the monitor.. No murmurs rubs or gallops. RESPIRATORY: Breathing comfortably now accessory muscle use. Clear to auscultation bilaterally. GASTROINTESTINAL: Abdomen soft, non-tender, nondistended. : Buchanan catheter in place with cloudy dark yellow urine output. MUSCULOSKELETAL: Extremities without clubbing, cyanosis, or edema. No obvious deformities. NEUROLOGICAL: Awakens to voice. Makes eye contact. No facial droop. Squeezes hand and move his legs to command. Answers questions yes/no. Oriented to self. No asterixis He had horizontal nystagmus more prominent while he was hypoglycemic Laboratory Laboratory Tests Test 09/26/17 17:35 09/26/17 19:00 White Blood Count 9.3 Red Blood Count 4.33 Hemoglobin 13.4 Hematocrit 40.5 Mean Corpuscular Volume 93.4 Mean Corpuscular Hemoglobin 30.8 Mean Corpuscular Hemoglobin Concent 33.0 Red Cell Distribution Width 13.3 Platelet Count 272 Mean Platelet Volume 8.6 Neutrophils (%) (Auto) 76.6 Lymphocytes (%) (Auto) 18.0 Monocytes (%) (Auto) 5.1 Eosinophils (%) (Auto) 0.0 Basophils (%) (Auto) 0.3 Neutrophils # (Auto) 7.1 Lymphocytes # (Auto) 1.7 Monocytes # (Auto) 0.5 Eosinophils # (Auto) 0.0 Basophils # (Auto) 0.0 CBC Comment DIFF FINAL Differential Comment Prothrombin Time 14.3 Prothromb Time International Ratio 1.4 Activated Partial Thromboplast Time 29.7 Blood Urea Nitrogen 64 Creatinine 6.90 Random Glucose 125 Total Protein 9.1 Albumin 3.8 Calcium Level 6.3 Alkaline Phosphatase 65 Aspartate Amino Transf (AST/SGOT) 74 Alanine Aminotransferase (ALT/SGPT) 29 Total Bilirubin 0.8 Sodium Level 132 Potassium Level 5.2 Chloride Level 92 Carbon Dioxide Level 17.2 Anion Gap 23 Estimat Glomerular Filtration Rate 10 Lactic Acid Level 13.7 Magnesium Level 0.5 Ammonia 63 Total Creatine Kinase 955 Creatine Kinase MB 5.9 Creatine Kinase MB % 0.6 Troponin I LESS THAN 0.02 Thyroid Stimulating Hormone 3rd Gen 2.030 Urine Color YELLOW Urine Turbidity HAZY Urine pH 5.5 Urine Specific [place] 1.015 Urine Protein 30 Urine Glucose (UA) TRACE Urine Ketones NEG Urine Occult Blood SMALL Urine Nitrite NEG Urine Bilirubin NEG Urine Urobilinogen LESS THAN 2.0 Urine Leukocyte Esterase LARGE Urine RBC 24 Urine WBC 126 Urine WBC Clumps FEW Urine Bacteria MANY Urine Mucus MOD Microscopic Urinalysis Comment CATH-CULTURE IND Urine Opiates Screen NEG Urine Barbiturates Screen NEG Urine Amphetamines Screen NEG Urine Benzodiazepines Screen NEG Urine Cocaine Screen POS Urine Cannabinoids Screen NEG Date/Time Source Procedure Growth Status 09/26/17 17:35 Blood Peripheral Aerobic Blood Culture Pending Received 09/26/17 17:35 Blood Peripheral Anaerobic Blood Culture Pending Received 09/26/17 19:00 Urine Catheterized Urine Urine Culture Pending Received Result Diagram: 09/26/17 1735 09/26/17 1735 Septic Shock Reassessment Septic shock perfusion: reassessment completed Caprini VTE Risk Assessment Caprini Risk Assessment Model Point Value = 1 Point Value = 2 Point Value = 3 Point Value = 5 Age 41-60 Minor surgery BMI > 25 kg/m2 Swollen legs Varicose veins or History of unexplained or recurrent spontaneous Oral contraceptives or hormone replacement Sepsis (< 1 month) Serious lung disease, including pneumonia (< 1 month) Abnormal pulmonary function Acute myocardial infarction Congestive heart failure (< 1 month) History of inflammatory bowel disease Medical patient at bed rest Age 61-74 Arthroscopic surgery Major open surgery (> 45 min) Laparoscopic surgery (> 45 min) Malignancy Confined to bed (> 72 hours) Immobilizing plaster cast Central venous access Age >= 75 History of VTE Family history of VTE Factor V Leiden Prothrombin [id number] Lupus anticoagulant Anticardiolipin antibodies Elevated serum homocysteine Heparin-induced thrombocytopenia Other congenital or acquired thrombophilia Stroke (< 1 month) Elective arthroplasty Hip, pelvis, or leg fracture Acute spinal cord injury (< 1 month) Prophylaxis Regimen Total Risk Factor Score Risk Level Prophylaxis Regimen 0-1 Low Early ambulation 2 Moderate Order ONE of the following: *Sequential Compression Device (SCD) *Heparin 5000 units SQ BID 3-4 Higher Order ONE of the following medications: *Heparin 5000 units SQ TID *Enoxaparin/Lovenox 40 mg SQ daily (WT < 150 kg, CrCl > 30 mL/min) *Enoxaparin/Lovenox 30 mg SQ daily (WT < 150 kg, CrCl > 10-29 mL/min) *Enoxaparin/Lovenox 30 mg SQ BID (WT < 150 kg, CrCl > 30 mL/min) AND/OR *Sequential Compression Device (SCD) 5 or more Highest Order ONE of the following medications: *Heparin 5000 units SQ TID (Preferred with Epidurals) *Enoxaparin/Lovenox 40 mg SQ daily (WT < 150 kg, CrCl > 30 mL/min) *Enoxaparin/Lovenox 30 mg SQ daily (WT < 150 kg, CrCl > 10-29 mL/min) *Enoxaparin/Lovenox 30 mg SQ BID (WT < 150 kg, CrCl > 30 mL/min) AND *Sequential Compression Device (SCD) Assessment and Plan Assessment and Plan NEURO: Cocaine abuse Marijuana abuse Hyperammonemia Alcohol abuse Received Ativan 1 mg IV in the emergency department CT brain -no acute abnormality Hyperammonemia noted, will hold off on lactulose for now and initiate if able to swallow and when acid/base/improved States he hasn't had a drink "in a while". Monitor for signs and symptoms of alcohol withdrawal. Ativan as needed Thiamine/multi vitamin/folic acid supplementation. RESP: Nasal cannula wean as tolerated CV: Severe sepsis Normotensive. Monitor blood pressure and heart rate. Serial lactic acid. Received 3 L normal saline bolus in the emergency department. IVF as per below GI: AST elevation Bedside swallow assessment. Speech therapy consult if needed. Check lipase FEN/RENAL: Acute kidney injury Hyponatremia Hyperkalemia Acute hypomagnesemia Acute anion gap metabolic acidemia with lactic acidemia. Has received 3 L normal saline in the emergency department. I expect potassium will downtrend with fluid resuscitation. Will follow-up at 23:30 with lactic acid. Hypoglycemia. Place on D5 0.9 NaCl at 150 L per hour. Monitor glucose every hour and administer amp of D50 or adjust fluids as needed to avoid hypoglycemia Buchanan inserted in the emergency department. Suspect he was having urinary retention and may not have been performing in and out catheter regularly. Monitor intake and output. Obtain CT abdomen and pelvis to evaluate for evidence of obstruction ID: Severe sepsis Urinary tract infection Prostate cancer with history of urinary retention status post TURP, I/O cath at home UTI Buchanan inserted in the emergency department. Prior UTI in April 2017 was Escherichia coli and was resistant to fluoroquinolones Has been started on Zosyn and vancomycin in the emergency department. Will continue. Will follow-up blood and urine cultures and adjust antibiotics as indicated HEME: History of prostate cancer status post TURP 2005 Pathology demonstrated poorly differentiated adenocarcinoma ENDO: Acute hypoglycemia IV fluids with dextrose as per above. Bedside glucose every hour. PROPH: SCDsHeparin 5000 units subcutaneous every 12 hours for DVT prophylaxis. Protonix 40 mg by mouth daily for stress ulcer prophylaxis and history of GERD with prior PPI use ACCESS: Peripheral IV providing adequate access at this time. Will place intravenous line if needed. Patient was not capacitated for medical decision making when I first evaluated him. Patient's nephew, Paul, is not aware of any advanced directives. He states his sister and mom may know more and he will try to contact them. Patient is full code. I contacted patient's niece, Evita Stringer but there was no answer. Patient is critically ill with severe metabolic acidemia, altered mental status , severe recurrent hyperglycemia, severe electrolyte derangements which posed threat to life. He is at risk for further decompensation. Critical care time 55 minutes exclusive of separately billable procedures. Oneida Aragon MD Sep 26, 2017 20:32
--- NOTE | 2017-09-26 20:42 | RADRPT ---
EXAM DATE/TIME: 09/26/2017 20:11 [facility] COMPARISON: CT BRAIN W/O CONTRAST, June 28, 2017, 11:11. INDICATIONS : Altered mental status. RADIATION DOSE: 117.17 CTDIvol (mGy) ; Patient motion MEDICAL HISTORY : Seizures. Hypertension. Cardiovascular diseaseProstate cancer. SURGICAL HISTORY : None. ENCOUNTER: Initial ACUITY: 1 day PAIN SCALE: Non-responsive LOCATION: cranial TECHNIQUE: Multiple contiguous axial images were obtained of the head. Using automated exposure control and adj ustment of the mA and/or kV according to patient size, radiation dose was kept as low as reasonably a chievable to obtain optimal diagnostic quality images. DICOM format image data is available electro nically for review and comparison. FINDINGS: CEREBRUM: Mild diffuse cerebral volume loss. Moderate periventricular white matter hypodensities. The ventricle s are normal for degree of atrophy. No evidence of midline shift, mass lesion, hemorrhage or acute i nfarction. No extra-axial fluid collections are seen. POSTERIOR FOSSA: The cerebellum and brainstem are intact. The 4th ventricle is midline. The cerebellopontine angle i s unremarkable. EXTRACRANIAL: The visualized portion of the orbits is intact. SKULL: The calvaria is intact. No evidence of skull fracture. CONCLUSION: 1. Stable senescent changes without acute intracranial abnormality. Sg López MD on September 26, 2017 at 20:39 Board Certified Radiologist. This report was verified electronically.
[2017-09-26] MEDS ORDERED: Vancomycin Consult Pharmacy 1 EA OTHER SCH (20:45)
[2017-09-26 20:48] VITALS: BP 118/71; PULSE 89; RESP 20; TEMP 98.6; O2SAT 100
[2017-09-26] MEDS ORDERED: DEXTROSE 10% INJ 500 ML IV SCH (21:00)
[2017-09-26] MEDS ORDERED: SODIUM CHLORIDE 0.9% FLUSH 10 ML FLUSH IV FLUSH PRN ×2 (21:30→21:45)
[2017-09-26] MEDS ORDERED: LORazepam 2 MG TAB PO PRN (21:30)
[2017-09-26] MEDS ORDERED: LORazepam 2 MG/ML VIAL IV PUSH PRN ×2 (21:30)
[2017-09-26] MEDS ORDERED: FLUMAZENIL 0.5 MG/5 ML VIAL IV PUSH PRN (21:30)
[2017-09-26] MEDS ORDERED: LORazepam 1 MG TAB PO PRN (21:30)
[2017-09-26] MEDS ORDERED: RESP: ALBUTEROL 2.5 MG/3 ML NEB (PRN) INH (21:45)
[2017-09-26] MEDS ORDERED: ONDANSETRON HCL 4 MG/2 ML VIAL IV PUSH PRN (21:45)
[2017-09-26] MEDS ORDERED: LACTULOSE SYRUP 20 GM/30 ML CUP PO PRN (21:45)
[2017-09-26] MEDS ORDERED: BISACODYL 10 MG SUPP RECTAL PRN (21:45)
[2017-09-26] MEDS ORDERED: MISCELLANEOUS NURSING INFORMATION XX SCH (21:45)
[2017-09-26] MEDS ORDERED: CHLORHEXIDINE GLUCONATE 2 % 1 PACK (2 CLOTHS) TOP PRN (21:45)
[2017-09-26] MEDS ORDERED: SENNOSIDES 8.6 MG TAB PO PRN (21:45)
[2017-09-26] MEDS ORDERED: MAGNESIUM HYDROXIDE SUSP 30 ML CUP PO PRN (21:45)
[2017-09-26] MEDS: THIAMINE INJ 100 MG in SODIUM CHLORIDE 0.9% INJ 100 ML IV SCH (22:00)
--- NOTE | 2017-09-26 23:07 | RADRPT ---
EXAM DATE/TIME: 09/26/2017 22:06 [facility] COMPARISON: No previous studies available for comparison. INDICATIONS : Diffuse lower abdomen pain, obstruction. ORAL CONTRAST: No oral contrast ingested. RADIATION DOSE: 6.23 CTDIvol (mGy) MEDICAL HISTORY : Hypertension. Carcinoma, prostate. GERD. SURGICAL HISTORY : None. ENCOUNTER: Initial ACUITY: 1 day PAIN SCALE: Non-responsive LOCATION: Bilateral lower quadrant TECHNIQUE: Volumetric scanning of the abdomen and pelvis was performed. Using automated exposure control and ad justment of the mA and/or kV according to patient size, radiation dose was kept as low as reasonably achievable to obtain optimal diagnostic quality images. DICOM format image data is available electro nically for review and comparison. FINDINGS: The study is degraded by streak and motion artifact. LOWER LUNGS: There is mild consolidation in the posterior left lower lobe. LIVER: Homogeneous density without lesion. There is no dilation of the biliary tree. There are multiple albaro cifications in the right upper quadrant which appear located in the gallbladder however the gallbladd er is not well delineated. There is streak and motion artifact in this region. SPLEEN: Normal size without lesion. PANCREAS: Within normal limits. KIDNEYS: Normal in size and shape. There is no mass, stone, or hydronephrosis. ADRENAL GLANDS: Within normal limits. VASCULAR: There is no aortic aneurysm. BOWEL/MESENTERY: No oral contrast was given limiting the sensitivity of the exam. The stomach, small bowel, and colon demonstrate no acute abnormality. There is no free intraperitoneal air or fluid. ABDOMINAL WALL: Within normal limits. RETROPERITONEUM: There is no lymphadenopathy. BLADDER: A Buchanan catheter is present. There is air in the bladder with wall thickening and questionable mass a long the right side of the bladder poorly defined. REPRODUCTIVE: Within normal limits. INGUINAL: There is no lymphadenopathy or hernia. MUSCULOSKELETAL: Within normal limits for patient age. CONCLUSION: 1. Suboptimal examination performed without intravenous or oral contrast limiting the sensitivity of the exam. 2. Buchanan catheter in the bladder with wall thickening, air and questionable mass along the right side of the bladder wall. Cystoscopy may be helpful. 3. Right upper quadrant calcifications which appear to represent calcified gallstones. The gallbladde r is poorly delineated in this region. 4. Small area of consolidation in the left lower lobe which could represent pneumonia. 5. Nonobstructive bowel gas pattern. Visualization is suboptimal due to lack of oral contrast, streak and motion artifact. Rayo Escudero MD on September 26, 2017 at 23:01 Board Certified Radiologist. This report was verified electronically.
[2017-09-27] VITALS (25 sets, daily range): BP systolic 119–171; BP diastolic 63–88; PULSE 69–97; RESP 15–22; TEMP 97.4–98.7; O2SAT 83–99
[2017-09-27] MEDS: CHLORHEXIDINE GLUCONATE 2 % 1 PACK (2 CLOTHS) TOP SCH (02:24)
[2017-09-27 04:10] LABS: AUTOMATED NEUTROPHIL # 8.2 TH/MM3 (1.8-7.7); BASOPHIL % 0.2 % (0.0-2.0); HEMATOCRIT 34.8 % (39.0-51.0); HEMOGLOBIN 11.7 GM/DL (13.0-17.0); LYMPH % 14.8 % (9.0-44.0); LYMPHOCYTE # 1.5 TH/MM3 (1.0-4.8); MEAN CELL VOLUME 91.6 FL (80.0-100.0); MEAN CORPUSCULAR HEMOGLOBIN 30.9 PG (27.0-34.0); MEAN CORPUSCULAR HGB CONC 33.7 % (32.0-36.0); MEAN PLATELET VOLUME 7.8 FL (7.0-11.0); MONO % 6.2 % (0.0-8.0); MONOCYTE # 0.6 TH/MM3 (0-0.9); NEUT % 78.8 % (16.0-70.0); PLATELET COUNT 190 TH/MM3 (150-450); RED CELL DISTRIBUTION WIDTH 13.1 % (11.6-17.2); WHITE BLOOD COUNT 10.4 TH/MM3 (4.0-11.0)
[2017-09-27 04:20] LABS: LACTIC ACID SEPSIS PROTOCOL 3.8 mmol/L (0.4-2.0)
[2017-09-27 05:20] LABS: BICARBONATE 23.8 MEQ/L (21.0-32.0); CALCIUM 5.9 MG/DL (8.5-10.1); CREATININE 4.93 MG/DL (0.60-1.30); PHOSPHORUS 3.3 MG/DL (2.5-4.9); TROPONIN I 0.07 NG/ML (0.02-0.05)
[2017-09-27 05:43] LABS: TOTAL PROTEIN 6.9 GM/DL (6.4-8.2)
[2017-09-27] MEDS ORDERED: PIPERACIL-TAZO 2.25 GM PREMIX 50 ML IV ONE (07:00)
[2017-09-27] MEDS ORDERED: CALCIUM GLUCONATE INJ 2 GM in DEXTROSE 5% IN WATER 100ML INJ 100 ML IV ONE ×2 (08:00)
--- NOTE | 2017-09-27 08:18 | EKG ---
Date Performed: 09/26/2017 Time Performed: 17:01:39 PTAGE: 77 years EKG: SINUS TACHYCARDIA WITH OCCASIONAL ECTOPIC PREMATURE COMPLEXES NONSPECIFIC ST & T-WAVE ABNOR MALITY ABNORMAL RHYTHM ECG INTERPRETATION BASED ON A DEFAULT AGE OF 40 YEARS PREVIOUS TRACING : 06/28/2017 10.17 DOCTOR: Marcelino Ibanez Interpretating Date/Time 09/27/2017 08:17:00
[2017-09-27] MEDS: MAGNESIUM SULFATE 1 GM PREMIX 100 ML IV SCH ×2 (08:45→10:00)
[2017-09-27] MEDS: DOCUSATE SODIUM 50 MG/SENNA 8.6 MG TAB PO SCH ×2 (08:45→20:46)
[2017-09-27] MEDS: DEXTROSE 5% IN WATE 1000ML INJ 1,000 ML IV SCH ×3 (08:45→23:45)
[2017-09-27] MEDS: SODIUM CHLORIDE 0.9% FLUSH 10 ML FLUSH IV FLUSH SCH ×2 (08:46→20:47)
[2017-09-27] MEDS: PANTOPRAZOLE SOD 40 MG DELAYED RELEASE TAB PO SCH (08:48)
[2017-09-27] MEDS ORDERED: SODIUM CHLORIDE 0.9% FLUSH 10 ML FLUSH IV FLUSH SCH (09:00)
[2017-09-27 12:44] LABS: ALBUMIN 2.8 GM/DL (3.4-5.0); CREATININE 3.96 MG/DL (0.60-1.30); TOTAL BILIRUBIN ADULT 0.7 MG/DL (0.2-1.0); TOTAL PROTEIN 6.7 GM/DL (6.4-8.2); TROPONIN I 0.05 NG/ML (0.02-0.05)
--- NOTE | 2017-09-27 12:53 | HHI.CCPN ---
Subjective Remarks/Hospital Course 09/26: 77-year-old male with past medical history of hypertension, prostate cancer, urinary retention with self I/O cath, cocaine abuse, GERD, prior TIA, who presents to [facility] emergency department from home via [facility] complaining of 2 weeks of dizziness and weakness. History from patient is limited due to mental status. I attempted to contact family and was only able to get in touch his nephew Paul who states patient has been unable to ambulate, not eating very well for couple of weeks. He was not able to really elaborate any further. When patient presented to [facility] he was afebrile, tachycardic in the 120s. Blood pressure was 153/76. It has trended down to 118/71 in emergency department. He has acute kidney injury with creatinine of 6.9, BUN 64. Potassium is 5.2. Lactic acid 13.7. He is hypomagnesemic with magnesium of 0.5. WBC 9.3 He has been intermittently hypoglycemic with glucose in the 20s in the emergency department and received multiple amps of D50. Repeat glucose was 125 but then down trended again. Buchanan catheter was inserted. There is 1100cc of urine in the Buchanan bag, unclear how much of that was immediately on insertion. No reported seizure. 09/27: Awake and alert. Resting in bed comfortably. Knows he is at the hospital. Has some disorientation currently. Following commands. Not in any acute distress. Making urine Objective Vital Signs Date Time Temp Pulse Resp B/P (MAP) Pulse Ox O2 Delivery O2 Flow Rate FiO2 09/27/17 08:54 93 Nasal Cannula 3.00 09/27/17 08:00 98.0 71 15 119/76 (90) Intake and Output 09/27/17 09/27/17 09/28/17 08:00 16:00 00:00 Intake Total 270 ml Output Total 950 ml Balance -950 ml 270 ml Result Diagram: 09/27/17 0352 09/27/17 0352 Other Results Laboratory Tests Test 09/26/17 22:18 Blood Gas Puncture Site RT RADIAL Blood Gas Patient Temperature 98.6 Blood Gas HCO3 21 mmol/L (22-26) Blood Gas Base Excess -2.5 mmol/L (-2-2) Blood Gas Oxygen Saturation 97 % (90-100) Arterial Blood pH 7.42 (7.380-7.420) Arterial Blood Partial Pressure CO2 34 mmHg (38-42) Arterial Blood Partial Pressure O2 113 mmHG (61-120) Arterial Blood Oxygen Content 13.6 Vol % (12.0-20.0) Arterial Blood Carboxyhemoglobin 0.7 % (0-4) Arterial Blood Methemoglobin 0.6 % (0-2) Blood Gas Hemoglobin 9.8 G/DL (12.0-16.0) Oxygen Delivery Device NASAL CANNULA Blood Gas Liter Flow 3 L/M Objective Remarks GENERAL: Very thin chronically ill appearing male who is sitting up in ICU bed SKIN: Warm and dry. HEAD: Atraumatic. Normocephalic. EYES: Pupils equal and round, 2 mm and sluggishly reactive bilaterally.. No scleral icterus. No injection or drainage. ENT: No nasal bleeding or discharge. Mucous membranes dry. NECK: Trachea midline. No JVD. CARDIOVASCULAR: S1-S2 regular. No murmurs rubs or gallops. RESPIRATORY: Breathing comfortably now accessory muscle use. Clear to auscultation bilaterally. GASTROINTESTINAL: Abdomen soft, non-tender, nondistended. : Buchanan catheter in place with cloudy dark yellow urine output. MUSCULOSKELETAL: Extremities without clubbing, cyanosis, or edema. No obvious deformities. NEUROLOGICAL: Awakens to voice. Makes eye contact. No facial droop. Squeezes hand and move his legs to command. Answers questions yes/no. Oriented to self. No asterixis He had horizontal nystagmus more prominent while he was hypoglycemic A/P Assessment and Plan NEURO: Cocaine abuse Marijuana abuse Hyperammonemia Alcohol abuse Received Ativan 1 mg IV in the emergency department CT brain -no acute abnormality Hyperammonemia noted, will hold off on lactulose for now and initiate if able to swallow and when acid/base/improved States he hasn't had a drink "in a while". Monitor for signs and symptoms of alcohol withdrawal. Ativan as needed Thiamine/multi vitamin/folic acid supplementation. RESP: Nasal cannula wean as tolerated CV: Severe sepsis Normotensive. Monitor blood pressure and heart rate. Serial lactic acid. Received 3 L normal saline bolus in the emergency department. IVF as per below GI: AST elevation Bedside swallow assessment. Speech therapy consult if needed. Check lipase FEN/RENAL: Acute kidney injury Hyponatremia Hyperkalemia Acute hypomagnesemia Acute anion gap metabolic acidemia with lactic acidemia. Has received 3 L normal saline in the emergency department. Hypoglycemia. Place on D5 0.9 NaCl at 150 L per hour. Monitor glucose every hour and administer amp of D50 or adjust fluids as needed to avoid hypoglycemia Buchanan inserted in the emergency department. Suspect he was having urinary retention and may not have been performing in and out catheter regularly. Monitor intake and output. CT abdomen and pelvis did not show any hydronephrosis ID: Severe sepsis Urinary tract infection Prostate cancer with history of urinary retention status post TURP, I/O cath at home UTI Buchanan inserted in the emergency department. Prior UTI in April 2017 was Escherichia coli and was resistant to fluoroquinolones Has been started on Zosyn and vancomycin in the emergency department. Will continue. Will follow-up blood and urine cultures and adjust antibiotics as indicated HEME: History of prostate cancer status post TURP 2005 Pathology demonstrated poorly differentiated adenocarcinoma ENDO: Acute hypoglycemia IV fluids with dextrose as per above. Bedside glucose every hour. PROPH: SCDsHeparin 5000 units subcutaneous every 12 hours for DVT prophylaxis. Protonix 40 mg by mouth daily for stress ulcer prophylaxis and history of GERD with prior PPI use ACCESS: Peripheral IV providing adequate access at this time. Will place intravenous line if needed. Patient was not capacitated for medical decision making when I first evaluated him. Patient's nephew, Paul, is not aware of any advanced directives. He states his sister and mom may know more and he will try to contact them. Patient is full code. I contacted patient's niece, Evita Stringer but there was no answer. Patient is critically ill with severe metabolic acidemia, altered mental status , severe recurrent hyperglycemia, severe electrolyte derangements which posed threat to life. He is at risk for further decompensation. Hill Wheatley MD Sep 27, 2017 12:52
[2017-09-27 13:11] LABS: CALCIUM-PROTEIN CORRECTED 6.2 MG/DL (8.5-10.1)
[2017-09-27] MEDS: PIPERACIL-TAZO 2.25 GM PREMIX 50 ML IV SCH ×2 (14:00→20:46)
[2017-09-27 14:59] LABS: RANDOM VANCOMYCIN 20.7 COMMENT; TROPONIN I 0.05 NG/ML (0.02-0.05)
[2017-09-27] MEDS ORDERED: POTASSIUM CHLORIDE 25 MEQ EFFERVESCENT TAB PO ONE (18:00)
[2017-09-27] MEDS ORDERED: CALCIUM CHLORIDE INJ 1 GM in SODIUM CHLORIDE 0.9% INJ 100 ML IV ONE (18:00)
[2017-09-27] MEDS: THIAMINE INJ 100 MG in SODIUM CHLORIDE 0.9% INJ 100 ML IV SCH (20:45)
[2017-09-27] MEDS: HEPARIN SODIUM - SQ 10,000 UNITS/ML VIAL SQ SCH (20:46)
[2017-09-27] MEDS: MULTIVITAMIN INJ 10 ML, FOLIC ACID INJ 1 MG in SODIUM CHLORID 0.9% 500 ML INJ 500 ML IV SCH (23:17)
[2017-09-28] VITALS (13 sets, daily range): BP systolic 150–202; BP diastolic 77–125; PULSE 70–124; RESP 15–32; TEMP 97.9–99.2; O2SAT 88–100
[2017-09-28] MEDS: PIPERACIL-TAZO 2.25 GM PREMIX 50 ML IV SCH ×4 (01:45→20:47)
[2017-09-28 02:42] LABS: MAGNESIUM 1.1 MG/DL (1.5-2.5); PHOSPHORUS 1.5 MG/DL (2.5-4.9); RANDOM VANCOMYCIN 13.5 COMMENT
[2017-09-28] MEDS: CHLORHEXIDINE GLUCONATE 2 % 1 PACK (2 CLOTHS) TOP SCH (03:43)
[2017-09-28] MEDS: LORazepam 2 MG/ML VIAL IV PUSH PRN ×5 (04:09→20:48)
[2017-09-28] MEDS ORDERED: POTASSIUM PHOSPHATE INJ 15 MMOL in SODIUM CHLORIDE 0.9% INJ 150 ML IV ONE (04:30)
[2017-09-28] MEDS: MAGNESIUM SULFATE 1 GM PREMIX 100 ML IV SCH ×2 (04:48→05:51)
[2017-09-28 04:56] LABS: CALCIUM 7.1 MG/DL (8.5-10.1)
[2017-09-28 05:15] LABS: CALCIUM-PROTEIN CORRECTED 7.7 MG/DL (8.5-10.1); TOTAL PROTEIN 5.9 GM/DL (6.4-8.2)
[2017-09-28] MEDS: THIAMINE INJ 100 MG in SODIUM CHLORIDE 0.9% INJ 100 ML IV SCH ×3 (08:34→20:47)
[2017-09-28] MEDS: SODIUM CHLORIDE 0.9% FLUSH 10 ML FLUSH IV FLUSH SCH ×2 (08:35→20:46)
[2017-09-28] MEDS: DEXTROSE 5% IN WATE 1000ML INJ 1,000 ML IV SCH ×2 (08:35→13:44)
[2017-09-28] MEDS: PANTOPRAZOLE SOD 40 MG DELAYED RELEASE TAB PO SCH (08:35)
[2017-09-28] MEDS: DOCUSATE SODIUM 50 MG/SENNA 8.6 MG TAB PO SCH ×3 (08:35→20:46)
[2017-09-28 10:28] LABS: ALBUMIN 2.6 GM/DL (3.4-5.0); BICARBONATE 19.8 MEQ/L (21.0-32.0); CALCIUM 7.3 MG/DL (8.5-10.1); CALCIUM-PROTEIN CORRECTED 7.9 MG/DL (8.5-10.1); CREATININE 2.73 MG/DL (0.60-1.30); TOTAL BILIRUBIN ADULT 0.5 MG/DL (0.2-1.0)
[2017-09-28] MEDS ORDERED: VANCOMYCIN 1,000 MG/NS 250 ML IV ONE ×2 (11:00)
[2017-09-28] MEDS ORDERED: VANCOMYCIN INJ 1,250 MG in SODIUM CHLOR 0.9% 250 ML INJ 250 ML IV ONE (12:00)
[2017-09-28] MEDS: HEPARIN SODIUM - SQ 10,000 UNITS/ML VIAL SQ SCH ×2 (13:45→20:46)
--- NOTE | 2017-09-28 14:39 | HHI.CCPN ---
Subjective Remarks/Hospital Course 09/26: 77-year-old male with past medical history of hypertension, prostate cancer, urinary retention with self I/O cath, cocaine abuse, GERD, prior TIA, who presents to [facility] emergency department from home via [facility] complaining of 2 weeks of dizziness and weakness. History from patient is limited due to mental status. I attempted to contact family and was only able to get in touch his nephew Paul who states patient has been unable to ambulate, not eating very well for couple of weeks. He was not able to really elaborate any further. When patient presented to [facility] he was afebrile, tachycardic in the 120s. Blood pressure was 153/76. It has trended down to 118/71 in emergency department. He has acute kidney injury with creatinine of 6.9, BUN 64. Potassium is 5.2. Lactic acid 13.7. He is hypomagnesemic with magnesium of 0.5. WBC 9.3 He has been intermittently hypoglycemic with glucose in the 20s in the emergency department and received multiple amps of D50. Repeat glucose was 125 but then down trended again. Buchanan catheter was inserted. There is 1100cc of urine in the Buchanan bag, unclear how much of that was immediately on insertion. No reported seizure. 09/27: Awake and alert. Resting in bed comfortably. Knows he is at the hospital. Has some disorientation currently. Following commands. Not in any acute distress. Making urine 09/28: Drowsy, easily arousable. Resting in bed, no acute distress. Objective Vital Signs Date Time Temp Pulse Resp B/P (MAP) Pulse Ox O2 Delivery O2 Flow Rate FiO2 09/28/17 14:00 96 09/28/17 12:00 98.1 32 202/91 (128) 88 09/28/17 08:58 Nasal Cannula 4.00 Intake and Output 09/28/17 09/28/17 09/28/17 07:59 15:59 23:59 Intake Total 1140.2 ml Output Total 1400 ml Balance -259.8 ml Result Diagram: 09/27/17 0352 09/28/17 0209 Objective Remarks GENERAL: Very thin chronically ill appearing male who is sitting up in ICU bed SKIN: Warm and dry. HEAD: Atraumatic. Normocephalic. EYES: Pupils equal and round, 2 mm and sluggishly reactive bilaterally.. No scleral icterus. No injection or drainage. ENT: No nasal bleeding or discharge. Mucous membranes dry. NECK: Trachea midline. No JVD. CARDIOVASCULAR: S1-S2 regular. No murmurs rubs or gallops. RESPIRATORY: Breathing comfortably now accessory muscle use. Clear to auscultation bilaterally. GASTROINTESTINAL: Abdomen soft, non-tender, nondistended. : Buchanan catheter in place with cloudy dark yellow urine output. MUSCULOSKELETAL: Extremities without clubbing, cyanosis, or edema. No obvious deformities. NEUROLOGICAL: Awakens to voice. Makes eye contact. No facial droop. Squeezes hand and move his legs to command. Answers questions yes/no. Oriented to self. No asterixis A/P Assessment and Plan NEURO: Cocaine abuse Marijuana abuse Hyperammonemia Alcohol abuse Received Ativan 1 mg IV in the emergency department CT brain -no acute abnormality Hyperammonemia noted, will hold off on lactulose for now and initiate if able to swallow and when acid/base/improved States he hasn't had a drink "in a while". Monitor for signs and symptoms of alcohol withdrawal. Ativan as needed Thiamine/multi vitamin/folic acid supplementation. RESP: Nasal cannula wean as tolerated CV: Severe sepsis Normotensive. Monitor blood pressure and heart rate. Serial lactic acid. Received 3 L normal saline bolus in the emergency department. IVF as per below GI: AST elevation Bedside swallow assessment. Speech therapy consult if needed. Check lipase FEN/RENAL: Acute kidney injury Hyponatremia Hyperkalemia Acute hypomagnesemia Acute anion gap metabolic acidemia with lactic acidemia. Has received 3 L normal saline in the emergency department. Hypoglycemia. D5 0.9 NaCl at 150 L per hour. Monitor glucose every hour and administer amp of D50 or adjust fluids as needed to avoid hypoglycemia Bucahnan inserted in the emergency department. Suspect he was having urinary retention and may not have been performing in and out catheter regularly. Monitor intake and output. CT abdomen and pelvis did not show any hydronephrosis. Consult nephrology to follow up on JACOBO/ CKD ID: Severe sepsis Urinary tract infection Prostate cancer with history of urinary retention status post TURP, I/O cath at home UTI Buchanan inserted in the emergency department. Prior UTI in April 2017 was Escherichia coli and was resistant to fluoroquinolones Has been started on Zosyn and vancomycin in the emergency department. Will continue. Will follow-up blood and urine cultures and adjust antibiotics as indicated. Urine cultures growing gram-negative rods. HEME: History of prostate cancer status post TURP 2005 Pathology demonstrated poorly differentiated adenocarcinoma ENDO: Acute hypoglycemia IV fluids with dextrose as per above. PROPH: SCDsHeparin 5000 units subcutaneous every 12 hours for DVT prophylaxis. Protonix 40 mg by mouth daily for stress ulcer prophylaxis and history of GERD with prior PPI use ACCESS: Peripheral IV providing adequate access at this time. Will place intravenous line if needed. Patient's nephew, Paul, is not aware of any advanced directives. He states his sister and mom may know more and he will try to contact them. Patient is full code. Dr. Aragon contacted patient's niece, Evita Stringer but there was no answer. Consult and transfer to hospitalist service for further medical management. Nephrology consult requested. Critical care will be signing off. Please reconsult if needed. Hill Wheatley MD Sep 28, 2017 14:39
--- NOTE | 2017-09-28 15:49 | PD.CONS ---
HPI Service Nephrology Consult Requested By Dr. Wheatley Reason for Consult JACOBO on CKD Primary Care Physician Unknown History of Present Illness Patient is a 77-year-old male with past medical history of hypertension, prostate cancer, urinary retention with self I/O cath, cocaine abuse, GERD, prior TIA. Presented to ER complaining of 2 weeks of dizziness and weakness. History from patient is limited due to mental status. He was found to have acute kidney injury with creatinine of 6.9, BUN 64 on admission. His creatinine has slowly improved with a creatinine of 2.73 today. Creatinine was noted to be 1.0 in 04/23. Has a indwelling silva catheter that is draining clear yellow urine. (Radha Campos) Review of Systems ROS Limitations: Altered Mental Status (Radha Campos) Past Family Social History Allergies: Coded Allergies: No Known Allergies (Verified Allergy, Unknown, 07/10/17) Past Medical History Hypertension Prostate cancer Urinary retention GERD Osteoarthritis TIA Cocaine abuse History obtained from chart Past Surgical History y TURP 09/30/[address] Griffin pathology indicated adenocarcinoma Cystoscopy EGD and ERCP 04/27/17 Dr. Hardy Active Ordered Medications Current Medications Medications (Trade) Dose Ordered Sig/Arabella Route Start Time Stop Time Status Last Admin Pharmacy Profile Note 0 ml @ 0 mls/hr UNSCH OTHER 09/26/17 20:45 Dextrose 1,000 ml @ 150 mls/hr Q6H40M IV 09/26/17 22:00 09/28/17 13:44 Thiamine HCl 100 mg/Sodium Chloride 101 ml @ 101 mls/hr DAILY IV 09/27/17 09:00 09/28/17 08:43 Multivitamins 10 ml/Folic Acid 1 mg/Sodium Chloride 510.2 ml @ 125 mls/hr Q24H IV 09/26/17 23:00 10/01/17 22:59 09/27/17 23:17 Thiamine HCl 100 mg/Sodium Chloride 101 ml @ 100 mls/hr Q24H IV 09/26/17 22:00 09/29/17 21:59 09/27/17 20:45 (Vitamin B1) 100 mg DAILY PO 09/29/17 09:00 (Romazicon Inj) 0.2 mg Q1M PRN IV PUSH 09/26/17 21:30 (Ativan) 1 mg Q4H PRN PO 09/26/17 21:30 (Ativan Inj) 1 mg Q4H PRN IV PUSH 09/26/17 21:30 (Ativan) 2 mg Q2H PRN PO 09/26/17 21:30 (Ativan Inj) 2 mg Q2H PRN IV PUSH 09/26/17 21:30 (Ativan Inj) 2 mg Q1H PRN IV PUSH 09/26/17 21:30 (Ativan Inj) 2 mg Q15M PRN IV PUSH 09/26/17 21:30 09/28/17 04:51 (NS Flush) 2 ml UNSCH PRN IV FLUSH 09/26/17 21:45 (NS Flush) 2 ml BID IV FLUSH 09/27/17 09:00 09/28/17 08:35 (Protonix) 40 mg DAILY PO 09/27/17 09:00 09/28/17 08:35 (Zofran Inj) 4 mg Q6H PRN IV PUSH 09/26/17 21:45 (Albuterol Neb) 2.5 mg Q2HR NEB PRN INH 09/26/17 21:45 (Heparin Inj) 5,000 units Q12H SQ 09/26/17 22:00 09/28/17 13:45 Miscellaneous Information 1 Q361D XX 09/26/17 21:45 (Chlorhexidine 2% Cloth) 3 pack Taper DAILY@04 TOP 09/27/17 04:00 09/23/18 03:59 09/28/17 03:43 (Chlorhexidine 2% Cloth) 3 pack UNSCH PRN TOP 09/26/17 21:45 (Juliet-Colace) 1 tab BID PO 09/27/17 09:00 (Milk Of Magnesia Liq) 30 ml Q12H PRN PO 09/26/17 21:45 (Senokot) 17.2 mg Q12H PRN PO 09/26/17 21:45 (Dulcolax Supp) 10 mg DAILY PRN RECTAL 09/26/17 21:45 (Lactulose Liq) 30 ml DAILY PRN PO 09/26/17 21:45 Piperacillin Sod/ Tazobactam Sod 50 ml @ 100 mls/hr Q6H IV 09/27/17 14:00 09/28/17 13:45 Family History Unable to obtain Social History Reportedly drinks 3-4 beers per day Uses marijuana Not (Radha Campos) Physical Exam Vital Signs Vital Signs Date Time Temp Pulse Resp B/P (MAP) Pulse Ox O2 Delivery O2 Flow Rate FiO2 09/28/17 14:00 96 09/28/17 12:00 103 09/28/17 12:00 98.1 103 32 202/91 (128) 88 09/28/17 10:00 96 09/28/17 08:58 100 Nasal Cannula 4.00 09/28/17 08:00 70 09/28/17 08:00 98.2 70 15 170/77 (108) 100 09/28/17 07:00 100 Nasal Cannula 4.00 09/28/17 06:00 73 09/28/17 04:00 99.2 81 17 150/125 (133) 100 09/28/17 04:00 81 09/28/17 02:00 81 09/28/17 00:00 99.1 84 19 163/87 (112) 100 09/28/17 00:00 84 09/27/17 22:00 89 09/27/17 20:00 98.5 84 19 171/75 (107) 09/27/17 20:00 84 09/27/17 19:00 Nasal Cannula 4.00 09/27/17 18:00 86 09/27/17 17:00 86 09/27/17 16:00 97 09/27/17 16:00 98.7 97 22 136/63 (87) 99 Physical Exam GENERAL: Drowsy SKIN: Warm. Left arm with blisters present HEAD: Normocephalic. EYES: No scleral icterus. No injection or drainage. NECK: Supple, trachea midline. No JVD or lymphadenopathy. CARDIOVASCULAR: Regular rate and rhythm without murmurs, gallops, or rubs. RESPIRATORY: Breath sounds equal bilaterally. No accessory muscle use. Rhonchi noted GASTROINTESTINAL: Abdomen soft, non-tender, nondistended. MUSCULOSKELETAL: No cyanosis. Left arm swollen BACK: Nontender without obvious deformity. No CVA tenderness. Laboratory Laboratory Tests Test 09/28/17 02:09 Blood Urea Nitrogen 37 Creatinine 2.73 Random Glucose 77 Total Protein 6.0 Albumin 2.6 Calcium Level 7.3 Alkaline Phosphatase 52 Aspartate Amino Transf (AST/SGOT) 37 Alanine Aminotransferase (ALT/SGPT) 16 Total Bilirubin 0.5 Sodium Level 139 Potassium Level 3.6 Chloride Level 107 Carbon Dioxide Level 19.8 Anion Gap 12 Estimat Glomerular Filtration Rate 28 Protein Corrected Calcium 7.9 Phosphorus Level 1.5 Magnesium Level 1.1 Random Vancomycin Level 13.5 Date/Time Source Procedure Growth Status 09/26/17 17:35 Blood Peripheral Aerobic Blood Culture - Preliminary NO GROWTH IN 2 DAYS Resulted 09/26/17 17:35 Blood Peripheral Anaerobic Blood Culture - Preliminary NO GROWTH IN 2 DAYS Resulted 09/26/17 19:00 Urine Catheterized Urine Urine Culture - Preliminary Gram Negative Sim Group D Enterococcus Resulted (Radha Campos) Result Diagram: 09/27/17 0352 09/28/17 0209 Imaging Last Impressions Head CT 09/26/178 Signed Impressions: Service Date/Time: Tuesday, September 26, 2017 20:11 - CONCLUSION: 1. Stable senescent changes without acute intracranial abnormality. Sg López MD Chest X-Ray [id number]/26/[id number] Signed Impressions: Service Date/Time: Tuesday, September 26, 2017 16:53 - CONCLUSION: The lungs are clear. Keven Courtney MD Abdomen/Pelvis CT 09/26/17 0000 Signed Impressions: Service Date/Time: Tuesday, September 26, 2017 22:06 - CONCLUSION: 1. Suboptimal examination performed without intravenous or oral contrast limiting the sensitivity of the exam. 2. Silva catheter in the bladder with wall thickening, air and questionable mass along the right side of the bladder wall. Cystoscopy may be helpful. 3. Right upper quadrant calcifications which appear to represent calcified gallstones. The gallbladder is poorly delineated in this region. 4. Small area of consolidation in the left lower lobe which could represent pneumonia. 5. Nonobstructive bowel gas pattern. Visualization is suboptimal due to lack of oral contrast, streak and motion artifact. Rayo Escudero MD (Radha Campos) Assessment and Plan Problem List: (1) JACOBO (acute kidney injury) ICD Codes: N17.9 - Acute kidney failure, unspecified Plan: Acute kidney injury with creatinine of 6.9, BUN 64 on admission most likely related to obstruction and UTI His creatinine has slowly improved with a creatinine of 2.73 today. Baseline creatinine was noted to be 1.0 in 04/23 Maintain indwelling silva catheter secondary to retention and to maintain I+O Good UOP at [address] of pelvis with kidneys of normal in size and shape. There is no mass, stone , or hydronephrosis. Patient is drowsy Potassium WNL Mag and phos low on replacement Avoid nephrotoxins. (2) Increased ammonia level ICD Codes: R79.89 - Other specified abnormal findings of blood chemistry Status: Acute (3) Encephalopathy, toxic ICD Codes: G92 - Toxic encephalopathy; R65.20 - Severe sepsis without septic shock Status: Acute (4) Hypertensive emergency ICD Codes: I16.1 - Hypertensive emergency Status: Acute (5) UTI (urinary tract infection) ICD Codes: N39.0 - Urinary tract infection, site not specified Status: Acute (6) Acute urinary retention ICD Codes: R33.8 - Other retention of urine Status: Acute (7) Hypomagnesemia ICD Codes: E83.42 - Hypomagnesemia Status: Acute (8) Hypertension ICD Codes: I10 - Essential (primary) hypertension Status: Acute (Radha Campos) Problem List: (1) JACOBO (acute kidney injury) ICD Codes: N17.9 - Acute kidney failure, unspecified Plan: Acute kidney injury with creatinine of 6.9, BUN 64 on admission most likely related to obstruction and UTI His creatinine has slowly improved with a creatinine of 2.73 today. Baseline creatinine was noted to be 1.0 in 04/23 Maintain indwelling silva catheter secondary to retention and to maintain I+O Good UOP at [address] over [address] of pelvis with kidneys of normal in size and shape. There is no mass, stone , or hydronephrosis. Possible mass in the Bladder. Patient is drowsy Potassium WNL Mag and phos low on replacement Avoid nephrotoxins. Patient seen and examined, agree with above. Possible pre renal/Obstructive. Consider urology, will need Cystoscopy. Continue IVF. (2) Increased ammonia level ICD Codes: R79.89 - Other specified abnormal findings of blood chemistry Status: Acute (3) Encephalopathy, toxic ICD Codes: G92 - Toxic encephalopathy; R65.20 - Severe sepsis without septic shock Status: Acute (4) Hypertensive emergency ICD Codes: I16.1 - Hypertensive emergency Status: Acute (5) UTI (urinary tract infection) ICD Codes: N39.0 - Urinary tract infection, site not specified Status: Acute (6) Acute urinary retention ICD Codes: R33.8 - Other retention of urine Status: Acute (7) Hypomagnesemia ICD Codes: E83.42 - Hypomagnesemia Status: Acute (8) Hypertension ICD Codes: I10 - Essential (primary) hypertension Status: Acute (Brisa Elise MD) Problem Qualifiers (1) UTI (urinary tract infection): Qualified Codes: N30.00 - Acute cystitis without hematuria Radha Campos Sep 28, 2017 15:49 Brisa Elise MD Sep 28, 2017 21:29
[2017-09-28] MEDS: MULTIVITAMIN INJ 10 ML, FOLIC ACID INJ 1 MG in SODIUM CHLORID 0.9% 500 ML INJ 500 ML IV SCH (23:10)
[2017-09-29] VITALS (14 sets, daily range): BP systolic 138–195; BP diastolic 63–87; PULSE 78–115; RESP 14–18; TEMP 97.6–98.8; O2SAT 96–100
[2017-09-29] MEDS: PIPERACIL-TAZO 2.25 GM PREMIX 50 ML IV SCH ×4 (02:40→20:37)
[2017-09-29] MEDS: CHLORHEXIDINE GLUCONATE 2 % 1 PACK (2 CLOTHS) TOP SCH (04:00)
[2017-09-29] MEDS: LORazepam 2 MG/ML VIAL IV PUSH PRN (05:26)
--- NOTE | 2017-09-29 06:34 | RADRPT ---
EXAM DATE/TIME: 09/29/2017 05:26 [facility] COMPARISON: CHEST SINGLE AP, September 26, 2017, 16:53. INDICATIONS : Evaluate for pneumonia- Respiratory failure MEDICAL HISTORY : Cardiovascular disease. Hypertension Carcinoma, prostatic. Seizures SURGICAL HISTORY : None. ENCOUNTER: Subsequent ACUITY: 3 days PAIN SCORE: Non-responsive. LOCATION: Bilateral chest FINDINGS: A single view of the chest demonstrates the lungs to be symmetrically aerated without evidence of mas s, infiltrate or effusion. The cardiomediastinal contours are unremarkable. Osseous structures are intact. CONCLUSION: No acute cardiopulmonary disease demonstrated. Rodriguez Donald MD on September 29, 2017 at 6:32 Board Certified Radiologist. This report was verified electronically.
[2017-09-29 07:33] LABS: AUTOMATED NEUTROPHIL # 5.4 TH/MM3 (1.8-7.7); BASOPHIL % 0.5 % (0.0-2.0); EOSINOPHIL % 0.6 % (0.0-4.0); HEMATOCRIT 37.4 % (39.0-51.0); HEMOGLOBIN 12.9 GM/DL (13.0-17.0); LYMPH % 13.7 % (9.0-44.0); LYMPHOCYTE # 0.9 TH/MM3 (1.0-4.8); MEAN CELL VOLUME 90.3 FL (80.0-100.0); MEAN CORPUSCULAR HEMOGLOBIN 31.1 PG (27.0-34.0); MEAN CORPUSCULAR HGB CONC 34.5 % (32.0-36.0); MEAN PLATELET VOLUME 7.9 FL (7.0-11.0); MONO % 4.8 % (0.0-8.0); MONOCYTE # 0.3 TH/MM3 (0-0.9); NEUT % 80.4 % (16.0-70.0); PLATELET COUNT 195 TH/MM3 (150-450); RED BLOOD COUNT 4.15 MIL/MM3 (4.50-5.90); RED CELL DISTRIBUTION WIDTH 12.8 % (11.6-17.2); WHITE BLOOD COUNT 6.7 TH/MM3 (4.0-11.0)
[2017-09-29 07:37] LABS: ALBUMIN 2.4 GM/DL (3.4-5.0); BICARBONATE 26.4 MEQ/L (21.0-32.0); CALCIUM 7.3 MG/DL (8.5-10.1); CALCIUM-PROTEIN CORRECTED 7.9 MG/DL (8.5-10.1); CREATININE 1.68 MG/DL (0.60-1.30); MAGNESIUM 1.3 MG/DL (1.5-2.5); RANDOM VANCOMYCIN 7.4 COMMENT
--- NOTE | 2017-09-29 08:10 | HHI.PR ---
Subjective Remarks in no acute distress. but just briefly opens the eyes to calling his name. no fever. good urine output. received Ativan earlier . d/w the RN. Objective Vitals Vital Signs Date Time Temp Pulse Resp B/P (MAP) Pulse Ox O2 Delivery O2 Flow Rate FiO2 09/29/17 06:00 84 09/29/17 04:00 98.1 87 16 190/85 (120) 09/29/17 04:00 87 09/29/17 02:00 84 09/29/17 00:00 82 09/29/17 00:00 98.2 82 14 195/87 (123) 09/28/17 22:00 82 09/28/17 20:00 97.9 90 17 182/98 (126) 100 09/28/17 20:00 90 09/28/17 19:00 100 Nasal Cannula 4.00 09/28/17 18:00 124 09/28/17 16:00 105 09/28/17 16:00 98.0 105 16 199/84 (122) 100 09/28/17 14:00 96 09/28/17 12:00 103 09/28/17 12:00 98.1 103 32 202/91 (128) 88 09/28/17 10:00 96 09/28/17 08:58 100 Nasal Cannula 4.00 I/O 09/28/17 09/28/17 09/28/17 09/29/17 09/29/17 09/29/17 07:00 15:00 23:00 07:00 15:00 23:00 Intake Total 1140.2 ml 1400 ml 390 ml 590 ml Output Total 1400 ml 4950 ml 2300 ml Balance -259.8 ml 1400 ml -4560 ml -1710 ml Intake Oral 480 ml 240 ml 40 ml IV Total 660.2 ml 1400 ml 150 ml 550 ml Output Urine Total 1400 ml 4950 ml 2300 ml # Bowel Movements 3 4 0 Result Diagram: 09/29/1745 09/29/1745 Imaging Last Impressions Chest X-Ray 09/29/17 06 Signed Impressions: Service Date/Time: Friday, September 29, 2017 05:26 - CONCLUSION: No acute cardiopulmonary disease demonstrated. Rodriguez Donald MD Head CT 09/26/17 1648 Signed Impressions: Service Date/Time: Tuesday, September 26, 2017 20:11 - CONCLUSION: 1. Stable senescent changes without acute intracranial abnormality. Sg López MD Abdomen/Pelvis CT 09/26/17 0000 Signed Impressions: Service Date/Time: Tuesday, September 26, 2017 22:06 - CONCLUSION: 1. Suboptimal examination performed without intravenous or oral contrast limiting the sensitivity of the exam. 2. Buchanan catheter in the bladder with wall thickening, air and questionable mass along the right side of the bladder wall. Cystoscopy may be helpful. 3. Right upper quadrant calcifications which appear to represent calcified gallstones. The gallbladder is poorly delineated in this region. 4. Small area of consolidation in the left lower lobe which could represent pneumonia. 5. Nonobstructive bowel gas pattern. Visualization is suboptimal due to lack of oral contrast, streak and motion artifact. Rayo Escudero MD Objective Remarks GENERAL: in no apparent distress. CARDIOVASCULAR: Regular rate and regular rhythm without murmurs, gallops, or rubs. RESPIRATORY: Clear to auscultation. Breath sounds equal bilaterally. No wheezes , rales, or rhonchi. GASTROINTESTINAL: Abdomen soft, non-tender, nondistended. Normal, active bowel sounds MUSCULOSKELETAL: Extremities without clubbing, cyanosis, or edema. NEURO: briefly opened the eyes to calling his name. Medications and IVs Inpatient Medications Albuterol Sulfate (Albuterol Neb) 2.5 mg Q2HR NEB PRN INH SOB/WHEEZING; Start 09/26/17 at 21:45 Bisacodyl (Dulcolax Supp) 10 mg DAILY PRN RECTAL SEVERE CONSITIPATION; Start at 21:45 Calcium Chloride 1 gm/Sodium Chloride 110 ml @ 110 mls/hr ONCE ONCE IV Last administered on 09/27/17at 19:25; Start 09/27/17 at 18:00; Stop 09/27/17 at 18:59 ; Status DC Calcium Gluconate 2 gm/Dextrose 120 ml @ 120 mls/hr ONCE ONCE IV Last administered on 09/27/17at 08:46; Start 09/27/17 at 08:00; Stop 09/27/17 at 08:59 ; Status DC Chlorhexidine Gluconate (Chlorhexidine 2% Cloth) 3 pack UNSCH PRN TOP HYGIENIC CARE; Start 09/26/17 at 21:45 Dextrose 1,000 ml @ 150 mls/hr Q6H40M IV Last administered on 09/28/17at 13:44 ; Start 09/26/17 at 22:00 Dextrose (D50w (Syr) Inj) 50 ml ONCE ONCE IV PUSH Last administered on at 17:29; Start 09/26/17 at 17:30; Stop 09/26/17 at 17:31; Status DC Dextrose (D50w (Vial) Inj) 50 ml ONCE ONCE IV PUSH Last administered on at 21:00; Start 09/26/17 at 21:00; Stop 09/26/17 at 21:01; Status DC Flumazenil (Romazicon Inj) 0.2 mg Q1M PRN IV PUSH SEE LABEL COMMENTS; Start at 21:30 Glucagon (Glucagon Inj) 1 mg ONCE ONCE IV PUSH ; Start 09/26/17 at 18:00; Stop 09/26/17 at 18:23; Status DC Heparin Sodium (Porcine) (Heparin Inj) 5,000 units Q12H SQ Last administered on 09/28/17at 20:46; Start 09/26/17 at 22:00 Lactulose (Lactulose Liq) 30 ml DAILY PRN PO SEVERE CONSITIPATION; Start at 21:45 Lorazepam (Ativan Inj) 2 mg Q15M PRN IV PUSH CIWA > 20 Last administered on at 04:51; Start 09/26/17 at 21:30 Lorazepam (Ativan) 2 mg Q2H PRN PO CIWA 11-14; Start 09/26/17 at 21:30 Magnesium Hydroxide (Milk Of Magnesia Liq) 30 ml Q12H PRN PO Mild constipation ; Start 09/26/17 at 21:45 Magnesium Sulfate/ Dextrose 100 ml @ 100 mls/hr Q1H IV Last administered on at 05:51; Start 09/28/17 at 04:30; Stop 09/28/17 at 06:29; Status DC Miscellaneous Information 1 [id number] XX ; Start 09/26/17 at 21:45 Multivitamins 10 ml/Folic Acid 1 mg/Sodium Chloride 510.2 ml @ 125 mls/hr Q24H IV Last administered on 09/28/17at 23:10; Start 09/26/17 at 23:00; Stop at 22:59 Ondansetron HCl (Zofran Inj) 4 mg Q6H PRN IV PUSH NAUSEA OR VOMITING; Start at 21:45 Pantoprazole Sodium (Protonix) 40 mg DAILY PO Last administered on 09/28/17at 08 :35; Start 09/27/17 at 09:00 Pharmacy Profile Note 0 ml @ 0 mls/hr UNSCH OTHER ; Start 09/26/17 at 20:45 Piperacillin Sod/ Tazobactam Sod 50 ml @ 100 mls/hr STAT ONCE IV Last administered on 09/27/17at 08:46; Start 09/27/17 at 07:00; Stop 09/27/17 at 07:29 ; Status DC Potassium Phosphate 15 mmol/ Sodium Chloride 155 ml @ 38.75 mls/ hr ONCE ONCE IV Last administered on 09/28/17at 08:34; Start 09/28/17 at 04:30; Stop at 08:29; Status DC Potassium Bicarb/ Potassium Chloride (K-Lyte Cl Eff) 100 meq ONCE ONCE PO Last administered on 09/27/17at 20:46; Start 09/27/17 at 18:00; Stop 09/27/17 at 18:01; Status DC Senna/Docusate Sodium (Juliet-Colace) 1 tab BID PO ; Start 09/27/17 at 09:00 Sennosides (Senokot) 17.2 mg Q12H PRN PO Moderate constipation; Start 09/26/17 at 21:45 Sodium Chloride (NS Flush) 2 ml BID IV FLUSH Last administered on 09/28/17at 20: 46; Start 09/27/17 at 09:00 Sodium Chloride 77 meq/Dextrose 1,019.25 ml @ 50 mls/hr [id number] IV ; Start at 18:00; Stop 09/26/17 at 18:02; Status DC Thiamine HCl (Vitamin B1) 100 mg DAILY PO ; Start 09/29/17 at 09:00 Thiamine HCl 100 mg/Sodium Chloride 101 ml @ 100 mls/hr Q24H IV Last administered on 09/28/17at 20:47; Start 09/26/17 at 22:00; Stop 09/29/17 at 21:59 Vancomycin HCl 1250 mg/Sodium Chloride 262.5 ml @ 250 mls/hr ONCE ONCE IV Last administered on 09/28/17at 13:44; Start 09/28/17 at 12:00; Stop 09/28/17 at 13:02; Status DC Vancomycin HCl 1750 mg/Sodium Chloride 517.5 ml @ 258.75 mls/ hr ONCE ONCE IV Last administered on 09/26/17at 18:30; Start 09/26/17 at 18:30; Stop 09/26/17 at 20:29; Status DC A/P Assessment and Plan Cocaine abuse Marijuana abuse Hyperammonemia Alcohol abuse CT brain -no acute abnormality Hyperammonemia noted, will hold off on lactulose for now and initiate if able to swallow and when acid/base/improved States he hasn't had a drink "in a while". Monitor for signs and symptoms of alcohol withdrawal. Ativan as needed Thiamine/multi vitamin/folic acid supplementation. AST elevation- improved. consult ST. Acute kidney injury Hyponatremia Hypokalemia Acute hypomagnesemia Acute anion gap metabolic acidemia with lactic acidemia. Hypoglycemia. questionable bladder mass D5 0.9 NaCl at 100 L per hour. Monitor glucose every hour and administer amp of D50 or adjust fluids as needed to avoid hypoglycemia Buchanan inserted in the emergency department. Suspect he was having urinary retention and may not have been performing in and out catheter regularly. Monitor intake and output. CT abdomen and pelvis did not show any hydronephrosis. electrolyte supplementation as needed. nephrology consult appreciated. urology consult. Severe sepsis Urinary tract infection Prostate cancer with history of urinary retention status post TURP, I/O cath at home UTI Buchanan inserted in the emergency department. Prior UTI in April 2017 was Escherichia coli and was resistant to fluoroquinolones Has been started on Zosyn and vancomycin in the emergency department. Will continue. Will follow-up blood and urine cultures and adjust antibiotics as indicated. Urine cultures growing gram-negative rods. History of prostate cancer status post TURP 2005 Pathology demonstrated poorly differentiated adenocarcinoma continue PT. PROPH: SCDsHeparin 5000 units subcutaneous every 12 hours for DVT prophylaxis. Protonix 40 mg by mouth daily for stress ulcer prophylaxis and history of GERD with prior PPI use Liz Rm MD Sep 29, 2017 08:10
[2017-09-29] MEDS ORDERED: POTASSIUM CHLORIDE 10 MEQ CONTROLLED RELEASE TAB PO ONE (08:15)
[2017-09-29] MEDS ORDERED: THIAMINE HCL 100 MG TAB PO SCH (09:00)
[2017-09-29] MEDS: DEXTROSE 5% IN WATE 1000ML INJ 1,000 ML IV SCH ×2 (10:13→20:58)
[2017-09-29] MEDS: THIAMINE INJ 100 MG in SODIUM CHLORIDE 0.9% INJ 100 ML IV SCH (10:13)
[2017-09-29] MEDS: DOCUSATE SODIUM 50 MG/SENNA 8.6 MG TAB PO SCH ×2 (10:14→20:22)
[2017-09-29] MEDS: MAGNESIUM OXIDE 400 MG TAB PO SCH (10:14)
[2017-09-29] MEDS: HEPARIN SODIUM - SQ 10,000 UNITS/ML VIAL SQ SCH ×2 (10:15→20:37)
[2017-09-29] MEDS: SODIUM CHLORIDE 0.9% FLUSH 10 ML FLUSH IV FLUSH SCH ×2 (10:15→20:22)
[2017-09-29] MEDS: PANTOPRAZOLE SOD 40 MG DELAYED RELEASE TAB PO SCH (10:16)
--- NOTE | 2017-09-29 10:36 | HHI.NPPN ---
Subjective Complaints: Confused General Problems: Anemia Renal Failure: Chronic, Acute, Stage III History of Present Illness Patient is a 77-year-old male with past medical history of hypertension, prostate cancer, urinary retention with self I/O cath, cocaine abuse, GERD, prior TIA. Presented to ER complaining of 2 weeks of dizziness and weakness. History from patient is limited due to mental status. He was found to have acute kidney injury with creatinine of 6.9, BUN 64 on admission. His creatinine has slowly improved with a creatinine of 2.73 today. Creatinine was noted to be 1.0 in 04/23. Has a indwelling silva catheter that is draining clear yellow urine Additional Remarks Patient remains confused but more alert today. Restrained. No SOB. No Edema (Radha Campos) Objective Data Data Vital Signs Date Time Temp Pulse Resp B/P (MAP) Pulse Ox O2 Delivery O2 Flow Rate FiO2 09/29/17 08:45 96 Nasal Cannula 2.00 09/29/17 06:00 84 09/29/17 04:00 98.1 87 16 190/85 (120) 09/29/17 04:00 87 09/29/17 02:00 84 09/29/17 00:00 82 09/29/17 00:00 98.2 82 14 195/87 (123) 09/28/17 22:00 82 09/28/17 20:00 97.9 90 17 182/98 (126) 100 09/28/17 20:00 90 09/28/17 19:00 100 Nasal Cannula 4.00 09/28/17 18:00 124 09/28/17 16:00 105 09/28/17 16:00 98.0 105 16 199/84 (122) 100 09/28/17 14:00 96 09/28/17 12:00 103 09/28/17 12:00 98.1 103 32 202/91 (128) 88 (Radha Campos) -: 09/29/17 0645 09/29/17 0645 Physical Exam General Appearance: No Acute Distress, Comfortable (Radha Campos) Throat Throat Exam: Oral Mucosa [place] & Moist (Radha Campos) Pulmonary Resp Exam: Clear Bilaterally, Breath Sounds Equal (Radha Campos) Cardiology CV Exam: Regular (Radha Campos) Gastrointestinal/Abdomen GI Exam: Soft, Non-Tender (Radha Campos) Genitourinary Exam: Flank Non-Tender Remarks indwelling silva (Radha Campos) Integumentary Skin Exam: Clear, Warm Skin Remarks left arm skin sloughing (Radha Campos) Extremeties Extremities Exam: No Edema (Radha Campos) Neurologic Neuro Exam: Alert Neuro Remarks confused (Radha Campos) Assessment/Plan Problem List: (1) JACOBO (acute kidney injury) ICD Codes: N17.9 - Acute kidney failure, unspecified Plan: Acute kidney injury with creatinine of 6.9, BUN 64 on admission most likely related to pre renal/ obstruction His creatinine has slowly improved with a creatinine of 1.68 from 2.73 today. Baseline creatinine was noted to be 1.0 in 04/23 Continues to have good UOP over past [address] of pelvis with kidneys of normal in size and shape. There is no mass, stone , or hydronephrosis. Possible mass in the Bladder. Mag, potassium, and phos low on replacement Plan Maintain indwelling silva catheter secondary to retention and to maintain I+O Continue IVF Avoid nephrotoxins. Consider urology, will need Cystoscopy. Will monitor bmp and UOP (2) Increased ammonia level ICD Codes: R79.89 - Other specified abnormal findings of blood chemistry Status: Acute (3) Encephalopathy, toxic ICD Codes: G92 - Toxic encephalopathy; R65.20 - Severe sepsis without septic shock Status: Acute (4) Hypertensive emergency ICD Codes: I16.1 - Hypertensive emergency Status: Acute (5) UTI (urinary tract infection) ICD Codes: N39.0 - Urinary tract infection, site not specified Status: Acute (6) Acute urinary retention ICD Codes: R33.8 - Other retention of urine Status: Acute (7) Hypomagnesemia ICD Codes: E83.42 - Hypomagnesemia Status: Acute (8) Hypertension ICD Codes: I10 - Essential (primary) hypertension Status: Acute (Radha Campos) Problem List: (1) JACOBO (acute kidney injury) ICD Codes: N17.9 - Acute kidney failure, unspecified Plan: Acute kidney injury with creatinine of 6.9, BUN 64 on admission most likely related to pre renal/ obstruction His creatinine has slowly improved with a creatinine of 1.68 from 2.73 today. Baseline creatinine was noted to be 1.0 in 04/23 Continues to have good UOP over past [address] of pelvis with kidneys of normal in size and shape. There is no mass, stone , or hydronephrosis. Possible mass in the Bladder. Mag, potassium, and phos low on replacement Plan Maintain indwelling silva catheter secondary to retention and to maintain I+O Continue IVF Avoid nephrotoxins. Consider urology, will need Cystoscopy. Will monitor bmp and UOP. Patient seen and examined, agree with above. Creatinine is improving, K is low and replaced. (2) Increased ammonia level ICD Codes: R79.89 - Other specified abnormal findings of blood chemistry Status: Acute (3) Encephalopathy, toxic ICD Codes: G92 - Toxic encephalopathy; R65.20 - Severe sepsis without septic shock Status: Acute (4) Hypertensive emergency ICD Codes: I16.1 - Hypertensive emergency Status: Acute (5) UTI (urinary tract infection) ICD Codes: N39.0 - Urinary tract infection, site not specified Status: Acute (6) Acute urinary retention ICD Codes: R33.8 - Other retention of urine Status: Acute (7) Hypomagnesemia ICD Codes: E83.42 - Hypomagnesemia Status: Acute (8) Hypertension ICD Codes: I10 - Essential (primary) hypertension Status: Acute (Brisa Elise MD) Problem Qualifiers (1) UTI (urinary tract infection): Qualified Codes: N30.00 - Acute cystitis without hematuria Radha Campos Sep 29, 2017 10:36 Brisa Elise MD Sep 29, 2017 23:00
--- NOTE | 2017-09-29 12:31 | PD.WCN.NOT ---
Wound Consult Description: Received consult from Doctor Rm regarding wound management of L Forearm and upper arm blisters infiltrated. Communicated with: RASHAD Carreno C, Keila charge machine operator [facility], Call placed to Doctor Rm Recommendation: 1.Please leave transparent dressing in place until saturated or dislodged. 2.Then cleanse open unroofed bullae with normal saline approximating skin flap back over wound bed 3. Cover with Versatel, secure dressing with rolled gauze and tape 3. OR IF unroofed bullae are draining heavily, cover with Optilock dressing secured with rolled gauze and tape. 4.Change dressing every 3 days or PRN if saturated or dislodged Additional Information: Patient seen on [facility] for evaluation of wound management of L forearm and upper arm blisters infiltrated. Patient is laying in bed and awake, with garbled speech. Observed Patient's L forearm and upper arm. Noted diffuse roofed and unroofed bullae to L forearm, antecubital space, and upper medial arm. Transparent dressing is noted over unroofed bullae extending and covering small portion of roofed bullae distally. Dressing is dry and intact. Left dressing in place. Dressing not removed, was placed last night and bond underwriter is concerned with opening roofed bulla.Spoke with RASHAD Carreno [facility] and Keila SOLORZANO [facility] charge nurse. Recommendations were verbalized at this time and also noted above. Fay Nielson [facility] Sep 29, 2017 12:31
[2017-09-29] MEDS ORDERED: VANCOMYCIN 1,000 MG/NS 250 ML IV ONE ×2 (13:00)
--- NOTE | 2017-09-29 16:34 | PD.CONS ---
HPI Service Urology Consult Requested By Dr Rm Reason for Consult Urinary retention and bladder mass Primary Care Physician Unknown Diagnosis: (1) BPH (benign prostatic hyperplasia) ICD Code: N40.0 - Benign prostatic hyperplasia without lower urinary tract symptoms (2) Acute urinary retention ICD Code: R33.8 - Other retention of urine History of Present Illness 77-year-old male with past medical history of hypertension, BPH / urinary retention with CIC x 4-5 a day, cocaine abuse, GERD, prior TIA, who presents to [facility] emergency department from home via [facility] complaining of 2 weeks of dizziness and weakness. He found to have acute kidney injury with creatinine of 6.9, BUN 64. Potassium is 5.2. Lactic acid 13.7. He has been intermittently hypoglycemic with glucose in the 20s in the emergency department and received multiple amps of D50. History from patient is limited due to mental status so other Dr's notes were used He also was in retention and silva placed with 1100cc return of clear yellow urine. Urine remains clear yellow. He was seen by [facility] urology in the past for BPH, retention and hematuria. Cytology in April 2017 was normal. He was scheduled for TURP twice last year but never showed up for it. His Cr is improving now. UC is growing E. coli. Also his Ct scan showed possible bladder mass vs enlarged prostate. He had TURP in 2005 and found to have Canadensis 8 Prostate cancer, non compliant with follow ups and treatment but mets w/u was negative Review of Systems Except as stated in HPI: all other systems reviewed are Neg Past Family Social History Past Medical History Hypertension BPH Prostate cancer Urinary retention GERD Osteoarthritis TIA Cocaine abuse Past Surgical History TURP 09/30/[address] Griffin pathology indicated adenocarcinoma, Brissa 8 Cystoscopy EGD and ERCP 04/27/17 Dr. England Allergies: Coded Allergies: No Known Allergies (Verified Allergy, Unknown, 07/10/17) Family History cant obtain Social History Reportedly drinks 3-4 beers per day Uses marijuana Not . Physical Exam Vital Signs Date Time Temp Pulse Resp B/P (MAP) Pulse Ox O2 Delivery O2 Flow Rate FiO2 09/29/17 12:00 97.9 113 18 174/81 (112) 100 09/29/17 12:00 113 09/29/17 10:00 80 09/29/17 08:45 96 Nasal Cannula 2.00 09/29/17 08:00 78 09/29/17 08:00 97.6 78 14 138/63 (88) 99 09/29/17 07:00 100 Nasal Cannula 4.00 09/29/17 06:00 84 09/29/17 04:00 98.1 87 16 190/85 (120) 09/29/17 04:00 87 09/29/17 02:00 84 09/29/17 00:00 82 09/29/17 00:00 98.2 82 14 195/87 (123) 09/28/17 22:00 82 09/28/17 20:00 97.9 90 17 182/98 (126) 100 09/28/17 20:00 90 09/28/17 19:00 100 Nasal Cannula 4.00 09/28/17 18:00 124 Physical Exam GENERAL: This is a well-nourished, well-developed patient, in no apparent distress. HEAD: Atraumatic. Normocephalic. EYES: Pupils equal round and reactive. NECK: Supple, nontender, no meningeal signs. CARDIOVASCULAR: Regular rate and rhythm without murmurs, gallops, or rubs. RESPIRATORY: Clear to auscultation. Breath sounds equal bilaterally. No wheezes , rales, or rhonchi. GASTROINTESTINAL: Abdomen soft, non-tender, nondistended. N GENITOURINARY:Normal henital exam. silva is in place draining well MUSCULOSKELETAL: not assessed NEUROLOGICAL: confused. Lab results reviewed: Yes Laboratory Tests Test 09/29/17 06:45 White Blood Count 6.7 Red Blood Count 4.15 Hemoglobin 12.9 Hematocrit 37.4 Mean Corpuscular Volume 90.3 Mean Corpuscular Hemoglobin 31.1 Mean Corpuscular Hemoglobin Concent 34.5 Red Cell Distribution Width 12.8 Platelet Count 195 Mean Platelet Volume 7.9 Neutrophils (%) (Auto) 80.4 Lymphocytes (%) (Auto) 13.7 Monocytes (%) (Auto) 4.8 Eosinophils (%) (Auto) 0.6 Basophils (%) (Auto) 0.5 Neutrophils # (Auto) 5.4 Lymphocytes # (Auto) 0.9 Monocytes # (Auto) 0.3 Eosinophils # (Auto) 0.0 Basophils # (Auto) 0.0 CBC Comment DIFF FINAL Differential Comment Blood Urea Nitrogen 16 Creatinine 1.68 Random Glucose 91 Total Protein 6.0 Albumin 2.4 Calcium Level 7.3 Magnesium Level 1.3 Alkaline Phosphatase 47 Aspartate Amino Transf (AST/SGOT) 23 Alanine Aminotransferase (ALT/SGPT) 15 Total Bilirubin 1.0 Sodium Level 142 Potassium Level 3.1 Chloride Level 108 Carbon Dioxide Level 26.4 Anion Gap 8 Estimat Glomerular Filtration Rate 49 Lactic Acid Level 1.5 Protein Corrected Calcium 7.9 Phosphorus Level 2.1 Random Vancomycin Level 7.4 Date/Time Source Procedure Growth Status 09/26/17 17:35 Blood Peripheral Aerobic Blood Culture - Preliminary NO GROWTH IN 3 DAYS Resulted 09/26/17 17:35 Blood Peripheral Anaerobic Blood Culture - Preliminary NO GROWTH IN 3 DAYS Resulted 09/26/17 19:00 Urine Catheterized Urine Urine Culture - Final Escherichia Coli Enterococcus Faecalis Complete Result Diagram: 09/29/17 0645 09/29/17 0645 Personally reviewed images: Yes Imaging Last Impressions Chest X-Ray 09/29/17 0600 Signed Impressions: Service Date/Time: Friday, September 29, 2017 05:26 - CONCLUSION: No acute cardiopulmonary disease demonstrated. Rodriguez Donald MD Head CT 09/26/17 1648 Signed Impressions: Service Date/Time: Tuesday, September 26, 2017 20:11 - CONCLUSION: 1. Stable senescent changes without acute intracranial abnormality. Sg López MD Abdomen/Pelvis CT 09/26/17 0000 Signed Impressions: Service Date/Time: Tuesday, September 26, 2017 22:06 - CONCLUSION: 1. Suboptimal examination performed without intravenous or oral contrast limiting the sensitivity of the exam. 2. Silva catheter in the bladder with wall thickening, air and questionable mass along the right side of the bladder wall. Cystoscopy may be helpful. 3. Right upper quadrant calcifications which appear to represent calcified gallstones. The gallbladder is poorly delineated in this region. 4. Small area of consolidation in the left lower lobe which could represent pneumonia. 5. Nonobstructive bowel gas pattern. Visualization is suboptimal due to lack of oral contrast, streak and motion artifact. Rayo Escudero MD Assessment and Plan Assessment and Plan 77 y.o. M with Urinary retention, UTI and BPH. Also Canadensis 8 prostate cancer Has possibly a bladder mass. Usually does CIC at home Plan: Continue care as per primary team. Treat UTI according to C&S Keep silva catheter in and d/c with silva catheter when ready for discharge Needs Flomax daily Bladder mass will be evaluate as an outpatient in our office with cystoscopy Also his Prostate cancer will be addressed at that time No acute intervention needed now Discussed Condition With Dr Antonina DOTSON attending who agrees with this plan Rosendo Hood Sep 29, 2017 16:34
[2017-09-29] MEDS: TAMSULOSIN HCL 0.4 MG CAP PO SCH (18:21)
[2017-09-30] VITALS (12 sets, daily range): BP systolic 130–164; BP diastolic 58–100; PULSE 104–157; RESP 15–24; TEMP 97.9–98.5; O2SAT 95–100
[2017-09-30] MEDS: PIPERACIL-TAZO 2.25 GM PREMIX 50 ML IV SCH ×4 (01:31→21:19)
[2017-09-30] MEDS: MULTIVITAMIN INJ 10 ML, FOLIC ACID INJ 1 MG in SODIUM CHLORID 0.9% 500 ML INJ 500 ML IV SCH (01:31)
[2017-09-30 06:52] LABS: BICARBONATE 26.3 MEQ/L (21.0-32.0); CALCIUM 7.9 MG/DL (8.5-10.1); CREATININE 1.64 MG/DL (0.60-1.30); MAGNESIUM 0.9 MG/DL (1.5-2.5)
--- NOTE | 2017-09-30 08:06 | HHI.PR ---
Subjective Remarks in no acute distress. more alert today. still on restraints. denies pain. no fever. Objective Vitals Vital Signs Date Time Temp Pulse Resp B/P (MAP) Pulse Ox O2 Delivery O2 Flow Rate FiO2 09/30/17 06:00 104 09/30/17 04:00 113 09/30/17 04:00 98.5 113 15 151/69 (96) 100 09/30/17 02:00 105 09/30/17 00:00 115 09/30/17 00:00 97.9 115 19 130/58 (82) 100 09/29/17 22:00 111 09/29/17 20:00 105 09/29/17 20:00 98.3 105 18 166/73 (104) 100 09/29/17 19:23 100 Nasal Cannula 2.00 09/29/17 19:00 100 Nasal Cannula 4.00 09/29/17 18:00 112 09/29/17 16:00 104 09/29/17 16:00 98.8 104 16 173/76 (108) 99 09/29/17 14:00 115 09/29/17 12:00 97.9 113 18 174/81 (112) 100 09/29/17 12:00 113 09/29/17 10:00 80 09/29/17 08:45 96 Nasal Cannula 2.00 I/O 09/29/17 09/29/17 09/29/17 09/30/17 09/30/17 09/30/17 07:00 15:00 23:00 07:00 15:00 23:00 Intake Total 590 ml 151 ml 6940 ml 500 ml Output Total 2300 ml 1800 ml 1000 ml Balance -1710 ml 151 ml 5140 ml -500 ml Intake Oral 40 ml 850 ml 500 ml IV Total 550 ml 151 ml 6090 ml Output Urine Total 2300 ml 1800 ml 1000 ml # Bowel Movements 0 0 0 Result Diagram: 09/29/17 0645 09/30/17 0614 Imaging Last Impressions Chest X-Ray 09/29/17 06 Signed Impressions: Service Date/Time: Friday, September 29, 2017 05:26 - CONCLUSION: No acute cardiopulmonary disease demonstrated. Rodriguez Donald MD Head CT 09/26/17 1648 Signed Impressions: Service Date/Time: Tuesday, September 26, 2017 20:11 - CONCLUSION: 1. Stable senescent changes without acute intracranial abnormality. Sg López MD Abdomen/Pelvis CT 09/26/17 0000 Signed Impressions: Service Date/Time: Tuesday, September 26, 2017 22:06 - CONCLUSION: 1. Suboptimal examination performed without intravenous or oral contrast limiting the sensitivity of the exam. 2. Silva catheter in the bladder with wall thickening, air and questionable mass along the right side of the bladder wall. Cystoscopy may be helpful. 3. Right upper quadrant calcifications which appear to represent calcified gallstones. The gallbladder is poorly delineated in this region. 4. Small area of consolidation in the left lower lobe which could represent pneumonia. 5. Nonobstructive bowel gas pattern. Visualization is suboptimal due to lack of oral contrast, streak and motion artifact. Rayo Escudero MD Objective Remarks GENERAL: in no apparent distress. CARDIOVASCULAR: Regular rate and regular rhythm without murmurs, gallops, or rubs. RESPIRATORY: Clear to auscultation. Breath sounds equal bilaterally. No wheezes , rales, or rhonchi. GASTROINTESTINAL: Abdomen soft, non-tender, nondistended. Normal, active bowel sounds MUSCULOSKELETAL: Extremities without clubbing, cyanosis, or edema. NEURO: awake and more alert today. Medications and IVs Inpatient Medications Albuterol Sulfate (Albuterol Neb) 2.5 mg Q2HR NEB PRN INH SOB/WHEEZING; Start 09/26/17 at 21:45 Bisacodyl (Dulcolax Supp) 10 mg DAILY PRN RECTAL SEVERE CONSITIPATION; Start at 21:45 Calcium Chloride 1 gm/Sodium Chloride 110 ml @ 110 mls/hr ONCE ONCE IV Last administered on 09/27/17at 19:25; Start 09/27/17 at 18:00; Stop 09/27/17 at 18:59 ; Status DC Calcium Gluconate 2 gm/Dextrose 120 ml @ 120 mls/hr ONCE ONCE IV Last administered on 09/27/17at 08:46; Start 09/27/17 at 08:00; Stop 09/27/17 at 08:59 ; Status DC Chlorhexidine Gluconate (Chlorhexidine 2% Cloth) 3 pack UNSCH PRN TOP HYGIENIC CARE; Start 09/26/17 at 21:45 Dextrose 1,000 ml @ 100 mls/hr Q10H IV Last administered on 09/29/17at 20:58; Start 09/26/17 at 22:00 Dextrose (D50w (Syr) Inj) 50 ml ONCE ONCE IV PUSH Last administered on at 17:29; Start 09/26/17 at 17:30; Stop 09/26/17 at 17:31; Status DC Dextrose (D50w (Vial) Inj) 50 ml ONCE ONCE IV PUSH Last administered on at 21:00; Start 09/26/17 at 21:00; Stop 09/26/17 at 21:01; Status DC Flumazenil (Romazicon Inj) 0.2 mg Q1M PRN IV PUSH SEE LABEL COMMENTS; Start at 21:30 Glucagon (Glucagon Inj) 1 mg ONCE ONCE IV PUSH ; Start 09/26/17 at 18:00; Stop 09/26/17 at 18:23; Status DC Heparin Sodium (Porcine) (Heparin Inj) 5,000 units Q12H SQ Last administered on 09/29/17at 20:37; Start 09/26/17 at 22:00 Lactulose (Lactulose Liq) 30 ml DAILY PRN PO SEVERE CONSITIPATION; Start at 21:45 Lorazepam (Ativan Inj) 2 mg Q15M PRN IV PUSH CIWA > 20 Last administered on at 04:51; Start 09/26/17 at 21:30 Lorazepam (Ativan) 2 mg Q2H PRN PO CIWA 11-14; Start 09/26/17 at 21:30 Magnesium Hydroxide (Milk Of Magnesia Liq) 30 ml Q12H PRN PO Mild constipation ; Start 09/26/17 at 21:45 Magnesium Oxide (Mag-Ox) 400 mg DAILY PO Last administered on 09/29/17at 10:14; Start 09/29/17 at 09:00 Magnesium Sulfate/ Dextrose 100 ml @ 100 mls/hr Q1H IV Last administered on at 05:51; Start 09/28/17 at 04:30; Stop 09/28/17 at 06:29; Status DC Miscellaneous Information 1 Q361D XX ; Start 09/26/17 at 21:45 Multivitamins 10 ml/Folic Acid 1 mg/Sodium Chloride 510.2 ml @ 125 mls/hr Q24H IV Last administered on 09/30/17at 01:31; Start 09/26/17 at 23:00; Stop at 22:59 Ondansetron HCl (Zofran Inj) 4 mg Q6H PRN IV PUSH NAUSEA OR VOMITING; Start at 21:45 Pantoprazole Sodium (Protonix) 40 mg DAILY PO Last administered on 09/29/17at 10 :16; Start 09/27/17 at 09:00 Pharmacy Profile Note 0 ml @ 0 mls/hr UNSCH OTHER ; Start 09/26/17 at 20:45 Piperacillin Sod/ Tazobactam Sod 50 ml @ 100 mls/hr STAT ONCE IV Last administered on 09/27/17at 08:46; Start 09/27/17 at 07:00; Stop 09/27/17 at 07:29 ; Status DC Potassium Phosphate 15 mmol/ Sodium Chloride 155 ml @ 38.75 mls/ hr ONCE ONCE IV Last administered on 09/28/17at 08:34; Start 09/28/17 at 04:30; Stop at 08:29; Status DC Potassium Bicarb/ Potassium Chloride (K-Lyte Cl Eff) 100 meq ONCE ONCE PO Last administered on 09/27/17at 20:46; Start 09/27/17 at 18:00; Stop 09/27/17 at 18:01; Status DC Potassium Chloride (KCl) 40 meq ONCE ONCE PO Last administered on 09/29/17at 10 :14; Start 09/29/17 at 08:15; Stop 09/29/17 at 08:17; Status DC Senna/Docusate Sodium (Juliet-Colace) 1 tab BID PO Last administered on at 10:14; Start 09/27/17 at 09:00 Sennosides (Senokot) 17.2 mg Q12H PRN PO Moderate constipation; Start 09/26/17 at 21:45 Sodium Chloride (NS Flush) 2 ml BID IV FLUSH Last administered on 09/29/17at 20: 22; Start 09/27/17 at 09:00 Sodium Chloride 77 meq/Dextrose 1,019.25 ml @ 50 mls/hr [id number] IV ; Start at 18:00; Stop 09/26/17 at 18:02; Status DC Tamsulosin HCl (Flomax) 0.4 mg DAILY PO Last administered on 09/29/17at 18:21; Start 09/29/17 at 16:00 Thiamine HCl (Vitamin B1) 100 mg DAILY PO Last administered on 09/29/17at 10:14 ; Start 09/29/17 at 09:00 Thiamine HCl 100 mg/Sodium Chloride 101 ml @ 100 mls/hr Q24H IV Last administered on 09/28/17at 20:47; Start 09/26/17 at 22:00; Stop 09/29/17 at 21:59 ; Status DC Vancomycin HCl 1000 mg/Sodium Chloride 250 ml @ 250 mls/hr ONCE ONCE IV Last administered on 09/29/17at 14:35; Start 09/29/17 at 13:00; Stop 09/29/17 at 13:59 ; Status DC Vancomycin HCl 1250 mg/Sodium Chloride 262.5 ml @ 250 mls/hr ONCE ONCE IV Last administered on 09/28/17at 13:44; Start 09/28/17 at 12:00; Stop 09/28/17 at 13:02; Status DC Vancomycin HCl 1750 mg/Sodium Chloride 517.5 ml @ 258.75 mls/ hr ONCE ONCE IV Last administered on 09/26/17at 18:30; Start 09/26/17 at 18:30; Stop 09/26/17 at 20:29; Status DC A/P Problem List: (1) BPH (benign prostatic hyperplasia) ICD Code: N40.0 - Benign prostatic hyperplasia without lower urinary tract symptoms (2) Acute urinary retention ICD Code: R33.8 - Other retention of urine Status: Acute Assessment and Plan Cocaine abuse Marijuana abuse Hyperammonemia Alcohol abuse CT brain -no acute abnormality States he hasn't had a drink "in a while". Monitor for signs and symptoms of alcohol withdrawal. Ativan as needed Thiamine/multi vitamin/folic acid supplementation. AST elevation- improved. Acute kidney injury Hyponatremia Hypokalemia Acute hypomagnesemia Acute anion gap metabolic acidemia with lactic acidemia. Hypoglycemia-resolved. questionable bladder mass continue D5 0.9 NaCl at 100 L per hour. Silva inserted in the emergency department. Suspect he was having urinary retention and may not have been performing in and out catheter regularly. Monitor intake and output. CT abdomen and pelvis did not show any hydronephrosis. electrolyte supplementation as needed. nephrology following. urology consult appreciated; the patient will be discharged with silva cath in place and outpatient f/u. Severe sepsis Urinary tract infection Prostate cancer with history of urinary retention status post TURP, I/O cath at home UTI Silva inserted in the emergency department. Prior UTI in April 2017 was Escherichia coli and was resistant to fluoroquinolones stop Vancomycin and continue with Zosyn for now. History of prostate cancer status post TURP 2005 Pathology demonstrated poorly differentiated adenocarcinoma urology consult as noted above. continue PT. PROPH: SCDsHeparin 5000 units subcutaneous every 12 hours for DVT prophylaxis. Protonix 40 mg by mouth daily for stress ulcer prophylaxis and history of GERD with prior PPI use. transfer to telemetry. Liz Rm MD Sep 30, 2017 08:06
[2017-09-30] MEDS: TAMSULOSIN HCL 0.4 MG CAP PO SCH (08:08)
[2017-09-30] MEDS: PANTOPRAZOLE SOD 40 MG DELAYED RELEASE TAB PO SCH (08:08)
[2017-09-30] MEDS: SODIUM CHLORIDE 0.9% FLUSH 10 ML FLUSH IV FLUSH SCH ×2 (08:09→21:19)
[2017-09-30] MEDS: MAGNESIUM OXIDE 400 MG TAB PO SCH (08:09)
[2017-09-30] MEDS: DOCUSATE SODIUM 50 MG/SENNA 8.6 MG TAB PO SCH ×2 (08:09→21:00)
--- NOTE | 2017-09-30 09:59 | HHI.NPPN ---
Subjective Complaints: Confused General Problems: Anemia Renal Failure: Chronic, Acute, Stage III History of Present Illness Patient is a 77-year-old male with past medical history of hypertension, prostate cancer, urinary retention with self I/O cath, cocaine abuse, GERD, prior TIA. Presented to ER complaining of 2 weeks of dizziness and weakness. History from patient is limited due to mental status. He was found to have acute kidney injury with creatinine of 6.9, BUN 64 on admission. His creatinine has slowly improved with a creatinine of 2.73 today. Creatinine was noted to be 1.0 in 04/23. Has a indwelling silva catheter that is draining clear yellow urine Additional Remarks Patient remains confused, no acute complaints. Objective Data Data Vital Signs Date Time Temp Pulse Resp B/P (MAP) Pulse Ox O2 Delivery O2 Flow Rate FiO2 09/30/17 06:00 104 09/30/17 04:00 113 09/30/17 04:00 98.5 113 15 151/69 (96) 100 09/30/17 02:00 105 09/30/17 00:00 115 09/30/17 00:00 97.9 115 19 130/58 (82) 100 09/29/17 22:00 111 09/29/17 20:00 105 09/29/17 20:00 98.3 105 18 166/73 (104) 100 09/29/17 19:23 100 Nasal Cannula 2.00 09/29/17 19:00 100 Nasal Cannula 4.00 09/29/17 18:00 112 09/29/17 16:00 104 09/29/17 16:00 98.8 104 16 173/76 (108) 99 09/29/17 14:00 115 09/29/17 12:00 97.9 113 18 174/81 (112) 100 09/29/17 12:00 113 09/29/17 10:00 80 -: 09/29/17 0645 09/30/17 0614 Physical Exam General Appearance: No Acute Distress, Comfortable Throat Throat Exam: Oral Mucosa [place] & Moist Pulmonary Resp Exam: Clear Bilaterally, Breath Sounds Equal Cardiology CV Exam: Regular Gastrointestinal/Abdomen GI Exam: Soft, Non-Tender Genitourinary Exam: Flank Non-Tender Integumentary Skin Exam: Clear, Warm Extremeties Extremities Exam: No Edema Neurologic Neuro Exam: Alert Assessment/Plan Problem List: (1) JACOBO (acute kidney injury) ICD Codes: N17.9 - Acute kidney failure, unspecified Plan: Acute kidney injury with creatinine of 6.9, BUN 64 on admission most likely related to pre renal/ obstruction Baseline creatinine was noted to be 1.0 in 04/23 Creatinine stable at 1.6 today Continues to have good UOP over past [address] of pelvis with kidneys of normal in size and shape. There is no mass, stone , or hydronephrosis. Possible mass in the Bladder. Follow Mag, potassium, and phos Plan Maintain indwelling silva catheter secondary to retention and to maintain I+O Continue IVFs with D5NS at 100cc/hour. Will order phosphorus replacement On flomax, outpatient cystoscopy per Avoid nephrotoxins. (2) Increased ammonia level ICD Codes: R79.89 - Other specified abnormal findings of blood chemistry Status: Acute (3) Encephalopathy, toxic ICD Codes: G92 - Toxic encephalopathy; R65.20 - Severe sepsis without septic shock Status: Acute (4) Hypertensive emergency ICD Codes: I16.1 - Hypertensive emergency Status: Acute (5) UTI (urinary tract infection) ICD Codes: N39.0 - Urinary tract infection, site not specified Status: Acute (6) Acute urinary retention ICD Codes: R33.8 - Other retention of urine Status: Acute (7) Hypomagnesemia ICD Codes: E83.42 - Hypomagnesemia Status: Acute (8) Hypertension ICD Codes: I10 - Essential (primary) hypertension Status: Acute Problem Qualifiers (1) UTI (urinary tract infection): Qualified Codes: N30.00 - Acute cystitis without hematuria Donis Oquendo MD Sep 30, 2017 09:59
[2017-09-30] MEDS: HEPARIN SODIUM - SQ 10,000 UNITS/ML VIAL SQ SCH ×2 (10:00→21:18)
[2017-09-30] MEDS ORDERED: MAGNESIUM SULFATE 1 GM PREMIX 100 ML IV ONE (10:15)
[2017-09-30] MEDS ORDERED: ENALAPRILAT 1.25 MG/ML VIAL IV PUSH PRN (10:15)
[2017-09-30] MEDS: MAGNESIUM SULFATE 1 GM PREMIX 100 ML IV SCH ×2 (11:00→12:00)
[2017-09-30] MEDS ORDERED: POTASSIUM PHOSPHATE INJ 30 MMOL in SODIUM CHLOR 0.9% 250 ML INJ 250 ML IV ONE (12:00)
--- NOTE | 2017-09-30 14:24 | EKG ---
Date Performed: 09/30/2017 Time Performed: 13:32:17 PTAGE: 77 years EKG: SINUS TACHYCARDIA ST & T-WAVE ABNORMALITY, CONSIDER INFERIOR AND LATERAL ISCHEMIA ABNORMAL RHYTHM ECG PREVIOUS TRACING : 09/26/2017 17.01 Compared to previous tracing, inferior and lateral ST/ T ch anges are now much more pronounced. DOCTOR: Markie Harrison Interpretating Date/Time 09/30/2017 14:22:06
[2017-09-30] MEDS: DEXTROSE 5% IN WATE 1000ML INJ 1,000 ML IV SCH ×2 (14:55→16:58)
[2017-09-30] MEDS: POTASSIUM PHOSPHATE/SODIUM PHOSPHATE 250 MG TAB PO SCH ×2 (14:57→21:19)
[2017-10-01] VITALS (10 sets, daily range): BP systolic 116–152; BP diastolic 56–71; PULSE 97–115; RESP 16–20; TEMP 97.5–98.9; O2SAT 98–100
[2017-10-01] MEDS: PIPERACIL-TAZO 2.25 GM PREMIX 50 ML IV SCH ×4 (02:00→20:11)
[2017-10-01] MEDS: DEXTROSE 5% IN WATE 1000ML INJ 1,000 ML IV SCH ×2 (02:58→10:22)
[2017-10-01] MEDS: CHLORHEXIDINE GLUCONATE 2 % 1 PACK (2 CLOTHS) TOP SCH (04:00)
[2017-10-01 04:57] LABS: AUTOMATED NEUTROPHIL # 5.1 TH/MM3 (1.8-7.7); BASOPHIL % 0.5 % (0.0-2.0); EOSINOPHIL # 0.1 TH/MM3 (0-0.4); EOSINOPHIL % 1.2 % (0.0-4.0); HEMATOCRIT 29.9 % (39.0-51.0); HEMOGLOBIN 10.3 GM/DL (13.0-17.0); LYMPHOCYTE # 1.1 TH/MM3 (1.0-4.8); MEAN CELL VOLUME 90.7 FL (80.0-100.0); MEAN CORPUSCULAR HEMOGLOBIN 31.3 PG (27.0-34.0); MEAN CORPUSCULAR HGB CONC 34.5 % (32.0-36.0); MEAN PLATELET VOLUME 7.2 FL (7.0-11.0); MONO % 7.3 % (0.0-8.0); MONOCYTE # 0.5 TH/MM3 (0-0.9); PLATELET COUNT 204 TH/MM3 (150-450); RED CELL DISTRIBUTION WIDTH 12.8 % (11.6-17.2); WHITE BLOOD COUNT 6.9 TH/MM3 (4.0-11.0)
[2017-10-01] MEDS: POTASSIUM PHOSPHATE/SODIUM PHOSPHATE 250 MG TAB PO SCH ×3 (06:00→20:09)
[2017-10-01 06:34] LABS: ALBUMIN 2.2 GM/DL (3.4-5.0); AST (GOT) 27 U/L (15-37); BICARBONATE 23.3 MEQ/L (21.0-32.0); BLOOD UREA NITROGEN 8 MG/DL (7-18); CALCIUM 7.7 MG/DL (8.5-10.1); CHLORIDE 111 MEQ/L (98-107); CREATININE 1.49 MG/DL (0.60-1.30); GLOMERULAR FILTRATION RATE 56 ML/MIN (>89); GLUCOSE,RANDOM 104 MG/DL (74-106); MAGNESIUM 1.4 MG/DL (1.5-2.5); SODIUM (NA) 142 MEQ/L (136-145)
[2017-10-01 06:39] LABS: ALKALINE PHOSPHATASE 49 U/L (45-117); ALT (GPT) 17 U/L (12-78); PHOSPHORUS 2.8 MG/DL (2.5-4.9); TOTAL BILIRUBIN ADULT 0.4 MG/DL (0.2-1.0); TOTAL PROTEIN 5.5 GM/DL (6.4-8.2)
[2017-10-01] MEDS: DOCUSATE SODIUM 50 MG/SENNA 8.6 MG TAB PO SCH ×2 (08:08→20:09)
[2017-10-01] MEDS: FOLIC ACID 1 MG TAB PO SCH (08:09)
[2017-10-01] MEDS: MULTIVITAMIN TAB PO SCH (08:09)
[2017-10-01] MEDS: MAGNESIUM OXIDE 400 MG TAB PO SCH (08:09)
[2017-10-01] MEDS: TAMSULOSIN HCL 0.4 MG CAP PO SCH (08:09)
[2017-10-01] MEDS: PANTOPRAZOLE SOD 40 MG DELAYED RELEASE TAB PO SCH (08:09)
[2017-10-01] MEDS: SODIUM CHLORIDE 0.9% FLUSH 10 ML FLUSH IV FLUSH SCH ×2 (08:09→21:00)
--- NOTE | 2017-10-01 08:17 | HHI.PR ---
Subjective Remarks in no acute distress. looks better today. had some hematuria yesterday which has resolved. denies pain. no fever. d/w the RN. Objective Vitals Vital Signs Date Time Temp Pulse Resp B/P (MAP) Pulse Ox O2 Delivery O2 Flow Rate FiO2 10/01/17 06:00 104 10/01/17 04:00 98.0 103 16 152/71 (98) 100 10/01/17 04:00 103 10/01/17 02:00 103 10/01/17 00:00 98.8 115 18 124/62 (82) 99 10/01/17 00:00 115 09/30/17 22:00 111 09/30/17 20:00 Nasal Cannula 4.00 Humidified 09/30/17 20:00 125 09/30/17 20:00 98.4 125 18 130/65 (86) 100 09/30/17 18:00 124 09/30/17 16:00 98.4 120 24 131/63 (85) 100 09/30/17 16:00 120 09/30/17 14:00 134 09/30/17 12:00 98.4 157 24 162/100 (120) 99 09/30/17 12:00 157 09/30/17 10:00 124 I/O 09/30/17 09/30/17 09/30/17 10/01/17 10/01/17 10/01/17 06:59 14:59 22:59 06:59 14:59 22:59 Intake Total 500 ml 1842 ml 500 ml Output Total 1000 ml 1000 ml 700 ml Balance -500 ml 842 ml -200 ml Intake Oral 500 ml 600 ml 240 ml IV Total 1242 ml 260 ml Output Urine Total 1000 ml 1000 ml 700 ml # Bowel Movements 0 1 1 Result Diagram: 10/01/17 0446 10/01/17 0446 Imaging Last Impressions Chest X-Ray 09/29/17 0600 Signed Impressions: Service Date/Time: Friday, September 29, 2017 05:26 - CONCLUSION: No acute cardiopulmonary disease demonstrated. Rodriguez Donald MD Head CT 09/26/17 1648 Signed Impressions: Service Date/Time: Tuesday, September 26, 2017 20:11 - CONCLUSION: 1. Stable senescent changes without acute intracranial abnormality. Sg López MD Abdomen/Pelvis CT 09/26/17 0000 Signed Impressions: Service Date/Time: Tuesday, September 26, 2017 22:06 - CONCLUSION: 1. Suboptimal examination performed without intravenous or oral contrast limiting the sensitivity of the exam. 2. Silva catheter in the bladder with wall thickening, air and questionable mass along the right side of the bladder wall. Cystoscopy may be helpful. 3. Right upper quadrant calcifications which appear to represent calcified gallstones. The gallbladder is poorly delineated in this region. 4. Small area of consolidation in the left lower lobe which could represent pneumonia. 5. Nonobstructive bowel gas pattern. Visualization is suboptimal due to lack of oral contrast, streak and motion artifact. Rayo Escudero MD Objective Remarks GENERAL: in no apparent distress. CARDIOVASCULAR: Regular rate and regular rhythm without murmurs, gallops, or rubs. RESPIRATORY: Clear to auscultation. Breath sounds equal bilaterally. No wheezes , rales, or rhonchi. GASTROINTESTINAL: Abdomen soft, non-tender, nondistended. Normal, active bowel sounds MUSCULOSKELETAL: Extremities without clubbing, cyanosis, or edema. NEURO: awake and more alert today. Medications and IVs Inpatient Medications Albuterol Sulfate (Albuterol Neb) 2.5 mg Q2HR NEB PRN INH SOB/WHEEZING; Start 09/26/17 at 21:45 Bisacodyl (Dulcolax Supp) 10 mg DAILY PRN RECTAL SEVERE CONSITIPATION; Start at 21:45 Calcium Chloride 1 gm/Sodium Chloride 110 ml @ 110 mls/hr ONCE ONCE IV Last administered on 09/27/17at 19:25; Start 09/27/17 at 18:00; Stop 09/27/17 at 18:59 ; Status DC Calcium Gluconate 2 gm/Dextrose 120 ml @ 120 mls/hr ONCE ONCE IV Last administered on 09/27/17at 08:46; Start 09/27/17 at 08:00; Stop 09/27/17 at 08:59 ; Status DC Chlorhexidine Gluconate (Chlorhexidine 2% Cloth) 3 pack UNSCH PRN TOP HYGIENIC CARE; Start 09/26/17 at 21:45 Dextrose 1,000 ml @ 100 mls/hr Q10H IV Last administered on 09/30/17at 16:58; Start 09/26/17 at 22:00 Dextrose (D50w (Syr) Inj) 50 ml ONCE ONCE IV PUSH Last administered on at 17:29; Start 09/26/17 at 17:30; Stop 09/26/17 at 17:31; Status DC Dextrose (D50w (Vial) Inj) 50 ml ONCE ONCE IV PUSH Last administered on at 21:00; Start 09/26/17 at 21:00; Stop 09/26/17 at 21:01; Status DC Enalaprilat (Vasotec Inj) 1.25 mg Q8H PRN IV PUSH SBP> OR = 180, DBP> OR = 100 ; Start 09/30/17 at 10:15 Flumazenil (Romazicon Inj) 0.2 mg Q1M PRN IV PUSH SEE LABEL COMMENTS; Start at 21:30 Folic Acid (Folate) 1 mg DAILY PO Last administered on 10/01/17at 08:09; Start 10/01/17 at 09:00 Glucagon (Glucagon Inj) 1 mg ONCE ONCE IV PUSH ; Start 09/26/17 at 18:00; Stop 09/26/17 at 18:23; Status DC Heparin Sodium (Porcine) (Heparin Inj) 5,000 units Q12H SQ Last administered on 09/30/17at 21:18; Start 09/26/17 at 22:00 Lactulose (Lactulose Liq) 30 ml DAILY PRN PO SEVERE CONSITIPATION; Start at 21:45 Lorazepam (Ativan Inj) 2 mg Q15M PRN IV PUSH CIWA > 20 Last administered on at 04:51; Start 09/26/17 at 21:30 Lorazepam (Ativan) 2 mg Q2H PRN PO CIWA 11-14; Start 09/26/17 at 21:30 Magnesium Hydroxide (Milk Of Magnesia Liq) 30 ml Q12H PRN PO Mild constipation ; Start 09/26/17 at 21:45 Magnesium Oxide (Mag-Ox) 400 mg DAILY PO Last administered on 10/01/17at 08:09; Start 09/29/17 at 09:00 Magnesium Sulfate/ Dextrose 100 ml @ 100 mls/hr ONCE ONCE IV Last administered on 09/30/17at 14:56; Start 09/30/17 at 10:15; Stop 09/30/17 at 11:14 ; Status DC Miscellaneous Information 1 Q361D XX ; Start 09/26/17 at 21:45 Multivitamins (Theragran) 1 tab DAILY PO Last administered on 10/01/17at 08:09; Start 10/01/17 at 09:00 Multivitamins 10 ml/Folic Acid 1 mg/Sodium Chloride 510.2 ml @ 125 mls/hr Q24H IV Last administered on 09/30/17at 01:31; Start 09/26/17 at 23:00; Stop at 08:07; Status DC Ondansetron HCl (Zofran Inj) 4 mg Q6H PRN IV PUSH NAUSEA OR VOMITING; Start at 21:45 Pantoprazole Sodium (Protonix) 40 mg DAILY PO Last administered on 10/01/17at 08 :09; Start 09/27/17 at 09:00 Pharmacy Profile Note 0 ml @ 0 mls/hr UNSCH OTHER ; Start 09/26/17 at 20:45; Stop 09/30/17 at 08:07; Status DC Piperacillin Sod/ Tazobactam Sod 50 ml @ 100 mls/hr STAT ONCE IV Last administered on 09/27/17at 08:46; Start 09/27/17 at 07:00; Stop 09/27/17 at 07:29 ; Status DC Potassium Phosphate 15 mmol/ Sodium Chloride 155 ml @ 38.75 mls/ hr ONCE ONCE IV Last administered on 09/28/17at 08:34; Start 09/28/17 at 04:30; Stop at 08:29; Status DC Potassium Phosphate 30 mmol/ Sodium Chloride 260 ml @ 43.333 mls/ hr ONCE ONCE IV Last administered on 09/30/17at 14:57; Start 09/30/17 at 12:00; Stop at 17:59; Status DC Potassium Bicarb/ Potassium Chloride (K-Lyte Cl Eff) 100 meq ONCE ONCE PO Last administered on 09/27/17at 20:46; Start 09/27/17 at 18:00; Stop 09/27/17 at 18:01; Status DC Potassium Chloride (KCl) 40 meq ONCE ONCE PO Last administered on 09/29/17at 10 :14; Start 09/29/17 at 08:15; Stop 09/29/17 at 08:17; Status DC Potassium Phos/ Sodium Phos (K-Phos Neutral) 250 mg Q8HR PO Last administered on 10/01/17at 08:08; Start 09/30/17 at 14:00 Senna/Docusate Sodium (Juliet-Colace) 1 tab BID PO Last administered on at 08:09; Start 09/27/17 at 09:00 Sennosides (Senokot) 17.2 mg Q12H PRN PO Moderate constipation; Start 09/26/17 at 21:45 Sodium Chloride (NS Flush) 2 ml BID IV FLUSH Last administered on 10/01/17at 08: 09; Start 09/27/17 at 09:00 Sodium Chloride 77 meq/Dextrose 1,019.25 ml @ 50 mls/hr [id number] IV ; Start at 18:00; Stop 09/26/17 at 18:02; Status DC Tamsulosin HCl (Flomax) 0.4 mg DAILY PO Last administered on 10/01/17at 08:09; Start 09/29/17 at 16:00 Thiamine HCl (Vitamin B1) 100 mg DAILY PO Last administered on 09/29/17at 10:14 ; Start 09/29/17 at 09:00; Stop 09/30/17 at 08:07; Status DC Thiamine HCl 100 mg/Sodium Chloride 101 ml @ 100 mls/hr Q24H IV Last administered on 09/28/17at 20:47; Start 09/26/17 at 22:00; Stop 09/29/17 at 21:59 ; Status DC Vancomycin HCl 1000 mg/Sodium Chloride 250 ml @ 250 mls/hr ONCE ONCE IV Last administered on 09/29/17at 14:35; Start 09/29/17 at 13:00; Stop 09/29/17 at 13:59 ; Status DC Vancomycin HCl 1250 mg/Sodium Chloride 262.5 ml @ 250 mls/hr ONCE ONCE IV Last administered on 09/28/17at 13:44; Start 09/28/17 at 12:00; Stop 09/28/17 at 13:02; Status DC Vancomycin HCl 1750 mg/Sodium Chloride 517.5 ml @ 258.75 mls/ hr ONCE ONCE IV Last administered on 2/20/18at 18:30; Start 09/26/17 at 18:30; Stop 09/26/17 at 20:29; Status DC A/P Problem List: (1) BPH (benign prostatic hyperplasia) ICD Code: N40.0 - Benign prostatic hyperplasia without lower urinary tract symptoms (2) Acute urinary retention ICD Code: R33.8 - Other retention of urine Status: Acute Assessment and Plan Cocaine abuse Marijuana abuse Hyperammonemia Alcohol abuse CT brain -no acute abnormality States he hasn't had a drink "in a while". Monitor for signs and symptoms of alcohol withdrawal. Ativan as needed Thiamine/multi vitamin/folic acid supplementation. AST elevation- improved. Acute kidney injury- improving. Hyponatremia-resolved. Hypokalemia-replaced. Acute hypomagnesemia-improved. Hypophosphatemia-resolved. Hypoglycemia-resolved. questionable bladder mass Hematuria- traumatic ( after the patient removed the silva cath)- now resolved. continue D5 0.9 NaCl at 100 L per hour. Silva inserted in the emergency department. Suspect he was having urinary retention and may not have been performing in and out catheter regularly. Monitor intake and output. CT abdomen and pelvis did not show any hydronephrosis. electrolyte supplementation as needed. nephrology following. urology consult appreciated; the patient will be discharged with silva cath in place and outpatient f/u. Severe sepsis Urinary tract infection Prostate cancer with history of urinary retention status post TURP, I/O cath at home UTI continue with silva cath. Prior UTI in April 2017 was Escherichia coli and was resistant to fluoroquinolones continue with Zosyn for now. hypertension/ tachycardia- due to alcohol withdrawal start on po cardizem will continue to monitor and adjust the regimen as needed. History of prostate cancer status post TURP 2005 Pathology demonstrated poorly differentiated adenocarcinoma urology consult as noted above. continue PT. DVT prophylaxis with subq Heparin. transfer to telemetry. Discharge Planning dc planning to rehab. Liz Rm MD Oct 01, 2017 08:17
[2017-10-01] MEDS ORDERED: DILTIAZEM HCL 30 MG TAB PO SCH (08:30)
[2017-10-01] MEDS ORDERED: METOPROLOL TARTRATE 25 MG TAB PO SCH (09:00)
--- NOTE | 2017-10-01 10:02 | HHI.NPPN ---
Subjective Complaints: Confused General Problems: Anemia Renal Failure: Chronic, Acute, Stage III History of Present Illness Patient is a 77-year-old male with past medical history of hypertension, prostate cancer, urinary retention with self I/O cath, cocaine abuse, GERD, prior TIA. Presented to ER complaining of 2 weeks of dizziness and weakness. History from patient is limited due to mental status. He was found to have acute kidney injury with creatinine of 6.9, BUN 64 on admission. His creatinine has slowly improved with a creatinine of 2.73 today. Creatinine was noted to be 1.0 in 04/23. Has a indwelling silva catheter that is draining clear yellow urine Additional Remarks Patient remains confused, no acute complaints. Objective Data Data Vital Signs Date Time Temp Pulse Resp B/P (MAP) Pulse Ox O2 Delivery O2 Flow Rate FiO2 10/01/17 07:00 100 Nasal Cannula 4.00 Humidified 10/01/17 06:00 104 10/01/17 04:00 98.0 103 16 152/71 (98) 100 10/01/17 04:00 103 10/01/17 02:00 103 10/01/17 00:00 98.8 115 18 124/62 (82) 99 10/01/17 00:00 115 09/30/17 22:00 111 09/30/17 20:00 Nasal Cannula 4.00 Humidified 09/30/17 20:00 125 09/30/17 20:00 98.4 125 18 130/65 (86) 100 09/30/17 18:00 124 09/30/17 16:00 98.4 120 24 131/63 (85) 100 09/30/17 16:00 120 09/30/17 14:00 134 09/30/17 12:00 98.4 157 24 162/100 (120) 99 09/30/17 12:00 157 09/30/17 10:00 124 -: 10/01/17 0446 10/01/17 0446 Physical Exam General Appearance: No Acute Distress, Comfortable Throat Throat Exam: Oral Mucosa [place] & Moist Pulmonary Resp Exam: Clear Bilaterally, Breath Sounds Equal Cardiology CV Exam: Regular Gastrointestinal/Abdomen GI Exam: Soft, Non-Tender Genitourinary Exam: Flank Non-Tender Integumentary Skin Exam: Clear, Warm Extremeties Extremities Exam: No Edema Neurologic Neuro Exam: Alert Assessment/Plan Problem List: (1) JACOBO (acute kidney injury) ICD Codes: N17.9 - Acute kidney failure, unspecified Plan: Acute kidney injury with creatinine of 6.9, BUN 64 on admission most likely related to pre renal/ obstruction Baseline creatinine was noted to be 1.0 in 04/23 Creatinine stable at 1.6 -> 1.4 today Continues to have good UOP over past [address] of pelvis with kidneys of normal in size and shape. There is no mass, stone , or hydronephrosis. Possible mass in the Bladder. Follow Mag, potassium, and phos Plan Maintain indwelling silva catheter secondary to retention and to maintain I+O ( seen with , keep silva at time of eventual D/C) Continue IVFs with D5NS at 100cc/hour. Phosphorus replaced yesterday Will replace magnesium today On flomax, outpatient cystoscopy per Avoid nephrotoxins. (2) Increased ammonia level ICD Codes: R79.89 - Other specified abnormal findings of blood chemistry Status: Acute (3) Encephalopathy, toxic ICD Codes: G92 - Toxic encephalopathy; R65.20 - Severe sepsis without septic shock Status: Acute (4) Hypertensive emergency ICD Codes: I16.1 - Hypertensive emergency Status: Acute (5) UTI (urinary tract infection) ICD Codes: N39.0 - Urinary tract infection, site not specified Status: Acute (6) Acute urinary retention ICD Codes: R33.8 - Other retention of urine Status: Acute (7) Hypomagnesemia ICD Codes: E83.42 - Hypomagnesemia Status: Acute (8) Hypertension ICD Codes: I10 - Essential (primary) hypertension Status: Acute Problem Qualifiers (1) UTI (urinary tract infection): Qualified Codes: N30.00 - Acute cystitis without hematuria Donis Oquendo MD Oct 01, 2017 10:02
[2017-10-01] MEDS: MAGNESIUM SULFATE 1 GM PREMIX 100 ML IV SCH ×2 (10:21→12:11)
[2017-10-01] MEDS: HEPARIN SODIUM - SQ 10,000 UNITS/ML VIAL SQ SCH ×2 (10:22→20:10)
[2017-10-01] MEDS: DILTIAZEM HCL 30 MG TAB PO SCH ×2 (17:41→20:10)
[2017-10-02] VITALS (9 sets, daily range): BP systolic 93–112; BP diastolic 50–58; PULSE 90–101; RESP 16–18; TEMP 97.9–99.4; O2SAT 93–100
[2017-10-02] MEDS: DEXTROSE 5% IN WATE 1000ML INJ 1,000 ML IV SCH ×3 (00:36→21:47)
[2017-10-02] MEDS: DILTIAZEM HCL 30 MG TAB PO SCH ×4 (02:52→21:38)
[2017-10-02] MEDS: PIPERACIL-TAZO 2.25 GM PREMIX 50 ML IV SCH ×2 (02:54→09:53)
[2017-10-02] MEDS: CHLORHEXIDINE GLUCONATE 2 % 1 PACK (2 CLOTHS) TOP SCH (02:54)
[2017-10-02 05:39] LABS: CALCIUM 7.9 MG/DL (8.5-10.1); CREATININE 1.59 MG/DL (0.60-1.30); MAGNESIUM 1.4 MG/DL (1.5-2.5)
[2017-10-02] MEDS: POTASSIUM PHOSPHATE/SODIUM PHOSPHATE 250 MG TAB PO SCH (05:44)
[2017-10-02] MEDS: SODIUM CHLORIDE 0.9% FLUSH 10 ML FLUSH IV FLUSH SCH ×2 (09:00→21:38)
[2017-10-02] MEDS: FOLIC ACID 1 MG TAB PO SCH (09:54)
[2017-10-02] MEDS: DOCUSATE SODIUM 50 MG/SENNA 8.6 MG TAB PO SCH ×2 (09:54→21:38)
[2017-10-02] MEDS: TAMSULOSIN HCL 0.4 MG CAP PO SCH (09:54)
[2017-10-02] MEDS: MAGNESIUM OXIDE 400 MG TAB PO SCH (09:54)
[2017-10-02] MEDS: MULTIVITAMIN TAB PO SCH (09:54)
[2017-10-02] MEDS: PANTOPRAZOLE SOD 40 MG DELAYED RELEASE TAB PO SCH (09:54)
[2017-10-02] MEDS: HEPARIN SODIUM - SQ 10,000 UNITS/ML VIAL SQ SCH ×2 (09:55→22:45)
[2017-10-02] MEDS ORDERED: AMOXICILLIN 875 MG TAB PO ONE (10:45)
--- NOTE | 2017-10-02 12:57 | HHI.NPPN ---
Subjective General Problems: Anemia Renal Failure: Chronic, Acute, Stage III History of Present Illness Patient is a 77-year-old male with past medical history of hypertension, prostate cancer, urinary retention with self I/O cath, cocaine abuse, GERD, prior TIA. Presented to ER complaining of 2 weeks of dizziness and weakness. History from patient is limited due to mental status. He was found to have acute kidney injury with creatinine of 6.9, BUN 64 on admission. His creatinine has slowly improved with a creatinine of 2.73 today. Creatinine was noted to be 1.0 in 04/23. Has a indwelling silva catheter that is draining clear yellow urine Additional Remarks Patient alert with no acute complaints. (Radha Campos) Review of Systems Respiratory Respiratory Remarks Denies any SOB (Radha Campos) Cardiovascular Cardiac Remarks Denies any CP (Radha Campos) Gastrointestinal GI Remarks Denies any abdominal pain (Radha Campos) Objective Data Data Vital Signs Date Time Temp Pulse Resp B/P (MAP) Pulse Ox O2 Delivery O2 Flow Rate FiO2 10/02/17 12:00 98.6 99 18 93/55 (68) 100 10/02/17 10:36 94 10/02/17 08:00 98.3 94 18 101/56 (71) 93 10/02/17 04:00 98.5 98 16 109/57 (74) 100 10/02/17 00:00 99.4 100 16 104/58 (73) 97 10/01/17 20:00 97.5 106 16 116/59 (78) 99 10/01/17 16:30 99 10/01/17 14:00 98.9 104 20 134/64 (87) 98 (Radha Campos) -: 10/01/17 0446 10/02/17 0450 Imaging Last Impressions Chest X-Ray 09/29/17 0600 Signed Impressions: Service Date/Time: Friday, September 29, 2017 05:26 - CONCLUSION: No acute cardiopulmonary disease demonstrated. Rodriguez Donald MD Head CT 09/26/17 1648 Signed Impressions: Service Date/Time: Tuesday, September 26, 2017 20:11 - CONCLUSION: 1. Stable senescent changes without acute intracranial abnormality. Sg López MD Abdomen/Pelvis CT 09/26/17 0000 Signed Impressions: Service Date/Time: Tuesday, September 26, 2017 22:06 - CONCLUSION: 1. Suboptimal examination performed without intravenous or oral contrast limiting the sensitivity of the exam. 2. Silva catheter in the bladder with wall thickening, air and questionable mass along the right side of the bladder wall. Cystoscopy may be helpful. 3. Right upper quadrant calcifications which appear to represent calcified gallstones. The gallbladder is poorly delineated in this region. 4. Small area of consolidation in the left lower lobe which could represent pneumonia. 5. Nonobstructive bowel gas pattern. Visualization is suboptimal due to lack of oral contrast, streak and motion artifact. Rayo Escudero MD (GellerHaleigh rousseaune M. PSYCHOLOGY TECH) Physical Exam General Appearance: No Acute Distress, Comfortable (GellermannRadha M. PSYCHOLOGY TECH) Throat Throat Exam: Oral Mucosa [place] & Moist (GellermannRadha M. PSYCHOLOGY TECH) Pulmonary Resp Exam: Clear Bilaterally, Breath Sounds Equal (GellermannRadha M. PSYCHOLOGY TECH) Cardiology CV Exam: Regular (GellermannRadha M. PSYCHOLOGY TECH) Gastrointestinal/Abdomen GI Exam: Soft, Non-Tender (GellermannRadha M. PSYCHOLOGY TECH) Genitourinary Exam: Flank Non-Tender Remarks indwelling silva (GellermannRadha M. PSYCHOLOGY TECH) Integumentary Skin Exam: Clear, Warm Skin Remarks left arm skin sloughing (GellermannRadha M. PSYCHOLOGY TECH) Extremeties Extremities Exam: No Edema (GellermannRadha M. PSYCHOLOGY TECH) Neurologic Neuro Exam: Alert Neuro Remarks confused (GellersohamRadha M. PSYCHOLOGY TECH) Neuro Exam: Awake (Brisa Elise MD) Assessment/Plan Problem List: (1) JACOBO (acute kidney injury) ICD Codes: N17.9 - Acute kidney failure, unspecified Plan: Acute kidney injury with creatinine of 6.9, BUN 64 on admission most likely related to pre renal/ obstruction Baseline creatinine was noted to be 1.0 in 04/23 Creatinine stable at 1.59 today Continues to have good UOP over past [address] of pelvis with kidneys of normal in size and shape. There is no mass, stone , or hydronephrosis. Possible mass in the Bladder. Plan Maintain indwelling silva catheter secondary to retention and to maintain I+O ( seen with , keep silva at time of eventual D/C) On IVFs with D5NS at 100cc/hour oral fluids encouraged Magnesium, potassium, and calcium level low replacement ordered On flomax, outpatient cystoscopy per Avoid nephrotoxins. (2) Increased ammonia level ICD Codes: R79.89 - Other specified abnormal findings of blood chemistry Status: Acute (3) Encephalopathy, toxic ICD Codes: G92 - Toxic encephalopathy; R65.20 - Severe sepsis without septic shock Status: Acute (4) Hypertensive emergency ICD Codes: I16.1 - Hypertensive emergency Status: Acute (5) UTI (urinary tract infection) ICD Codes: N39.0 - Urinary tract infection, site not specified Status: Acute (6) Acute urinary retention ICD Codes: R33.8 - Other retention of urine Status: Acute (7) Hypomagnesemia ICD Codes: E83.42 - Hypomagnesemia Status: Acute (8) Hypertension ICD Codes: I10 - Essential (primary) hypertension Status: Acute (Radha Campos) Problem List: (1) JACOBO (acute kidney injury) ICD Codes: N17.9 - Acute kidney failure, unspecified Plan: Acute kidney injury with creatinine of 6.9, BUN 64 on admission most likely related to pre renal/ obstruction Baseline creatinine was noted to be 1.0 in 04/23 Creatinine stable at 1.59 today Continues to have good UOP over past [address] of pelvis with kidneys of normal in size and shape. There is no mass, stone , or hydronephrosis. Possible mass in the Bladder. Plan Maintain indwelling silva catheter secondary to retention and to maintain I+O ( seen with , keep silva at time of eventual D/C) On IVFs with D5NS at 100cc/hour oral fluids encouraged Magnesium, potassium, and calcium level low replacement ordered On flomax, outpatient cystoscopy per Avoid nephrotoxins. Patient seen and examined, agree with above. Encourage oral intake, follow the urine out put and BMP. (2) Increased ammonia level ICD Codes: R79.89 - Other specified abnormal findings of blood chemistry Status: Acute (3) Encephalopathy, toxic ICD Codes: G92 - Toxic encephalopathy; R65.20 - Severe sepsis without septic shock Status: Acute (4) Hypertensive emergency ICD Codes: I16.1 - Hypertensive emergency Status: Acute (5) UTI (urinary tract infection) ICD Codes: N39.0 - Urinary tract infection, site not specified Status: Acute (6) Acute urinary retention ICD Codes: R33.8 - Other retention of urine Status: Acute (7) Hypomagnesemia ICD Codes: E83.42 - Hypomagnesemia Status: Acute (8) Hypertension ICD Codes: I10 - Essential (primary) hypertension Status: Acute (Brisa Elise MD) Problem Qualifiers (1) UTI (urinary tract infection): Qualified Codes: N30.00 - Acute cystitis without hematuria Radha Campos Oct 02, 2017 12:57 Brisa Elise MD Oct 02, 2017 19:19
[2017-10-02] MEDS ORDERED: POTASSIUM CHLORIDE 20 MEQ CONTROLLED RELEASE TAB PO ONE (13:00)
[2017-10-02] MEDS: MAGNESIUM SULFATE 1 GM PREMIX 100 ML IV SCH ×2 (14:00→18:09)
[2017-10-02] MEDS: AMOXICILLIN (TRIHYDRATE) 500 MG CAP PO SCH ×2 (14:00→22:45)
--- NOTE | 2017-10-02 14:12 | PD.PSY.CON ---
Provisional Diagnosis Admission Date Sep 26, 2017 at 19:12 [place] I. Adjustment disorder with depressed mood [place] II. Deferred [place] III. BPH, HTN, prostate cancer, UTI History of Present Illness Service Psychiatry Consult Requested By Medical team Reason for Consult Suicidal ideation Primary Care Physician Unknown HPI The patient is a 77-year-old man, unemployed, single, he denies previous psychiatric history, he denies previous suicidal attempts, denies psychiatric hospitalizations, cocaine and alcohol use disorder, with past medical history of hypertension, prostate cancer, urinary retention with self I/O cath,GERD, prior TIA, who presents to [facility] emergency department from home via [facility] complaining of 2 weeks of dizziness and weakness. Initially history from patient was limited due to mental status. Patient was admitted due to severe sepsis, UTI, hyperammonemia. Consulted to psychiatry due to suicidal ideation. Chart was reviewed. On psychiatric evaluation today the patient initially oppositional, a little irritable. He says that the reason he is here is "because I want to be here". However, he was sensitive to redirection. Today he says that his mood is okay, he denies depression, he says that he is love himself "I will never harm myself, that is not me". Patient is oriented in place, partially oriented in time. He denies suicidal and homicidal ideation, he denies visual and auditory hallucinations at this moment. Review of Systems Constitutional: DENIES: Diaphoretic episodes, Fatigue, Fever, Weight gain, Weight loss, Chills, Dizziness, Change in appetite, Night Sweats Endocrine: DENIES: Heat/cold intolerance, Polydipsia, Polyuria, Polyphagia Eyes: DENIES: Blurred vision, Diplopia, Eye inflammation, Eye pain, Vision loss , Photosensitivity, Double Vision Ears, nose, mouth, throat: DENIES: Tinnitus, Hearing loss, Vertigo, Nasal discharge, Oral lesions, Throat pain, Hoarseness, Ear Pain, Running Nose, Epistaxis, Sinus Pain, Toothache, Odynophagia Respiratory: DENIES: Apneas, Cough, Snoring, Wheezing, Hemoptysis, Sputum production, Shortness of breath Cardiovascular: DENIES: Chest pain, Palpitations, Syncope, Dyspnea on Exertion , PND, Lower Extremity Edema, Orthopnea, Claudication Gastrointestinal: DENIES: Abdominal pain, Black stools, Bloody stools, Constipation, Diarrhea, Nausea, Vomiting, Difficulty Swallowing, Anorexia Genitourinary: DENIES: Sexual dysfunction, Urinary frequency, Urinary incontinence, Urgency, Hematuria, Dysuria, Nocturia, Penile Discharge, Testicular Pain, Testicular Swelling Musculoskeletal: DENIES: Joint pain, Muscle aches, Stiffness, Joint Swelling, Back pain, Neck pain Integumentary: DENIES: Abnormal pigmentation, Nail changes, Pruritus, Rash Hematologic/lymphatic: DENIES: Bruising, Lymphadenopathy Immunologic/allergic: DENIES: Eczema, Urticaria Neurologic: DENIES: Abnormal gait, Headache, Localized weakness, Paresthesias, Seizures, Speech Problems, Tremor, Poor Balance Psychiatric: DENIES: Anxiety, Confusion, Mood changes, Depression, Hallucinations, Agitation, Suicidal Ideation, Homicidal Ideation, Delusions Past Family Social History Coded Allergies: No Known Allergies (Verified Allergy, Unknown, 07/10/17) Active Scripts Omeprazole (Omeprazole) 20 Mg Tab, 20 MG PO DAILY, #30 TAB 3 Refills Prov:Marce Comer MD 08/21/17 Amlodipine (Norvasc) 5 Mg Tab, 5 MG PO DAILY for Blood Pressure Management, #30 TAB 2 Refills Prov:Marce Comer MD 05/30/17 Reported Medications Magnesium Oxide (Magnesium Oxide) 400 Mg Tab, 400 MG PO DAILY for Nutritional Supplement, TAB 0 Refills 09/26/17 Discontinued Scripts Nitrofurantoin Macrocrystal (Nitrofurantoin Macrocrystal) 50 Mg Cap, 50 MG PO BID for Infection, #14 CAP 0 Refills Prov:Marce Comer MD 07/10/17 Current Medications Medications (Trade) Dose Ordered Sig/Arabella Route Start Time Stop Time Status Last Admin Dextrose 1,000 ml @ 100 mls/hr Q10H IV 09/26/17 22:00 10/02/17 09:54 (Romazicon Inj) 0.2 mg Q1M PRN IV PUSH 09/26/17 21:30 (Ativan) 1 mg Q4H PRN PO 09/26/17 21:30 09/29/17 15:04 (Ativan Inj) 1 mg Q4H PRN IV PUSH 09/26/17 21:30 09/29/17 05:26 (Ativan) 2 mg Q2H PRN PO 09/26/17 21:30 (Ativan Inj) 2 mg Q2H PRN IV PUSH 09/26/17 21:30 09/28/17 18:45 (Ativan Inj) 2 mg Q1H PRN IV PUSH 09/26/17 21:30 (Ativan Inj) 2 mg Q15M PRN IV PUSH 09/26/17 21:30 09/28/17 04:51 (NS Flush) 2 ml UNSCH PRN IV FLUSH 09/26/17 21:45 (NS Flush) 2 ml BID IV FLUSH 09/27/17 09:00 10/01/17 21:00 (Protonix) 40 mg DAILY PO 09/27/17 09:00 10/02/17 09:54 (Zofran Inj) 4 mg Q6H PRN IV PUSH 09/26/17 21:45 (Albuterol Neb) 2.5 mg Q2HR NEB PRN INH 09/26/17 21:45 (Heparin Inj) 5,000 units Q12H SQ 09/26/17 22:00 10/02/17 09:55 Miscellaneous Information 1 Q361D XX 09/26/17 21:45 (Chlorhexidine 2% Cloth) Taper DAILY@04 TOP 09/27/17 04:00 09/23/18 03:59 09/29/17 04:00 (Chlorhexidine 2% Cloth) 3 pack UNSCH PRN TOP 09/26/17 21:45 (Juliet-Colace) 1 tab BID PO 09/27/17 09:00 10/02/17 09:54 (Milk Of Magnesia Liq) 30 ml Q12H PRN PO 09/26/17 21:45 (Senokot) 17.2 mg Q12H PRN PO 09/26/17 21:45 (Dulcolax Supp) 10 mg DAILY PRN RECTAL 09/26/17 21:45 (Lactulose Liq) 30 ml DAILY PRN PO 09/26/17 21:45 (Mag-Ox) 400 mg DAILY PO 09/29/17 09:00 10/02/17 09:54 (Flomax) 0.4 mg DAILY PO 09/29/17 16:00 10/02/17 09:54 (Theragran) 1 tab DAILY PO 10/01/17 09:00 10/02/17 09:54 (Folate) 1 mg DAILY PO 10/01/17 09:00 10/02/17 09:54 (Vasotec Inj) 1.25 mg Q8H PRN IV PUSH 09/30/17 10:15 (Cardizem) 30 mg Q6H PO 10/01/17 16:00 10/02/17 02:52 (Trimox) 500 mg Q8HR PO 10/02/17 14:00 Magnesium Sulfate/ Dextrose 100 ml @ 100 mls/hr Q1H IV 10/02/17 13:00 10/02/17 14:59 (Tums Chew) 500 mg Q12HR CHEW 10/02/17 21:00 Family Psych History No family psychiatric history Social History Patient was born and raised in [place], his single, unemployed, homeless Patient's Strengths (min. 2) Verbal communication Physical Exam Vital Signs Vital Signs Date Time Temp Pulse Resp B/P (MAP) Pulse Ox O2 Delivery O2 Flow Rate FiO2 10/02/17 12:00 98.6 99 18 93/55 (68) 100 10/01/17 07:00 Nasal Cannula 4.00 Humidified I/O 10/02/17 10/02/17 10/03/17 08:00 16:00 00:00 Intake Total 840 ml Output Total 850 ml Balance -10 ml Lab Results Test 10/02/17 04:50 Blood Urea Nitrogen 8 MG/DL Creatinine 1.59 MG/DL Random Glucose 128 MG/DL Calcium Level 7.9 MG/DL Magnesium Level 1.4 MG/DL Sodium Level 140 MEQ/L Potassium Level 3.2 MEQ/L Chloride Level 107 MEQ/L Carbon Dioxide Level 26.0 MEQ/L Anion Gap 7 MEQ/L Estimat Glomerular Filtration Rate 52 ML/MIN Date/Time Source Procedure Growth Status 09/26/17 17:35 Blood Peripheral Aerobic Blood Culture - Final NO GROWTH IN 5 DAYS Complete 09/26/17 17:35 Blood Peripheral Anaerobic Blood Culture - Final NO GROWTH IN 5 DAYS Complete 09/26/17 19:00 Urine Catheterized Urine Urine Culture - Final Escherichia Coli Enterococcus Faecalis Complete Mental Status Examination Appearance: Appropriate Consciousness: Alert Orientation: Person, Place Motor Activity: Normal gait Speech: Unremarkable Language: Adequate Fund of Knowledge: Adequate Attention and Concentration: Adequate Memory: Impaired Mood: Appropriate Affect: Appropriate Thought Process & Associations: Intact Thought Content: Appropriate Hallucination Type: None Delusion Type: None Suicidal Ideation: No Suicidal Plan: No Suicidal Intention: No Homicidal Ideation: No Homicidal Plan: No Homicidal Intention: No Insight: Fair Judgment: Impulsive Assessment & Plan Problem List: (1) Adjustment disorder with depressed mood ICD Codes: F43.21 - Adjustment disorder with depressed mood Assessment & Plan: On psychiatric evaluation today patient is kind of irritable , oppositional, partially oriented in time and place. However, the patient is able to report good mood, denies depressive symptoms, denies hopelessness, denies helplessness, he denies suicidal and homicidal ideation, he denies visual and auditory hallucinations. Patient denies that he ever voices SI, "I love myself too much". Seems to be the recent suicidal ideation was in the context of delirium due to UTI and adjustment. At this moment the patient does not meet criteria for involuntary psychiatric admission. Continue medical treatment as needed. Can discontinue sitter. I will follow-up. Assessment & Plan Estimated LOS: Yonny Mayo MD Oct 02, 2017 14:12
--- NOTE | 2017-10-02 19:27 | HHI.PR ---
Subjective Remarks Follow-up for severe sepsis, UTI, acute kidney injury. Patient is currently doing well. He is confused. However he follows commands. No acute concerns. Denies any chest pain, shortness of breath, fever or chills. Objective Vitals Vital Signs Date Time Temp Pulse Resp B/P (MAP) Pulse Ox O2 Delivery O2 Flow Rate FiO2 10/02/17 17:54 99 Room Air 10/02/17 16:00 98.2 92 18 105/57 (73) 99 10/02/17 12:00 98.6 99 18 93/55 (68) 100 10/02/17 10:36 94 10/02/17 08:00 98.3 94 18 101/56 (71) 93 10/02/17 04:00 98.5 98 16 109/57 (74) 100 10/02/17 00:00 99.4 100 16 104/58 (73) 97 10/01/17 20:00 97.5 106 16 116/59 (78) 99 I/O 10/01/17 10/01/17 10/01/17 10/02/17 10/02/17 10/02/17 07:00 15:00 23:00 07:00 15:00 23:00 Intake Total 500 ml 840 ml 1000 ml 530 ml Output Total 700 ml 1350 ml 850 ml 800 ml Balance -200 ml -1350 ml -10 ml 1000 ml -270 ml Intake Oral 240 ml 840 ml 480 ml IV Total 260 ml 1000 ml 50 ml Output Urine Total 700 ml 1350 ml 850 ml 800 ml # Bowel Movements 1 1 2 1 Result Diagram: 10/01/17 0446 10/02/17 0450 Imaging Last Impressions Chest X-Ray 09/29/17 0600 Signed Impressions: Service Date/Time: Friday, September 29, 2017 05:26 - CONCLUSION: No acute cardiopulmonary disease demonstrated. Rodriguez Donald MD Head CT 09/26/17 1648 Signed Impressions: Service Date/Time: Tuesday, September 26, 2017 20:11 - CONCLUSION: 1. Stable senescent changes without acute intracranial abnormality. Sg López MD Abdomen/Pelvis CT 09/26/17 0000 Signed Impressions: Service Date/Time: Tuesday, September 26, 2017 22:06 - CONCLUSION: 1. Suboptimal examination performed without intravenous or oral contrast limiting the sensitivity of the exam. 2. Buchanan catheter in the bladder with wall thickening, air and questionable mass along the right side of the bladder wall. Cystoscopy may be helpful. 3. Right upper quadrant calcifications which appear to represent calcified gallstones. The gallbladder is poorly delineated in this region. 4. Small area of consolidation in the left lower lobe which could represent pneumonia. 5. Nonobstructive bowel gas pattern. Visualization is suboptimal due to lack of oral contrast, streak and motion artifact. Rayo Escudero MD Objective Remarks GENERAL: Alert, NAD. Oriented. Knows the name of the current president. SKIN: Warm and dry. HEAD: Normocephalic. EYES: No scleral icterus. No injection or drainage. NECK: Supple, trachea midline. No JVD or lymphadenopathy. CARDIOVASCULAR: Regular rate and rhythm without murmurs, gallops, or rubs. RESPIRATORY: Breath sounds equal bilaterally. No accessory muscle use. GASTROINTESTINAL: Abdomen soft, non-tender, nondistended. MUSCULOSKELETAL: No cyanosis, or edema. BACK: Nontender without obvious deformity. No CVA tenderness. Procedures None A/P Problem List: (1) Severe sepsis ICD Code: A41.9 - Sepsis, unspecified organism; R65.20 - Severe sepsis without septic shock Status: Acute (2) UTI (urinary tract infection) ICD Code: N39.0 - Urinary tract infection, site not specified Status: Acute (3) Acute urinary retention ICD Code: R33.8 - Other retention of urine Status: Acute (4) JACOBO (acute kidney injury) ICD Code: N17.9 - Acute kidney failure, unspecified (5) BPH (benign prostatic hyperplasia) ICD Code: N40.0 - Benign prostatic hyperplasia without lower urinary tract symptoms Assessment and Plan Mr. Chacon is a 77-year-old -[place] male with a history of hypertension, prostate cancer, urinary obstruction, multiple substance abuse who presented to the emergency department on 09/26/2017 via [facility] complaining of 2 week long dizziness and weakness. When patient presented to [facility] he was afebrile, tachycardic in the 120s. Blood pressure was 153/76. It has trended down to 118/71 in emergency department. He has acute kidney injury with creatinine of 6.9, BUN 64. Potassium is 5.2. Lactic acid 13.7. He is hypomagnesemic with magnesium of 0.5. WBC 9.3 He has been intermittently hypoglycemic with glucose in the 20s in the emergency department and received multiple amps of D50. Repeat glucose was 125 but then down trended again. Buchanan catheter was inserted. There is 1100cc of urine in the Buchanan bag, unclear how much of that was immediately on insertion. Patient was managed in the ICU until 09/28/2017. -Severe sepsis due to UTI -resolved -Urinary tract infection with E. coli and Enterococcus faecalis. -We will continue patient on amoxicillin 500 mg every 8 hours. -Patient is currently asymptomatic. Can be discharged home if proper placement is arranged. -Acute kidney injury -Urinary retention -BPH -Possible bladder mass -Creatinine 6.9 on admission. Currently 1.59. -Urology evaluated patient and recommended Buchanan catheter. Continue tamsulosin 0.4 mg daily. -Urology recommends outpatient evaluation for bladder mass. -Hypertension -Patient is currently on diltiazem 30 mg every 6 hours. May consider switching to amlodipine. -Polysubstance abuse -patient has been counseled. Full code. Heparin sq. Discharge plan: Medically cleared for discharge once a safe discharge plan is devised. Problem Qualifiers (1) UTI (urinary tract infection): Qualified Codes: N30.00 - Acute cystitis without hematuria Jordi Anguiano DO Oct 02, 2017 7:27 pm
[2017-10-02] MEDS ORDERED: AMOXICILLIN 875 MG TAB PO SCH (21:00)
[2017-10-02] MEDS: CALCIUM CARBONATE 500 MG CHEWABLE TAB CHEW SCH (21:38)
[2017-10-03] VITALS (11 sets, daily range): BP systolic 113–138; BP diastolic 59–66; PULSE 65–99; RESP 14–20; TEMP 98–98.9; O2SAT 98–100
[2017-10-03] MEDS: MAGNESIUM SULFATE 1 GM PREMIX 100 ML IV SCH (03:40)
[2017-10-03] MEDS: CHLORHEXIDINE GLUCONATE 2 % 1 PACK (2 CLOTHS) TOP SCH (04:00)
[2017-10-03] MEDS: DEXTROSE 5% IN WATE 1000ML INJ 1,000 ML IV SCH ×2 (04:10→10:54)
[2017-10-03] MEDS: DILTIAZEM HCL 30 MG TAB PO SCH ×4 (04:10→22:40)
[2017-10-03] MEDS: AMOXICILLIN (TRIHYDRATE) 500 MG CAP PO SCH ×3 (04:46→22:41)
[2017-10-03] MEDS: SODIUM CHLORIDE 0.9% FLUSH 10 ML FLUSH IV FLUSH SCH ×2 (09:00→20:41)
[2017-10-03] MEDS: CALCIUM CARBONATE 500 MG CHEWABLE TAB CHEW SCH ×2 (09:05→20:41)
[2017-10-03] MEDS: DOCUSATE SODIUM 50 MG/SENNA 8.6 MG TAB PO SCH ×2 (09:06→20:41)
[2017-10-03] MEDS: MAGNESIUM OXIDE 400 MG TAB PO SCH (09:06)
[2017-10-03] MEDS: HEPARIN SODIUM - SQ 10,000 UNITS/ML VIAL SQ SCH ×2 (09:06→22:41)
[2017-10-03] MEDS: FOLIC ACID 1 MG TAB PO SCH (09:06)
[2017-10-03] MEDS: MULTIVITAMIN TAB PO SCH (09:06)
[2017-10-03] MEDS: TAMSULOSIN HCL 0.4 MG CAP PO SCH (09:06)
[2017-10-03] MEDS: PANTOPRAZOLE SOD 40 MG DELAYED RELEASE TAB PO SCH (09:06)
--- NOTE | 2017-10-03 11:04 | HHI.NPPN ---
Subjective General Problems: Anemia Renal Failure: Chronic, Acute, Stage III History of Present Illness Patient is a 77-year-old male with past medical history of hypertension, prostate cancer, urinary retention with self I/O cath, cocaine abuse, GERD, prior TIA. Presented to ER complaining of 2 weeks of dizziness and weakness. History from patient is limited due to mental status. He was found to have acute kidney injury with creatinine of 6.9, BUN 64 on admission. His creatinine has slowly improved with a creatinine of 2.73 today. Creatinine was noted to be 1.0 in 04/23. Has a indwelling silva catheter that is draining clear yellow urine Additional Remarks Patient resting comfortably. No acute findings (Radha Campos) Review of Systems Respiratory Respiratory Remarks Denies any SOB (Radha Campos) Cardiovascular Cardiac Remarks Denies any CP (Radha Campos) Gastrointestinal GI Remarks Denies any abdominal pain (Radha Campos) Objective Data Data 10/03/17 10/04/17 19:00 07:00 Intake Total 1000 ml Output Total 800 ml Balance 200 ml IV Total 1000 ml Output Urine Total 800 ml Vital Signs Date Time Temp Pulse Resp B/P (MAP) Pulse Ox O2 Delivery O2 Flow Rate FiO2 10/03/17 08:06 98.9 84 16 117/62 (80) 98 10/03/17 08:00 90 10/03/17 07:15 98 Room Air 10/03/17 04:13 98.2 83 20 122/61 (81) 100 10/03/17 04:00 90 10/03/17 04:00 Room Air 10/03/17 00:00 92 10/03/17 00:00 Room Air 10/02/17 23:49 98.5 90 16 98/50 (66) 98 10/02/17 20:20 Room Air 10/02/17 20:08 97.9 91 16 112/55 (74) 99 10/02/17 20:00 93 10/02/17 17:54 99 Room Air 10/02/17 16:00 98.2 92 18 105/57 (73) 99 10/02/17 16:00 98 10/02/17 12:00 98.6 99 18 93/55 (68) 100 10/02/17 12:00 101 (Radha Campos) -: 10/01/17 0446 10/02/17 0450 Imaging Last Impressions Chest X-Ray 09/29/17 0600 Signed Impressions: Service Date/Time: Friday, September 29, 2017 05:26 - CONCLUSION: No acute cardiopulmonary disease demonstrated. Rodriguez Donald MD Head CT 09/26/17 1648 Signed Impressions: Service Date/Time: Tuesday, September 26, 2017 20:11 - CONCLUSION: 1. Stable senescent changes without acute intracranial abnormality. Sg López MD Abdomen/Pelvis CT 09/26/17 0000 Signed Impressions: Service Date/Time: Tuesday, September 26, 2017 22:06 - CONCLUSION: 1. Suboptimal examination performed without intravenous or oral contrast limiting the sensitivity of the exam. 2. Silva catheter in the bladder with wall thickening, air and questionable mass along the right side of the bladder wall. Cystoscopy may be helpful. 3. Right upper quadrant calcifications which appear to represent calcified gallstones. The gallbladder is poorly delineated in this region. 4. Small area of consolidation in the left lower lobe which could represent pneumonia. 5. Nonobstructive bowel gas pattern. Visualization is suboptimal due to lack of oral contrast, streak and motion artifact. Rayo Escudero MD (Radha Campos) Physical Exam General Appearance: No Acute Distress, Comfortable (Radha Campos) Throat Throat Exam: Oral Mucosa [place] & Moist (Radha Campos) Pulmonary Resp Exam: Clear Bilaterally, Breath Sounds Equal (Radha Campos) Cardiology CV Exam: Regular (Radha Campos) Gastrointestinal/Abdomen GI Exam: Soft, Non-Tender (Radha Campos) Genitourinary Exam: Flank Non-Tender Remarks indwelling silva (Radha Campos) Integumentary Skin Exam: Clear, Warm Skin Remarks left arm skin sloughing (Radha Campos) Extremeties Extremities Exam: No Edema (Radha Campos) Neurologic Neuro Exam: Awake Neuro Remarks confused (Radha Campos) Assessment/Plan Problem List: (1) JACOBO (acute kidney injury) ICD Codes: N17.9 - Acute kidney failure, unspecified Plan: Acute kidney injury with creatinine of 6.9, BUN 64 on admission most likely related to pre renal/ obstruction Baseline creatinine was noted to be 1.0 in 04/23 Creatinine stable Continues to have good UOP over past [address] of pelvis with kidneys of normal in size and shape. There is no mass, stone , or hydronephrosis. Possible mass in the Bladder. Plan Tolerating oral fluids will discontinue IVF Maintain indwelling silva catheter secondary to retention and to maintain I+O ( seen with , keep silva at time of eventual D/C) On flomax, outpatient cystoscopy per Avoid nephrotoxins. Encourage oral intake, follow the urine out put and BMP. (2) Increased ammonia level ICD Codes: R79.89 - Other specified abnormal findings of blood chemistry Status: Acute (3) Encephalopathy, toxic ICD Codes: G92 - Toxic encephalopathy; R65.20 - Severe sepsis without septic shock Status: Acute (4) Hypertensive emergency ICD Codes: I16.1 - Hypertensive emergency Status: Acute (5) UTI (urinary tract infection) ICD Codes: N39.0 - Urinary tract infection, site not specified Status: Acute (6) Acute urinary retention ICD Codes: R33.8 - Other retention of urine Status: Acute (7) Hypomagnesemia ICD Codes: E83.42 - Hypomagnesemia Status: Acute (8) Hypertension ICD Codes: I10 - Essential (primary) hypertension Status: Acute (Radha Campos) Problem List: (1) JACOBO (acute kidney injury) ICD Codes: N17.9 - Acute kidney failure, unspecified Plan: Acute kidney injury with creatinine of 6.9, BUN 64 on admission most likely related to pre renal/ obstruction Baseline creatinine was noted to be 1.0 in 04/23 Creatinine stable Continues to have good UOP over past [address] of pelvis with kidneys of normal in size and shape. There is no mass, stone , or hydronephrosis. Possible mass in the Bladder. Plan Tolerating oral fluids will discontinue IVF Maintain indwelling silva catheter secondary to retention and to maintain I+O ( seen with , keep silva at time of eventual D/C) On flomax, outpatient cystoscopy per Avoid nephrotoxins. Encourage oral intake, follow the urine out put and BMP. Patient seen and examined, agree with above. (2) Increased ammonia level ICD Codes: R79.89 - Other specified abnormal findings of blood chemistry Status: Acute (3) Encephalopathy, toxic ICD Codes: G92 - Toxic encephalopathy; R65.20 - Severe sepsis without septic shock Status: Acute (4) Hypertensive emergency ICD Codes: I16.1 - Hypertensive emergency Status: Acute (5) UTI (urinary tract infection) ICD Codes: N39.0 - Urinary tract infection, site not specified Status: Acute (6) Acute urinary retention ICD Codes: R33.8 - Other retention of urine Status: Acute (7) Hypomagnesemia ICD Codes: E83.42 - Hypomagnesemia Status: Acute (8) Hypertension ICD Codes: I10 - Essential (primary) hypertension Status: Acute (Brisa Elise MD) Problem Qualifiers (1) UTI (urinary tract infection): Qualified Codes: N30.00 - Acute cystitis without hematuria Radha Campos Oct 03, 2017 11:04 Brisa Elise MD Oct 03, 2017 19:06
--- NOTE | 2017-10-03 18:54 | HHI.PR ---
Subjective Remarks Follow-up for severe sepsis, UTI, acute kidney injury. Patient is currently doing well. Somewhat confused. Follows commands. No fever or chills. Objective Vitals Vital Signs Date Time Temp Pulse Resp B/P (MAP) Pulse Ox O2 Delivery O2 Flow Rate FiO2 10/03/17 17:56 90 10/03/17 17:00 98.0 65 19 138/59 (85) 10/03/17 16:03 98.3 83 18 113/66 (82) 99 10/03/17 12:06 98.3 95 16 118/64 (82) 98 10/03/17 08:06 98.9 84 16 117/62 (80) 98 10/03/17 08:00 90 10/03/17 07:15 98 Room Air 10/03/17 04:13 98.2 83 20 122/61 (81) 100 10/03/17 04:00 90 10/03/17 04:00 Room Air 10/03/17 00:00 92 10/03/17 00:00 Room Air 10/02/17 23:49 98.5 90 16 98/50 (66) 98 10/02/17 20:20 Room Air 10/02/17 20:08 97.9 91 16 112/55 (74) 99 10/02/17 20:00 93 I/O 10/02/17 10/02/17 10/02/17 10/03/17 10/03/17 10/03/17 07:00 15:00 23:00 07:00 15:00 23:00 Intake Total 840 ml 1000 ml 1628 ml 439 ml 1050 ml Output Total 850 ml 800 ml 1150 ml 800 ml 500 ml Balance -10 ml 1000 ml 828 ml -711 ml 250 ml -500 ml Intake Oral 840 ml 480 ml 340 ml IV Total 1000 ml 1148 ml 99 ml 1050 ml Output Urine Total 850 ml 800 ml 1150 ml 800 ml 500 ml # Bowel Movements 2 1 2 Result Diagram: 10/01/17 0446 10/02/17 2210 Objective Remarks GENERAL: Alert, NAD. Oriented. Knows the name of the current president. SKIN: Warm and dry. HEAD: Normocephalic. EYES: No scleral icterus. No injection or drainage. NECK: Supple, trachea midline. No JVD or lymphadenopathy. CARDIOVASCULAR: Regular rate and rhythm without murmurs, gallops, or rubs. RESPIRATORY: Breath sounds equal bilaterally. No accessory muscle use. GASTROINTESTINAL: Abdomen soft, non-tender, nondistended. MUSCULOSKELETAL: No cyanosis, or edema. BACK: Nontender without obvious deformity. No CVA tenderness. Procedures None A/P Problem List: (1) Severe sepsis ICD Code: A41.9 - Sepsis, unspecified organism; R65.20 - Severe sepsis without septic shock Status: Acute (2) UTI (urinary tract infection) ICD Code: N39.0 - Urinary tract infection, site not specified Status: Acute (3) Acute urinary retention ICD Code: R33.8 - Other retention of urine Status: Acute (4) JACOBO (acute kidney injury) ICD Code: N17.9 - Acute kidney failure, unspecified (5) BPH (benign prostatic hyperplasia) ICD Code: N40.0 - Benign prostatic hyperplasia without lower urinary tract symptoms Assessment and Plan Mr. Chacon is a 77-year-old -[place] Citizen male with a history of hypertension, prostate cancer, urinary obstruction, multiple substance abuse who presented to the emergency department on 09/26/2017 via [facility] complaining of 2 week long dizziness and weakness. When patient presented to [place] he was afebrile, tachycardic in the 120s. Blood pressure was 153/76. It has trended down to 118/71 in emergency department. He has acute kidney injury with creatinine of 6.9, BUN 64. Potassium is 5.2. Lactic acid 13.7. He is hypomagnesemic with magnesium of 0.5. WBC 9.3 He has been intermittently hypoglycemic with glucose in the 20s in the emergency department and received multiple amps of D50. Repeat glucose was 125 but then down trended again. Buchanan catheter was inserted. There is 1100cc of urine in the Buchanan bag, unclear how much of that was immediately on insertion. Patient was managed in the ICU until 09/28/2017. -Severe sepsis due to UTI -resolved -Urinary tract infection with E. coli and Enterococcus faecalis. -We will continue patient on amoxicillin 500 mg every 8 hours. -Patient is currently asymptomatic. Can be discharged home if proper placement is arranged. -Acute kidney injury -Urinary retention -BPH -Possible bladder mass -Creatinine 6.9 on admission. Currently 1.59. -Urology evaluated patient and recommended Buchanan catheter. Continue tamsulosin 0.4 mg daily. -Urology recommends outpatient evaluation for bladder mass. -Hypertension -Patient is currently on diltiazem 30 mg every 6 hours. May consider switching to amlodipine. -Polysubstance abuse -patient has been counseled. Full code. Heparin sq. No change in current plan. Once this day of discharge is arranged, patient can be discharged. Problem Qualifiers (1) UTI (urinary tract infection): Qualified Codes: N30.00 - Acute cystitis without hematuria Jordi Anguiano DO Oct 03, 2017 6:54 pm
[2017-10-04] VITALS (10 sets, daily range): BP systolic 98–127; BP diastolic 55–75; PULSE 82–120; RESP 14–19; TEMP 96.8–99; O2SAT 95–100
[2017-10-04] MEDS: CHLORHEXIDINE GLUCONATE 2 % 1 PACK (2 CLOTHS) TOP SCH (03:43)
[2017-10-04] MEDS: DILTIAZEM HCL 30 MG TAB PO SCH ×4 (04:50→21:33)
[2017-10-04] MEDS: AMOXICILLIN (TRIHYDRATE) 500 MG CAP PO SCH ×3 (05:09→21:33)
[2017-10-04] MEDS: CALCIUM CARBONATE 500 MG CHEWABLE TAB CHEW SCH ×2 (08:20→21:34)
[2017-10-04] MEDS: TAMSULOSIN HCL 0.4 MG CAP PO SCH (08:21)
[2017-10-04] MEDS: FOLIC ACID 1 MG TAB PO SCH (08:21)
[2017-10-04] MEDS: MAGNESIUM OXIDE 400 MG TAB PO SCH (08:21)
[2017-10-04] MEDS: PANTOPRAZOLE SOD 40 MG DELAYED RELEASE TAB PO SCH (08:21)
[2017-10-04] MEDS: MULTIVITAMIN TAB PO SCH (08:21)
[2017-10-04] MEDS: DOCUSATE SODIUM 50 MG/SENNA 8.6 MG TAB PO SCH ×2 (08:21→21:34)
[2017-10-04] MEDS: SODIUM CHLORIDE 0.9% FLUSH 10 ML FLUSH IV FLUSH SCH ×2 (08:21→21:34)
[2017-10-04] MEDS: HEPARIN SODIUM - SQ 10,000 UNITS/ML VIAL SQ SCH ×2 (08:24→21:33)
--- NOTE | 2017-10-04 10:01 | HHI.NPPN ---
Subjective General Problems: Anemia Renal Failure: Chronic, Acute, Stage III History of Present Illness Patient is a 77-year-old male with past medical history of hypertension, prostate cancer, urinary retention with self I/O cath, cocaine abuse, GERD, prior TIA. Presented to ER complaining of 2 weeks of dizziness and weakness. History from patient is limited due to mental status. He was found to have acute kidney injury with creatinine of 6.9, BUN 64 on admission. His creatinine has slowly improved with a creatinine of 2.73 today. Creatinine was noted to be 1.0 in 04/23. Has a indwelling silva catheter that is draining clear yellow urine Additional Remarks Patient resting comfortably. Remains somewhat confused. Does not report any problems. Indwelling silva catheter (Radha Campos) Review of Systems Respiratory Respiratory Remarks Denies any SOB (Radha Campos) Cardiovascular Cardiac Remarks Denies any CP (Radha Campos) Gastrointestinal GI Remarks Denies any abdominal pain (Radha Campos) Objective Data Data Vital Signs Date Time Temp Pulse Resp B/P (MAP) Pulse Ox O2 Delivery O2 Flow Rate FiO2 10/04/17 09:52 Room Air 10/04/17 08:07 98.1 89 17 120/57 (78) 99 10/04/17 05:09 96.8 90 14 125/72 (89) 95 10/04/17 04:00 89 10/04/17 00:46 98.6 93 14 98/60 (73) 96 10/04/17 00:00 95 10/03/17 20:15 98.7 99 14 122/66 (84) 99 10/03/17 20:05 Room Air 10/03/17 20:00 96 10/03/17 17:56 90 10/03/17 17:00 98.0 65 19 138/59 (85) 10/03/17 16:03 98.3 83 18 113/66 (82) 99 10/03/17 12:06 98.3 95 16 118/64 (82) 98 (Radha Campos) -: 10/01/17 0446 10/02/17 0450 Physical Exam General Appearance: No Acute Distress, Comfortable (Radha Campos) Throat Throat Exam: Oral Mucosa [place] & Moist (Radha Campos) Pulmonary Resp Exam: Clear Bilaterally, Breath Sounds Equal (Radha Campos) Cardiology CV Exam: Regular (Radha Campos) Gastrointestinal/Abdomen GI Exam: Soft, Non-Tender (Radha Campos) Genitourinary Exam: Flank Non-Tender Remarks indwelling silva (Radha Campos) Integumentary Skin Exam: Clear, Warm Skin Remarks left arm skin sloughing (Radha Campos) Extremeties Extremities Exam: No Edema (Radha Campos) Neurologic Neuro Exam: Awake Neuro Remarks confused (Radha Campos) Assessment/Plan Problem List: (1) JACOBO (acute kidney injury) ICD Codes: N17.9 - Acute kidney failure, unspecified Plan: Acute kidney injury with creatinine of 6.9, BUN 64 on admission most likely related to pre renal/ obstruction Baseline creatinine was noted to be 1.0 in 04/23 Creatinine stable Continues to have good UOP over past [address] of pelvis with kidneys of normal in size and shape. There is no mass, stone , or hydronephrosis. Possible mass in the Bladder. Plan Maintain indwelling silva catheter secondary to retention and to maintain I+O ( seen with , keep silva at time of eventual D/C) On flomax, outpatient cystoscopy per Avoid nephrotoxins. Continue to encourage oral intake, follow the urine out put and BMP. Discharge planning underway (2) Increased ammonia level ICD Codes: R79.89 - Other specified abnormal findings of blood chemistry Status: Acute (3) Encephalopathy, toxic ICD Codes: G92 - Toxic encephalopathy; R65.20 - Severe sepsis without septic shock Status: Acute (4) Hypertensive emergency ICD Codes: I16.1 - Hypertensive emergency Status: Acute (5) UTI (urinary tract infection) ICD Codes: N39.0 - Urinary tract infection, site not specified Status: Acute (6) Acute urinary retention ICD Codes: R33.8 - Other retention of urine Status: Acute (7) Hypomagnesemia ICD Codes: E83.42 - Hypomagnesemia Status: Acute (8) Hypertension ICD Codes: I10 - Essential (primary) hypertension Status: Acute (Radha Campos) Problem List: (1) JACOBO (acute kidney injury) ICD Codes: N17.9 - Acute kidney failure, unspecified Plan: Acute kidney injury with creatinine of 6.9, BUN 64 on admission most likely related to pre renal/ obstruction Baseline creatinine was noted to be 1.0 in 04/23 Creatinine stable Continues to have good UOP over past [address] of pelvis with kidneys of normal in size and shape. There is no mass, stone , or hydronephrosis. Possible mass in the Bladder. Plan Maintain indwelling silva catheter secondary to retention and to maintain I+O ( seen with , keep silva at time of eventual D/C) On flomax, outpatient cystoscopy per Avoid nephrotoxins. Continue to encourage oral intake, follow the urine out put and BMP. Discharge planning underway. Patient seen and examined, agree with above. Awaiting placement. (2) Increased ammonia level ICD Codes: R79.89 - Other specified abnormal findings of blood chemistry Status: Acute (3) Encephalopathy, toxic ICD Codes: G92 - Toxic encephalopathy; R65.20 - Severe sepsis without septic shock Status: Acute (4) Hypertensive emergency ICD Codes: I16.1 - Hypertensive emergency Status: Acute (5) UTI (urinary tract infection) ICD Codes: N39.0 - Urinary tract infection, site not specified Status: Acute (6) Acute urinary retention ICD Codes: R33.8 - Other retention of urine Status: Acute (7) Hypomagnesemia ICD Codes: E83.42 - Hypomagnesemia Status: Acute (8) Hypertension ICD Codes: I10 - Essential (primary) hypertension Status: Acute (Brisa Elise MD) Problem Qualifiers (1) UTI (urinary tract infection): Qualified Codes: N30.00 - Acute cystitis without hematuria Radha Campos Oct 04, 2017 10:01 Brisa Elise MD Oct 04, 2017 19:25
--- NOTE | 2017-10-04 15:18 | HHI.PR ---
Subjective Remarks Follow-up for severe sepsis, UTI, acute kidney injury. Patient is moving around the room. No acute concerns. No fever, chills. Objective Vitals Vital Signs Date Time Temp Pulse Resp B/P (MAP) Pulse Ox O2 Delivery O2 Flow Rate FiO2 10/04/17 12:22 98.0 82 17 110/55 (73) 100 10/04/17 09:52 Room Air 10/04/17 08:07 98.1 89 17 120/57 (78) 99 10/04/17 08:00 87 10/04/17 05:09 96.8 90 14 125/72 (89) 95 10/04/17 04:00 89 10/04/17 00:46 98.6 93 14 98/60 (73) 96 10/04/17 00:00 95 10/03/17 20:15 98.7 99 14 122/66 (84) 99 10/03/17 20:05 Room Air 10/03/17 20:00 96 10/03/17 17:56 90 10/03/17 17:00 98.0 65 19 138/59 (85) 10/03/17 16:03 98.3 83 18 113/66 (82) 99 I/O 10/03/17 10/03/17 10/03/17 10/04/17 10/04/17 10/04/17 07:00 15:00 23:00 07:00 15:00 23:00 Intake Total 439 ml 1050 ml 380 ml Output Total 1150 ml 800 ml 1000 ml 1500 ml Balance -711 ml 250 ml -620 ml -1500 ml Intake Oral 340 ml 380 ml IV Total 99 ml 1050 ml Output Urine Total 1150 ml 800 ml 1000 ml 1500 ml # Voids 4 # Bowel Movements 2 0 Result Diagram: 10/01/17 0446 10/02/17 0450 Objective Remarks GENERAL: Alert, NAD. Oriented. Knows the name of the current president. SKIN: Warm and dry. HEAD: Normocephalic. EYES: No scleral icterus. No injection or drainage. NECK: Supple, trachea midline. No JVD or lymphadenopathy. CARDIOVASCULAR: Regular rate and rhythm without murmurs, gallops, or rubs. RESPIRATORY: Breath sounds equal bilaterally. No accessory muscle use. GASTROINTESTINAL: Abdomen soft, non-tender, nondistended. MUSCULOSKELETAL: No cyanosis, or edema. BACK: Nontender without obvious deformity. No CVA tenderness. Procedures None A/P Problem List: (1) Severe sepsis ICD Code: A41.9 - Sepsis, unspecified organism; R65.20 - Severe sepsis without septic shock Status: Acute (2) UTI (urinary tract infection) ICD Code: N39.0 - Urinary tract infection, site not specified Status: Acute (3) Acute urinary retention ICD Code: R33.8 - Other retention of urine Status: Acute (4) JACOBO (acute kidney injury) ICD Code: N17.9 - Acute kidney failure, unspecified (5) BPH (benign prostatic hyperplasia) ICD Code: N40.0 - Benign prostatic hyperplasia without lower urinary tract symptoms Assessment and Plan Mr. Chacon is a 77-year-old -[place] male with a history of hypertension, prostate cancer, urinary obstruction, multiple substance abuse who presented to the emergency department on 09/26/2017 via [facility] complaining of 2 week long dizziness and weakness. When patient presented to [place] he was afebrile, tachycardic in the 120s. Blood pressure was 153/76. It has trended down to 118/71 in emergency department. He has acute kidney injury with creatinine of 6.9, BUN 64. Potassium is 5.2. Lactic acid 13.7. He is hypomagnesemic with magnesium of 0.5. WBC 9.3 He has been intermittently hypoglycemic with glucose in the 20s in the emergency department and received multiple amps of D50. Repeat glucose was 125 but then down trended again. Buchanan catheter was inserted. There is 1100cc of urine in the Buchanan bag, unclear how much of that was immediately on insertion. Patient was managed in the ICU until 09/28/2017. -Severe sepsis due to UTI -resolved -Urinary tract infection with E. coli and Enterococcus faecalis. -We will continue patient on amoxicillin 500 mg every 8 hours. -Patient is currently asymptomatic. Can be discharged home if proper placement is arranged. -Acute kidney injury -Urinary retention -BPH -Possible bladder mass -Creatinine 6.9 on admission. Currently 1.54 -Urology evaluated patient and recommended Buchanan catheter. Continue tamsulosin 0.4 mg daily. -Urology recommends outpatient evaluation for bladder mass. -Hypertension -Patient is currently on diltiazem 30 mg every 6 hours. May consider switching to amlodipine. -Polysubstance abuse -patient has been counseled. Full code. Heparin sq. No change in current plan. Once safe discharge disposition is arranged, patient can be discharged. Problem Qualifiers (1) UTI (urinary tract infection): Qualified Codes: N30.00 - Acute cystitis without hematuria Jordi Anguiano DO Oct 04, 2017 15:18
[2017-10-05] MEDS: CHLORHEXIDINE GLUCONATE 2 % 1 PACK (2 CLOTHS) TOP SCH (04:00)
[2017-10-05] MEDS: AMOXICILLIN (TRIHYDRATE) 500 MG CAP PO SCH ×2 (04:25→13:00)
[2017-10-05] MEDS: DILTIAZEM HCL 30 MG TAB PO SCH ×2 (04:25→08:50)
[2017-10-05 04:33] VITALS: BP 131/67; PULSE 92; RESP 16; TEMP 98.4; O2SAT 97
[2017-10-05 08:07] VITALS: BP 137/60; PULSE 95; RESP 18; TEMP 98.2; O2SAT 100
[2017-10-05] MEDS: FOLIC ACID 1 MG TAB PO SCH (08:50)
[2017-10-05] MEDS: DOCUSATE SODIUM 50 MG/SENNA 8.6 MG TAB PO SCH (08:50)
[2017-10-05] MEDS: PANTOPRAZOLE SOD 40 MG DELAYED RELEASE TAB PO SCH (08:50)
[2017-10-05] MEDS: CALCIUM CARBONATE 500 MG CHEWABLE TAB CHEW SCH (08:50)
[2017-10-05] MEDS: MAGNESIUM OXIDE 400 MG TAB PO SCH (08:50)
[2017-10-05] MEDS: TAMSULOSIN HCL 0.4 MG CAP PO SCH (08:50)
[2017-10-05] MEDS: MULTIVITAMIN TAB PO SCH (08:50)
[2017-10-05] MEDS: HEPARIN SODIUM - SQ 10,000 UNITS/ML VIAL SQ SCH (08:52)
[2017-10-05] MEDS: SODIUM CHLORIDE 0.9% FLUSH 10 ML FLUSH IV FLUSH SCH (08:52)
--- NOTE | 2017-10-05 09:59 | PD.WCN.NOT ---
Wound Consult Description: Reconsulted regarding wound management of L arm blisters per Dr Anguiano. Communicated with: Dr Anguiano Patient Recommendation: Every other day and PRN for dislodgement or saturation: 1. Cleanse left antecubital/forearm unroofed bullae with NS and gauze. 2. Pat dry with gauze. 3. Apply *SINGLE LAYER* Xeroform to open wound ONLY. 3. Cover with gauze and secure with rolled gauze and tape. *Please do not apply tape to patient skin. Additional Information: Patient seen today for reconsult of left forearm unroofed bullae (blisters). Left forearm/antecubital was cleansed with NS and gauze. Open partial thickness skin loss area measured ~5cm x 3cm x <0.1cm and is noted with dried yellow friable exudate and 100% pink moist tissue without active drainage and without odor. Periwound is noted with deflated bullae; dry; patient own skin covering areas that are not open. Single layer Xeroform was applied over open unroofed bullae and covered with gauze secured with rolled gauze and tape that may remain in place for 2 days unless saturated or dislodged. Please do not apply tape to patient skin. Change dressing every other day. Thank you for the reconsult. Romana Merrill [facility] Oct 05, 2017 09:59
--- NOTE | 2017-10-05 10:53 | HHI.NPPN ---
Subjective General Problems: Anemia Renal Failure: Chronic, Acute, Stage III History of Present Illness Patient is a 77-year-old male with past medical history of hypertension, prostate cancer, urinary retention with self I/O cath, cocaine abuse, GERD, prior TIA. Presented to ER complaining of 2 weeks of dizziness and weakness. History from patient is limited due to mental status. He was found to have acute kidney injury with creatinine of 6.9, BUN 64 on admission. His creatinine has slowly improved with a creatinine of 2.73 today. Creatinine was noted to be 1.0 in 04/23. Has a indwelling silva catheter that is draining clear yellow urine Additional Remarks Patient resting comfortably. Does not report any problems. Indwelling silva catheter (Radha Campos) Review of Systems Respiratory Respiratory Remarks Denies any SOB (Radha Campos) Cardiovascular Cardiac Remarks Denies any CP (Radha Campos) Gastrointestinal GI Remarks Denies any abdominal pain (Radha Campos) Objective Data Data Vital Signs Date Time Temp Pulse Resp B/P (MAP) Pulse Ox O2 Delivery O2 Flow Rate FiO2 10/05/17 08:07 98.2 95 18 137/60 (85) 100 10/05/17 07:07 Room Air 10/05/17 04:33 98.4 92 16 131/67 (88) 97 10/04/17 23:22 99.0 86 16 127/62 (83) 98 10/04/17 19:37 98.5 120 18 115/75 (88) 99 10/04/17 19:15 99 Room Air 10/04/17 16:17 98.2 89 19 122/65 (84) 99 10/04/17 12:22 98.0 82 17 110/55 (73) 100 (Radha Campos) -: 10/01/17 0446 10/02/17 0450 Physical Exam General Appearance: No Acute Distress, Comfortable (Radha Campos) Throat Throat Exam: Oral Mucosa Touchet & Moist (Radha Campos) Pulmonary Resp Exam: Clear Bilaterally, Breath Sounds Equal (Radha Campos) Cardiology CV Exam: Regular (Radha Campos) Gastrointestinal/Abdomen GI Exam: Soft, Non-Tender (Radha Campos) Genitourinary Exam: Flank Non-Tender Remarks indwelling silva (Radha Campos) Integumentary Skin Exam: Clear, Warm Skin Remarks left arm skin sloughing (Radha Campos) Extremeties Extremities Exam: No Edema (Radha Campos) Neurologic Neuro Exam: Awake Neuro Remarks confused (Radha Campos) Assessment/Plan Problem List: (1) JACOBO (acute kidney injury) ICD Codes: N17.9 - Acute kidney failure, unspecified Plan: Acute kidney injury with creatinine of 6.9, BUN 64 on admission most likely related to pre renal/ obstruction Baseline creatinine was noted to be 1.0 in 04/23 Creatinine stable Continues to have good UOP over past [address] of pelvis with kidneys of normal in size and shape. There is no mass, stone , or hydronephrosis. Possible mass in the Bladder. Plan Maintain indwelling silva catheter secondary to retention and to maintain I+O ( seen with , keep silva at time of eventual D/C) On flomax, outpatient cystoscopy per Avoid nephrotoxins. Continue to encourage oral intake, follow the urine out put and BMP. Awaiting placement (2) Increased ammonia level ICD Codes: R79.89 - Other specified abnormal findings of blood chemistry Status: Acute (3) Encephalopathy, toxic ICD Codes: G92 - Toxic encephalopathy; R65.20 - Severe sepsis without septic shock Status: Acute (4) Hypertensive emergency ICD Codes: I16.1 - Hypertensive emergency Status: Acute (5) UTI (urinary tract infection) ICD Codes: N39.0 - Urinary tract infection, site not specified Status: Acute (6) Acute urinary retention ICD Codes: R33.8 - Other retention of urine Status: Acute (7) Hypomagnesemia ICD Codes: E83.42 - Hypomagnesemia Status: Acute (8) Hypertension ICD Codes: I10 - Essential (primary) hypertension Status: Acute (Radha Campos) Problem List: (1) JACOBO (acute kidney injury) ICD Codes: N17.9 - Acute kidney failure, unspecified Plan: Acute kidney injury with creatinine of 6.9, BUN 64 on admission most likely related to pre renal/ obstruction Baseline creatinine was noted to be 1.0 in 04/23 Creatinine stable Continues to have good UOP over past [address] of pelvis with kidneys of normal in size and shape. There is no mass, stone , or hydronephrosis. Possible mass in the Bladder. Plan Maintain indwelling silva catheter secondary to retention and to maintain I+O ( seen with , keep silva at time of eventual D/C) On flomax, outpatient cystoscopy per Avoid nephrotoxins. Continue to encourage oral intake, follow the urine out put and BMP. Awaiting placement. Patient seen and examined, agree with above. (2) Increased ammonia level ICD Codes: R79.89 - Other specified abnormal findings of blood chemistry Status: Acute (3) Encephalopathy, toxic ICD Codes: G92 - Toxic encephalopathy; R65.20 - Severe sepsis without septic shock Status: Acute (4) Hypertensive emergency ICD Codes: I16.1 - Hypertensive emergency Status: Acute (5) UTI (urinary tract infection) ICD Codes: N39.0 - Urinary tract infection, site not specified Status: Acute (6) Acute urinary retention ICD Codes: R33.8 - Other retention of urine Status: Acute (7) Hypomagnesemia ICD Codes: E83.42 - Hypomagnesemia Status: Acute (8) Hypertension ICD Codes: I10 - Essential (primary) hypertension Status: Acute (Brisa Elise MD) Problem Qualifiers (1) UTI (urinary tract infection): Qualified Codes: N30.00 - Acute cystitis without hematuria Radha Campos Oct 05, 2017 10:53 Brisa Elise MD Oct 05, 2017 21:40
[2017-10-05 12:07] VITALS: BP 113/67; PULSE 88; RESP 18; TEMP 97.5; O2SAT 100
[2017-10-05] MEDS ORDERED: TAMS5CAP PO (12:43)
[2017-10-05] MEDS ORDERED: AMOX500C PO (12:43)
[2017-10-05] MEDS ORDERED: THERTAB15 PO (12:43)
--- NOTE | 2017-10-05 12:44 | HHI.DS ---
Discharge Summary Admission Date Sep 26, 2017 at 7:12 pm Discharge Date: Oct 05, 2017 Admitting Diagnosis Severe sepsis, urosepsis, lactic acidosis (1) Severe sepsis ICD Code: A41.9 - Sepsis, unspecified organism; R65.20 - Severe sepsis without septic shock Status: Acute (2) UTI (urinary tract infection) ICD Code: N39.0 - Urinary tract infection, site not specified Status: Acute (3) Acute urinary retention ICD Code: R33.8 - Other retention of urine Status: Acute (4) JACOBO (acute kidney injury) ICD Code: N17.9 - Acute kidney failure, unspecified (5) BPH (benign prostatic hyperplasia) ICD Code: N40.0 - Benign prostatic hyperplasia without lower urinary tract symptoms Procedures None Brief History - From Admission 77-year-old male with past medical history of hypertension, prostate cancer, urinary retention with self I/O cath, cocaine abuse, GERD, prior TIA, who presents to [facility] emergency department from home via [facility] complaining of 2 weeks of dizziness and weakness. History from patient is limited due to mental status. I attempted to contact family and was only able to get in touch his nephew Paul who states patient has been unable to ambulate, not eating very well for couple of weeks. He was not able to really elaborate any further. When patient presented to [facility] he was afebrile, tachycardic in the 120s. Blood pressure was 153/76. It has trended down to 118/71 in emergency department. He has acute kidney injury with creatinine of 6.9, BUN 64. Potassium is 5.2. Lactic acid 13.7. He is hypomagnesemic with magnesium of 0.5. WBC 9.3 He has been intermittently hypoglycemic with glucose in the 20s in the emergency department and received multiple amps of D50. Repeat glucose was 125 but then down trended again. Buchanan catheter was inserted. There is 1100 of urine in the Buchanan bag, unclear how much of that was immediately on insertion. No reported seizure. CBC/BMP: 10/01/17 0446 10/02/17 0450 Imaging Last Impressions Chest X-Ray 09/29/17 0600 Signed Impressions: Service Date/Time: Friday, September 29, 2017 05:26 - CONCLUSION: No acute cardiopulmonary disease demonstrated. Rodriguez Donald MD Head CT 09/26/17 1648 Signed Impressions: Service Date/Time: Tuesday, September 26, 2017 20:11 - CONCLUSION: 1. Stable senescent changes without acute intracranial abnormality. Sg López MD Abdomen/Pelvis CT 09/26/17 0000 Signed Impressions: Service Date/Time: Tuesday, September 26, 2017 22:06 - CONCLUSION: 1. Suboptimal examination performed without intravenous or oral contrast limiting the sensitivity of the exam. 2. Buchanan catheter in the bladder with wall thickening, air and questionable mass along the right side of the bladder wall. Cystoscopy may be helpful. 3. Right upper quadrant calcifications which appear to represent calcified gallstones. The gallbladder is poorly delineated in this region. 4. Small area of consolidation in the left lower lobe which could represent pneumonia. 5. Nonobstructive bowel gas pattern. Visualization is suboptimal due to lack of oral contrast, streak and motion artifact. Rayo Escudero MD PE at Discharge GENERAL: Alert, NAD. Oriented. Knows the name of the current president. SKIN: Warm and dry. HEAD: Normocephalic. EYES: No scleral icterus. No injection or drainage. NECK: Supple, trachea midline. No JVD or lymphadenopathy. CARDIOVASCULAR: Regular rate and rhythm without murmurs, gallops, or rubs. RESPIRATORY: Breath sounds equal bilaterally. No accessory muscle use. GASTROINTESTINAL: Abdomen soft, non-tender, nondistended. MUSCULOSKELETAL: No cyanosis, or edema. BACK: Nontender without obvious deformity. No CVA tenderness. Pt update on day of discharge Patient is doing well. More alert and coherent today. No fever, chills. Ambulating well. Hospital Course Mr. Chacon is a 77-year-old -[place] male with a history of hypertension, prostate cancer, urinary obstruction, multiple substance abuse who presented to the emergency department on 09/26/2017 via [facility] complaining of 2 week long dizziness and weakness. When patient presented to [facility] he was afebrile, tachycardic in the 120s. Blood pressure was 153/76. It has trended down to 118/71 in emergency department. He has acute kidney injury with creatinine of 6.9, BUN 64. Potassium is 5.2. Lactic acid 13.7. He is hypomagnesemic with magnesium of 0.5. WBC 9.3 He has been intermittently hypoglycemic with glucose in the 20s in the emergency department and received multiple amps of D50. Repeat glucose was 125 but then down trended again. Buchanan catheter was inserted. There is 1100cc of urine in the Buchanan bag, unclear how much of that was immediately on insertion. Patient was managed in the ICU until 09/28/2017. -Severe sepsis due to UTI -resolved -Urinary tract infection with E. coli and Enterococcus faecalis. -We will continue patient on amoxicillin 500 mg every 8 hours. -Will continue Amoxicillin for 7 days upon discharge. -Acute kidney injury -Urinary retention -BPH -Possible bladder mass -Creatinine 6.9 on admission. Currently 1.54 -Urology evaluated patient and recommended Buchanan catheter. Continue tamsulosin 0.4 mg daily. -Urology recommends outpatient evaluation for bladder mass. -Hypertension -Patient is currently on diltiazem 30 mg every 6 hours. May consider switching to amlodipine. -Polysubstance abuse -patient has been counseled. Wound care recommendations 10/05/2017 Every other day and PRN for dislodgement or saturation: 1. Cleanse left antecubital/forearm unroofed bullae with NS and gauze. 2. Pat dry with gauze. 3. Apply *SINGLE LAYER* Xeroform to open wound ONLY. 3. Cover with gauze and secure with rolled gauze and tape. *Please do not apply tape to patient skin. Pt Condition on Discharge: Good Discharge Disposition: Discharge to SNF Discharge Time: <= 30 minutes Discharge Instructions DIET: Follow Instructions for: Heart Healthy Diet Activities you can perform: Regular-No Restrictions Follow up Referrals: SNF/DETENTION/ New Medications: Amoxicillin (Amoxicillin) 500 Mg Cap 500 MG PO Q8HR for Infection, #21 CAP Multivitamin with Folic Acid (Thera Tablet) 400 Mcg Tablet 1 TAB PO DAILY for vitamin, #30 TAB 5 Refills Tamsulosin (Flomax) 0.4 Mg Cap 0.4 MG PO DAILY for BPH, #30 CAP Continued Medications: Amlodipine (Norvasc) 5 Mg Tab 5 MG PO DAILY for Blood Pressure Management, #30 TAB 2 Refills Magnesium Oxide (Magnesium Oxide) 400 Mg Tab 400 MG PO DAILY for Nutritional Supplement, TAB 0 Refills Omeprazole (Omeprazole) 20 Mg Tab 20 MG PO DAILY, #30 TAB 3 Refills Jordi Anguiano DO Oct 05, 2017 12:44
== END 2017-10-05 14:10 | DRG 871 ==
LOC: NEPC 16:31 → NEDA 19:12 → HIMN 23:55 → N04B 10-01 13:44
PROVIDERS: ADMIT Hospitalist; ATTEND Hospitalist
PROC: 0T9B70Z Drainage of Bladder with Drainage Device, Via Natural or Artificial Opening (ICD-10-PCS; principal; 2017-09-28)
DX: A41.9 Sepsis, unspecified organism (principal); G92 Toxic encephalopathy; N17.9 Acute kidney failure, unspecified; E72.20 Disorder of urea cycle metabolism, unspecified; E87.2 Acidosis; N30.00 Acute cystitis without hematuria; F10.239 Alcohol dependence with withdrawal, unspecified; E87.1 Hypo-osmolality and hyponatremia; I16.1 Hypertensive emergency; E86.0 Dehydration; N18.9 Chronic kidney disease, unspecified; F43.21 Adjustment disorder with depressed mood; I12.9 Hypertensive chronic kidney disease with stage 1 through stage 4 chronic kidney disease, or unspecified chronic kidney disease; K72.90 Hepatic failure, unspecified without coma; F14.10 Cocaine abuse, uncomplicated; F12.10 Cannabis abuse, uncomplicated; R33.8 Other retention of urine; E83.42 Hypomagnesemia; E87.5 Hyperkalemia; E87.6 Hypokalemia; K21.9 Gastro-esophageal reflux disease without esophagitis; M19.90 Unspecified osteoarthritis, unspecified site; N32.9 Bladder disorder, unspecified; E83.39 Other disorders of phosphorus metabolism; N40.1 Benign prostatic hyperplasia with lower urinary tract symptoms; R00.0 Tachycardia, unspecified; E16.2 Hypoglycemia, unspecified; R23.8 Other skin changes; R45.4 Irritability and anger; B96.20 Unspecified Escherichia coli [E. coli] as the cause of diseases classified elsewhere; B95.2 Enterococcus as the cause of diseases classified elsewhere; I49.3 Ventricular premature depolarization; Z86.73 Personal history of transient ischemic attack (TIA), and cerebral infarction without residual deficits; Z59.0 Homelessness; Z78.1 Physical restraint status; Z85.46 Personal history of malignant neoplasm of prostate; Z87.440 Personal history of urinary (tract) infections; Z90.79 Acquired absence of other genital organ(s); Z91.19 Patient's noncompliance with other medical treatment and regimen
CPT/HCPCS: 36600; 70450; 71045; 74176; 76937; 80048; 80053; 80202; 80307; 81001; 82140; 82550; 82552; 82805; 82948; 83605; 83690; 83735; 84100; 84132; 84155; 84443; 84484; 85025; 85610; 85730; 87040; 87077; 87086; 87186; 87641; 93005; 96361; 96365; 96368; 96375; 96376; J0610; J1644; J2060; J2543; J3370; J3411; J3475; J7030; J7040; J7050; J7070

== ENCOUNTER 2018-05-03 09:47 | Inpatient (IN) ==
[2018-05-03] MEDS ORDERED: Sod Chloride 0.9% Inj 1,000 ML IV.SIG ONE (10:25)
--- NOTE | 2018-05-03 10:49 | ED ---
HPI General Chief complaint: Weakness Stated complaint: Light headedness Time Seen by Provider: 05/03/18 10:08 Source: patient Mode of arrival: ambulatory Limitations: no limitations History of Present Illness HPI Narrative: 78-year-old male with history of hypertension presents to the emergency department for evaluation of weakness for 6 months. Patient also reports dizziness. He says that the dizziness occurs whenever he turns his head to the left or right, worse to the left. Says the dizziness resolves within 10 seconds of looking straight ahead. He denies fever, chills, chest pain, shortness of breath, abdominal pain, back pain, leg pain. He says that he was in this emergency department approximately 6 months ago and since then, he has felt weak. He says that he has had poor oral intake and is 'almost homeless'. 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) Prostate cancer (Chronic) TIA (transient ischemic attack) (Chronic) Urinary retention due to benign prostatic hyperplasia (Chronic) Surgical History Surgical History H/O cystoscopy (Acute) History of ERCP (Acute) History of esophagogastroduodenoscopy (EGD) (Acute) S/P TURP (Acute) Family History Family History Other Family history unknown Social History Social History Substance History: Past History Second Hand Smoke Exposure: No Smoking Status: Current every day smoker Tobacco Type: Cigarettes How Often Do You Have a Drink Containing Alcohol: 2 to 4 times a month Recent Travel in [facility] within the Last 8 Weeks: No Recent Out of Country Travel within the Last 8 Weeks: No Exam Narrative Exam Narrative: GENERAL: WD, Wn in NAD SKIN: Focused skin assessment warm/dry. HEAD: Atraumatic. Normocephalic. EYES: Pupils equal and round. No scleral icterus. No injection or drainage. ENT: No nasal bleeding or discharge. Mucous membranes pink and moist. NECK: Trachea midline. No JVD. No lyphadenopathy CARDIOVASCULAR: Regular rate and rhythm. No murmur appreciated. RESPIRATORY: No accessory muscle use. Clear to auscultation. Breath sounds equal bilaterally. GASTROINTESTINAL: Abdomen soft, non-tender, nondistended. Hepatic and splenic margins not palpable. MUSCULOSKELETAL: No obvious deformities. No clubbing. No cyanosis. No edema. NEUROLOGICAL: Awake and alert. No obvious cranial nerve deficits. Motor grossly within normal limits. Normal speech. PSYCHIATRIC: Appropriate mood and affect; insight and judgment normal. Procedures Intubation Time Out Performed: Yes Sedative: etomidate Mg Given: 20 Paralytic: succinylcholine Mg Given: 100 Laryngoscope: Cindy ET Tube Size: 7.5 Tube Placement Confirmation: visualized tube passing through cords Patient Tolerated Procedure: well Additional Comments: Patient became more, more altered, uncooperative, tachycardic, magnesium is low 0.4, suspect that metabolic encephalopathy decision to intubate the patient to secure the airway was made, patient will be admitted to ICU. Course Initial Documented Vital Signs Temperature 98.2 F 05/03/18 09:55 Pulse Rate 76 05/03/18 09:55 Respiratory Rate 20 05/03/18 09:55 Blood Pressure 202/117 H 05/03/18 09:55 Pulse Oximetry 97 05/03/18 09:55 Last Documented Vital Signs Temperature 97.7 F 05/04/18 04:00 Pulse Rate 79 05/04/18 07:39 Respiratory Rate 18 05/04/18 07:39 Blood Pressure 148/75 H 05/04/18 06:30 Pulse Oximetry 100 05/04/18 06:00 Critical Care Time Critical Care Time: Yes Total Critical Care Time: 35 Attestation: Aggregate critical care time was 35 minutes. Time to perform other separately billable procedures was not included in the critical care time. My time did not include minutes spent treating any other patients simultaneously or on activities that did not directly contribute to the patient's treatment. The services I provided to this patient were to treat and/or prevent clinically significant deterioration that could result in: significant disability or . I provided critical care services requiring my management, as noted below: Chart data review, documentation time, medication orders and management, vital sign assessments/reviewing monitor data, ordering and reviewing lab tests, ordering and interpreting/reviewing x-rays and diagnostic studies, care of the patient and discussion of the patient with the admitting physicians. Pt was reevaluated for stability, repeat EKGs performed, intubation performed due to change in patient status. Medical Decision Making MDM Narrative Medical decision making narrative: 78-year male presents to the emerge part for evaluation of dizziness and "feeling weak" for 6 months since his discharge in September. He says that the dizziness occurs whenever he turns his head and last for 10 seconds before resolving spontaneously. Patient denies any other symptoms such as fever, chills, chest pain, shortness of breath, abdominal pain , back pain, leg pain. He states that he is "almost homeless". He reports that he self caths to urinate at home. He denies any medication use to include blood pressure or blood thinners. @1239 A thud was heard and patient found on the ground actively seizing. Pt was reportedly self-cathing as he does this at home. He insisted and refused assistance according to nurse report. He is unresponsive at evaluation. 2mg ativan administered IM. No obvious urinary incontinence. He remains postictal upon reevaluation but does acknowledge my presence. Restraints placed as he was attempting to stand up after the fall and became increasingly agitated. Ordered repeat CT head and neck. I called CT and requested patient be urgently evaluated. Ordered further labs for evaluation. Plan to admit. Head CT is stable from the previous just 2 hours ago. Ordered potassium 20 mEq for administration. Ordered IV as I am unsure patient is able to take oral medication at this time. Labs are significant for INR 1.3. Patient is not on Coumadin. Calcium 7.4. Patient has a history of chronic hypocalcemia. Will monitor for correction. Kidney function stable. Magnesium 0.4. Ordered 2g IV. Hydralazine for elevated blood pressure. Patient has metabolic encephalopathy. Recommend patient be admitted for observation. I spoke with Dr. Jiang who agreed to the admission. After spoke with Dr. Jiang, blood sugar was repeated as patient did have a seizure. Blood sugar was rather low around 60. Administered D50 with thiamine. There is a questionable history of alcohol abuse after further review from records. A second straight cath demonstrated 900 cc urine from bladder. @1630, Patient became increasingly lethargic and altered during the stay in the ED today. Intubation performed for extreme agitation and concern for airway protection. Please see Dr. Dsouza's note regarding the intubation. I called long wall shear operator for admission. UDS, ABG pending as of admission. Medical Screen Exam Complete: Yes Emergency Medical Condition: Yes Medical Records Medical records reviewed: Yes I reviewed the patient's medical records. Patient presented to this emergency department in September 2017. Patient was eventually admitted to the ICU remained in the hospital approximately 20 days. Lab Data Lab results reviewed: Yes I reviewed the patient's lab results. Result diagrams: 05/04/18 05:08 05/04/18 06:30 Lab Results 05/03/18 05/03/18 05/03/18 Range/Units 00:00 11:55 11:55 WBC 4.8 (4.0-11.0) th/mm3 RBC 3.94 L (4.50-5.90) mil/mm3 Hgb 12.1 L (13.0-17.0) gm/dL Hct 36.5 L (39.0-51.0) % MCV 92.7 (80.0-100.0) fL MCH 30.7 (27.0-34.0) pg MCHC 33.1 (32.0-36.0) % RDW 14.0 (11.6-17.2) % Plt Count 202 (150-450) th/mm3 MPV 7.9 (7.0-11.0) fL Prelim Diff (Auto) Manual diff required Neut % (Auto) (16.0-70.0) % Lymph % (Auto) (9.0-44.0) % Hawkins % (Auto) (0.0-8.0) % Eos % (Auto) (0.0-4.0) % Baso % (Auto) (0.0-2.0) % Neut # (Auto) (1.8-7.7) th/mm3 Lymph # (Auto) (1.0-4.8) th/mm3 Hawkins # (Auto) (0.0-0.9) th/mm3 Eos # (Auto) (0.0-0.4) th/mm3 Baso # (Auto) (0.0-0.2) th/mm3 WBC Differential Manual diff final Seg Neuts % (Manual) 83 H (16-70) % Lymphocytes % (Manual) 9 (9-44) % Monocytes % (Manual) 8 (0-8) % Abs Neuts (Manual) 4.0 (1.8-7.7) th/mm3 Differential Comment . Platelet Estimate Normal (Normal) Platelet Morphology Normal (Normal) RBC Morphology Normal (Normal) PT 12.9 H (9.8-11.6) sec INR 1.3 Ratio APTT (24.3-30.1) sec Puncture Site Patient Temperature O2 Saturation (90-100) % ABG pH (7.380-7.420) ABG pCO2 (38-42) mmHg ABG pO2 (61-120) mmHg ABG HCO3 (22-26) mmol/L ABG O2 Content (12.0-20.0) Vol % ABG Base Excess (-2-2) mmol/L ABG Methemoglobin (0-2) % Eduardo Test Hemoglobin (12.0-16.0) G/DL Carboxyhemoglobin (0-4) % O2 Delivery Device Vent Setting Inspired O2 % Critical Value Sodium (136-145) meq/L Potassium (3.5-5.1) meq/L Chloride (98-107) meq/L Carbon Dioxide (21.0-32.0) meq/L Anion Gap (5-15) meq/L BUN (7-18) mg/dL Creatinine (0.60-1.30) mg/dL Estimated GFR (>89) mL/min POC Glucose (68-110) mg/dl Random Glucose (74-106) mg/dL Lactic Acid (0.4-2.0) mmol/L Calcium (8.5-10.1) mg/dL Prot Corrected Calcium (8.5-10.1) mg/dL Phosphorus (2.5-4.9) mg/dL Magnesium (1.5-2.5) mg/dL Total Bilirubin (0.2-1.0) mg/dL AST (15-37) U/L ALT (12-78) U/L Alkaline Phosphatase (45-117) U/L Ammonia (11-32) mcmol/L Total Creatine Kinase (39-308) U/L CK-MB (CK-2) (0.5-3.6) ng/mL CK-MB (CK-2) % (0.0-4.0) % Troponin I (0.02-0.05) ng/mL Total Protein (6.4-8.2) g/dL Albumin (3.4-5.0) g/dL Urine Color (Yellw/Straw) Urine Clarity (Clear) Urine pH (5.0-8.5) Ur Specific Irving (1.002-1.035) Urine Protein (Neg-Trace) mg/dL Urine Glucose (UA) (Negative) mg/dL Urine Ketones (Negative) mg/dL Urine Occult Blood (Negative) Urine Nitrate (Negative) Urine Bilirubin (Negative) Urine Urobilinogen (Less than 2) mg/dL Ur Leukocyte Esterase (Negative) Urine RBC (0-3) /hpf Urine WBC (0-5) /hpf Urine Bacteria (None) /hpf Urine Mucus (Occasional) /lpf Micro UA Comment Ur Microscopic Review Urine Culture Comments Nasal Screen MRSA (PCR) (Negative) Salicylates (2.8-20.0) mg/dL Urine Opiates Screen Neg (Neg) Acetaminophen (10.0-30.0) mcg/mL Ur Barbiturates Screen Neg (Neg) Ur Amphetamines Screen Neg (Neg) U Benzodiazepines Scrn Neg (Neg) Urine Cocaine Screen Pos H (Neg) U Cannabinoids Screen Neg (Neg) Serum Alcohol (0-5) mg/dL 05/03/18 05/03/18 05/03/18 Range/Units 11:55 11:55 11:55 WBC (4.0-11.0) th/mm3 RBC (4.50-5.90) mil/mm3 Hgb (13.0-17.0) gm/dL Hct (39.0-51.0) % MCV (80.0-100.0) fL MCH (27.0-34.0) pg MCHC (32.0-36.0) % RDW (11.6-17.2) % Plt Count (150-450) th/mm3 MPV (7.0-11.0) fL Prelim Diff (Auto) Neut % (Auto) (16.0-70.0) % Lymph % (Auto) (9.0-44.0) % Hawkins % (Auto) (0.0-8.0) % Eos % (Auto) (0.0-4.0) % Baso % (Auto) (0.0-2.0) % Neut # (Auto) (1.8-7.7) th/mm3 Lymph # (Auto) (1.0-4.8) th/mm3 Hawkins # (Auto) (0.0-0.9) th/mm3 Eos # (Auto) (0.0-0.4) th/mm3 Baso # (Auto) (0.0-0.2) th/mm3 WBC Differential Seg Neuts % (Manual) (16-70) % Lymphocytes % (Manual) (9-44) % Monocytes % (Manual) (0-8) % Abs Neuts (Manual) (1.8-7.7) th/mm3 Differential Comment Platelet Estimate (Normal) Platelet Morphology (Normal) RBC Morphology (Normal) PT (9.8-11.6) sec INR Ratio APTT 28.6 (24.3-30.1) sec Puncture Site Patient Temperature O2 Saturation (90-100) % ABG pH (7.380-7.420) ABG pCO2 (38-42) mmHg ABG pO2 (61-120) mmHg ABG HCO3 (22-26) mmol/L ABG O2 Content (12.0-20.0) Vol % ABG Base Excess (-2-2) mmol/L ABG Methemoglobin (0-2) % Eduardo Test Hemoglobin (12.0-16.0) G/DL Carboxyhemoglobin (0-4) % O2 Delivery Device Vent Setting Inspired O2 % Critical Value Sodium 142 (136-145) meq/L Potassium 3.1 L (3.5-5.1) meq/L Chloride 106 (98-107) meq/L Carbon Dioxide 29.7 (21.0-32.0) meq/L Anion Gap 6 (5-15) meq/L BUN 14 (7-18) mg/dL Creatinine 1.25 (0.60-1.30) mg/dL Estimated GFR 68 L (>89) mL/min POC Glucose (68-110) mg/dl Random Glucose 79 (74-106) mg/dL Lactic Acid (0.4-2.0) mmol/L Calcium 7.4 L* (8.5-10.1) mg/dL Prot Corrected Calcium 7.4 L* (8.5-10.1) mg/dL Phosphorus (2.5-4.9) mg/dL Magnesium (1.5-2.5) mg/dL Total Bilirubin 1.1 H (0.2-1.0) mg/dL AST 28 (15-37) U/L ALT 21 (12-78) U/L Alkaline Phosphatase 87 (45-117) U/L Ammonia (11-32) mcmol/L Total Creatine Kinase 154 (39-308) U/L CK-MB (CK-2) (0.5-3.6) ng/mL CK-MB (CK-2) % (0.0-4.0) % Troponin I (0.02-0.05) ng/mL Total Protein 7.3 (6.4-8.2) g/dL Albumin 3.1 L (3.4-5.0) g/dL Urine Color (Yellw/Straw) Urine Clarity (Clear) Urine pH (5.0-8.5) Ur Specific Irving (1.002-1.035) Urine Protein (Neg-Trace) mg/dL Urine Glucose (UA) (Negative) mg/dL Urine Ketones (Negative) mg/dL Urine Occult Blood (Negative) Urine Nitrate (Negative) Urine Bilirubin (Negative) Urine Urobilinogen (Less than 2) mg/dL Ur Leukocyte Esterase (Negative) Urine RBC (0-3) /hpf Urine WBC (0-5) /hpf Urine Bacteria (None) /hpf Urine Mucus (Occasional) /lpf Micro UA Comment Ur Microscopic Review Urine Culture Comments Nasal Screen MRSA (PCR) (Negative) Salicylates (2.8-20.0) mg/dL Urine Opiates Screen (Neg) Acetaminophen (10.0-30.0) mcg/mL Ur Barbiturates Screen (Neg) Ur Amphetamines Screen (Neg) U Benzodiazepines Scrn (Neg) Urine Cocaine Screen (Neg) U Cannabinoids Screen (Neg) Serum Alcohol (0-5) mg/dL 05/03/18 05/03/18 05/03/18 Range/Units 12:45 13:50 13:50 WBC (4.0-11.0) th/mm3 RBC (4.50-5.90) mil/mm3 Hgb (13.0-17.0) gm/dL Hct (39.0-51.0) % MCV (80.0-100.0) fL MCH (27.0-34.0) pg MCHC (32.0-36.0) % RDW (11.6-17.2) % Plt Count (150-450) th/mm3 MPV (7.0-11.0) fL Prelim Diff (Auto) Neut % (Auto) (16.0-70.0) % Lymph % (Auto) (9.0-44.0) % Hawkins % (Auto) (0.0-8.0) % Eos % (Auto) (0.0-4.0) % Baso % (Auto) (0.0-2.0) % Neut # (Auto) (1.8-7.7) th/mm3 Lymph # (Auto) (1.0-4.8) th/mm3 Hawkins # (Auto) (0.0-0.9) th/mm3 Eos # (Auto) (0.0-0.4) th/mm3 Baso # (Auto) (0.0-0.2) th/mm3 WBC Differential Seg Neuts % (Manual) (16-70) % Lymphocytes % (Manual) (9-44) % Monocytes % (Manual) (0-8) % Abs Neuts (Manual) (1.8-7.7) th/mm3 Differential Comment Platelet Estimate (Normal) Platelet Morphology (Normal) RBC Morphology (Normal) PT (9.8-11.6) sec INR Ratio APTT (24.3-30.1) sec Puncture Site Patient Temperature O2 Saturation (90-100) % ABG pH (7.380-7.420) ABG pCO2 (38-42) mmHg ABG pO2 (61-120) mmHg ABG HCO3 (22-26) mmol/L ABG O2 Content (12.0-20.0) Vol % ABG Base Excess (-2-2) mmol/L ABG Methemoglobin (0-2) % Eduardo Test Hemoglobin (12.0-16.0) G/DL Carboxyhemoglobin (0-4) % O2 Delivery Device Vent Setting Inspired O2 % Critical Value Sodium (136-145) meq/L Potassium (3.5-5.1) meq/L Chloride (98-107) meq/L Carbon Dioxide (21.0-32.0) meq/L Anion Gap (5-15) meq/L BUN (7-18) mg/dL Creatinine (0.60-1.30) mg/dL Estimated GFR (>89) mL/min POC Glucose (68-110) mg/dl Random Glucose (74-106) mg/dL Lactic Acid (0.4-2.0) mmol/L Calcium (8.5-10.1) mg/dL Prot Corrected Calcium (8.5-10.1) mg/dL Phosphorus (2.5-4.9) mg/dL Magnesium 0.4 L (1.5-2.5) mg/dL Total Bilirubin (0.2-1.0) mg/dL AST (15-37) U/L ALT (12-78) U/L Alkaline Phosphatase (45-117) U/L Ammonia 63 H (11-32) mcmol/L Total Creatine Kinase (39-308) U/L CK-MB (CK-2) (0.5-3.6) ng/mL CK-MB (CK-2) % (0.0-4.0) % Troponin I (0.02-0.05) ng/mL Total Protein (6.4-8.2) g/dL Albumin (3.4-5.0) g/dL Urine Color Yellow (Yellw/Straw) Urine Clarity Clear (Clear) Urine pH 7.0 (5.0-8.5) Ur Specific Irving 1.006 (1.002-1.035) Urine Protein Negative (Neg-Trace) mg/dL Urine Glucose (UA) Negative (Negative) mg/dL Urine Ketones Negative (Negative) mg/dL Urine Occult Blood Small H (Negative) Urine Nitrate Negative (Negative) Urine Bilirubin Negative (Negative) Urine Urobilinogen Less than 2 (Less than 2) mg/dL Ur Leukocyte Esterase Small H (Negative) Urine RBC 1 (0-3) /hpf Urine WBC 31 H (0-5) /hpf Urine Bacteria Occasional H (None) /hpf Urine Mucus Few H (Occasional) /lpf Micro UA Comment Cath-culture ind Ur Microscopic Review Not Reportable Urine Culture Comments Cath-cult indicated Nasal Screen MRSA (PCR) (Negative) Salicylates (2.8-20.0) mg/dL Urine Opiates Screen (Neg) Acetaminophen (10.0-30.0) mcg/mL Ur Barbiturates Screen (Neg) Ur Amphetamines Screen (Neg) U Benzodiazepines Scrn (Neg) Urine Cocaine Screen (Neg) U Cannabinoids Screen (Neg) Serum Alcohol (0-5) mg/dL 05/03/18 05/03/18 05/03/18 Range/Units 15:03 15:56 17:40 WBC (4.0-11.0) th/mm3 RBC (4.50-5.90) mil/mm3 Hgb (13.0-17.0) gm/dL Hct (39.0-51.0) % MCV (80.0-100.0) fL MCH (27.0-34.0) pg MCHC (32.0-36.0) % RDW (11.6-17.2) % Plt Count (150-450) th/mm3 MPV (7.0-11.0) fL Prelim Diff (Auto) Neut % (Auto) (16.0-70.0) % Lymph % (Auto) (9.0-44.0) % Hawkins % (Auto) (0.0-8.0) % Eos % (Auto) (0.0-4.0) % Baso % (Auto) (0.0-2.0) % Neut # (Auto) (1.8-7.7) th/mm3 Lymph # (Auto) (1.0-4.8) th/mm3 Hawkins # (Auto) (0.0-0.9) th/mm3 Eos # (Auto) (0.0-0.4) th/mm3 Baso # (Auto) (0.0-0.2) th/mm3 WBC Differential Seg Neuts % (Manual) (16-70) % Lymphocytes % (Manual) (9-44) % Monocytes % (Manual) (0-8) % Abs Neuts (Manual) (1.8-7.7) th/mm3 Differential Comment Platelet Estimate (Normal) Platelet Morphology (Normal) RBC Morphology (Normal) PT (9.8-11.6) sec INR Ratio APTT (24.3-30.1) sec Puncture Site Patient Temperature O2 Saturation (90-100) % ABG pH (7.380-7.420) ABG pCO2 (38-42) mmHg ABG pO2 (61-120) mmHg ABG HCO3 (22-26) mmol/L ABG O2 Content (12.0-20.0) Vol % ABG Base Excess (-2-2) mmol/L ABG Methemoglobin (0-2) % Eduardo Test Hemoglobin (12.0-16.0) G/DL Carboxyhemoglobin (0-4) % O2 Delivery Device Vent Setting Inspired O2 % Critical Value Sodium (136-145) meq/L Potassium (3.5-5.1) meq/L Chloride (98-107) meq/L Carbon Dioxide (21.0-32.0) meq/L Anion Gap (5-15) meq/L BUN (7-18) mg/dL Creatinine (0.60-1.30) mg/dL Estimated GFR (>89) mL/min POC Glucose 60 L 125 H 116 H (68-110) mg/dl Random Glucose (74-106) mg/dL Lactic Acid (0.4-2.0) mmol/L Calcium (8.5-10.1) mg/dL Prot Corrected Calcium (8.5-10.1) mg/dL Phosphorus (2.5-4.9) mg/dL Magnesium (1.5-2.5) mg/dL Total Bilirubin (0.2-1.0) mg/dL AST (15-37) U/L ALT (12-78) U/L Alkaline Phosphatase (45-117) U/L Ammonia (11-32) mcmol/L Total Creatine Kinase (39-308) U/L CK-MB (CK-2) (0.5-3.6) ng/mL CK-MB (CK-2) % (0.0-4.0) % Troponin I (0.02-0.05) ng/mL Total Protein (6.4-8.2) g/dL Albumin (3.4-5.0) g/dL Urine Color (Yellw/Straw) Urine Clarity (Clear) Urine pH (5.0-8.5) Ur Specific Irving (1.002-1.035) Urine Protein (Neg-Trace) mg/dL Urine Glucose (UA) (Negative) mg/dL Urine Ketones (Negative) mg/dL Urine Occult Blood (Negative) Urine Nitrate (Negative) Urine Bilirubin (Negative) Urine Urobilinogen (Less than 2) mg/dL Ur Leukocyte Esterase (Negative) Urine RBC (0-3) /hpf Urine WBC (0-5) /hpf Urine Bacteria (None) /hpf Urine Mucus (Occasional) /lpf Micro UA Comment Ur Microscopic Review Urine Culture Comments Nasal Screen MRSA (PCR) (Negative) Salicylates (2.8-20.0) mg/dL Urine Opiates Screen (Neg) Acetaminophen (10.0-30.0) mcg/mL Ur Barbiturates Screen (Neg) Ur Amphetamines Screen (Neg) U Benzodiazepines Scrn (Neg) Urine Cocaine Screen (Neg) U Cannabinoids Screen (Neg) Serum Alcohol (0-5) mg/dL 05/03/18 05/03/18 05/03/18 Range/Units 17:41 17:41 17:41 WBC (4.0-11.0) th/mm3 RBC (4.50-5.90) mil/mm3 Hgb (13.0-17.0) gm/dL Hct (39.0-51.0) % MCV (80.0-100.0) fL MCH (27.0-34.0) pg MCHC (32.0-36.0) % RDW (11.6-17.2) % Plt Count (150-450) th/mm3 MPV (7.0-11.0) fL Prelim Diff (Auto) Neut % (Auto) (16.0-70.0) % Lymph % (Auto) (9.0-44.0) % Hawkins % (Auto) (0.0-8.0) % Eos % (Auto) (0.0-4.0) % Baso % (Auto) (0.0-2.0) % Neut # (Auto) (1.8-7.7) th/mm3 Lymph # (Auto) (1.0-4.8) th/mm3 Hawkins # (Auto) (0.0-0.9) th/mm3 Eos # (Auto) (0.0-0.4) th/mm3 Baso # (Auto) (0.0-0.2) th/mm3 WBC Differential Seg Neuts % (Manual) (16-70) % Lymphocytes % (Manual) (9-44) % Monocytes % (Manual) (0-8) % Abs Neuts (Manual) (1.8-7.7) th/mm3 Differential Comment Platelet Estimate (Normal) Platelet Morphology (Normal) RBC Morphology (Normal) PT (9.8-11.6) sec INR Ratio APTT (24.3-30.1) sec Puncture Site Patient Temperature O2 Saturation (90-100) % ABG pH (7.380-7.420) ABG pCO2 (38-42) mmHg ABG pO2 (61-120) mmHg ABG HCO3 (22-26) mmol/L ABG O2 Content (12.0-20.0) Vol % ABG Base Excess (-2-2) mmol/L ABG Methemoglobin (0-2) % Eduardo Test Hemoglobin (12.0-16.0) G/DL Carboxyhemoglobin (0-4) % O2 Delivery Device Vent Setting Inspired O2 % Critical Value Sodium (136-145) meq/L Potassium (3.5-5.1) meq/L Chloride (98-107) meq/L Carbon Dioxide (21.0-32.0) meq/L Anion Gap (5-15) meq/L BUN (7-18) mg/dL Creatinine (0.60-1.30) mg/dL Estimated GFR (>89) mL/min POC Glucose (68-110) mg/dl Random Glucose (74-106) mg/dL Lactic Acid (0.4-2.0) mmol/L Calcium (8.5-10.1) mg/dL Prot Corrected Calcium (8.5-10.1) mg/dL Phosphorus 0.4 L (2.5-4.9) mg/dL Magnesium (1.5-2.5) mg/dL Total Bilirubin (0.2-1.0) mg/dL AST (15-37) U/L ALT (12-78) U/L Alkaline Phosphatase (45-117) U/L Ammonia (11-32) mcmol/L Total Creatine Kinase (39-308) U/L CK-MB (CK-2) (0.5-3.6) ng/mL CK-MB (CK-2) % (0.0-4.0) % Troponin I (0.02-0.05) ng/mL Total Protein (6.4-8.2) g/dL Albumin (3.4-5.0) g/dL Urine Color (Yellw/Straw) Urine Clarity (Clear) Urine pH (5.0-8.5) Ur Specific Irving (1.002-1.035) Urine Protein (Neg-Trace) mg/dL Urine Glucose (UA) (Negative) mg/dL Urine Ketones (Negative) mg/dL Urine Occult Blood (Negative) Urine Nitrate (Negative) Urine Bilirubin (Negative) Urine Urobilinogen (Less than 2) mg/dL Ur Leukocyte Esterase (Negative) Urine RBC (0-3) /hpf Urine WBC (0-5) /hpf Urine Bacteria (None) /hpf Urine Mucus (Occasional) /lpf Micro UA Comment Ur Microscopic Review Urine Culture Comments Nasal Screen MRSA (PCR) (Negative) Salicylates Less than 1.7 L (2.8-20.0) mg/dL Urine Opiates Screen (Neg) Acetaminophen Less than 2.0 L (10.0-30.0) mcg/mL Ur Barbiturates Screen (Neg) Ur Amphetamines Screen (Neg) U Benzodiazepines Scrn (Neg) Urine Cocaine Screen (Neg) U Cannabinoids Screen (Neg) Serum Alcohol Less than 3 (0-5) mg/dL 05/03/18 05/03/18 05/03/18 Range/Units 17:41 17:54 19:30 WBC (4.0-11.0) th/mm3 RBC (4.50-5.90) mil/mm3 Hgb (13.0-17.0) gm/dL Hct (39.0-51.0) % MCV (80.0-100.0) fL MCH (27.0-34.0) pg MCHC (32.0-36.0) % RDW (11.6-17.2) % Plt Count (150-450) th/mm3 MPV (7.0-11.0) fL Prelim Diff (Auto) Neut % (Auto) (16.0-70.0) % Lymph % (Auto) (9.0-44.0) % Hawkins % (Auto) (0.0-8.0) % Eos % (Auto) (0.0-4.0) % Baso % (Auto) (0.0-2.0) % Neut # (Auto) (1.8-7.7) th/mm3 Lymph # (Auto) (1.0-4.8) th/mm3 Hawkins # (Auto) (0.0-0.9) th/mm3 Eos # (Auto) (0.0-0.4) th/mm3 Baso # (Auto) (0.0-0.2) th/mm3 WBC Differential Seg Neuts % (Manual) (16-70) % Lymphocytes % (Manual) (9-44) % Monocytes % (Manual) (0-8) % Abs Neuts (Manual) (1.8-7.7) th/mm3 Differential Comment Platelet Estimate (Normal) Platelet Morphology (Normal) RBC Morphology (Normal) PT (9.8-11.6) sec INR Ratio APTT (24.3-30.1) sec Puncture Site Left radial Patient Temperature 98.6 O2 Saturation 97 (90-100) % ABG pH 7.47 H (7.380-7.420) ABG pCO2 29 L (38-42) mmHg ABG pO2 155 H (61-120) mmHg ABG HCO3 21 L (22-26) mmol/L ABG O2 Content 14.7 (12.0-20.0) Vol % ABG Base Excess -2.2 L (-2-2) mmol/L ABG Methemoglobin 0.7 (0-2) % Eduardo Test + Hemoglobin 10.5 L (12.0-16.0) G/DL Carboxyhemoglobin 1.2 (0-4) % O2 Delivery Device Ventilator Vent Setting See comments Inspired O2 40 % Critical Value No Sodium (136-145) meq/L Potassium (3.5-5.1) meq/L Chloride (98-107) meq/L Carbon Dioxide (21.0-32.0) meq/L Anion Gap (5-15) meq/L BUN (7-18) mg/dL Creatinine (0.60-1.30) mg/dL Estimated GFR (>89) mL/min POC Glucose (68-110) mg/dl Random Glucose (74-106) mg/dL Lactic Acid (0.4-2.0) mmol/L Calcium (8.5-10.1) mg/dL Prot Corrected Calcium (8.5-10.1) mg/dL Phosphorus (2.5-4.9) mg/dL Magnesium (1.5-2.5) mg/dL Total Bilirubin (0.2-1.0) mg/dL AST (15-37) U/L ALT (12-78) U/L Alkaline Phosphatase (45-117) U/L Ammonia (11-32) mcmol/L Total Creatine Kinase 346 H (39-308) U/L CK-MB (CK-2) 3.9 H (0.5-3.6) ng/mL CK-MB (CK-2) % 1.1 (0.0-4.0) % Troponin I (0.02-0.05) ng/mL Total Protein (6.4-8.2) g/dL Albumin (3.4-5.0) g/dL Urine Color (Yellw/Straw) Urine Clarity (Clear) Urine pH (5.0-8.5) Ur Specific Irving (1.002-1.035) Urine Protein (Neg-Trace) mg/dL Urine Glucose (UA) (Negative) mg/dL Urine Ketones (Negative) mg/dL Urine Occult Blood (Negative) Urine Nitrate (Negative) Urine Bilirubin (Negative) Urine Urobilinogen (Less than 2) mg/dL Ur Leukocyte Esterase (Negative) Urine RBC (0-3) /hpf Urine WBC (0-5) /hpf Urine Bacteria (None) /hpf Urine Mucus (Occasional) /lpf Micro UA Comment Ur Microscopic Review Urine Culture Comments Nasal Screen MRSA (PCR) Not detected (Negative) Salicylates (2.8-20.0) mg/dL Urine Opiates Screen (Neg) Acetaminophen (10.0-30.0) mcg/mL Ur Barbiturates Screen (Neg) Ur Amphetamines Screen (Neg) U Benzodiazepines Scrn (Neg) Urine Cocaine Screen (Neg) U Cannabinoids Screen (Neg) Serum Alcohol (0-5) mg/dL 05/03/18 05/04/18 05/04/18 Range/Units 20:30 00:22 00:47 WBC (4.0-11.0) th/mm3 RBC (4.50-5.90) mil/mm3 Hgb (13.0-17.0) gm/dL Hct (39.0-51.0) % MCV (80.0-100.0) fL MCH (27.0-34.0) pg MCHC (32.0-36.0) % RDW (11.6-17.2) % Plt Count (150-450) th/mm3 MPV (7.0-11.0) fL Prelim Diff (Auto) Neut % (Auto) (16.0-70.0) % Lymph % (Auto) (9.0-44.0) % Hawkins % (Auto) (0.0-8.0) % Eos % (Auto) (0.0-4.0) % Baso % (Auto) (0.0-2.0) % Neut # (Auto) (1.8-7.7) th/mm3 Lymph # (Auto) (1.0-4.8) th/mm3 Hawkins # (Auto) (0.0-0.9) th/mm3 Eos # (Auto) (0.0-0.4) th/mm3 Baso # (Auto) (0.0-0.2) th/mm3 WBC Differential Seg Neuts % (Manual) (16-70) % Lymphocytes % (Manual) (9-44) % Monocytes % (Manual) (0-8) % Abs Neuts (Manual) (1.8-7.7) th/mm3 Differential Comment Platelet Estimate (Normal) Platelet Morphology (Normal) RBC Morphology (Normal) PT (9.8-11.6) sec INR Ratio APTT (24.3-30.1) sec Puncture Site Patient Temperature O2 Saturation (90-100) % ABG pH (7.380-7.420) ABG pCO2 (38-42) mmHg ABG pO2 (61-120) mmHg ABG HCO3 (22-26) mmol/L ABG O2 Content (12.0-20.0) Vol % ABG Base Excess (-2-2) mmol/L ABG Methemoglobin (0-2) % Eduardo Test Hemoglobin (12.0-16.0) G/DL Carboxyhemoglobin (0-4) % O2 Delivery Device Vent Setting Inspired O2 % Critical Value Sodium 145 (136-145) meq/L Potassium 2.7 L* (3.5-5.1) meq/L Chloride 111 H (98-107) meq/L Carbon Dioxide 25.1 (21.0-32.0) meq/L Anion Gap 9 (5-15) meq/L BUN 11 (7-18) mg/dL Creatinine 1.03 (0.60-1.30) mg/dL Estimated GFR 85 L (>89) mL/min POC Glucose 51 L 87 (68-110) mg/dl Random Glucose 86 (74-106) mg/dL Lactic Acid (0.4-2.0) mmol/L Calcium 6.8 L* (8.5-10.1) mg/dL Prot Corrected Calcium 7.0 L* (8.5-10.1) mg/dL Phosphorus (2.5-4.9) mg/dL Magnesium 1.2 L D (1.5-2.5) mg/dL Total Bilirubin (0.2-1.0) mg/dL AST (15-37) U/L ALT (12-78) U/L Alkaline Phosphatase (45-117) U/L Ammonia (11-32) mcmol/L Total Creatine Kinase (39-308) U/L CK-MB (CK-2) (0.5-3.6) ng/mL CK-MB (CK-2) % (0.0-4.0) % Troponin I 0.07 H (0.02-0.05) ng/mL Total Protein 6.7 D (6.4-8.2) g/dL Albumin (3.4-5.0) g/dL Urine Color (Yellw/Straw) Urine Clarity (Clear) Urine pH (5.0-8.5) Ur Specific Irving (1.002-1.035) Urine Protein (Neg-Trace) mg/dL Urine Glucose (UA) (Negative) mg/dL Urine Ketones (Negative) mg/dL Urine Occult Blood (Negative) Urine Nitrate (Negative) Urine Bilirubin (Negative) Urine Urobilinogen (Less than 2) mg/dL Ur Leukocyte Esterase (Negative) Urine RBC (0-3) /hpf Urine WBC (0-5) /hpf Urine Bacteria (None) /hpf Urine Mucus (Occasional) /lpf Micro UA Comment Ur Microscopic Review Urine Culture Comments Nasal Screen MRSA (PCR) (Negative) Salicylates (2.8-20.0) mg/dL Urine Opiates Screen (Neg) Acetaminophen (10.0-30.0) mcg/mL Ur Barbiturates Screen (Neg) Ur Amphetamines Screen (Neg) U Benzodiazepines Scrn (Neg) Urine Cocaine Screen (Neg) U Cannabinoids Screen (Neg) Serum Alcohol (0-5) mg/dL 09/05/04/18 05/04/18 Range/Units 05:08 05:08 05:08 WBC 6.3 (4.0-11.0) th/mm3 RBC 3.38 L (4.50-5.90) mil/mm3 Hgb 10.5 L (13.0-17.0) gm/dL Hct 31.5 L (39.0-51.0) % MCV 93.1 (80.0-100.0) fL MCH 30.9 (27.0-34.0) pg MCHC 33.2 (32.0-36.0) % RDW 13.9 (11.6-17.2) % Plt Count 165 (150-450) th/mm3 MPV 7.9 (7.0-11.0) fL Prelim Diff (Auto) Neut % (Auto) 76.6 H (16.0-70.0) % Lymph % (Auto) 16.3 (9.0-44.0) % Hawkins % (Auto) 5.4 (0.0-8.0) % Eos % (Auto) 1.0 (0.0-4.0) % Baso % (Auto) 0.7 (0.0-2.0) % Neut # (Auto) 4.8 (1.8-7.7) th/mm3 Lymph # (Auto) 1.0 (1.0-4.8) th/mm3 Hawkins # (Auto) 0.3 (0.0-0.9) th/mm3 Eos # (Auto) 0.1 (0.0-0.4) th/mm3 Baso # (Auto) 0.0 (0.0-0.2) th/mm3 WBC Differential . Seg Neuts % (Manual) (16-70) % Lymphocytes % (Manual) (9-44) % Monocytes % (Manual) (0-8) % Abs Neuts (Manual) (1.8-7.7) th/mm3 Differential Comment Auto diff final Platelet Estimate (Normal) Platelet Morphology (Normal) RBC Morphology (Normal) PT 11.7 H (9.8-11.6) sec INR 1.2 Ratio APTT 31.7 H (24.3-30.1) sec Puncture Site Patient Temperature O2 Saturation (90-100) % ABG pH (7.380-7.420) ABG pCO2 (38-42) mmHg ABG pO2 (61-120) mmHg ABG HCO3 (22-26) mmol/L ABG O2 Content (12.0-20.0) Vol % ABG Base Excess (-2-2) mmol/L ABG Methemoglobin (0-2) % Eduardo Test Hemoglobin (12.0-16.0) G/DL Carboxyhemoglobin (0-4) % O2 Delivery Device Vent Setting Inspired O2 % Critical Value Sodium (136-145) meq/L Potassium (3.5-5.1) meq/L Chloride (98-107) meq/L Carbon Dioxide (21.0-32.0) meq/L Anion Gap (5-15) meq/L BUN (7-18) mg/dL Creatinine (0.60-1.30) mg/dL Estimated GFR (>89) mL/min POC Glucose (68-110) mg/dl Random Glucose (74-106) mg/dL Lactic Acid (0.4-2.0) mmol/L Calcium (8.5-10.1) mg/dL Prot Corrected Calcium (8.5-10.1) mg/dL Phosphorus (2.5-4.9) mg/dL Magnesium (1.5-2.5) mg/dL Total Bilirubin (0.2-1.0) mg/dL AST (15-37) U/L ALT (12-78) U/L Alkaline Phosphatase (45-117) U/L Ammonia 24 (11-32) mcmol/L Total Creatine Kinase (39-308) U/L CK-MB (CK-2) (0.5-3.6) ng/mL CK-MB (CK-2) % (0.0-4.0) % Troponin I (0.02-0.05) ng/mL Total Protein (6.4-8.2) g/dL Albumin (3.4-5.0) g/dL Urine Color (Yellw/Straw) Urine Clarity (Clear) Urine pH (5.0-8.5) Ur Specific Irving (1.002-1.035) Urine Protein (Neg-Trace) mg/dL Urine Glucose (UA) (Negative) mg/dL Urine Ketones (Negative) mg/dL Urine Occult Blood (Negative) Urine Nitrate (Negative) Urine Bilirubin (Negative) Urine Urobilinogen (Less than 2) mg/dL Ur Leukocyte Esterase (Negative) Urine RBC (0-3) /hpf Urine WBC (0-5) /hpf Urine Bacteria (None) /hpf Urine Mucus (Occasional) /lpf Micro UA Comment Ur Microscopic Review Urine Culture Comments Nasal Screen MRSA (PCR) (Negative) Salicylates (2.8-20.0) mg/dL Urine Opiates Screen (Neg) Acetaminophen (10.0-30.0) mcg/mL Ur Barbiturates Screen (Neg) Ur Amphetamines Screen (Neg) U Benzodiazepines Scrn (Neg) Urine Cocaine Screen (Neg) U Cannabinoids Screen (Neg) Serum Alcohol (0-5) mg/dL 05/04/18 05/04/18 05/04/18 Range/Units 05:08 06:15 06:30 WBC (4.0-11.0) th/mm3 RBC (4.50-5.90) mil/mm3 Hgb (13.0-17.0) gm/dL Hct (39.0-51.0) % MCV (80.0-100.0) fL MCH (27.0-34.0) pg MCHC (32.0-36.0) % RDW (11.6-17.2) % Plt Count (150-450) th/mm3 MPV (7.0-11.0) fL Prelim Diff (Auto) Neut % (Auto) (16.0-70.0) % Lymph % (Auto) (9.0-44.0) % Hawkins % (Auto) (0.0-8.0) % Eos % (Auto) (0.0-4.0) % Baso % (Auto) (0.0-2.0) % Neut # (Auto) (1.8-7.7) th/mm3 Lymph # (Auto) (1.0-4.8) th/mm3 Hawkins # (Auto) (0.0-0.9) th/mm3 Eos # (Auto) (0.0-0.4) th/mm3 Baso # (Auto) (0.0-0.2) th/mm3 WBC Differential Seg Neuts % (Manual) (16-70) % Lymphocytes % (Manual) (9-44) % Monocytes % (Manual) (0-8) % Abs Neuts (Manual) (1.8-7.7) th/mm3 Differential Comment Platelet Estimate (Normal) Platelet Morphology (Normal) RBC Morphology (Normal) PT (9.8-11.6) sec INR Ratio APTT (24.3-30.1) sec Puncture Site Patient Temperature O2 Saturation (90-100) % ABG pH (7.380-7.420) ABG pCO2 (38-42) mmHg ABG pO2 (61-120) mmHg ABG HCO3 (22-26) mmol/L ABG O2 Content (12.0-20.0) Vol % ABG Base Excess (-2-2) mmol/L ABG Methemoglobin (0-2) % Eduardo Test Hemoglobin (12.0-16.0) G/DL Carboxyhemoglobin (0-4) % O2 Delivery Device Vent Setting Inspired O2 % Critical Value Sodium (136-145) meq/L Potassium (3.5-5.1) meq/L Chloride (98-107) meq/L Carbon Dioxide (21.0-32.0) meq/L Anion Gap (5-15) meq/L BUN (7-18) mg/dL Creatinine (0.60-1.30) mg/dL Estimated GFR (>89) mL/min POC Glucose 49 L* (68-110) mg/dl Random Glucose 79 (74-106) mg/dL Lactic Acid 1.1 (0.4-2.0) mmol/L Calcium (8.5-10.1) mg/dL Prot Corrected Calcium (8.5-10.1) mg/dL Phosphorus (2.5-4.9) mg/dL Magnesium (1.5-2.5) mg/dL Total Bilirubin (0.2-1.0) mg/dL AST (15-37) U/L ALT (12-78) U/L Alkaline Phosphatase (45-117) U/L Ammonia (11-32) mcmol/L Total Creatine Kinase (39-308) U/L CK-MB (CK-2) (0.5-3.6) ng/mL CK-MB (CK-2) % (0.0-4.0) % Troponin I (0.02-0.05) ng/mL Total Protein (6.4-8.2) g/dL Albumin (3.4-5.0) g/dL Urine Color (Yellw/Straw) Urine Clarity (Clear) Urine pH (5.0-8.5) Ur Specific Irving (1.002-1.035) Urine Protein (Neg-Trace) mg/dL Urine Glucose (UA) (Negative) mg/dL Urine Ketones (Negative) mg/dL Urine Occult Blood (Negative) Urine Nitrate (Negative) Urine Bilirubin (Negative) Urine Urobilinogen (Less than 2) mg/dL Ur Leukocyte Esterase (Negative) Urine RBC (0-3) /hpf Urine WBC (0-5) /hpf Urine Bacteria (None) /hpf Urine Mucus (Occasional) /lpf Micro UA Comment Ur Microscopic Review Urine Culture Comments Nasal Screen MRSA (PCR) (Negative) Salicylates (2.8-20.0) mg/dL Urine Opiates Screen (Neg) Acetaminophen (10.0-30.0) mcg/mL Ur Barbiturates Screen (Neg) Ur Amphetamines Screen (Neg) U Benzodiazepines Scrn (Neg) Urine Cocaine Screen (Neg) U Cannabinoids Screen (Neg) Serum Alcohol (0-5) mg/dL 05/04/18 05/04/18 Range/Units 06:35 06:49 WBC (4.0-11.0) th/mm3 RBC (4.50-5.90) mil/mm3 Hgb (13.0-17.0) gm/dL Hct (39.0-51.0) % MCV (80.0-100.0) fL MCH (27.0-34.0) pg MCHC (32.0-36.0) % RDW (11.6-17.2) % Plt Count (150-450) th/mm3 MPV (7.0-11.0) fL Prelim Diff (Auto) Neut % (Auto) (16.0-70.0) % Lymph % (Auto) (9.0-44.0) % Hawkins % (Auto) (0.0-8.0) % Eos % (Auto) (0.0-4.0) % Baso % (Auto) (0.0-2.0) % Neut # (Auto) (1.8-7.7) th/mm3 Lymph # (Auto) (1.0-4.8) th/mm3 Hawkins # (Auto) (0.0-0.9) th/mm3 Eos # (Auto) (0.0-0.4) th/mm3 Baso # (Auto) (0.0-0.2) th/mm3 WBC Differential Seg Neuts % (Manual) (16-70) % Lymphocytes % (Manual) (9-44) % Monocytes % (Manual) (0-8) % Abs Neuts (Manual) (1.8-7.7) th/mm3 Differential Comment Platelet Estimate (Normal) Platelet Morphology (Normal) RBC Morphology (Normal) PT (9.8-11.6) sec INR Ratio APTT (24.3-30.1) sec Puncture Site Patient Temperature O2 Saturation (90-100) % ABG pH (7.380-7.420) ABG pCO2 (38-42) mmHg ABG pO2 (61-120) mmHg ABG HCO3 (22-26) mmol/L ABG O2 Content (12.0-20.0) Vol % ABG Base Excess (-2-2) mmol/L ABG Methemoglobin (0-2) % Eduardo Test Hemoglobin (12.0-16.0) G/DL Carboxyhemoglobin (0-4) % O2 Delivery Device Vent Setting Inspired O2 % Critical Value Sodium (136-145) meq/L Potassium (3.5-5.1) meq/L Chloride (98-107) meq/L Carbon Dioxide (21.0-32.0) meq/L Anion Gap (5-15) meq/L BUN (7-18) mg/dL Creatinine (0.60-1.30) mg/dL Estimated GFR (>89) mL/min POC Glucose 63 L 88 (68-110) mg/dl Random Glucose (74-106) mg/dL Lactic Acid (0.4-2.0) mmol/L Calcium (8.5-10.1) mg/dL Prot Corrected Calcium (8.5-10.1) mg/dL Phosphorus (2.5-4.9) mg/dL Magnesium (1.5-2.5) mg/dL Total Bilirubin (0.2-1.0) mg/dL AST (15-37) U/L ALT (12-78) U/L Alkaline Phosphatase (45-117) U/L Ammonia (11-32) mcmol/L Total Creatine Kinase (39-308) U/L CK-MB (CK-2) (0.5-3.6) ng/mL CK-MB (CK-2) % (0.0-4.0) % Troponin I (0.02-0.05) ng/mL Total Protein (6.4-8.2) g/dL Albumin (3.4-5.0) g/dL Urine Color (Yellw/Straw) Urine Clarity (Clear) Urine pH (5.0-8.5) Ur Specific Irving (1.002-1.035) Urine Protein (Neg-Trace) mg/dL Urine Glucose (UA) (Negative) mg/dL Urine Ketones (Negative) mg/dL Urine Occult Blood (Negative) Urine Nitrate (Negative) Urine Bilirubin (Negative) Urine Urobilinogen (Less than 2) mg/dL Ur Leukocyte Esterase (Negative) Urine RBC (0-3) /hpf Urine WBC (0-5) /hpf Urine Bacteria (None) /hpf Urine Mucus (Occasional) /lpf Micro UA Comment Ur Microscopic Review Urine Culture Comments Nasal Screen MRSA (PCR) (Negative) Salicylates (2.8-20.0) mg/dL Urine Opiates Screen (Neg) Acetaminophen (10.0-30.0) mcg/mL Ur Barbiturates Screen (Neg) Ur Amphetamines Screen (Neg) U Benzodiazepines Scrn (Neg) Urine Cocaine Screen (Neg) U Cannabinoids Screen (Neg) Serum Alcohol (0-5) mg/dL Imaging Data Attestation: I personally reviewed and interpreted this imaging study as follows : My impression: Initial EKG Sinus rhythm rate 62 without STEMI changes. Radiologist's impression: Head CT 05/03/18 10:25 CONCLUSION: 1. Microvascular ischemic demyelinative changes. No acute abnormality. Cervical Spine CT 05/03/18 12:37 CONCLUSION: 1. 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 2. No acute cervical spine fracture identified. Head CT 05/03/18 12:37 CONCLUSION: 1. Microvascular ischemic demyelinative change. No acute intracranial abnormality identified. . Chest X-Ray 05/03/18 17:33 CONCLUSION: 1. ET tube in good position 2. There is a lucent reflection in the left chest which could represent a pneumothorax, but appears to extend into the upper abdomen suggesting and may represent a skinfold or something extrinsic to the patient. Recommend performing an expiratory view of the chest for further evaluation. Abdomen/Pelvis CT 05/04/18 00:00 CONCLUSION: 1. Thick walled urinary bladder with a Buchanan catheter. Similar findings were seen on the prior 2 studies. 2. No obstruction or acute inflammatory changes are seen of the gastrointestinal tract. 3. Mildly distended stomach despite presence of nasogastric tube. There is questionable wall thickening, especially greater curvature of the body. This is nonspecific. Chronic hiatal hernia. 4. Cholelithiasis again demonstrated. No associated inflammatory changes are seen. No duct stone or ductal dilatation. 5. Small effusions of the visualized lung bases and mild body wall edema/ anasarca. 6. Mild bibasilar atelectasis. Discharge Plan Discharge Disposition Patient Disposition: 30 Still Patient Discharge Condition Condition: Stable Discharge Details Diagnosis: Acute metabolic encephalopathy, Chronic hypokalemia, Observed seizure-like activity, Hypocalcemia, Benign paroxysmal positional vertigo of left ear, Hyperammonemia, Hypomagnesemia, Altered mental status Physicians Team ED Provider: Kevin Pickering ED Midlevel Provider: Malia Jamison Primary Care Provider: Marce Comer Attending Provider: Orlin Gutierres Other Providers: Saeed Batres ; [facility],Insurance Status ED Status: Left Department Discharge Information Discharge Date/Time: 05/03/18 19:15
--- NOTE | 2018-05-03 10:55 | CT ---
EXAM DATE: 05/03/2018 10:43 AM EDT AGE/SEX: 78 years / Male INDICATIONS: Dizziness. CLINICAL DATA: This is the patient's initial encounter. Patient reports that signs and symptoms have been present for 1 day and indicates a pain score of 0/10. MEDICAL/SURGICAL HISTORY: Hyperparathyroidism. None. RADIATION DOSE: 56.35 CTDI (mGy) COMPARISON: [facility], CT BRAIN W/O CONTRAST, 09/26/2017. . TECHNIQUE: CT of the head without contrast. Using automated exposure control and adjustment of the mA and/or kV according to patient size, radiation dose was kept as low as reasonably achievable to ob tain optimal diagnostic quality images. DICOM format image data is available electronically for revi ew and comparison. FINDINGS: Cerebrum: The ventricles are normal in size and configuration. There is decreased attenuation of the periventricular and subcortical white matter most consistent with microvascular ischemic demyelinati ve change. There is no acute intracranial hemorrhage. No abnormal extra-axial fluid collections are s een. The sulci and gyri are otherwise intact. Posterior Fossa: The cerebellum and brainstem are intact. The 4th ventricle is midline. The cerebe llopontine angle is unremarkable. Extracranial: The visualized portion of the orbits is intact. Skull: The calvaria is intact. No evidence of skull fracture. CONCLUSION: 1. Microvascular ischemic demyelinative changes. No acute abnormality. Electronically signed by: Donis Moore MD 05/03/2018 10:54 AM EDT
[2018-05-03 12:09] LABS: Hematocrit 36.5 % (39.0-51.0); Hemoglobin 12.1 gm/dL (13.0-17.0); Mean Corpuscular HGB Conc 33.1 % (32.0-36.0); Mean Corpuscular Hemoglobin 30.7 pg (27.0-34.0); Mean Corpuscular Volume 92.7 fL (80.0-100.0); Mean Platelet Volume 7.9 fL (7.0-11.0); Platelet Count 202 th/mm3 (150-450); Red Blood Count 3.94 mil/mm3 (4.50-5.90); White Blood Count 4.8 th/mm3 (4.0-11.0)
[2018-05-03 12:20] LABS: INR 1.3 Ratio; Prothrombin Time 12.9 sec (9.8-11.6)
[2018-05-03 12:51] LABS: Lymphocytes 9 % (9-44); Monocytes 8 % (0-8); RBC Morphology Normal (Normal)
[2018-05-03 12:52] LABS: Platelet Estimate Normal (Normal); Platelet Morphology Normal (Normal)
[2018-05-03 12:55] LABS: Albumin 3.1 g/dL (3.4-5.0); Calcium 7.4 mg/dL (8.5-10.1); Carbon Dioxide 29.7 meq/L (21.0-32.0); Potassium 3.1 meq/L (3.5-5.1); Total Protein 7.3 g/dL (6.4-8.2)
[2018-05-03] MEDS ORDERED: Potassium Chlor 20 mEq Premix 20 MEQ/100 ML PIGGYBACK IV.SIG ONE (13:18)
[2018-05-03 13:48] LABS: Bacteria,Urine Occasional /hpf; Bilirubin,Urine Negative (Negative); Clarity,Urine Clear (Clear); Color,Urine Yellow (Yellw/Straw); Glucose,Urine (UA) Negative (Negative); Leukocyte Esterase,Urine Small (Negative); Mucus,Urine Few /lpf (Occasional); Nitrite,Urine Negative (Negative); Specific Gravity,Urine 1.006 (1.002-1.035)
--- NOTE | 2018-05-03 13:53 | CT ---
EXAM DATE: 05/03/2018 1:00 PM EDT AGE/SEX: 78 years / Male INDICATIONS: Seizure, fall. CLINICAL DATA: This is the patient's initial encounter. Patient reports that signs and symptoms have been present for 1 day and indicates a pain score of Nonresponsive. MEDICAL/SURGICAL HISTORY: Hypertension. None. RADIATION DOSE: 66.37 CTDI (mGy) COMPARISON: [facility], CT HEAD W/O CONTRAST, 05/03/2018. . TECHNIQUE: CT of the head without contrast. Using automated exposure control and adjustment of the mA and/or kV according to patient size, radiation dose was kept as low as reasonably achievable to ob tain optimal diagnostic quality images. DICOM format image data is available electronically for revi ew and comparison. FINDINGS: Cerebrum: The ventricles are normal for age. There is decreased attenuation in the periventricular a nd subcortical white matter most consistent with microvascular ischemic demyelinative change. No quentin dence of midline shift, mass lesion, hemorrhage or acute infarction. No extraaxial fluid collections are seen. Posterior Fossa: The cerebellum and brainstem are intact. The 4th ventricle is midline. The cerebe llopontine angle is unremarkable. Extracranial: The visualized portion of the orbits is intact. Skull: The calvaria is intact. No evidence of skull fracture. CONCLUSION: 1. Microvascular ischemic demyelinative change. No acute intracranial abnormality identified. . Electronically signed by: Donis Moore MD 05/03/2018 1:52 PM EDT
[2018-05-03] MEDS ORDERED: hydrALAZINE HCl Inj 20 MG/ML Vial IV.PUSH ONE (13:58)
--- NOTE | 2018-05-03 14:05 | CT ---
EXAM DATE: 05/03/2018 1:00 PM EDT AGE/SEX: 78 years / Male INDICATIONS: Seizure, fall. CLINICAL DATA: This is the patient's initial encounter. Patient reports that signs and symptoms have been present for 1 day and indicates a pain score of Nonresponsive. MEDICAL/SURGICAL HISTORY: Hypertension. None. RADIATION DOSE: 14.04 CTDI (mGy) COMPARISON: No prior exams available for comparison. TECHNIQUE: Contiguous axial images were obtained using helical multirow detector technique. The vol umetric data was post-processed with multiplanar reconstruction in oblique axial, sagittal, and coron al planes. Using automated exposure control and adjustment of the mA and/or kV according to patient s ize, radiation dose was kept as low as reasonably achievable to obtain optimal diagnostic quality jillian ges. DICOM format image data is available electronically for review and comparison. FINDINGS: Sagittal and coronal reformatted images demonstrate adequate alignment of the cervical vertebral bodi es. There are degenerative changes in the atlantodens joint. There are degenerated disc at C3/4, C4/5 and C5/6. The overall alignment is adequate. No acute cervical fracture is identified. Axial imaging: C2-C3: The thecal sac has a normal configuration. There is no evidence of disc herniation or spinal canal stenosis. The neural foramina are patent bilaterally. C3-C4: There is a small central disc protrusion which abuts the ventral aspect of the cord. The fora margaret are adequate. There is mild arthritic changes within the facet joints bilaterally. C4-C5: There is a degenerated disc with broad-based disc bulge which effaces the ventral thecal sac. There is flattening of ventral aspect of the cord. There is slight encroachment on the lateral reces s bilaterally. The foramina are adequate. There is moderate facet arthritis bilaterally. C5-C6: There is a degenerated disc with broad-based disc bulge and osteophytic ridging which effaces the ventral thecal sac. There is encroachment of disc bulge on the lateral recess bilaterally. There is moderate facet arthritis bilaterally. C6-C7: There is a degenerated disc with broad-based disc bulge and osteophytic ridging. This effaces the ventral thecal sac. There is moderate facet arthritis bilaterally. There is moderate bony forami nal narrowing bilaterally. C7-T1: No epidural impressions seen. CONCLUSION: 1. 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 2. No acute cervical spine fracture identified. Electronically signed by: Donis Moore MD 05/03/2018 2:04 PM EDT
[2018-05-03] MEDS ORDERED: Sod Chloride 0.9% Inj 1,000 ML IV.SIG SCH (14:15)
[2018-05-03] MEDS ORDERED: Magnesium Sulfate Inj 2 GM in Sodium Chlor 0.9% Inj 96 ML IV.SIG ONE (14:18)
[2018-05-03] MEDS ORDERED: Bisacodyl 10 MG Supp RECTAL PRN ×2 (14:37→17:29)
[2018-05-03] MEDS ORDERED: Acetaminophen 325 MG Tablet PO PRN ×2 (14:37→17:29)
[2018-05-03] MEDS ORDERED: Sod Chloride 0.9% Inj 1,000 ML IV.CONT SCH (14:45)
[2018-05-03] MEDS ORDERED: Thiamine Inj 100 MG in Sodium Chlor 0.9% Inj 100 ML IV.SIG ONE (15:12)
[2018-05-03] MEDS ORDERED: Enoxaparin Inj 40 MG/0.4 ML Syringe SQ SCH (16:00)
[2018-05-03] MEDS ORDERED: Etomidate Inj 20 MG/10 ML Ampul IV.PUSH ONE (16:51)
[2018-05-03] MEDS ORDERED: Succinylcholine Inj 100 MG/5 ML Syringe IV.PUSH ONE (16:51)
[2018-05-03] MEDS ORDERED: Etomidate Inj 40 MG/20 ML Vial IV.PUSH ONE (16:53)
[2018-05-03] MEDS ORDERED: Propofol 1000 mg/100 ml Inj 1,000 MG/100 ML BOTTLE IV.CONT PRN (17:01)
[2018-05-03] MEDS ORDERED: Sodium Phosphate Inj 30 MMOL in Sodium Chlor 0.9% Inj 250 ML IV.SIG PRN (17:20)
[2018-05-03] MEDS ORDERED: Potassium Chlor 40 mEq Premix 40 MEQ/100 ML PIGGYBACK IV.SIG PRN (17:20)
[2018-05-03] MEDS ORDERED: Potassium Chlor 20 mEq Premix 20 MEQ/100 ML PIGGYBACK IV.SIG PRN ×2 (17:20)
[2018-05-03] MEDS ORDERED: Potassium Phosphate 500 MG Soluble Tablet PO PRN (17:20)
[2018-05-03] MEDS ORDERED: Potassium Chloride 25 MEQ Effervescent Tablet PO PRN (17:20)
[2018-05-03] MEDS ORDERED: Magnesium Sulfate Inj 2 GM in Sodium Chlor 0.9% Inj 96 ML IV.SIG PRN (17:20)
[2018-05-03] MEDS ORDERED: Magnesium Sulfate Inj 4 GM in Sodium Chlor 0.9% Inj 92 ML IV.SIG PRN (17:20)
[2018-05-03] MEDS ORDERED: Potassium Phosphate Inj 30 MMOL in Sodium Chlor 0.9% Inj 250 ML IV.SIG PRN (17:20)
[2018-05-03] MEDS ORDERED: Magnesium Oxide 400 MG Tablet PO PRN (17:20)
[2018-05-03] MEDS ORDERED: fentaNYL 10 mcg/mL Premix Drip 2,500 MCG/250 ML BAG IV.SIG PRN (17:24)
[2018-05-03] MEDS: Propofol 1000 mg/100 ml Inj 1,000 MG/100 ML BOTTLE IV.CONT PRN ×2 (17:30→20:55)
[2018-05-03] MEDS ORDERED: Calcium Chloride Inj 1 GM/10 ML Syringe IV.PUSH ONE (17:38)
[2018-05-03] MEDS ORDERED: niCARdipine Inj 25 MG in Sodium Chlor 0.9% Inj 250 ML IV.CONT PRN (17:39)
--- NOTE | 2018-05-03 17:46 | P.PCN ---
Date of procedure: 05/03/18 Pre-op diagnosis: Respiratory failure seizures, need for central access Post-op diagnosis: same Procedure: Central line checklist completed, timeout completed. I wore a surgical cap, mask with protective eyewear, full gown and sterile gloves throughout the procedure. Left shoulder and upper chest region was prepped using chlorhexidine scrub and draped in sterile fashion. Anesthesia was achieved over the vein using 1% lidocaine. The introducer needle was inserted into the left subclavian vein and venous blood was withdrawn. The syringe was removed and a guidewire was advanced into the introducer needle. A small incision was made at the skin surface with a scalpel and the introducer needle was exchanged for a dilator over the guidewire. After appropriate dilation was obtained, the dilator was exchanged over the wire for a triple lumen, 7F, antibiotic coated central venous catheter. The wire was removed and the catheter was secured with StatLock at 19 cm. A sterile central line dressing was placed over the catheter at the insertion site. The patient tolerated the procedure without any hemodynamic compromise. At time of procedure completion, all ports aspirated and flushed properly. Post-procedure chest x-ray is pending at this time. Anesthesia: local Surgeon: Jose Guadalupe Frias Estimated blood loss (mL): 1 Pathology: none sent Condition: critical Disposition: ICU
--- NOTE | 2018-05-03 17:55 | P.HPCC ---
History of Present Illness Service: Critical care medicine Primary Care Physician: Marce Comer MD Chief Complaint: Seizure, altered mental status History of Present Illness: This is a 78-year-old -[place] male. Date of admission 05/03/2018. Past medical history includes history of cocaine, THC, alcohol abuse, history of TIA, gastroparesis, hypertension, BPH, prostate cancer status post TURP. Patient self caths. History of hypomagnesia. [id number] with history of hypertension presents to the emergency department for evaluation of weakness for 6 months. He says that he was in this emergency department approximately 6 months ago and since then, he has felt weak. He says that he has had poor oral intake and is 'almost homeless'. Reported no abdominal symptoms including diarrhea, nausea or vomiting per Patient had a essentially negative CT of the brain. When laboratories returned , was noted to have a magnesium 0.4. Potassium 3.1. Calcium 7.4. Elevated ammonia level. Patient received potassium. When the patient about received magnesium, patient had a witnessed seizure. Fell in the form struck it. Became more acutely confused required intubation. Repeat brain CT revealed no acute findings. EKG revealed no prolonged QTc interval. Currently receiving 4 g mag sulfate IV x1 now. Central has been placed to help axis. CT abdomen/ pelvis and MRI brain pending. Review of Systems unobtainable due to endotracheal tube PMFSH - History History Provided By: Patient - Medical History Medical History: Medical History (Last Updated 05/03/18 @ 17:47 by Orlin Gutierres MD) Alcohol use Gastroesophageal reflux disease HTN (hypertension) Hypomagnesemia Osteoarthritis Tetrahydrocannabinol (THC) use disorder, mild, abuse Cocaine abuse in remission Prostate cancer TIA (transient ischemic attack) Urinary retention due to benign prostatic hyperplasia - Surgical History Surgical History: Surgical History (Last Updated 05/03/18 @ 17:47 by Orlin Gutierres MD) H/O cystoscopy History of ERCP History of esophagogastroduodenoscopy (EGD) S/P TURP - Family History Family History: Family History (Last Updated 05/03/18 @ 18:08 by Orlin Gutierres MD) Other Family history unknown - Social History I have reviewed the patient's Social History: Yes - Tobacco History Second Hand Smoke Exposure: No Tobacco Use In Past 30 Days: Yes Smoking Status: Current every day smoker Tobacco Type: Cigarettes - Alcohol History How Often Do You Have a Drink Containing Alcohol: 2 to 4 times a month - Substance Use History Substance History: Past History - Travel History Recent Travel in the [place] Within the Last 8 Weeks: No Recent Travel Out of the Country Within the Last 8 Weeks: No - Immunization History Tetanus Immunization: <5 Years Medications and Allergies Active Medications: Active Medications Acetaminophen (Tylenol) 650 mg PO Q6H PRN PRN Reason: Fever >101f Al Hydroxide/Mg Hydroxide (Milk Of Mauri Liq) 30 ml PO Q12H PRN PRN Reason: Mild Constipation Albuterol (Albuterol Neb (Arabella)) 2.5 mg NEB Q2HR NEB PRN PRN Reason: SHORTNESS OF BREATH/WHEEZING Albuterol (Duoneb Neb (Prn)) 1 ampul NEB Q4HR NEB ARABELLA Artificial Tears (Refresh Tears 0.5% Opth Drops) 1 drop EACH EYE BID ARABELLA Bisacodyl (Dulcolax Supp) 10 mg RECTAL DAILY PRN PRN Reason: SEVERE CONSITIPATION Calcium Chloride (Calcium Chloride Inj) 0.5 gm IV.PUSH ONCE ONE Stop: 05/03/18 17:39 Chlorhexidine Gluconate (Peridex 0.12% Oral Kit) 15 ml OROPHARYNG BID@0800, 2000 ARABELLA Chlorhexidine Gluconate (Chlorhexidine 2% Cloth) 3 pack TOPICAL DAILY@0400 ARABELLA Stop: 05/09/18 03:59 Chlorhexidine Gluconate (Chlorhexidine 2% Cloth) 3 pack TOPICAL DAILY@0400 PRN PRN Reason: Extra cloth needed Stop: 05/09/18 03:59 Dextrose (D50w Vial) 50 ml IV.PUSH UNSCH PRN PRN Reason: PER HYPOGLYCEMIA PROTOCOL Glucagon (Glucagon Inj) 1 mg OTHER PRN PRN PRN Reason: for Hypoglycemia Protocol Heparin Sodium (Porcine) (Heparin Inj) 5,000 units SQ Q12H ARABELLA Sodium Chloride (Ns Inj) 1,000 mls @ 0 mls/hr IV.SIG BOLUS ARABELLA Last Admin: 05/03/18 14:12 Dose: 999 mls/hr Magnesium Sulfate 4 gm/ Sodium (Chloride) 100 mls @ 50 mls/hr IV.SIG UNSCH PRN PRN Reason: For Magnesium 0.9 - 1.1 mg/dL Potassium Chloride (Kcl 40 Meq Premix Inj) 40 meq in 100 mls @ 25 mls/hr IV.SIG Q2H PRN PRN Reason: For Potassium 2.8 - 3.2 mEq/L Potassium Chloride (Kcl 20 Meq Premix Inj) 20 meq in 100 mls @ 50 mls/hr IV.SIG Q2H PRN PRN Reason: For Potassium 3.3 - 3.5 mEq/L Potassium Chloride (Kcl 40 Meq Premix Inj) 40 meq in 100 mls @ 25 mls/hr IV.SIG UNSCH PRN PRN Reason: For Potassium 3.3 - 3.5 mEq/L Potassium Chloride (Kcl 20 Meq Premix Inj) 20 meq in 100 mls @ 50 mls/hr IV.SIG Q2H PRN PRN Reason: For Potassium 2.8 - 3.2 mEq/L Potassium Phosphate 30 mmol/ (Sodium Chloride) 260 mls @ 42 mls/hr IV.SIG UNSCH PRN PRN Reason: SEE LABEL COMMENTS Sodium Phosphate 30 mmol/ (Sodium Chloride) 260 mls @ 42 mls/hr IV.SIG UNSCH PRN PRN Reason: For Phosphorus < 2.5 mg/dL Magnesium Sulfate 4 gm/ (Dextrose) 108 mls @ 25 mls/hr IV.SIG ONCE ONE Stop: 05/03/18 21:42 Propofol (Diprivan 1000 Mg/100 Ml Inj) 1,000 mg in 100 mls @ 1.701 mls/hr IV.CONT TITRATE PRN; Protocol PRN Reason: Per Protocol Fentanyl (Fentanyl 10 Mcg/Ml Premix Drip) 2,500 mcg in 250 mls @ 5 mls/hr IV.SIG TITRATE PRN; Protocol PRN Reason: Per Protocol Potassium Chloride/Sodium Chloride (Ns + Kcl 20 Meq Inj) 1,000 mls @ 100 mls/ hr IV.CONT .Q10H ARABELLA Multivitamins 10 ml/ Thiamine HCl 100 mg/ Folic Acid 1 mg/Sodium Chloride 511.2 mls @ 125 mls/hr IV.SIG Q24H ARABELLA Stop: 05/05/18 22:06 Nicardipine HCl 25 mg/ Sodium (Chloride) 250 mls @ 50 mls/hr IV.CONT TITRATE PRN; Protocol PRN Reason: Per Protocol Insulin Aspart (Novolog Insulin Correctional Sugar Inj) 0 unit SQ Q6HR ARABELLA; Protocol Lactulose (Lactulose Liq) 30 ml PO BID ARABELLA Magnesium Oxide (Mag-Ox) 800 mg PO UNSCH PRN PRN Reason: For Magnesium 1.2 - 1.6 mg/dL Miscellaneous Medication () 1 each OROPHARYNG 0000,0400,1200,1600 ARABELLA Ondansetron HCl (Zofran Inj) 4 mg IV.PUSH Q6H PRN PRN Reason: NAUSEA OR VOMITING Pantoprazole Sodium (Protonix Inj) 40 mg IV.PUSH DAILY ARABELLA Potassium Bicarb/Potassium Chloride (K-Lyte Cl Eff) 50 meq PO UNSCH PRN PRN Reason: For Potassium 3.3 - 3.5 mEq/L Potassium Phosphate (K-Phos Original) 2,000 mg PO Q4H PRN PRN Reason: Phosphorus Less Than 2.5 mg/dL Potassium Phosphate (K-Phos Original) 2,000 mg PO UNSCH PRN PRN Reason: SEE LABEL COMMENTS Senna/Docusate Sodium (Juliet-Colace) 1 tab PO BID ARABELLA Sennosides (Senokot) 17.2 mg PO Q12H PRN PRN Reason: Moderate Constipation Sennosides (Senokot) 17.2 mg PO Q12H PRN PRN Reason: Moderate Constipation Sodium Chloride (Ns Flush) 2 ml IV.FLUSH PRN PRN PRN Reason: FLUSH AFTER USING IV ACCESS Sodium Chloride (Ns Flush) 2 ml IV.FLUSH BID ARABELLA Sodium Chloride (Ns Flush) 2 ml IV.FLUSH PRN PRN PRN Reason: FLUSH AFTER USING IV ACCESS Allergies Allergy/AdvReac Type Severity Reaction Status Date / Time No Known Allergies Allergy Verified 05/03/18 09:59 Home Medications Medication Instructions Recorded Confirmed Type No Known Home Medications 05/03/18 05/03/18 History Results - Labs CBC & Chem 7: 05/03/18 11:55 05/03/18 11:55 Labs: Short CBC 05/03/18 Range/Units 11:55 WBC 4.8 (4.0-11.0) th/mm3 Hgb 12.1 L (13.0-17.0) gm/dL Hct 36.5 L (39.0-51.0) % Plt Count 202 (150-450) th/mm3 BMP 05/03/18 11:55 Sodium 142 Potassium 3.1 L Chloride 106 Carbon Dioxide 29.7 BUN 14 Creatinine 1.25 Calcium 7.4 L* Cardiac Enzymes 05/03/18 Range/Units 11:55 Total Creatine Kinase 154 (39-308) U/L Liver Function 05/03/18 Range/Units 11:55 Total Bilirubin 1.1 H (0.2-1.0) mg/dL AST 28 (15-37) U/L ALT 21 (12-78) U/L Alkaline Phosphatase 87 (45-117) U/L Albumin 3.1 L (3.4-5.0) g/dL Urine 05/03/18 Range/Units 12:45 Urine Color Yellow (Yellw/Straw) Urine Clarity Clear (Clear) Urine pH 7.0 (5.0-8.5) Ur Specific [place] 1.006 (1.002-1.035) Urine Protein Negative (Neg-Trace) mg/dL Urine Glucose (UA) Negative (Negative) mg/dL - Imaging Impressions Head CT 05/03/18 10:25 CONCLUSION: 1. Microvascular ischemic demyelinative changes. No acute abnormality. Cervical Spine CT 05/03/18 12:37 CONCLUSION: 1. 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 2. No acute cervical spine fracture identified. Head CT 05/03/18 12:37 CONCLUSION: 1. Microvascular ischemic demyelinative change. No acute intracranial abnormality identified. . Exam Vital signs: Vital Signs 05/03/18 09:55 05/03/18 11:00 05/03/18 12:40 Temperature 98.2 F Pulse Rate 76 61 120 H Respiratory Rate 20 18 20 Blood Pressure 202/117 H 191/99 H 184/97 H Pulse Oximetry 97 96 98 05/03/18 13:40 05/03/18 14:40 05/03/18 16:57 Temperature Pulse Rate 106 H 120 H 155 H Respiratory Rate 20 22 22 Blood Pressure 167/101 H 195/104 H 201/112 H Pulse Oximetry 96 98 99 05/03/18 17:00 05/03/18 17:04 Temperature Pulse Rate 117 H Respiratory Rate 14 14 Blood Pressure 199/125 H Pulse Oximetry 100 99 Intake & Output 05/02/18 05/03/18 05/03/18 18:59 06:59 18:59 Intake Total 1000 / 1000 Output Total 700 / 700 Balance 300 / 300 Weight 56.699 kg Intake: IV 1000 / 1000 NS Inj 1,000 ML @ Wide Open IV. 1000 / 1000 SIG BOLUS ONE Rx#:[id number] Output: Urine 700 / 700 - Constitutional no acute distress - Routine HEENT Exam Head: Present: normocephalic, atraumatic Eye: Present: EOMI, PERRL, normal accommodation ENT: Present: mucous membranes dry - Routine Neck Exam Present: supple, full ROM. Absent: carotid bruit - Routine Chest/Breast/Axilla Exam Chest wall: Absent: tenderness Breast: Absent: tenderness Axillae: Absent: lymphadenopathy - Routine Respiratory Exam Present: CTA bilaterally. Absent: accessory muscle use - Routine Cardiovascular Exam Present: S1, S2, tachycardia. Absent: murmur - Routine Abdominal Exam Present: soft, normoactive bowel sounds - Routine Extremities Exam Absent: cyanosis, clubbing, edema - Routine Skin Exam Present: intact - Routine Neurological Exam Absent: alert, oriented X3 Septic Shock Reassessment Septic shock perfusion: reassessment completed Caprini VTE Risk Assessment Caprini VTE Risk Assessment: Moderate/High Risk (score >= 2) Caprini Risk Assessment Model: Point Value = 1 Point Value = 2 Point Value = 3 Point Value = 5 Age 41-60 Minor surgery BMI > 25 kg/m2 Swollen legs Varicose veins or History of unexplained or recurrent spontaneous Oral contraceptives or hormone replacement Sepsis (< 1 month) Serious lung disease, including pneumonia (< 1 month) Abnormal pulmonary function Acute myocardial infarction Congestive heart failure (< 1 month) History of inflammatory bowel disease Medical patient at bed rest Age 61-74 Arthroscopic surgery Major open surgery (> 45 min) Laparoscopic surgery (> 45 min) Malignancy Confined to bed (> 72 hours) Immobilizing plaster cast Central venous access Age >= 75 History of VTE Family history of VTE Factor V Leiden Prothrombin [id number] Lupus anticoagulant Anticardiolipin antibodies Elevated serum homocysteine Heparin-induced thrombocytopenia Other congenital or acquired thrombophilia Stroke (< 1 month) Elective arthroplasty Hip, pelvis, or leg fracture Acute spinal cord injury (< 1 month) Prophylaxis Regimen: Total Risk Factor Score Risk Level Prophylaxis Regimen 0-1 Low Early ambulation 2 Moderate Order ONE of the following: *Sequential Compression Device (SCD) *Heparin 5000 units SQ BID 3-4 Higher Order ONE of the following medications: *Heparin 5000 units SQ TID *Enoxaparin/Lovenox 40 mg SQ daily (WT < 150 kg, CrCl > 30 mL/min) *Enoxaparin/Lovenox 30 mg SQ daily (WT < 150 kg, CrCl > 10-29 mL/min) *Enoxaparin/Lovenox 30 mg SQ BID (WT < 150 kg, CrCl > 30 mL/min) AND/OR *Sequential Compression Device (SCD) 5 or more Highest Order ONE of the following medications: *Heparin 5000 units SQ TID (Preferred with Epidurals) *Enoxaparin/Lovenox 40 mg SQ daily (WT < 150 kg, CrCl > 30 mL/min) *Enoxaparin/Lovenox 30 mg SQ daily (WT < 150 kg, CrCl > 10-29 mL/min) *Enoxaparin/Lovenox 30 mg SQ BID (WT < 150 kg, CrCl > 30 mL/min) AND *Sequential Compression Device (SCD) Assessment and Plan - Assessment and Plan Plan: Neuro/Psych: Seizure -likely secondary to hypomagnesia Acute CVA History of cocaine, THC and alcohol abuse Currently on propofol/fentanyl drips for sedation/analgesia while intubated Goal of RASS -[address] brain negative for acute findings x2. MRI brain ordered. EEG ordered. Seizure precautions Vitamin bag daily times 3 days including thiamine, folate and multivitamin Monitor for DTs Urine drug screen, alcohol, salicylates and acetaminophen pending Levetiracetam 1 g followed by 500 mg twice daily CV: Sinus tachycardia Essential hypertension 2 L normal saline bolus x1 now Currently on normal saline with 20 mEq of potassium chloride at 100 cc an hour As needed nicardipine drip for systolic blood pressure greater than equal to 160 Resp: Acute respiratory failure [facility] 14/500/08/11/39 Ventilator bundle Albuterol/ipratropium aerosols every 4 hours with albuterol aerosols every 2 hours as needed for dyspnea Spontaneous breathing trials when clinically indicated Follow postintubation ABG and chest x-ray GI: Gastroesophageal reflux disease Elevated ammonia NGT to LIWS Pantoprazole for GI prophylaxis Docusate serum/senna 1 tablet twice daily for bowel regimen Lactulose 30 cc twice daily for elevated ammonia. Recheck in a.m. CT abdomen/pelvis with history of BPH, UTI and low magnesium : History of BPH Buchanan catheter has been placed for accurate I's and O's in a critically ill patient Endo: Sliding scale insulin Accu-Cheks to maintain euglycemia/low regimen with aspart insulin Check TSH Renal: Acute kidney injury Normal saline with 20 milliequivalents potassium chloride at 100 cc an hour Monitor urine output Accurate I's and O's Heme: Prostate cancer poorly differentiated adenocarcinoma 2006 status post TURP Normocytic anemia Monitor CBC daily. Follow trends. No indication for transfusion of blood products at this time. ID: UTI Monitor for signs and symptomatology infection Start zosyn. FEN: Acute Hypomagnesia Acute hypokalemia Acute hypocalcemia Replace electrolytes per ICU electrolyte protocol Receiving 4 g mag sulfate IV x1 now. Received 20 mg potassium IV in ED. Receiving 0.5 g calcium chloride IV x1 now. Phosphorus pending MSK: PT evaluate and treat access - -Left subclavian CVL day #1 placed 05/03 Prophylaxis -GI -pantoprazole -DVT -SCD/heparin subcu Admission 35 minutes critical care time
[2018-05-03 18:04] LABS: ABG Base Excess -2.2 mmol/L (-2-2); ABG PCO2 29 mmHg (38-42); ABG PO2 155 mmHg (61-120)
[2018-05-03] MEDS: Insulin NovoLOG Aspart Correctional Sugar Inj SQ SCH (18:15)
[2018-05-03 18:19] LABS: Phosphorus 0.4 mg/dL (2.5-4.9)
--- NOTE | 2018-05-03 18:35 | XR ---
EXAM DATE: 05/03/2018 5:33 PM EDT AGE/SEX: 78 years / Male INDICATIONS: Left side central line placement. CLINICAL DATA: This is the patient's initial encounter. Patient reports that signs and symptoms have been present for 1 day and indicates a pain score of Nonresponsive. MEDICAL/SURGICAL HISTORY: Non-responsive. Non-responsive. COMPARISON: [facility], CHEST SINGLE AP, 09/29/2017. . FINDINGS: Endotracheal tube tip is well above the wood. Left subclavian catheter tip is at the cavoatrial connor ction. The lungs are symmetrically aerated. No infiltrates seen. The heart is normal in size. Both he midiaphragms well delineated. In the lateral left chest, there is a lucent interfaces which extends f rom the upper chest down into the left upper quadrant. Since this lucency extends beyond the chest, a pleural reflection is less likely. CONCLUSION: 1. ET tube in good position 2. There is a lucent reflection in the left chest which could represent a pneumothorax, but appears to extend into the upper abdomen suggesting and may represent a skinfold or something extrinsic to th e patient. Recommend performing an expiratory view of the chest for further evaluation. Electronically signed by: Keven Courtney MD 05/03/2018 6:33 PM EDT
[2018-05-03 18:48] LABS: CKMB Percent 1.1 % (0.0-4.0); Creatine Kinase MB 3.9 ng/mL (0.5-3.6)
[2018-05-03] MEDS ORDERED: levETIRAcetam 1000mg/100mL Inj 100 ML IV.SIG ONE (19:15)
[2018-05-03] MEDS ORDERED: CALCIUM CHLORIDE IV.SIG ONE (20:00)
[2018-05-03] MEDS ORDERED: SODIUM CHLOR 0.9% IV.SIG ONE (20:00)
[2018-05-03] MEDS: Chlorhexidine 0.12% Oral Kit 15 ML UDC OROPHARYNG SCH (20:13)
[2018-05-03] MEDS: Carboxymethylcellulose 0.5% Opth Drops 15 ML Bottle EACH EYE SCH (20:27)
[2018-05-03] MEDS: Senna/Docusate Sodium 8.6/50 MG Tablet PO SCH (20:27)
[2018-05-03] MEDS: Heparin - SQ 10,000 UNITS/ML Vial SQ SCH (20:27)
[2018-05-03] MEDS: Piperacil/Tazo 4.5 GM Premix 4.5 GM/100 ML BAG IV.SIG SCH (20:28)
[2018-05-03] MEDS ORDERED: Magnesium Sulfate Inj 4 GM in Dextrose 5% in Water Inj 100 ML IV.SIG ONE ×2 (20:30)
[2018-05-03] MEDS ORDERED: Senna/Docusate Sodium 8.6/50 MG Tablet PO SCH (21:00)
[2018-05-03] MEDS ORDERED: Diatrizoate Meglum/Diatrizoate Sod Liq 9 ML UDC PO ONE (21:15)
[2018-05-03 21:36] LABS: Calcium 6.8 mg/dL (8.5-10.1); Carbon Dioxide 25.1 meq/L (21.0-32.0); Magnesium 1.2 mg/dL (1.5-2.5); Troponin I 0.07 ng/mL (0.02-0.05)
[2018-05-03 21:39] LABS: Potassium 2.7 meq/L (3.5-5.1)
[2018-05-03 21:53] LABS: Total Protein 6.7 g/dL (6.4-8.2)
--- NOTE | 2018-05-03 22:04 | ECG ---
Date Performed: 05/03/2018 Time Performed: 09:59:29 PTAGE: 78 years EKG: Sinus rhythm NORMAL ECG PREVIOUS TRACING : 09/30/2017 13.32 Compared to previous tracing, no ST changes present DOCTOR: Nivia Gilbert Interpretating Date/Time 05/03/2018 22:03:09
[2018-05-03] MEDS: Potassium Chlor 40 mEq Premix 40 MEQ/100 ML PIGGYBACK IV.SIG PRN (22:26)
[2018-05-04] MEDS: Dextrose 50% in Water 50 ML Vial IV.PUSH PRN ×2 (00:25→06:17)
[2018-05-04 00:38] LABS: Amphetamine Screen,Urine Neg (Neg); Barbiturate Screen,Urine Neg (Neg); Cannabinoid Screen,Urine Neg (Neg); Cocaine Screen,Urine Pos (Neg)
[2018-05-04 00:39] LABS: Opiate Screen,Urine Neg (Neg)
--- NOTE | 2018-05-04 01:31 | CT ---
EXAM DATE: 05/04/2018 12:00 AM EDT AGE/SEX: 78 years / Male INDICATIONS: Abdominal pain, diarrhea. CLINICAL DATA: This is the patient's initial encounter. Patient reports that signs and symptoms have been present for 1 day and indicates a pain score of Nonresponsive. MEDICAL/SURGICAL HISTORY: Hypertension. Carcinoma, prostatic. Gastroesophageal reflux disease . BPH. TIA. . Cystoscopy. TURP. RADIATION DOSE: 5.32 CTDI (mGy) [place] [facility] [place], [place]2017. [facility] [place] W CONTRA ST, 04/24/2017. . TECHNIQUE: Multiple contiguous axial images were obtained through the abdomen. Images were obtained using multiple row detector helical technique. Using automated exposure control and adjustment of the mA and/or kV according to patient size, radiation dose was kept as low as reasonably achievable to o btain optimal diagnostic quality images. DICOM format image data is available electronically for rev iew and comparison. FINDINGS: Thick-walled urinary bladder again seen. A Buchanan catheter is present. No obstruction or acute inflammatory changes are seen of the gastrointestinal tract. There is questio nable wall thickening of the stomach, especially greater curvature of the body region, for example se lucian 2 image 25. Small hiatal hernia present. Nasogastric tube has its tip in the stomach; stomach is mildly distended Noncontrast appearance of the liver, spleen, pancreas and kidneys within normal limits. Mild fullness of both adrenal glands is unchanged. Multiple small gallstones are again evident in the region of the neck without significant change. Mild body wall edema/anasarca. Tiny effusions and mild atelectasis of the visualized lung bases. No acute bony abnormality demonstrated. CONCLUSION: 1. Thick walled urinary bladder with a Buchanan catheter. Similar findings were seen on the prior 2 joe dies. 2. No obstruction or acute inflammatory changes are seen of the gastrointestinal tract. 3. Mildly distended stomach despite presence of nasogastric tube. There is questionable wall thicken ing, especially greater curvature of the body. This is nonspecific. Chronic hiatal hernia. 4. Cholelithiasis again demonstrated. No associated inflammatory changes are seen. No duct stone or ductal dilatation. 5. Small effusions of the visualized lung bases and mild body wall edema/anasarca. 6. Mild bibasilar atelectasis. Electronically signed by: Rodriguez Donald MD 05/04/2018 1:30 AM EDT
[2018-05-04] MEDS: Insulin NovoLOG Aspart Correctional Sugar Inj SQ SCH ×6 (02:51→23:17)
[2018-05-04] MEDS: Multivitamin Inj 10 ML, Thiamine Inj 100 MG, Folic Acid Inj 1 MG in Sodium Chlor 0.9% I... IV.SIG SCH ×2 (02:52→23:17)
[2018-05-04] MEDS: Oral Hygiene Kit OROPHARYNG SCH ×5 (02:52→23:18)
[2018-05-04] MEDS: Piperacil/Tazo 4.5 GM Premix 4.5 GM/100 ML BAG IV.SIG SCH ×4 (03:00→20:06)
[2018-05-04] MEDS ORDERED: Chlorhexidine Gluconate 2% 1 Pack (2 Cloths) TOPICAL PRN (04:00)
[2018-05-04] MEDS: Propofol 1000 mg/100 ml Inj 1,000 MG/100 ML BOTTLE IV.CONT PRN ×4 (04:49→20:09)
[2018-05-04 05:32] LABS: Baso % (Auto) 0.7 % (0.0-2.0); Eos # (Auto) 0.1 th/mm3 (0.0-0.4); Hematocrit 31.5 % (39.0-51.0); Hemoglobin 10.5 gm/dL (13.0-17.0); Lymph % (Auto) 16.3 % (9.0-44.0); Mean Corpuscular HGB Conc 33.2 % (32.0-36.0); Mean Corpuscular Hemoglobin 30.9 pg (27.0-34.0); Mean Corpuscular Volume 93.1 fL (80.0-100.0); Mean Platelet Volume 7.9 fL (7.0-11.0); Mono # (Auto) 0.3 th/mm3 (0.0-0.9); Mono % (Auto) 5.4 % (0.0-8.0); Neut # (Auto) 4.8 th/mm3 (1.8-7.7); Neut % (Auto) 76.6 % (16.0-70.0); Platelet Count 165 th/mm3 (150-450); Red Blood Count 3.38 mil/mm3 (4.50-5.90); Red Cell Distribution Width 13.9 % (11.6-17.2); White Blood Count 6.3 th/mm3 (4.0-11.0)
[2018-05-04 05:36] LABS: Activated Partial Thrombo Time 31.7 sec (24.3-30.1); INR 1.2 Ratio; Prothrombin Time 11.7 sec (9.8-11.6)
[2018-05-04] MEDS: Chlorhexidine Gluconate 2% 1 Pack (2 Cloths) TOPICAL SCH (06:07)
[2018-05-04] MEDS: Potassium Chlor 40 mEq Premix 40 MEQ/100 ML PIGGYBACK IV.SIG PRN ×2 (07:08→10:21)
[2018-05-04] MEDS ORDERED: KCL 20 mEq/D5W/NaCl 0.45% Inj 1,000 ML IV.CONT SCH (08:30)
--- NOTE | 2018-05-04 08:35 | P.PNCC ---
Subjective Subjective Remarks/Hospital Course: This is a 78-year-old -[place] male. Date of admission 05/03/2018. Past medical history includes history of cocaine, THC, alcohol abuse, history of TIA, gastroparesis, hypertension, BPH, prostate cancer status post TURP. Patient self caths. History of hypomagnesia. [id number] with history of hypertension presents to the emergency department for evaluation of weakness for 6 months. He says that he was in this emergency department approximately 6 months ago and since then, he has felt weak. He says that he has had poor oral intake and is 'almost homeless'. Reported no abdominal symptoms including diarrhea, nausea or vomiting per Patient had a essentially negative CT of the brain. When laboratories returned , was noted to have a magnesium 0.4. Potassium 3.1. Calcium 7.4. Elevated ammonia level. Patient received potassium. When the patient about received magnesium, patient had a witnessed seizure. Fell in the form struck it. Became more acutely confused required intubation. Repeat brain CT revealed no acute findings. EKG revealed no prolonged QTc interval. Currently receiving 4 g mag sulfate IV x1 now. 05/04 Patient is sedated with Diprivan and intubated. Afebrile. Hypoglycemic overnight with BC 49 given 1 amp D50, afebrile. Objective Vital Signs / I&O: Vital Signs 05/03/18 09:55 05/03/18 11:00 05/03/18 12:40 Temperature 98.2 F Pulse Rate 76 61 120 H Respiratory Rate 20 18 20 Blood Pressure 202/117 H 191/99 H 184/97 H Pulse Oximetry 97 96 98 05/03/18 13:40 05/03/18 14:40 05/03/18 15:30 Temperature Pulse Rate 106 H 120 H 112 H Respiratory Rate 20 22 22 Blood Pressure 167/101 H 195/104 H 184/93 H Pulse Oximetry 96 98 98 05/03/18 16:57 05/03/18 17:00 05/03/18 17:04 Temperature Pulse Rate 155 H 117 H Respiratory Rate 22 14 14 Blood Pressure 201/112 H 199/125 H Pulse Oximetry 99 100 99 05/03/18 17:30 05/03/18 18:00 05/03/18 19:56 Temperature Pulse Rate 108 H 92 H Respiratory Rate 14 14 15 Blood Pressure 233/117 H 144/69 H Pulse Oximetry 100 95 100 05/03/18 20:00 05/03/18 21:08 05/03/18 21:30 Temperature Pulse Rate 96 H 88 88 Respiratory Rate 9 L 8 L Blood Pressure 133/83 Pulse Oximetry 100 100 05/03/18 22:00 05/03/18 22:30 05/03/18 23:00 Temperature Pulse Rate 86 84 83 Respiratory Rate 7 L 14 15 Blood Pressure 143/90 H 139/84 131/81 Pulse Oximetry 100 100 100 05/03/18 23:30 05/03/18 23:47 05/04/18 00:00 Temperature 97.9 F Pulse Rate 80 79 Respiratory Rate 15 14 15 Blood Pressure 129/80 132/81 Pulse Oximetry 100 100 100 05/04/18 00:10 05/04/18 00:30 05/04/18 01:00 Temperature Pulse Rate 80 79 88 Respiratory Rate 14 14 31 H Blood Pressure 132/81 155/91 H 156/86 H Pulse Oximetry 100 100 62 L 05/04/18 01:23 05/04/18 01:30 05/04/18 02:00 Temperature Pulse Rate 90 91 H 88 Respiratory Rate 16 17 14 Blood Pressure 162/92 H 165/85 H 133/81 Pulse Oximetry 100 100 05/04/18 02:30 05/04/18 03:00 05/04/18 03:30 Temperature Pulse Rate 88 86 80 Respiratory Rate 14 14 14 Blood Pressure 116/76 113/70 139/79 Pulse Oximetry 100 100 96 05/04/18 04:00 05/04/18 04:29 05/04/18 04:30 Temperature 97.7 F Pulse Rate 80 79 78 Respiratory Rate 14 14 14 Blood Pressure 139/92 H 142/85 H Pulse Oximetry 95 95 05/04/18 05:00 05/04/18 05:30 05/04/18 06:00 Temperature Pulse Rate 80 78 80 Respiratory Rate 19 14 14 Blood Pressure 119/74 145/92 H 160/94 H Pulse Oximetry 100 100 05/04/18 06:30 05/04/18 07:39 Temperature Pulse Rate 80 79 Respiratory Rate 26 H 14 Blood Pressure 148/75 H Pulse Oximetry Intake & Output 05/03/18 05/04/18 05/04/18 18:59 06:59 18:59 Intake Total 2201 / 2201 1143 / 1143 511.2 / 511.2 Output Total 700 / 700 1500 / 1500 Balance 1501 / 1501 -357 / -357 511.2 / 511.2 Weight 56.699 kg 57.5 kg Intake: IV 2200 1023 / 1023 511.2 / 511.2 Diprivan 1000 mg/100 ml Inj 1, 200 / 200 000 mg In 100 ml @ 5 MCG/KG/MIN 1.701 mls/hr IV.CONT TITRATE PRN Rx#:[id number] Calcium Chloride Inj 0.5 GM In 55 / 55 NS Inj 50 ML @ 220 mls/hr IV. SIG ONCE ONE Rx#:[id number] Magnesium Sulfate Inj 4 GM In 108 / 108 D5W Inj 100 ML @ 25 mls/hr IV. SIG ONCE ONE Rx#:[id number] MVI-12 Inj 10 ML Thiamine Inj 511.2 / 511.2 100 MG Folvite Inj 1 MG In NS Inj 500 ML @ 125 mls/hr IV.SIG Q24H MATTEO Rx#:[id number] Zosyn 4.5 GM Premix 4.5 gm In 200 / 200 100 ml @ 200 mls/hr IV.SIG Q6H MATTEO Rx#:[id number] KCl 20 mEq Premix Inj 20 meq In 100 / 100 100 ml @ 50 mls/hr IV.SIG ONCE ONE Rx#:[id number] KCl 40 mEq Premix Inj 40 meq In 100 / 100 100 ml @ 25 mls/hr IV.SIG Q4H PRN Rx#:[id number] NS Inj 1,000 ML @ Wide Open IV. 1999 SIG BOLUS MATTEO Rx#:[id number] Sodium Phosphate Inj 30 MMOL In 260 / 260 NS Inj 250 ML @ 42 mls/hr IV. SIG UNSCH PRN Rx#:[id number] Thiamine Inj 100 MG In NS Inj 101 / 101 100 ML @ 100 mls/hr IV.SIG ONCE ONE Rx#:[id number] Water Bolus Amount 120 / 120 Output: Urine 700 / 700 Urine Amount (Catheter) 1500 / 1500 Indwelling Urethral Catheter 1500 / 1500 Other: Date of Last Bowel Movement 05/04/18 # Bowel Movements 2 Weight On Admission 55 kg Result Diagrams: 05/04/18 05:08 05/04/18 06:30 Other Results: Laboratory Results - last 12 hr 05/03/18 05/03/18 05/03/18 00:00 19:30 20:30 WBC RBC Hgb Hct MCV MCH MCHC RDW Plt Count MPV Neut % (Auto) Lymph % (Auto) [place] % (Auto) Eos % (Auto) Baso % (Auto) Neut # (Auto) Lymph # (Auto) [place] # (Auto) Eos # (Auto) Baso # (Auto) WBC Differential Differential Comment PT INR APTT Sodium 145 Potassium 2.7 L* Chloride 111 H Carbon Dioxide 25.1 Anion Gap 9 BUN 11 Creatinine 1.03 Estimated GFR 85 L POC Glucose Random Glucose 86 Lactic Acid Calcium 6.8 L* Prot Corrected Calcium 7.0 L* Magnesium 1.2 L D Ammonia Troponin I 0.07 H Total Protein 6.7 D Nasal Screen MRSA (PCR) Not detected Urine Opiates Screen Neg Ur Barbiturates Screen Neg Ur Amphetamines Screen Neg U Benzodiazepines Scrn Neg Urine Cocaine Screen Pos H U Cannabinoids Screen Neg 05/04/18 05/04/18 05/04/18 00:22 00:47 05:08 WBC 6.3 RBC 3.38 L Hgb 10.5 L Hct 31.5 L MCV 93.1 MCH 30.9 MCHC 33.2 RDW 13.9 Plt Count 165 MPV 7.9 Neut % (Auto) 76.6 H Lymph % (Auto) 16.3 [place] % (Auto) 5.4 Eos % (Auto) 1.0 Baso % (Auto) 0.7 Neut # (Auto) 4.8 Lymph # (Auto) 1.0 [place] # (Auto) 0.3 Eos # (Auto) 0.1 Baso # (Auto) 0.0 WBC Differential . Differential Comment Auto diff final PT INR APTT Sodium Potassium Chloride Carbon Dioxide Anion Gap BUN Creatinine Estimated GFR POC Glucose 51 L 87 Random Glucose Lactic Acid Calcium Prot Corrected Calcium Magnesium Ammonia Troponin I Total Protein Nasal Screen MRSA (PCR) Urine Opiates Screen Ur Barbiturates Screen Ur Amphetamines Screen U Benzodiazepines Scrn Urine Cocaine Screen U Cannabinoids Screen 05/04/18 05/04/18 05/04/18 05:08 05:08 05:08 WBC RBC Hgb Hct MCV MCH MCHC RDW Plt Count MPV Neut % (Auto) Lymph % (Auto) [place] % (Auto) Eos % (Auto) Baso % (Auto) Neut # (Auto) Lymph # (Auto) [place] # (Auto) Eos # (Auto) Baso # (Auto) WBC Differential Differential Comment PT 11.7 H INR 1.2 APTT 31.7 H Sodium Potassium Chloride Carbon Dioxide Anion Gap BUN Creatinine Estimated GFR POC Glucose Random Glucose Lactic Acid 1.1 Calcium Prot Corrected Calcium Magnesium Ammonia 24 Troponin I Total Protein Nasal Screen MRSA (PCR) Urine Opiates Screen Ur Barbiturates Screen Ur Amphetamines Screen U Benzodiazepines Scrn Urine Cocaine Screen U Cannabinoids Screen 05/04/18 05/04/18 05/04/18 06:15 06:30 06:35 WBC RBC Hgb Hct MCV MCH MCHC RDW Plt Count MPV Neut % (Auto) Lymph % (Auto) [place] % (Auto) Eos % (Auto) Baso % (Auto) Neut # (Auto) Lymph # (Auto) [place] # (Auto) Eos # (Auto) Baso # (Auto) WBC Differential Differential Comment PT INR APTT Sodium Potassium Chloride Carbon Dioxide Anion Gap BUN Creatinine Estimated GFR POC Glucose 49 L* 63 L Random Glucose 79 Lactic Acid Calcium Prot Corrected Calcium Magnesium Ammonia Troponin I Total Protein Nasal Screen MRSA (PCR) Urine Opiates Screen Ur Barbiturates Screen Ur Amphetamines Screen U Benzodiazepines Scrn Urine Cocaine Screen U Cannabinoids Screen 05/04/18 06:49 WBC RBC Hgb Hct MCV MCH MCHC RDW Plt Count MPV Neut % (Auto) Lymph % (Auto) [place] % (Auto) Eos % (Auto) Baso % (Auto) Neut # (Auto) Lymph # (Auto) [place] # (Auto) Eos # (Auto) Baso # (Auto) WBC Differential Differential Comment PT INR APTT Sodium Potassium Chloride Carbon Dioxide Anion Gap BUN Creatinine Estimated GFR POC Glucose 88 Random Glucose Lactic Acid Calcium Prot Corrected Calcium Magnesium Ammonia Troponin I Total Protein Nasal Screen MRSA (PCR) Urine Opiates Screen Ur Barbiturates Screen Ur Amphetamines Screen U Benzodiazepines Scrn Urine Cocaine Screen U Cannabinoids Screen Imaging: Cervical Spine CT 05/03/18 12:37 CONCLUSION: 1. 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 2. No acute cervical spine fracture identified. Head CT 05/03/18 12:37 CONCLUSION: 1. Microvascular ischemic demyelinative change. No acute intracranial abnormality identified. . Chest X-Ray 05/03/18 17:33 CONCLUSION: 1. ET tube in good position 2. There is a lucent reflection in the left chest which could represent a pneumothorax, but appears to extend into the upper abdomen suggesting and may represent a skinfold or something extrinsic to the patient. Recommend performing an expiratory view of the chest for further evaluation. Abdomen/Pelvis CT 05/04/18 00:00 CONCLUSION: 1. Thick walled urinary bladder with a Buchanan catheter. Similar findings were seen on the prior 2 studies. 2. No obstruction or acute inflammatory changes are seen of the gastrointestinal tract. 3. Mildly distended stomach despite presence of nasogastric tube. There is questionable wall thickening, especially greater curvature of the body. This is nonspecific. Chronic hiatal hernia. 4. Cholelithiasis again demonstrated. No associated inflammatory changes are seen. No duct stone or ductal dilatation. 5. Small effusions of the visualized lung bases and mild body wall edema/ anasarca. 6. Mild bibasilar atelectasis. Assessment and Plan - Assessment and Plan Plan: Neuro/Psych: Seizure -likely secondary to hypomagnesia Acute CVA History of cocaine, THC and alcohol abuse Currently on propofol for sedation while intubated Goal of RASS -[address] brain negative for acute findings x2. MRI brain ordered. EEG ordered. Seizure precautions Vitamin bag daily times 3 days including thiamine, folate and multivitamin Monitor for DTs Urine drug screen + Cocaine Levetiracetam 1 g followed by 500 mg twice daily CV: Sinus tachycardia Essential hypertension Mild elevated trop Monitor HR and BP keep MAP>65mmHg Monitor CK/trop, check 2D echo to eval LV function Lactic acid 1.1 Resp: Acute respiratory failure [facility] 14/500/08/11/39 Ventilator bundle Albuterol/ipratropium aerosols every 4 hours with albuterol aerosols every 2 hours as needed for dyspnea Spontaneous breathing trials when clinically indicated Check CXR GI: Gastroesophageal reflux disease Elevated ammonia Pantoprazole for GI prophylaxis Start tube feeds today if remains intubated Docusate serum/senna 1 tablet twice daily for bowel regimen Lactulose 30 cc twice daily for elevated ammonia. Recheck in a.m. CT abdomen/pelvis: Thick walled urinary bladder with a Buchanan catheter. Similar findings were seen on the prior 2 studies. No obstruction or acute inflammatory changes are seen of the GI tract. Mildly distended stomach despite presence of nasogastric tube. ? wall thickening, especially greater curvature of the body. This is nonspecific. Chronic hiatal hernia. Cholelithiasis again demonstrated. No associated inflammatory changes are seen. No duct stone or ductal dilatation. : Electrolytes imbalance (hypokalemia, hypocalcemia, hypomag, hypophos) History of BPH Monitor renal function, I/O's, electrolytes replacement per protocol. 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 Follow trends. No indication for transfusion of blood products at this time. ID: [id number] Monitor for signs and symptomatology infection Continue Zosyn and monitor for signs of infections ( Fever, WBC) follow up on blood and urine cxs Influenza screening pending. MSK: PT evaluate and treat access - -Left subclavian CVL placed 05/03 Prophylaxis -GI -pantoprazole -DVT -SCD/heparin subcu Level 3
--- NOTE | 2018-05-04 09:28 | XR ---
EXAM DATE: 05/04/2018 8:20 AM EDT AGE/SEX: 78 years / Male INDICATIONS: Shortness of breath. CLINICAL DATA: This is the patient's subsequent encounter. Patient reports that signs and symptoms h ave been present for 4 - 6 days and indicates a pain score of Nonresponsive. MEDICAL/SURGICAL HISTORY: Non-responsive. Non-responsive. COMPARISON: [facility] – [place], CT ABDOMEN & PELVIS W/O CONTRAST, 05/04/2018. . FINDINGS: Stable ETT and left subclavian central line. Interval placement of NGT with tip in the fundus of the stomach. There is a persistent lucency along the left lateral chest wall. Interval CT exam does not d emonstrate a pneumothorax in this region. Minimal bibasilar airspace disease. Cardiomegaly mediastina l contours are within normal limits. Bony thorax is intact. CONCLUSION: 1. Tubes and lines, as above. 2. Minimal bibasilar airspace disease, likely atelectasis. Electronically signed by: Sg López MD 05/04/2018 9:27 AM EDT
[2018-05-04] MEDS: Senna/Docusate Sodium 8.6/50 MG Tablet PO SCH ×2 (10:12→20:09)
[2018-05-04] MEDS: Pantoprazole Inj 40 MG Vial IV.PUSH SCH (10:16)
[2018-05-04] MEDS: Carboxymethylcellulose 0.5% Opth Drops 15 ML Bottle EACH EYE SCH ×2 (10:16→20:09)
--- NOTE | 2018-05-04 11:53 | P.DIET ---
Nutritional Evaluation Type of nutrition evaluation: initial Nutrition consult regarding: Tube Feeding Objective - Diagnosis Hypomagnesia - Objective Body Mass Index: 19.9 % IBW: 85 (IBW = 148#) Body Weight Used for Calculations: Actual (57.5 kg) Energy Needs - Lower Range (kCal/kg): 30 Energy Needs - Upper Range (kCal/kg): 35 Lower Limit kCal/kg (kCals): 1,725 Upper Limit kCal/kg (kCals): 2,013 Lower Limit Protein Factor (Grams per Kg): 1.2 Upper Limit Protein Factor (Grams per Kg): 1.6 Lower Protein Needs (Protein): 69 Upper Protein Needs (Protein): 92 Dietitian Reviewed in Medical Record: Curent medications, Intake & Output, Labs , Medical history, Tube feeding Assessment Assessment: Pt is vented/sedated and needs TFing to meet nutritional needs. Current order is for Glucerna 1.5 @ 45 mls/hr goal. Recommend Jevity 1.5 @ 50 mls/hr to provide 1800 kcals, 77 gms protein and 912 mls of free water. Some additional kcals will be provided by propofol (1.1 kcal/ml). Recommendations: Jevity 1.5 @ 50 mls/hr goal Dietitian to Monitor: Lab values, Intake & Output, Tube feeding tolerance, Weight change, Medical course
[2018-05-04 13:08] LABS: Albumin 2.6 g/dL (3.4-5.0); Calcium 6.8 mg/dL (8.5-10.1); Carbon Dioxide 23.4 meq/L (21.0-32.0); Phosphorus 2.7 mg/dL (2.5-4.9); Potassium 3.6 meq/L (3.5-5.1); Thyroid Stimulating Hormone 0.268 uIU/mL (0.358-3.740); Total Protein 6.3 g/dL (6.4-8.2); Troponin I 0.04 ng/mL (0.02-0.05)
--- NOTE | 2018-05-04 13:12 | ECHRPT ---
Indication: Heart Failure CONCLUSIONS The left ventricular systolic function is normal with an estimated ejection fraction in the range of 55-60%. Normal left ventricular size and wall thickness. No regional wall motion abnormalities. Grade 2 Diastolic Dysfunction. There is mild tricuspid valve regurgitation. The estimated pulmonary arterial pressure is 50 mmHg. The IVC is normal size with less than 50% collapse with inspiration. BP: / HR: Rhythm: MEASUREMENTS (Male / Female) Normal Values Technical Quality:Technically difficult study 2D ECHO LV Diastolic Diameter PLAX 3.6 cm 4.2 - 5.9 / 3.9 - 5.3 cm LV Systolic Diameter PLAX 2.4 cm IVS Diastolic Thickness 1.1 cm 0.6 - 1.0 / 0.6 - 0.9 cm LVPW Diastolic Thickness 1.0 cm 0.6 - 1.0 / 0.6 - 0.9 cm LV Relative Wall Thickness 0.6 RV Internal Dim ED PLAX 3.1 cm LVOT Diameter 1.9 cm Aortic Root Diameter 3.3 cm LA Systolic Diameter LX 2.2 cm 3.0 - 4.0 / 2.7 - 3.8 cm DOPPLER AV Peak Velocity 96.4 cm/s AV Peak Gradient 3.7 mmHg LVOT Peak Velocity 53.8 cm/s LVOT Peak Gradient 1.2 mmHg AV Area Cont Eq pk 1.6 cm Mitral E Point Velocity 73.1 cm/s Mitral A Point Velocity 66.1 cm/s Mitral E to A Ratio 1.1 LV E' Lateral Velocity 7.7 cm/s Mitral E to LV E' Lateral Ratio 9.5 LV E' Septal Velocity 7.5 cm/s Mitral E to LV E' Septal Ratio 9.7 TR Peak Velocity 297.0 cm/s TR Peak Gradient 35.3 mmHg Right Atrial Pressure 10.0 mmHg Pulmonary Artery Systolic Pressu 45.3 mmHg Right Ventricular Systolic Press 45.3 mmHg PV Peak Velocity 81.4 cm/s PV Peak Gradient 2.7 mmHg FINDINGS LEFT VENTRICLE Normal left ventricular size. Wall thickness is normal. The left ventricular systolic function is normal with an estimated ejection fraction in the range of 55-60%. RIGHT VENTRICLE Normal right ventricular size and systolic function. LEFT ATRIUM The left atrial size is normal. RIGHT ATRIUM The right atrial size is normal. ATRIAL SEPTUM Normal atrial septal thickness without atrial level shunting by limited color doppler interrogation. AORTA The aortic root and proximal ascending aorta are normal in size on limited imaging. MITRAL VALVE Trace mitral valve regurgitation. AORTIC VALVE Trileaflet aortic valve. TRICUSPID VALVE There is mild tricuspid valve regurgitation. The estimated pulmonary arterial pressure is 50 mmHg. PULMONARY VALVE No pulmonary valve regurgitation or stenosis. VESSELS The inferior vena cava is normal in size with reduced inspiratory collapse. PERICARDIUM No pericardial effusion. Jose Oquendo MD (Electronically Signed) Final Date:04 May 2018 13:11
--- NOTE | 2018-05-04 15:53 | ECG ---
Date Performed: 05/03/2018 Time Performed: 17:09:58 PTAGE: 78 years EKG: SINUS TACHYCARDIA WITH SHORT CT INTERVAL ST DEPRESSION, CONSIDER SUBENDOCARDIAL INJURY ABNO RMAL ECG PREVIOUS TRACING : 05/03/2018 09.59 Compared to previous tracing, the Sinus tachycardia and the diffuse ST segment changes are new. Clinical correlation is recommended to exclude Myocardial ischem ia. The patient has prominent P-wave consistent with acute right atrial strain. Pulmonary embolus and other exacerbations of other pulmonary disease should be excluded clinically DOCTOR: Romelia Teran Interpretating Date/Time 05/04/2018 15:52:31
[2018-05-04] MEDS: Heparin - SQ 10,000 UNITS/ML Vial SQ SCH ×2 (17:30→20:06)
[2018-05-04] MEDS: Chlorhexidine 0.12% Oral Kit 15 ML UDC OROPHARYNG SCH ×2 (17:30→20:06)
--- NOTE | 2018-05-04 20:11 | MG ---
cc: Isai Vasquez MD ELECTROENCEPHALOGRAM NUMBER: [id number] INDICATION: Alcohol abuse, cocaine. MEDICATIONS: Thiamine. DESCRIPTION: Diffuse alpha and beta rhythms are noted. Recording overall is synchronous and symmetric. No hemisphere asymmetries are noted. No epileptiform or seizure activity is seen. A lot of muscle artifact is seen bitemporally at times. Hyperventilation not performed. Photic stimulation is performed without any posterior driving. IMPRESSION: Normal awake electroencephalogram. No evidence for a focal or diffuse abnormality. MD FLORENCIA Luna/angelo , 07:13 PM , 07:17 PM
--- NOTE | 2018-05-04 21:51 | MR ---
EXAM DATE: 05/04/2018 2:12 PM EDT AGE/SEX: 78 years / Male INDICATIONS: Seizures. CLINICAL DATA: This is the patient's initial encounter. Patient reports that signs and symptoms have been present for 1 day and indicates a pain score of 0/10. MEDICAL/SURGICAL HISTORY: Hypertension. Carcinoma, prostatic. . TURP COMPARISON: No prior exams available for comparison. TECHNIQUE: Multiplanar, multisequence examination of the brain was performed without contrast. FINDINGS: No intracranial mass or midline shift. Moderate to severe chronic white matter ischemic change. No re cent infarct on the diffusion-weighted images. Cortical volume loss present. No sellar mass. Retentio n cyst and mucosal thickening right maxillary sinus. Mucosal thickening ethmoid air cells and right f rontal sinus. CONCLUSION: 1. Moderate to severe chronic white matter ischemic changes. No recent infarct. 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 2. Sinus mucosal thickening. Electronically signed by: Giles Gardner MD 05/04/2018 9:50 PM EDT
[2018-05-05] MEDS: Piperacil/Tazo 4.5 GM Premix 4.5 GM/100 ML BAG IV.SIG SCH ×4 (03:00→20:37)
[2018-05-05] MEDS: Chlorhexidine Gluconate 2% 1 Pack (2 Cloths) TOPICAL SCH (03:01)
[2018-05-05] MEDS: Oral Hygiene Kit OROPHARYNG SCH ×3 (03:01→18:27)
[2018-05-05] MEDS: Propofol 1000 mg/100 ml Inj 1,000 MG/100 ML BOTTLE IV.CONT PRN ×2 (03:02→21:02)
[2018-05-05 04:22] LABS: Baso % (Auto) 0.6 % (0.0-2.0); Eos # (Auto) 0.2 th/mm3 (0.0-0.4); Eos % (Auto) 3.3 % (0.0-4.0); Hematocrit 31.9 % (39.0-51.0); Hemoglobin 10.5 gm/dL (13.0-17.0); Lymph # (Auto) 0.9 th/mm3 (1.0-4.8); Lymph % (Auto) 15.6 % (9.0-44.0); Mean Corpuscular HGB Conc 32.9 % (32.0-36.0); Mean Corpuscular Hemoglobin 30.9 pg (27.0-34.0); Mean Corpuscular Volume 94.1 fL (80.0-100.0); Mono # (Auto) 0.3 th/mm3 (0.0-0.9); Mono % (Auto) 5.3 % (0.0-8.0); Neut # (Auto) 4.3 th/mm3 (1.8-7.7); Neut % (Auto) 75.2 % (16.0-70.0); Platelet Count 158 th/mm3 (150-450); Red Blood Count 3.39 mil/mm3 (4.50-5.90); Red Cell Distribution Width 14.1 % (11.6-17.2); White Blood Count 5.7 th/mm3 (4.0-11.0)
[2018-05-05 04:50] LABS: Albumin 2.5 g/dL (3.4-5.0); Calcium 7.2 mg/dL (8.5-10.1); Carbon Dioxide 23.1 meq/L (21.0-32.0); Magnesium 1.9 mg/dL (1.5-2.5); Phosphorus 2.9 mg/dL (2.5-4.9); Potassium 3.6 meq/L (3.5-5.1); Total Protein 6.1 g/dL (6.4-8.2)
[2018-05-05] MEDS: Dextrose 50% in Water 50 ML Vial IV.PUSH PRN ×4 (05:14→12:15)
[2018-05-05] MEDS: Insulin NovoLOG Aspart Correctional Sugar Inj SQ SCH ×8 (05:14→22:06)
--- NOTE | 2018-05-05 07:19 | P.PNCC ---
Subjective Subjective Remarks/Hospital Course: This is a 78-year-old -[place] male. Date of admission 05/03/2018. Past medical history includes history of cocaine, THC, alcohol abuse, history of TIA, gastroparesis, hypertension, BPH, prostate cancer status post TURP. Patient self caths. History of hypomagnesia. [facility] with history of hypertension presents to the emergency department for evaluation of weakness for 6 months. He says that he was in this emergency department approximately 6 months ago and since then, he has felt weak. He says that he has had poor oral intake and is 'almost homeless'. Reported no abdominal symptoms including diarrhea, nausea or vomiting per Patient had a essentially negative CT of the brain. When laboratories returned , was noted to have a magnesium 0.4. Potassium 3.1. Calcium 7.4. Elevated ammonia level. Patient received potassium. When the patient about received magnesium, patient had a witnessed seizure. Fell in the form struck it. Became more acutely confused required intubation. Repeat brain CT revealed no acute findings. EKG revealed no prolonged QTc interval. Currently receiving 4 g mag sulfate IV x1 now. 05/04 Patient is sedated with Diprivan and intubated. Afebrile. Hypoglycemic overnight with BC 49 given 1 amp D50, afebrile. 05/05 Patient remains intubated and sedated with Diprivan, afebrile. MRI brain last night showed no acute findings. Hypoglycemic overnight given 1 amp D50 x2. Objective Vital Signs / I&O: Vital Signs 05/04/18 07:39 05/04/18 07:57 05/04/18 08:00 Temperature 98.7 F Pulse Rate 79 92 H 80 Respiratory Rate 14 15 Blood Pressure 121/53 L Pulse Oximetry 92 L 05/04/18 09:00 05/04/18 10:00 05/04/18 11:09 Temperature Pulse Rate 79 79 80 Respiratory Rate 14 14 14 Blood Pressure 131/80 115/81 Pulse Oximetry 95 100 05/04/18 11:30 05/04/18 11:57 05/04/18 12:00 Temperature 98.8 F Pulse Rate 89 81 Respiratory Rate 14 39 H Blood Pressure 154/91 H 106/51 L 141/100 H Pulse Oximetry 100 05/04/18 12:12 05/04/18 12:30 05/04/18 13:00 Temperature Pulse Rate 80 81 82 Respiratory Rate 21 21 20 Blood Pressure 136/96 H 113/86 118/86 Pulse Oximetry 100 100 100 05/04/18 13:30 05/04/18 14:00 05/04/18 14:30 Temperature Pulse Rate 81 82 82 Respiratory Rate 27 H 25 H 36 H Blood Pressure 121/87 136/83 143/87 H Pulse Oximetry 100 100 100 05/04/18 15:00 05/04/18 15:29 05/04/18 15:30 Temperature Pulse Rate 82 80 81 Respiratory Rate 27 H 14 35 H Blood Pressure 127/80 140/81 Pulse Oximetry 100 100 100 05/04/18 16:00 05/04/18 16:31 05/04/18 16:49 Temperature Pulse Rate 80 80 87 Respiratory Rate 31 H 53 H 15 Blood Pressure 136/85 164/67 H 162/88 H Pulse Oximetry 100 100 94 L 05/04/18 17:00 05/04/18 17:05 05/04/18 17:30 Temperature Pulse Rate 86 83 81 Respiratory Rate 17 15 15 Blood Pressure 184/89 H 164/91 H 150/85 H Pulse Oximetry 88 L 99 100 05/04/18 18:00 05/04/18 18:30 05/04/18 19:00 Temperature Pulse Rate 82 79 79 Respiratory Rate 15 13 14 Blood Pressure 134/97 H 142/74 H 146/92 H Pulse Oximetry 100 100 100 05/04/18 19:30 05/04/18 20:00 05/04/18 20:30 Temperature 96.5 F L Pulse Rate 79 87 Respiratory Rate 14 15 Blood Pressure 134/78 141/83 H Pulse Oximetry 100 100 99 05/04/18 20:38 05/04/18 21:17 05/04/18 21:26 Temperature Pulse Rate 79 96 H 90 Respiratory Rate 18 Blood Pressure 149/86 H 176/102 H Pulse Oximetry 100 05/04/18 21:29 05/04/18 21:35 05/04/18 22:00 Temperature Pulse Rate 84 81 80 Respiratory Rate 14 Blood Pressure 159/84 H 98/58 L Pulse Oximetry 100 05/04/18 23:00 05/04/18 23:22 05/05/18 00:00 Temperature 97.6 F Pulse Rate 78 76 87 Respiratory Rate 14 18 Blood Pressure 117/78 118/60 Pulse Oximetry 100 05/05/18 01:00 05/05/18 02:00 05/05/18 03:34 Temperature Pulse Rate 74 77 79 Respiratory Rate 14 16 Blood Pressure 113/66 Pulse Oximetry 100 100 Intake & Output 05/04/18 05/05/18 05/05/18 18:59 06:59 18:59 Intake Total 2216.2 / 2216.2 405 / 405 Balance 2216.2 / 2216.2 405 / 405 Intake: IV 2216.2 / 2216.2 405 / 405 NS + KCl 20 mEq Inj 1,000 ML @ 1000 / 1000 100 mls/hr IV.CONT .Q10H [facility] Rx #:[id number] Diprivan 1000 mg/100 ml Inj 1, 200 / 200 200 / 200 000 mg In 100 ml @ 5 MCG/KG/MIN 1.701 mls/hr IV.CONT TITRATE PRN Rx#:[id number] MVI-12 Inj 10 ML Thiamine Inj 511.2 / 511.2 100 MG Folvite Inj 1 MG In NS Inj 500 ML @ 125 mls/hr IV.SIG Q24H [facility] Rx#:[id number] Zosyn 4.5 GM Premix 4.5 gm In 200 / 200 100 / 100 100 ml @ 200 mls/hr IV.SIG Q6H [facility] Rx#:[id number] KCl 40 mEq Premix Inj 40 meq In 200 / 200 100 ml @ 25 mls/hr IV.SIG Q4H [facility]N Rx#:[id number] Keppra Inj 500 MG In NS Inj 100 105 / 105 105 / 105 ML @ 400 mls/hr IV.SIG Q12H [facility] Rx#:[id number] Other: Date of Last Bowel Movement 05/04/18 05/05/18 Result Diagrams: 05/05/18 03:13 05/05/18 03:13 Other Results: Laboratory Results - last 12 hr 05/04/18 05/04/18 05/05/18 19:51 23:14 03:13 WBC 5.7 RBC 3.39 L Hgb 10.5 L Hct 31.9 L MCV 94.1 MCH 30.9 MCHC 32.9 RDW 14.1 Plt Count 158 MPV 8.0 Neut % (Auto) 75.2 H Lymph % (Auto) 15.6 [place] % (Auto) 5.3 Eos % (Auto) 3.3 Baso % (Auto) 0.6 Neut # (Auto) 4.3 Lymph # (Auto) 0.9 L [place] # (Auto) 0.3 Eos # (Auto) 0.2 Baso # (Auto) 0.0 WBC Differential . Differential Comment Auto diff final Sodium Potassium Chloride Carbon Dioxide Anion Gap BUN Creatinine Estimated GFR POC Glucose 72 77 Random Glucose Calcium Prot Corrected Calcium Phosphorus Magnesium Total Bilirubin AST ALT Alkaline Phosphatase Total Protein Albumin 05/05/18 05/05/18 05/05/18 03:13 03:52 05:05 WBC RBC Hgb Hct MCV MCH MCHC RDW Plt Count MPV Neut % (Auto) Lymph % (Auto) [place] % (Auto) Eos % (Auto) Baso % (Auto) Neut # (Auto) Lymph # (Auto) [place] # (Auto) Eos # (Auto) Baso # (Auto) WBC Differential Differential Comment Sodium 149 H Potassium 3.6 Chloride 117 H Carbon Dioxide 23.1 Anion Gap 9 BUN 5 L Creatinine 1.25 Estimated GFR 68 L POC Glucose 62 L 47 L* Random Glucose 89 Calcium 7.2 L* Prot Corrected Calcium 7.7 L Phosphorus 2.9 Magnesium 1.9 Total Bilirubin 0.4 AST 32 ALT 16 Alkaline Phosphatase 70 Total Protein 6.1 L Albumin 2.5 L 05/05/18 05/05/18 05:55 06:27 WBC RBC Hgb Hct MCV MCH MCHC RDW Plt Count MPV Neut % (Auto) Lymph % (Auto) [place] % (Auto) Eos % (Auto) Baso % (Auto) Neut # (Auto) Lymph # (Auto) [place] # (Auto) Eos # (Auto) Baso # (Auto) WBC Differential Differential Comment Sodium Potassium Chloride Carbon Dioxide Anion Gap BUN Creatinine Estimated GFR POC Glucose 69 116 H Random Glucose Calcium Prot Corrected Calcium Phosphorus Magnesium Total Bilirubin AST ALT Alkaline Phosphatase Total Protein Albumin Imaging: Cervical Spine CT 05/03/18 12:37 CONCLUSION: 1. 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 2. No acute cervical spine fracture identified. Head CT 05/03/18 12:37 CONCLUSION: 1. Microvascular ischemic demyelinative change. No acute intracranial abnormality identified. . Abdomen/Pelvis CT 05/04/18 00:00 CONCLUSION: 1. Thick walled urinary bladder with a Buchanan catheter. Similar findings were seen on the prior 2 studies. 2. No obstruction or acute inflammatory changes are seen of the gastrointestinal tract. 3. Mildly distended stomach despite presence of nasogastric tube. There is questionable wall thickening, especially greater curvature of the body. This is nonspecific. Chronic hiatal hernia. 4. Cholelithiasis again demonstrated. No associated inflammatory changes are seen. No duct stone or ductal dilatation. 5. Small effusions of the visualized lung bases and mild body wall edema/ anasarca. 6. Mild bibasilar atelectasis. Head MRI 05/04/18 00:00 CONCLUSION: 1. Moderate to severe chronic white matter ischemic changes. No recent infarct. 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 2. Sinus mucosal thickening. Chest X-Ray 05/04/18 08:20 CONCLUSION: 1. Tubes and lines, as above. 2. Minimal bibasilar airspace disease, likely atelectasis. Objective Remarks: GENERAL: Patient is 78yo intubated and sedated SKIN: Warm and dry. HEAD: Normocephalic. EYES: No scleral icterus. No injection or drainage. NECK: Supple, trachea midline. No JVD or lymphadenopathy. CARDIOVASCULAR: Regular rate and rhythm without murmurs, gallops, or rubs. RESPIRATORY: Breath sounds equal bilaterally. No accessory muscle use. GASTROINTESTINAL: Abdomen soft, non-tender, nondistended. MUSCULOSKELETAL: No cyanosis, or edema. BACK: Nontender without obvious deformity. No CVA tenderness. Assessment and Plan - Assessment and Plan Plan: Neuro/Psych: Seizure -likely secondary to hypomagnesia Acute CVA History of cocaine, THC and alcohol abuse Currently on propofol for sedation while intubated Goal of RASS -[address] brain negative for acute findings x2. MRI brain : Moderate to severe chronic white matter ischemic changes. No recent infarct. 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 EEG 05/04: No acute abnormalities Vitamin bag daily times 3 days including thiamine, folate and multivitamin Monitor for DTs Urine drug screen + Cocaine Levetiracetam 1 g followed by 500 mg twice daily CV: Sinus tachycardia Essential hypertension Mild elevated trop Monitor HR and BP keep MAP>65mmHg [place] showed EF 55-60% Lactic acid 1.1 Resp: Acute respiratory failure PRVC 14/500/40 Ventilator bundle Albuterol/ipratropium aerosols every 4 hours with albuterol aerosols every 2 hours as needed for dyspnea Spontaneous breathing trials when clinically indicated CXR 05/04: Minimal bibasilar disease likely atelectasis GI: Gastroesophageal reflux disease Elevated ammonia Pantoprazole for GI prophylaxis On tube feeds Glucerna 1.5@45ml/hr Docusate serum/senna 1 tablet twice daily for bowel regimen Lactulose 30 cc twice daily for elevated ammonia. Recheck in a.m. CT abdomen/pelvis: Thick walled urinary bladder with a Buchanan catheter. Similar findings were seen on the prior 2 studies. No obstruction or acute inflammatory changes are seen of the GI tract. Mildly distended stomach despite presence of nasogastric tube. ? wall thickening, especially greater curvature of the body. This is nonspecific. Chronic hiatal hernia. Cholelithiasis again demonstrated. No associated inflammatory changes are seen. No duct stone or ductal dilatation. : Electrolytes imbalance (hypokalemia, hypocalcemia, hypomag, hypophos) History of BPH Monitor renal function, I/O's, electrolytes replacement per protocol. Change IVF D10 @84ml/hr for hypoglycemic episodes, check CK's Endo: Sliding scale insulin Accu-Cheks to maintain euglycemia/low regimen with aspart insulin IVF changed D10 for hypoglycemia. 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 Follow trends. No indication for transfusion of blood products at this time. ID: UTI Monitor for signs and symptomatology infection Continue Zosyn and monitor for signs of infections ( Fever, WBC) Urine cx 05/03: GNR Influenza screening negative MSK: PT evaluate and treat access - -Left subclavian CVL placed 05/03 Prophylaxis -GI -pantoprazole -DVT -SCD/heparin subcu Level 3
[2018-05-05] MEDS ORDERED: Dextrose 10% in Water Inj 1,000 ML IV.CONT SCH (07:30)
[2018-05-05] MEDS: Dextrose 10% in Water Inj 500 ML IV.SIG SCH ×2 (07:43→13:34)
[2018-05-05] MEDS: Heparin - SQ 10,000 UNITS/ML Vial SQ SCH ×2 (07:58→20:37)
[2018-05-05] MEDS: Chlorhexidine 0.12% Oral Kit 15 ML UDC OROPHARYNG SCH ×2 (07:59→20:37)
[2018-05-05] MEDS: Pantoprazole Inj 40 MG Vial IV.PUSH SCH (08:02)
[2018-05-05] MEDS: Carboxymethylcellulose 0.5% Opth Drops 15 ML Bottle EACH EYE SCH ×2 (08:02→20:37)
[2018-05-05] MEDS: Senna/Docusate Sodium 8.6/50 MG Tablet PO SCH ×2 (08:02→20:37)
[2018-05-05 08:47] LABS: CKMB Percent 1.1 % (0.0-4.0); Creatine Kinase MB 4.6 ng/mL (0.5-3.6)
[2018-05-05] MEDS: Hydrocortisone Sod Succinate 100 MG Vial IV.PUSH SCH ×3 (09:53→22:05)
[2018-05-05] MEDS: Multivitamin Inj 10 ML, Thiamine Inj 100 MG, Folic Acid Inj 1 MG in Sodium Chlor 0.9% I... IV.SIG SCH (22:05)
[2018-05-06] MEDS: Dextrose 10% in Water Inj 500 ML IV.SIG SCH ×4 (00:53→17:37)
[2018-05-06] MEDS: Insulin NovoLOG Aspart Correctional Sugar Inj SQ SCH ×11 (00:53→21:19)
[2018-05-06] MEDS: Oral Hygiene Kit OROPHARYNG SCH ×4 (00:53→16:08)
[2018-05-06] MEDS: Piperacil/Tazo 4.5 GM Premix 4.5 GM/100 ML BAG IV.SIG SCH ×4 (02:29→21:21)
[2018-05-06 04:05] LABS: Baso % (Auto) 0.1 % (0.0-2.0); Hematocrit 31.3 % (39.0-51.0); Hemoglobin 10.5 gm/dL (13.0-17.0); Lymph # (Auto) 0.3 th/mm3 (1.0-4.8); Lymph % (Auto) 3.4 % (9.0-44.0); Mean Corpuscular HGB Conc 33.4 % (32.0-36.0); Mean Corpuscular Hemoglobin 31.2 pg (27.0-34.0); Mean Corpuscular Volume 93.4 fL (80.0-100.0); Mean Platelet Volume 7.8 fL (7.0-11.0); Mono # (Auto) 0.2 th/mm3 (0.0-0.9); Mono % (Auto) 1.7 % (0.0-8.0); Neut # (Auto) 9.3 th/mm3 (1.8-7.7); Neut % (Auto) 94.8 % (16.0-70.0); Platelet Count 176 th/mm3 (150-450); Red Blood Count 3.35 mil/mm3 (4.50-5.90); White Blood Count 9.8 th/mm3 (4.0-11.0)
[2018-05-06 04:36] LABS: Albumin 2.3 g/dL (3.4-5.0); Calcium 7.4 mg/dL (8.5-10.1); Carbon Dioxide 23.1 meq/L (21.0-32.0); Magnesium 1.6 mg/dL (1.5-2.5); Phosphorus 2.3 mg/dL (2.5-4.9); Potassium 3.3 meq/L (3.5-5.1); Total Protein 6.3 g/dL (6.4-8.2)
[2018-05-06] MEDS: Chlorhexidine Gluconate 2% 1 Pack (2 Cloths) TOPICAL SCH (04:39)
[2018-05-06] MEDS: Hydrocortisone Sod Succinate 100 MG Vial IV.PUSH SCH ×3 (05:17→21:22)
--- NOTE | 2018-05-06 07:08 | P.PNCC ---
Subjective Subjective Remarks/Hospital Course: This is a 78-year-old -[place] male. Date of admission 05/03/2018. Past medical history includes history of cocaine, THC, alcohol abuse, history of TIA, gastroparesis, hypertension, BPH, prostate cancer status post TURP. Patient self caths. History of hypomagnesia. [id number] of hypertension presents to the emergency department for evaluation of weakness for 6 months. He says that he was in this emergency department approximately 6 months ago and since then, he has felt weak. He says that he has had poor oral intake and is 'almost homeless'. Reported no abdominal symptoms including diarrhea, nausea or vomiting per Patient had a essentially negative CT of the brain. When laboratories returned , was noted to have a magnesium 0.4. Potassium 3.1. Calcium 7.4. Elevated ammonia level. Patient received potassium. When the patient about received magnesium, patient had a witnessed seizure. Fell in the form struck it. Became more acutely confused required intubation. Repeat brain CT revealed no acute findings. EKG revealed no prolonged QTc interval. Currently receiving 4 g mag sulfate IV x1 now. 05/04 Patient is sedated with Diprivan and intubated. Afebrile. Hypoglycemic overnight with BC 49 given 1 amp D50, afebrile. 05/05 Patient remains intubated and sedated with Diprivan, afebrile. MRI brain last night showed no acute findings. Hypoglycemic overnight given 1 amp D50 x2. 05/06 Patient remains intubated on low dose sedation ( Diprivan 10 mics). Afebrile. Objective Vital Signs / I&O: Vital Signs 05/05/18 08:00 05/05/18 08:07 05/05/18 08:09 Temperature 98.6 F Pulse Rate 82 81 Respiratory Rate 12 16 19 Blood Pressure 157/82 H Pulse Oximetry 100 100 05/05/18 09:00 05/05/18 10:00 05/05/18 11:00 Temperature Pulse Rate 86 100 H 98 H Respiratory Rate 16 13 19 Blood Pressure 175/89 H 159/83 H 177/87 H Pulse Oximetry 100 100 100 05/05/18 11:55 05/05/18 12:00 05/05/18 13:00 Temperature 98.0 F Pulse Rate 84 82 91 H Respiratory Rate 14 14 15 Blood Pressure 174/86 H 179/87 H Pulse Oximetry 100 100 100 05/05/18 14:00 05/05/18 15:00 05/05/18 15:37 Temperature Pulse Rate 102 H 100 H Respiratory Rate 10 L 9 L Blood Pressure 161/81 H 167/90 H Pulse Oximetry 100 100 100 05/05/18 15:38 05/05/18 16:00 05/05/18 17:00 Temperature 98.8 F Pulse Rate 100 H 101 H 101 H Respiratory Rate 12 13 15 Blood Pressure 166/93 H 171/94 H Pulse Oximetry 100 100 05/05/18 18:00 05/05/18 19:00 05/05/18 19:38 Temperature Pulse Rate 101 H 111 H 105 H Respiratory Rate 12 14 18 Blood Pressure 190/102 H Pulse Oximetry 99 100 05/05/18 19:40 05/05/18 20:00 05/05/18 21:00 Temperature 98.9 F Pulse Rate 108 H 112 H Respiratory Rate 19 14 14 Blood Pressure 175/96 H 180/91 H Pulse Oximetry 100 100 100 05/05/18 22:00 05/05/18 23:00 05/05/18 23:08 Temperature Pulse Rate 90 85 82 Respiratory Rate 14 14 14 Blood Pressure 98/55 L 117/63 Pulse Oximetry 100 100 05/05/18 23:10 05/06/18 00:00 05/06/18 01:00 Temperature 98.5 F Pulse Rate 104 H 99 H Respiratory Rate 14 14 14 Blood Pressure 157/79 H 154/77 H Pulse Oximetry 96 100 99 05/06/18 02:00 05/06/18 03:00 05/06/18 04:00 Temperature 97.9 F Pulse Rate 84 96 H 100 H Respiratory Rate 14 14 14 Blood Pressure 129/65 163/84 H 166/85 H Pulse Oximetry 100 100 100 05/06/18 04:35 05/06/18 05:00 05/06/18 06:00 Temperature Pulse Rate 99 H 83 87 Respiratory Rate 18 14 14 Blood Pressure 148/75 H 155/77 H Pulse Oximetry 93 L 100 100 Intake & Output 05/05/18 05/06/18 05/06/18 18:59 06:59 18:59 Intake Total 1168 / 1168 2524.2 / 2524.2 Output Total 1800 / 1800 850 / 850 Balance -632 / -632 1674.2 / 1674.2 Weight 57.9 kg Intake: IV 682 / 682 2016.2 / 2016.2 D5W/1/2NS + KCL 20 mEq Inj 1, 82 / 82 000 ML @ 84 mls/hr IV.CONT . [id number] [facility] Rx#:[id number] Diprivan 1000 mg/100 ml Inj 1, 100 / 100 000 mg In 100 ml @ 5 MCG/KG/MIN 1.701 mls/hr IV.CONT TITRATE PRN Rx#:[id number] D10W Inj 500 ML @ 84 mls/hr IV. 500 / 500 1000 / 1000 SIG .[id number] [facility] Rx#:[id number] MVI-12 Inj 10 ML Thiamine Inj 511.2 / 511.2 100 MG Folvite Inj 1 MG In NS Inj 500 ML @ 125 mls/hr IV.SIG Q24H [facility] Rx#:[id number] Zosyn 4.5 GM Premix 4.5 gm In 100 / 100 300 / 300 100 ml @ 200 mls/hr IV.SIG Q6H [facility] Rx#:[id number] Sodium Phosphate Inj 30 MMOL In 0 / 0 NS Inj 250 ML @ 42 mls/hr IV. SIG UNSCH PRN Rx#:[id number] Keppra Inj 500 MG In NS Inj 100 105 / 105 ML @ 400 mls/hr IV.SIG Q12H [facility] Rx#:[id number] Oral 0 / 0 Tube Feeding 486 / 486 358 / 358 Tube Irrigant 150 / 150 Output: Urine Amount (Catheter) 1800 / 1800 850 / 850 Indwelling Urethral Catheter 1800 / 1800 850 / 850 Other: Date of Last Bowel Movement 05/05/18 05/06/18 # Bowel Movements 1 2 Result Diagrams: 05/06/18 03:43 05/06/18 03:43 Other Results: Laboratory Results - last 12 hr 05/05/18 05/05/18 05/06/18 20:19 22:02 00:51 WBC RBC Hgb Hct MCV MCH MCHC RDW Plt Count MPV Neut % (Auto) Lymph % (Auto) [place] % (Auto) Eos % (Auto) Baso % (Auto) Neut # (Auto) Lymph # (Auto) [place] # (Auto) Eos # (Auto) Baso # (Auto) WBC Differential Differential Comment Sodium Potassium Chloride Carbon Dioxide Anion Gap BUN Creatinine Estimated GFR POC Glucose 104 155 H 110 Random Glucose Calcium Prot Corrected Calcium Phosphorus Magnesium Total Bilirubin AST ALT Alkaline Phosphatase Total Protein Albumin 05/06/18 05/06/18 05/06/18 02:27 03:43 03:43 WBC 9.8 RBC 3.35 L Hgb 10.5 L Hct 31.3 L MCV 93.4 MCH 31.2 MCHC 33.4 RDW 14.0 Plt Count 176 MPV 7.8 Neut % (Auto) 94.8 H Lymph % (Auto) 3.4 L [place] % (Auto) 1.7 Eos % (Auto) 0.0 Baso % (Auto) 0.1 Neut # (Auto) 9.3 H Lymph # (Auto) 0.3 L [place] # (Auto) 0.2 Eos # (Auto) 0.0 Baso # (Auto) 0.0 WBC Differential . Differential Comment Auto diff final Sodium 147 H Potassium 3.3 L Chloride 114 H Carbon Dioxide 23.1 Anion Gap 10 BUN 6 L Creatinine 1.39 H Estimated GFR 60 L POC Glucose 121 H Random Glucose 153 H Calcium 7.4 L* Prot Corrected Calcium 7.8 L Phosphorus 2.3 L Magnesium 1.6 Total Bilirubin 0.4 AST 25 ALT 17 Alkaline Phosphatase 84 Total Protein 6.3 L Albumin 2.3 L 05/06/18 06:17 WBC RBC Hgb Hct MCV MCH MCHC RDW Plt Count MPV Neut % (Auto) Lymph % (Auto) [place] % (Auto) Eos % (Auto) Baso % (Auto) Neut # (Auto) Lymph # (Auto) [place] # (Auto) Eos # (Auto) Baso # (Auto) WBC Differential Differential Comment Sodium Potassium Chloride Carbon Dioxide Anion Gap BUN Creatinine Estimated GFR POC Glucose 97 Random Glucose Calcium Prot Corrected Calcium Phosphorus Magnesium Total Bilirubin AST ALT Alkaline Phosphatase Total Protein Albumin Imaging: Cervical Spine CT 05/03/18 12:37 CONCLUSION: 1. 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 2. No acute cervical spine fracture identified. Head CT 05/03/18 12:37 CONCLUSION: 1. Microvascular ischemic demyelinative change. No acute intracranial abnormality identified. . Abdomen/Pelvis CT 05/04/18 00:00 CONCLUSION: 1. Thick walled urinary bladder with a Buchanan catheter. Similar findings were seen on the prior 2 studies. 2. No obstruction or acute inflammatory changes are seen of the gastrointestinal tract. 3. Mildly distended stomach despite presence of nasogastric tube. There is questionable wall thickening, especially greater curvature of the body. This is nonspecific. Chronic hiatal hernia. 4. Cholelithiasis again demonstrated. No associated inflammatory changes are seen. No duct stone or ductal dilatation. 5. Small effusions of the visualized lung bases and mild body wall edema/ anasarca. 6. Mild bibasilar atelectasis. Head MRI 05/04/18 00:00 CONCLUSION: 1. Moderate to severe chronic white matter ischemic changes. No recent infarct. 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 2. Sinus mucosal thickening. Chest X-Ray 05/04/18 08:20 CONCLUSION: 1. Tubes and lines, as above. 2. Minimal bibasilar airspace disease, likely atelectasis. Objective Remarks: GENERAL: Patient is 78yo intubated and sedated SKIN: Warm and dry. HEAD: Normocephalic. EYES: No scleral icterus. No injection or drainage. NECK: Supple, trachea midline. No JVD or lymphadenopathy. CARDIOVASCULAR: Regular rate and rhythm without murmurs, gallops, or rubs. RESPIRATORY: Breath sounds equal bilaterally. No accessory muscle use. GASTROINTESTINAL: Abdomen soft, non-tender, nondistended. MUSCULOSKELETAL: No cyanosis, or edema. Neuro: Intubated, sedated Assessment and Plan - Assessment and Plan Plan: Neuro/Psych: Encephalopathy Seizure -likely secondary to hypomagnesia Acute CVA History of cocaine, THC and alcohol abuse Currently on propofol for sedation while intubated Goal of RASS -[address] brain negative for acute findings x2. MRI brain : Moderate to severe chronic white matter ischemic changes. No recent infarct. 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 EEG 05/04: No acute abnormalities Vitamin bag daily times 3 days including thiamine, folate and multivitamin Monitor for DTs Urine drug screen + Cocaine Levetiracetam 1 g followed by 500 mg twice daily Neuro eval. CV: Sinus tachycardia Essential hypertension Mild elevated trop Place on Cardizem 60mg Q6 for BP control Monitor HR and BP keep MAP>65mmHg Echo showed EF 55-60% Lactic acid 1.1 Resp: Acute respiratory failure PRVC 14/500/40 Ventilator bundle Albuterol/ipratropium aerosols every 4 hours with albuterol aerosols every 2 hours as needed for dyspnea Spontaneous breathing trials as eileen CXR 05/04: Minimal bibasilar disease likely atelectasis GI: Gastroesophageal reflux disease Elevated ammonia Pantoprazole for GI prophylaxis On tube feeds Glucerna 1.5with goal rate 45ml/hr Docusate serum/senna 1 tablet twice daily for bowel regimen Lactulose 30 cc twice daily for elevated ammonia. Recheck in a.m. CT abdomen/pelvis: Thick walled urinary bladder with a Buchanan catheter. Similar findings were seen on the prior 2 studies. No obstruction or acute inflammatory changes are seen of the GI tract. Mildly distended stomach despite presence of nasogastric tube. ? wall thickening, especially greater curvature of the body. This is nonspecific. Chronic hiatal hernia. Cholelithiasis again demonstrated. No associated inflammatory changes are seen. No duct stone or ductal dilatation. : Electrolytes imbalance (hypokalemia, hypocalcemia, hypomag, hypophos) History of BPH Monitor renal function, I/O's, electrolytes replacement per protocol. Will need K, Phos replacement today IVF D10 @84ml/hr for hypoglycemic episodes, Endo: Sliding scale insulin Accu-Cheks to maintain euglycemia/low regimen with aspart insulin On D10 @84ml/hr for hypoglycemia. 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 Follow trends. No indication for transfusion of blood products at this time. ID: UTI Positive C-diff Monitor for signs and symptomatology infection Continue Zosyn, add Flagyl 500mg IV Q8 and monitor for signs of infections ( Fever, WBC) Urine cx 05/03: Kleb pneumonia Influenza screening negative C-diff PCR positive ID eval MSK: PT evaluate and treat access - -Left subclavian CVL placed 05/03 Prophylaxis -GI -pantoprazole -DVT -SCD/heparin subcu Level 3
[2018-05-06] MEDS: Pantoprazole Inj 40 MG Vial IV.PUSH SCH (08:01)
[2018-05-06] MEDS: Chlorhexidine 0.12% Oral Kit 15 ML UDC OROPHARYNG SCH ×2 (08:01→21:21)
[2018-05-06] MEDS: dilTIAZem 60 MG Tablet PO SCH ×3 (08:01→17:38)
[2018-05-06] MEDS: Senna/Docusate Sodium 8.6/50 MG Tablet PO SCH ×2 (08:05→21:21)
[2018-05-06] MEDS: Carboxymethylcellulose 0.5% Opth Drops 15 ML Bottle EACH EYE SCH ×2 (08:05→21:22)
[2018-05-06] MEDS: Heparin - SQ 10,000 UNITS/ML Vial SQ SCH ×2 (08:30→21:19)
--- NOTE | 2018-05-06 12:03 | MB ---
cc: Isai Vasquez MD DATE: 05/06/2018 HISTORY OF PRESENT ILLNESS: The patient was admitted 05/03/2018 with history of hypertension, weakness, generalized for 6 months, dizziness whenever turns his head to the left or to right, usually resolves in 10 seconds looking straight ahead, almost homeless, with a history of alcohol use, GE reflux, hypertension, hypomagnesemia, osteoarthritis, marijuana use, cocaine abuse, prostate cancer, TIA in the past, urinary retention with BPH. In the ER, he was found seizing on the ground. Evidently he was self-cathing himself at home and self-cathing himself in the ER. He had refused assistance, according to the nurse, and maybe passed out and had a seizure while self cathing. He was postictal. He became increasingly agitated and was given some potassium. His magnesium was low. Calcium was slightly low. Blood sugar was 60. He became increasingly lethargic throughout the day in the ER, and then was subsequently intubated. He and remains intubated. I am seeing him for mental status change. Medications listed at home was none known. He had an EEG done that was normal several days ago. He had an echocardiogram done showed a normal ejection fraction, essentially unremarkable. Left atrial size was normal. Mitral and aortic valves were essentially negative. He has never been seen by Neurology here before. He did have an MRI of the brain about a year ago showed some white matter changes. He had a neck CTA done in 2017 that was negative, and an MRA of his head done at that time that was normal. There was a questionable area of cerebellar abnormality at that time, although, on reviewing the films, I do not see that here. He had some mild prominence of the ventricles at that time; white matter changes bilaterally, but no distinct old infarct. Nuclear scan was negative, as was a stress test 2017. CURRENT MEDICATIONS: 1. Tylenol. 2. Fentanyl. 3. Subcutaneous heparin. 4. Keppra 500 every 12 hours. REVIEW OF SYSTEMS: Unable to do review of systems. PHYSICAL EXAMINATION: Pulse 107, has been generally afebrile, respirations 14. Blood pressure 161/90. Highest blood pressure 190/102, lowest 198/55; initially when he presented, he was 202/117. There were no carotid bruits. Heart was regular rate and rhythm. I did not detect a murmur. He is intubated and tends to look up and to the left, although he did react to threat there and also appeared to react to threat from the right side. Pupils appear to be equal. He moves bilateral lower extremities well. I cannot get him to move the upper extremities. The toes appear to be slightly upgoing bilaterally, slightly hyperreflexive on the right knee jerk, compared to the left, but about 2++ on both. LABORATORY DATA: CBC shows mild anemia, otherwise essentially normal. His UA showed 31 white cells, small amount of leukocyte esterase. His basic metabolic profile shows a creatinine 1.39, normal GFR. His original BMP was normal. His TSH was normal. Albumin 3.1. LFTs were normal. Troponin negative. CPK 400. Ammonia level was initially 63, now 24. AB.47, 29, 155 on the . Coags were normal. Urine drug screen positive for cocaine. MRI of the brain showed some white matter changes on this admission just 2 days ago only. Review of the films shows some subcortical white matter changes on the right frontotemporal region diffusion on the FLAIR. Diffusion imaging was negative for any acute infarct. No hemorrhage is noted. And, comparing this scan to the 04/2017 scan, he did have those little changes on the temporal lobe apparently at that time. OTHER LABS: In 2017, he had a negative, RPR and negative HIV. His rheumatoid factor was negative. His LIZZIE was 1:1280. His paraneoplastic screen was negative. He was positive for cocaine in the past several times. He had an LP done in the past showed 6 white cells, normal glucose essentially normal protein with negative titers. He had a serum protein electrophoresis in the past which showed an elevated gammaglobulin portion. He had normal B6, B12, methylmalonic acid a year ago, normal thyroid studies. Sedimentation rate was normal a year ago. IMPRESSION: Encephalopathy. Cocaine use. Negative EEG and MRI. He should come around cognitively. We will check a few blood tests on him, but he is moving everything and I suspect he will probably do okay neurologically. Continue on the Keppra. He will need to stop doing cocaine. We will recheck his LIZZIE titer, his sedimentation rate, and the serum protein electrophoresis. MD Johnson Luna , 10:11 AM , 10:24 AM
[2018-05-06] MEDS: Dextrose 50% in Water 50 ML Vial IV.PUSH PRN (12:21)
[2018-05-06] MEDS: Propofol 1000 mg/100 ml Inj 1,000 MG/100 ML BOTTLE IV.CONT PRN (12:27)
[2018-05-06 18:30] LABS: Potassium 3.3 meq/L (3.5-5.1)
[2018-05-06 18:39] LABS: Phosphorus 2.5 mg/dL (2.5-4.9)
[2018-05-07] MEDS: Propofol 1000 mg/100 ml Inj 1,000 MG/100 ML BOTTLE IV.CONT PRN ×3 (02:50→18:24)
[2018-05-07] MEDS: Piperacil/Tazo 4.5 GM Premix 4.5 GM/100 ML BAG IV.SIG SCH ×2 (03:05→08:55)
[2018-05-07] MEDS: Dextrose 50% in Water 50 ML Vial IV.PUSH PRN (03:05)
[2018-05-07 05:40] LABS: Hematocrit 30.1 % (39.0-51.0); Lymph # (Auto) 0.3 th/mm3 (1.0-4.8); Lymph % (Auto) 2.5 % (9.0-44.0); Mean Corpuscular HGB Conc 33.1 % (32.0-36.0); Mean Corpuscular Volume 93.6 fL (80.0-100.0); Mean Platelet Volume 8.1 fL (7.0-11.0); Mono # (Auto) 0.4 th/mm3 (0.0-0.9); Mono % (Auto) 3.2 % (0.0-8.0); Neut # (Auto) 12.2 th/mm3 (1.8-7.7); Neut % (Auto) 94.3 % (16.0-70.0); Platelet Count 186 th/mm3 (150-450); Red Blood Count 3.21 mil/mm3 (4.50-5.90); Red Cell Distribution Width 14.2 % (11.6-17.2); White Blood Count 12.9 th/mm3 (4.0-11.0)
[2018-05-07 06:02] LABS: Albumin 2.3 g/dL (3.4-5.0); Anion Gap 10 meq/L (5-15); Aspartate Aminotransferase 22 U/L (15-37); Blood Urea Nitrogen 7 mg/dL (7-18); Calcium 7.9 mg/dL (8.5-10.1); Carbon Dioxide 25.1 meq/L (21.0-32.0); Chloride 111 meq/L (98-107); Glomerular Filtration Rate 65 mL/min (>89); Glucose,Random 153 mg/dL (74-106); Magnesium 1.7 mg/dL (1.5-2.5); Potassium 3.2 meq/L (3.5-5.1); Sodium 146 meq/L (136-145)
[2018-05-07 06:03] LABS: Alanine Aminotransferase 17 U/L (12-78); Phosphorus 2.6 mg/dL (2.5-4.9)
[2018-05-07 06:05] LABS: Alkaline Phosphatase 70 U/L (45-117); Total Protein 6.2 g/dL (6.4-8.2)
--- NOTE | 2018-05-07 07:15 | P.PNCC ---
Subjective Subjective Remarks/Hospital Course: This is a 78-year-old -[place] male. Date of admission 05/03/2018. Past medical history includes history of cocaine, THC, alcohol abuse, history of TIA, gastroparesis, hypertension, BPH, prostate cancer status post TURP. Patient self caths. History of hypomagnesia. [id number] with history of hypertension presents to the emergency department for evaluation of weakness for 6 months. He says that he was in this emergency department approximately 6 months ago and since then, he has felt weak. He says that he has had poor oral intake and is 'almost homeless'. Reported no abdominal symptoms including diarrhea, nausea or vomiting per Patient had a essentially negative CT of the brain. When laboratories returned , was noted to have a magnesium 0.4. Potassium 3.1. Calcium 7.4. Elevated ammonia level. Patient received potassium. When the patient about received magnesium, patient had a witnessed seizure. Fell in the form struck it. Became more acutely confused required intubation. Repeat brain CT revealed no acute findings. EKG revealed no prolonged QTc interval. Currently receiving 4 g mag sulfate IV x1 now. 05/04 Patient is sedated with Diprivan and intubated. Afebrile. Hypoglycemic overnight with BC 49 given 1 amp D50, afebrile. 05/05 Patient remains intubated and sedated with Diprivan, afebrile. MRI brain last night showed no acute findings. Hypoglycemic overnight given 1 amp D50 x2. 05/06 Patient remains intubated on low dose sedation ( Diprivan 10 mics). Afebrile. 05/07 Patient is sedated with Diprivan and intubated. Afebrile. Objective Vital Signs / I&O: Vital Signs 05/06/18 07:44 05/06/18 08:00 05/06/18 09:00 Temperature Pulse Rate 109 H 107 H 100 H Respiratory Rate 14 14 15 Blood Pressure 174/90 H 190/100 H Pulse Oximetry 100 100 99 05/06/18 09:09 05/06/18 10:00 05/06/18 11:00 Temperature Pulse Rate 101 H 100 H 87 Respiratory Rate 15 14 13 Blood Pressure 176/89 H 168/83 H 194/95 H Pulse Oximetry 99 100 100 05/06/18 12:00 05/06/18 13:00 05/06/18 14:00 Temperature 97.6 F Pulse Rate 96 H 93 H 96 H Respiratory Rate 16 16 16 Blood Pressure 172/80 H 178/88 H 178/84 H Pulse Oximetry 100 100 100 05/06/18 14:15 05/06/18 14:25 05/06/18 15:00 Temperature Pulse Rate 108 H 100 H 96 H Respiratory Rate 19 18 18 Blood Pressure 148/69 H 145/71 H Pulse Oximetry 100 100 05/06/18 15:26 05/06/18 16:00 05/06/18 16:18 Temperature 98.6 F Pulse Rate 107 H 96 H Respiratory Rate 24 22 18 Blood Pressure 180/95 H 164/83 H Pulse Oximetry 100 100 100 05/06/18 17:00 05/06/18 18:00 05/06/18 18:11 Temperature Pulse Rate 99 H 105 H 101 H Respiratory Rate 15 19 15 Blood Pressure 149/84 H 164/100 H 180/110 H Pulse Oximetry 100 100 100 05/06/18 18:20 05/06/18 19:00 05/06/18 20:00 Temperature 98.5 F Pulse Rate 91 H 92 H 94 H Respiratory Rate 16 17 13 Blood Pressure 171/87 H 157/84 H 153/85 H Pulse Oximetry 100 100 100 05/06/18 21:00 05/06/18 21:30 05/06/18 22:00 Temperature Pulse Rate 95 H 90 96 H Respiratory Rate 17 17 21 Blood Pressure 165/89 H 169/92 H Pulse Oximetry 100 100 100 05/06/18 23:00 05/06/18 23:59 05/07/18 00:00 Temperature 98.5 F Pulse Rate 79 96 H 95 H Respiratory Rate 14 25 H 19 Blood Pressure 159/84 H 185/95 H Pulse Oximetry 100 100 100 05/07/18 01:00 05/07/18 02:00 05/07/18 03:00 Temperature Pulse Rate 97 H 69 97 H Respiratory Rate 20 15 22 Blood Pressure 185/89 H 151/98 H 185/106 H Pulse Oximetry 100 100 100 05/07/18 03:15 05/07/18 04:00 05/07/18 04:11 Temperature Pulse Rate 96 H 101 H Respiratory Rate 30 H 20 28 H Blood Pressure 158/78 H Pulse Oximetry 100 100 05/07/18 05:00 Temperature Pulse Rate 72 Respiratory Rate 15 Blood Pressure 138/72 Pulse Oximetry 100 Intake & Output 05/06/18 05/07/18 05/07/18 18:59 06:59 18:59 Intake Total 2049 / 2049 200 / 200 Output Total 1250 / 1250 Balance 799 / 799 200 / 200 Intake: IV 1765 / 1765 200 / 200 Diprivan 1000 mg/100 ml Inj 1, 100 / 100 100 / 100 000 mg In 100 ml @ 5 MCG/KG/MIN 1.701 mls/hr IV.CONT TITRATE PRN Rx#:[id number] D10W Inj 500 ML @ 84 mls/hr IV. 1000 / 1000 SIG .Q5H58M MATTEO Rx#:[id number] Zosyn 4.5 GM Premix 4.5 gm In 200 / 200 100 / 100 100 ml @ 200 mls/hr IV.SIG Q6H MATTEO Rx#:[id number] Potassium Phosphate Inj 30 MMOL 260 / 260 In NS Inj 250 ML @ 42 mls/hr IV.SIG UNSCH PRN Rx#:[id number] Keppra Inj 500 MG In NS Inj 100 105 / 105 ML @ 400 mls/hr IV.SIG Q12H MATTEO Rx#:[id number] Flagyl 500 MG Inj 100 ML @ 100 100 / 100 mls/hr IV.SIG Q8H MATTEO Rx#: [id number] Tube Feeding 284 / 284 Output: Urine Amount (Catheter) 1250 / 1250 Indwelling Urethral Catheter 1250 / 1250 Other: Date of Last Bowel Movement 05/06/18 05/06/18 # Bowel Movements 1 Result Diagrams: 05/07/18 05:00 05/07/18 05:00 Other Results: Laboratory Results - last 12 hr 05/06/18 05/06/18 05/07/18 20:38 21:53 01:02 WBC RBC Hgb Hct MCV MCH MCHC RDW Plt Count MPV Neut % (Auto) Lymph % (Auto) Ector % (Auto) Eos % (Auto) Baso % (Auto) Neut # (Auto) Lymph # (Auto) Ector # (Auto) Eos # (Auto) Baso # (Auto) WBC Differential Differential Comment Sodium Potassium Chloride Carbon Dioxide Anion Gap BUN Creatinine Estimated GFR POC Glucose 77 88 77 Random Glucose Calcium Phosphorus Magnesium Total Bilirubin AST ALT Alkaline Phosphatase Total Protein Albumin 05/07/18 05/07/18 05/07/18 02:43 04:00 05:00 WBC 12.9 H RBC 3.21 L Hgb 10.0 L Hct 30.1 L MCV 93.6 MCH 31.0 MCHC 33.1 RDW 14.2 Plt Count 186 MPV 8.1 Neut % (Auto) 94.3 H Lymph % (Auto) 2.5 L Ector % (Auto) 3.2 Eos % (Auto) 0.0 Baso % (Auto) 0.0 Neut # (Auto) 12.2 H Lymph # (Auto) 0.3 L Ector # (Auto) 0.4 Eos # (Auto) 0.0 Baso # (Auto) 0.0 WBC Differential . Differential Comment Auto diff final Sodium Potassium Chloride Carbon Dioxide Anion Gap BUN Creatinine Estimated GFR POC Glucose 66 L 109 Random Glucose Calcium Phosphorus Magnesium Total Bilirubin AST ALT Alkaline Phosphatase Total Protein Albumin 05/07/18 05:00 WBC RBC Hgb Hct MCV MCH MCHC RDW Plt Count MPV Neut % (Auto) Lymph % (Auto) Ector % (Auto) Eos % (Auto) Baso % (Auto) Neut # (Auto) Lymph # (Auto) Ector # (Auto) Eos # (Auto) Baso # (Auto) WBC Differential Differential Comment Sodium 146 H Potassium 3.2 L Chloride 111 H Carbon Dioxide 25.1 Anion Gap 10 BUN 7 Creatinine 1.30 Estimated GFR 65 L POC Glucose Random Glucose 153 H Calcium 7.9 L Phosphorus 2.6 Magnesium 1.7 Total Bilirubin 0.3 AST 22 ALT 17 Alkaline Phosphatase 70 Total Protein 6.2 L Albumin 2.3 L Imaging: Cervical Spine CT 05/03/18 12:37 CONCLUSION: 1. 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 2. No acute cervical spine fracture identified. Head CT 05/03/18 12:37 CONCLUSION: 1. Microvascular ischemic demyelinative change. No acute intracranial abnormality identified. . Abdomen/Pelvis CT 05/04/18 00:00 CONCLUSION: 1. Thick walled urinary bladder with a Buchanan catheter. Similar findings were seen on the prior 2 studies. 2. No obstruction or acute inflammatory changes are seen of the gastrointestinal tract. 3. Mildly distended stomach despite presence of nasogastric tube. There is questionable wall thickening, especially greater curvature of the body. This is nonspecific. Chronic hiatal hernia. 4. Cholelithiasis again demonstrated. No associated inflammatory changes are seen. No duct stone or ductal dilatation. 5. Small effusions of the visualized lung bases and mild body wall edema/ anasarca. 6. Mild bibasilar atelectasis. Head MRI 05/04/18 00:00 CONCLUSION: 1. Moderate to severe chronic white matter ischemic changes. No recent infarct. 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 2. Sinus mucosal thickening. Chest X-Ray 05/04/18 08:20 CONCLUSION: 1. Tubes and lines, as above. 2. Minimal bibasilar airspace disease, likely atelectasis. Objective Remarks: GENERAL: Patient is 78yo intubated and sedated SKIN: Warm and dry. HEAD: Normocephalic. EYES: No scleral icterus. No injection or drainage. NECK: Supple, trachea midline. No JVD or lymphadenopathy. CARDIOVASCULAR: Regular rate and rhythm without murmurs, gallops, or rubs. RESPIRATORY: Breath sounds equal bilaterally. No accessory muscle use. GASTROINTESTINAL: Abdomen soft, non-tender, nondistended. MUSCULOSKELETAL: No cyanosis, or edema. Neuro: Intubated, sedated Assessment and Plan - Assessment and Plan Plan: Neuro/Psych: Encephalopathy- multifactorial 2nd metabolic/toxic etiology Seizure -likely secondary to hypomagnesia History of cocaine, THC and alcohol abuse Neuro is following- Dr. Vasquez Currently on propofol for sedation while intubated Goal of RASS -[address] brain negative for acute findings x2. MRI brain : Moderate to severe chronic white matter ischemic changes. No recent infarct. 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 EEG 05/04: No acute abnormalities Vitamin bag daily times 3 days including thiamine, folate and multivitamin Monitor for DTs Urine drug screen + Cocaine Levetiracetam 500 mg twice daily CV: Sinus tachycardia Essential hypertension Mild elevated trop on Cardizem 60mg Q6 for BP control Monitor HR and BP keep MAP>65mmHg Echo showed EF 55-60% Lactic acid 1.1 Resp: Acute respiratory failure PRVC 14/500/08/11/39 Ventilator bundle Albuterol/ipratropium aerosols every 4 hours with albuterol aerosols every 2 hours as needed for dyspnea Spontaneous breathing trials as eileen CXR 05/04: Minimal bibasilar disease likely atelectasis Check CXR today GI: Gastroesophageal reflux disease Elevated ammonia Pantoprazole for GI prophylaxis On tube feeds Glucerna 1.5with goal rate 45ml/hr Docusate serum/senna 1 tablet twice daily for bowel regimen Lactulose 30 cc twice daily for elevated ammonia. Recheck in a.m. CT abdomen/pelvis: Thick walled urinary bladder with a Buchanan catheter. Similar findings were seen on the prior 2 studies. No obstruction or acute inflammatory changes are seen of the GI tract. Mildly distended stomach despite presence of nasogastric tube. ? wall thickening, especially greater curvature of the body. This is nonspecific. Chronic hiatal hernia. Cholelithiasis again demonstrated. No associated inflammatory changes are seen. No duct stone or ductal dilatation. : Hypokalemia History of BPH Monitor renal function, I/O's, electrolytes replacement per protocol. Will need K replacement today IVF D10 @84ml/hr for hypoglycemic episodes, Endo: Sliding scale insulin Accu-Cheks to maintain euglycemia/low regimen with aspart insulin On D10 @84ml/hr for hypoglycemia. 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 Follow trends. No indication for transfusion of blood products at this time. ID: [id number] Positive C-diff Monitor for signs and symptomatology infection On Rocephin and PO Vanco, monitor for signs of infections ( Fever, WBC) Urine cx 05/03: Kleb pneumonia Influenza screening negative C-diff PCR positive ID is following MSK: PT evaluate and treat access - -Left subclavian CVL placed 05/03 Prophylaxis -GI -pantoprazole -DVT -SCD/heparin subcu Level 3
[2018-05-07] MEDS: Hydrocortisone Sod Succinate 100 MG Vial IV.PUSH SCH ×3 (07:39→22:35)
[2018-05-07] MEDS: dilTIAZem 60 MG Tablet PO SCH ×5 (07:41→20:06)
[2018-05-07] MEDS: Insulin NovoLOG Aspart Correctional Sugar Inj SQ SCH ×11 (07:41→22:37)
[2018-05-07] MEDS: Oral Hygiene Kit OROPHARYNG SCH ×3 (07:45→18:21)
[2018-05-07] MEDS: Chlorhexidine Gluconate 2% 1 Pack (2 Cloths) TOPICAL SCH (07:45)
--- NOTE | 2018-05-07 07:53 | XR ---
EXAM DATE: 05/07/2018 7:16 AM EDT AGE/SEX: 78 years / Male INDICATIONS: Shortness of breath. CLINICAL DATA: This is the patient's subsequent encounter. Patient reports that signs and symptoms h ave been present for 4 - 6 days and indicates a pain score of Nonresponsive. MEDICAL/SURGICAL HISTORY: . Hypertension. Carcinoma, prostatic. Gastroesophageal reflux disease . BPH. TIA. . Cystoscopy. TURP. COMPARISON: [facility], CHEST 1V SINGLE AP, 05/04/2018. . FINDINGS: Support apparatus in good position. Minimal bibasilar parenchymal changes. No pneumothorax. No pleura l effusion. The heart and pulmonary vascularity are normal. . The portion of the bony skeleton visual ized is unremarkable. . CONCLUSION: Support apparatus in good position. Minimal bibasilar parenchymal changes. Electronically signed by: Soto Moore MD 05/07/2018 7:52 AM EDT
--- NOTE | 2018-05-07 08:30 | P.PNNEU ---
Subjective Active Medications: Active Medications Acetaminophen (Tylenol) 650 mg PO Q6H PRN PRN Reason: Fever >101f Al Hydroxide/Mg Hydroxide (Milk Of Magnsami Liq) 30 ml PO Q12H PRN PRN Reason: Mild Constipation Albuterol (Albuterol Neb (Prn)) 2.5 mg NEB Q2HR NEB PRN PRN Reason: SHORTNESS OF BREATH/WHEEZING Albuterol (Duoneb Neb ([facility])) 1 ampul NEB Q4HR NEB [facility] Last Admin: 05/07/18 03:15 Dose: 1 ampul Artificial Tears (Refresh Tears 0.5% Opth Drops) 1 drop EACH EYE BID [facility] Last Admin: 05/06/18 21:22 Dose: 1 drop Bisacodyl (Dulcolax Supp) 10 mg RECTAL DAILY PRN PRN Reason: SEVERE CONSITIPATION Chlorhexidine Gluconate (Peridex 0.12% Oral Kit) 15 ml OROPHARYNG BID@0800, 2000 [facility] Last Admin: 05/06/18 21:21 Dose: 15 ml Chlorhexidine Gluconate (Chlorhexidine 2% Cloth) 3 pack TOPICAL DAILY@0400 [facility] Stop: 05/09/18 03:59 Last Admin: 05/07/18 07:45 Dose: 3 pack Chlorhexidine Gluconate (Chlorhexidine 2% Cloth) 3 pack TOPICAL DAILY@0400 PRN PRN Reason: Extra cloth needed Stop: 05/09/18 03:59 Dextrose (D50w Vial) 50 ml IV.PUSH UNSCH PRN PRN Reason: PER HYPOGLYCEMIA PROTOCOL Last Admin: 05/07/18 03:05 Dose: 50 ml Diltiazem HCl (Cardizem) 60 mg PO QID [facility] Last Admin: 05/07/18 07:41 Dose: 60 mg Glucagon (Glucagon Inj) 1 mg OTHER PRN PRN PRN Reason: for Hypoglycemia Protocol Heparin Sodium (Porcine) (Heparin Inj) 5,000 units SQ Q12H [facility] Last Admin: 05/06/18 21:19 Dose: 5,000 units Hydrocortisone Sodium Succinate (Solucortef Inj) 100 mg IV.PUSH Q8HR [facility] Last Admin: 05/07/18 07:39 Dose: 100 mg Magnesium Sulfate 4 gm/ Sodium (Chloride) 100 mls @ 50 mls/hr IV.SIG UNSCH PRN PRN Reason: For Magnesium 0.9 - 1.1 mg/dL Potassium Chloride (Kcl 40 Meq Premix Inj) 40 meq in 100 mls @ 25 mls/hr IV.SIG Q4H PRN PRN Reason: For Potassium 2.8 - 3.2 mEq/L Last Infusion: 05/04/18 18:27 Dose: Infused Potassium Chloride (Kcl 20 Meq Premix Inj) 20 meq in 100 mls @ 50 mls/hr IV.SIG Q2H PRN PRN Reason: For Potassium 3.3 - 3.5 mEq/L Potassium Chloride (Kcl 40 Meq Premix Inj) 40 meq in 100 mls @ 25 mls/hr IV.SIG UNSCH PRN PRN Reason: For Potassium 3.3 - 3.5 mEq/L Potassium Chloride (Kcl 20 Meq Premix Inj) 20 meq in 100 mls @ 50 mls/hr IV.SIG Q2H PRN PRN Reason: For Potassium 2.8 - 3.2 mEq/L Potassium Phosphate 30 mmol/ (Sodium Chloride) 260 mls @ 42 mls/hr IV.SIG UNSCH PRN PRN Reason: SEE LABEL COMMENTS Last Infusion: 05/06/18 11:30 Dose: Infused Sodium Phosphate 30 mmol/ (Sodium Chloride) 260 mls @ 42 mls/hr IV.SIG UNSCH PRN PRN Reason: For Phosphorus < 2.5 mg/dL Last Infusion: 05/05/18 19:00 Dose: Infused Propofol (Diprivan 1000 Mg/100 Ml Inj) 1,000 mg in 100 mls @ 1.701 mls/hr IV.CONT TITRATE PRN; Protocol PRN Reason: Per Protocol Last Admin: 05/07/18 07:38 Dose: 10 mcg/kg/min, 3.4 mls/hr Fentanyl (Fentanyl 10 Mcg/Ml Premix Drip) 2,500 mcg in 250 mls @ 5 mls/hr IV.SIG TITRATE PRN; Protocol PRN Reason: Per Protocol Piperacillin/Tazobactam/Dextrose (Zosyn 4.5 Gm Premix) 4.5 gm in 100 mls @ 200 mls/hr IV.SIG Q6H [facility] Last Admin: 05/07/18 03:05 Dose: 100 mls/hr Levetiracetam 500 mg/ Sodium (Chloride) 105 mls @ 400 mls/hr IV.SIG Q12H [facility] Last Admin: 05/07/18 07:40 Dose: 100 mls/hr Dextrose (D10w Inj) 500 mls @ 84 mls/hr IV.SIG .Q5H58M [facility] Last Admin: 05/06/18 17:37 Dose: 84 mls/hr Metronidazole/Sodium Chloride (Flagyl 500 Mg Inj) 100 mls @ 100 mls/hr IV.SIG Q8H [facility] Last Admin: 05/07/18 07:44 Dose: 100 mls/hr Insulin Aspart (Novolog Insulin Correctional Sugar Inj) 0 unit SQ Q2HR [facility]; Protocol Last Admin: 05/07/18 07:44 Dose: Not Given Lactulose (Lactulose Liq) 30 ml PO BID [facility] Last Admin: 05/07/18 07:41 Dose: 30 ml Magnesium Oxide (Mag-Ox) 800 mg PO UNSCH PRN PRN Reason: For Magnesium 1.2 - 1.6 mg/dL Last Admin: 05/06/18 10:55 Dose: 800 mg Miscellaneous Medication () 1 each OROPHARYNG 0000,0400,1200,1600 [facility] Last Admin: 05/07/18 07:45 Dose: 1 each Ondansetron HCl (Zofran Inj) 4 mg IV.PUSH Q6H PRN PRN Reason: NAUSEA OR VOMITING Pantoprazole Sodium (Protonix Inj) 40 mg IV.PUSH DAILY [facility] Last Admin: 05/06/18 08:01 Dose: 40 mg Potassium Bicarb/Potassium Chloride (K-Lyte Cl Eff) 50 meq PO UNSCH PRN PRN Reason: For Potassium 3.3 - 3.5 mEq/L Potassium Phosphate (K-Phos Original) 2,000 mg PO Q4H PRN PRN Reason: Phosphorus Less Than 2.5 mg/dL Potassium Phosphate (K-Phos Original) 2,000 mg PO UNSCH PRN PRN Reason: SEE LABEL COMMENTS Senna/Docusate Sodium (Juliet-Colace) 1 tab PO BID [facility] Last Admin: 05/06/18 21:21 Dose: 1 tab Sennosides (Senokot) 17.2 mg PO Q12H PRN PRN Reason: Moderate Constipation Sodium Chloride (Ns Flush) 2 ml IV.FLUSH BID [facility] Last Admin: 05/07/18 07:41 Dose: 2 ml Sodium Chloride (Ns Flush) 2 ml IV.FLUSH PRN PRN PRN Reason: FLUSH AFTER USING IV ACCESS Allergies/Adverse Reactions: Allergies Allergy/AdvReac Type Severity Reaction Status Date / Time No Known Allergies Allergy Verified 05/03/18 09:59 Physical Exam Vital signs: Vital Signs 05/06/18 09:00 05/06/18 09:09 05/06/18 10:00 Temperature Pulse Rate 100 H 101 H 100 H Respiratory Rate 15 15 14 Blood Pressure 190/100 H 176/89 H 168/83 H Pulse Oximetry 99 99 100 05/06/18 11:00 05/06/18 12:00 05/06/18 13:00 Temperature 97.6 F Pulse Rate 87 96 H 93 H Respiratory Rate 13 16 16 Blood Pressure 194/95 H 172/80 H 178/88 H Pulse Oximetry 100 100 100 05/06/18 14:00 05/06/18 14:15 05/06/18 14:25 Temperature Pulse Rate 96 H 108 H 100 H Respiratory Rate 16 19 18 Blood Pressure 178/84 H 148/69 H Pulse Oximetry 100 100 05/06/18 15:00 05/06/18 15:26 05/06/18 16:00 Temperature 98.6 F Pulse Rate 96 H 107 H Respiratory Rate 18 24 22 Blood Pressure 145/71 H 180/95 H Pulse Oximetry 100 100 100 05/06/18 16:18 05/06/18 17:00 05/06/18 18:00 Temperature Pulse Rate 96 H 99 H 105 H Respiratory Rate 18 15 19 Blood Pressure 164/83 H 149/84 H 164/100 H Pulse Oximetry 100 100 100 05/06/18 18:11 05/06/18 18:20 05/06/18 19:00 Temperature Pulse Rate 101 H 91 H 92 H Respiratory Rate 15 16 17 Blood Pressure 180/110 H 171/87 H 157/84 H Pulse Oximetry 100 100 100 05/06/18 20:00 05/06/18 21:00 05/06/18 21:30 Temperature 98.5 F Pulse Rate 94 H 95 H 90 Respiratory Rate 13 17 17 Blood Pressure 153/85 H 165/89 H Pulse Oximetry 100 100 100 05/06/18 22:00 05/06/18 23:00 05/06/18 23:59 Temperature Pulse Rate 96 H 79 96 H Respiratory Rate 21 14 25 H Blood Pressure 169/92 H 159/84 H Pulse Oximetry 100 100 100 05/07/18 00:00 05/07/18 01:00 05/07/18 02:00 Temperature 98.5 F Pulse Rate 95 H 97 H 69 Respiratory Rate 19 20 15 Blood Pressure 185/95 H 185/89 H 151/98 H Pulse Oximetry 100 100 100 05/07/18 03:00 05/07/18 03:15 05/07/18 04:00 Temperature Pulse Rate 97 H 96 H 101 H Respiratory Rate 22 30 H 20 Blood Pressure 185/106 H 158/78 H Pulse Oximetry 100 100 05/07/18 04:11 05/07/18 05:00 05/07/18 06:00 Temperature Pulse Rate 72 69 Respiratory Rate 28 H 15 15 Blood Pressure 138/72 151/98 H Pulse Oximetry 100 100 100 05/07/18 07:00 Temperature 98 F Pulse Rate Respiratory Rate Blood Pressure Pulse Oximetry Intake & Output 05/06/18 05/07/18 05/07/18 18:59 06:59 18:59 Intake Total 2049 / 2049 1665 / 1665 100 / 100 Output Total 1250 / 1250 700 / 700 Balance 799 / 799 965 / 965 100 / 100 Intake: IV 1765 / 1765 200 / 200 100 / 100 Diprivan 1000 mg/100 ml Inj 1, 100 / 100 100 / 100 100 / 100 000 mg In 100 ml @ 5 MCG/KG/MIN 1.701 mls/hr IV.CONT TITRATE PRN Rx#:[id number] D10W Inj 500 ML @ 84 mls/hr IV. 1000 / 1000 SIG .Q5H58M [facility] Rx#:[id number] Zosyn 4.5 GM Premix 4.5 gm In 200 / 200 100 / 100 100 ml @ 200 mls/hr IV.SIG Q6H [facility] Rx#:[id number] Potassium Phosphate Inj 30 MMOL 260 / 260 In NS Inj 250 ML @ 42 mls/hr IV.SIG UNSCH PRN Rx#:[id number] Keppra Inj 500 MG In NS Inj 100 105 / 105 ML @ 400 mls/hr IV.SIG Q12H [facility] Rx#:[id number] Flagyl 500 MG Inj 100 ML @ 100 100 / 100 mls/hr IV.SIG Q8H [facility] Rx#: [id number] Tube Feeding 284 / 284 315 / 315 Other 1150 / 1150 Output: Urine Amount (Catheter) 1250 / 1250 700 / 700 Indwelling Urethral Catheter 1250 / 1250 700 / 700 Other: Date of Last Bowel Movement 05/06/18 05/06/18 # Bowel Movements 1 intubated sedated eyes to left and up - Urinary Catheter Management Straight Cath placed during this visit: yes, but has since been removed by the nurse Reason for continuing: Hourly intake/output Insertion date: 05/03/18 Insertion time: 18:24 Removal date: 05/03/18 Removal time: 15:14 Indwelling Urethral Catheter Cath placed during this visit: no Objective Laboratory Results - last 24 hr 05/06/18 05/06/18 05/06/18 03:43 09:56 11:20 WBC RBC Hgb Hct MCV MCH MCHC RDW Plt Count MPV Neut % (Auto) Lymph % (Auto) [place] % (Auto) Eos % (Auto) Baso % (Auto) Neut # (Auto) Lymph # (Auto) [place] # (Auto) Eos # (Auto) Baso # (Auto) WBC Differential Differential Comment ESR 5 Sodium Potassium Chloride Carbon Dioxide Anion Gap BUN Creatinine Estimated GFR POC Glucose 123 H Random Glucose Calcium Phosphorus Magnesium Total Bilirubin AST ALT Alkaline Phosphatase Total Protein Total Protein (PEP) Albumin Stl C.difficile Tox PCR Positive H St C. diff Tox Epid 027 Negative 05/06/18 05/06/18 05/06/18 11:33 12:15 12:48 WBC RBC Hgb Hct MCV MCH MCHC RDW Plt Count MPV Neut % (Auto) Lymph % (Auto) [place] % (Auto) Eos % (Auto) Baso % (Auto) Neut # (Auto) Lymph # (Auto) [place] # (Auto) Eos # (Auto) Baso # (Auto) WBC Differential Differential Comment ESR Sodium Potassium Chloride Carbon Dioxide Anion Gap BUN Creatinine Estimated GFR POC Glucose 66 L 153 H Random Glucose Calcium Phosphorus Magnesium Total Bilirubin AST ALT Alkaline Phosphatase Total Protein Total Protein (PEP) 6.6 Albumin Stl C.difficile Tox PCR St C. diff Tox Epid 027 05/06/18 05/06/18 05/06/18 14:06 15:55 16:20 WBC RBC Hgb Hct MCV MCH MCHC RDW Plt Count MPV Neut % (Auto) Lymph % (Auto) [place] % (Auto) Eos % (Auto) Baso % (Auto) Neut # (Auto) Lymph # (Auto) [place] # (Auto) Eos # (Auto) Baso # (Auto) WBC Differential Differential Comment ESR Sodium Potassium 3.3 L Chloride Carbon Dioxide Anion Gap BUN Creatinine Estimated GFR POC Glucose 145 H 131 H Random Glucose Calcium Phosphorus 2.5 Magnesium Total Bilirubin AST ALT Alkaline Phosphatase Total Protein Total Protein (PEP) Albumin Stl C.difficile Tox PCR St C. diff Tox Epid 027 05/06/18 05/06/18 05/06/18 18:23 20:38 21:53 WBC RBC Hgb Hct MCV MCH MCHC RDW Plt Count MPV Neut % (Auto) Lymph % (Auto) [place] % (Auto) Eos % (Auto) Baso % (Auto) Neut # (Auto) Lymph # (Auto) [place] # (Auto) Eos # (Auto) Baso # (Auto) WBC Differential Differential Comment ESR Sodium Potassium Chloride Carbon Dioxide Anion Gap BUN Creatinine Estimated GFR POC Glucose 116 H 77 88 Random Glucose Calcium Phosphorus Magnesium Total Bilirubin AST ALT Alkaline Phosphatase Total Protein Total Protein (PEP) Albumin Stl C.difficile Tox PCR St C. diff Tox Epid 027 05/07/18 05/07/18 05/07/18 01:02 02:43 04:00 WBC RBC Hgb Hct MCV MCH MCHC RDW Plt Count MPV Neut % (Auto) Lymph % (Auto) [place] % (Auto) Eos % (Auto) Baso % (Auto) Neut # (Auto) Lymph # (Auto) [place] # (Auto) Eos # (Auto) Baso # (Auto) WBC Differential Differential Comment ESR Sodium Potassium Chloride Carbon Dioxide Anion Gap BUN Creatinine Estimated GFR POC Glucose 77 66 L 109 Random Glucose Calcium Phosphorus Magnesium Total Bilirubin AST ALT Alkaline Phosphatase Total Protein Total Protein (PEP) Albumin Stl C.difficile Tox PCR St C. diff Tox Epid 027 05/07/18 05/07/18 05/07/18 05:00 05:00 07:02 WBC 12.9 H RBC 3.21 L Hgb 10.0 L Hct 30.1 L MCV 93.6 MCH 31.0 MCHC 33.1 RDW 14.2 Plt Count 186 MPV 8.1 Neut % (Auto) 94.3 H Lymph % (Auto) 2.5 L [place] % (Auto) 3.2 Eos % (Auto) 0.0 Baso % (Auto) 0.0 Neut # (Auto) 12.2 H Lymph # (Auto) 0.3 L [place] # (Auto) 0.4 Eos # (Auto) 0.0 Baso # (Auto) 0.0 WBC Differential . Differential Comment Auto diff final ESR Sodium 146 H Potassium 3.2 L Chloride 111 H Carbon Dioxide 25.1 Anion Gap 10 BUN 7 Creatinine 1.30 Estimated GFR 65 L POC Glucose 112 H Random Glucose 153 H Calcium 7.9 L Phosphorus 2.6 Magnesium 1.7 Total Bilirubin 0.3 AST 22 ALT 17 Alkaline Phosphatase 70 Total Protein 6.2 L Total Protein (PEP) Albumin 2.3 L Stl C.difficile Tox PCR St C. diff Tox Epid 027 Microbiology 05/03/18 17:35 Aerobic Blood Culture - Preliminary Blood - Peripheral No growth in 3 days Anaerobic Blood Culture - Preliminary No growth in 3 days 05/03/18 17:40 Aerobic Blood Culture - Preliminary Blood - Peripheral No growth in 3 days Anaerobic Blood Culture - Preliminary No growth in 3 days Review/Management - Review/Management Plan: inmp try and dc sedatives
[2018-05-07] MEDS: Dextrose 10% in Water Inj 500 ML IV.SIG SCH ×4 (08:54→20:43)
[2018-05-07] MEDS: Chlorhexidine 0.12% Oral Kit 15 ML UDC OROPHARYNG SCH ×2 (08:55→20:06)
[2018-05-07] MEDS: Heparin - SQ 10,000 UNITS/ML Vial SQ SCH ×2 (08:55→20:06)
[2018-05-07] MEDS: Pantoprazole Inj 40 MG Vial IV.PUSH SCH (08:56)
[2018-05-07] MEDS: Potassium Chlor 40 mEq Premix 40 MEQ/100 ML PIGGYBACK IV.SIG PRN ×2 (08:57→13:30)
[2018-05-07] MEDS: Carboxymethylcellulose 0.5% Opth Drops 15 ML Bottle EACH EYE SCH ×2 (08:57→20:06)
[2018-05-07] MEDS: Senna/Docusate Sodium 8.6/50 MG Tablet PO SCH ×2 (09:22→20:06)
--- NOTE | 2018-05-07 09:45 | P.CONID ---
History of Present Illness Service: Infectious Disease Consult date: 05/07/18 Requesting Physician: Judith Amin Reason for Consult: Evaluate patient with UTI and C. difficile colitis Primary Care Provider: Marce Comer MD Chief Complaint: Seizure, altered mental status History of Present Illness: Patient seen and examined. Records reviewed. Patient is a 78-year-old male, presented to the emergency room complaining of 6- month history of worsening generalized weakness. There is been poor p.o. intake , and there is mention that he was almost homeless. He did not have any abdominal pain, diarrhea, nausea or vomiting patient has previous history of BPH , prostate cancer, status post TURP, and he does self-catheterization. In the ED he had CT of the brain which did not show any acute process. He had electrolyte imbalance. While in the ED he apparently had a witnessed seizure, and post ictal he was quite confused and required intubation. Patient has remained intubated since. He has not been febrile. His urinalysis showed some pyuria. Urine culture is growing Klebsiella. He also started having diarrhea, and stool for C. difficile came back positive. His white count is mildly elevated today to 12,000. Patient currently remains on the vent. He is awake and following commands. His hemodynamics are stable. He is afebrile. He has a rectal bag and has liquid stool. Infectious disease consultation has been requested to assist with evaluation and treatment of his UTI, and C. difficile colitis. Review of Systems unobtainable due to endotracheal tube PMFSH - History History Provided By: Patient - Medical History Medical History: Medical History (Last Reviewed 05/07/18 @ 09:39 by Gabriella Hammond MD) Alcohol use Gastroesophageal reflux disease HTN (hypertension) Hypomagnesemia Osteoarthritis Tetrahydrocannabinol (THC) use disorder, mild, abuse Cocaine abuse in remission Prostate cancer TIA (transient ischemic attack) Urinary retention due to benign prostatic hyperplasia - Surgical History Surgical History: Surgical History (Last Reviewed 05/07/18 @ 09:39 by Gabriella Hammond MD) H/O cystoscopy History of ERCP History of esophagogastroduodenoscopy (EGD) S/P TURP - Family History Family History: Family History (Last Reviewed 05/07/18 @ 09:39 by Gabriella Hammond MD) Other Family history unknown - Tobacco History Second Hand Smoke Exposure: No Tobacco Use In Past 30 Days: Yes Smoking Status: Current every day smoker Tobacco Type: Cigarettes - Alcohol History How Often Do You Have a Drink Containing Alcohol: 2 to 4 times a month - Substance Use History Substance History: Past History - Travel History Recent Travel in the [place] Within the Last 8 Weeks: No Recent Travel Out of the Country Within the Last 8 Weeks: No - Immunization History Tetanus Immunization: <5 Years Medications and Allergies Active Medications: Active Medications Acetaminophen (Tylenol) 650 mg PO Q6H PRN PRN Reason: Fever >101f Al Hydroxide/Mg Hydroxide (Milk Of Mauri Likristin) 30 ml PO Q12H PRN PRN Reason: Mild Constipation Albuterol (Albuterol Neb (Prn)) 2.5 mg NEB Q2HR NEB PRN PRN Reason: SHORTNESS OF BREATH/WHEEZING Albuterol (Duoneb Neb (Arabella)) 1 ampul NEB Q4HR NEB [facility] Last Admin: 05/07/18 03:15 Dose: 1 ampul Artificial Tears (Refresh Tears 0.5% Opth Drops) 1 drop EACH EYE BID [facility] Last Admin: 05/07/18 08:57 Dose: 1 drop Bisacodyl (Dulcolax Supp) 10 mg RECTAL DAILY PRN PRN Reason: SEVERE CONSITIPATION Chlorhexidine Gluconate (Peridex 0.12% Oral Kit) 15 ml OROPHARYNG BID@0800, 2000 [facility] Last Admin: 05/07/18 08:55 Dose: 15 ml Chlorhexidine Gluconate (Chlorhexidine 2% Cloth) 3 pack TOPICAL DAILY@0400 [facility] Stop: 05/09/18 03:59 Last Admin: 05/07/18 07:45 Dose: 3 pack Chlorhexidine Gluconate (Chlorhexidine 2% Cloth) 3 pack TOPICAL DAILY@0400 PRN PRN Reason: Extra cloth needed Stop: 05/09/18 03:59 Dextrose (D50w Vial) 50 ml IV.PUSH UNSCH PRN PRN Reason: PER HYPOGLYCEMIA PROTOCOL Last Admin: 05/07/18 03:05 Dose: 50 ml Diltiazem HCl (Cardizem) 60 mg PO QID [facility] Last Admin: 05/07/18 08:56 Dose: 60 mg Glucagon (Glucagon Inj) 1 mg OTHER PRN PRN PRN Reason: for Hypoglycemia Protocol Heparin Sodium (Porcine) (Heparin Inj) 5,000 units SQ Q12H [facility] Last Admin: 05/07/18 08:55 Dose: 5,000 units Hydrocortisone Sodium Succinate (Solucortef Inj) 100 mg IV.PUSH Q8HR [facility] Last Admin: 05/07/18 07:39 Dose: 100 mg Magnesium Sulfate 4 gm/ Sodium (Chloride) 100 mls @ 50 mls/hr IV.SIG UNSCH PRN PRN Reason: For Magnesium 0.9 - 1.1 mg/dL Potassium Chloride (Kcl 40 Meq Premix Inj) 40 meq in 100 mls @ 25 mls/hr IV.SIG Q4H PRN PRN Reason: For Potassium 2.8 - 3.2 mEq/L Last Admin: 05/07/18 08:57 Dose: 25 mls/hr Potassium Chloride (Kcl 20 Meq Premix Inj) 20 meq in 100 mls @ 50 mls/hr IV.SIG Q2H PRN PRN Reason: For Potassium 3.3 - 3.5 mEq/L Potassium Chloride (Kcl 40 Meq Premix Inj) 40 meq in 100 mls @ 25 mls/hr IV.SIG UNSCH PRN PRN Reason: For Potassium 3.3 - 3.5 mEq/L Potassium Chloride (Kcl 20 Meq Premix Inj) 20 meq in 100 mls @ 50 mls/hr IV.SIG Q2H PRN PRN Reason: For Potassium 2.8 - 3.2 mEq/L Potassium Phosphate 30 mmol/ (Sodium Chloride) 260 mls @ 42 mls/hr IV.SIG UNSCH PRN PRN Reason: SEE LABEL COMMENTS Last Infusion: 05/06/18 11:30 Dose: Infused Sodium Phosphate 30 mmol/ (Sodium Chloride) 260 mls @ 42 mls/hr IV.SIG UNSCH PRN PRN Reason: For Phosphorus < 2.5 mg/dL Last Infusion: 05/05/18 19:00 Dose: Infused Propofol (Diprivan 1000 Mg/100 Ml Inj) 1,000 mg in 100 mls @ 1.701 mls/hr IV.CONT TITRATE PRN; Protocol PRN Reason: Per Protocol Last Admin: 05/07/18 07:38 Dose: 10 mcg/kg/min, 3.4 mls/hr Fentanyl (Fentanyl 10 Mcg/Ml Premix Drip) 2,500 mcg in 250 mls @ 5 mls/hr IV.SIG TITRATE PRN; Protocol PRN Reason: Per Protocol Piperacillin/Tazobactam/Dextrose (Zosyn 4.5 Gm Premix) 4.5 gm in 100 mls @ 200 mls/hr IV.SIG Q6H [facility] Last Admin: 05/07/18 08:55 Dose: 100 mls/hr Levetiracetam 500 mg/ Sodium (Chloride) 105 mls @ 400 mls/hr IV.SIG Q12H [facility] Last Admin: 05/07/18 07:40 Dose: 100 mls/hr Dextrose (D10w Inj) 500 mls @ 84 mls/hr IV.SIG .Q5H58M [facility] Last Admin: 05/07/18 08:54 Dose: 84 mls/hr Metronidazole/Sodium Chloride (Flagyl 500 Mg Inj) 100 mls @ 100 mls/hr IV.SIG Q8H [facility] Last Admin: 05/07/18 08:55 Dose: 100 mls/hr Insulin Aspart (Novolog Insulin Correctional Sugar Inj) 0 unit SQ Q2HR [facility]; Protocol Last Admin: 05/07/18 08:00 Dose: Not Given Lactulose (Lactulose Liq) 30 ml PO BID [facility] Last Admin: 05/07/18 09:22 Dose: 30 ml Magnesium Oxide (Mag-Ox) 800 mg PO UNSCH PRN PRN Reason: For Magnesium 1.2 - 1.6 mg/dL Last Admin: 05/06/18 10:55 Dose: 800 mg Miscellaneous Medication () 1 each OROPHARYNG 0000,0400,1200,1600 [facility] Last Admin: 05/07/18 07:45 Dose: 1 each Ondansetron HCl (Zofran Inj) 4 mg IV.PUSH Q6H PRN PRN Reason: NAUSEA OR VOMITING Pantoprazole Sodium (Protonix Inj) 40 mg IV.PUSH DAILY [facility] Last Admin: 05/07/18 08:56 Dose: 40 mg Potassium Bicarb/Potassium Chloride (K-Lyte Cl Eff) 50 meq PO UNSCH PRN PRN Reason: For Potassium 3.3 - 3.5 mEq/L Potassium Phosphate (K-Phos Original) 2,000 mg PO Q4H PRN PRN Reason: Phosphorus Less Than 2.5 mg/dL Potassium Phosphate (K-Phos Original) 2,000 mg PO UNSCH PRN PRN Reason: SEE LABEL COMMENTS Senna/Docusate Sodium (Juliet-Colace) 1 tab PO BID [facility] Last Admin: 05/07/18 09:22 Dose: Not Given Sennosides (Senokot) 17.2 mg PO Q12H PRN PRN Reason: Moderate Constipation Sodium Chloride (Ns Flush) 2 ml IV.FLUSH BID [facility] Last Admin: 05/07/18 08:56 Dose: 2 ml Sodium Chloride (Ns Flush) 2 ml IV.FLUSH PRN PRN PRN Reason: FLUSH AFTER USING IV ACCESS Allergies Allergy/AdvReac Type Severity Reaction Status Date / Time No Known Allergies Allergy Verified 05/03/18 09:59 Home Medications Medication Instructions Recorded Confirmed Type No Known Home Medications 05/03/18 05/03/18 History Exam Vital signs: Vital Signs 05/06/18 10:00 05/06/18 11:00 05/06/18 12:00 Temperature 97.6 F Pulse Rate 100 H 87 96 H Respiratory Rate 14 13 16 Blood Pressure 168/83 H 194/95 H 172/80 H Pulse Oximetry 100 100 100 05/06/18 13:00 05/06/18 14:00 05/06/18 14:15 Temperature Pulse Rate 93 H 96 H 108 H Respiratory Rate 16 16 19 Blood Pressure 178/88 H 178/84 H Pulse Oximetry 100 100 05/06/18 14:25 05/06/18 15:00 05/06/18 15:26 Temperature Pulse Rate 100 H 96 H Respiratory Rate 18 18 24 Blood Pressure 148/69 H 145/71 H Pulse Oximetry 100 100 100 05/06/18 16:00 05/06/18 16:18 05/06/18 17:00 Temperature 98.6 F Pulse Rate 107 H 96 H 99 H Respiratory Rate 22 18 15 Blood Pressure 180/95 H 164/83 H 149/84 H Pulse Oximetry 100 100 100 05/06/18 18:00 05/06/18 18:11 05/06/18 18:20 Temperature Pulse Rate 105 H 101 H 91 H Respiratory Rate 19 15 16 Blood Pressure 164/100 H 180/110 H 171/87 H Pulse Oximetry 100 100 100 05/06/18 19:00 05/06/18 20:00 05/06/18 21:00 Temperature 98.5 F Pulse Rate 92 H 94 H 95 H Respiratory Rate 17 13 17 Blood Pressure 157/84 H 153/85 H 165/89 H Pulse Oximetry 100 100 100 05/06/18 21:30 05/06/18 22:00 05/06/18 23:00 Temperature Pulse Rate 90 96 H 79 Respiratory Rate 17 21 14 Blood Pressure 169/92 H 159/84 H Pulse Oximetry 100 100 100 05/06/18 23:59 05/07/18 00:00 05/07/18 01:00 Temperature 98.5 F Pulse Rate 96 H 95 H 97 H Respiratory Rate 25 H 19 20 Blood Pressure 185/95 H 185/89 H Pulse Oximetry 100 100 100 05/07/18 02:00 05/07/18 03:00 05/07/18 03:15 Temperature Pulse Rate 69 97 H 96 H Respiratory Rate 15 22 30 H Blood Pressure 151/98 H 185/106 H Pulse Oximetry 100 100 05/07/18 04:00 05/07/18 04:11 05/07/18 05:00 Temperature Pulse Rate 101 H 72 Respiratory Rate 20 28 H 15 Blood Pressure 158/78 H 138/72 Pulse Oximetry 100 100 100 05/07/18 06:00 05/07/18 07:00 Temperature 98 F Pulse Rate 69 Respiratory Rate 15 Blood Pressure 151/98 H Pulse Oximetry 100 Intake & Output 05/06/18 05/07/18 05/07/18 18:59 06:59 18:59 Intake Total 2049 / 2049 2265 / 2265 200 / 200 Output Total 1250 / 1250 700 / 700 Balance 799 / 799 1565 / 1565 200 / 200 Intake: IV 1765 / 1765 800 / 800 200 / 200 Diprivan 1000 mg/100 ml Inj 1, 100 / 100 100 / 100 100 / 100 000 mg In 100 ml @ 5 MCG/KG/MIN 1.701 mls/hr IV.CONT TITRATE PRN Rx#:[id number] D10W Inj 500 ML @ 84 mls/hr IV. 1000 / 1000 500 / 500 SIG .Q5H58M [facility] Rx#:[id number] Zosyn 4.5 GM Premix 4.5 gm In 200 / 200 200 / 200 100 ml @ 200 mls/hr IV.SIG Q6H [facility] Rx#:[id number] Potassium Phosphate Inj 30 MMOL 260 / 260 In NS Inj 250 ML @ 42 mls/hr IV.SIG UNSCH PRN Rx#:[id number] Keppra Inj 500 MG In NS Inj 100 105 / 105 ML @ 400 mls/hr IV.SIG Q12H [facility] Rx#:[id number] Flagyl 500 MG Inj 100 ML @ 100 100 / 100 100 / 100 mls/hr IV.SIG Q8H [facility] Rx#: [id number] Tube Feeding 284 / 284 315 / 315 Other 1150 / 1150 Output: Urine Amount (Catheter) 1250 / 1250 700 / 700 Indwelling Urethral Catheter 1250 / 1250 700 / 700 Other: Date of Last Bowel Movement 05/06/18 05/06/18 # Bowel Movements 1 Narrative: Physical Examination GENERAL: Patient is a thin, well-developed male, awake on the vent, following some commands, not in respiratory distress. SKIN: Cool and dry. No generalized rash, no ecchymoses and no evidence of embolic lesions. HEAD: Atraumatic. Normocephalic. No temporal wasting, or tenderness. EYES: [place] conjunctiva. No petechia or hemorrhage. Pupils equal, round and reactive to light. No scleral icterus. No injection or drainage. EARS, NOSE AND THROAT: Nose without bleeding or purulent nasal discharge. No sinus tenderness. Mucous membranes pink and moist. Poor dentition. Endotracheal tube is in the mouth. NECK: Trachea midline. Supple and not tender, no meningeal signs CARDIOVASCULAR: Regular rate and rhythm. No murmurs, rubs or gallops heard RESPIRATORY: Coarse breath sounds bilaterally, decreased at the bases. ABDOMEN: Soft, flat, non-tender, nondistended. Bowel sounds present and normoactive. No guarding. No rebound. No organomegaly. EXTREMITIES: No clubbing, cyanosis, or edema. No joint effusion, has good ROM. No calf tenderness. NEUROLOGICAL: Awake and following some commands. PSYCHIATRIC: Unable to assess. : Buchanan catheter in place, urine looks clear LINE: No evidence of infection Results - Labs CBC & Chem 7: 05/07/18 05:00 05/07/18 05:00 Labs: Laboratory Results - last 24 hr 05/06/18 05/06/18 05/06/18 03:43 09:56 11:20 WBC RBC Hgb Hct MCV MCH MCHC RDW Plt Count MPV Neut % (Auto) Lymph % (Auto) [place] % (Auto) Eos % (Auto) Baso % (Auto) Neut # (Auto) Lymph # (Auto) [place] # (Auto) Eos # (Auto) Baso # (Auto) WBC Differential Differential Comment ESR 5 Sodium Potassium Chloride Carbon Dioxide Anion Gap BUN Creatinine Estimated GFR POC Glucose 123 H Random Glucose Calcium Phosphorus Magnesium Total Bilirubin AST ALT Alkaline Phosphatase Total Protein Total Protein (PEP) Albumin Stl C.difficile Tox PCR Positive H St C. diff Tox Epid 027 Negative 05/06/18 05/06/18 05/06/18 11:33 12:15 12:48 WBC RBC Hgb Hct MCV MCH MCHC RDW Plt Count MPV Neut % (Auto) Lymph % (Auto) [place] % (Auto) Eos % (Auto) Baso % (Auto) Neut # (Auto) Lymph # (Auto) [place] # (Auto) Eos # (Auto) Baso # (Auto) WBC Differential Differential Comment ESR Sodium Potassium Chloride Carbon Dioxide Anion Gap BUN Creatinine Estimated GFR POC Glucose 66 L 153 H Random Glucose Calcium Phosphorus Magnesium Total Bilirubin AST ALT Alkaline Phosphatase Total Protein Total Protein (PEP) 6.6 Albumin Stl C.difficile Tox PCR St C. diff Tox Epid 027 05/06/18 05/06/18 05/06/18 14:06 15:55 16:20 WBC RBC Hgb Hct MCV MCH MCHC RDW Plt Count MPV Neut % (Auto) Lymph % (Auto) [place] % (Auto) Eos % (Auto) Baso % (Auto) Neut # (Auto) Lymph # (Auto) [place] # (Auto) Eos # (Auto) Baso # (Auto) WBC Differential Differential Comment ESR Sodium Potassium 3.3 L Chloride Carbon Dioxide Anion Gap BUN Creatinine Estimated GFR POC Glucose 145 H 131 H Random Glucose Calcium Phosphorus 2.5 Magnesium Total Bilirubin AST ALT Alkaline Phosphatase Total Protein Total Protein (PEP) Albumin Stl C.difficile Tox PCR St C. diff Tox Epid 027 05/06/18 05/06/18 05/06/18 18:23 20:38 21:53 WBC RBC Hgb Hct MCV MCH MCHC RDW Plt Count MPV Neut % (Auto) Lymph % (Auto) [place] % (Auto) Eos % (Auto) Baso % (Auto) Neut # (Auto) Lymph # (Auto) [place] # (Auto) Eos # (Auto) Baso # (Auto) WBC Differential Differential Comment ESR Sodium Potassium Chloride Carbon Dioxide Anion Gap BUN Creatinine Estimated GFR POC Glucose 116 H 77 88 Random Glucose Calcium Phosphorus Magnesium Total Bilirubin AST ALT Alkaline Phosphatase Total Protein Total Protein (PEP) Albumin Stl C.difficile Tox PCR St C. diff Tox Epid 027 05/07/18 05/07/18 05/07/18 01:02 02:43 04:00 WBC RBC Hgb Hct MCV MCH MCHC RDW Plt Count MPV Neut % (Auto) Lymph % (Auto) [place] % (Auto) Eos % (Auto) Baso % (Auto) Neut # (Auto) Lymph # (Auto) [place] # (Auto) Eos # (Auto) Baso # (Auto) WBC Differential Differential Comment ESR Sodium Potassium Chloride Carbon Dioxide Anion Gap BUN Creatinine Estimated GFR POC Glucose 77 66 L 109 Random Glucose Calcium Phosphorus Magnesium Total Bilirubin AST ALT Alkaline Phosphatase Total Protein Total Protein (PEP) Albumin Stl C.difficile Tox PCR St C. diff Tox Epid 027 05/07/18 05/07/18 05/07/18 05:00 05:00 07:02 WBC 12.9 H RBC 3.21 L Hgb 10.0 L Hct 30.1 L MCV 93.6 MCH 31.0 MCHC 33.1 RDW 14.2 Plt Count 186 MPV 8.1 Neut % (Auto) 94.3 H Lymph % (Auto) 2.5 L [place] % (Auto) 3.2 Eos % (Auto) 0.0 Baso % (Auto) 0.0 Neut # (Auto) 12.2 H Lymph # (Auto) 0.3 L [place] # (Auto) 0.4 Eos # (Auto) 0.0 Baso # (Auto) 0.0 WBC Differential . Differential Comment Auto diff final ESR Sodium 146 H Potassium 3.2 L Chloride 111 H Carbon Dioxide 25.1 Anion Gap 10 BUN 7 Creatinine 1.30 Estimated GFR 65 L POC Glucose 112 H Random Glucose 153 H Calcium 7.9 L Phosphorus 2.6 Magnesium 1.7 Total Bilirubin 0.3 AST 22 ALT 17 Alkaline Phosphatase 70 Total Protein 6.2 L Total Protein (PEP) Albumin 2.3 L Stl C.difficile Tox PCR St C. diff Tox Epid 027 05/07/18 09:01 WBC RBC Hgb Hct MCV MCH MCHC RDW Plt Count MPV Neut % (Auto) Lymph % (Auto) [place] % (Auto) Eos % (Auto) Baso % (Auto) Neut # (Auto) Lymph # (Auto) [place] # (Auto) Eos # (Auto) Baso # (Auto) WBC Differential Differential Comment ESR Sodium Potassium Chloride Carbon Dioxide Anion Gap BUN Creatinine Estimated GFR POC Glucose 97 Random Glucose Calcium Phosphorus Magnesium Total Bilirubin AST ALT Alkaline Phosphatase Total Protein Total Protein (PEP) Albumin Stl C.difficile Tox PCR St C. diff Tox Epid 027 - Imaging Impressions Chest X-Ray 05/07/18 07:16 CONCLUSION: Support apparatus in good position. Minimal bibasilar parenchymal changes. Cervical Spine CT 05/03/18 12:37 CONCLUSION: 1. 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 2. No acute cervical spine fracture identified. Head CT 05/03/18 12:37 CONCLUSION: 1. Microvascular ischemic demyelinative change. No acute intracranial abnormality identified. Abdomen/Pelvis CT 05/04/18 00:00 CONCLUSION: 1. Thick walled urinary bladder with a Buchanan catheter. Similar findings were seen on the prior 2 studies. 2. No obstruction or acute inflammatory changes are seen of the gastrointestinal tract. 3. Mildly distended stomach despite presence of nasogastric tube. There is questionable wall thickening, especially greater curvature of the body. This is nonspecific. Chronic hiatal hernia. 4. Cholelithiasis again demonstrated. No associated inflammatory changes are seen. No duct stone or ductal dilatation. 5. Small effusions of the visualized lung bases and mild body wall edema/ anasarca. 6. Mild bibasilar atelectasis. Head MRI 05/04/18 00:00 CONCLUSION: 1. Moderate to severe chronic white matter ischemic changes. No recent infarct. 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 2. Sinus mucosal thickening. Assessment and Plan - Plan Impression Klebsiella UTI, does self catheterization C difficile colitis Respiratory failure Seizure Drug screen (+) cocaine Recommendation Give 7 days Abx for UTI - will narrow down coverage and give Rocephin PO vanco for C diff and give 14 days Monitor progress Follow CBC Vent management per CCM I will follow along with you Thank you for this consultation
[2018-05-07 13:16] LABS: ABG Base Excess -0.1 mmol/L (-2-2); ABG PCO2 34 mmHg (38-42); ABG PO2 148 mmHG (61-120)
[2018-05-07 16:08] LABS: Anti-Nuclear Antibody Screen Pos (Neg)
[2018-05-08] MEDS: Propofol 1000 mg/100 ml Inj 1,000 MG/100 ML BOTTLE IV.CONT PRN (01:35)
[2018-05-08] MEDS: Insulin NovoLOG Aspart Correctional Sugar Inj SQ SCH ×10 (02:24→22:34)
[2018-05-08] MEDS: Dextrose 10% in Water Inj 500 ML IV.SIG SCH ×4 (03:51→23:19)
[2018-05-08] MEDS: Chlorhexidine Gluconate 2% 1 Pack (2 Cloths) TOPICAL SCH (03:52)
[2018-05-08] MEDS: Oral Hygiene Kit OROPHARYNG SCH ×4 (03:52→19:23)
[2018-05-08 05:13] LABS: Baso % (Auto) 0.2 % (0.0-2.0); Hematocrit 32.4 % (39.0-51.0); Hemoglobin 10.7 gm/dL (13.0-17.0); Lymph # (Auto) 0.5 th/mm3 (1.0-4.8); Lymph % (Auto) 3.7 % (9.0-44.0); Mean Corpuscular HGB Conc 32.9 % (32.0-36.0); Mean Corpuscular Hemoglobin 30.7 pg (27.0-34.0); Mean Corpuscular Volume 93.2 fL (80.0-100.0); Mean Platelet Volume 8.2 fL (7.0-11.0); Mono # (Auto) 0.3 th/mm3 (0.0-0.9); Mono % (Auto) 2.3 % (0.0-8.0); Neut # (Auto) 11.8 th/mm3 (1.8-7.7); Neut % (Auto) 93.8 % (16.0-70.0); Platelet Count 206 th/mm3 (150-450); Red Blood Count 3.48 mil/mm3 (4.50-5.90); Red Cell Distribution Width 14.4 % (11.6-17.2); White Blood Count 12.6 th/mm3 (4.0-11.0)
[2018-05-08 05:18] LABS: Albumin 2.5 g/dL (3.4-5.0); Anion Gap 7 meq/L (5-15); Aspartate Aminotransferase 23 U/L (15-37); Blood Urea Nitrogen 11 mg/dL (7-18); Calcium 8.4 mg/dL (8.5-10.1); Carbon Dioxide 26.9 meq/L (21.0-32.0); Chloride 111 meq/L (98-107); Glomerular Filtration Rate 73 mL/min (>89); Glucose,Random 114 mg/dL (74-106); Magnesium 1.9 mg/dL (1.5-2.5); Potassium 3.7 meq/L (3.5-5.1); Sodium 145 meq/L (136-145)
[2018-05-08 05:19] LABS: Alanine Aminotransferase 21 U/L (12-78); Phosphorus 2.4 mg/dL (2.5-4.9)
[2018-05-08 05:21] LABS: Alkaline Phosphatase 71 U/L (45-117); Total Protein 6.6 g/dL (6.4-8.2)
[2018-05-08] MEDS: Hydrocortisone Sod Succinate 100 MG Vial IV.PUSH SCH ×3 (06:38→19:24)
[2018-05-08] MEDS: Heparin - SQ 10,000 UNITS/ML Vial SQ SCH ×2 (08:25→20:08)
[2018-05-08] MEDS: dilTIAZem 60 MG Tablet PO SCH ×4 (08:26→20:09)
[2018-05-08] MEDS: Carboxymethylcellulose 0.5% Opth Drops 15 ML Bottle EACH EYE SCH ×2 (08:26→20:10)
[2018-05-08] MEDS: Pantoprazole Inj 40 MG Vial IV.PUSH SCH (08:26)
[2018-05-08] MEDS: Potassium Phosphate 500 MG Soluble Tablet PO PRN ×2 (08:27→12:25)
[2018-05-08] MEDS: Senna/Docusate Sodium 8.6/50 MG Tablet PO SCH ×2 (08:27→20:10)
[2018-05-08] MEDS: Chlorhexidine 0.12% Oral Kit 15 ML UDC OROPHARYNG SCH ×2 (08:27→20:09)
[2018-05-08] MEDS ORDERED: Hydrocortisone Sod Succinate 100 MG Vial IV.PUSH SCH (10:43)
--- NOTE | 2018-05-08 11:24 | P.PNCC ---
Subjective Subjective Remarks/Hospital Course: This is a 78-year-old -[place] male. Date of admission 05/03/2018. Past medical history includes history of cocaine, THC, alcohol abuse, history of TIA, gastroparesis, hypertension, BPH, prostate cancer status post TURP. Patient self caths. History of hypomagnesia. [facility] with history of hypertension presents to the emergency department for evaluation of weakness for 6 months. He says that he was in this emergency department approximately 6 months ago and since then, he has felt weak. He says that he has had poor oral intake and is 'almost homeless'. Reported no abdominal symptoms including diarrhea, nausea or vomiting per Patient had a essentially negative CT of the brain. When laboratories returned , was noted to have a magnesium 0.4. Potassium 3.1. Calcium 7.4. Elevated ammonia level. Patient received potassium. When the patient about received magnesium, patient had a witnessed seizure. Fell in the form struck it. Became more acutely confused required intubation. Repeat brain CT revealed no acute findings. EKG revealed no prolonged QTc interval. Currently receiving 4 g mag sulfate IV x1 now. 05/04 Patient is sedated with Diprivan and intubated. Afebrile. Hypoglycemic overnight with BC 49 given 1 amp D50, afebrile. 05/05 Patient remains intubated and sedated with Diprivan, afebrile. MRI brain last night showed no acute findings. Hypoglycemic overnight given 1 amp D50 x2. 05/06 Patient remains intubated on low dose sedation ( Diprivan 10 mics). Afebrile. 05/07 Patient is sedated with Diprivan and intubated. Afebrile. 05/08: more awake. no seizures. follows commands. tolerating SBT. Objective Vital Signs / I&O: Vital Signs 05/07/18 12:00 05/07/18 12:09 05/07/18 13:00 Temperature 36.7 C Pulse Rate 93 H 92 H 85 Respiratory Rate 15 16 13 Blood Pressure 166/98 H 162/87 H Pulse Oximetry 96 100 05/07/18 14:00 05/07/18 15:00 05/07/18 15:05 Temperature Pulse Rate 93 H 100 H 97 H Respiratory Rate 16 19 14 Blood Pressure 171/91 H 191/100 H 174/95 H Pulse Oximetry 100 100 05/07/18 16:00 05/07/18 16:15 05/07/18 17:00 Temperature Pulse Rate 89 97 H 95 H Respiratory Rate 14 18 16 Blood Pressure 153/84 H 169/92 H Pulse Oximetry 100 100 100 05/07/18 18:00 05/07/18 18:10 05/07/18 18:20 Temperature 36.9 C Pulse Rate 100 H 93 H Respiratory Rate 13 20 Blood Pressure 194/123 H 181/100 H Pulse Oximetry 100 100 100 05/07/18 18:35 05/07/18 19:00 05/07/18 20:00 Temperature 36.9 C Pulse Rate 95 H 95 H 65 Respiratory Rate 22 18 15 Blood Pressure 182/97 H 171/94 H 96/54 L Pulse Oximetry 100 100 100 05/07/18 21:00 05/07/18 21:19 05/07/18 22:00 Temperature Pulse Rate 63 85 Respiratory Rate 15 15 14 Blood Pressure 103/59 L 165/85 H Pulse Oximetry 100 100 100 05/07/18 23:00 05/08/18 00:00 05/08/18 01:00 Temperature 37.0 C Pulse Rate 79 82 80 Respiratory Rate 15 15 16 Blood Pressure 150/77 H 155/83 H 166/84 H Pulse Oximetry 100 100 100 05/08/18 01:35 05/08/18 02:00 05/08/18 03:00 Temperature Pulse Rate 82 85 Respiratory Rate 17 15 18 Blood Pressure 169/88 H 174/95 H Pulse Oximetry 100 100 100 05/08/18 04:00 05/08/18 05:00 05/08/18 05:28 Temperature 37.1 C Pulse Rate 79 75 Respiratory Rate 13 15 19 Blood Pressure 185/92 H 176/91 H Pulse Oximetry 100 100 100 05/08/18 06:00 05/08/18 07:00 05/08/18 07:04 Temperature Pulse Rate 90 80 76 Respiratory Rate 17 17 17 Blood Pressure 191/127 H 192/98 H 192/95 H Pulse Oximetry 100 100 100 05/08/18 07:27 05/08/18 11:10 Temperature Pulse Rate Respiratory Rate 19 14 Blood Pressure Pulse Oximetry 100 100 Intake & Output 05/07/18 05/08/18 05/08/18 18:59 06:59 18:59 Intake Total 1305 / 1305 2045 / 2045 Output Total 1400 / 1400 1300 / 1300 Balance -95 / -95 745 / 745 Weight 63 kg Intake: IV 1305 / 1305 1305 / 1305 Diprivan 1000 mg/100 ml Inj 1, 200 / 200 100 / 100 000 mg In 100 ml @ 5 MCG/KG/MIN 1.701 mls/hr IV.CONT TITRATE PRN Rx#:[id number] D10W Inj 500 ML @ 84 mls/hr IV. 500 / 500 1000 / 1000 SIG .Q5H58M [facility] Rx#:[id number] Zosyn 4.5 GM Premix 4.5 gm In 100 / 100 100 ml @ 200 mls/hr IV.SIG Q6H [facility] Rx#:[id number] KCl 40 mEq Premix Inj 40 meq In 100 / 100 100 / 100 100 ml @ 25 mls/hr IV.SIG Q4H [facility]N Rx#:[id number] Rocephin Inj 2,000 MG In NS Inj 100 / 100 100 ML @ 200 mls/hr IV.SIG Q24H [facility] Rx#:[id number] Keppra Inj 500 MG In NS Inj 100 105 / 105 105 / 105 ML @ 400 mls/hr IV.SIG Q12H [facility] Rx#:[id number] Flagyl 500 MG Inj 100 ML @ 100 200 / 200 mls/hr IV.SIG Q8H [facility] Rx#: [id number] Tube Feeding 620 / 620 Water Bolus Amount 120 / 120 Output: Urine 1400 / 1400 1300 / 1300 Other: Date of Last Bowel Movement 05/07/18 05/08/18 05/08/18 # Incontinent Bowel Movements 3 1 Result Diagrams: 05/08/18 04:10 05/08/18 04:10 Objective Remarks: GENERAL: Patient is 78yo intubated and sedated SKIN: Warm and dry. HEAD: Normocephalic. EYES: No scleral icterus. No injection or drainage. NECK: Supple, trachea midline. No JVD or lymphadenopathy. CARDIOVASCULAR: Regular rate and rhythm without murmurs, gallops, or rubs. RESPIRATORY: Breath sounds equal bilaterally. No accessory muscle use. GASTROINTESTINAL: Abdomen soft, non-tender, nondistended. MUSCULOSKELETAL: No cyanosis, or edema. Neuro: Intubated, sedated, arouses, RASS -2. follows commands. Assessment and Plan - Assessment and Plan Plan: Assessment: 78yM with c. diff colitis and seizures, now mental status improving and organ function improving. will work towards weaning to extubate. Neuro/Psych: Encephalopathy- multifactorial 2nd metabolic/toxic etiology Seizure -likely secondary to hypomagnesia History of cocaine, THC and alcohol abuse Neuro is following- Dr. Vasquez Goal of RASS [address] brain negative for acute findings x2. MRI brain : Moderate to severe chronic white matter ischemic changes. No recent infarct. 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 EEG 05/04: No acute abnormalities Vitamin bag daily times 3 days including thiamine, folate and multivitamin Monitor for DTs Urine drug screen + Cocaine Levetiracetam 500 mg twice daily CV: Sinus tachycardia Essential hypertension Mild elevated trop on Cardizem 60mg Q6 for BP control Monitor HR and BP keep MAP>65mmHg Echo showed EF 55-60% Lactic acid 1.1 add hydralazine 100mg po q8h prn labetalol Resp: Acute hypoxic and hypercarbic respiratory failure- improving. passed SBT- will wean to extubate. Ventilator bundle Albuterol/ipratropium aerosols every 4 hours with albuterol aerosols every 2 hours as needed for dyspnea CXR 05/04: Minimal bibasilar disease likely atelectasis GI: Gastroesophageal reflux disease Elevated ammonia Pantoprazole for GI prophylaxis change to jevity tube feeds. Docusate serum/senna 1 tablet twice daily for bowel regimen Lactulose 30 cc twice daily for elevated ammonia. Recheck in a.m. CT abdomen/pelvis: Thick walled urinary bladder with a Silva catheter. Similar findings were seen on the prior 2 studies. No obstruction or acute inflammatory changes are seen of the GI tract. Mildly distended stomach despite presence of nasogastric tube. ? wall thickening, especially greater curvature of the body. This is nonspecific. Chronic hiatal hernia. Cholelithiasis again demonstrated. No associated inflammatory changes are seen. No duct stone or ductal dilatation. : Hypokalemia History of BPH Monitor renal function, I/O's, electrolytes replacement per protocol. Will need K replacement today decrease d10w to 42cc/hr. Endo: Sliding scale insulin Accu-Cheks to maintain euglycemia/low regimen with aspart insulin On D10 @42ml/hr for hypoglycemia. 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 Follow trends. No indication for transfusion of blood products at this time. ID: UTI Positive C-diff Monitor for signs and symptomatology infection On Rocephin and PO Vanco, monitor for signs of infections ( Fever, WBC) Urine cx 05/03: Kleb pneumonia Influenza screening negative C-diff PCR positive ID is following MSK: PT evaluate and treat access - -Left subclavian CVL placed 05/03: obtain piv and d/c cvl. d/c silva. Prophylaxis -GI -pantoprazole -DVT -SCD/heparin subcu
[2018-05-08] MEDS ORDERED: hydrALAZINE 50 MG Tablet PO SCH (12:00)
--- NOTE | 2018-05-08 13:10 | P.PNID ---
Subjective Remarks: Patient is a 78-year-old male, presented to the emergency room complaining of 6- month history of worsening generalized weakness. There is been poor p.o. intake , and there is mention that he was almost homeless. He did not have any abdominal pain, diarrhea, nausea or vomiting patient has previous history of BPH , prostate cancer, status post TURP, and he does self-catheterization. In the ED he had CT of the brain which did not show any acute process. He had electrolyte imbalance. While in the ED he apparently had a witnessed seizure, and post ictal he was quite confused and required intubation. Patient has remained intubated since. He has not been febrile. His urinalysis showed some pyuria. Urine culture is growing Klebsiella. He also started having diarrhea, and stool for C. difficile came back positive. His white count is mildly elevated today to 12,000. Patient currently remains on the vent. He is awake and following commands. His hemodynamics are stable. He is afebrile. He has a rectal bag and has liquid stool. Infectious disease consultation has been requested to assist with evaluation and treatment of his UTI, and C. difficile colitis. Notes reviewed Temps ok On the vent - on CPAP BP ok WBC still 12K C diff (+) UC Klebsiella Antibiotics: Rocephin PO Vanco Past Medical History: Alcohol use Gastroesophageal reflux disease HTN (hypertension) Hypomagnesemia Osteoarthritis Tetrahydrocannabinol (THC) use disorder, mild, abuse Cocaine abuse in remission Prostate cancer TIA (transient ischemic attack) Urinary retention due to benign prostatic hyperplasia H/O cystoscopy History of ERCP History of esophagogastroduodenoscopy (EGD) S/P TURP Allergies/Adverse Reactions: Allergies No Known Allergies Allergy (Verified 05/03/18 09:59) Objective Vital Signs 05/07/18 14:00 05/07/18 15:00 05/07/18 15:05 Temperature Pulse Rate 93 H 100 H 97 H Respiratory Rate 16 19 14 Blood Pressure 171/91 H 191/100 H 174/95 H Pulse Oximetry 100 100 05/07/18 16:00 05/07/18 16:15 05/07/18 17:00 Temperature Pulse Rate 89 97 H 95 H Respiratory Rate 14 18 16 Blood Pressure 153/84 H 169/92 H Pulse Oximetry 100 100 100 05/07/18 18:00 05/07/18 18:10 05/07/18 18:20 Temperature 98.4 F Pulse Rate 100 H 93 H Respiratory Rate 13 20 Blood Pressure 194/123 H 181/100 H Pulse Oximetry 100 100 100 05/07/18 18:35 05/07/18 19:00 05/07/18 20:00 Temperature 98.5 F Pulse Rate 95 H 95 H 65 Respiratory Rate 22 18 15 Blood Pressure 182/97 H 171/94 H 96/54 L Pulse Oximetry 100 100 100 05/07/18 21:00 05/07/18 21:19 05/07/18 22:00 Temperature Pulse Rate 63 85 Respiratory Rate 15 15 14 Blood Pressure 103/59 L 165/85 H Pulse Oximetry 100 100 100 05/07/18 23:00 05/08/18 00:00 05/08/18 01:00 Temperature 98.6 F Pulse Rate 79 82 80 Respiratory Rate 15 15 16 Blood Pressure 150/77 H 155/83 H 166/84 H Pulse Oximetry 100 100 100 05/08/18 01:35 05/08/18 02:00 05/08/18 03:00 Temperature Pulse Rate 82 85 Respiratory Rate 17 15 18 Blood Pressure 169/88 H 174/95 H Pulse Oximetry 100 100 100 05/08/18 04:00 05/08/18 05:00 05/08/18 05:28 Temperature 98.7 F Pulse Rate 79 75 Respiratory Rate 13 15 19 Blood Pressure 185/92 H 176/91 H Pulse Oximetry 100 100 100 05/08/18 06:00 05/08/18 07:00 05/08/18 07:04 Temperature Pulse Rate 90 80 76 Respiratory Rate 17 17 17 Blood Pressure 191/127 H 192/98 H 192/95 H Pulse Oximetry 100 100 100 05/08/18 07:27 05/08/18 11:10 Temperature Pulse Rate Respiratory Rate 19 14 Blood Pressure Pulse Oximetry 100 100 Intake & Output 05/07/18 05/08/18 05/08/18 18:59 06:59 18:59 Intake Total 1305 / 1305 2045 / 2045 500 / 500 Output Total 1400 / 1400 1300 / 1300 Balance -95 / -95 745 / 745 500 / 500 Weight 63 kg Intake: IV 1305 / 1305 1305 / 1305 500 / 500 Diprivan 1000 mg/100 ml Inj 1, 200 / 200 100 / 100 000 mg In 100 ml @ 5 MCG/KG/MIN 1.701 mls/hr IV.CONT TITRATE PRN Rx#:[id number] D10W Inj 500 ML @ 84 mls/hr IV. 500 / 500 1000 / 1000 500 / 500 SIG .Q5H58M [facility] Rx#:[id number] Zosyn 4.5 GM Premix 4.5 gm In 100 / 100 100 ml @ 200 mls/hr IV.SIG Q6H [facility] Rx#:[id number] KCl 40 mEq Premix Inj 40 meq In 100 / 100 100 / 100 100 ml @ 25 mls/hr IV.SIG Q4H PRN Rx#:[id number] Rocephin Inj 2,000 MG In NS Inj 100 / 100 100 ML @ 200 mls/hr IV.SIG Q24H [facility] Rx#:[id number] Keppra Inj 500 MG In NS Inj 100 105 / 105 105 / 105 ML @ 400 mls/hr IV.SIG Q12H [facility] Rx#:[id number] Flagyl 500 MG Inj 100 ML @ 100 200 / 200 mls/hr IV.SIG Q8H [facility] Rx#: [id number] Tube Feeding 620 / 620 Water Bolus Amount 120 / 120 Output: Urine 1400 / 1400 1300 / 1300 Other: Date of Last Bowel Movement 05/07/18 05/08/18 05/08/18 # Incontinent Bowel Movements 3 1 05/03/18 17:35 Blood - Peripheral Aerobic Blood Culture - Final No growth in 5 days 05/03/18 17:35 Blood - Peripheral Anaerobic Blood Culture - Final No growth in 5 days 05/03/18 17:40 Blood - Peripheral Aerobic Blood Culture - Final No growth in 5 days 05/03/18 17:40 Blood - Peripheral Anaerobic Blood Culture - Final No growth in 5 days 05/06/18 11:20 Stool Clostridium difficile GDH Antigen - Final Positive - C. difficile Antigen detected. 05/06/18 11:20 Stool Clostridium difficile Toxin Assay - Final Negative - No C. difficile Toxin A or B detected. 05/03/18 12:45 Catheterized Urine Urine Culture - Final Klebsiella pneumoniae Lab - Hematology Results 05/07/18 05/08/18 05:00 04:10 WBC 12.9 H 12.6 H RBC 3.21 L 3.48 L Hgb 10.0 L 10.7 L Hct 30.1 L 32.4 L MCV 93.6 93.2 MCH 31.0 30.7 MCHC 33.1 32.9 RDW 14.2 14.4 Plt Count 186 206 MPV 8.1 8.2 Neut % (Auto) 94.3 H 93.8 H Lymph % (Auto) 2.5 L 3.7 L Archer % (Auto) 3.2 2.3 Eos % (Auto) 0.0 0.0 Baso % (Auto) 0.0 0.2 Neut # (Auto) 12.2 H 11.8 H Lymph # (Auto) 0.3 L 0.5 L Archer # (Auto) 0.4 0.3 Eos # (Auto) 0.0 0.0 Baso # (Auto) 0.0 0.0 WBC Differential . . Differential Comment Auto diff final Auto diff final Lab - Chemistry Results 05/06/18 05/06/18 05/06/18 11:33 14:06 15:55 Sodium Potassium Chloride Carbon Dioxide Anion Gap BUN Creatinine Estimated GFR POC Glucose 145 H 131 H Random Glucose Calcium Phosphorus Magnesium Total Bilirubin AST ALT Alkaline Phosphatase Total Protein Albumin Albumin (PEP) 3.33 L Albumin/Globulin Ratio 1.02 L Fzvhq-2-Fhuhbxuik 0.25 Rfcdk-3-Iywjtxxuq 0.75 Beta Globulins 0.84 Gamma Globulins 1.43 H 05/06/18 05/06/18 05/06/18 16:20 18:23 20:38 Sodium Potassium 3.3 L Chloride Carbon Dioxide Anion Gap BUN Creatinine Estimated GFR POC Glucose 116 H 77 Random Glucose Calcium Phosphorus 2.5 Magnesium Total Bilirubin AST ALT Alkaline Phosphatase Total Protein Albumin Albumin (PEP) Albumin/Globulin Ratio Nqenr-7-Fhkkzphqr Wiuuf-1-Lufyzmpsz Beta Globulins Gamma Globulins 05/06/18 05/07/18 05/07/18 21:53 01:02 02:43 Sodium Potassium Chloride Carbon Dioxide Anion Gap BUN Creatinine Estimated GFR POC Glucose 88 77 66 L Random Glucose Calcium Phosphorus Magnesium Total Bilirubin AST ALT Alkaline Phosphatase Total Protein Albumin Albumin (PEP) Albumin/Globulin Ratio Tutzp-0-Xgcartxap Daqcq-9-Eyanviqiv Beta Globulins Gamma Globulins 05/07/18 05/07/18 05/07/18 04:00 05:00 07:02 Sodium 146 H Potassium 3.2 L Chloride 111 H Carbon Dioxide 25.1 Anion Gap 10 BUN 7 Creatinine 1.30 Estimated GFR 65 L POC Glucose 109 112 H Random Glucose 153 H Calcium 7.9 L Phosphorus 2.6 Magnesium 1.7 Total Bilirubin 0.3 AST 22 ALT 17 Alkaline Phosphatase 70 Total Protein 6.2 L Albumin 2.3 L Albumin (PEP) Albumin/Globulin Ratio Toprs-8-Clsbievsr Ypjkm-4-Lalrmkfow Beta Globulins Gamma Globulins 05/07/18 05/07/18 05/07/18 09:01 10:53 11:56 Sodium Potassium Chloride Carbon Dioxide Anion Gap BUN Creatinine Estimated GFR POC Glucose 97 126 H 88 Random Glucose Calcium Phosphorus Magnesium Total Bilirubin AST ALT Alkaline Phosphatase Total Protein Albumin Albumin (PEP) Albumin/Globulin Ratio Qgsqc-7-Txxcseexw Jbrkv-3-Hlusapsda Beta Globulins Gamma Globulins 05/07/18 05/07/18 05/07/18 13:34 16:03 18:34 Sodium Potassium Chloride Carbon Dioxide Anion Gap BUN Creatinine Estimated GFR POC Glucose 71 120 H 110 Random Glucose Calcium Phosphorus Magnesium Total Bilirubin AST ALT Alkaline Phosphatase Total Protein Albumin Albumin (PEP) Albumin/Globulin Ratio Rwqfw-5-Bwafadinz Udbow-8-Vaitnnhkb Beta Globulins Gamma Globulins 05/07/18 05/07/18 05/08/18 20:04 22:38 00:12 Sodium Potassium Chloride Carbon Dioxide Anion Gap BUN Creatinine Estimated GFR POC Glucose 143 H 94 96 Random Glucose Calcium Phosphorus Magnesium Total Bilirubin AST ALT Alkaline Phosphatase Total Protein Albumin Albumin (PEP) Albumin/Globulin Ratio Rnymw-5-Wgsraiwsw Zwkuy-1-Dykjaqnlv Beta Globulins Gamma Globulins 05/08/18 05/08/18 05/08/18 02:02 03:54 04:10 Sodium 145 Potassium 3.7 Chloride 111 H Carbon Dioxide 26.9 Anion Gap 7 BUN 11 Creatinine 1.17 Estimated GFR 73 L POC Glucose 96 84 Random Glucose 114 H Calcium 8.4 L Phosphorus 2.4 L Magnesium 1.9 Total Bilirubin 0.3 AST 23 ALT 21 Alkaline Phosphatase 71 Total Protein 6.6 Albumin 2.5 L Albumin (PEP) Albumin/Globulin Ratio Qiccc-7-Mojkppukw Wqzqf-4-Rtsbgmvro Beta Globulins Gamma Globulins 05/08/18 05/08/18 05/08/18 06:37 07:36 10:02 Sodium Potassium Chloride Carbon Dioxide Anion Gap BUN Creatinine Estimated GFR POC Glucose 74 107 105 Random Glucose Calcium Phosphorus Magnesium Total Bilirubin AST ALT Alkaline Phosphatase Total Protein Albumin Albumin (PEP) Albumin/Globulin Ratio Zaaig-2-Hvpxjsuqi Eobcm-1-Toyyyjhjp Beta Globulins Gamma Globulins 05/08/18 12:18 Sodium Potassium Chloride Carbon Dioxide Anion Gap BUN Creatinine Estimated GFR POC Glucose 99 Random Glucose Calcium Phosphorus Magnesium Total Bilirubin AST ALT Alkaline Phosphatase Total Protein Albumin Albumin (PEP) Albumin/Globulin Ratio Cbylp-4-Fmfionxdx Cocne-3-Wgynhtiwj Beta Globulins Gamma Globulins Imaging: ITS Impressions Cervical Spine CT 05/03/18 12:37 CONCLUSION: 1. 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 2. No acute cervical spine fracture identified. Head CT 05/03/18 12:37 CONCLUSION: 1. Microvascular ischemic demyelinative change. No acute intracranial abnormality identified. . Abdomen/Pelvis CT 05/04/18 00:00 CONCLUSION: 1. Thick walled urinary bladder with a Buchanan catheter. Similar findings were seen on the prior 2 studies. 2. No obstruction or acute inflammatory changes are seen of the gastrointestinal tract. 3. Mildly distended stomach despite presence of nasogastric tube. There is questionable wall thickening, especially greater curvature of the body. This is nonspecific. Chronic hiatal hernia. 4. Cholelithiasis again demonstrated. No associated inflammatory changes are seen. No duct stone or ductal dilatation. 5. Small effusions of the visualized lung bases and mild body wall edema/ anasarca. 6. Mild bibasilar atelectasis. Head MRI 05/04/18 00:00 CONCLUSION: 1. Moderate to severe chronic white matter ischemic changes. No recent infarct. 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 2. Sinus mucosal thickening. Chest X-Ray 05/07/18 07:16 CONCLUSION: Support apparatus in good position. Minimal bibasilar parenchymal changes. Physical Exam: GENERAL: awake on the vent, following some commands, not in respiratory distress. SKIN: Cool and dry. No generalized rash, no ecchymoses and no evidence of embolic lesions. HEAD: Atraumatic. Normocephalic. No temporal wasting, or tenderness. EYES: [place] conjunctiva. No petechia or hemorrhage. Pupils equal, round and reactive to light. No scleral icterus. No injection or drainage. EARS, NOSE AND THROAT: Nose without bleeding or purulent nasal discharge. No sinus tenderness. Mucous membranes pink and moist. Poor dentition. Endotracheal tube is in the mouth. NECK: Trachea midline. Supple and not tender, no meningeal signs CARDIOVASCULAR: Regular rate and rhythm. No murmurs, rubs or gallops heard RESPIRATORY: Coarse breath sounds bilaterally, decreased at the bases. ABDOMEN: Soft, flat, non-tender, nondistended. Bowel sounds present and normoactive. No guarding. No rebound. No organomegaly. EXTREMITIES: No clubbing, cyanosis, or edema. No joint effusion, has good ROM. No calf tenderness. NEUROLOGICAL: Awake and following some commands. PSYCHIATRIC: Unable to assess. : Buchanan catheter in place, urine looks clear LINE: No evidence of infection Assessment and Plan - Plan Impression Klebsiella UTI, does self catheterization C difficile colitis Respiratory failure Seizure Drug screen (+) cocaine Recommendation Give 7 days Abx for UTI - will narrow down coverage and give Rocephin PO vanco for C diff and give 14 days Monitor progress Follow CBC Vent management per CCM
[2018-05-08] MEDS ORDERED: *Labetalol HCl Inj 100 MG/20 ML Vial PERIprocedural Use ONLY IV.PUSH PRN (14:05)
[2018-05-08] MEDS ORDERED: Labetalol HCl Inj 100 MG/20 ML Vial IV.PUSH ONE (14:05)
[2018-05-08 14:47] LABS: ABG Base Excess 1.9 mmol/L (-2-2); ABG PCO2 31 mmHg (38-42); ABG PO2 151 mmHG (61-120)
[2018-05-08] MEDS: Labetalol HCl Inj 100 MG/20 ML Vial IV.PUSH PRN ×2 (18:00→19:05)
[2018-05-09] MEDS: Hydrocortisone Sod Succinate 100 MG Vial IV.PUSH SCH ×4 (01:02→18:18)
[2018-05-09] MEDS: Insulin NovoLOG Aspart Correctional Sugar Inj SQ SCH ×9 (01:08→20:11)
[2018-05-09] MEDS: Oral Hygiene Kit OROPHARYNG SCH ×5 (01:08→23:16)
[2018-05-09 07:32] LABS: Baso # (Auto) 0.1 th/mm3 (0.0-0.2); Baso % (Auto) 0.5 % (0.0-2.0); Hematocrit 31.7 % (39.0-51.0); Hemoglobin 10.5 gm/dL (13.0-17.0); Lymph # (Auto) 0.8 th/mm3 (1.0-4.8); Lymph % (Auto) 7.7 % (9.0-44.0); Mean Corpuscular HGB Conc 33.1 % (32.0-36.0); Mean Corpuscular Hemoglobin 30.8 pg (27.0-34.0); Mean Corpuscular Volume 93.1 fL (80.0-100.0); Mean Platelet Volume 8.6 fL (7.0-11.0); Mono # (Auto) 0.5 th/mm3 (0.0-0.9); Mono % (Auto) 4.3 % (0.0-8.0); Neut # (Auto) 9.4 th/mm3 (1.8-7.7); Neut % (Auto) 87.5 % (16.0-70.0); Platelet Count 199 th/mm3 (150-450); White Blood Count 10.7 th/mm3 (4.0-11.0)
[2018-05-09 07:59] LABS: Alanine Aminotransferase 20 U/L (12-78); Albumin 2.4 g/dL (3.4-5.0); Alkaline Phosphatase 66 U/L (45-117); Anion Gap 10 meq/L (5-15); Aspartate Aminotransferase 25 U/L (15-37); Blood Urea Nitrogen 19 mg/dL (7-18); Calcium 7.6 mg/dL (8.5-10.1); Carbon Dioxide 28.5 meq/L (21.0-32.0); Chloride 106 meq/L (98-107); Glomerular Filtration Rate 73 mL/min (>89); Glucose,Random 93 mg/dL (74-106); Magnesium 1.6 mg/dL (1.5-2.5); Phosphorus 3.2 mg/dL (2.5-4.9); Potassium 3.4 meq/L (3.5-5.1); Sodium 144 meq/L (136-145); Total Protein 6.3 g/dL (6.4-8.2)
[2018-05-09 08:41] LABS: Lymphocytes 8 % (9-44); Monocytes 3 % (0-8); Myelocytes 1 % (0-0); Platelet Estimate Normal (Normal); Platelet Morphology Normal (Normal)
[2018-05-09 08:42] LABS: Acanthocytes Occ
[2018-05-09] MEDS: Carboxymethylcellulose 0.5% Opth Drops 15 ML Bottle EACH EYE SCH ×2 (08:58→20:11)
[2018-05-09] MEDS: Heparin - SQ 10,000 UNITS/ML Vial SQ SCH ×2 (08:58→20:10)
[2018-05-09] MEDS: Chlorhexidine 0.12% Oral Kit 15 ML UDC OROPHARYNG SCH ×2 (08:59→20:11)
[2018-05-09] MEDS: dilTIAZem 60 MG Tablet PO SCH ×4 (08:59→20:10)
[2018-05-09] MEDS: Pantoprazole Inj 40 MG Vial IV.PUSH SCH (09:00)
[2018-05-09] MEDS: Senna/Docusate Sodium 8.6/50 MG Tablet PO SCH ×2 (09:00→20:11)
--- NOTE | 2018-05-09 09:53 | P.PNIM ---
Subjective Interval history: This is a 78-year-old -[place] male. Date of admission 05/03/2018. Past medical history includes history of cocaine, THC, alcohol abuse, history of TIA, gastroparesis, hypertension, BPH, prostate cancer status post TURP. Patient self caths. History of hypomagnesia. [id number] with history of hypertension presents to the emergency department for evaluation of weakness for 6 months. He says that he was in this emergency department approximately 6 months ago and since then, he has felt weak. He says that he has had poor oral intake and is 'almost homeless'. Reported no abdominal symptoms including diarrhea, nausea or vomiting per Patient had a essentially negative CT of the brain. When laboratories returned , was noted to have a magnesium 0.4. Potassium 3.1. Calcium 7.4. Elevated ammonia level. Patient received potassium. When the patient about received magnesium, patient had a witnessed seizure. Fell in the form struck it. Became more acutely confused required intubation. Repeat brain CT revealed no acute findings. EKG revealed no prolonged QTc interval. Currently receiving 4 g mag sulfate IV x1 now. 05/04 Patient is sedated with Diprivan and intubated. Afebrile. Hypoglycemic overnight with BC 49 given 1 amp D50, afebrile. 05/05 Patient remains intubated and sedated with Diprivan, afebrile. MRI brain last night showed no acute findings. Hypoglycemic overnight given 1 amp D50 x2. 05/06 Patient remains intubated on low dose sedation ( Diprivan 10 mics). Afebrile. 05/07 Patient is sedated with Diprivan and intubated. Afebrile. 05/08: more awake. no seizures. follows commands. tolerating SBT. 10-3 TRANSFERRED TO OUR SERVICE TODAY HAD C.DIFFICILE TOXIN COLITIS ON ORAL VANCO PASSED SWALLOW EVAL DW RN AND PT AND CM Physical Exam Vital signs: Vital Signs 05/08/18 10:00 05/08/18 11:00 05/08/18 11:01 Temperature Pulse Rate 85 95 H 94 H Respiratory Rate 16 18 16 Blood Pressure 174/93 H 197/106 H Pulse Oximetry 100 100 100 05/08/18 11:02 05/08/18 11:10 05/08/18 12:00 Temperature 98.5 F Pulse Rate 87 86 Respiratory Rate 16 14 14 Blood Pressure 176/93 H 187/99 H Pulse Oximetry 100 100 100 05/08/18 13:00 05/08/18 13:08 05/08/18 13:17 Temperature Pulse Rate 96 H 93 H 105 H Respiratory Rate 16 15 18 Blood Pressure 197/96 H 191/99 H 198/135 H Pulse Oximetry 100 100 99 05/08/18 13:18 05/08/18 13:47 05/08/18 14:00 Temperature Pulse Rate 104 H 99 H 98 H Respiratory Rate 19 21 17 Blood Pressure 204/108 H 191/95 H 189/91 H Pulse Oximetry 100 100 100 05/08/18 14:32 05/08/18 15:00 05/08/18 15:18 Temperature Pulse Rate 81 80 Respiratory Rate 14 16 Blood Pressure 152/80 H 159/110 H Pulse Oximetry 100 100 99 05/08/18 15:30 05/08/18 16:00 05/08/18 16:30 Temperature 98.0 F Pulse Rate 78 80 79 Respiratory Rate 16 17 16 Blood Pressure 159/81 H 146/77 H 165/84 H Pulse Oximetry 99 99 100 05/08/18 17:00 05/08/18 17:30 05/08/18 18:00 Temperature Pulse Rate 81 83 92 H Respiratory Rate 14 17 17 Blood Pressure 158/91 H 171/93 H 186/133 H Pulse Oximetry 99 99 93 L 05/08/18 18:30 05/08/18 18:37 05/08/18 19:00 Temperature Pulse Rate 83 83 85 Respiratory Rate 12 16 17 Blood Pressure 183/106 H 197/109 H 214/105 H Pulse Oximetry 99 99 98 05/08/18 19:11 05/08/18 19:31 05/08/18 20:00 Temperature 98.6 F Pulse Rate 78 85 79 Respiratory Rate 15 19 16 Blood Pressure 173/88 H 150/82 H 166/87 H Pulse Oximetry 99 95 99 05/08/18 20:30 05/08/18 21:00 05/08/18 21:30 Temperature Pulse Rate 81 82 89 Respiratory Rate 16 16 20 Blood Pressure 165/95 H 175/99 H 166/86 H Pulse Oximetry 97 97 99 05/08/18 22:00 05/08/18 22:12 05/08/18 22:30 Temperature Pulse Rate 96 H 84 Respiratory Rate 25 H 15 Blood Pressure 178/91 H 161/84 H Pulse Oximetry 96 98 97 05/08/18 23:00 05/08/18 23:31 05/08/18 23:40 Temperature Pulse Rate 81 87 87 Respiratory Rate 14 25 H 15 Blood Pressure 158/84 H 147/114 H 165/96 H Pulse Oximetry 99 99 98 05/09/18 00:00 05/09/18 00:02 05/09/18 00:30 Temperature 98.6 F Pulse Rate 89 85 81 Respiratory Rate 16 16 15 Blood Pressure 146/82 H 154/83 H Pulse Oximetry 97 99 99 05/09/18 01:00 05/09/18 01:30 05/09/18 02:00 Temperature Pulse Rate 86 94 H 93 H Respiratory Rate 18 14 18 Blood Pressure 167/85 H 170/81 H 179/87 H Pulse Oximetry 98 98 95 05/09/18 02:30 05/09/18 03:00 05/09/18 03:30 Temperature Pulse Rate 90 91 H 80 Respiratory Rate 17 17 15 Blood Pressure 162/91 H 148/87 H 165/88 H Pulse Oximetry 94 L 96 98 05/09/18 04:00 05/09/18 04:11 05/09/18 04:31 Temperature 98.5 F Pulse Rate 84 88 92 H Respiratory Rate 15 14 18 Blood Pressure 154/102 H 160/98 H 162/134 H Pulse Oximetry 98 97 99 05/09/18 04:32 05/09/18 04:33 05/09/18 05:00 Temperature Pulse Rate 90 88 81 Respiratory Rate 18 18 14 Blood Pressure 161/127 H 167/87 H Pulse Oximetry 97 97 100 05/09/18 05:01 05/09/18 05:31 05/09/18 06:00 Temperature Pulse Rate 82 90 77 Respiratory Rate 16 14 17 Blood Pressure 143/65 H 171/94 H 170/113 H Pulse Oximetry 100 98 99 Intake & Output 05/08/18 05/09/18 05/09/18 18:59 06:59 18:59 Intake Total 1197 / 1197 605 / 605 Output Total 950 / 950 800 / 800 Balance 247 / 247 -195 / -195 205 / Weight 60.5 kg Intake: IV 705 / 705 605 / 605 205 / 205 Diprivan 1000 mg/100 ml Inj 1, 100 / 100 000 mg In 100 ml @ 5 MCG/KG/MIN 1.701 mls/hr IV.CONT TITRATE PRN Rx#:[id number] D10W Inj 500 ML @ 42 mls/hr IV. 500 / 500 500 / 500 SIG .[id number] [facility] Rx#:[id number] Rocephin Inj 2,000 MG In NS Inj 100 / 100 100 ML @ 200 mls/hr IV.SIG Q24H [facility] Rx#:[id number] Keppra Inj 500 MG In NS Inj 100 105 / 105 105 / 105 105 / 105 ML @ 400 mls/hr IV.SIG Q12H [facility] Rx#:[id number] Tube Feeding 412 / 412 Water Bolus Amount 80 / 80 Output: Urine Amount (Catheter) 950 / 950 800 / 800 Indwelling Urethral Catheter 950 / 950 Straight 800 / 800 Other: Date of Last Bowel Movement 05/08/18 05/09/18 # Incontinent Bowel Movements 3 Narrative: Physical Examination GENERAL: Patient is a thin, well-developed male, AWAKE AND ALERT, following some commands, not in respiratory distress. SKIN: Cool and dry. No generalized rash, no ecchymoses and no evidence of embolic lesions. HEAD: Atraumatic. Normocephalic. No temporal wasting, or tenderness. EYES: Ursina conjunctiva. No petechia or hemorrhage. Pupils equal, round and reactive to light. No scleral icterus. No injection or drainage. EARS, NOSE AND THROAT: Nose without bleeding or purulent nasal discharge. No sinus tenderness. Mucous membranes pink and moist. Poor dentition. NECK: Trachea midline. Supple and not tender, no meningeal signs CARDIOVASCULAR: Regular rate and rhythm. No murmurs, rubs or gallops heard S1, S2 NO S3 OR S4 RESPIRATORY: Coarse breath sounds bilaterally, decreased at the bases. ABDOMEN: Soft, flat, non-tender, nondistended. Bowel sounds present and normoactive. No guarding. No rebound. No organomegaly. EXTREMITIES: No clubbing, cyanosis, or edema. No joint effusion, has good ROM. No calf tenderness. NEUROLOGICAL: Awake and following some commands. PSYCHIATRIC: Insight and judgment is limited. Mood and behavior somewhat appropriate : Buchanan catheter in place, urine looks clear LINE: No evidence of infection - Urinary Catheter Management Straight Cath placed during this visit: yes, but has since been removed by the nurse Reason for continuing: Hourly intake/output Insertion date: 05/03/18 Insertion time: 18:24 Removal date: 05/03/18 Removal time: 15:14 Indwelling Urethral Catheter Cath placed during this visit: no Results - Labs CBC & Chem 7: 05/09/18 06:07 05/09/18 06:07 Laboratory Results - last 24 hr 05/03/18 05/08/18 05/08/18 12:45 10:02 12:18 WBC RBC Hgb Hct MCV MCH MCHC RDW Plt Count MPV Prelim Diff (Auto) Neut % (Auto) Lymph % (Auto) Lea % (Auto) Eos % (Auto) Baso % (Auto) Neut # (Auto) Lymph # (Auto) Lea # (Auto) Eos # (Auto) Baso # (Auto) WBC Differential Seg Neuts % (Manual) Band Neuts % (Manual) Lymphocytes % (Manual) Monocytes % (Manual) Myelocytes % (Man) Abs Neuts (Manual) Differential Comment Platelet Estimate Platelet Morphology Acanthocytes (Spur) Puncture Site Patient Temperature O2 Saturation ABG pH ABG pCO2 ABG pO2 ABG HCO3 ABG O2 Content ABG Base Excess ABG Methemoglobin Eduardo Test Hemoglobin Carboxyhemoglobin O2 Delivery Device Vent Setting Inspired O2 Critical Value Sodium Potassium Chloride Carbon Dioxide Anion Gap BUN Creatinine Estimated GFR POC Glucose 105 99 Random Glucose Calcium Phosphorus Magnesium Total Bilirubin AST ALT Alkaline Phosphatase Total Protein Albumin Urine Opiates Screen Neg Ur Barbiturates Screen Neg Ur Amphetamines Screen Neg U Benzodiazepines Scrn Neg Urine Cocaine Screen Pos H U Cannabinoids Screen Neg 05/08/18 05/08/18 05/08/18 14:18 14:28 15:15 WBC RBC Hgb Hct MCV MCH MCHC RDW Plt Count MPV Prelim Diff (Auto) Neut % (Auto) Lymph % (Auto) Lea % (Auto) Eos % (Auto) Baso % (Auto) Neut # (Auto) Lymph # (Auto) Lea # (Auto) Eos # (Auto) Baso # (Auto) WBC Differential Seg Neuts % (Manual) Band Neuts % (Manual) Lymphocytes % (Manual) Monocytes % (Manual) Myelocytes % (Man) Abs Neuts (Manual) Differential Comment Platelet Estimate Platelet Morphology Acanthocytes (Spur) Puncture Site Right radial Patient Temperature 98.6 O2 Saturation 97 ABG pH 7.51 H* ABG pCO2 31 L ABG pO2 151 H ABG HCO3 25 ABG O2 Content 14.8 ABG Base Excess 1.9 ABG Methemoglobin 1.6 Eduardo Test Present Hemoglobin 10.7 L Carboxyhemoglobin 0.8 O2 Delivery Device Ventilator Vent Setting [id number] Inspired O2 40 Critical Value Yes Sodium Potassium Chloride Carbon Dioxide Anion Gap BUN Creatinine Estimated GFR POC Glucose 130 H 131 H Random Glucose Calcium Phosphorus Magnesium Total Bilirubin AST ALT Alkaline Phosphatase Total Protein Albumin Urine Opiates Screen Ur Barbiturates Screen Ur Amphetamines Screen U Benzodiazepines Scrn Urine Cocaine Screen U Cannabinoids Screen 05/08/18 05/08/18 05/08/18 16:59 18:20 20:08 WBC RBC Hgb Hct MCV MCH MCHC RDW Plt Count MPV Prelim Diff (Auto) Neut % (Auto) Lymph % (Auto) Lea % (Auto) Eos % (Auto) Baso % (Auto) Neut # (Auto) Lymph # (Auto) Lea # (Auto) Eos # (Auto) Baso # (Auto) WBC Differential Seg Neuts % (Manual) Band Neuts % (Manual) Lymphocytes % (Manual) Monocytes % (Manual) Myelocytes % (Man) Abs Neuts (Manual) Differential Comment Platelet Estimate Platelet Morphology Acanthocytes (Spur) Puncture Site Patient Temperature O2 Saturation ABG pH ABG pCO2 ABG pO2 ABG HCO3 ABG O2 Content ABG Base Excess ABG Methemoglobin Eduardo Test Hemoglobin Carboxyhemoglobin O2 Delivery Device Vent Setting Inspired O2 Critical Value Sodium Potassium Chloride Carbon Dioxide Anion Gap BUN Creatinine Estimated GFR POC Glucose 148 H 116 H 95 Random Glucose Calcium Phosphorus Magnesium Total Bilirubin AST ALT Alkaline Phosphatase Total Protein Albumin Urine Opiates Screen Ur Barbiturates Screen Ur Amphetamines Screen U Benzodiazepines Scrn Urine Cocaine Screen U Cannabinoids Screen 05/08/18 05/08/18 05/09/18 22:09 23:34 02:02 WBC RBC Hgb Hct MCV MCH MCHC RDW Plt Count MPV Prelim Diff (Auto) Neut % (Auto) Lymph % (Auto) Lea % (Auto) Eos % (Auto) Baso % (Auto) Neut # (Auto) Lymph # (Auto) Lea # (Auto) Eos # (Auto) Baso # (Auto) WBC Differential Seg Neuts % (Manual) Band Neuts % (Manual) Lymphocytes % (Manual) Monocytes % (Manual) Myelocytes % (Man) Abs Neuts (Manual) Differential Comment Platelet Estimate Platelet Morphology Acanthocytes (Spur) Puncture Site Patient Temperature O2 Saturation ABG pH ABG pCO2 ABG pO2 ABG HCO3 ABG O2 Content ABG Base Excess ABG Methemoglobin Eduardo Test Hemoglobin Carboxyhemoglobin O2 Delivery Device Vent Setting Inspired O2 Critical Value Sodium Potassium Chloride Carbon Dioxide Anion Gap BUN Creatinine Estimated GFR POC Glucose 105 111 H 96 Random Glucose Calcium Phosphorus Magnesium Total Bilirubin AST ALT Alkaline Phosphatase Total Protein Albumin Urine Opiates Screen Ur Barbiturates Screen Ur Amphetamines Screen U Benzodiazepines Scrn Urine Cocaine Screen U Cannabinoids Screen 05/09/18 05/09/18 05/09/18 04:25 06:07 06:07 WBC 10.7 RBC 3.40 L Hgb 10.5 L Hct 31.7 L MCV 93.1 MCH 30.8 MCHC 33.1 RDW 14.0 Plt Count 199 MPV 8.6 Prelim Diff (Auto) Slide review pending Neut % (Auto) 87.5 H Lymph % (Auto) 7.7 L Lea % (Auto) 4.3 Eos % (Auto) 0.0 Baso % (Auto) 0.5 Neut # (Auto) 9.4 H Lymph # (Auto) 0.8 L Lea # (Auto) 0.5 Eos # (Auto) 0.0 Baso # (Auto) 0.1 WBC Differential Manual diff final Seg Neuts % (Manual) 87 H Band Neuts % (Manual) 1 Lymphocytes % (Manual) 8 L Monocytes % (Manual) 3 Myelocytes % (Man) 1 H Abs Neuts (Manual) 9.5 H Differential Comment . Platelet Estimate Normal Platelet Morphology Normal Acanthocytes (Spur) Occ H Puncture Site Patient Temperature O2 Saturation ABG pH ABG pCO2 ABG pO2 ABG HCO3 ABG O2 Content ABG Base Excess ABG Methemoglobin Eduardo Test Hemoglobin Carboxyhemoglobin O2 Delivery Device Vent Setting Inspired O2 Critical Value Sodium 144 Potassium 3.4 L Chloride 106 Carbon Dioxide 28.5 Anion Gap 10 BUN 19 H Creatinine 1.18 Estimated GFR 73 L POC Glucose 99 Random Glucose 93 Calcium 7.6 L D Phosphorus 3.2 Magnesium 1.6 Total Bilirubin 0.4 AST 25 ALT 20 Alkaline Phosphatase 66 Total Protein 6.3 L Albumin 2.4 L Urine Opiates Screen Ur Barbiturates Screen Ur Amphetamines Screen U Benzodiazepines Scrn Urine Cocaine Screen U Cannabinoids Screen 05/09/18 05/09/18 06:15 08:17 WBC RBC Hgb Hct MCV MCH MCHC RDW Plt Count MPV Prelim Diff (Auto) Neut % (Auto) Lymph % (Auto) Lea % (Auto) Eos % (Auto) Baso % (Auto) Neut # (Auto) Lymph # (Auto) Lea # (Auto) Eos # (Auto) Baso # (Auto) WBC Differential Seg Neuts % (Manual) Band Neuts % (Manual) Lymphocytes % (Manual) Monocytes % (Manual) Myelocytes % (Man) Abs Neuts (Manual) Differential Comment Platelet Estimate Platelet Morphology Acanthocytes (Spur) Puncture Site Patient Temperature O2 Saturation ABG pH ABG pCO2 ABG pO2 ABG HCO3 ABG O2 Content ABG Base Excess ABG Methemoglobin Eduardo Test Hemoglobin Carboxyhemoglobin O2 Delivery Device Vent Setting Inspired O2 Critical Value Sodium Potassium Chloride Carbon Dioxide Anion Gap BUN Creatinine Estimated GFR POC Glucose 100 98 Random Glucose Calcium Phosphorus Magnesium Total Bilirubin AST ALT Alkaline Phosphatase Total Protein Albumin Urine Opiates Screen Ur Barbiturates Screen Ur Amphetamines Screen U Benzodiazepines Scrn Urine Cocaine Screen U Cannabinoids Screen Microbiology 05/03/18 17:35 Blood - Peripheral Aerobic Blood Culture - Final No growth in 5 days 05/03/18 17:35 Blood - Peripheral Anaerobic Blood Culture - Final No growth in 5 days 05/03/18 17:40 Blood - Peripheral Aerobic Blood Culture - Final No growth in 5 days 05/03/18 17:40 Blood - Peripheral Anaerobic Blood Culture - Final No growth in 5 days - Imaging ITS Impressions Cervical Spine CT 05/03/18 12:37 CONCLUSION: 1. 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 2. No acute cervical spine fracture identified. Head CT 05/03/18 12:37 CONCLUSION: 1. Microvascular ischemic demyelinative change. No acute intracranial abnormality identified. . Abdomen/Pelvis CT 05/04/18 00:00 CONCLUSION: 1. Thick walled urinary bladder with a Buchanan catheter. Similar findings were seen on the prior 2 studies. 2. No obstruction or acute inflammatory changes are seen of the gastrointestinal tract. 3. Mildly distended stomach despite presence of nasogastric tube. There is questionable wall thickening, especially greater curvature of the body. This is nonspecific. Chronic hiatal hernia. 4. Cholelithiasis again demonstrated. No associated inflammatory changes are seen. No duct stone or ductal dilatation. 5. Small effusions of the visualized lung bases and mild body wall edema/ anasarca. 6. Mild bibasilar atelectasis. Head MRI 05/04/18 00:00 CONCLUSION: 1. Moderate to severe chronic white matter ischemic changes. No recent infarct. 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 2. Sinus mucosal thickening. Chest X-Ray 05/07/18 07:16 CONCLUSION: Support apparatus in good position. Minimal bibasilar parenchymal changes. - Procedures VDRF VENT MANAGEMENT INTUBATION EXTUBATION Assessment and Plan - Plan Patient is a 78-year-old male with a C. difficile toxin colitis and seizures has been extubated. And has now been transferred to our service. Encephalopathy toxic encephalopathy due to medications Seizures possibly secondary to hypo-magnesium plus electrolyte imbalance and/or alcohol abuse History of cocaine, THC and alcohol abuse -Continue on Keppra 500 twice daily -MRI of the brain showed moderate to severe chronic white matter ischemic changes no recent infarct probable remote small infarct right frontal lobe Sinus tachycardia improved Hypertension Elevated troponin -Remains on hydralazine and Cardizem and as needed labetalol Status post vent dependent respiratory failure has been extubated Had acute hypoxic and hypercarbic respiratory failure which is resolved Continue incentive spirometry GERD and elevated ammonia level Continue on lactulose Having positive C. difficile toxin colitis also continue on oral vancomycin 250 mg p.o. 4 times daily Hypokalemia will replace as needed History of BPH Prostate cancer poorly differentiated adenocarcinoma 2005 status post TURP UTI positive Klebsiella pneumoniae urinary tract infection-per infectious C. difficile toxin colitis continue on oral vancomycin 4 times a day 250 mg PT and OT Passed am labs speech therapy evaluation pured diet due to poor mentation Code Status: FULL CODE Discussed Condition With: RN AND PATIENT Discharge Planning: PENDING IMPROVEMENT
[2018-05-09] MEDS ORDERED: Potassium Chloride 25 MEQ Effervescent Tablet PO ONE (09:55)
[2018-05-09] MEDS ORDERED: Magnesium Sulfate Inj 4 GM in Sodium Chlor 0.9% Inj 92 ML IV.SIG ONE (11:00)
--- NOTE | 2018-05-09 15:21 | P.PNID ---
Subjective Remarks: Patient is a 78-year-old male, presented to the emergency room complaining of 6- month history of worsening generalized weakness. There is been poor p.o. intake , and there is mention that he was almost homeless. He did not have any abdominal pain, diarrhea, nausea or vomiting patient has previous history of BPH , prostate cancer, status post TURP, and he does self-catheterization. In the ED he had CT of the brain which did not show any acute process. He had electrolyte imbalance. While in the ED he apparently had a witnessed seizure, and post ictal he was quite confused and required intubation. Patient has remained intubated since. He has not been febrile. His urinalysis showed some pyuria. Urine culture is growing Klebsiella. He also started having diarrhea, and stool for C. difficile came back positive. His white count is mildly elevated today to 12,000. Patient currently remains on the vent. He is awake and following commands. His hemodynamics are stable. He is afebrile. He has a rectal bag and has liquid stool. Infectious disease consultation has been requested to assist with evaluation and treatment of his UTI, and C. difficile colitis. Notes reviewed Temps ok Has been extubated yesterday Doing well BP ok WBC better C diff (+) UC Klebsiella Antibiotics: Rocephin PO Vanco Past Medical History: Alcohol use Gastroesophageal reflux disease HTN (hypertension) Hypomagnesemia Osteoarthritis Tetrahydrocannabinol (THC) use disorder, mild, abuse Cocaine abuse in remission Prostate cancer TIA (transient ischemic attack) Urinary retention due to benign prostatic hyperplasia H/O cystoscopy History of ERCP History of esophagogastroduodenoscopy (EGD) S/P TURP Allergies/Adverse Reactions: Allergies No Known Allergies Allergy (Verified 05/03/18 09:59) Objective Vital Signs 05/08/18 15:30 05/08/18 16:00 05/08/18 16:30 Temperature 98.0 F Pulse Rate 78 80 79 Respiratory Rate 16 17 16 Blood Pressure 159/81 H 146/77 H 165/84 H Pulse Oximetry 99 99 100 05/08/18 17:00 05/08/18 17:30 05/08/18 18:00 Temperature Pulse Rate 81 83 92 H Respiratory Rate 14 17 17 Blood Pressure 158/91 H 171/93 H 186/133 H Pulse Oximetry 99 99 93 L 10/02/18 18:30 05/08/18 18:37 05/08/18 19:00 Temperature Pulse Rate 83 83 85 Respiratory Rate 12 16 17 Blood Pressure 183/106 H 197/109 H 214/105 H Pulse Oximetry 99 99 98 05/08/18 19:11 05/08/18 19:31 05/08/18 20:00 Temperature 98.6 F Pulse Rate 78 85 79 Respiratory Rate 15 19 16 Blood Pressure 173/88 H 150/82 H 166/87 H Pulse Oximetry 99 95 99 05/08/18 20:30 05/08/18 21:00 05/08/18 21:30 Temperature Pulse Rate 81 82 89 Respiratory Rate 16 16 20 Blood Pressure 165/95 H 175/99 H 166/86 H Pulse Oximetry 97 97 99 05/08/18 22:00 05/08/18 22:12 05/08/18 22:30 Temperature Pulse Rate 96 H 84 Respiratory Rate 25 H 15 Blood Pressure 178/91 H 161/84 H Pulse Oximetry 96 98 97 05/08/18 23:00 05/08/18 23:31 05/08/18 23:40 Temperature Pulse Rate 81 87 87 Respiratory Rate 14 25 H 15 Blood Pressure 158/84 H 147/114 H 165/96 H Pulse Oximetry 99 99 98 05/09/18 00:00 05/09/18 00:02 05/09/18 00:30 Temperature 98.6 F Pulse Rate 89 85 81 Respiratory Rate 16 16 15 Blood Pressure 146/82 H 154/83 H Pulse Oximetry 97 99 99 05/09/18 01:00 05/09/18 01:30 05/09/18 02:00 Temperature Pulse Rate 86 94 H 93 H Respiratory Rate 18 14 18 Blood Pressure 167/85 H 170/81 H 179/87 H Pulse Oximetry 98 98 95 05/09/18 02:30 05/09/18 03:00 05/09/18 03:30 Temperature Pulse Rate 90 91 H 80 Respiratory Rate 17 17 15 Blood Pressure 162/91 H 148/87 H 165/88 H Pulse Oximetry 94 L 96 98 05/09/18 04:00 05/09/18 04:11 05/09/18 04:31 Temperature 98.5 F Pulse Rate 84 88 92 H Respiratory Rate 15 14 18 Blood Pressure 154/102 H 160/98 H 162/134 H Pulse Oximetry 98 97 99 05/09/18 04:32 10/03/18 04:33 05/09/18 05:00 Temperature Pulse Rate 90 88 81 Respiratory Rate 18 18 14 Blood Pressure 161/127 H 167/87 H Pulse Oximetry 97 97 100 05/09/18 05:01 05/09/18 05:31 05/09/18 06:00 Temperature Pulse Rate 82 90 77 Respiratory Rate 16 14 17 Blood Pressure 143/65 H 171/94 H 170/113 H Pulse Oximetry 100 98 99 Intake & Output 05/08/18 05/09/18 05/09/18 18:59 06:59 18:59 Intake Total 1197 / 1197 605 / 605 305 / 305 Output Total 950 / 950 800 / 800 Balance 247 / 247 -195 / -195 305 / 305 Weight 60.5 kg Intake: IV 705 / 705 605 / 605 305 / 305 Diprivan 1000 mg/100 ml Inj 1, 100 / 100 000 mg In 100 ml @ 5 MCG/KG/MIN 1.701 mls/hr IV.CONT TITRATE PRN Rx#:[id number] D10W Inj 500 ML @ 42 mls/hr IV. 500 / 500 500 / 500 SIG .[id number] [facility] Rx#:[id number] Rocephin Inj 2,000 MG In NS Inj 200 / 200 100 ML @ 200 mls/hr IV.SIG Q24H [facility] Rx#:[id number] Keppra Inj 500 MG In NS Inj 100 105 / 105 105 / 105 105 / 105 ML @ 400 mls/hr IV.SIG Q12H [facility] Rx#:[id number] Tube Feeding 412 / 412 Water Bolus Amount 80 / 80 Output: Urine Amount (Catheter) 950 / 950 800 / 800 Indwelling Urethral Catheter 950 / 950 Straight 800 / 800 Other: Date of Last Bowel Movement 05/08/18 05/09/18 # Incontinent Bowel Movements 3 05/03/18 17:35 Blood - Peripheral Aerobic Blood Culture - Final No growth in 5 days 05/03/18 17:35 Blood - Peripheral Anaerobic Blood Culture - Final No growth in 5 days 05/03/18 17:40 Blood - Peripheral Aerobic Blood Culture - Final No growth in 5 days 05/03/18 17:40 Blood - Peripheral Anaerobic Blood Culture - Final No growth in 5 days 05/06/18 11:20 Stool Clostridium difficile GDH Antigen - Final Positive - C. difficile Antigen detected. 05/06/18 11:20 Stool Clostridium difficile Toxin Assay - Final Negative - No C. difficile Toxin A or B detected. Lab - Hematology Results 05/08/18 05/09/18 04:10 06:07 WBC 12.6 H 10.7 RBC 3.48 L 3.40 L Hgb 10.7 L 10.5 L Hct 32.4 L 31.7 L MCV 93.2 93.1 MCH 30.7 30.8 MCHC 32.9 33.1 RDW 14.4 14.0 Plt Count 206 199 MPV 8.2 8.6 Prelim Diff (Auto) Slide review pending Neut % (Auto) 93.8 H 87.5 H Lymph % (Auto) 3.7 L 7.7 L [place] % (Auto) 2.3 4.3 Eos % (Auto) 0.0 0.0 Baso % (Auto) 0.2 0.5 Neut # (Auto) 11.8 H 9.4 H Lymph # (Auto) 0.5 L 0.8 L [place] # (Auto) 0.3 0.5 Eos # (Auto) 0.0 0.0 Baso # (Auto) 0.0 0.1 WBC Differential . Manual diff final Seg Neuts % (Manual) 87 H Band Neuts % (Manual) 1 Lymphocytes % (Manual) 8 L Monocytes % (Manual) 3 Myelocytes % (Man) 1 H Abs Neuts (Manual) 9.5 H Differential Comment Auto diff final . Platelet Estimate Normal Platelet Morphology Normal Acanthocytes (Spur) Occ H Lab - Chemistry Results 05/06/18 05/07/18 05/07/18 11:33 16:03 18:34 Sodium Potassium Chloride Carbon Dioxide Anion Gap BUN Creatinine Estimated GFR POC Glucose 120 H 110 Random Glucose Calcium Phosphorus Magnesium Total Bilirubin AST ALT Alkaline Phosphatase Total Protein Albumin Albumin (PEP) 3.33 L Albumin/Globulin Ratio 1.02 L Xtotf-8-Xodmbawdi 0.25 Yuvgf-8-Pzlnmqeey 0.75 Beta Globulins 0.84 Gamma Globulins 1.43 H 05/07/18 05/07/18 05/08/18 20:04 22:38 00:12 Sodium Potassium Chloride Carbon Dioxide Anion Gap BUN Creatinine Estimated GFR POC Glucose 143 H 94 96 Random Glucose Calcium Phosphorus Magnesium Total Bilirubin AST ALT Alkaline Phosphatase Total Protein Albumin Albumin (PEP) Albumin/Globulin Ratio Zexvv-6-Gydamfhvt Danln-2-Lkynbysvk Beta Globulins Gamma Globulins 05/08/18 05/08/18 05/08/18 02:02 03:54 04:10 Sodium 145 Potassium 3.7 Chloride 111 H Carbon Dioxide 26.9 Anion Gap 7 BUN 11 Creatinine 1.17 Estimated GFR 73 L POC Glucose 96 84 Random Glucose 114 H Calcium 8.4 L Phosphorus 2.4 L Magnesium 1.9 Total Bilirubin 0.3 AST 23 ALT 21 Alkaline Phosphatase 71 Total Protein 6.6 Albumin 2.5 L Albumin (PEP) Albumin/Globulin Ratio Zzkjr-6-Ycoowcliv Wmbqd-3-Psihltwye Beta Globulins Gamma Globulins 05/08/18 05/08/18 05/08/18 06:37 07:36 10:02 Sodium Potassium Chloride Carbon Dioxide Anion Gap BUN Creatinine Estimated GFR POC Glucose 74 107 105 Random Glucose Calcium Phosphorus Magnesium Total Bilirubin AST ALT Alkaline Phosphatase Total Protein Albumin Albumin (PEP) Albumin/Globulin Ratio Lwcxo-4-Mckdnfvbr Mjgio-9-Nvwniepwj Beta Globulins Gamma Globulins 05/08/18 05/08/18 05/08/18 12:18 14:18 15:15 Sodium Potassium Chloride Carbon Dioxide Anion Gap BUN Creatinine Estimated GFR POC Glucose 99 130 H 131 H Random Glucose Calcium Phosphorus Magnesium Total Bilirubin AST ALT Alkaline Phosphatase Total Protein Albumin Albumin (PEP) Albumin/Globulin Ratio Nuvhn-4-Koxgaarek Emyyb-5-Rzbdbpetm Beta Globulins Gamma Globulins 05/08/18 05/08/18 05/08/18 16:59 18:20 20:08 Sodium Potassium Chloride Carbon Dioxide Anion Gap BUN Creatinine Estimated GFR POC Glucose 148 H 116 H 95 Random Glucose Calcium Phosphorus Magnesium Total Bilirubin AST ALT Alkaline Phosphatase Total Protein Albumin Albumin (PEP) Albumin/Globulin Ratio Gseqe-2-Exqhnkews Rhaip-5-Edznnxaan Beta Globulins Gamma Globulins 05/08/18 05/08/18 05/09/18 22:09 23:34 02:02 Sodium Potassium Chloride Carbon Dioxide Anion Gap BUN Creatinine Estimated GFR POC Glucose 105 111 H 96 Random Glucose Calcium Phosphorus Magnesium Total Bilirubin AST ALT Alkaline Phosphatase Total Protein Albumin Albumin (PEP) Albumin/Globulin Ratio Wvjul-9-Xjpayxvzk Sldgl-8-Qnulcpine Beta Globulins Gamma Globulins 05/09/18 05/09/18 05/09/18 04:25 06:07 06:15 Sodium 144 Potassium 3.4 L Chloride 106 Carbon Dioxide 28.5 Anion Gap 10 BUN 19 H Creatinine 1.18 Estimated GFR 73 L POC Glucose 99 100 Random Glucose 93 Calcium 7.6 L D Phosphorus 3.2 Magnesium 1.6 Total Bilirubin 0.4 AST 25 ALT 20 Alkaline Phosphatase 66 Total Protein 6.3 L Albumin 2.4 L Albumin (PEP) Albumin/Globulin Ratio Zzuku-1-Trovaqoql Llurf-5-Udgxjuwjh Beta Globulins Gamma Globulins 05/09/18 05/09/18 08:17 11:44 Sodium Potassium Chloride Carbon Dioxide Anion Gap BUN Creatinine Estimated GFR POC Glucose 98 114 H Random Glucose Calcium Phosphorus Magnesium Total Bilirubin AST ALT Alkaline Phosphatase Total Protein Albumin Albumin (PEP) Albumin/Globulin Ratio Mxdmn-9-Bzzwfmkzx Sfizr-2-Tpdlntepz Beta Globulins Gamma Globulins Imaging: ITS Impressions Cervical Spine CT 05/03/18 12:37 CONCLUSION: 1. 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 2. No acute cervical spine fracture identified. Head CT 05/03/18 12:37 CONCLUSION: 1. Microvascular ischemic demyelinative change. No acute intracranial abnormality identified. . Abdomen/Pelvis CT 05/04/18 00:00 CONCLUSION: 1. Thick walled urinary bladder with a Buchanan catheter. Similar findings were seen on the prior 2 studies. 2. No obstruction or acute inflammatory changes are seen of the gastrointestinal tract. 3. Mildly distended stomach despite presence of nasogastric tube. There is questionable wall thickening, especially greater curvature of the body. This is nonspecific. Chronic hiatal hernia. 4. Cholelithiasis again demonstrated. No associated inflammatory changes are seen. No duct stone or ductal dilatation. 5. Small effusions of the visualized lung bases and mild body wall edema/ anasarca. 6. Mild bibasilar atelectasis. Head MRI 05/04/18 00:00 CONCLUSION: 1. Moderate to severe chronic white matter ischemic changes. No recent infarct. 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 2. Sinus mucosal thickening. Chest X-Ray 05/07/18 07:16 CONCLUSION: Support apparatus in good position. Minimal bibasilar parenchymal changes. Physical Exam: GENERAL: awake and alert, following some commands, NAD. SKIN: Cool and dry. No generalized rash, no ecchymoses and no evidence of embolic lesions. HEAD: Atraumatic. Normocephalic. No temporal wasting, or tenderness. EYES: [place] conjunctiva. No petechia or hemorrhage. Pupils equal, round and reactive to light. No scleral icterus. No injection or drainage. EARS, NOSE AND THROAT: Nose without bleeding or purulent nasal discharge. No sinus tenderness. Mucous membranes pink and moist. Poor dentition. NECK: Trachea midline. Supple and not tender, no meningeal signs CARDIOVASCULAR: Regular rate and rhythm. No murmurs, rubs or gallops heard RESPIRATORY: Coarse breath sounds bilaterally, decreased at the bases. ABDOMEN: Soft, flat, non-tender, nondistended. Bowel sounds present and normoactive. No guarding. No rebound. No organomegaly. EXTREMITIES: No clubbing, cyanosis, or edema. No joint effusion, has good ROM. No calf tenderness. NEUROLOGICAL: Awake and following some commands. PSYCHIATRIC: Cooperative : Buchanan catheter in place, urine looks clear LINE: No evidence of infection Assessment and Plan - Plan Impression Klebsiella UTI, does self catheterization C difficile colitis Respiratory failure Seizure Drug screen (+) cocaine Recommendation Give 7 days Abx for UTI - will narrow down coverage and give Rocephin PO vanco for C diff and give 14 days Monitor progress Follow CBC End dates ordered in [employer]
[2018-05-09] MEDS: Dextrose 10% in Water Inj 500 ML IV.SIG SCH (16:34)
[2018-05-09] MEDS ORDERED: Dextrose 50% in Water 50 ML Vial IV.PUSH PRN (16:36)
[2018-05-09 18:00] LABS: Anti-Nuclear Antibody Pattern Centromere
[2018-05-10] MEDS: Hydrocortisone Sod Succinate 100 MG Vial IV.PUSH SCH ×4 (00:27→23:04)
[2018-05-10] MEDS: Insulin NovoLOG Aspart Correctional Sugar Inj SQ SCH ×4 (02:46→18:06)
[2018-05-10] MEDS: Oral Hygiene Kit OROPHARYNG SCH ×3 (03:17→16:17)
[2018-05-10 04:34] LABS: Baso % (Auto) 0.3 % (0.0-2.0); Hematocrit 37.5 % (39.0-51.0); Hemoglobin 12.1 gm/dL (13.0-17.0); Lymph % (Auto) 10.5 % (9.0-44.0); Mean Corpuscular HGB Conc 32.4 % (32.0-36.0); Mean Corpuscular Hemoglobin 30.6 pg (27.0-34.0); Mean Corpuscular Volume 94.6 fL (80.0-100.0); Mean Platelet Volume 8.5 fL (7.0-11.0); Mono # (Auto) 0.4 th/mm3 (0.0-0.9); Mono % (Auto) 4.6 % (0.0-8.0); Neut # (Auto) 8.1 th/mm3 (1.8-7.7); Neut % (Auto) 84.6 % (16.0-70.0); Platelet Count 255 th/mm3 (150-450); Red Blood Count 3.96 mil/mm3 (4.50-5.90); Red Cell Distribution Width 14.2 % (11.6-17.2); White Blood Count 9.6 th/mm3 (4.0-11.0)
[2018-05-10 04:40] LABS: INR 1.2 Ratio; Prothrombin Time 11.7 sec (9.8-11.6)
[2018-05-10 05:10] LABS: Alanine Aminotransferase 26 U/L (12-78); Albumin 2.7 g/dL (3.4-5.0); Alkaline Phosphatase 71 U/L (45-117); Amylase 91 U/L (25-115); Anion Gap 9 meq/L (5-15); Aspartate Aminotransferase 38 U/L (15-37); Blood Urea Nitrogen 24 mg/dL (7-18); Calcium 8.1 mg/dL (8.5-10.1); Carbon Dioxide 27.7 meq/L (21.0-32.0); Chloride 104 meq/L (98-107); Free T4 (Free Thyroxine) 1.08 ng/dL (0.76-1.46); Glomerular Filtration Rate 71 mL/min (>89); Glucose,Random 94 mg/dL (74-106); Magnesium 2.2 mg/dL (1.5-2.5); Phosphorus 2.3 mg/dL (2.5-4.9); Potassium 3.3 meq/L (3.5-5.1); Sodium 141 meq/L (136-145); Total Protein 7.1 g/dL (6.4-8.2)
[2018-05-10] MEDS: Heparin - SQ 10,000 UNITS/ML Vial SQ SCH ×2 (08:25→22:51)
[2018-05-10] MEDS: Chlorhexidine 0.12% Oral Kit 15 ML UDC OROPHARYNG SCH (08:25)
[2018-05-10] MEDS: dilTIAZem 60 MG Tablet PO SCH ×4 (08:25→22:51)
[2018-05-10] MEDS: Pantoprazole Inj 40 MG Vial IV.PUSH SCH (08:25)
[2018-05-10] MEDS: Senna/Docusate Sodium 8.6/50 MG Tablet PO SCH ×2 (08:26→22:51)
[2018-05-10] MEDS: Carboxymethylcellulose 0.5% Opth Drops 15 ML Bottle EACH EYE SCH ×2 (10:18→22:52)
[2018-05-10 17:34] LABS: Hemoglobin A1c 5.1 % (4.3-6.0)
[2018-05-11] MEDS: Insulin NovoLOG Aspart Correctional Sugar Inj SQ SCH ×5 (05:52→23:26)
[2018-05-11] MEDS: Hydrocortisone Sod Succinate 100 MG Vial IV.PUSH SCH ×2 (05:58→13:43)
[2018-05-11] MEDS: Heparin - SQ 10,000 UNITS/ML Vial SQ SCH ×2 (08:40→22:26)
[2018-05-11] MEDS: dilTIAZem 60 MG Tablet PO SCH ×4 (08:40→22:26)
[2018-05-11] MEDS: Senna/Docusate Sodium 8.6/50 MG Tablet PO SCH (08:40)
[2018-05-11] MEDS: Pantoprazole Inj 40 MG Vial IV.PUSH SCH (08:40)
[2018-05-11] MEDS: Carboxymethylcellulose 0.5% Opth Drops 15 ML Bottle EACH EYE SCH ×2 (08:42→22:26)
--- NOTE | 2018-05-11 10:19 | P.PNID ---
Subjective Remarks: Patient is a 78-year-old male, presented to the emergency room complaining of 6- month history of worsening generalized weakness. There is been poor p.o. intake , and there is mention that he was almost homeless. He did not have any abdominal pain, diarrhea, nausea or vomiting patient has previous history of BPH , prostate cancer, status post TURP, and he does self-catheterization. In the ED he had CT of the brain which did not show any acute process. He had electrolyte imbalance. While in the ED he apparently had a witnessed seizure, and post ictal he was quite confused and required intubation. Patient has remained intubated since. He has not been febrile. His urinalysis showed some pyuria. Urine culture is growing Klebsiella. He also started having diarrhea, and stool for C. difficile came back positive. His white count is mildly elevated today to 12,000. Patient currently remains on the vent. He is awake and following commands. His hemodynamics are stable. He is afebrile. He has a rectal bag and has liquid stool. Infectious disease consultation has been requested to assist with evaluation and treatment of his UTI, and C. difficile colitis. Notes reviewed Temps ok Doing well States he had one loose stool early AM No abdominal pain No N/V C diff PCR (+), Ag (+) C diff toxin negative BP ok WBC better UC Klebsiella Antibiotics: Rocephin PO Vanco Past Medical History: Alcohol use Gastroesophageal reflux disease HTN (hypertension) Hypomagnesemia Osteoarthritis Tetrahydrocannabinol (THC) use disorder, mild, abuse Cocaine abuse in remission Prostate cancer TIA (transient ischemic attack) Urinary retention due to benign prostatic hyperplasia H/O cystoscopy History of ERCP History of esophagogastroduodenoscopy (EGD) S/P TURP Allergies/Adverse Reactions: Allergies No Known Allergies Allergy (Verified 05/03/18 09:59) Objective Vital Signs 05/10/18 11:00 05/10/18 12:00 05/10/18 13:00 Temperature 98.0 F Pulse Rate 92 H 92 H 83 Respiratory Rate 16 19 14 Blood Pressure 156/72 H 142/65 H 177/76 H Pulse Oximetry 96 96 95 05/10/18 14:00 05/10/18 15:00 05/10/18 16:00 Temperature 98.0 F Pulse Rate 90 90 95 H Respiratory Rate 18 17 17 Blood Pressure 152/73 H 154/73 H 144/69 H Pulse Oximetry 95 95 95 05/10/18 17:00 05/10/18 19:43 05/10/18 20:00 Temperature 98.3 F Pulse Rate 82 94 H Respiratory Rate 17 18 Blood Pressure 154/72 H 149/71 H Pulse Oximetry 93 L 100 96 05/11/18 00:00 05/11/18 04:00 05/11/18 07:53 Temperature 98.8 F 98.7 F 98.6 F Pulse Rate 96 H 97 H 87 Respiratory Rate 18 20 18 Blood Pressure 147/72 H 143/70 H 152/77 H Pulse Oximetry 96 95 96 Intake & Output 05/10/18 05/11/18 05/11/18 18:59 06:59 18:59 Intake Total 625 / 625 505 / 505 Output Total 1600 / 1600 1501 / 1501 Balance -975 / -975 -996 / -996 Weight 57.9 kg Intake: IV 205 / 205 105 / 105 Rocephin Inj 2,000 MG In NS Inj 100 / 100 100 ML @ 200 mls/hr IV.SIG Q24H [facility] Rx#:[id number] Keppra Inj 500 MG In NS Inj 100 105 / 105 105 / 105 ML @ 400 mls/hr IV.SIG Q12H [facility] Rx#:[id number] Oral 420 / 420 400 / 400 Output: Urine 1600 / 1600 Urine/Stool Mix 1 / 1 Urine Amount (Catheter) 1500 / 1500 Straight 1500 / 1500 Other: # Voids 2 # Incontinent Voids 1 Date of Last Bowel Movement 05/09/18 05/11/18 05/03/18 17:35 Blood - Peripheral Aerobic Blood Culture - Final No growth in 5 days 05/03/18 17:35 Blood - Peripheral Anaerobic Blood Culture - Final No growth in 5 days 05/03/18 17:40 Blood - Peripheral Aerobic Blood Culture - Final No growth in 5 days 05/03/18 17:40 Blood - Peripheral Anaerobic Blood Culture - Final No growth in 5 days Lab - Hematology Results 05/10/18 04:03 WBC 9.6 RBC 3.96 L Hgb 12.1 L Hct 37.5 L MCV 94.6 MCH 30.6 MCHC 32.4 RDW 14.2 Plt Count 255 MPV 8.5 Neut % (Auto) 84.6 H Lymph % (Auto) 10.5 [place] % (Auto) 4.6 Eos % (Auto) 0.0 Baso % (Auto) 0.3 Neut # (Auto) 8.1 H Lymph # (Auto) 1.0 [place] # (Auto) 0.4 Eos # (Auto) 0.0 Baso # (Auto) 0.0 WBC Differential . Differential Comment Auto diff final Lab - Chemistry Results 05/06/18 05/09/18 05/09/18 11:33 11:44 16:31 Sodium Potassium Chloride Carbon Dioxide Anion Gap BUN Creatinine Estimated GFR POC Glucose 114 H 113 H Random Glucose Hemoglobin A1c Calcium Phosphorus Magnesium Total Bilirubin AST ALT Alkaline Phosphatase [place] Total Protein Albumin PEP Pathologist Comment Amylase TSH Free T4 05/09/18 05/10/18 05/10/18 19:59 02:36 04:03 Sodium Potassium Chloride Carbon Dioxide Anion Gap BUN Creatinine Estimated GFR POC Glucose 108 95 Random Glucose Hemoglobin A1c 5.1 Calcium Phosphorus Magnesium Total Bilirubin AST ALT Alkaline Phosphatase [place] Total Protein Albumin PEP Pathologist Comment Amylase TSH Free T4 05/10/18 05/10/18 05/10/18 04:03 04:03 05:26 Sodium 141 Potassium 3.3 L Chloride 104 Carbon Dioxide 27.7 Anion Gap 9 BUN 24 H Creatinine 1.21 Estimated GFR 71 L POC Glucose 102 Random Glucose 94 Hemoglobin A1c Calcium 8.1 L Phosphorus 2.3 L Magnesium 2.2 D Total Bilirubin 0.5 AST 38 H ALT 26 Alkaline Phosphatase 71 [place] 13 Total Protein 7.1 D Albumin 2.7 L PEP Pathologist Comment Amylase 91 TSH 1.550 Free T4 1.08 05/10/18 05/10/18 05/10/18 08:39 12:00 17:51 Sodium Potassium Chloride Carbon Dioxide Anion Gap BUN Creatinine Estimated GFR POC Glucose 85 95 102 Random Glucose Hemoglobin A1c Calcium Phosphorus Magnesium Total Bilirubin AST ALT Alkaline Phosphatase [place] Total Protein Albumin PEP Pathologist Comment Amylase TSH Free T4 05/10/18 05/11/18 05/11/18 22:20 06:11 08:18 Sodium Potassium Chloride Carbon Dioxide Anion Gap BUN Creatinine Estimated GFR POC Glucose 100 90 100 Random Glucose Hemoglobin A1c Calcium Phosphorus Magnesium Total Bilirubin AST ALT Alkaline Phosphatase [place] Total Protein Albumin PEP Pathologist Comment Amylase TSH Free T4 Imaging: ITS Impressions Cervical Spine CT 05/03/18 12:37 CONCLUSION: 1. 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 2. No acute cervical spine fracture identified. Head CT 05/03/18 12:37 CONCLUSION: 1. Microvascular ischemic demyelinative change. No acute intracranial abnormality identified. . Abdomen/Pelvis CT 05/04/18 00:00 CONCLUSION: 1. Thick walled urinary bladder with a Buchanan catheter. Similar findings were seen on the prior 2 studies. 2. No obstruction or acute inflammatory changes are seen of the gastrointestinal tract. 3. Mildly distended stomach despite presence of nasogastric tube. There is questionable wall thickening, especially greater curvature of the body. This is nonspecific. Chronic hiatal hernia. 4. Cholelithiasis again demonstrated. No associated inflammatory changes are seen. No duct stone or ductal dilatation. 5. Small effusions of the visualized lung bases and mild body wall edema/ anasarca. 6. Mild bibasilar atelectasis. Head MRI 05/04/18 00:00 CONCLUSION: 1. Moderate to severe chronic white matter ischemic changes. No recent infarct. 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 2. Sinus mucosal thickening. Chest X-Ray 05/07/18 07:16 CONCLUSION: Support apparatus in good position. Minimal bibasilar parenchymal changes. Physical Exam: GENERAL: awake and alert, following commands, NAD. SKIN: Cool and dry. No generalized rashs. HEAD: Atraumatic. Normocephalic. No temporal wasting, or tenderness. EYES: [place] conjunctiva. No petechia or hemorrhage. Pupils equal, round and reactive to light. No scleral icterus. No injection or drainage. EARS, NOSE AND THROAT: Nose without bleeding or purulent nasal discharge. Mucous membranes pink and moist. Poor dentition. NECK: Trachea midline. Supple and not tender, no meningeal signs CARDIOVASCULAR: Regular rate and rhythm. No murmurs, rubs or gallops heard RESPIRATORY: Coarse breath sounds bilaterally, decreased at the bases. ABDOMEN: Soft, flat, non-tender, nondistended. Bowel sounds present and normoactive. No guarding. No rebound. No organomegaly. EXTREMITIES: No clubbing, cyanosis, or edema. No calf tenderness. NEUROLOGICAL: Awake and following some commands. 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
--- NOTE | 2018-05-11 10:35 | P.PN ---
Subjective Interval history: awake and alert, speech slow but interactive and smiling and answered appropriately, ff all commands sitting on the side of the bed- seen with therapists denies any pain at present- states he does self catheterization for the past 3-4 years on the average 3x a day + stools soft, thick, mushy wants to eat more Physical Exam Vital signs: Vital Signs 05/10/18 11:00 05/10/18 12:00 05/10/18 13:00 Temperature 98.0 F Pulse Rate 92 H 92 H 83 Respiratory Rate 16 19 14 Blood Pressure 156/72 H 142/65 H 177/76 H Pulse Oximetry 96 96 95 05/10/18 14:00 05/10/18 15:00 05/10/18 16:00 Temperature 98.0 F Pulse Rate 90 90 95 H Respiratory Rate 18 17 17 Blood Pressure 152/73 H 154/73 H 144/69 H Pulse Oximetry 95 95 95 05/10/18 17:00 05/10/18 19:43 05/10/18 20:00 Temperature 98.3 F Pulse Rate 82 94 H Respiratory Rate 17 18 Blood Pressure 154/72 H 149/71 H Pulse Oximetry 93 L 100 96 05/11/18 00:00 05/11/18 04:00 05/11/18 07:53 Temperature 98.8 F 98.7 F 98.6 F Pulse Rate 96 H 97 H 87 Respiratory Rate 18 20 18 Blood Pressure 147/72 H 143/70 H 152/77 H Pulse Oximetry 96 95 96 Intake & Output 05/10/18 05/11/18 05/11/18 18:59 06:59 18:59 Intake Total 625 / 625 505 / 505 Output Total 1600 / 1600 1501 / 1501 Balance -975 / -975 -996 / -996 Weight 57.9 kg Intake: IV 205 / 205 105 / 105 Rocephin Inj 2,000 MG In NS Inj 100 / 100 100 ML @ 200 mls/hr IV.SIG Q24H [facility] Rx#:[id number] Keppra Inj 500 MG In NS Inj 100 105 / 105 105 / 105 ML @ 400 mls/hr IV.SIG Q12H [facility] Rx#:[id number] Oral 420 / 420 400 / 400 Output: Urine 1600 / 1600 Urine/Stool Mix 1 / Urine Amount (Catheter) 1500 / 1500 Straight 1500 / 1500 Other: # Voids 2 # Incontinent Voids 1 Date of Last Bowel Movement 05/09/18 05/11/18 Narrative: Physical Examination GENERAL: Patient is a thin, well-developed male, AWAKE AND ALERT, opriented to person, " [place]", not in respiratory distress. SKIN: Cool and dry. No generalized rash, no ecchymoses HEAD: Atraumatic. Normocephalic. EYES: [place] conjunctiva.Pupils equal, round and reactive to light. No scleral icterus. No injection or drainage. EARS, NOSE AND THROAT: Nose without bleeding or purulent nasal discharge. Mucous membranes pink and moist. Poor dentition. NECK: Trachea midline. Supple and not tender, no meningeal signs CARDIOVASCULAR: Regular rate and rhythm. RESPIRATORY: no rales, no wheezes ABDOMEN: Soft, flat, non-tender, nondistended. Bowel sounds present and normoactive. No guarding. No rebound. EXTREMITIES: No clubbing, cyanosis, or edema. No joint effusion, has good ROM. No calf tenderness. NEUROLOGICAL: Awake and following some commands. PSYCHIATRIC: Insight and judgment is limited. pleasant and cooperative - Urinary Catheter Management Straight Cath placed during this visit: yes, but has since been removed by the nurse Reason for continuing: Hourly intake/output Insertion date: 05/03/18 Insertion time: 18:24 Removal date: 05/03/18 Removal time: 15:14 Indwelling Urethral Catheter Cath placed during this visit: no Results - Labs CBC & Chem 7: 05/10/18 04:03 05/10/18 04:03 Laboratory Results - last 24 hr 05/03/18 05/10/18 05/10/18 12:45 04:03 12:00 POC Glucose 95 Hemoglobin A1c 5.1 Urine Immunofixation 05/10/18 05/10/18 05/11/18 17:51 22:20 06:11 POC Glucose 102 100 90 Hemoglobin A1c Urine Immunofixation 05/11/18 08:18 POC Glucose 100 Hemoglobin A1c Urine Immunofixation - Procedures VDRF VENT MANAGEMENT INTUBATION EXTUBATION Assessment and Plan - Plan Patient is a 78-year-old male with a C. difficile toxin colitis and seizures has been extubated. And has now been transferred to our service. 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 - ID ff Give 7 days Abx for UTI - Rocephin till 05/13 - po vanco DC today 05/11 - Dc Pericolace and dulcolasx ansd all stools softeners Monitor progress Follow CBC Seizure Drug screen (+) cocaine -change to po keppra Sinus tachycardia improved Hypertension Elevated troponin -Remains on hydralazine and Cardizem and as needed labetalol Status post vent dependent respiratory failure has been extubated- Resolved Had acute hypoxic and hypercarbic respiratory failure which is resolved Continue incentive spirometry - on Hydrocoortisone taper protocol till 05/13 GERD Continue on PPI- change to po Hypokalemia - give KCL 30 meq po x 1 today, recheck in am PT and OT speech therapy \\ DC planning- CM consult
--- NOTE | 2018-05-11 13:26 | P.DIET ---
Nutritional Evaluation Type of nutrition evaluation: follow-up Nutrition consult regarding: Tube Feeding Screening comments: TFing d/c'ed on 05/08 and diet has been advanced. Pt is eating >50%. Consult RD if needed. Objective - Diagnosis Hypomagnesia - Objective % IBW: 85 (IBW = 148#) Body Weight Used for Calculations: Actual (57.5 kg) Energy Needs - Lower Range (kCal/kg): 30 Energy Needs - Upper Range (kCal/kg): 35 Lower Limit kCal/kg (kCals): 1,725 Upper Limit kCal/kg (kCals): 2,013 Lower Limit Protein Factor (Grams per Kg): 1.2 Upper Limit Protein Factor (Grams per Kg): 1.6 Lower Protein Needs (Protein): 69 Upper Protein Needs (Protein): 92 Dietitian Reviewed in Medical Record: Curent medications, Intake & Output, Labs , Medical history, Tube feeding
--- NOTE | 2018-05-11 17:22 | P.PNNEU ---
Subjective Subjective Comments: on floor Active Medications: Active Medications Acetaminophen (Tylenol) 650 mg PO Q6H PRN PRN Reason: Fever >101f Al Hydroxide/Mg Hydroxide (Milk Of Magnsami Liq) 30 ml PO Q12H PRN PRN Reason: Mild Constipation Albuterol (Albuterol Neb (Prn)) 2.5 mg NEB Q2HR NEB PRN PRN Reason: SHORTNESS OF BREATH/WHEEZING Artificial Tears (Refresh Tears 0.5% Opth Drops) 1 drop EACH EYE BID PENDING SALE TO [facility] Last Admin: 05/11/18 08:42 Dose: 1 drop Dextrose (D50w Vial) 50 ml IV.PUSH UNSCH PRN PRN Reason: PER HYPOGLYCEMIA PROTOCOL Diltiazem HCl (Cardizem) 60 mg PO QID PENDING SALE TO [facility] Last Admin: 05/11/18 13:42 Dose: 60 mg Glucagon (Glucagon Inj) 1 mg OTHER PRN PRN PRN Reason: for Hypoglycemia Protocol Heparin Sodium (Porcine) (Heparin Inj) 5,000 units SQ Q12H PENDING SALE TO [facility] Last Admin: 05/11/18 08:40 Dose: 5,000 units Hydralazine HCl (Apresoline) 100 mg PO Q8HR PENDING SALE TO [facility] Last Admin: 05/11/18 13:42 Dose: 100 mg Hydrocortisone Sodium Succinate (Solucortef Inj) 25 mg IV.PUSH Q12H PENDING SALE TO [facility]; Taper Stop: 05/13/18 12:59 Last Admin: 05/11/18 13:43 Dose: 25 mg Ceftriaxone Sodium 2,000 mg/ (Sodium Chloride) 100 mls @ 200 mls/hr IV.SIG Q24H PENDING SALE TO [facility] Stop: 05/13/18 23:00 Last Infusion: 05/11/18 12:01 Dose: Infused Insulin Aspart (Novolog Insulin Correctional Sugar Inj) 0 unit SQ ACHS AND 3AM [facility]; Protocol Last Admin: 05/11/18 17:05 Dose: Not Given Levetiracetam (Keppra) 500 mg PO BID PENDING SALE TO [facility] Ondansetron HCl (Zofran Inj) 4 mg IV.PUSH Q6H PRN PRN Reason: NAUSEA OR VOMITING Pantoprazole Sodium (Protonix) 40 mg PO DAILY PENDING SALE TO [facility] Sodium Chloride (Ns Flush) 2 ml IV.FLUSH BID PENDING SALE TO [facility] Last Admin: 05/11/18 08:41 Dose: 2 ml Sodium Chloride (Ns Flush) 2 ml IV.FLUSH PRN PRN PRN Reason: FLUSH AFTER USING IV ACCESS Allergies/Adverse Reactions: Allergies Allergy/AdvReac Type Severity Reaction Status Date / Time No Known Allergies Allergy Verified 05/03/18 09:59 Physical Exam Vital signs: Vital Signs 05/10/18 19:43 05/10/18 20:00 05/11/18 00:00 Temperature 98.3 F 98.8 F Pulse Rate 94 H 96 H Respiratory Rate 18 18 Blood Pressure 149/71 H 147/72 H Pulse Oximetry 100 96 96 05/11/18 04:00 05/11/18 07:53 05/11/18 12:00 Temperature 98.7 F 98.6 F 98.8 F Pulse Rate 97 H 87 89 Respiratory Rate 20 18 18 Blood Pressure 143/70 H 152/77 H 132/66 Pulse Oximetry 95 96 96 05/11/18 15:38 Temperature 99.8 F H Pulse Rate 94 H Respiratory Rate 18 Blood Pressure 121/64 Pulse Oximetry 97 Intake & Output 05/10/18 05/11/18 05/11/18 18:59 06:59 18:59 Intake Total 625 / 625 505 / 505 700 / 700 Output Total 1600 / 1600 1501 / 1501 Balance -975 / -975 -996 / -996 700 / 700 Weight 57.9 kg Intake: IV 205 / 205 105 / 105 100 / 100 Rocephin Inj 2,000 MG In NS Inj 100 / 100 100 / 100 100 ML @ 200 mls/hr IV.SIG Q24H [facility] Rx#:[id number] Keppra Inj 500 MG In NS Inj 100 105 / 105 105 / 105 ML @ 400 mls/hr IV.SIG Q12H [facility] Rx#:[id number] Oral 420 / 420 400 / 400 600 / 600 Output: Urine 1600 / 1600 Urine/Stool Mix 1 / 1 Urine Amount (Catheter) 1500 / 1500 Straight 1500 / 1500 Other: # Voids 2 # Incontinent Voids 1 Date of Last Bowel Movement 05/09/18 05/11/18 05/09/18 Narrative: ox3 vff face sym 5/5 t/o all 4 ext - Urinary Catheter Management Straight Cath placed during this visit: yes, but has since been removed by the nurse Reason for continuing: Hourly intake/output Insertion date: 05/03/18 Insertion time: 18:24 Removal date: 05/03/18 Removal time: 15:14 Indwelling Urethral Catheter Cath placed during this visit: no Reason for continuing: Not indwelling catheter Objective Laboratory Results - last 24 hr 05/06/18 05/10/18 05/10/18 11:33 04:03 17:51 POC Glucose 102 Hemoglobin A1c 5.1 Anti-Mitochondrial Titr ND Anti-Mitochondrial Ab Negative 05/10/18 05/11/18 05/11/18 22:20 06:11 08:18 POC Glucose 100 90 100 Hemoglobin A1c Anti-Mitochondrial Titr Anti-Mitochondrial Ab 05/11/18 11:56 POC Glucose 127 H Hemoglobin A1c Anti-Mitochondrial Titr Anti-Mitochondrial Ab Review/Management - Review/Management Plan: inmp try and dc sedatives 05/11/18 back to on keppra can continue this but needs to dc cocaine will sing off roopa mild inc likley not clinically sign
--- NOTE | 2018-05-11 18:12 | P.PNIM ---
Subjective Interval history: Late entry. Patient seen yesterday. Date of service 05/10/18. Patient says he is feeling better. Denies any chest pain or shortness of breath. Denies abdominal pain. Still with diarrhea. Physical Exam Vital signs: Vital Signs 05/10/18 19:43 05/10/18 20:00 05/11/18 00:00 Temperature 98.3 F 98.8 F Pulse Rate 94 H 96 H Respiratory Rate 18 18 Blood Pressure 149/71 H 147/72 H Pulse Oximetry 100 96 96 05/11/18 04:00 05/11/18 07:53 05/11/18 12:00 Temperature 98.7 F 98.6 F 98.8 F Pulse Rate 97 H 87 89 Respiratory Rate 20 18 18 Blood Pressure 143/70 H 152/77 H 132/66 Pulse Oximetry 95 96 96 05/11/18 15:38 Temperature 99.8 F H Pulse Rate 94 H Respiratory Rate 18 Blood Pressure 121/64 Pulse Oximetry 97 Intake & Output 05/10/18 05/11/18 05/11/18 18:59 06:59 18:59 Intake Total 625 / 625 505 / 505 700 / 700 Output Total 1600 / 1600 1501 / 1501 Balance -975 / -975 -996 / -996 700 / 700 Weight 57.9 kg Intake: IV 205 / 205 105 / 105 100 / 100 Rocephin Inj 2,000 MG In NS Inj 100 / 100 100 / 100 100 ML @ 200 mls/hr IV.SIG Q24H [facility] Rx#:[id number] Keppra Inj 500 MG In NS Inj 100 105 / 105 105 / 105 ML @ 400 mls/hr IV.SIG Q12H [facility] Rx#:[id number] Oral 420 / 420 400 / 400 600 / 600 Output: Urine 1600 / 1600 Urine/Stool Mix 1 / Urine Amount (Catheter) 1500 / 1500 Straight 1500 / 1500 Other: # Voids 2 # Incontinent Voids 1 Date of Last Bowel Movement 05/09/18 05/11/18 05/09/18 Narrative: GENERAL: Patient lying in bed. Appears comfortable. SKIN: Warm and dry. HEAD: Normocephalic. EYES: No scleral icterus. No injection or drainage. NECK: Supple, trachea midline. No JVD. CARDIOVASCULAR: Regular rate and rhythm without murmurs, gallops, or rubs. RESPIRATORY: Breath sounds equal bilaterally. No accessory muscle use. GASTROINTESTINAL: Abdomen soft, non-tender, nondistended. MUSCULOSKELETAL: No cyanosis, or edema. BACK: Nontender without obvious deformity. No CVA tenderness. - Urinary Catheter Management Straight Cath placed during this visit: yes, but has since been removed by the nurse Reason for continuing: Hourly intake/output Insertion date: 05/03/18 Insertion time: 18:24 Removal date: 05/03/18 Removal time: 15:14 Indwelling Urethral Catheter Cath placed during this visit: no Reason for continuing: Not indwelling catheter Results - Labs CBC & Chem 7: 05/10/18 04:03 05/10/18 04:03 Laboratory Results - last 24 hr 05/06/18 05/10/18 05/10/18 11:33 04:03 22:20 POC Glucose 100 Hemoglobin A1c 5.1 Anti-Mitochondrial Titr ND Anti-Mitochondrial Ab Negative 05/11/18 05/11/18 05/11/18 06:11 08:18 11:56 POC Glucose 90 100 127 H Hemoglobin A1c Anti-Mitochondrial Titr Anti-Mitochondrial Ab - Procedures VDRF VENT MANAGEMENT INTUBATION EXTUBATION Assessment and Plan - Plan Patient is a 78-year-old male with a C. difficile toxin colitis and seizures has been extubated. And has now been transferred to our service. 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 Continues on pured diet as per speech. Continue to monitor. //Sinus tachycardia improved Hypertension Elevated troponin -Remains on hydralazine and Cardizem and as needed labetalol = Blood pressure is acceptable. Continue to monitor. //Status post vent dependent respiratory failure has been extubated Had acute hypoxic and hypercarbic respiratory failure which is resolved Continue incentive spirometry //GERD and elevated ammonia level Continue on lactulose Having positive C. difficile toxin colitis also continue on oral vancomycin 250 mg p.o. 4 times daily = Ammonia level resolved. //Hypokalemia will replace as needed = Potassium 3.3. Replace. //History of BPH Prostate cancer poorly differentiated adenocarcinoma 2005 status post TURP UTI positive Klebsiella pneumoniae urinary tract infection-per infectious //C. difficile toxin colitis continue on oral vancomycin 4 times a day 250 mg PT and OT Discharge Planning: Transfer to floor.
[2018-05-11] MEDS: levETIRAcetam 500 MG Tablet PO SCH (22:25)
[2018-05-12] MEDS: Hydrocortisone Sod Succinate 100 MG Vial IV.PUSH SCH ×2 (01:51→15:03)
[2018-05-12] MEDS: Insulin NovoLOG Aspart Correctional Sugar Inj SQ SCH ×5 (05:22→21:26)
--- NOTE | 2018-05-12 09:45 | P.PN ---
Subjective Interval history: awake and alert states still having some loose stools - softer no pain complains Physical Exam Vital signs: Vital Signs 05/11/18 12:00 05/11/18 15:38 05/11/18 20:00 Temperature 98.8 F 99.8 F H 98.3 F Pulse Rate 89 94 H 97 H Respiratory Rate 18 18 20 Blood Pressure 132/66 121/64 116/70 Pulse Oximetry 96 97 94 L 05/12/18 00:00 05/12/18 04:00 05/12/18 08:00 Temperature 98.5 F 99.1 F 98.2 F Pulse Rate 98 H 98 H 97 H Respiratory Rate 20 20 20 Blood Pressure 124/64 118/71 125/71 Pulse Oximetry 96 98 100 Intake & Output 05/11/18 05/12/18 05/12/18 18:59 06:59 18:59 Intake Total 700 / 700 240 / 240 Output Total 475 / 475 1300 / 1300 Balance 225 / 225 -1060 / -1060 Weight 57.4 kg Intake: IV 100 / 100 Rocephin Inj 2,000 MG In NS Inj 100 / 100 100 ML @ 200 mls/hr IV.SIG Q24H [facility] Rx#:[id number] Oral 600 / 600 240 / 240 Output: Urine Amount (Catheter) 475 / 475 1300 / 1300 Straight 475 / 475 1300 / 1300 Other: Date of Last Bowel Movement 05/09/18 05/12/18 # Incontinent Bowel Movements 1 Narrative: awake and alert, oriented, x 3 speech clear anicteric neck supple lungs- no raels, no wheezes regular rhythm abdmen- soft, nontender extremiteis no edema- moves all exremities spotnaenously - Urinary Catheter Management Straight Cath placed during this visit: yes, but has since been removed by the nurse Reason for continuing: Hourly intake/output Insertion date: 05/03/18 Insertion time: 18:24 Removal date: 05/03/18 Removal time: 15:14 Indwelling Urethral Catheter Cath placed during this visit: no Reason for continuing: Not indwelling catheter Results - Labs CBC & Chem 7: 05/10/18 04:03 05/13/18 05:08 Laboratory Results - last 24 hr 05/06/18 05/11/18 05/11/18 11:33 11:56 22:25 POC Glucose 127 H 94 Anti-Mitochondrial Titr ND Anti-Mitochondrial Ab Negative 05/12/18 01:55 POC Glucose 83 Anti-Mitochondrial Titr Anti-Mitochondrial Ab - Procedures VDRF VENT MANAGEMENT INTUBATION EXTUBATION Assessment and Plan - Plan Patient is a 78-year-old male with a C. difficile toxin colitis and seizures has been extubated. And has now been transferred to our service. 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 - ID ff Give 7 days Abx for UTI- Rocephin till 05/13 - po vanco DC 05/11 - Dc Pericolace and dulcolasx and all stools softeners - Monitor BMs - still having frequent BM- start IVF if creatinine not improved Seizure Drug screen (+) cocaine -500 mg bid - keppra Sinus tachycardia improved Hypertension Elevated troponin -Remains on hydralazine and Cardizem and as needed labetalol Status post vent dependent respiratory failure has been extubated- Resolved Had acute hypoxic and hypercarbic respiratory failure which is resolved Continue incentive spirometry - on Hydrocoortisone taper protocol till 05/13 GERD Continue on PPI- change to po Hypokalemia - received KCL 05/11- recheck -recheck this am- replace if needed PT and OT- out of bed to chair for all meals speech therapy DC planning- CM consult- needs rehab
[2018-05-12] MEDS: levETIRAcetam 500 MG Tablet PO SCH ×2 (10:24→21:18)
[2018-05-12] MEDS: dilTIAZem 60 MG Tablet PO SCH ×4 (10:24→21:22)
[2018-05-12] MEDS: Carboxymethylcellulose 0.5% Opth Drops 15 ML Bottle EACH EYE SCH ×2 (10:25→21:19)
[2018-05-12] MEDS: Heparin - SQ 10,000 UNITS/ML Vial SQ SCH ×2 (10:25→21:19)
[2018-05-12 11:52] LABS: Calcium 7.9 mg/dL (8.5-10.1); Carbon Dioxide 29.9 meq/L (21.0-32.0); Potassium 3.2 meq/L (3.5-5.1)
[2018-05-12] MEDS: Potassium Chloride 10 MEQ ER Capsule PO SCH ×2 (15:00→21:18)
[2018-05-12] MEDS: Potassium Chloride Inj 30 MEQ in Dextrose 5%/NaCl 0.9% Inj 1,000 ML IV.CONT SCH (15:06)
[2018-05-13] MEDS: Insulin NovoLOG Aspart Correctional Sugar Inj SQ SCH ×5 (04:56→22:23)
[2018-05-13] MEDS: Potassium Chloride Inj 30 MEQ in Dextrose 5%/NaCl 0.9% Inj 1,000 ML IV.CONT SCH ×2 (05:15→22:32)
[2018-05-13 07:30] LABS: Calcium 7.7 mg/dL (8.5-10.1); Carbon Dioxide 28.5 meq/L (21.0-32.0)
[2018-05-13 07:52] LABS: Potassium 2.8 meq/L (3.5-5.1)
[2018-05-13] MEDS: Potassium Chloride 10 MEQ ER Capsule PO SCH (09:00)
[2018-05-13] MEDS: Carboxymethylcellulose 0.5% Opth Drops 15 ML Bottle EACH EYE SCH ×2 (09:00→22:23)
--- NOTE | 2018-05-13 09:50 | P.PN ---
Subjective Interval history: "pooping a lot" patient still with persistent stooling- stools though is soft pasty, brown, no blood but- big puddle - a lot and frequent no nausea or vomiting, no abdominal pain good po intake Physical Exam Vital signs: Vital Signs 05/12/18 12:00 05/12/18 16:00 05/12/18 20:00 Temperature 98.1 F 98.0 F 98.8 F Pulse Rate 97 H 106 H 100 H Respiratory Rate 18 20 18 Blood Pressure 113/58 L 118/71 145/72 H Pulse Oximetry 98 98 96 05/13/18 00:00 05/13/18 04:00 05/13/18 07:56 Temperature 99.2 F 98.5 F 98.5 F Pulse Rate 92 H 88 88 Respiratory Rate 18 18 18 Blood Pressure 124/66 145/68 H 139/72 Pulse Oximetry 96 97 95 Intake & Output 05/12/18 05/13/18 05/13/18 18:59 06:59 18:59 Intake Total 700 / 700 1015 / 1015 Output Total 1750 / 1750 300 / 300 Balance -1050 / -1050 715 / 715 Weight 57.4 kg Intake: IV 100 / 100 1015 / 1015 KCl Inj 30 MEQ In D5W/Normal 1015 / 1015 Saline Inj 1,000 ML @ 70 mls/hr IV.CONT .[id number] [facility] Rx#: [id number] Rocephin Inj 2,000 MG In NS Inj 100 / 100 100 ML @ 200 mls/hr IV.SIG Q24H [facility] Rx#:[id number] Oral 600 / 600 Output: Urine 300 / 300 Stool 500 / 500 Urine Amount (Catheter) 1250 / 1250 Straight 1250 / 1250 Other: # Incontinent Voids 1 Date of Last Bowel Movement 05/12/18 05/12/18 # Bowel Movements 2 # Incontinent Bowel Movements 2 Narrative: awake and alert, oriented, x 3 speech clear anicteric neck supple lungs- no rales, no wheezes regular rhythm abdomen- soft, nontender extremities no edema- moves all extremities spontaneously - Urinary Catheter Management Straight Cath placed during this visit: yes, but has since been removed by the nurse Reason for continuing: Hourly intake/output Insertion date: 05/03/18 Insertion time: 18:24 Removal date: 05/03/18 Removal time: 15:14 Indwelling Urethral Catheter Cath placed during this visit: no Reason for continuing: Not indwelling catheter Results - Labs CBC & Chem 7: 05/10/18 04:03 05/13/18 05:08 Laboratory Results - last 24 hr 05/12/18 05/13/18 10:52 05:08 Sodium 141 142 Potassium 3.2 L 2.8 L* Chloride 101 105 Carbon Dioxide 29.9 28.5 Anion Gap 10 9 BUN 18 16 Creatinine 1.38 H 1.17 Estimated GFR 61 L 73 L Random Glucose 157 H 78 Calcium 7.9 L 7.7 L - Procedures VDRF VENT MANAGEMENT INTUBATION EXTUBATION Assessment and Plan - Plan Patient is a 78-year-old male with a C. difficile toxin colitis and seizures has been extubated. And has now been transferred to our service. 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 Persistent Loose stools/freq BM - po vanco DC 05/11 - Pericolace and dulcolasx and all stools softeners were DC days ago - Monitor BMs - still having frequent BM - GI consult- for colonoscopy JACOBO from persistent diarrhea - started IVF 05/12- cratinine better today - cotninue IVF- ff BMP- creatinine improved to 1.17 with IVF Hypokalemia - from diarrhea K 2.8 -IVF with KCL -give KCL 10 meq bolus x 3 - increased po CKL to 20mmeq po bid Seizure- no further episode Drug screen (+) cocaine -500 mg bid - keppra Sinus tachycardia improved Hypertension Elevated troponin -on hydralazine and Cardizem and as needed labetalol Status post vent dependent respiratory failure has been extubated- Resolved Had acute hypoxic and hypercarbic respiratory failure which is resolved Continue incentive spirometry - on Hydrocoortisone taper protocol till 05/13 GERD Continue on PPI- po PT and OT- out of bed to chair for all meals speech therapy DC planning- CM consult- needs rehab
[2018-05-13] MEDS: levETIRAcetam 500 MG Tablet PO SCH ×2 (10:20→22:22)
[2018-05-13] MEDS: Heparin - SQ 10,000 UNITS/ML Vial SQ SCH ×2 (10:22→22:22)
[2018-05-13] MEDS: dilTIAZem 60 MG Tablet PO SCH ×4 (10:24→22:22)
[2018-05-13] MEDS: Potassium Chlor 10 mEq Premix 10 MEQ/100 ML PIGGYBACK IV.SIG SCH ×3 (10:55→13:14)
--- NOTE | 2018-05-13 11:39 | P.CONGI ---
History of Present Illness Consult date: 05/13/18 Consult reason: Persistent loose stools causing JACOBO, hypokalemia. 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 Need colonoscopy Chief complaint: hypomagnesia History of Present Illness: Mr. Chacon is a 78-year-old -[place] male who presented to the emergency room on 05/03/2018 patient's medical history is significant for cocaine use, THC, alcohol abuse, history of TIA, gastroparesis, hypertension, BPH, and prostate cancer status post TURP. Patient does self catheterizations. Patient presented to the emergency room with report of progressive weakness onset 6 months ago. He reports appetite is poor. Patient denies abdominal pain nausea or vomiting but does endorse that he has been having loose stools to watery stools for [address] scan of abdomen and pelvis done on 05/04/2018 reveal the following--Thick walled urinary bladder with a Buchanan catheter. Similar findings were seen on the prior 2 studies.No obstruction or acute inflammatory changes are seen of the gastrointestinal tract. Mildly distended stomach despite presence of nasogastric tube. There is questionable wall thickening, especially greater curvature of the body. This is nonspecific. Chronic hiatal hernia. Cholelithiasis again demonstrated. No associated inflammatory changes are seen. No duct stone or ductal dilatation. Small effusions of the visualized lung bases and mild body wall edema/anasarca. Mild bibasilar atelectasis. Patient denies fever or chills and denies any known close sick contacts or recent travel. Patient denies nausea or vomiting and reports sharp lower quadrant bilateral pain only before each bowel movement. Patient states she has watery bowel movements on average 2 times daily and has never noted any blood or mucus. Patient endorses occasional heartburn for which he takes omeprazole 40 mg daily. Denies any history of ever having had an EGD or colonoscopy. Patient denies any known family history of gastrointestinal disorders or diseases. Patient denies any use of NSAIDs or aspirin. He reports that he does not use tobacco but does drink alcohol 3 beers daily. Discussed need for EGD and colonoscopy at this time with patient who verbalizes understanding and agreement. 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 <Anamika Lutz - Last Filed: 05/13/18 11:40> Review of Systems All other systems reviewed negative except as stated in HPI <Anamika Ltuz - Last Filed: 05/13/18 11:40> PMFSH - History History Provided By: Patient - Medical History Medical History: Medical History (Last Reviewed 05/11/18 @ 08:04 by Denise Villalobos Senior [employer] Developer, DESIGN ENGINEER [employer]) Alcohol use Gastroesophageal reflux disease HTN (hypertension) Hypomagnesemia Osteoarthritis Tetrahydrocannabinol (THC) use disorder, mild, abuse Cocaine abuse in remission Prostate cancer TIA (transient ischemic attack) Urinary retention due to benign prostatic hyperplasia - Surgical History Surgical History: Surgical History (Last Reviewed 05/09/18 @ 11:45 by Tisha Blackwell) H/O cystoscopy History of ERCP History of esophagogastroduodenoscopy (EGD) S/P TURP - Family History Family History: Family History (Last Reviewed 05/07/18 @ 09:39 by Gabriella Hammond MD) Other Family history unknown - Tobacco History Second Hand Smoke Exposure: No Tobacco Use In Past 30 Days: No Smoking Status: Former smoker Tobacco Type: Cigarettes - Alcohol History How Often Do You Have a Drink Containing Alcohol: 4 or more times a week - Substance Use History Substance History: Past History - Substance Use Type Crack/Cocaine Status: Early Remission Route Used: Inhalation Frequency: weekly Reason for Use: Get High - Travel History Recent Travel in the [place] Within the Last 8 Weeks: No Recent Travel Out of the Country Within the Last 8 Weeks: No - Immunization History Tetanus Immunization: Unsure Hx Influenza Vaccine This Season: No <Anamika Lutz - Last Filed: 05/13/18 11:40> - Medical History Medical History: Medical History (Last Reviewed 05/11/18 @ 08:04 by Denise Villalobos Senior [employer] Developer, DESIGN ENGINEER [employer]) Alcohol use Gastroesophageal reflux disease HTN (hypertension) Hypomagnesemia Osteoarthritis Tetrahydrocannabinol (THC) use disorder, mild, abuse Cocaine abuse in remission Prostate cancer TIA (transient ischemic attack) Urinary retention due to benign prostatic hyperplasia - Surgical History Surgical History: Surgical History (Last Reviewed 05/09/18 @ 11:45 by Tisha Blackwell) H/O cystoscopy History of ERCP History of esophagogastroduodenoscopy (EGD) S/P TURP - Family History Family History: Family History (Last Reviewed 05/07/18 @ 09:39 by Gabriella Hammond MD) Other Family history unknown <Lizeth Gamboa - Last Filed: 05/13/18 12:07> Medications and Allergies Active Medications: Active Medications Acetaminophen (Tylenol) 650 mg PO Q6H PRN PRN Reason: Fever >101f Al Hydroxide/Mg Hydroxide (Milk Of Magnsami Liq) 30 ml PO Q12H PRN PRN Reason: Mild Constipation Albuterol (Albuterol Neb (Prn)) 2.5 mg NEB Q2HR NEB PRN PRN Reason: SHORTNESS OF BREATH/WHEEZING Artificial Tears (Refresh Tears 0.5% Opth Drops) 1 drop EACH EYE BID [facility] Last Admin: 05/12/18 21:19 Dose: 1 drop Dextrose (D50w Vial) 50 ml IV.PUSH UNSCH PRN PRN Reason: PER HYPOGLYCEMIA PROTOCOL Diltiazem HCl (Cardizem) 60 mg PO QID [facility] Last Admin: 05/13/18 10:24 Dose: 60 mg Glucagon (Glucagon Inj) 1 mg OTHER PRN PRN PRN Reason: for Hypoglycemia Protocol Heparin Sodium (Porcine) (Heparin Inj) 5,000 units SQ Q12H [facility] Last Admin: 05/13/18 10:22 Dose: 5,000 units Hydralazine HCl (Apresoline) 100 mg PO Q8HR [facility] Last Admin: 05/13/18 07:08 Dose: 100 mg Hydrocortisone Sodium Succinate (Solucortef Inj) 25 mg IV.PUSH Q24H [facility]; Taper Stop: 05/13/18 12:59 Last Admin: 05/12/18 15:03 Dose: 25 mg Ceftriaxone Sodium 2,000 mg/ (Sodium Chloride) 100 mls @ 200 mls/hr IV.SIG Q24H [facility] Stop: 05/13/18 23:00 Last Infusion: 05/12/18 12:00 Dose: Infused Potassium Chloride 30 meq/ (Dextrose/Sodium Chloride) 1,015 mls @ 70 mls/hr IV.CONT .[id number] [facility] Last Admin: 05/13/18 05:15 Dose: 70 mls/hr Potassium Chloride (Kcl 10 Meq Premix Inj) 10 meq in 100 mls @ 100 mls/hr IV.SIG Q1H [facility] Stop: 05/13/18 12:59 Last Admin: 05/13/18 10:55 Dose: 100 mls/hr Insulin Aspart (Novolog Insulin Correctional Sugar Inj) 0 unit SQ ACHS AND 3AM [facility]; Protocol Last Admin: 05/13/18 08:14 Dose: Not Given Levetiracetam (Keppra) 500 mg PO BID [facility] Last Admin: 05/13/18 10:20 Dose: 500 mg Ondansetron HCl (Zofran Inj) 4 mg IV.PUSH Q6H PRN PRN Reason: NAUSEA OR VOMITING Pantoprazole Sodium (Protonix) 40 mg PO DAILY [facility] Last Admin: 05/13/18 10:20 Dose: 40 mg Potassium Chloride (K-Dur) 20 meq PO BID [facility] Last Admin: 05/13/18 10:32 Dose: 20 meq Sodium Chloride (Ns Flush) 2 ml IV.FLUSH BID [facility] Last Admin: 05/13/18 04:56 Dose: Not Given Sodium Chloride (Ns Flush) 2 ml IV.FLUSH PRN PRN PRN Reason: FLUSH AFTER USING IV ACCESS <Anamika Lutz - Last Filed: 05/13/18 11:40> Active Medications: Active Medications Acetaminophen (Tylenol) 650 mg PO Q6H PRN PRN Reason: Fever >101f Al Hydroxide/Mg Hydroxide (Milk Of Magnsami Liq) 30 ml PO Q12H PRN PRN Reason: Mild Constipation Albuterol (Albuterol Neb (Prn)) 2.5 mg NEB Q2HR NEB PRN PRN Reason: SHORTNESS OF BREATH/WHEEZING Artificial Tears (Refresh Tears 0.5% Opth Drops) 1 drop EACH EYE BID [facility] Last Admin: 05/12/18 21:19 Dose: 1 drop Dextrose (D50w Vial) 50 ml IV.PUSH UNSCH PRN PRN Reason: PER HYPOGLYCEMIA PROTOCOL Diltiazem HCl (Cardizem) 60 mg PO QID [facility] Last Admin: 05/13/18 10:24 Dose: 60 mg Fidaxomicin (Dificid) 200 mg PO BID [facility] Glucagon (Glucagon Inj) 1 mg OTHER PRN PRN PRN Reason: for Hypoglycemia Protocol Heparin Sodium (Porcine) (Heparin Inj) 5,000 units SQ Q12H [facility] Last Admin: 05/13/18 10:22 Dose: 5,000 units Hydralazine HCl (Apresoline) 100 mg PO Q8HR [facility] Last Admin: 05/13/18 07:08 Dose: 100 mg Hydrocortisone Sodium Succinate (Solucortef Inj) 25 mg IV.PUSH Q24H [facility]; Taper Stop: 05/13/18 12:59 Last Admin: 05/12/18 15:03 Dose: 25 mg Ceftriaxone Sodium 2,000 mg/ (Sodium Chloride) 100 mls @ 200 mls/hr IV.SIG Q24H [facility] Stop: 05/13/18 23:00 Last Infusion: 05/12/18 12:00 Dose: Infused Potassium Chloride 30 meq/ (Dextrose/Sodium Chloride) 1,015 mls @ 70 mls/hr IV.CONT .[id number] [facility] Last Admin: 05/13/18 05:15 Dose: 70 mls/hr Potassium Chloride (Kcl 10 Meq Premix Inj) 10 meq in 100 mls @ 100 mls/hr IV.SIG Q1H [facility] Stop: 05/13/18 12:59 Last Infusion: 05/13/18 12:04 Dose: Infused Insulin Aspart (Novolog Insulin Correctional Sugar Inj) 0 unit SQ ACHS AND 3AM [facility]; Protocol Last Admin: 05/13/18 08:14 Dose: Not Given Lactobacillus Acidophilus (Lactinex) 1 tab PO TID [facility] Levetiracetam (Keppra) 500 mg PO BID [facility] Last Admin: 05/13/18 10:20 Dose: 500 mg Ondansetron HCl (Zofran Inj) 4 mg IV.PUSH Q6H PRN PRN Reason: NAUSEA OR VOMITING Pantoprazole Sodium (Protonix) 40 mg PO DAILY [facility] Last Admin: 05/13/18 10:20 Dose: 40 mg Potassium Chloride (K-Dur) 20 meq PO BID [facility] Last Admin: 05/13/18 10:32 Dose: 20 meq Sodium Chloride (Ns Flush) 2 ml IV.FLUSH BID [facility] Last Admin: 05/13/18 04:56 Dose: Not Given Sodium Chloride (Ns Flush) 2 ml IV.FLUSH PRN PRN PRN Reason: FLUSH AFTER USING IV ACCESS <Lizeth Gamboa - Last Filed: 05/13/18 12:07> Allergies Allergy/AdvReac Type Severity Reaction Status Date / Time No Known Allergies Allergy Verified 05/03/18 09:59 Home Medications Medication Instructions Recorded Confirmed Type No Known Home Medications 05/03/18 05/03/18 History Exam Vital signs: Vital Signs 05/12/18 12:00 05/12/18 16:00 05/12/18 20:00 Temperature 98.1 F 98.0 F 98.8 F Pulse Rate 97 H 106 H 100 H Respiratory Rate 18 20 18 Blood Pressure 113/58 L 118/71 145/72 H Pulse Oximetry 98 98 96 05/13/18 00:00 05/13/18 04:00 05/13/18 07:56 Temperature 99.2 F 98.5 F 98.5 F Pulse Rate 92 H 88 88 Respiratory Rate 18 18 18 Blood Pressure 124/66 145/68 H 139/72 Pulse Oximetry 96 97 95 Intake & Output 05/12/18 05/13/18 05/13/18 18:59 06:59 18:59 Intake Total 700 / 700 1015 / 1015 Output Total 1750 / 1750 300 / 300 Balance -1050 / -1050 715 / 715 Weight 57.4 kg Intake: IV 100 / 100 1015 / 1015 KCl Inj 30 MEQ In D5W/Normal 1015 / 1015 Saline Inj 1,000 ML @ 70 mls/hr IV.CONT .[id number] [facility] Rx#: [id number] Rocephin Inj 2,000 MG In NS Inj 100 / 100 100 ML @ 200 mls/hr IV.SIG Q24H [facility] Rx#:[id number] Oral 600 / 600 Output: Urine 300 / 300 Stool 500 / 500 Urine Amount (Catheter) 1250 / 1250 Straight 1250 / 1250 Other: # Incontinent Voids 1 Date of Last Bowel Movement 05/12/18 05/12/18 # Bowel Movements 2 # Incontinent Bowel Movements 2 - Constitutional no acute distress - Routine HEENT Exam Head: Present: normocephalic Eye: Absent: conjunctival icterus - Routine Neck Exam Present: supple, full ROM - Routine Respiratory Exam Present: CTA bilaterally - Routine Cardiovascular Exam Present: RRR - Routine Abdominal Exam Present: soft, normoactive bowel sounds. Absent: tenderness, distended, guarding, firm - Routine Extremities Exam Present: full ROM, pulses intact. Absent: clubbing, edema - Routine Skin Exam Present: dry, warm - Routine Neurological Exam Present: alert, oriented X3 <Lutz,Anamika - Last Filed: 05/13/18 11:40> Vital signs: Vital Signs 05/12/18 16:00 05/12/18 20:00 10/07/18 00:00 Temperature 98.0 F 98.8 F 99.2 F Pulse Rate 106 H 100 H 92 H Respiratory Rate 20 18 18 Blood Pressure 118/71 145/72 H 124/66 Pulse Oximetry 98 96 96 05/13/18 04:00 05/13/18 07:56 Temperature 98.5 F 98.5 F Pulse Rate 88 88 Respiratory Rate 18 18 Blood Pressure 145/68 H 139/72 Pulse Oximetry 97 95 Intake & Output 05/12/18 05/13/18 05/13/18 18:59 06:59 18:59 Intake Total 700 / 700 1015 / 1015 100 / 100 Output Total 1750 / 1750 300 / 300 Balance -1050 / -1050 715 / 715 100 / 100 Weight 57.4 kg Intake: IV 100 / 100 1015 / 1015 100 / 100 KCl Inj 30 MEQ In D5W/Normal 1015 / 1015 Saline Inj 1,000 ML @ 70 mls/hr IV.CONT .[id number] [facility] Rx#: [id number] KCl 10 mEq Premix Inj 10 meq In 100 / 100 100 ml @ 100 mls/hr IV.SIG Q1H [facility] Rx#:[id number] Rocephin Inj 2,000 MG In NS Inj 100 / 100 100 ML @ 200 mls/hr IV.SIG Q24H [facility] Rx#:[id number] Oral 600 / 600 Output: Urine 300 / 300 Stool 500 / 500 Urine Amount (Catheter) 1250 / 1250 Straight 1250 / 1250 Other: # Incontinent Voids 1 Date of Last Bowel Movement 05/12/18 05/12/18 # Bowel Movements 2 # Incontinent Bowel Movements 2 <Lizeth Gamboa - Last Filed: 05/13/18 12:07> Results - Labs CBC & Chem 7: 05/10/18 04:03 05/13/18 05:08 Labs: Laboratory Results - last 24 hr 05/12/18 05/13/18 10:52 05:08 Sodium 141 142 Potassium 3.2 L 2.8 L* Chloride 101 105 Carbon Dioxide 29.9 28.5 Anion Gap 10 9 BUN 18 16 Creatinine 1.38 H 1.17 Estimated GFR 61 L 73 L Random Glucose 157 H 78 Calcium 7.9 L 7.7 L <Anamika Lutz - Last Filed: 05/13/18 11:40> - Labs CBC & Chem 7: 05/10/18 04:03 05/13/18 05:08 Labs: Laboratory Results - last 24 hr 05/13/18 05:08 Sodium 142 Potassium 2.8 L* Chloride 105 Carbon Dioxide 28.5 Anion Gap 9 BUN 16 Creatinine 1.17 Estimated GFR 73 L Random Glucose 78 Calcium 7.7 L <Lizeth Gamboa - Last Filed: 05/13/18 12:07> Assessment and Plan (1) Chronic diarrhea Status: Acute Code(s): K52.9 - Noninfective gastroenteritis and colitis, unspecified (2) C. difficile diarrhea Status: Acute Code(s): A04.72 - Enterocolitis due to Clostridium difficile, not specified as recurrent - Plan Mr. Chacon is a 78-year-old -[place] male who presented to the emergency room on 05/03/2018 patient's medical history is significant for cocaine use, THC, alcohol abuse, history of TIA, gastroparesis, hypertension, BPH, and prostate cancer status post TURP. Patient does self catheterizations. Patient presented to the emergency room with report of progressive weakness onset 6 months ago. He reports appetite is poor. Patient denies abdominal pain nausea or vomiting but does endorse that he has been having loose stools to watery stools for [address] scan of abdomen and pelvis done on 05/04/2018 reveal the following--Thick walled urinary bladder with a Buchanan catheter. Similar findings were seen on the prior 2 studies.No obstruction or acute inflammatory changes are seen of the gastrointestinal tract. Mildly distended stomach despite presence of nasogastric tube. There is questionable wall thickening, especially greater curvature of the body. This is nonspecific. Chronic hiatal hernia. Cholelithiasis again demonstrated. No associated inflammatory changes are seen. No duct stone or ductal dilatation. Small effusions of the visualized lung bases and mild body wall edema/anasarca. Mild bibasilar atelectasis. Patient denies fever or chills and denies any known close sick contacts or recent travel. Patient denies nausea or vomiting and reports sharp lower quadrant bilateral pain only before each bowel movement. Patient states she has watery bowel movements on average 2 times daily and has never noted any blood or mucus. Patient endorses occasional heartburn for which he takes omeprazole 40 mg daily. Denies any history of ever having had an EGD or colonoscopy. Patient denies any known family history of gastrointestinal disorders or diseases. Patient denies any use of NSAIDs or aspirin. He reports that he does not use tobacco but does drink alcohol 3 beers daily. Discussed possible need for EGD and colonoscopy at this time with patient who verbalizes understanding and agreement. 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 Plan: Regular diet as tolerated We will repeat stool for C. difficile Dificid 200 mg twice daily Lactinex p.o. 3 times daily Maintain high IV hydration and electrolyte replacement Supportive care Further recommendations to follow based on findings This patient has been seen by myself and Dr. Gamboa and this note is written on his behalf <Anamika Lutz - Last Filed: 05/13/18 11:40> (1) Chronic diarrhea Status: Acute Code(s): K52.9 - Noninfective gastroenteritis and colitis, unspecified (2) C. difficile diarrhea Status: Acute Code(s): A04.72 - Enterocolitis due to Clostridium difficile, not specified as recurrent - Plan Seen and examined with nelson HANSENian. Unclear how much diarrhea he is having. Will add lactinex and dificid 200mg po bid x 10 days. Possible colonoscopy next week. Discussed with Dr Clark. Thank you The exam, history, and the medical decision-making described in the above note were completed with the assistance of the mid-level provider. I reviewed and agree with the findings presented. I attest that I had a [id number] encounter with the patient on the same day, and personally performed and documented my assessment and findings in the medical record. <Lizeth Gamboa - Last Filed: 05/13/18 12:07>
[2018-05-13] MEDS: Lactobacillus Acidophilus/L. Spores Tablet PO SCH ×2 (14:32→18:32)
[2018-05-13] MEDS ORDERED: PEG 3350/E-Lyte Soln 4000 ML Bottle PO ONE (16:00)
[2018-05-13] MEDS ORDERED: Chlorhexidine Gluconate 2% 1 Pack (2 Cloths) TOPICAL ONE (18:41)
[2018-05-13] MEDS ORDERED: Sodium Chlor 0.9% Inj 500 ML IV.SIG SCH (19:00)
[2018-05-14] MEDS: Insulin NovoLOG Aspart Correctional Sugar Inj SQ SCH ×3 (02:25→12:06)
--- NOTE | 2018-05-14 08:39 | P.PN ---
Subjective Interval history: wtill with soft stools- overnight x 2 no complains of abdominal pain, nausea or vomiting no urinary symptoms Physical Exam Vital signs: Vital Signs 05/13/18 12:00 05/13/18 16:00 05/13/18 20:00 Temperature 98 F 98.7 F 99 F Pulse Rate 96 H 97 H 99 H Respiratory Rate 18 18 Blood Pressure 121/72 120/72 116/56 L Pulse Oximetry 98 99 96 05/14/18 00:00 05/14/18 04:00 05/14/18 04:50 Temperature 98.5 F 98.3 F Pulse Rate 92 H 89 Respiratory Rate 18 Blood Pressure 128/62 125/63 Pulse Oximetry 96 96 Intake & Output 05/13/18 05/14/18 05/14/18 18:59 06:59 18:59 Intake Total 540 / 540 1015 / 1015 Output Total 1100 / 1100 915 / 915 Balance -560 / -560 100 / 100 Weight 57.4 kg Intake: IV 300 / 300 1015 / 1015 KCl Inj 30 MEQ In D5W/Normal 1015 / 1015 Saline Inj 1,000 ML @ 70 mls/hr IV.CONT .[id number] [facility] Rx#: [id number] KCl 10 mEq Premix Inj 10 meq In 300 / 300 100 ml @ 100 mls/hr IV.SIG Q1H [facility] Rx#:[id number] Oral 240 / 240 Output: Urine 915 / 915 Urine Amount (Catheter) 1100 / 1100 Straight 1100 / 1100 Other: Date of Last Bowel Movement 05/12/18 05/13/18 # Bowel Movements 1 # Incontinent Bowel Movements 1 Narrative: awake and alert, oriented, x 3 speech clear anicteric neck supple lungs- no rales, no wheezes regular rhythm abdomen- soft, nontender extremities no edema- moves all extremities spontaneously - Urinary Catheter Management Straight Cath placed during this visit: yes, but has since been removed by the nurse Reason for continuing: Hourly intake/output Insertion date: 05/03/18 Insertion time: 18:24 Removal date: 05/03/18 Removal time: 15:14 Indwelling Urethral Catheter Cath placed during this visit: no Reason for continuing: Not indwelling catheter Results - Labs CBC & Chem 7: 05/10/18 04:03 05/13/18 05:08 Laboratory Results - last 24 hr 05/13/18 05/14/18 23:50 07:19 POC Glucose 101 Stl C.difficile DNA Amp Negative St C. diff Tox Epid 027 Negative - Procedures VDRF VENT MANAGEMENT INTUBATION EXTUBATION Assessment and Plan - Plan Patient is a 78-year-old male with a C. difficile toxin colitis and seizures has been extubated. And has now been transferred to our service. 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 Persistent Loose stools/freq BM - po vanco DC 05/11 - Pericolace and dulcolasx and all stools softeners were DC days ago - Monitor BMs - still having frequent BM - appreciate GI consult- planned for colonoscopy JACOBO from persistent diarrhea - started IVF 05/12- cratinine better today - cotninue IVF- ff BMP- creatinine improved with IVF Hypokalemia - from diarrhea K 2.8- 05/13- -BMP this am- pending -IVF with KCL, given IV KCL bolus- 05/13 - increased po KCL to 20mmeq po bid - ff BMP Seizure- no further episode Drug screen (+) cocaine -500 mg bid - keppra Sinus tachycardia improved Hypertension Elevated troponin -on hydralazine and Cardizem and as needed labetalol Status post vent dependent respiratory failure has been extubated- Resolved Had acute hypoxic and hypercarbic respiratory failure which is resolved Continue incentive spirometry - on Hydrocoortisone taper protocol till 05/13 GERD Continue on PPI- po PT and OT- out of bed to chair for all meals speech therapy DC planning- CM consult- needs rehab
[2018-05-14 08:50] LABS: Calcium 7.7 mg/dL (8.5-10.1); Carbon Dioxide 26.5 meq/L (21.0-32.0); Potassium 3.9 meq/L (3.5-5.1)
[2018-05-14] MEDS: dilTIAZem 60 MG Tablet PO SCH ×4 (09:52→20:37)
[2018-05-14] MEDS: levETIRAcetam 500 MG Tablet PO SCH ×2 (09:52→20:38)
[2018-05-14] MEDS: Lactobacillus Acidophilus/L. Spores Tablet PO SCH ×3 (09:52→17:10)
[2018-05-14] MEDS: Heparin - SQ 10,000 UNITS/ML Vial SQ SCH ×2 (09:53→20:38)
[2018-05-14] MEDS: Carboxymethylcellulose 0.5% Opth Drops 15 ML Bottle EACH EYE SCH ×2 (09:54→20:38)
[2018-05-14] MEDS: Potassium Chloride Inj 30 MEQ in Dextrose 5%/NaCl 0.9% Inj 1,000 ML IV.CONT SCH (13:02)
--- NOTE | 2018-05-14 13:28 | P.PNGI ---
Subjective Interval history: Resting comfortably states tolerating diet well. Patient unsure about how many bowel movements he has had since yesterday. Denies abdominal pain or nausea vomiting. <LutzAnamika - Last Filed: 05/14/18 13:17> Physical Exam Vital signs: Vital Signs 05/13/18 16:00 05/13/18 20:00 05/14/18 00:00 Temperature 98.7 F 99 F 98.5 F Pulse Rate 97 H 99 H 92 H Respiratory Rate 18 18 18 Blood Pressure 120/72 116/56 L 128/62 Pulse Oximetry 99 96 96 05/14/18 04:00 05/14/18 04:50 05/14/18 08:00 Temperature 98.3 F 98.5 F Pulse Rate 89 87 Respiratory Rate 18 18 20 Blood Pressure 125/63 127/71 Pulse Oximetry 96 97 05/14/18 12:00 Temperature 97.4 F L Pulse Rate 103 H Respiratory Rate 20 Blood Pressure 148/72 H Pulse Oximetry 97 Intake & Output 05/13/18 05/14/18 05/14/18 18:59 06:59 18:59 Intake Total 540 / 540 1015 / 1015 1255 / 1255 Output Total 1100 / 1100 915 / 915 Balance -560 / -560 100 / 100 1255 / 1255 Weight 57.4 kg Intake: IV 300 / 300 1015 / 1015 1015 / 1015 KCl Inj 30 MEQ In D5W/Normal 1015 / 1015 1015 / 1015 Saline Inj 1,000 ML @ 70 mls/hr IV.CONT .[id number] [facility] Rx#: [id number] KCl 10 mEq Premix Inj 10 meq In 300 / 300 100 ml @ 100 mls/hr IV.SIG Q1H [facility] Rx#:[id number] Oral 240 / 240 240 / 240 Output: Urine 915 / 915 Urine Amount (Catheter) 1100 / 1100 Straight 1100 / 1100 Other: Date of Last Bowel Movement 05/12/18 05/13/18 05/14/18 # Bowel Movements 1 # Incontinent Bowel Movements 1 - Constitutional no acute distress - Routine HEENT Exam Head: Present: normocephalic - Routine Respiratory Exam Present: CTA bilaterally - Routine Cardiovascular Exam Present: RRR - Routine Abdominal Exam Present: soft, normoactive bowel sounds. Absent: tenderness, distended, guarding, firm - Routine Neurological Exam Present: alert, oriented X3 - Detailed Neurological Exam: Coma Scale Eye Opening: Spontaneous - Routine Psychiatric Exam Present: normal affect - Urinary Catheter Management Straight Cath placed during this visit: yes, but has since been removed by the nurse Reason for continuing: Not indwelling catheter Insertion date: 05/14/18 Insertion time: 11:55 Removal date: 05/14/18 Removal time: 15:14 Indwelling Urethral Catheter Cath placed during this visit: no Reason for continuing: Not indwelling catheter <Anamika Lutz - Last Filed: 05/14/18 13:17> Vital signs: Vital Signs 05/13/18 16:00 05/13/18 20:00 05/14/18 00:00 Temperature 98.7 F 99 F 98.5 F Pulse Rate 97 H 99 H 92 H Respiratory Rate 18 18 18 Blood Pressure 120/72 116/56 L 128/62 Pulse Oximetry 99 96 96 05/14/18 04:00 05/14/18 04:50 05/14/18 08:00 Temperature 98.3 F 98.5 F Pulse Rate 89 87 Respiratory Rate 18 18 20 Blood Pressure 125/63 127/71 Pulse Oximetry 96 97 05/14/18 12:00 Temperature 97.4 F L Pulse Rate 103 H Respiratory Rate 20 Blood Pressure 148/72 H Pulse Oximetry 97 Intake & Output 05/13/18 05/14/18 05/14/18 18:59 06:59 18:59 Intake Total 540 / 540 1015 / 1015 1615 / 1615 Output Total 1100 / 1100 915 / 915 Balance -560 / -560 100 / 100 1615 / 1615 Weight 57.4 kg Intake: IV 300 / 300 1015 / 1015 1015 / 1015 KCl Inj 30 MEQ In D5W/Normal 1015 / 1015 1015 / 1015 Saline Inj 1,000 ML @ 70 mls/hr IV.CONT .[id number] [facility] Rx#: [id number] KCl 10 mEq Premix Inj 10 meq In 300 / 300 100 ml @ 100 mls/hr IV.SIG Q1H [facility] Rx#:[id number] Oral 240 / 240 600 / 600 Output: Urine 915 / 915 Urine Amount (Catheter) 1100 / 1100 Straight 1100 / 1100 Other: Date of Last Bowel Movement 05/12/18 05/13/18 05/14/18 # Bowel Movements 1 # Incontinent Bowel Movements 1 - Urinary Catheter Management Straight Cath placed during this visit: no Indwelling Urethral Catheter Cath placed during this visit: no <CooperStanley - Last Filed: 05/14/18 15:48> Results - Labs CBC & Chem 7: 05/10/18 04:03 05/14/18 06:36 Laboratory Results - last 24 hr 05/13/18 05/14/18 05/14/18 23:50 06:36 07:19 Sodium 141 Potassium 3.9 D Chloride 106 Carbon Dioxide 26.5 Anion Gap 9 BUN 13 Creatinine 1.13 Estimated GFR 76 L POC Glucose 101 Random Glucose 83 Calcium 7.7 L Stl C.difficile DNA Amp Negative St C. diff Tox Epid 027 Negative - Procedures VDRF VENT MANAGEMENT INTUBATION EXTUBATION <Anamika Lutz - Last Filed: 05/14/18 13:17> - Labs CBC & Chem 7: 05/10/18 04:03 05/14/18 06:36 Laboratory Results - last 24 hr 05/13/18 05/14/18 05/14/18 23:50 06:36 07:19 Sodium 141 Potassium 3.9 D Chloride 106 Carbon Dioxide 26.5 Anion Gap 9 BUN 13 Creatinine 1.13 Estimated GFR 76 L POC Glucose 101 Random Glucose 83 Calcium 7.7 L Stl C.difficile DNA Amp Negative St C. diff Tox Epid 027 Negative <CooperStanley - Last Filed: 05/14/18 15:48> Assessment and Plan (1) Chronic diarrhea Status: Acute Code(s): K52.9 - Noninfective gastroenteritis and colitis, unspecified (2) C. difficile diarrhea Status: Acute Code(s): A04.72 - Enterocolitis due to Clostridium difficile, not specified as recurrent - Plan Mr. Chacon is a 78-year-old -[place] male who presented to the emergency room on 05/03/2018 patient's medical history is significant for cocaine use, THC, alcohol abuse, history of TIA, gastroparesis, hypertension, BPH, and prostate cancer status post TURP. Patient does self catheterizations. Patient presented to the emergency room with report of progressive weakness onset 6 months ago. He reports appetite is poor. Patient denies abdominal pain nausea or vomiting but does endorse that he has been having loose stools to watery stools for [address] scan of abdomen and pelvis done on 05/04/2018 reveal the following--Thick walled urinary bladder with a Buc[place] catheter. Similar findings were seen on the prior 2 studies.No obstruction or acute inflammatory changes are seen of the gastrointestinal tract. Mildly distended stomach despite presence of nasogastric tube. There is questionable wall thickening, especially greater curvature of the body. This is nonspecific. Chronic hiatal hernia. Cholelithiasis again demonstrated. No associated inflammatory changes are seen. No duct stone or ductal dilatation. Small effusions of the visualized lung bases and mild body wall edema/anasarca. Mild bibasilar atelectasis. Patient denies fever or chills and denies any known close sick contacts or recent travel. Patient denies nausea or vomiting and reports sharp lower quadrant bilateral pain only before each bowel movement. Patient states she has watery bowel movements on average 2 times daily and has never noted any blood or mucus. Patient endorses occasional heartburn for which he takes omeprazole 40 mg daily. Denies any history of ever having had an EGD or colonoscopy. Patient denies any known family history of gastrointestinal disorders or diseases. Patient denies any use of NSAIDs or aspirin. He reports that he does not use tobacco but does drink alcohol 3 beers daily. Discussed possible need for EGD and colonoscopy at this time with patient who verbalizes understanding and agreement. 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 05/14/18 Patient awake alert pleasant denies any abdominal discomfort or nausea and vomiting states he is tolerating diet well. Not clear as to how many bowel movements he has had in the last 24 hours I/O's documentation noted and patient has had one BM today and 2 yesterday. Stool C. difficile toxin negative on 05/13. Plan -Diet as tolerated -Maintain hydration -Lactinex -Dificid -Supportive care -Further recommendations to follow This patient has been seen by myself and Dr. Gamboa and this note is written on his behalf - Attending Attestation Dr. Gamboa <Anamika Lutz - Last Filed: 05/14/18 13:17> (1) Chronic diarrhea Status: Acute Code(s): K52.9 - Noninfective gastroenteritis and colitis, unspecified (2) C. difficile diarrhea Status: Acute Code(s): A04.72 - Enterocolitis due to Clostridium difficile, not specified as recurrent - Plan Seen and examined with DIGGING MACHINE OPERATOR, colonoscopy when agrees to do prep. <Lizeth Gamboa - Last Filed: 05/14/18 15:48>
--- NOTE | 2018-05-14 13:48 | P.PNID ---
Subjective Remarks: Patient is a 78-year-old male, presented to the emergency room complaining of 6- month history of worsening generalized weakness. There is been poor p.o. intake , and there is mention that he was almost homeless. He did not have any abdominal pain, diarrhea, nausea or vomiting patient has previous history of BPH , prostate cancer, status post TURP, and he does self-catheterization. In the ED he had CT of the brain which did not show any acute process. He had electrolyte imbalance. While in the ED he apparently had a witnessed seizure, and post ictal he was quite confused and required intubation. Patient has remained intubated since. He has not been febrile. His urinalysis showed some pyuria. Urine culture is growing Klebsiella. He also started having diarrhea, and stool for C. difficile came back positive. His white count is mildly elevated today to 12,000. Patient currently remains on the vent. He is awake and following commands. His hemodynamics are stable. He is afebrile. He has a rectal bag and has liquid stool. Infectious disease consultation has been requested to assist with evaluation and treatment of his UTI, and C. difficile colitis. Notes reviewed Temps ok Doing well States he has soft stools No abdominal pain No N/V C diff PCR (+), Ag (+) C diff toxin negative BP ok WBC better UC Klebsiella Antibiotics: Rocephin PO Vanco Past Medical History: Alcohol use Gastroesophageal reflux disease HTN (hypertension) Hypomagnesemia Osteoarthritis Tetrahydrocannabinol (THC) use disorder, mild, abuse Cocaine abuse in remission Prostate cancer TIA (transient ischemic attack) Urinary retention due to benign prostatic hyperplasia H/O cystoscopy History of ERCP History of esophagogastroduodenoscopy (EGD) S/P TURP Allergies/Adverse Reactions: Allergies No Known Allergies Allergy (Verified 05/03/18 09:59) Objective Vital Signs 05/13/18 16:00 05/13/18 20:00 05/14/18 00:00 Temperature 98.7 F 99 F 98.5 F Pulse Rate 97 H 99 H 92 H Respiratory Rate 18 18 18 Blood Pressure 120/72 116/56 L 128/62 Pulse Oximetry 99 96 96 05/14/18 04:00 05/14/18 04:50 05/14/18 08:00 Temperature 98.3 F 98.5 F Pulse Rate 89 87 Respiratory Rate 18 18 20 Blood Pressure 125/63 127/71 Pulse Oximetry 96 97 05/14/18 12:00 Temperature 97.4 F L Pulse Rate 103 H Respiratory Rate 20 Blood Pressure 148/72 H Pulse Oximetry 97 Intake & Output 05/13/18 05/14/18 05/14/18 18:59 06:59 18:59 Intake Total 540 / 540 1015 / 1015 1255 / 1255 Output Total 1100 / 1100 915 / 915 Balance -560 / -560 100 / 100 1255 / 1255 Weight 57.4 kg Intake: IV 300 / 300 1015 / 1015 1015 / 1015 KCl Inj 30 MEQ In D5W/Normal 1015 / 1015 1015 / 1015 Saline Inj 1,000 ML @ 70 mls/hr IV.CONT .[id number] [facility] Rx#: [id number] KCl 10 mEq Premix Inj 10 meq In 300 / 300 100 ml @ 100 mls/hr IV.SIG Q1H [facility] Rx#:[id number] Oral 240 / 240 240 / 240 Output: Urine 915 / 915 Urine Amount (Catheter) 1100 / 1100 Straight 1100 / 1100 Other: Date of Last Bowel Movement 05/12/18 05/13/18 05/14/18 # Bowel Movements 1 # Incontinent Bowel Movements 1 Lab - Chemistry Results 05/13/18 05/14/18 05/14/18 05:08 06:36 07:19 Sodium 142 141 Potassium 2.8 L* 3.9 D Chloride 105 106 Carbon Dioxide 28.5 26.5 Anion Gap 9 9 BUN 16 13 Creatinine 1.17 1.13 Estimated GFR 73 L 76 L POC Glucose 101 Random Glucose 78 83 Calcium 7.7 L 7.7 L Imaging: ITS Impressions Cervical Spine CT 05/03/18 12:37 CONCLUSION: 1. 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 2. No acute cervical spine fracture identified. Head CT 05/03/18 12:37 CONCLUSION: 1. Microvascular ischemic demyelinative change. No acute intracranial abnormality identified. . Abdomen/Pelvis CT 05/04/18 00:00 CONCLUSION: 1. Thick walled urinary bladder with a Buchanan catheter. Similar findings were seen on the prior 2 studies. 2. No obstruction or acute inflammatory changes are seen of the gastrointestinal tract. 3. Mildly distended stomach despite presence of nasogastric tube. There is questionable wall thickening, especially greater curvature of the body. This is nonspecific. Chronic hiatal hernia. 4. Cholelithiasis again demonstrated. No associated inflammatory changes are seen. No duct stone or ductal dilatation. 5. Small effusions of the visualized lung bases and mild body wall edema/ anasarca. 6. Mild bibasilar atelectasis. Head MRI 05/04/18 00:00 CONCLUSION: 1. Moderate to severe chronic white matter ischemic changes. No recent infarct. 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 2. Sinus mucosal thickening. Chest X-Ray 05/07/18 07:16 CONCLUSION: Support apparatus in good position. Minimal bibasilar parenchymal changes. Physical Exam: GENERAL: awake and alert, following commands, NAD. SKIN: Cool and dry. No generalized rashs. HEAD: Atraumatic. Normocephalic. No temporal wasting, or tenderness. EYES: [place] conjunctiva. No petechia or hemorrhage. Pupils equal, round and reactive to light. No scleral icterus. No injection or drainage. EARS, NOSE AND THROAT: Nose without bleeding or purulent nasal discharge. Mucous membranes pink and moist. Poor dentition. NECK: Trachea midline. Supple and not tender, no meningeal signs CARDIOVASCULAR: Regular rate and rhythm. No murmurs, rubs or gallops heard RESPIRATORY: Coarse breath sounds bilaterally, decreased at the bases. ABDOMEN: Soft, flat, non-tender, nondistended. Bowel sounds present and normoactive. No guarding. No rebound. No organomegaly. EXTREMITIES: No clubbing, cyanosis, or edema. No calf tenderness. NEUROLOGICAL: Awake and following some commands. 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
[2018-05-14] MEDS ORDERED: PEG 3350/E-Lyte Soln 4000 ML Bottle PO ONE (16:00)
[2018-05-15] MEDS: Potassium Chloride Inj 30 MEQ in Dextrose 5%/NaCl 0.9% Inj 1,000 ML IV.CONT SCH (04:18)
[2018-05-15] MEDS: Lactobacillus Acidophilus/L. Spores Tablet PO SCH ×3 (08:35→17:18)
[2018-05-15] MEDS: Heparin - SQ 10,000 UNITS/ML Vial SQ SCH ×2 (08:35→20:40)
--- NOTE | 2018-05-15 08:46 | P.PN ---
Subjective Interval history: awake and alert, no nausea or vomiting, no abdominal bullock states still having loose stools patient did received Prep - golytely for possible scope today is NPO Physical Exam Vital signs: Vital Signs 05/14/18 12:00 05/14/18 16:00 05/14/18 20:00 Temperature 97.4 F L 97.9 F 98.4 F Pulse Rate 103 H 93 H 74 Respiratory Rate 20 20 20 Blood Pressure 148/72 H 122/68 124/78 Pulse Oximetry 97 99 96 05/15/18 00:00 05/15/18 03:13 05/15/18 04:00 Temperature 98.9 F 98.4 F Pulse Rate 92 H 88 Respiratory Rate 18 18 18 Blood Pressure 121/66 128/58 L Pulse Oximetry 98 98 05/15/18 07:00 05/15/18 08:00 Temperature 98.8 F Pulse Rate 93 H Respiratory Rate 12 20 Blood Pressure 144/68 H Pulse Oximetry 98 Intake & Output 05/14/18 05/15/18 05/15/18 18:59 06:59 18:59 Intake Total 1615 / 1615 1015 / 1015 Output Total 1250 / 1250 1150 / 1150 Balance 1615 / 1615 -235 / -235 -1150 / -1150 Weight 56.8 kg Intake: IV 1015 / 1015 1015 / 1015 KCl Inj 30 MEQ In D5W/Normal 1015 / 1015 1015 / 1015 Saline Inj 1,000 ML @ 70 mls/hr IV.CONT .[id number] [facility] Rx#: [id number] Oral 600 / 600 Output: Urine 1250 / 1250 1150 / 1150 Other: # Voids 2 Date of Last Bowel Movement 05/14/18 05/14/18 # Incontinent Bowel Movements 1 Narrative: awake and alert, oriented, x 3 speech clear anicteric neck supple lungs- no rales, no wheezes regular rhythm abdomen- soft, nontender, good bowel sounds extremities no edema- moves all extremities spontaneously - Urinary Catheter Management Straight Cath placed during this visit: yes, but has since been removed by the nurse Reason for continuing: Not indwelling catheter Insertion date: 05/15/18 Insertion time: 06:00 Removal date: 05/15/18 Removal time: 00:05 Indwelling Urethral Catheter Cath placed during this visit: no Reason for continuing: Not indwelling catheter Results - Labs CBC & Chem 7: 05/10/18 04:03 05/16/18 04:28 Laboratory Results - last 24 hr 05/14/18 06:36 Sodium 141 Potassium 3.9 D Chloride 106 Carbon Dioxide 26.5 Anion Gap 9 BUN 13 Creatinine 1.13 Estimated GFR 76 L Random Glucose 83 Calcium 7.7 L - Procedures VDRF VENT MANAGEMENT INTUBATION EXTUBATION Assessment and Plan - Plan Patient is a 78-year-old male with a C. difficile toxin colitis and seizures has been extubated. And has now been transferred to our service. 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 on Dificid- stop date 05/23 - Pericolace and dulcolasx and all stools softeners were DC days ago - Monitor BMs - still having frequent BM - appreciate GI consult- planned for colonoscopy- hopefully today JACOBO from persistent diarrhea- creatinine improved - started IVF 05/12-creatinine improved - ff BMP- Hypokalemia - from diarrhea K 2.8- 05/13- Improved -given IV KCL bolus- 05/13 - KCL to 20mmeq po bid - ff BMP Seizure- no further episode Drug screen (+) cocaine -500 mg bid - keppra Sinus tachycardia improved Hypertension Elevated troponin -on hydralazine and Cardizem and as needed labetalol Status post vent dependent respiratory failure has been extubated- Resolved Had acute hypoxic and hypercarbic respiratory failure which is resolved Continue incentive spirometry - on Hydrocoortisone taper protocol till 05/13 GERD Continue on PPI- po PT and OT- out of bed to chair for all meals speech therapy DC planning- - hoepfully tomorrow if scope unremarkable CM consult- needs rehab- possibly [facility] if accepted
[2018-05-15] MEDS: dilTIAZem 60 MG Tablet PO SCH ×4 (09:05→20:40)
[2018-05-15] MEDS: levETIRAcetam 500 MG Tablet PO SCH ×2 (09:05→20:40)
[2018-05-15] MEDS: Carboxymethylcellulose 0.5% Opth Drops 15 ML Bottle EACH EYE SCH ×2 (09:06→20:41)
[2018-05-15 10:09] LABS: DS DNA Ab (Crithidia) 1
[2018-05-15 10:55] LABS: Calcium 8.3 mg/dL (8.5-10.1); Potassium 4.8 meq/L (3.5-5.1)
[2018-05-15] MEDS ORDERED: Phenylephrine/NS 1000 MCG/10ML Syringe IV.PUSH ONE (14:19)
[2018-05-15] MEDS ORDERED: Lidocaine PF 1% Inj 5 ML Syringe OTHER ONE (14:19)
--- NOTE | 2018-05-15 14:35 | GIPROC ---
[facility] [address] [facility], [address] EGD PROCEDURE REPORT EXAM DATE: 05/15/2018 PATIENT NAME: Kwauk Chacon MR #: [id number] BIRTHDATE: 1940 ATTENDING: Lizeth Gamboa MD ORDER #: [id number] SLUDGE MILL OPERATOR: Lovely Cohn RN STATUS: inpatient INDICATIONS: The patient is a 78 yr old male here for an EGD due to dyspepsia and weight loss PROCEDURE PERFORMED: EGD, diagnostic MEDICATIONS: None and Per Anesthesia. TOPICAL ANESTHETIC: CONSENT: The patient understands the risks and benefits of the procedure and understands that these risks include, but are not limited to: sedation, allergic reaction, infection, perforation and/or bleeding. Alternative means of evaluation and treatment include, among others: physical exam, x-rays, and/or surgical intervention. The patient elects to proceed with this endoscopic procedure. medical equipment was checked for proper function. Hand hygiene and appropriate measures for infection prevention was taken. After the risks, benefits and alternatives of the procedure were thoroughly explained, Informed consent was verified, confirmed and timeout was successfully executed by the treatment team. The patient was anesthetized with topical anesthesia and the [id number] (Pedi C) endoscope was introduced through the mouth and advanced to the second portion of the duodenum. Retroflexed views revealed no abnormalities The gastroscope was then slowly withdrawn and removed. ESOPHAGUS: There was LA Class A esophagitis noted. STOMACH: There was mild gastritis in the gastric antrum. Moderate portal hypertensive gastropathy was found in the gastric body. DUODENUM: The duodenal mucosa appeared normal in the bulb and second portion of the duodenum. ADVERSE EVENTS: There were no complications. IMPRESSIONS: 1. There was LA Class A esophagitis noted 2. There was mild gastritis in the gastric antrum 3. Portal hypertensive gastropathy was found in the gastric body 4. Normal duodenal mucosa in the bulb and second portion of the duodenum 5. Retroflexed views revealed no abnormalities RECOMMENDATIONS: 1. Anti-reflux regimen 2. Continue PPI PATIENT CONDITION: stable DISPOSITION: Inpatient REPEAT EXAM: Return 1 year EGD Lizeth Gamboa MD eSigned: Lizeth Gamboa MD 05/15/2018 2:35 PM cc: PATIENT NAME: Kwaku Chacon MR#: [id number]
[2018-05-16 05:02] LABS: Calcium 7.9 mg/dL (8.5-10.1); Carbon Dioxide 25.7 meq/L (21.0-32.0); Potassium 4.5 meq/L (3.5-5.1)
[2018-05-16] MEDS: Heparin - SQ 10,000 UNITS/ML Vial SQ SCH ×3 (08:54→22:24)
[2018-05-16] MEDS: dilTIAZem 60 MG Tablet PO SCH ×5 (08:55→22:26)
[2018-05-16] MEDS: levETIRAcetam 500 MG Tablet PO SCH ×2 (08:55→22:26)
[2018-05-16] MEDS: Lactobacillus Acidophilus/L. Spores Tablet PO SCH ×3 (08:55→17:01)
[2018-05-16] MEDS: Carboxymethylcellulose 0.5% Opth Drops 15 ML Bottle EACH EYE SCH ×2 (08:56→22:27)
--- NOTE | 2018-05-16 09:28 | P.PN ---
Subjective Interval history: Follow-up visit C. difficile colitis, seizures, BPH, GERD. Patient seen and examined today. Reports he is doing well. States that diarrhea continues about twice a day improved compared to previous days. Denies pain and discomfort. Denies SOB/ dyspnea. Denies chest pain. Denies fevers. Denies nausea, vomiting. Physical Exam Vital signs: Vital Signs 05/15/18 12:00 05/15/18 16:00 05/15/18 20:00 Temperature 98.7 F 98.2 F 98.1 F Pulse Rate 99 H 89 107 H Respiratory Rate 18 Blood Pressure 131/69 173/88 H 144/67 H Pulse Oximetry 98 94 L 93 L 05/16/18 00:00 05/16/18 03:01 05/16/18 04:00 Temperature 99.7 F H 98.9 F Pulse Rate 101 H 101 H Respiratory Rate 18 18 Blood Pressure 128/69 125/64 Pulse Oximetry 98 98 Intake & Output 05/15/18 05/16/18 05/16/18 18:59 06:59 18:59 Intake Total 540 / 540 Output Total 3352 / 3352 975 / 975 900 / 900 Balance -2812 / -2812 -975 / -975 -900 / -900 Weight 55.1 kg Intake: Oral 240 / 240 Anesthesia Amount 300 / 300 Output: Urine 1152 / 1152 Urine Amount (Catheter) 2200 / 2200 975 / 975 900 / 900 Straight 2200 / 2200 975 / 975 900 / 900 Other: # Voids 0 Date of Last Bowel Movement 05/15/18 05/15/18 Narrative: GENERAL: This is an AA thin appearing, well-developed patient, in no apparent distress. SKIN: Warm and dry. HEENT: Normocephalic. Pupils equal round and reactive. Nose without bleeding. Airway patent. NECK: Trachea midline. CARDIOVASCULAR: Regular rate and rhythm without murmurs, gallops, or rubs. RESPIRATORY: No wheezes, rales, or rhonchi. GASTROINTESTINAL: Abdomen soft, non-tender, nondistended. Bowel Sounds normoactive x4. MUSCULOSKELETAL: Extremities without clubbing, cyanosis, or edema. NEUROLOGICAL: Awake and alert. No focal neuro deficit. Moves all extremities. Normal speech. - Urinary Catheter Management Straight Cath placed during this visit: yes, but has since been removed by the nurse Reason for continuing: Not indwelling catheter Insertion date: 05/15/18 Insertion time: 06:00 Removal date: 05/15/18 Removal time: 00:05 Indwelling Urethral Catheter Cath placed during this visit: no Reason for continuing: Not indwelling catheter Results - Labs CBC & Chem 7: 05/10/18 04:03 05/16/18 04:28 Laboratory Results - last 24 hr 05/06/18 05/15/18 05/16/18 11:33 09:29 04:28 Sodium 140 140 Potassium 4.8 D 4.5 Chloride 106 105 Carbon Dioxide 27.0 25.7 Anion Gap 7 9 BUN 7 8 Creatinine 1.14 1.16 Estimated GFR 76 L 74 L Random Glucose 92 85 Calcium 8.3 L 7.9 L Sm (Soto) Antibody <1.0 neg SM/[employer] Antibody <1.0 neg Scl-70 Antibody <1.0 neg Anti-ds DNA (Crithidia) 1 Ribosomal P Prot Ab <1.0 neg - Procedures VDRF VENT MANAGEMENT INTUBATION EXTUBATION EGD 05/15/18 Assessment and Plan - Plan Patient is a 78-year-old male with a C. difficile toxin colitis and seizures has been extubated. And has now been transferred to our service. 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 Normal duodenal mucosa no other abnormalities. Continue PPI. Return EGD in 1 year -Continue Lactinex JACOBO from persistent diarrhea- creatinine improved -started IVF 10/6-creatinine improved -ff BMP- Hypokalemia - from diarrhea K 2.8- 05/13- Improved -IV Potassium replacement -KCL to 20mmeq po bid -Potassium within normal Seizure- no further episode Drug screen (+) cocaine -Keppra 500 mg bid Sinus tachycardia improved Hypertension Elevated troponin -on hydralazine and Cardizem and as needed labetalol Status post vent dependent respiratory failure has been extubated- Resolved Had acute hypoxic and hypercarbic respiratory failure which is resolved Continue incentive spirometry -on Hydrocortisone taper completed 05/13 GERD Gastritis, esophagitis - S/P EGD -Continue on PPI- po DVT prop Heparin Code Status: Full Code Discussed Condition With: Patient, nursing Discharge Planning: Plan for SNF discharge. Will coordinate with CM.
--- NOTE | 2018-05-17 08:52 | P.PN ---
Subjective Interval history: Follow-up visit C. difficile colitis, seizures, BPH, GERD. Patient seen and examined today. Reports he is doing well. States diarrhea has improved. Continues to be weak. Denies pain and discomfort. Denies SOB/ dyspnea. Denies chest pain. Denies fevers. Denies nausea, vomiting. Physical Exam Vital signs: Vital Signs 05/16/18 12:00 05/16/18 16:00 05/16/18 20:00 Temperature 97.7 F 98.2 F 97.8 F Pulse Rate 99 H 104 H 101 H Respiratory Rate 14 14 18 Blood Pressure 97/55 L 95/71 L 117/58 L Pulse Oximetry 99 98 99 05/17/18 00:00 05/17/18 04:00 Temperature 97.9 F 98.1 F Pulse Rate 98 H 90 Respiratory Rate 18 20 Blood Pressure 115/63 120/60 Pulse Oximetry 97 98 Intake & Output 05/16/18 05/17/18 05/17/18 18:59 06:59 18:59 Intake Total 720 / 720 480 / 480 Output Total 1600 / 1600 1400 / 1400 Balance -880 / -880 -920 / -920 Weight 55 kg Intake: Oral 720 / 720 480 / 480 Output: Urine 700 / 700 Urine Amount (Catheter) 1600 / 1600 700 / 700 Straight 1600 / 1600 700 / 700 Other: Date of Last Bowel Movement 05/15/18 05/15/18 Narrative: GENERAL: This is an AA thin appearing, well-developed patient, in no apparent distress. SKIN: Warm and dry. HEENT: Normocephalic. Pupils equal round and reactive. Nose without bleeding. Airway patent. NECK: Trachea midline. CARDIOVASCULAR: Regular rate and rhythm without murmurs, gallops, or rubs. RESPIRATORY: No wheezes, rales, or rhonchi. GASTROINTESTINAL: Abdomen soft, non-tender, nondistended. Bowel Sounds normoactive x4. MUSCULOSKELETAL: Extremities without clubbing, cyanosis, or edema. NEUROLOGICAL: Awake and alert. No focal neuro deficit. Moves all extremities. Normal speech. - Urinary Catheter Management Straight Cath placed during this visit: yes, but has since been removed by the nurse Reason for continuing: Chronic Urinary Retention Insertion date: 05/17/18 Insertion time: 06:31 Removal date: 05/15/18 Removal time: 00:05 Indwelling Urethral Catheter Cath placed during this visit: no Reason for continuing: Chronic Urinary Retention Results - Labs CBC & Chem 7: 05/10/18 04:03 05/16/18 04:28 - Procedures VDRF VENT MANAGEMENT INTUBATION EXTUBATION EGD 05/15/18 Assessment and Plan - Plan Patient is a 78-year-old male with a C. difficile toxin colitis and seizures has been extubated. And has now been transferred to our service. 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 Normal duodenal mucosa no other abnormalities. Continue PPI. Return EGD in 1 year -Continue Lactinex GERD Gastritis, esophagitis - S/P EGD -Continue on PPI Hypertension Elevated troponin Sinus tachycardia improved -on hydralazine and Cardizem and as needed labetalol -Continue to monitor Patient has debility, possibly secondary to prolonged hospitalization -Physical therapy evaluated and treated patient. Recommending SNF -Plan to discharge to SNF for strength training. CM following Seizure -Positive cocaine drug screen -Keppra 500 mg twice daily Resolved issues during hospitalization: During hospitalization patient developed acute kidney injury possibly secondary to persistent diarrhea. He has received IV fluids. Current creatinine has improved. Patient also has electrolyte imbalance including hypokalemia secondary to diarrhea. Potassium supplements have been given. Current potassium level within normal. Patient also noted to have sinus tachycardia possibly secondary to dehydration from diarrhea he has been given hydralazine, Cardizem, IV fluids which significantly improve the sinus tachycardia. He will continue to be treated with medications for his hypertension. Patient's hospitalization was also complicated with respiratory failure were and patient was on the ventilator intubated, he was extubated. He completed his hydrocortisone taper 05/13. DVT prop Heparin Code Status: Full code Discussed Condition With: Patient, nursing Discharge Planning: Plan for SNF discharge. Will coordinate with CM.
[2018-05-17] MEDS: levETIRAcetam 500 MG Tablet PO SCH ×2 (10:18→21:17)
[2018-05-17] MEDS: dilTIAZem CD 240 MG Capsule PO SCH (10:18)
[2018-05-17] MEDS: Lactobacillus Acidophilus/L. Spores Tablet PO SCH ×3 (10:18→17:59)
[2018-05-17] MEDS: Heparin - SQ 10,000 UNITS/ML Vial SQ SCH ×2 (10:18→21:17)
[2018-05-17] MEDS: Carboxymethylcellulose 0.5% Opth Drops 15 ML Bottle EACH EYE SCH ×2 (10:19→21:18)
[2018-05-17 20:37] LABS: Hematocrit 33.4 % (39.0-51.0); Hemoglobin 10.7 gm/dL (13.0-17.0); Mean Corpuscular HGB Conc 32.1 % (32.0-36.0); Mean Corpuscular Hemoglobin 30.7 pg (27.0-34.0); Mean Corpuscular Volume 95.6 fL (80.0-100.0); Mean Platelet Volume 8.8 fL (7.0-11.0); Platelet Count 254 th/mm3 (150-450); Red Cell Distribution Width 15.3 % (11.6-17.2); White Blood Count 7.3 th/mm3 (4.0-11.0)
[2018-05-18] MEDS: Carboxymethylcellulose 0.5% Opth Drops 15 ML Bottle EACH EYE SCH ×2 (09:00→20:25)
[2018-05-18 09:19] LABS: Calcium 7.9 mg/dL (8.5-10.1); Carbon Dioxide 24.6 meq/L (21.0-32.0); Magnesium 1.1 mg/dL (1.5-2.5); Potassium 4.2 meq/L (3.5-5.1)
[2018-05-18 09:20] LABS: Baso # (Auto) 0.1 th/mm3 (0.0-0.2); Baso % (Auto) 1.2 % (0.0-2.0); Eos # (Auto) 0.1 th/mm3 (0.0-0.4); Hemoglobin 10.9 gm/dL (13.0-17.0); Lymph # (Auto) 1.6 th/mm3 (1.0-4.8); Mean Corpuscular HGB Conc 34.1 % (32.0-36.0); Mean Corpuscular Hemoglobin 31.6 pg (27.0-34.0); Mean Corpuscular Volume 92.9 fL (80.0-100.0); Mean Platelet Volume 7.8 fL (7.0-11.0); Mono # (Auto) 0.6 th/mm3 (0.0-0.9); Mono % (Auto) 9.2 % (0.0-8.0); Neut # (Auto) 3.8 th/mm3 (1.8-7.7); Neut % (Auto) 61.6 % (16.0-70.0); Platelet Count 343 th/mm3 (150-450); Red Blood Count 3.44 mil/mm3 (4.50-5.90); Red Cell Distribution Width 15.2 % (11.6-17.2); White Blood Count 6.2 th/mm3 (4.0-11.0)
--- NOTE | 2018-05-18 09:36 | P.DS ---
Date of admission: 05/03/18 18:37 Primary care physician: Marce Comer MD Attending physician on discharge: Donis Lopez Anticipated date of discharge: 05/19/18 Brief History from admission: This is a 78-year-old -Thai male. Date of admission 05/03/2018. Past medical history includes history of cocaine, THC, alcohol abuse, history of TIA, gastroparesis, hypertension, BPH, prostate cancer status post TURP. Patient self caths. History of hypomagnesia. [id number] of hypertension presents to the emergency department for evaluation of weakness for 6 months. He says that he was in this emergency department approximately 6 months ago and since then, he has felt weak. He says that he has had poor oral intake and is 'almost homeless'. Reported no abdominal symptoms including diarrhea, nausea or vomiting per Patient had a essentially negative CT of the brain. When laboratories returned , was noted to have a magnesium 0.4. Potassium 3.1. Calcium 7.4. Elevated ammonia level. Patient received potassium. When the patient about received magnesium, patient had a witnessed seizure. Fell in the form struck it. Became more acutely confused required intubation. Repeat brain CT revealed no acute findings. EKG revealed no prolonged QTc interval. Currently receiving 4 g mag sulfate IV x1 now. Central has been placed to help axis. CT abdomen/ pelvis and MRI brain pending. Patient update on day of discharge: Follow-up visit C. difficile colitis, seizures, BPH, GERD. Patient seen and examined today. Reports he is doing better. States diarrhea has improved, consistency of BM is "mashed potato." As per nursing last night he was reported to have bloody bowel movement, blood in the stool. On review of his colonoscopy patient had external hemorrhoids. Patient states that he did not feel that there was blood coming out of him yesterday but he does not know. Otherwise he denies any dizziness, headaches, fevers, chills. Denies any pain or discomfort. Denies any chest pain, palpitations. Denies any dysuria. Concerned about his self-catheterization in the unit. Discussed with patient that rehab will facilitate and take care of it. DS: Diagnosis - Discharge Diagnosis (1) Altered mental status Status: Acute (2) C. difficile diarrhea Status: Acute DS: Medications - Discharge Medications Prescriptions: acidophilus-sporogenes [Acidophilus Ex Str (L. sporog)] 1 tab PO TID #30 tab hydralazine 100 mg PO Q8HR #90 tab levetiracetam [Keppra] 500 mg PO BID #60 tab pantoprazole 40 mg PO DAILY #30 tab potassium chloride 20 meq PO BID #30 tab DS: Summary Hospital Course: Patient is a 78-year-old male with a C. difficile toxin colitis and seizures has been extubated. Patient was admitted with toxic encephalopathy secondary to medication use. He also has possible seizure secondary to hypomagnesemia and electrolyte imbalance caused by alcohol abuse. Patient also has history of cocaine, THC, and alcohol abuse. 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 Patient was started on Keppra. Patient's hospitalization was complicated with urinary tract infection, Klebsiella. Patient status post Rocephin. He has a history of BPH, prostate cancer status post TURP in 2005. Patient does self catheterization at home. 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 He has persistent loose stools. He is status post EGD by the GI doctors. 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 Normal duodenal mucosa no other abnormalities. Continue PPI. Return EGD in 1 year. 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 Pedunculated polyp found in the sigmoid colon, polypectomy was also performed. Retroflexed views revealed internal hemorrhoids , retroflex also revealed medium internal hemorrhoids, external hemorrhoids was also seen. Needs yearly Hemoccult, recommends to return for colonoscopy in a year. Biopsy was pending.During hospitalization patient developed acute kidney injury possibly secondary to persistent diarrhea. He has received IV fluids. Current creatinine has improved. Patient also has electrolyte imbalance including hypokalemia secondary to diarrhea. Potassium supplements have been given. Current potassium level within normal. Patient also noted to have sinus tachycardia possibly secondary to dehydration from diarrhea he has been given hydralazine, Cardizem, IV fluids which significantly improve the sinus tachycardia. He will continue to be treated with medications for his hypertension. Magnesium is low. Will administer 4 g. He will be on magnesium twice daily. Risk for increased diarrhea. Currently stools are soft and formed. Continue with PPI. Patient has debility, possibly secondary to prolonged hospitalization. He will need continued physical therapy. Patient will be transferred to [place] for comprehensive rehabilitation. Patient has met maximal benefits of hospitalization. Clinically stable for discharge to [place] tomorrow. Magnesium replacement today. - Time Spent with Patient Total time spent providing and/or coordinating discharge services: Greater than 30 minutes - Quality: VTE Deep Vein Thrombosis/Pulmonary Embolism Present on Admission: No Exam Vital signs: Vital Signs 05/17/18 12:00 05/17/18 16:00 05/17/18 20:00 Temperature 97.5 F L 98 F 97.8 F Pulse Rate 96 H 90 81 Respiratory Rate 20 20 20 Blood Pressure 118/55 L 113/56 L 118/58 L Pulse Oximetry 99 98 97 05/18/18 00:00 05/18/18 04:00 Temperature 98.3 F 98.3 F Pulse Rate 79 83 Respiratory Rate 20 20 Blood Pressure 107/58 L 111/63 Pulse Oximetry 98 99 Intake & Output 05/17/18 05/18/18 05/18/18 18:59 06:59 18:59 Intake Total 980 / 980 600 / 600 Output Total 700 / 700 500 / 500 Balance 280 / 280 100 / 100 Weight 54.3 kg Intake: Oral 980 / 980 600 / 600 Output: Urine Amount (Catheter) 700 / 700 500 / 500 Straight 700 / 700 500 / 500 Other: Date of Last Bowel Movement 05/17/18 05/17/18 # Bowel Movements 1 Narrative: GENERAL: This is an AA thin appearing, well-developed patient, in no apparent distress. SKIN: Warm and dry. HEENT: Normocephalic. Pupils equal round and reactive. Nose without bleeding. Airway patent. NECK: Trachea midline. CARDIOVASCULAR: Regular rate and rhythm without murmurs, gallops, or rubs. RESPIRATORY: No wheezes, rales, or rhonchi. GASTROINTESTINAL: Abdomen soft, non-tender, nondistended. Bowel Sounds normoactive x4. MUSCULOSKELETAL: Extremities without clubbing, cyanosis, or edema. NEUROLOGICAL: Awake and alert. No focal neuro deficit. Moves all extremities. Normal speech. Results Procedures completed during hospitalization: VDRF VENT MANAGEMENT INTUBATION EXTUBATION EGD 05/15/18 Completed studies during hospitalization: Pending at discharge 05/15/18 07:30 Surgical [PTH] Routine Labs on day of discharge: Labs from last 24 hours 05/18/18 05/18/18 05/17/18 07:05 07:05 20:25 WBC 6.2 7.3 RBC 3.44 L 3.50 L Hgb 10.9 L 10.7 L Hct 32.0 L 33.4 L MCV 92.9 95.6 MCH 31.6 30.7 MCHC 34.1 32.1 RDW 15.2 15.3 Plt Count 343 D 254 MPV 7.8 8.8 Neut % (Auto) 61.6 Lymph % (Auto) 26.0 Steele % (Auto) 9.2 H Eos % (Auto) 2.0 Baso % (Auto) 1.2 Neut # (Auto) 3.8 Lymph # (Auto) 1.6 Steele # (Auto) 0.6 Eos # (Auto) 0.1 Baso # (Auto) 0.1 WBC Differential . Differential Comment Auto diff final Sodium 139 Potassium 4.2 Chloride 106 Carbon Dioxide 24.6 Anion Gap 8 BUN 17 Creatinine 1.22 Estimated GFR 70 L Random Glucose 75 Calcium 7.9 L Magnesium 1.1 L - Impressions ITS Impressions Cervical Spine CT 05/03/18 12:37 CONCLUSION: 1. 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 2. No acute cervical spine fracture identified. Head CT 05/03/18 12:37 CONCLUSION: 1. Microvascular ischemic demyelinative change. No acute intracranial abnormality identified. . Abdomen/Pelvis CT 05/04/18 00:00 CONCLUSION: 1. Thick walled urinary bladder with a Buchanan catheter. Similar findings were seen on the prior 2 studies. 2. No obstruction or acute inflammatory changes are seen of the gastrointestinal tract. 3. Mildly distended stomach despite presence of nasogastric tube. There is questionable wall thickening, especially greater curvature of the body. This is nonspecific. Chronic hiatal hernia. 4. Cholelithiasis again demonstrated. No associated inflammatory changes are seen. No duct stone or ductal dilatation. 5. Small effusions of the visualized lung bases and mild body wall edema/ anasarca. 6. Mild bibasilar atelectasis. Head MRI 05/04/18 00:00 CONCLUSION: 1. Moderate to severe chronic white matter ischemic changes. No recent infarct. 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 2. Sinus mucosal thickening. Chest X-Ray 05/07/18 07:16 CONCLUSION: Support apparatus in good position. Minimal bibasilar parenchymal changes. Discharge Plan - Discharge Disposition Patient Disposition: [facility] Inpatient - Discharge Condition Condition: Stable - Discharge Order Discharge Orders: Discharge Order (Routine); Ordered 05/19/18 Ordered By: Everett Mac - Physicians Team Primary Care Provider: Marce Comer Attending Provider: Donis Lopez Other Providers: Saeed Batres MD ; Movetis,Alere ; Isia Velazquez MD ; Gabriella Hammond MD ; [facility] ; [facility], [facility] ; Lizeth Gamboa MD
[2018-05-18] MEDS ORDERED: Magnesium Sulfate Inj 4 GM in Dextrose 5% in Water Inj 100 ML IV.SIG ONE ×2 (12:09)
[2018-05-18] MEDS: Heparin - SQ 10,000 UNITS/ML Vial SQ SCH ×2 (12:17→20:20)
[2018-05-18] MEDS: levETIRAcetam 500 MG Tablet PO SCH ×2 (12:18→20:21)
[2018-05-18] MEDS: Lactobacillus Acidophilus/L. Spores Tablet PO SCH ×3 (12:18→18:37)
[2018-05-18] MEDS: Mag Sulf 1 gm/100 ml Premix 100 ML IV.SIG SCH ×4 (13:00→18:33)
[2018-05-18] MEDS: dilTIAZem CD 240 MG Capsule PO SCH (18:33)
[2018-05-18] MEDS: Magnesium Oxide 400 MG Tablet PO SCH (20:21)
[2018-05-19 08:20] VITALS: BP 129/72; PULSE 107; RESP 20; TEMP 98.2; O2SAT 99
[2018-05-19] MEDS: Carboxymethylcellulose 0.5% Opth Drops 15 ML Bottle EACH EYE SCH (08:54)
[2018-05-19] MEDS: dilTIAZem CD 240 MG Capsule PO SCH (09:01)
[2018-05-19] MEDS: levETIRAcetam 500 MG Tablet PO SCH (09:01)
--- NOTE | 2018-05-19 09:01 | P.PN ---
Subjective Interval history: Follow-up visit anemia, C. difficile colitis, seizures, BPH, GERD. Patient seen and examined today. States he had a bowel movement, soft. No acute issues overnight. As per nursing, patient had 4 g of magnesium overnight current mag level 2.2. Plan for discharge to rehab today. Physical Exam Vital signs: Vital Signs 05/18/18 12:00 05/18/18 16:00 05/18/18 20:00 Temperature 98.6 F 98.9 F 98.5 F Pulse Rate 93 H 98 H 101 H Respiratory Rate 20 18 18 Blood Pressure 110/58 L 109/55 L 104/57 L Pulse Oximetry 100 98 98 05/18/18 23:10 05/19/18 00:00 05/19/18 04:00 Temperature 97.9 F 98.5 F Pulse Rate 97 H 97 H Respiratory Rate 19 18 18 Blood Pressure 111/62 127/68 Pulse Oximetry 99 97 05/19/18 07:00 05/19/18 08:00 Temperature 98.2 F Pulse Rate 107 H Respiratory Rate 12 20 Blood Pressure 129/72 Pulse Oximetry 99 Intake & Output 05/18/18 05/19/18 05/19/18 18:59 06:59 18:59 Intake Total 300 / 300 100 / 100 Output Total 952 / 952 600 / 600 Balance -652 / -652 -500 / -500 Weight 54.1 kg Intake: IV 300 / 300 100 / 100 Magnesium Sulfate 1 gm/D5W 100 300 / 300 100 / 100 ml Premix 100 ML @ 100 mls/hr IV.SIG Q1H [facility] Rx#:[id number] Output: Urine 950 / 950 Stool 2 / 2 Urine Amount (Catheter) 600 / 600 Straight 600 / 600 Other: Date of Last Bowel Movement 05/18/18 05/18/18 Narrative: GENERAL: This is an AA thin appearing, well-developed patient, in no apparent distress. SKIN: Warm and dry. HEENT: Normocephalic. Pupils equal round and reactive. Nose without bleeding. Airway patent. NECK: Trachea midline. CARDIOVASCULAR: Regular rate and rhythm without murmurs, gallops, or rubs. RESPIRATORY: No wheezes, rales, or rhonchi. GASTROINTESTINAL: Abdomen soft, non-tender, nondistended. Bowel Sounds normoactive x4. MUSCULOSKELETAL: Extremities without clubbing, cyanosis, or edema. NEUROLOGICAL: Awake and alert. No focal neuro deficit. Moves all extremities. Normal speech. - Urinary Catheter Management Straight Cath placed during this visit: yes, but has since been removed by the nurse Reason for continuing: Chronic Urinary Retention Insertion date: 05/18/18 Insertion time: 03:30 Removal date: 05/19/18 Removal time: 03:40 Indwelling Urethral Catheter Cath placed during this visit: no Reason for continuing: Chronic Urinary Retention Results - Labs CBC & Chem 7: 05/18/18 07:05 05/18/18 07:05 Laboratory Results - last 24 hr 05/18/18 05/18/18 05/19/18 07:05 07:05 06:12 WBC 6.2 RBC 3.44 L Hgb 10.9 L Hct 32.0 L MCV 92.9 MCH 31.6 MCHC 34.1 RDW 15.2 Plt Count 343 D MPV 7.8 Neut % (Auto) 61.6 Lymph % (Auto) 26.0 Hanson % (Auto) 9.2 H Eos % (Auto) 2.0 Baso % (Auto) 1.2 Neut # (Auto) 3.8 Lymph # (Auto) 1.6 Hanson # (Auto) 0.6 Eos # (Auto) 0.1 Baso # (Auto) 0.1 WBC Differential . Differential Comment Auto diff final Sodium 139 Potassium 4.2 Chloride 106 Carbon Dioxide 24.6 Anion Gap 8 BUN 17 Creatinine 1.22 Estimated GFR 70 L Random Glucose 75 Calcium 7.9 L Magnesium 1.1 L 2.2 D - Procedures VDRF VENT MANAGEMENT INTUBATION EXTUBATION EGD 05/15/18 Assessment and Plan - Assessment (1) Altered mental status Code(s): R41.82 - Altered mental status, unspecified Status: Acute (2) C. difficile diarrhea Code(s): A04.72 - Enterocolitis due to Clostridium difficile, not specified as recurrent Status: Acute - Plan Patient is a 78-year-old male with a C. difficile toxin colitis and seizures has been extubated. And has now been transferred to our service. Hypomagnesemia -4 g of magnesium given overnight. Repeat mag level 2.2 -P.o. magnesium twice daily. Periodically check mag levels. 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 Normal duodenal mucosa no other abnormalities. Continue PPI. Return EGD in 1 year -Continue Lactinex GERD Gastritis, esophagitis - S/P EGD -Continue on PPI Hypertension Elevated troponin Sinus tachycardia improved -on hydralazine and Cardizem -Continue to monitor Patient has debility, possibly secondary to prolonged hospitalization -Physical therapy evaluated and treated patient. Recommending SNF -Plan to discharge to SNF for strength training. CM following Seizure -Positive cocaine drug screen -Keppra 500 mg twice daily -No seizure activity reported Resolved issues during hospitalization: During hospitalization patient developed acute kidney injury possibly secondary to persistent diarrhea. He has received IV fluids. Current creatinine has improved. Patient also has electrolyte imbalance including hypokalemia secondary to diarrhea. Potassium supplements have been given. Current potassium level within normal. Patient also noted to have sinus tachycardia possibly secondary to dehydration from diarrhea he has been given hydralazine, Cardizem, IV fluids which significantly improve the sinus tachycardia. He will continue to be treated with medications for his hypertension. Patient's hospitalization was also complicated with respiratory failure were and patient was on the ventilator intubated, he was extubated. He completed his hydrocortisone taper 05/13. DVT prop Heparin Discharge Planning: DC to [facility] today.
[2018-05-19] MEDS: Heparin - SQ 10,000 UNITS/ML Vial SQ SCH (09:02)
[2018-05-19] MEDS: Lactobacillus Acidophilus/L. Spores Tablet PO SCH (09:02)
[2018-05-19] MEDS: Magnesium Oxide 400 MG Tablet PO SCH (09:02)
== END 2018-05-19 10:03 ==
LOC: NEDA 09:47 → NEPD 09:47 → HIMC 19:05 → N05 05-10 19:42
PROVIDERS: ADMIT Hospitalist; ATTEND Hospitalist
PROC: COLONOS (2018-05-15 14:19)